=== PATIENT | female | born 1940 | race Caucasian/White ===

== ENCOUNTER → 2016-05-19 | Outpatient (CLI) | payer MEDICARE ==
--- NOTE | 2016-05-23 13:02 | MM ---
Reason for exam: screening (asymptomatic). Last mammogram was performed 1 year and 3 months ago. History: Patient is postmenopausal. Family history of breast cancer in aunt. Took hormonal contraceptives for 5 years beginning at age 24. Took estrogen for 1 year beginning at age 48. Physical Findings: A clinical breast exam by your physician is recommended on an annual basis and results should be correlated with mammographic findings. MG Screening Mammo w CAD Bilateral CC and MLO view(s) were taken. Prior study comparison: February 04, 2015, bilateral MG screening mammo w CAD. November 21, 2013, bilateral MG screening mammo w CAD. The breast tissue is almost entirely fat. There is no discrete abnormality. No significant changes when compared with prior studies. ASSESSMENT: Negative, BI-RAD 1 RECOMMENDATION: Routine screening mammogram of both breasts in 1 year.
== END | disposition home or self-care (01) ==
LOC: RADMAMWWP 14:31
PROVIDERS: ATTEND Family Medicine
DX: Z12.31 Encounter for screening mammogram for malignant neoplasm of breast (principal)

== ENCOUNTER 2017-10-17 07:08 | Day surgery (SDC) | payer MEDICARE ==
[2017-10-13 09:29] VITALS: BMI 22.6
[~2017-10-17 07:08] MED LIST: LACTATED RINGERS 1,000 ML IV SCH; LIDOCAINE 1% 20 ML VIAL (10MG/ML) FOR IV START INTRADERMA PRN
[2017-10-17 07:39] VITALS: RESP 16; TEMP 97.9
[2017-10-17] MEDS ORDERED: PROPOFOL 10 MG/ML 20 ML VIAL IV ONE (08:34)
--- NOTE | 2017-10-17 09:00 | P.PCN ---
Date of Procedure: 10/17/17 Procedure(s) Performed: Procedure: Total colonoscopy. Preoperative diagnosis: Screening for neoplasia. Postoperative diagnosis: Exam within normal limits. Preparation: HalfLytely prep. Sedation: Was provided by anesthesia. Brief clinical history: The patient is a 77-year-old female who is scheduled for this evaluation for screening for neoplasia. The patient had multiple exams over the years and had polyps removed on some these exams. Her last was around 7 years ago. The patient has no abdominal complaints, bleeding or anemia. Procedure: With the patient on her left lateral decubitus position and after informed consent and adequate sedation, the perianal area was inspected and it did not show any fissures or fistulas. There were no masses felt on digital rectal examination. The Olympus CFQ 160L video colonoscope was then inserted in the rectum in the usual fashion and advanced to the cecum. The mucosa appeared healthy. No polyps or tumors were seen or any obvious diverticular disease. I retroflexed the endoscope in the rectum before the endoscope was withdrawn. The patient tolerated the procedure well. Plan: The patient was reassured. At her age, I did not recommend further screening and that can be kept as a contingency based on her overall health in 5 years. She will discuss that with you.
[2017-10-17 09:15] VITALS: BP 143/70; PULSE 59
== END 2017-10-17 09:52 | disposition home or self-care (01) ==
LOC: ORWHC2ENDO 07:08
DX: Z12.11 Encounter for screening for malignant neoplasm of colon (principal); I12.9 Hypertensive chronic kidney disease with stage 1 through stage 4 chronic kidney disease, or unspecified chronic kidney disease; E07.9 Disorder of thyroid, unspecified; N18.9 Chronic kidney disease, unspecified; F41.9 Anxiety disorder, unspecified; F32.9 Major depressive disorder, single episode, unspecified; Z79.899 Other long term (current) drug therapy; Z79.82 Long term (current) use of aspirin
CPT/HCPCS: J2704; G0121

== ENCOUNTER → 2018-03-23 | Outpatient (CLI) | payer MEDICARE ==
--- NOTE | 2018-03-23 17:29 | BD ---
EXAMINATION TYPE: Axial Bone Density DATE OF EXAM: 03/23/2018 COMPARISON: 02/18/2010 CLINICAL HISTORY: 77-year-old female asymptomatic postmenopausal screening Height: 59.5 IN Weight: 122 LBS RISK FACTORS HISTORY OF: Active: YES Diet low in dairy products/other sources of calcium: YES Postmenopausal woman: AGE 48 HYST. Take estrogen and/or progesterone medications: NOT NOW How long: TOOK AGE 48 - 49 MEDICATIONS: Thyroid Medications: YES Which medication: Synthroid How Lon YEARS Additional Medications: SYNTHROID, BLOOD PRESSURE MEDS, XANAX, DEPRESSION EXAM MEASUREMENTS: Bone mineral densitometry was performed using the [employer] System. Bone mineral density as measured about the Lumbar spine is: ----- L1-L4(G/cm2): 1.193 T Score Values are as follows: ----- L2: -0.4 ----- L3: 0.4 ----- L4: 0.2 ----- L1-L4: 0.1 Bone mineral density has: Increased 1.1% since study of: 02/18/2010 Bone mineral density about the R hip (g/cm2): 0.752 Bone mineral density about the L hip (g/cm2): 0.739 T Score values are as follows: -----R Neck: -2.1 -----L Neck: -2.2 -----R Total: -1.1 -----L Total: -1.1 Bone mineral density has: Decreased -7.8% since study of: 02/18/2010 IMPRESSION: Osteopenia (T Score between -2.5 and -1). There is slightly increased risk of fracture and the patient may be considered for treatment. Re-Screen 2-5 years. NOTE: T-SCORE=SD OF THE YOUNG ADULT MEAN.
--- NOTE | 2018-03-27 07:02 | MM ---
Reason for exam: screening (asymptomatic). Last mammogram was performed 1 year and 10 months ago. History: Patient is postmenopausal. Family history of breast cancer in aunt. Took hormonal contraceptives for 5 years beginning at age 24. Took estrogen for 1 year beginning at age 48. Physical Findings: A clinical breast exam by your physician is recommended on an annual basis and results should be correlated with mammographic findings. MG Screening Mammo w CAD Bilateral CC and MLO view(s) were taken. Prior study comparison: May 19, 2016, bilateral MG screening mammo w CAD. February 04, 2015, bilateral MG screening mammo w CAD. There are scattered fibroglandular densities. There are vascular calcifications on the left present since 2013. No suspicious abnormality. No significant changes when compared with prior studies. ASSESSMENT: Benign, BI-RAD 2 RECOMMENDATION: Routine screening mammogram of both breasts in 1 year.
== END | disposition home or self-care (01) ==
LOC: RADMAMWWP 14:32
PROVIDERS: ATTEND Family Medicine
DX: Z12.31 Encounter for screening mammogram for malignant neoplasm of breast (principal); M85.851 Other specified disorders of bone density and structure, right thigh; M85.852 Other specified disorders of bone density and structure, left thigh; Z78.0 Asymptomatic menopausal state
CPT/HCPCS: 77067; 77080

== ENCOUNTER 2018-08-03 15:06 | Observation (INO) | payer MEDICARE ==
[2018-08-03] MEDS ORDERED: SODIUM CHLORIDE 0.9% 1,000 ML IV STA ×2 (15:21→16:54)
[2018-08-03 16:11] LABS: Albumin 3.3 g/dL (3.5-5.0); Calcium 8.2 mg/dL (8.4-10.2); Potassium 4.2 mmol/L (3.5-5.1); Total Bilirubin 0.5 mg/dL (0.2-1.3); Total Protein 5.7 g/dL (6.3-8.2)
[2018-08-03 16:23] LABS: Basophils % (A) 0 %; Eosinophils % (A) 0 %; HCT 27.7 % (34.0-46.0); HGB 9.3 gm/dL (11.4-16.0); Lymphocytes # (A) 0.7 k/uL (1.0-4.8); Lymphocytes % (A) 9 %; MCH 29.9 pg (25.0-35.0); MCHC 33.5 g/dL (31.0-37.0); MCV 89.3 fL (80.0-100.0); Mean Platelet Volume 8.9; Monocytes # (A) 0.5 k/uL (0-1.0); Monocytes % (A) 7 %; Neutrophils # (A) 5.9 k/uL (1.3-7.7); Neutrophils % (A) 81 %; Platelet Count 164 k/uL (150-450); RBC 3.11 m/uL (3.80-5.40); RDW 14.3 % (11.5-15.5); WBC 7.3 k/uL (3.8-10.6)
--- NOTE | 2018-08-03 16:32 | ED ---
Fever HPI - General Source: patient, RN notes reviewed Mode of arrival: ambulatory Limitations: no limitations <Kyle Forte - Last Filed: 08/03/18 16:31> - History of Present Illness MD Complaint: fever, weakness -: days(s) Temperature Source: subjective Associated Symptoms: chills, myalgias Treatments Prior to Arrival: none <Kayden Nieto - Last Filed: 08/03/18 19:28> - General Chief Complaint: Fever Stated Complaint: Fever/poss kidney infection Time Seen by Provider: 08/03/18 15:21 - History of Present Illness Initial Comments: 78-year-old female presents emergency Department with chief complaint of low back pain, fever, dysuria. Patient was seen in urgent care. Who said her urine was clear and sent her here for further evaluation. Patient has known kidney disease. Patient states that she has nausea no URI symptoms denies any night sweats. Denies any diarrhea constipation no melena or hematochezia. She states she just generally does not feel well. (Kyle Forte) - Related Data Home Medications Medication Instructions Recorded Confirmed ALPRAZolam [Xanax] 0.25 mg PO HS 10/13/17 08/03/18 Aspirin [Adult Low Dose Aspirin EC] 81 mg PO DAILY 10/13/17 08/03/18 Citalopram Hydrobromide 20 mg PO DAILY 10/13/17 08/03/18 [Citalopram HBr] Docusate [Colace] 100 mg PO TID 10/13/17 08/03/18 Levothyroxine Sodium [Synthroid] 75 mcg PO DAILY 10/13/17 08/03/18 Verapamil HCl [Verapamil ER] 120 mg PO DAILY 10/13/17 08/03/18 Allergies Allergy/AdvReac Type Severity Reaction Status Date / Time No Known Allergies Allergy Verified 08/03/18 16:00 Review of Systems ROS Other: All systems not noted in ROS Statement are negative. <Kyle Forte - Last Filed: 08/03/18 16:31> ROS Other: All systems not noted in ROS Statement are negative. <Kayden Nieto - Last Filed: 08/03/18 19:28> ROS Statement: Those systems with pertinent positive or pertinent negative responses have been documented in the HPI. Past Medical History Past Medical History: Hypertension, Renal Disease, Thyroid Disorder Additional Past Medical History / Comment(s): constipation, hx IBS, 29 % kidney function, History of Any Multi-Drug Resistant Organisms: None Reported Past Surgical History: Cholecystectomy, Hysterectomy Additional Past Surgical History / Comment(s): yovana cataracts Past Anesthesia/Blood Transfusion Reactions: Motion Sickness Past Psychological History: No Psychological Hx Reported Smoking Status: Never smoker Past Alcohol Use History: None Reported Past Drug Use History: None Reported - Past Family History Father Family Medical History: Cancer <Kyle Forte - Last Filed: 08/03/18 16:31> General Exam Limitations: no limitations General appearance: alert, in no apparent distress Head exam: Present: atraumatic, normocephalic, normal inspection Eye exam: Present: normal appearance, PERRL, EOMI. Absent: scleral icterus, conjunctival injection, periorbital swelling ENT exam: Present: normal exam, normal oropharynx, mucous membranes moist Neck exam: Present: normal inspection, full ROM. Absent: tenderness, meningismus, lymphadenopathy Respiratory exam: Present: normal lung sounds bilaterally. Absent: respiratory distress, wheezes, rales, rhonchi, stridor Cardiovascular Exam: Present: regular rate, normal rhythm, normal heart sounds. Absent: systolic murmur, diastolic murmur, rubs, gallop, clicks GI/Abdominal exam: Present: soft, tenderness (Mild suprapubic), normal bowel sounds. Absent: distended, guarding, rebound, rigid Back exam: Present: full ROM, tenderness (Lower), paraspinal tenderness. Absent: vertebral tenderness Neurological exam: Present: alert, oriented X3, CN II-XII intact Skin exam: Present: warm, dry, intact, normal color. Absent: rash <Kyle Forte - Last Filed: 08/03/18 16:31> General appearance: alert, in no apparent distress Head exam: Present: atraumatic, normocephalic, normal inspection Eye exam: Present: normal appearance, PERRL, EOMI. Absent: scleral icterus, conjunctival injection, periorbital swelling ENT exam: Present: normal exam, mucous membranes moist Neck exam: Present: normal inspection. Absent: tenderness, meningismus, lymphadenopathy Respiratory exam: Present: normal lung sounds bilaterally. Absent: respiratory distress, wheezes, rales, rhonchi, stridor Cardiovascular Exam: Present: regular rate, normal rhythm, normal heart sounds. Absent: systolic murmur, diastolic murmur, rubs, gallop, clicks GI/Abdominal exam: Present: soft, normal bowel sounds. Absent: distended, tenderness, guarding, rebound, rigid Extremities exam: Present: normal inspection, full ROM, normal capillary refill. Absent: tenderness, pedal edema, joint swelling, calf tenderness Back exam: Present: normal inspection Neurological exam: Present: alert, oriented X3, CN II-XII intact Psychiatric exam: Present: normal affect, normal mood Skin exam: Present: warm, dry, intact, normal color. Absent: rash <Kayden Nieto - Last Filed: 08/03/18 19:28> Course <Kayden Nieto - Last Filed: 08/03/18 19:28> Vital Signs 08/03/18 08/03/18 08/03/18 15:16 17:42 19:00 Temperature 101.7 F H 100.0 F H 98.1 F Pulse Rate 86 82 Respiratory 20 18 Rate Blood Pressure 130/63 124/58 O2 Sat by Pulse 98 95 Oximetry - Reevaluation(s) Reevaluation #1: 08/03/18 19:27 Patient unable to give urination, still dehydrated (Kayden Nieto) Medical Decision Making - Lab Data Result diagrams: 08/03/18 15:40 08/03/18 15:40 <Kyle Forte - Last Filed: 08/03/18 16:31> - Lab Data Result diagrams: 08/03/18 15:40 08/03/18 15:40 <Kayden Nieto - Last Filed: 08/03/18 19:28> - Medical Decision Making 70 female the ER for evaluation positive UTI. Patient will be admitted for IV antibiotics (Kayden Nieto) - Lab Data Lab Results 08/03/18 08/03/18 08/03/18 Range/Units 15:40 15:40 15:40 WBC 7.3 (3.8-10.6) k/uL RBC 3.11 L (3.80-5.40) m/uL Hgb 9.3 L (11.4-16.0) gm/dL Hct 27.7 L (34.0-46.0) % MCV 89.3 (80.0-100.0) fL MCH 29.9 (25.0-35.0) pg MCHC 33.5 (31.0-37.0) g/dL RDW 14.3 (11.5-15.5) % Plt Count 164 (150-450) k/uL Neutrophils % 81 % Lymphocytes % 9 % Monocytes % 7 % Eosinophils % 0 % Basophils % 0 % Neutrophils # 5.9 (1.3-7.7) k/uL Lymphocytes # 0.7 L (1.0-4.8) k/uL Monocytes # 0.5 (0-1.0) k/uL Eosinophils # 0.0 (0-0.7) k/uL Basophils # 0.0 (0-0.2) k/uL Sodium 130 L (137-145) mmol/L Potassium 4.2 (3.5-5.1) mmol/L Chloride 101 (98-107) mmol/L Carbon Dioxide 19 L (22-30) mmol/L Anion Gap 10 mmol/L BUN 31 H (7-17) mg/dL Creatinine 1.30 H (0.52-1.04) mg/dL Est GFR (CKD-EPI)AfAm 46 (>60 ml/min/1.73 sqM) Est GFR (CKD-EPI)NonAf 40 (>60 ml/min/1.73 sqM) Glucose 127 H (74-99) mg/dL Plasma Lactic Acid Carlos 0.7 (0.7-2.0) mmol/L Calcium 8.2 L (8.4-10.2) mg/dL Total Bilirubin 0.5 (0.2-1.3) mg/dL AST 34 (14-36) U/L ALT 23 (9-52) U/L Alkaline Phosphatase 50 (38-126) U/L Total Protein 5.7 L (6.3-8.2) g/dL Albumin 3.3 L (3.5-5.0) g/dL Lipase 199 (23-300) U/L Disposition <Kyle Forte - Last Filed: 08/03/18 16:31> Is patient prescribed a controlled substance at d/c from ED?: No <Kayden Nieto - Last Filed: 08/03/18 19:28> Clinical Impression: UTI (urinary tract infection), Fever, Dehydration Disposition: ADMITTED IP TO THIS [facility] Condition: Good Referrals: Kayden Trammell MD [Primary Care Provider] - 1-2 days
--- NOTE | 2018-08-03 16:51 | CT ---
EXAMINATION TYPE: CT abdomen pelvis wo con DATE OF EXAM: 08/03/2018 COMPARISON: None HISTORY: Dysuria and low back pain CT DLP: 323.1 mGycm Automated exposure control for dose reduction was used. TECHNIQUE: Helical acquisition of images was performed from the lung bases through the pelvis. FINDINGS: Within the limits of noncontrast CT the following observations are made. LUNG BASES: There are two ill-defined 3 cm consolidative opacities in the periphery of the right lung base, suggesting multifocal bronchopneumonia if clinically corroborated. LIVER/GB: No significant abnormality is appreciated. PANCREAS: No significant abnormality is seen. SPLEEN: No significant abnormality is seen. ADRENALS: No significant abnormality is seen. KIDNEYS: The kidneys and collecting systems are unremarkable. No renal or ureteral calcifications. Th e urinary bladder is not distended and has normal appearance as seen. FREE AIR: No free air is visualized RETROPERITONEAL ADENOPATHY: None visualized REPRODUCTIVE ORGANS: No significant abnormality is seen URINARY BLADDER: No significant abnormality is seen. PELVIC ADENOPATHY: None visualized. OSSEOUS STRUCTURES: No focal skeletal lesions. There is levoscoliosis apex at the L2-3 level. Mult ilevel lumbar spondylosis changes, consisting of moderate and marked degenerative facet changes and m ild and moderate degenerative disc changes. The morphology of the vertebral segments is maintained. T here is degenerative 3 mm L4 anterior listhesis with respect to L5. BOWEL: No significant abnormality is seen. IMPRESSION: NO DEFINITE ACUTE PROCESS. HOWEVER, RIGHT LUNG BASE PARTIAL AIRLESSNESS NOTED.
[2018-08-03 20:36] LABS: Amorphous Sediment,Urine Rare /hpf; Appearance,Urine Cloudy (Clear); Bilirubin,Urine Negative (Negative); Blood,Urine Negative (Negative); Color,Urine Yellow; Glucose,Urine (UA) Negative (Negative); Granular Casts,Urine 16 /lpf (0); Hyaline Casts,Urine 1 /lpf (0-2); Ketones,Urine Negative (Negative); Leukocyte Esterase,Urine Small (Negative); Mucus,Urine Rare /hpf; Nitrite,Urine Negative (Negative); PH, Urine 5.5 (5.0-8.0); Protein,Urine 1+ (Negative); RBC,Urine 1 /hpf (0-5); Specific Gravity,Urine 1.015 (1.001-1.035); Squamous Epithelial Cell,Urine 3 /hpf (0-4); Urobilinogen,Urine <2.0 mg/dL (<2.0)
[2018-08-03] MEDS ORDERED: AZITHROMYCIN 500 MG in SODIUM CHLORIDE 0.9% 250 ML IVPB STA (20:51)
[2018-08-03] MEDS: SODIUM CHLORIDE 0.9% 1,000 ML IV ONE (20:56)
--- NOTE | 2018-08-03 21:17 | XR ---
EXAMINATION: XR chest 2V DATE AND TIME: 08/03/2018 9:02 PM CLINICAL INDICATION: PHH; fever TECHNIQUE: Departmental protocol COMPARISON: None FINDINGS: There is partially-confluent consolidative opacity which is ill-defined throughout the right lower shelly ng zone. Lungs are otherwise unremarkable. The pleural spaces are negative. The cardiac silhouette is not enlarged. The remainder of the mediastinal silhouette is unremarkable. The skeletal structures and soft tissues are negative for acute findings. IMPRESSION: Right lower lung zone pneumonia. Recommend 6 week follow-up PA and lateral chest radiographs to prove resolution.
[2018-08-03 21:39] VITALS: BMI 24.7
[2018-08-03] MEDS: ASPIRIN 81 MG PO SCH (22:09)
[2018-08-03] MEDS: ALPRAZolam 0.25 MG TAB PO SCH (22:09)
[2018-08-03] MEDS: DOCUSATE 100 MG CAP PO SCH (22:51)
[2018-08-04] MEDS: ACETAMINOPHEN TAB 325 MG TAB PO PRN ×3 (00:41→23:21)
[2018-08-04] MEDS: SODIUM CHLORIDE 0.9% 1,000 ML IV ONE (04:32)
[2018-08-04] MEDS: LEVOTHYROXINE 75 MCG TAB PO SCH (07:01)
[2018-08-04] MEDS: CITALOPRAM HYDROBROMIDE 20 MG TAB PO SCH (08:53)
[2018-08-04] MEDS: DOCUSATE 100 MG CAP PO SCH ×3 (08:53→19:59)
[2018-08-04] MEDS: ASPIRIN 81 MG PO SCH (08:53)
[2018-08-04] MEDS ORDERED: VERAPAMIL SR 120 MG TABLET.ER PO SCH (09:00)
[2018-08-04] MEDS: SODIUM CHLORIDE 0.9% 1,000 ML IV SCH ×2 (12:18→20:01)
--- NOTE | 2018-08-04 13:00 | P.HPIM ---
History of Present Illness 78-year-old pleasant female came in with compensative dysuria fever patient to high-grade fever yesterday urine are not significant abnormal small leukocyte esterase and some white blood cell count but no other source of infection was appreciated CAT scan was done which did not show any pneumonia. A CAT scan was actually for abdomen chest x-ray did not show any pneumonic process patient is comparing of cough without any significant sputum production patient was started on Rocephin and azithromycin azithromycin was discontinued Rocephin is being continued at this time. Patient does have infiltrate in the chair CAT scan but no air bronchogram not consistent with pneumonia.she does have urinary symptoms. Review of Systems i REVIEW OF SYSTEMS: CONSTITUTIONAL: No fever, no malaise, no fatigue. HEENT: No recent visual problems or hearing problems. Denied any sore throat. CARDIOVASCULAR: No chest pain, orthopnea, PND, no palpitations, no syncope. PULMONARY: No shortness of breath, no cough, no hemoptysis. GASTROINTESTINAL: No diarrhea, no nausea, no vomiting, no abdominal pain. NEUROLOGICAL: No headaches, no weakness, no numbness. HEMATOLOGICAL: Denies any bleeding or petechiae. GENITOURINARY: as mentioned in HPI MUSCULOSKELETAL/RHEUMATOLOGICAL: Denies any joint pain, swelling, or any muscle pain. ENDOCRINE: Denies any polyuria or polydipsia. The rest of the 14-point review of systems is negative. Past Medical History Past Medical History: Hypertension, Renal Disease, Thyroid Disorder Additional Past Medical History / Comment(s): constipation, hx IBS, 29 % kidney function, History of Any Multi-Drug Resistant Organisms: None Reported Past Surgical History: Cholecystectomy, Hysterectomy Additional Past Surgical History / Comment(s): yovana cataracts Past Anesthesia/Blood Transfusion Reactions: No Reported Reaction Past Psychological History: No Psychological Hx Reported Smoking Status: Never smoker Past Alcohol Use History: None Reported Past Drug Use History: None Reported - Past Family History Father Family Medical History: Cancer Medications and Allergies Home Medications Medication Instructions Recorded Confirmed Type ALPRAZolam [Xanax] 0.25 mg PO HS 10/13/17 08/03/18 History Aspirin [Adult Low Dose Aspirin EC] 81 mg PO DAILY 10/13/17 08/03/18 History Citalopram Hydrobromide 20 mg PO DAILY 10/13/17 08/03/18 History [Citalopram HBr] Docusate [Colace] 100 mg PO TID 10/13/17 08/03/18 History Levothyroxine Sodium [Synthroid] 75 mcg PO DAILY 10/13/17 08/03/18 History Verapamil HCl [Verapamil ER] 120 mg PO DAILY 10/13/17 08/03/18 History Allergies Allergy/AdvReac Type Severity Reaction Status Date / Time No Known Allergies Allergy Verified 08/03/18 21:39 Physical Exam Vitals: Vital Signs Temp Pulse Pulse Resp BP BP Pulse Ox 08/04/18 08:52 92/51 08/04/18 08:25 97.8 F 71 16 85/50 96 08/04/18 04:48 97.9 F 62 18 117/69 94 L 08/04/18 00:50 98.6 F 72 18 118/56 94 L 08/04/18 00:00 72 18 08/03/18 22:54 66 16 08/03/18 21:21 98.3 F 66 16 126/64 97 08/03/18 21:19 98.3 F 66 16 126/64 97 08/03/18 20:09 100.1 F H 69 17 120/55 100 08/03/18 19:00 98.1 F 82 18 124/58 95 08/03/18 17:42 100.0 F H 08/03/18 15:16 101.7 F H 86 20 130/63 98 Intake and Output 08/03/18 08/04/18 08/04/18 22:59 06:59 14:59 Other: Voiding Method Toilet Toilet # Voids 1 1 1 Weight 53.977 kg PHYSICAL EXAMINATION: GENERAL: The patient is alert and oriented x3, not in any acute distress. Well developed, well nourished. HEENT: Pupils are round and equally reacting to light. EOMI. No scleral icterus. No conjunctival pallor. Normocephalic, atraumatic. No pharyngeal erythema. No thyromegaly. CARDIOVASCULAR: S1 and S2 present. No murmurs, rubs, or gallops. PULMONARY: Chest is clear to auscultation, no wheezing or crackles. ABDOMEN: Soft, nontender, nondistended, normoactive bowel sounds. No palpable organomegaly. MUSCULOSKELETAL: No joint swelling or deformity. EXTREMITIES: No cyanosis, clubbing, or pedal edema. NEUROLOGICAL: Gross neurological examination did not reveal any focal deficits. SKIN: No rashes. Results CBC & Chem 7: 08/03/18 15:40 08/03/18 15:40 Labs: Abnormal Lab Results - Last 24 Hours (Table) 08/03/18 08/03/18 08/03/18 Range/Units 15:40 15:40 20:00 RBC 3.11 L (3.80-5.40) m/uL Hgb 9.3 L (11.4-16.0) gm/dL Hct 27.7 L (34.0-46.0) % Lymphocytes # 0.7 L (1.0-4.8) k/uL Sodium 130 L (137-145) mmol/L Carbon Dioxide 19 L (22-30) mmol/L BUN 31 H (7-17) mg/dL Creatinine 1.30 H (0.52-1.04) mg/dL Glucose 127 H (74-99) mg/dL Calcium 8.2 L (8.4-10.2) mg/dL Total Protein 5.7 L (6.3-8.2) g/dL Albumin 3.3 L (3.5-5.0) g/dL Urine Appearance Cloudy H (Clear) Urine Protein 1+ H (Negative) Ur Leukocyte Esterase Small H (Negative) Urine WBC 7 H (0-5) /hpf Amorphous Sediment Rare H (None) /hpf Urine Mucus Rare H (None) /hpf Thrombosis Risk Factor Assmnt - Choose All That Apply Each Factor Represents 1 point: Hx of IBD, Varicose veins Other Risk Factors: No Other congenital or acquired thrombophilia - If yes, enter type in comment: No Thrombosis Risk Factor Assessment Total Risk Factor Score: 2 Thrombosis Risk Factor Assessment Level: Low Risk Assessment and Plan Plan: -sepsis secondary to urinary tract infection most probably do not believe patient has pneumonia. Patient will continue on Rocephin and azithromycin were dyspnea -Acute renal failure prerenal azotemia from sepsis and patient will continued on IV fluids and repeat the CBC and basic metabolic profile tomorrow -hypovolemic hyponatremia expected to improve with IV fluids -hypertension -Hypothyroidism For above-mentioned chronic medical problems patient will be resumed and continued on home medications. DVT prophylaxis early ambulation
[2018-08-04] MEDS: ALPRAZolam 0.25 MG TAB PO SCH (19:59)
[2018-08-04] MEDS ORDERED: CALCIUM CARBONATE 500 MG CHEWABLE PO PRN (20:50)
[2018-08-04] MEDS ORDERED: AZITHROMYCIN 500 MG in SODIUM CHLORIDE 0.9% 250 ML IVPB SCH (21:00)
[2018-08-04 22:36] VITALS: RESP 18
[2018-08-05] MEDS: LEVOTHYROXINE 75 MCG TAB PO SCH (05:23)
[2018-08-05 05:42] VITALS: BP 121/64; PULSE 86; TEMP 98.1
[2018-08-05] MEDS: DOCUSATE 100 MG CAP PO SCH ×2 (07:24→07:25)
[2018-08-05] MEDS: CITALOPRAM HYDROBROMIDE 20 MG TAB PO SCH (07:24)
[2018-08-05] MEDS: ASPIRIN 81 MG PO SCH (07:24)
[2018-08-05 08:16] LABS: Calcium 7.9 mg/dL (8.4-10.2); Potassium 4.5 mmol/L (3.5-5.1)
[2018-08-05 08:39] LABS: HCT 27.5 % (34.0-46.0); HGB 9.2 gm/dL (11.4-16.0); MCHC 33.3 g/dL (31.0-37.0); Mean Platelet Volume 8.4; Platelet Count 194 k/uL (150-450); RBC 3.05 m/uL (3.80-5.40); RDW 13.4 % (11.5-15.5); WBC 6.7 k/uL (3.8-10.6)
[2018-08-05] MEDS: SODIUM CHLORIDE 0.9% 1,000 ML IV SCH (09:17)
--- NOTE | 2018-08-05 15:27 | P.DS ---
Providers Date of admission: 08/03/18 19:25 Attending physician: Yamilex Singh Primary care physician: [facility] Course: 78-year-old pleasant female came in with compensative dysuria fever patient to high-grade fever yesterday urine are not significant abnormal small leukocyte esterase and some white blood cell count but no other source of infection was appreciated CAT scan was done which did not show any pneumonia. A CAT scan was actually for abdomen chest x-ray did not show any pneumonic process patient is comparing of cough without any significant sputum production patient was started on Rocephin and azithromycin azithromycin was discontinued Rocephin is being continued at this time. Patient does have infiltrate in the chair CAT scan but no air bronchogram not consistent with pneumonia.she does have urinary symptoms. 08/05/2018 Patient is afebrile, I do not have any urine cultures available at this time but patient is insisting on discharge because of which I'll discharged on empiric antibiotics Ceftin for 5 more days comparing total 7 day of therapy. PHYSICAL EXAMINATION: GENERAL: The patient is alert and oriented x3, not in any acute distress. Well developed, well nourished. HEENT: Pupils are round and equally reacting to light. EOMI. No scleral icterus. No conjunctival pallor. Normocephalic, atraumatic. No pharyngeal erythema. No thyromegaly. CARDIOVASCULAR: S1 and S2 present. No murmurs, rubs, or gallops. PULMONARY: Chest is clear to auscultation, no wheezing or crackles. ABDOMEN: Soft, nontender, nondistended, normoactive bowel sounds. No palpable organomegaly. MUSCULOSKELETAL: No joint swelling or deformity. EXTREMITIES: No cyanosis, clubbing, or pedal edema. NEUROLOGICAL: Gross neurological examination did not reveal any focal deficits. SKIN: No rashes. Assessment and Plan Plan: -sepsis secondary to urinary tract infection most probably do not believe patient has pneumonia. -Acute renal failure prerenal azotemia from sepsis patient has improvement in serum creatinine appears to have chronic kidney disease secondary to nephrosclerosis her C Isabelle is probably stage II or 3 -hypovolemic hyponatremia improved with IV fluids -hypertension Patient Condition at Discharge: Good Plan - Discharge Summary Discharge Rx Participant: No New Discharge Prescriptions: New Cefuroxime Axetil [Ceftin] 500 mg PO BID 5 Days #10 tab Continue Docusate [Colace] 100 mg PO TID ALPRAZolam [Xanax] 0.25 mg PO HS Verapamil HCl [Verapamil ER] 120 mg PO DAILY Levothyroxine Sodium [Synthroid] 75 mcg PO DAILY Aspirin [Adult Low Dose Aspirin EC] 81 mg PO DAILY Citalopram Hydrobromide [Citalopram HBr] 20 mg PO DAILY Discharge Medication List ALPRAZolam [Xanax] 0.25 mg PO HS 10/13/17 [History] Aspirin [Adult Low Dose Aspirin EC] 81 mg PO DAILY 10/13/17 [History] Citalopram Hydrobromide [Citalopram HBr] 20 mg PO DAILY 10/13/17 [History] Docusate [Colace] 100 mg PO TID 10/13/17 [History] Levothyroxine Sodium [Synthroid] 75 mcg PO DAILY 10/13/17 [History] Verapamil HCl [Verapamil ER] 120 mg PO DAILY 10/13/17 [History] Cefuroxime Axetil [Ceftin] 500 mg PO BID 5 Days #10 tab 08/05/18 [Rx] Follow up Appointment(s)/Referral(s): Kayden Trammell MD [Primary Care Provider] - 3 Days (call office for appt during business hours) Patient Instructions/Handouts: Urinary Tract Infection in Women (DC) Discharge Disposition: HOME SELF-CARE
== END 2018-08-05 14:48 | disposition home or self-care (01) ==
LOC: EC 15:06 → 6PED 19:25 → 4MS4W 08-04 09:31
PROVIDERS: ADMIT Hospitalist; ATTEND Hospitalist
DX: A41.9 Sepsis, unspecified organism (principal); N39.0 Urinary tract infection, site not specified; N17.9 Acute kidney failure, unspecified; R65.20 Severe sepsis without septic shock; I12.9 Hypertensive chronic kidney disease with stage 1 through stage 4 chronic kidney disease, or unspecified chronic kidney disease; N18.2 Chronic kidney disease, stage 2 (mild); E87.1 Hypo-osmolality and hyponatremia; E86.1 Hypovolemia; E03.9 Hypothyroidism, unspecified; K58.9 Irritable bowel syndrome, unspecified; K59.00 Constipation, unspecified; R91.8 Other nonspecific abnormal finding of lung field; E86.0 Dehydration; I83.90 Asymptomatic varicose veins of unspecified lower extremity; Z79.82 Long term (current) use of aspirin; Z79.890 Hormone replacement therapy; Z79.899 Other long term (current) drug therapy; Z90.49 Acquired absence of other specified parts of digestive tract; Z90.710 Acquired absence of both cervix and uterus; Z98.42 Cataract extraction status, left eye; Z98.41 Cataract extraction status, right eye; Z80.9 Family history of malignant neoplasm, unspecified
CPT/HCPCS: 96366 ×3; 96367; 96361; 96365; 99285; 36415; 80053; 80048; 83605; 83690; 85025; 85027; 81001; 87040; 71046; 74176; G0378 ×3; J0456; J0696 ×3

== ENCOUNTER → 2018-12-27 | Outpatient (CLI) | payer MEDICARE ==
--- NOTE | 2018-12-27 12:55 | US ---
EXAMINATION TYPE: US kidneys/renal and bladder DATE OF EXAM: 12/27/2018 COMPARISON: NONE CLINICAL HISTORY: N18.3 CKD Stage 3. EXAM MEASUREMENTS: Right Kidney: 7.8 x 3.5 x 3.4 cm Left Kidney: 8.7 x 4.5 x 3.6 cm Right Kidney: atrophic with cortical thinning Left Kidney: atrophic with cortical thinning Bladder: wnl Bilateral Jets seen: yes There is no evidence for hydronephrosis at this point in time. No nephrolithiasis is seen. No edgard s are identified. The urinary bladder is anechoic. Bilateral ureteral jets are seen. IMPRESSION: Sequela of chronic medical renal disease with bilateral cortical renal thinning and small size of the kidneys. No hydronephrosis of either kidney.
== END | disposition home or self-care (01) ==
LOC: RADUSWWP 12:01
PROVIDERS: ATTEND Internal Medicine Nephrology
DX: N18.3 Chronic kidney disease, stage 3 (moderate) (principal)
CPT/HCPCS: 76770

== ENCOUNTER → 2020-03-13 | Outpatient (CLI) | payer MEDICARE ==
--- NOTE | 2020-03-16 09:36 | MM ---
Reason for exam: screening (asymptomatic). Last mammogram was performed 2 years ago. History: Patient is postmenopausal. Family history of breast cancer in aunt. Took hormonal contraceptives for 5 years beginning at age 24. Took estrogen for 1 year beginning at age 48. Physical Findings: A clinical breast exam by your physician is recommended on an annual basis and results should be correlated with mammographic findings. MG 3D Screening Mammo W/Cad Bilateral CC and MLO view(s) were taken. Prior study comparison: March 23, 2018, bilateral MG screening mammo w CAD. May 19, 2016, bilateral MG screening mammo w CAD. The breast tissue is heterogeneously dense. This may lower the sensitivity of mammography. Focal asymmetry upper outer right breast posterior third position. This finding is changed when compared with previous exams. ASSESSMENT: Incomplete: need additional imaging evaluation, BI-RAD 0 RECOMMENDATION: Special view mammogram of the right breast. If lesion persists on supplemental views, image directed ultrasound is recommended. [facility] will attempt to contact patient to return for supplemental views and ultrasound if indicated.
== END | disposition home or self-care (01) ==
LOC: RADMAMWWP 09:39
PROVIDERS: ATTEND Family Medicine
DX: Z12.31 Encounter for screening mammogram for malignant neoplasm of breast (principal)
CPT/HCPCS: 77063; 77067

== ENCOUNTER → 2020-04-03 | Outpatient (CLI) | payer MEDICARE ==
--- NOTE | 2020-04-03 12:00 | MM ---
Reason for exam: additional evaluation requested from abnormal screening. Last mammogram was performed 1 month ago. History: Patient is postmenopausal. Family history of breast cancer in aunt. Took hormonal contraceptives for 5 years beginning at age 24. Took estrogen for 1 year beginning at age 48. Physical Findings: Nurse did not find any significant physical abnormalities on exam. MG 3D Work Up W/Cad RT Spot compression CC, spot compression MLO, and LM view(s) were taken of the right breast. Prior study comparison: March 13, 2020, bilateral MG 3d screening mammo w/cad. March 23, 2018, bilateral MG screening mammo w CAD. There is no discrete abnormality including area of concern. These results were verbally communicated with the patient and result sheet given to the patient on 04/03/20. ASSESSMENT: Negative, BI-RAD 1 RECOMMENDATION: Return to routine screening mammogram schedule for both breasts.
--- NOTE | 2020-04-03 12:51 | BD ---
EXAMINATION TYPE: Axial Bone Density DATE OF EXAM: 04/03/2020 COMPARISON: 03/23/2018 CLINICAL HISTORY: Height: 59 IN Weight: 114 LBS RISK FACTORS HISTORY OF: Active: YES Diet low in dairy products/other sources of calcium: YES Postmenopausal woman: TOTAL HYST Take estrogen and/or progesterone medications: NOT NOW How long: TOOK PREVIOUSLY FOR 1 YEAR MEDICATIONS: Thyroid Medications: YES Which medication: Synthroid How Lon+ YEARS Additional Medications: VIT D, VERAPAMIL, SYNTHROID, ASPIRIN, ALPRAZOLOM, STOOL SOFTENER, CITALOPRAM EXAM MEASUREMENTS: Bone mineral densitometry was performed using the [employer]. Bone mineral density as measured about the Lumbar spine is: ----- L1-L4(G/cm2): 1.189 T Score Values are as follows: ----- L2: 0.3 ----- L3: 0.8 ----- L4: -0.4 ----- L1-L4: 0.1 Bone mineral density has: Increased 1.1% since study of: 03/23/2018 Bone mineral density about the R hip (g/cm2): 0.761 Bone mineral density about the L hip (g/cm2): 0.723 T Score values are as follows: -----R Neck: -2.0 -----L Neck: -2.3 -----R Total: -1.6 -----L Total: -1.4 Bone mineral density has: Decreased -5.5% since study of: 03/23/2018 IMPRESSION: Osteopenia NOTE: T-SCORE=SD OF THE YOUNG ADULT MEAN.
== END | disposition home or self-care (01) ==
LOC: RADBDWWP 09:06
PROVIDERS: ATTEND Family Medicine
DX: M85.80 Other specified disorders of bone density and structure, unspecified site (principal); R92.8 Other abnormal and inconclusive findings on diagnostic imaging of breast; Z78.0 Asymptomatic menopausal state
CPT/HCPCS: 77080; 77065; G0279; 77061

== ENCOUNTER 2020-08-25 13:01 | Inpatient (IN) | payer MEDICARE ==
[2020-08-25] MEDS ORDERED: SODIUM CHLORIDE 0.9% 500 ML 500 ML IV STA (13:54)
--- NOTE | 2020-08-25 14:07 | ED ---
General Adult HPI - General Source: patient, EMS, RN notes reviewed, old records reviewed Mode of arrival: EMS Limitations: no limitations - History of Present Illness -: hour(s) (2) Severity scale (1-10): 0 Improves with: rest Associated Symptoms: denies other symptoms Treatments Prior to Arrival: other (CPR) <Ghassan Ricketts - Last Filed: 08/25/20 15:56> <Edin Mckeon - Last Filed: 08/25/20 15:57> - General Chief complaint: Syncope Stated complaint: Syncope - History of Present Illness Initial comments: 80-year-old white female, alert and oriented 4, presents to the emergency room with a syncopal episode at [employer] during the . Patient states that she stood up in the [employer] was doing some singing and then felt a little lightheaded she sat back down but then he has been to stand again at that point she started to walk out and felt lightheaded. She leaned over the table and that was lasting she remembered. Bystanders stated dates started CPR. Patient does not recall this. Patient is alert and oriented at this time vital signs are stable with heart rate of 78. She is well-appearing. She has a history of hypertension, renal disease, irritable bowel syndrome, CKD and anxiety. She has surgical history of cholecystectomy and hysterectomy. Patient states that she takes Xanax and is due to see her primary care doctor on September 03. Patient states at home she been taking care of her has Alzheimer's and it's been increasingly stressful. Her daughter is just moved in to help her. And then had this done in the family. She has increased stress and has not been hydra ting well. (Ghassan Ricketts) - Related Data Home Medications Medication Instructions Recorded Confirmed ALPRAZolam [Xanax] 0.25 mg PO HS 10/13/17 08/03/18 Aspirin [Adult Low Dose Aspirin EC] 81 mg PO DAILY 10/13/17 08/03/18 Citalopram Hydrobromide 20 mg PO DAILY 10/13/17 08/03/18 [Citalopram HBr] Docusate [Colace] 100 mg PO TID 10/13/17 08/03/18 Levothyroxine Sodium [Synthroid] 75 mcg PO DAILY 10/13/17 08/03/18 Verapamil HCl [Verapamil ER] 120 mg PO DAILY 10/13/17 08/03/18 Previous Rx's Medication Instructions Recorded Cefuroxime Axetil [Ceftin] 500 mg PO BID 5 Days #10 tab 08/05/18 Allergies Allergy/AdvReac Type Severity Reaction Status Date / Time No Known Allergies Allergy Verified 08/25/20 13:11 Review of Systems ROS Other: All systems not noted in ROS Statement are negative. <Ghassan Ricketts - Last Filed: 08/25/20 15:56> ROS Other: All systems not noted in ROS Statement are negative. <Edin Mckeon - Last Filed: 08/25/20 15:57> ROS Statement: Those systems with pertinent positive or pertinent negative responses have been documented in the HPI. Past Medical History Past Medical History: Hypertension, Renal Disease, Thyroid Disorder Additional Past Medical History / Comment(s): constipation, hx IBS, 29 % kidney function, History of Any Multi-Drug Resistant Organisms: None Reported Past Surgical History: Cholecystectomy, Hysterectomy Additional Past Surgical History / Comment(s): yovana cataracts Past Anesthesia/Blood Transfusion Reactions: No Reported Reaction Past Psychological History: No Psychological Hx Reported Smoking Status: Never smoker Past Alcohol Use History: None Reported Past Drug Use History: None Reported - Past Family History Father Family Medical History: Cancer <Ghassan Ricketts - Last Filed: 08/25/20 15:56> General Exam Limitations: no limitations General appearance: alert, in no apparent distress Head exam: Present: atraumatic, normocephalic, normal inspection Eye exam: Present: normal appearance, PERRL, EOMI. Absent: scleral icterus, conjunctival injection, periorbital swelling Pupils: Present: normal accommodation ENT exam: Present: normal exam, mucous membranes dry Neck exam: Present: normal inspection, full ROM. Absent: tenderness, meningismus, lymphadenopathy, thyromegaly Respiratory exam: Present: normal lung sounds bilaterally, chest wall tenderness. Absent: respiratory distress, wheezes, rales, rhonchi, stridor, a ccessory muscle use, decreased breath sounds, prolonged expiratory Cardiovascular Exam: Present: regular rate, normal rhythm, normal heart sounds. Absent: systolic murmur, diastolic murmur, rubs, gallop, clicks GI/Abdominal exam: Present: soft, normal bowel sounds. Absent: distended, tenderness, guarding, rebound, rigid Extremities exam: Present: normal inspection, full ROM, normal capillary refill. Absent: tenderness, pedal edema, joint swelling, calf tenderness Back exam: Present: normal inspection, full ROM. Absent: tenderness, CVA tenderness (R), CVA tenderness (L), muscle spasm, paraspinal tenderness, vertebral tenderness, rash noted Neurological exam: Present: alert, oriented X3, CN II-XII intact Psychiatric exam: Present: normal affect, normal mood Skin exam: Present: warm, dry, intact, normal color. Absent: rash, cyanosis, diaphoretic, erythema, petechiae, pallor, mottled <Ghassan Ricketts - Last Filed: 08/25/20 15:56> Course - Reevaluation(s) Time: 15:24 <Ghassan Ricketts - Last Filed: 08/25/20 15:56> <Edin Mckeon - Last Filed: 08/25/20 15:57> Vital Signs 08/25/20 13:03 Pulse Rate 81 Respiratory 18 Rate Blood Pressure 125/68 O2 Sat by Pulse 97 Oximetry - Reevaluation(s) Reevaluation #1: 08/25/20 15:24 Dr. Mckeon to bedside. Patient was offered to be admitted to the hospital for observation but refuses. States that she wants to go home and will follow up with her own primary Doctor or return to the emergency room with worsening symptoms. Her son is at the bedside and also agrees that he will bring her back with worsening symptoms. Patient is alert and oriented 4. (Ghassan Ricketts) Reevaluation #2: 08/25/20 15:57 PA supervision: I proceeded [id number] evaluation the patient. She did present with complaints of a syncopal episode while at a service in a hot environment. Patient did apparently have CPR performed by a bystander who does she has to stop with a were doing. Patient is awake alert oriented 3 with no apparent distress he felt back to her normal self. Was however found during the evaluation that demonstrate evidence of anemia per the labs. Patient has agreed at this time to stay in the hospital for inpatient evaluation and treatment I did discuss this with her and her son was present. I do agree with the assessment and plan. (Edin Mckeon) EKG Findings - EKG Results: EKG: sinus rhythm (Ventricular rate of 78, NC interval of 0.172, QRS of 0.112, QTC 0.490) <Ghassan Ricketts - Last Filed: 08/25/20 15:56> Medical Decision Making - Lab Data Result diagrams: 08/25/20 14:40 08/25/20 14:11 <Ghassan Ricketts - Last Filed: 08/25/20 15:56> - Lab Data Result diagrams: 08/25/20 14:40 08/25/20 14:11 <Edin Mckeon - Last Filed: 08/25/20 15:57> - Medical Decision Making EKG does not show any ST elevation or acute changes. Heart size is normal limits, there is degenerative changes of her thoracic spine and osteopenia. No pulmonary disease. There is a new wedge compression fracture deformity of the mid thoracic vertebral body which was not seen in July 2018. However patient does state that she has low back pain chronically and sees Dr. Trammell denies any recent injury or worsening pain. Patient has a negative straight leg test bilaterally. No pain with palpation to the spine. Hemoglobin is 6.4 patient states she does have a history of anemia with her last hemoglobin 9.2 in July 2018. Potassium is 4.8, BUN is 76 and creatinine is 1.66 which is consistent for patient with chronic kidney disease last labs being a BUN of 23 and a creatinine of 1.21 in July 2018. This is also consistent with patient's dehyd ration today she states she did not drink anything prior to the because she did not want to urinate. Patient has dry sticky mucous membranes, Patient was given a 500cc of normal saline, states she is feeling much better. She believes this was just dehydration. Dr. Mckeon to bedside to evaluate patient. Son at bedside. Patient will be admitted as observation for symptomatic anemia. (Ghassan Ricketts) - Lab Data Lab Results 08/25/20 08/25/20 08/25/20 Range/Units 14:11 14:11 14:40 WBC 7.9 (3.8-10.6) k/uL RBC 2.02 L (3.80-5.40) m/uL Hgb 6.4 L* (11.4-16.0) gm/dL Hct 19.8 L* (34.0-46.0) % MCV 97.6 (80.0-100.0) fL MCH 31.6 (25.0-35.0) pg MCHC 32.4 (31.0-37.0) g/dL RDW 14.5 (11.5-15.5) % Plt Count 190 (150-450) k/uL MPV 8.1 Neutrophils % 82 % Lymphocytes % 12 % Monocytes % 4 % Eosinophils % 1 % Basophils % 1 % Neutrophils # 6.5 (1.3-7.7) k/uL Lymphocytes # 1.0 (1.0-4.8) k/uL Monocytes # 0.3 (0-1.0) k/uL Eosinophils # 0.1 (0-0.7) k/uL Basophils # 0.0 (0-0.2) k/uL Sodium 135 L (137-145) mmol/L Potassium 4.8 (3.5-5.1) mmol/L Chloride 106 (98-107) mmol/L Carbon Dioxide 23 (22-30) mmol/L Anion Gap 6 mmol/L BUN 76 H (7-17) mg/dL Creatinine 1.66 H (0.52-1.04) mg/dL Est GFR (CKD-EPI)AfAm 33 (>60 ml/min/1.73 sqM) Est GFR (CKD-EPI)NonAf 29 (>60 ml/min/1.73 sqM) Glucose 112 H (74-99) mg/dL Calcium 8.5 (8.4-10.2) mg/dL Magnesium 2.2 (1.6-2.3) mg/dL Total Bilirubin 0.2 (0.2-1.3) mg/dL AST 31 (14-36) U/L ALT 17 (4-34) U/L Alkaline Phosphatase 44 (38-126) U/L Troponin I <0.012 (0.000-0.034) ng/mL Total Protein 5.1 L (6.3-8.2) g/dL Albumin 3.1 L (3.5-5.0) g/dL Disposition Decision Date: 08/25/20 Decision Time: 15:54 <Ghassan Ricketts - Last Filed: 08/25/20 15:56> <Edin Mckeon - Last Filed: 08/25/20 15:57> Clinical Impression: Dehydration, Syncope and collapse, Symptomatic anemia, Chronic kidney disease Disposition: ADMITTED IP TO THIS HOSP Condition: Good Referrals: Kayden Trammell MD [Primary Care Provider] - 1-2 days
[2020-08-25 14:34] LABS: Albumin 3.1 g/dL (3.5-5.0); Calcium 8.5 mg/dL (8.4-10.2); Magnesium 2.2 mg/dL (1.6-2.3); Potassium 4.8 mmol/L (3.5-5.1); Total Bilirubin 0.2 mg/dL (0.2-1.3); Total Protein 5.1 g/dL (6.3-8.2)
--- NOTE | 2020-08-25 14:35 | XR ---
EXAMINATION TYPE: XR chest 2V DATE OF EXAM: 08/25/2020 COMPARISON: 08/03/2018 HISTORY: Syncope in 80 year-old female today. TECHNIQUE: Frontal and lateral views of the chest are obtained. FINDINGS: Overlying leads. Heart size is within normal limits. Atherosclerotic aortic knob. No focal consolidation, pneumothorax or pleural effusion. Degenerative changes of the thoracic spine and oste openia. There is a wedge compression fracture deformity of a midthoracic vertebral body which was not seen on a prior exam from 2019. IMPRESSION: 1. No acute pulmonary disease. 2. New wedge compression fracture deformity of a midthoracic vertebral body which was not seen on shaheed or exam. A CT or MRI may be helpful if clinically indicated with focal pain.
[2020-08-25 15:18] LABS: Basophils % (A) 1 %; Eosinophils # (A) 0.1 k/uL (0-0.7); Eosinophils % (A) 1 %; Lymphocytes % (A) 12 %; MCH 31.6 pg (25.0-35.0); MCHC 32.4 g/dL (31.0-37.0); MCV 97.6 fL (80.0-100.0); Mean Platelet Volume 8.1; Monocytes # (A) 0.3 k/uL (0-1.0); Monocytes % (A) 4 %; Neutrophils # (A) 6.5 k/uL (1.3-7.7); Neutrophils % (A) 82 %; Platelet Count 190 k/uL (150-450); RBC 2.02 m/uL (3.80-5.40); RDW 14.5 % (11.5-15.5); WBC 7.9 k/uL (3.8-10.6)
[2020-08-25 15:27] LABS: HGB 6.4 gm/dL (11.4-16.0)
[2020-08-25 15:28] LABS: HCT 19.8 % (34.0-46.0)
[2020-08-25 15:29] LABS: Prothrombin Time 10.5 sec (9.0-12.0)
[2020-08-25] MEDS ORDERED: NALOXONE 0.4 MG/ML 1 ML VIAL IV PRN (15:56)
[2020-08-25] MEDS ORDERED: ACETAMINOPHEN TAB 325 MG TAB PO PRN (15:56)
[2020-08-25 16:16] LABS: Appearance,Urine Clear (Clear); Bilirubin,Urine Negative (Negative); Blood,Urine Negative (Negative); Color,Urine Light Yellow; Glucose,Urine (UA) Negative (Negative); Ketones,Urine Negative (Negative); Leukocyte Esterase,Urine Negative (Negative); Nitrite,Urine Negative (Negative); Protein,Urine Negative (Negative); Specific Gravity,Urine 1.016 (1.001-1.035); Urobilinogen,Urine <2.0 mg/dL (<2.0)
--- NOTE | 2020-08-25 17:30 | P.HPIM ---
History of Present Illness H&P Date: 08/25/20 Chief Complaint: Syncope This is a 80-year-old female with past medical history noted below. Presented to the emergency room with a syncopal episode. Patient said that she was at the today when she started feeling dizzy and had to sit down and the next thing she remembered 1 of the bystanders trying to do CPR on her. According to the report, patient had a syncopal episode and one of the bystanders started CPR then she woke up and he had that him to stop. Patient herself denies any chest pain or shortness of breath. She said that she was feeling dehydrated today and did not drink much as usual. She never had problems with syncope in the past. She was evaluated in the ER and his hemoglobin was 6.4. Patient denies any GI bleed. No black stool or blood in stool. She said her last colonoscopy was approximately 5 years ago and was reported normal. She otherwise denies any history of anemia requiring blood transfusion. Patient is otherwise stable. She is known to have chronic kidney disease and follow-up closely with nephrology in the office. Review of Systems Review of system: 14 points review of systems were obtained and were negative except to what were mentioned in the HPI. Past Medical History Past Medical History: Hypertension, Renal Disease, Thyroid Disorder Additional Past Medical History / Comment(s): constipation, hx IBS, 29 % kidney function, History of Any Multi-Drug Resistant Organisms: None Reported Past Surgical History: Cholecystectomy, Hysterectomy Additional Past Surgical History / Comment(s): yovana cataracts Past Anesthesia/Blood Transfusion Reactions: No Reported Reaction Past Psychological History: No Psychological Hx Reported Smoking Status: Never smoker Past Alcohol Use History: None Reported Past Drug Use History: None Reported - Past Family History Father Family Medical History: Cancer Medications and Allergies Home Medications Medication Instructions Recorded Confirmed Type ALPRAZolam [Xanax] 0.25 mg PO HS 10/13/17 08/25/20 History Aspirin [Adult Low Dose Aspirin EC] 81 mg PO HS 10/13/17 08/25/20 History Docusate [Colace] 100 mg PO TID 10/13/17 08/25/20 History Levothyroxine Sodium [Synthroid] 75 mcg PO DAILY 10/13/17 08/25/20 History Verapamil HCl [Verapamil ER] 120 mg PO DAILY 10/13/17 08/25/20 History Citalopram Hydrobromide [CeleXA] 40 mg PO DAILY 08/25/20 08/25/20 History allopurinoL [Zyloprim] 100 mg PO DAILY@1200 08/25/20 08/25/20 History Allergies Allergy/AdvReac Type Severity Reaction Status Date / Time No Known Allergies Allergy Verified 08/25/20 16:18 Physical Exam Vitals: Vital Signs Pulse Resp BP Pulse Ox 08/25/20 16:27 81 18 133/54 97 08/25/20 13:03 81 18 125/68 97 Intake and Output 08/25/20 08/25/20 08/25/20 06:59 14:59 22:59 Other: Weight 49.895 kg General: The patient is awake and alert, in no distress Eye: there is normal conjunctiva bilaterally. Neck: The neck is supple, there is no JVD. Cardiovascular: Normal S1-S2, no S3-S4, no murmurs. Respiratory: Lungs clear to auscultation bilaterally Gastrointestinal: Abdomen is soft, nontender Musculoskeletal: There is no pedal edema. Neurological:. Speech is normal. Skin: Skin is warm and dry Results CBC & Chem 7: 08/25/20 14:40 08/25/20 14:11 Labs: Abnormal Lab Results - Last 24 Hours (Table) 08/25/20 08/25/20 08/25/20 Range/Units 14:11 14:40 14:40 RBC 2.02 L (3.80-5.40) m/uL Hgb 6.4 L* (11.4-16.0) gm/dL Hct 19.8 L* (34.0-46.0) % APTT 20.0 L (22.0-30.0) sec Sodium 135 L (137-145) mmol/L BUN 76 H (7-17) mg/dL Creatinine 1.66 H (0.52-1.04) mg/dL Glucose 112 H (74-99) mg/dL Total Protein 5.1 L (6.3-8.2) g/dL Albumin 3.1 L (3.5-5.0) g/dL Assessment and Plan Assessment: This is a 80-year-old female with past medical history noted below who presented to the emergency room with a syncopal episode. Patient was evaluated in the ER and will be admitted to the hospital for further evaluation of her medical problems noted below. 1. Syncopal episode, probably secondary to intravascular volume depletion and anemia. I would obtain echocardiogram and carotid Doppler to complete workup. We will continue telemetry monitoring. 2. Acute on chronic anemia, patient will be transfused 1 unit of PRBC for hemoglobin of 6.4. Obtain stool Hemoccult and consult GI for further evaluation. Also obtain iron profile, vitamin B12, and folate level 3. Acute kidney injury on Stage IIIB chronic kidney disease 4. Anemia of chronic disease 5. Chronic medical problems, hypothyroidism, hypertension, 6. DVT prophylaxis with SCDs
[2020-08-25] MEDS: SODIUM CHLORIDE 0.9% 1,000 ML IV SCH (18:51)
[2020-08-25] MEDS: ASPIRIN 81 MG PO SCH (21:05)
[2020-08-25] MEDS: ALPRAZolam 0.25 MG TAB PO SCH (21:05)
--- NOTE | 2020-08-25 21:48 | US ---
EXAMINATION TYPE: US carotid duplex BILAT DATE OF EXAM: 08/25/2020 COMPARISON: NONE CLINICAL HISTORY: Syncope. Syncope per order. Hx hypertension per patient. EXAM MEASUREMENTS: RIGHT: Peak Systolic Velocity (PSV) cm/sec ----- Right CCA: 87.7 ----- Right ICA: 99.0 ----- Right ECA: 82.8 ICA/CCA ratio: 1.1 RIGHT: End Diastole cm/sec ----- Right CCA: 18.3 ----- Right ICA: 48.9 ----- Right ECA: 9.1 LEFT: Peak Systolic Velocity (PSV) cm/sec ----- Left CCA: 80.6 ----- Left ICA: 103.9 ----- Left ECA: 103.9 ICA/CCA ratio: 1.3 LEFT: End Diastole cm/sec ----- Left CCA: 19.8 ----- Left ICA: 34.0 ----- Left ECA: 14.6 VERTEBRALS (direction of flow): Right Vertebral: Antegrade Left Vertebral: Antegrade Rhythm: Normal Intimal thickening seen bilaterally. No elevated velocities at this time. Limited visibility of right distal ICA. IMPRESSION: There is antegrade flow in the vertebral arteries. The images and measurements suggest less than 15% stenosis in both internal carotid arteries. Criteria for Assigning % of Stenosis / Diameter reduction (Estimation based on the indirect measurements of the internal carotid artery velocities (ICA PSV). 1. Normal (no stenosis)=ICA PSV < 125 cm/s: ratio < 2.0: ICA EDV<40 cm/s. 2. Less than 50% stenosis=ICA PSV < 125 cm/s: ratio < 2.0: ICA EDV<40 cm/s. 3. 50 to 69% stenosis=ICA PSV of 125 to 230 cm/s: ration 2.0 ? 4.0: ICA EDV 40-100 cm/s. 4. Greater than 70% stenosis to near occlusion= ICA PSV > 230 cm/s: ratio > 4.0: ICA EDV > 100 cm/s. 5. Near occlusion= ICA PSV velocities may be low or undetectable: variable ratio and ICA EDV. 6. Total occlusion=unable to detect flow.
[2020-08-26] MEDS: DOCUSATE 100 MG CAP PO SCH ×4 (00:52→20:54)
[2020-08-26] MEDS ORDERED: MORPHINE SULFATE 4 MG/ML SYRINGE IVP STA (01:23)
[2020-08-26] MEDS: MORPHINE SULFATE 4 MG/ML SYRINGE IVP PRN ×2 (05:40→11:00)
[2020-08-26 06:43] LABS: African American GFR (CKD) 52 (>60 ml/min/1.73 sqM); Anion Gap 5 mmol/L; Blood Urea Nitrogen 56 mg/dL (7-17); Calcium 8.6 mg/dL (8.4-10.2); Carbon Dioxide 21 mmol/L (22-30); Chloride 112 mmol/L (98-107); Glucose 85 mg/dL (74-99); Non-African American GFR(CKD) 45 (>60 ml/min/1.73 sqM); Potassium 4.3 mmol/L (3.5-5.1); Sodium 138 mmol/L (137-145)
[2020-08-26 06:47] LABS: % Iron Saturation 20.55 (12.00-45.00); Iron 52 ug/dL (50-170); Total Iron Binding Capacity 253 ug/dL (228-460)
[2020-08-26] MEDS: CITALOPRAM HYDROBROMIDE 20 MG TAB PO SCH (08:57)
[2020-08-26] MEDS: LEVOTHYROXINE 75 MCG TAB PO SCH (08:58)
[2020-08-26] MEDS: VERAPAMIL SR 120 MG TABLET.ER PO SCH (08:59)
[2020-08-26 09:33] LABS: Basophils # (A) 0.03 X 10*3/uL (0.00-0.10); Basophils % (A) 0.3 %; Eosinophils % (A) 1.1 %; HCT 25.6 % (37.2-46.3); HGB 8.5 g/dL (12.0-15.0); Lymphocytes # (A) 1.64 X 10*3/uL (0.90-5.00); Lymphocytes % (A) 18.6 %; MCHC 33.2 g/dL (32.0-37.0); MCV 93.4 fL (80.0-97.0); Mean Platelet Volume 11.6 fL (9.5-12.2); Neutrophils # (A) 6.21 X 10*3/uL (1.80-7.70); Neutrophils % (A) 70.3 %; Platelet Count 183 X 10*3/uL (140-440); RBC 2.74 X 10*6/uL (4.10-5.20); RDW 14.5 % (11.5-14.5); WBC 8.84 X 10*3/uL (4.50-10.00)
[2020-08-26] MEDS ORDERED: PANTOPRAZOLE 40 MG/10 ML VIAL IVP SCH (10:15)
[2020-08-26 10:42] LABS: Folate, Serum >24.0 ng/mL
--- NOTE | 2020-08-26 10:49 | P.PN ---
Subjective Progress Note Date: 08/26/20 Patient is doing well today. She does not have any complaints. Hemoglobin improved to 8.5. No acute events overnight. Objective - Vital Signs Vital signs: Vital Signs Temp 98.7 F 08/25/20 23:00 Pulse 86 08/26/20 09:45 Resp 18 08/26/20 09:45 BP 139/60 08/26/20 09:45 Pulse Ox 97 08/26/20 09:45 Intake & Output 08/25/20 08/26/20 08/26/20 18:59 06:59 18:59 Intake Total 310 Balance 310 Weight 49.895 kg Intake: Blood Product 310 Rc As-1 Unit 310 [id number] Other: # Bowel Movements 0 - Exam General: The patient is awake and alert, in no distress Eye: there is normal conjunctiva bilaterally. Neck: The neck is supple, there is no JVD. Cardiovascular: Normal S1-S2, no S3-S4, no murmurs. Respiratory: Lungs clear to auscultation bilaterally Gastrointestinal: Abdomen is soft, nontender Musculoskeletal: There is no pedal edema. Neurological:. Speech is normal. Skin: Skin is warm and dry - Labs CBC & Chem 7: 08/26/20 06:00 08/26/20 06:00 Labs: Abnormal Lab Results - Last 24 Hours (Table) 08/25/20 08/25/20 08/25/20 Range/Units 14:11 14:40 14:40 RBC 2.02 L (3.80-5.40) m/uL Hgb 6.4 L* (11.4-16.0) gm/dL Hct 19.8 L* (34.0-46.0) % Absolute Nucleated RBC (0.00-0.00) X 10*3/uL Immature Gran # (0.00-0.04) X 10*3/uL NRBC/100 WBC Diff (0.0-0.0) /100 WBCS APTT 20.0 L (22.0-30.0) sec Sodium 135 L (137-145) mmol/L Chloride (98-107) mmol/L Carbon Dioxide (22-30) mmol/L BUN 76 H (7-17) mg/dL Creatinine 1.66 H (0.52-1.04) mg/dL Glucose 112 H (74-99) mg/dL Total Protein 5.1 L (6.3-8.2) g/dL Albumin 3.1 L (3.5-5.0) g/dL Crossmatch 08/25/20 08/26/20 08/26/20 Range/Units 16:20 06:00 06:00 RBC 2.74 L (3.80-5.40) m/uL Hgb 8.5 L (11.4-16.0) gm/dL Hct 25.6 L (34.0-46.0) % Absolute Nucleated RBC 0.02 H (0.00-0.00) X 10*3/uL Immature Gran # 0.06 H (0.00-0.04) X 10*3/uL NRBC/100 WBC Diff 0.2 H (0.0-0.0) /100 WBCS APTT (22.0-30.0) sec Sodium (137-145) mmol/L Chloride 112 H (98-107) mmol/L Carbon Dioxide 21 L (22-30) mmol/L BUN 56 H (7-17) mg/dL Creatinine 1.16 H (0.52-1.04) mg/dL Glucose (74-99) mg/dL Total Protein (6.3-8.2) g/dL Albumin (3.5-5.0) g/dL Crossmatch See Detail Assessment and Plan Assessment: This is a 80-year-old female with past medical history noted below who presented to the emergency room with a syncopal episode. Patient was evaluated in the ER and will be admitted to the hospital for further evaluation of her medical problems noted below. 1. Syncopal episode, secondary to intravascular volume depletion and anemia. Carotid Doppler showed no hemodynamically significant stenosis. I would obtain echocardiogram to complete workup. No events on property assessment monitor. 2. Acute on chronic anemia, patient transfused 1 unit of PRBC for hemoglobin of 6.4. Obtain stool Hemoccult and consult GI for further evaluation. iron profile, vitamin B12, and folate level within acceptable range 3. Acute kidney injury on Stage IIIB chronic kidney disease: Creatinine improved with IV fluid hydration 4. Anemia of chronic disease 5. Chronic medical problems, hypothyroidism, hypertension, 6. DVT prophylaxis with SCDs Plan for endoscopic evaluation with GI tomorrow.
[2020-08-26] MEDS: PANTOPRAZOLE 40 MG/10 ML VIAL IVP SCH ×2 (11:02→20:54)
[2020-08-26] MEDS: allopurinoL 100 MG TAB PO SCH (11:02)
--- NOTE | 2020-08-26 11:42 | ECHOF ---
Referral Reason:Syncope MEASUREMENTS -------- HEIGHT: 152.4 cm WEIGHT: 49.9 kg BP: 148/69 IVSd: 1.1 cm (0.6 - 1.1) LVIDd: 3.9 cm (3.9 - 5.3) LVPWd: 1.2 cm (0.6 - 1.1) IVSs: 1.1 cm LVIDs: 2.7 cm LVPWs: 1.1 cm LAESV Index (A-L): 31.18 ml/m Ao Diam: 2.7 cm (2.0 - 3.7) AV Cusp: 1.4 cm (1.5 - 2.6) LA Diam: 2.8 cm (2.7 - 3.8) MV EXCURSION: 18.829 mm (> 18.000) MV EF SLOPE: 88 mm/s (70 - 150) EPSS: 1.9 cm MV E Ramon: 1.34 m/s MV DecT: 199 ms MV A Ramon: 1.54 m/s MV E/A Ratio: 0.87 RAP: 5.00 mmHg RVSP: 25.35 mmHg FINDINGS -------- This was a technically good study. The left ventricular size is normal. There is borderline concentric left ventricular hypertrophy. Overall left ventricular systolic function is normal with, an EF between 55 - 60 %. The right ventricle is normal in size. LA is midly dilated 29-33ml/m2. The right atrial size is normal. Interatrial and interventricular septum intact. The aortic valve is trileaflet and appears structurally normal. Trace amount of aortic regurgitatio n. The mitral valve is normal. The mitral valve leaflets are mildly thickened. Mild mitral annular c alcification present. There is trace mitral regurgitation. The tricuspid valve appears structurally normal. Mild tricuspid regurgitation present. Right vent ricular systolic pressure is normal at < 35 mmHg. There is no pulmonic regurgitation present. The aortic root size is normal. Normal inferior vena cava with normal inspiratory collapse consistent with estimated right atrial pre ssure of 5 mmHg. There is no pericardial effusion. CONCLUSIONS -------- 1. The left ventricular size is normal. 2. There is borderline concentric left ventricular hypertrophy. 3. Overall left ventricular systolic function is normal with, an EF between 55 - 60 %. 4. LA is midly dilated 29-33ml/m2. 5. Trace amount of aortic regurgitation. 6. The mitral valve leaflets are mildly thickened. 7. Mild mitral annular calcification present. 8. There is trace mitral regurgitation. 9. Mild tricuspid regurgitation present. 10. There is no pericardial effusion. JAVA DEVELOPER ANALYST: Alysha Null RDCS
[2020-08-26] MEDS: SODIUM CHLORIDE 0.9% 1,000 ML IV SCH (12:43)
--- NOTE | 2020-08-26 13:40 | P.CONS ---
History of Present Illness - Reason for Consult Consult date: 08/26/20 Symptomatic anemia Requesting physician: Genesis Glynn - Chief Complaint Syncope and collapse - History of Present Illness Supplements an 80-year-old white female who presented to the emergency department with after experiencing an episode of syncope and passing out while at [employer]. She has a past medical history including IBS, anxiety, hypertension, chronic kidney disease, and anemia. states she has been feeling weak all care, she has been taking care of her 83-year-old with dementia by herself. On admission she was noted to have a hemoglobin of 6.4. Iron studies were obtained and were normal. She reports prior history of anemia, not currently taking any iron. Baseline normally in the 9 range. She has been on steroids for sciatic pain, denies use of NSAIDs only Tylenol. She does have a history of acid reflux and takes Pepcid, denies any previous history of ulcer. Denies any abdominal pain, nausea, or vomiting. Denies any black tarry stools or blood in her stool, no blood in her urine. States she has irregular bowel movements. She had a previous screening colonoscopy in September [address] Medina which was normal, previous to that in 2010 which was significant for polyps. He is status post 1 unit of PRBC transfusion with a hemoglobin of 8.5. Today's labs WBC 8.8, hemoglobin 8.5, hematocrit 25.6, platelet count 183,000, INR 1.0, total bilirubin 0.2, alkaline phosphatase 44, AST 31, ALT 17. Review of Systems REVIEW OF SYSTEMS: CARDIOPULMONARY: No chest pain. Short of breath and weakness for the last year. Gastrointestinal: No abdominal pain. No nausea or vomiting. No hematemesis, coffee-ground emesis. No rectal bleeding, or melena. Irregular bowel movements. GENITOURINARY: No dysuria or hematuria. MUSCULOSKELETAL: Reports normal range of motion., Joint pain. SKIN: No rashes. No jaundice. ENDOCRINE: No chills, fevers. No excessive weight gain or loss. No polydipsia or polyuria. PSYCHIATRIC: Unremarkable. NEUROLOGY: No change in mental status. Had dizziness, syncopal episode and collapse. ENT: Vision unremarkable. CONSTITUTIONAL: No recent weight loss. No fever, chills, night sweats. Past Medical History Past Medical History: Hypertension, Renal Disease, Thyroid Disorder Additional Past Medical History / Comment(s): constipation, hx IBS, 29 % kidney function, History of Any Multi-Drug Resistant Organisms: None Reported Past Surgical History: Cholecystectomy, Hysterectomy Additional Past Surgical History / Comment(s): yovana cataracts Past Anesthesia/Blood Transfusion Reactions: No Reported Reaction Past Psychological History: No Psychological Hx Reported Smoking Status: Never smoker Past Alcohol Use History: None Reported Past Drug Use History: None Reported - Past Family History Father Family Medical History: Cancer Medications and Allergies Home Medications Medication Instructions Recorded Confirmed Type ALPRAZolam [Xanax] 0.25 mg PO HS 10/13/17 08/25/20 History Aspirin [Adult Low Dose Aspirin EC] 81 mg PO HS 10/13/17 08/25/20 History Docusate [Colace] 100 mg PO TID 10/13/17 08/25/20 History Levothyroxine Sodium [Synthroid] 75 mcg PO DAILY 10/13/17 08/25/20 History Verapamil HCl [Verapamil ER] 120 mg PO DAILY 10/13/17 08/25/20 History Citalopram Hydrobromide [CeleXA] 40 mg PO DAILY 08/25/20 08/25/20 History allopurinoL [Zyloprim] 100 mg PO DAILY@1200 08/25/20 08/25/20 History Allergies Allergy/AdvReac Type Severity Reaction Status Date / Time No Known Allergies Allergy Verified 08/25/20 16:18 Physical Exam Vitals: Vital Signs Temp Pulse Pulse Resp BP BP Pulse Ox 08/26/20 12:18 98.3 F 83 17 136/69 97 08/26/20 12:02 97.9 F 81 125/62 96 08/26/20 09:45 86 18 139/60 97 08/26/20 08:00 84 177/70 96 08/26/20 05:44 92 16 148/69 97 08/25/20 23:00 98.7 F 81 16 163/80 97 08/25/20 21:10 98.8 F 72 16 153/68 97 08/25/20 21:03 90 16 146/75 96 08/25/20 20:40 98.8 F 90 16 137/66 98 08/25/20 20:30 99.3 F 87 16 142/65 98 08/25/20 18:56 92 18 141/66 97 08/25/20 17:43 77 18 132/63 98 08/25/20 16:27 81 18 133/54 97 08/25/20 13:03 81 18 125/68 97 Intake and Output 08/25/20 08/26/20 08/26/20 22:59 06:59 14:59 Intake Total 310 Balance 310 Intake: Blood Product 310 Rc As-1 Unit 310 [id number] Other: # Bowel Movements 0 Weight 49.895 kg General appearance: The patient is alert, oriented, appears in no acute distress. HET: Head is normocephalic and atraumatic. Conjunctiva pink. Sclera anicteric. Neck: Supple without lymphadenopathy. Trachea midline. Heart: S1 S2. Regular rate and rhythm. Lungs: Clear to auscultation. Abdomen: Soft, nontender, nondistended with bowel sounds. No guarding or rig idity. Skin: No rashes. No jaundice. Extremities: Normal skin color and turgor. No pedal edema. Neurological: No focal deficits. Alert and oriented 3.. Results CBC & Chem 7: 08/26/20 06:00 08/26/20 06:00 Labs: Abnormal Lab Results - Last 24 Hours (Table) 08/25/20 08/25/20 08/25/20 Range/Units 14:11 14:40 14:40 RBC 2.02 L (3.80-5.40) m/uL Hgb 6.4 L* (11.4-16.0) gm/dL Hct 19.8 L* (34.0-46.0) % Absolute Nucleated RBC (0.00-0.00) X 10*3/uL Immature Gran # (0.00-0.04) X 10*3/uL NRBC/100 WBC Diff (0.0-0.0) /100 WBCS APTT 20.0 L (22.0-30.0) sec Sodium 135 L (137-145) mmol/L Chloride (98-107) mmol/L Carbon Dioxide (22-30) mmol/L BUN 76 H (7-17) mg/dL Creatinine 1.66 H (0.52-1.04) mg/dL Glucose 112 H (74-99) mg/dL Total Protein 5.1 L (6.3-8.2) g/dL Albumin 3.1 L (3.5-5.0) g/dL Crossmatch 08/25/20 08/26/20 08/26/20 Range/Units 16:20 06:00 06:00 RBC 2.74 L (3.80-5.40) m/uL Hgb 8.5 L (11.4-16.0) gm/dL Hct 25.6 L (34.0-46.0) % Absolute Nucleated RBC 0.02 H (0.00-0.00) X 10*3/uL Immature Gran # 0.06 H (0.00-0.04) X 10*3/uL NRBC/100 WBC Diff 0.2 H (0.0-0.0) /100 WBCS APTT (22.0-30.0) sec Sodium (137-145) mmol/L Chloride 112 H (98-107) mmol/L Carbon Dioxide 21 L (22-30) mmol/L BUN 56 H (7-17) mg/dL Creatinine 1.16 H (0.52-1.04) mg/dL Glucose (74-99) mg/dL Total Protein (6.3-8.2) g/dL Albumin (3.5-5.0) g/dL Crossmatch See Detail Comments: Carotid ultrasound shows no significant internal carotid artery stenosis. Echocardiogram EF 55-60% Assessment and Plan (1) Symptomatic anemia Narrative/Plan: 80-year-old female presented to the emergency department after experiencing syncope and passing out at [employer]. Patient has previous history of anemia with a baseline around 9, patient was found to have a hemoglobin of 6.4 on admission and was given 1 unit PRBC transfusion. She has been feeling weak and tired with shortness of breath for the past year. She denies any signs or symptoms of GI bleed. She reports no black stools or blood in her stool. No abdominal pain, nausea, or vomiting. She does have a history of acid reflux for which he takes Pepcid. She has been on steroids for sciatic pain, denies any anticoagulation or NSAID use. She does take a baby aspirin daily. She denies any previous history of GI bleed. She states she had an EGD many years ago, last colonoscopy in 2018 which was for screening purposes and was normal. Prior to that she had a colonoscopy in 2010 significant for polyps. She does have a history of chronic kidney disease, anemia is normochromic, normocytic. Iron studies ordered pre-transfusion. Possible etiologies are anemia of chronic disease, however with patient's previous history of GERD and recent steroid use, peptic ulcer disease needs to be considered. Patient will proceed with EGD tomorrow. Current Visit: Yes Status: Acute Code(s): D64.9 - ANEMIA, UNSPECIFIED SNOMED Code(s): 435506880 (2) Chronic kidney disease Current Visit: Yes Status: Acute Code(s): N18.9 - CHRONIC KIDNEY DISEASE, UNSPECIFIED SNOMED Code(s): 951323138 (3) Syncope and collapse Current Visit: Yes Status: Acute Code(s): R55 - SYNCOPE AND COLLAPSE SNOMED Code(s): 607730133 Plan: 1. Clear liquid diet, nothing by mouth after midnight 2. Daily CBC transfuse for hemoglobin less than 7 3. Iron studies reviewed 4. Reticulocyte count ordered 5. Protonix 40 mg daily 6. Avoid NSAIDs 7. Will proceed with EGD tomorrow, procedure discussed in detail with patient including benefits and risks, patient is willing to proceed. Thank you for this consultation, we will continue to follow. Dr. Banks I agree with the dictator's note, documented as a scribe by Modesta Carrasquillo.
[2020-08-26 14:58] LABS: Reticulocyte % 1.92 % (0.10-1.80)
[2020-08-26] MEDS: ALPRAZolam 0.25 MG TAB PO SCH (20:54)
[2020-08-26] MEDS: ASPIRIN 81 MG PO SCH (20:56)
[2020-08-27] MEDS: LEVOTHYROXINE 75 MCG TAB PO SCH (05:45)
[2020-08-27] MEDS: PANTOPRAZOLE 40 MG/10 ML VIAL IVP SCH (07:27)
[2020-08-27] MEDS: DOCUSATE 100 MG CAP PO SCH (07:27)
[2020-08-27] MEDS: allopurinoL 100 MG TAB PO SCH (07:27)
[2020-08-27] MEDS: CITALOPRAM HYDROBROMIDE 20 MG TAB PO SCH (07:27)
[2020-08-27] MEDS: VERAPAMIL SR 120 MG TABLET.ER PO SCH (07:27)
[2020-08-27] MEDS: SODIUM CHLORIDE 0.9% 1,000 ML IV SCH (07:28)
[2020-08-27 11:35] LABS: Basophils # (A) 0.03 X 10*3/uL (0.00-0.10); Basophils % (A) 0.4 %; Eosinophils # (A) 0.25 X 10*3/uL (0.04-0.35); Eosinophils % (A) 3.4 %; HCT 23.9 % (37.2-46.3); HGB 7.8 g/dL (12.0-15.0); Lymphocytes # (A) 1.37 X 10*3/uL (0.90-5.00); Lymphocytes % (A) 18.6 %; MCH 31.2 pg (27.0-32.0); MCHC 32.6 g/dL (32.0-37.0); MCV 95.6 fL (80.0-97.0); Mean Platelet Volume 11.1 fL (9.5-12.2); Monocytes # (A) 0.53 X 10*3/uL (0.20-1.00); Monocytes % (A) 7.2 %; Neutrophils # (A) 5.16 X 10*3/uL (1.80-7.70); Neutrophils % (A) 69.9 %; Platelet Count 171 X 10*3/uL (140-440); RDW 14.4 % (11.5-14.5); WBC 7.38 X 10*3/uL (4.50-10.00)
[2020-08-27] MEDS ORDERED: PROPOFOL 10 MG/ML 20 ML VIAL IV ONE (11:39)
[2020-08-27] MEDS ORDERED: LIDOCAINE 1% INJ 10MG/ML (20 ML MDV) ONE (11:39)
[2020-08-27] MEDS ORDERED: IV FLUID CONTINUATION 1,000 ML IV ONE (11:40)
--- NOTE | 2020-08-27 11:57 | P.PCN ---
Date of Procedure: 08/27/20 Description of Procedure: BRIEF HISTORY: 80-year-old white female who presented to the emergency department with after experiencing an episode of syncope and passing out while at [employer]. She has a past medical history including IBS, anxiety, hypertension, chronic kidney disease, and anemia. states she has been feeling weak all care, she has been taking care of her 83-year-old with dementia by herself. On admission she was noted to have a hemoglobin of 6.4. Iron studies were obtained and were normal. She reports prior history of anemia, not currently taking any iron. Baseline normally in the 9 range. She has been on steroids for sciatic pain, denies use of NSAIDs only Tylenol. She does have a history of acid reflux and takes Pepcid, denies any previous history of ulcer. Denies any abdominal pain, nausea, or vomiting. Denies any black tarry stools or blood in her stool, no blood in her urine. States she has irregular bowel movements. She had a previous screening colonoscopy in September [address] Medina which was normal, previous to that in 2010 which was significant for polyps. He is status post 1 unit of PRBC transfusion. PROCEDURE PERFORMED: Esophagogastroduodenoscopy with biopsy . PREOPERATIVE DIAGNOSIS: Anemia. ESTIMATED BLOOD LOSS: Minimal. IV sedation per anesthesia. PROCEDURE: After informed consent was obtained, the patient was brought into the endoscopy unit. IV sedation was administered by Anesthesia under continuous monitoring. Initially the Olympus GIF-190 video endoscope was inserted into the mouth. Esophagus intubated without any difficulty. It was gradually advanced into the stomach and duodenum and carefully examined. The bulb and the second part of the duodenumwas significant for 2 cratered ulcers in the duodenum measuring 1 cm in size and 5 mm in size with biopsies of the duodenal ulcers taken as well as the duodenum. The scope at this time was withdrawn to the stomach, adequately insufflated with air, and upon careful examination, mucosa of the antrum, body, cardia and the fundus appeared normal except for a small linear ulcer in the antrum which was biopsied as well as biopsies of the antrum and body. The scope was then withdrawn into the esophagus. The GE junction was located at 35 cm from the incisors, With a small 1 cm hiatal hernia noted . The esophagus appeared normal. There were no erosions or ulcerations seen and the patient tolerated the procedure well. IMPRESSION: 1. 2 cratered duodenal ulcers without active bleeding or stigmata for bleeding. 2. Small linear antral ulcer. 3. Small hiatal hernia. 4. Biopsies of the duodenum, duodenal ulcer, antral ulcer, and antrum and body. RECOMMENDATIONS: The findings of this examination were discussed with the patient. Okay to resume diet. Okay to resume medications. Await pathology from biopsies. Patient should remain on Protonix 40 mg twice daily and follow-up after discharge with consideration for repeat EGD in 2 months to check for ulcer healing. Strict avoidance of NSAID therapy. Continue to monitor hemoglobin and hematocrit and transfuse as needed. Okay for diet.
--- NOTE | 2020-08-27 13:59 | P.DS ---
Providers Date of admission: 08/25/20 15:58 Expected date of discharge: 08/27/20 Attending physician: Genesis Glynn Consults: 08/25/20 17:22 Consult Physician Routine Consulting Provider: Darlene Barnard Consult Reason/Comments: Anemia Do you want consulting provider notified?: Yes Primary care physician: [facility] Course: This is a 80-year-old female with past medical history noted below who presented to the emergency room with a syncopal episode. Patient was evaluated in the ER and will be admitted to the hospital for further evaluation of her medical problems noted below. 1. Syncopal episode, secondary to intravascular volume depletion and anemia. Carotid Doppler showed no hemodynamically significant stenosis. Echocardiogram showed preserved ejection fraction with no significant valvular abnormality. No events on quality assurance monitor body. 2. Acute on chronic anemia, patient transfused 1 unit of PRBC for hemoglobin of 6.4. Hemoglobin stabilized around 7.5. iron profile, vitamin B12, and folate level within acceptable range 3. Acute kidney injury on Stage IIIB chronic kidney disease: Creatinine improved with IV fluid hydration 4. Anemia of chronic disease 5. Chronic medical problems, hypothyroidism, hypertension, Patient was seen, examined, and evaluated by me on the day of discharge. She was seen and evaluated by GI during this admission. She underwent EGD showing small duodenal ulcers without active bleeding or stigmata for bleeding. Biopsies obtained. She will continue Protonix 40 mg twice daily and follow-up with GI in the office for biopsy results in the next 3-4 weeks. Home dose of aspirin will be held as well as patient does not have significant history of coronary artery disease. She will follow-up with her PCP as directed in the office next week for repeat CBC. Physical exam: General: The patient is awake and alert, in no distress Eye: there is normal conjunctiva bilaterally. Neck: The neck is supple, there is no JVD. Cardiovascular: Normal S1-S2, no S3-S4, no murmurs. Respiratory: Lungs clear to auscultation bilaterally Gastrointestinal: Abdomen is soft, nontender Musculoskeletal: There is no pedal edema. Neurological:. Speech is normal. Skin: Skin is warm and dry Patient will be discharged home in a stable condition. For further details about this hospitalization please refer to the electronic chart. Time spent on discharge > 30 minutes including counseling and coordination of care Patient Condition at Discharge: Stable Plan - Discharge Summary Discharge Rx Participant: Yes New Discharge Prescriptions: New Pantoprazole Sodium [Protonix] 40 mg PO BID #60 tablet. Ferrous Sulfate [Feosol] 325 mg PO DAILY #30 tab Continue Docusate [Colace] 100 mg PO TID ALPRAZolam [Xanax] 0.25 mg PO HS Verapamil HCl [Verapamil ER] 120 mg PO DAILY Levothyroxine Sodium [Synthroid] 75 mcg PO DAILY allopurinoL [Zyloprim] 100 mg PO DAILY@1200 Citalopram Hydrobromide [CeleXA] 40 mg PO DAILY Discontinued Aspirin [Adult Low Dose Aspirin EC] 81 mg PO HS Discharge Medication List ALPRAZolam [Xanax] 0.25 mg PO HS 10/13/17 [History] Docusate [Colace] 100 mg PO TID 10/13/17 [History] Levothyroxine Sodium [Synthroid] 75 mcg PO DAILY 10/13/17 [History] Verapamil HCl [Verapamil ER] 120 mg PO DAILY 10/13/17 [History] Citalopram Hydrobromide [CeleXA] 40 mg PO DAILY 08/25/20 [History] allopurinoL [Zyloprim] 100 mg PO DAILY@1200 08/25/20 [History] Ferrous Sulfate [Feosol] 325 mg PO DAILY #30 tab 08/27/20 [Rx] Pantoprazole Sodium [Protonix] 40 mg PO BID #60 tablet. 08/27/20 [Rx] Follow up Appointment(s)/Referral(s): Kayden Trammell MD [Primary Care Provider] - 1-2 days Cristian Banks MD [STAFF PHYSICIAN] - 3 Weeks Discharge Disposition: HOME SELF-CARE
[2020-08-27 14:50] VITALS: BP 160/74; PULSE 72; RESP 18; TEMP 97.8
== END 2020-08-27 15:40 | disposition home or self-care (01) | DRG 312 ==
LOC: EC 13:01 → 4SSUR 15:58
PROVIDERS: ADMIT Internal Medicine; ATTEND Internal Medicine
PROC: 30233N1 Transfusion of Nonautologous Red Blood Cells into Peripheral Vein, Percutaneous Approach (ICD-10-PCS; 2020-08-25)
PROC: 0DB78ZX Excision of Stomach, Pylorus, Via Natural or Artificial Opening Endoscopic, Diagnostic (ICD-10-PCS; 2020-08-27)
PROC: 0DB98ZX Excision of Duodenum, Via Natural or Artificial Opening Endoscopic, Diagnostic (ICD-10-PCS; 2020-08-27)
PROC: 0DB68ZX Excision of Stomach, Via Natural or Artificial Opening Endoscopic, Diagnostic (ICD-10-PCS; principal; 2020-08-27 13:15)
DX: R55 Syncope and collapse (principal); N17.9 Acute kidney failure, unspecified; K21.9 Gastro-esophageal reflux disease without esophagitis; K58.9 Irritable bowel syndrome, unspecified; F41.9 Anxiety disorder, unspecified; D63.8 Anemia in other chronic diseases classified elsewhere; E03.9 Hypothyroidism, unspecified; E86.0 Dehydration; I12.9 Hypertensive chronic kidney disease with stage 1 through stage 4 chronic kidney disease, or unspecified chronic kidney disease; K25.9 Gastric ulcer, unspecified as acute or chronic, without hemorrhage or perforation; K26.9 Duodenal ulcer, unspecified as acute or chronic, without hemorrhage or perforation; K44.9 Diaphragmatic hernia without obstruction or gangrene; M54.40 Lumbago with sciatica, unspecified side; M85.80 Other specified disorders of bone density and structure, unspecified site; N18.32 Chronic kidney disease, stage 3b; Z79.82 Long term (current) use of aspirin; Z79.890 Hormone replacement therapy; Z79.899 Other long term (current) drug therapy; Z90.710 Acquired absence of both cervix and uterus
CPT/HCPCS: 36415; 43239; 71046; 80048; 80053; 81003; 82607; 82746; 83540; 83550; 83735; 84484; 85025; 85045; 85610; 85730; 86850; 86900; 86901; 86920; 88305; 88342; 93005; 93306; 93880; 96360; 96361; 99285

== ENCOUNTER → 2020-10-30 | Outpatient (CLI) | payer MEDICARE ==
--- NOTE | 2020-10-30 16:36 | US ---
EXAMINATION TYPE: US kidneys/renal and bladder DATE OF EXAM: 10/30/2020 COMPARISON: Prior renal ultrasound December 27, 2018 CLINICAL HISTORY: N18.32 Chronic kidney disease,. CKD EXAM MEASUREMENTS: Right Kidney: 8.4 x 3.3 x 3.5 cm Left Kidney: 9.1 x 3.6 x 4.2 cm Right Kidney: atrophic, thin renal cortex, dilated collecting system Left Kidney: appears wnl Bladder: wnl Bilateral Jets seen: yes There is no evidence for hydronephrosis at this point in time. Right side shows increased cortical ec hogenicity cortical thinning. No nephrolithiasis is seen. No masses are identified. The urinary kaya dder is satisfactorily distended. Bilateral ureteral jets are seen. IMPRESSION: Evidence of chronic medical renal disease redemonstrated. No hydronephrosis seen qi gonzalez.
== END | disposition home or self-care (01) ==
LOC: RADUSWWP 15:33
PROVIDERS: ATTEND Internal Medicine Nephrology
DX: N18.32 Chronic kidney disease, stage 3b (principal)
CPT/HCPCS: 76770

== ENCOUNTER 2020-11-11 07:25 | Day surgery (SDC) | payer MEDICARE ==
[2020-11-09 10:30] VITALS: BMI 20.7
[~2020-11-11 07:25] MED LIST changes: -LIDOCAINE 1% 20 ML VIAL (10MG/ML) FOR IV START INTRADERMA PRN
[2020-11-11 08:12] VITALS: RESP 16; TEMP 97.9
[2020-11-11] MEDS ORDERED: LIDOCAINE 1% (10MG/ML) FOR IV START INTRADERMA ONE (08:24)
[2020-11-11] MEDS ORDERED: LIDOCAINE 1% INJ 10MG/ML (20 ML MDV) ONE (08:32)
[2020-11-11] MEDS ORDERED: PROPOFOL 10 MG/ML 20 ML VIAL IV ONE (08:32)
--- NOTE | 2020-11-11 08:40 | P.PCN ---
Date of Procedure: 11/11/20 Procedure(s) Performed: BRIEF HISTORY: Patient is a 80-year-old, pleasant, white female scheduled for an upper endoscopy as a part of follow-up of gastric and duodenal ulcers noted on an upper endoscopy done in August 2020 for evaluation of acute GI bleed. She was noted to have a gastric ulcer in 2 large duodenal ulcers. Patient presently on Protonix 40 mg daily and remains asymptomatic. PROCEDURE PERFORMED: Esophagogastroduodenoscopy. PREOPERATIVE DIAGNOSIS: Follow-up of gastric and duodenal ulcers. IV sedation per anesthesia. PROCEDURE: After informed consent was obtained, the patient was brought into the endoscopy unit. IV sedation was administered by Anesthesia under continuous monitoring. Initially the Olympus GIF-140 video endoscope was inserted into the mouth. Esophagus intubated without any difficulty. It was gradually advanced into the stomach and duodenum and carefully examined. The bulb and the second part of the duodenum appeared normal. The scope at this time was withdrawn to the stomach, adequately insufflated with air, and upon careful examination, mucosa of the antrum, body, cardia and the fundus appeared normal. Previously noted antral and duodenal ulcers have completely healed. The scope was then withdrawn into the esophagus. The GE junction was located at 39 cm from the incisors. A small sliding type hiatal hernia noted. The esophagus appeared normal. There were no erosions or ulcerations seen and the patient tolerated the procedure well. IMPRESSION: 1. Completely healed gastric and duodenal ulcers. 2. Small sliding type hiatal hernia. RECOMMENDATIONS: The findings of this examination were discussed with the patient as well as a family. She was advised to stop Protonix at this time. Avoid NSAIDs. Follow up in office as needed.
[2020-11-11 08:45] VITALS: PULSE 67
[2020-11-11 08:59] VITALS: BP 119/63
== END 2020-11-11 09:15 | disposition home or self-care (01) ==
LOC: ORWHC2ENDO 07:25
PROVIDERS: ATTEND Internal Medicine Gastroenterology
DX: K25.9 Gastric ulcer, unspecified as acute or chronic, without hemorrhage or perforation (principal); K26.9 Duodenal ulcer, unspecified as acute or chronic, without hemorrhage or perforation; K44.9 Diaphragmatic hernia without obstruction or gangrene; I10 Essential (primary) hypertension; N28.9 Disorder of kidney and ureter, unspecified; F41.8 Other specified anxiety disorders; E07.9 Disorder of thyroid, unspecified; Z79.890 Hormone replacement therapy; Z79.899 Other long term (current) drug therapy
CPT/HCPCS: 43235; J2001; J2704

== ENCOUNTER → 2021-06-28 | Outpatient (CLI) | payer MEDICARE ==
--- NOTE | 2021-06-28 10:43 | XR ---
EXAMINATION TYPE: XR chest 1V DATE OF EXAM: 06/28/2021 COMPARISON: Chest x-ray August 25, 2020 HISTORY: Chronic upper back pain and shortness of breath TECHNIQUE: Single frontal view of the chest is obtained. FINDINGS: There is chronic parenchymal change without suspicious new focal air space opacity, pleura l effusion, or pneumothorax seen. The cardiac silhouette size remains within normal limits. Cholecys tectomy clips are noted. Osseous structures are demineralized with underlying scoliosis redemonstrate d. IMPRESSION: Chronic changes without acute pulmonary process.
== END | disposition home or self-care (01) ==
LOC: RADXRWHC 10:18
PROVIDERS: ATTEND Nurse Practitioner Family
DX: R06.02 Shortness of breath (principal); M54.6 Pain in thoracic spine; G89.29 Other chronic pain
CPT/HCPCS: 71045

== ENCOUNTER 2021-06-30 10:21 | Observation (INO) | payer MEDICARE ==
--- NOTE | 2021-06-30 10:51 | ED ---
Recheck HPI - General Chief Complaint: Recheck/Abnormal Lab/Rx Stated Complaint: Dehydration Time Seen by Provider: 06/30/21 10:35 Source: patient, RN notes reviewed Mode of arrival: wheelchair Limitations: no limitations - History of Present Illness Initial Comments: -year-old female presents with complaints of feeling weak and dehydrated she had lab work done yesterday at an outpatient clinic and apparently was found have low sodium as well as evidence of dehydration. She did call her physician who did refer her to the emergency department for evaluation. She denies any chest pain shortness breath fevers chills sweats no nausea vomiting this decreased oral intake. No headaches no focal deficits. - Related Data Home Medications Medication Instructions Recorded Confirmed ALPRAZolam [Xanax] 0.25 mg PO HS 10/13/17 06/30/21 Levothyroxine Sodium [Synthroid] 75 mcg PO AC-BRKFST 10/13/17 06/30/21 Verapamil HCl [Verapamil ER] 120 mg PO W/BRKFST 10/13/17 06/30/21 Citalopram Hydrobromide [CeleXA] 40 mg PO W/BRKFST 08/25/20 06/30/21 allopurinoL [Zyloprim] 100 mg PO DAILY@1200 08/25/20 06/30/21 Ferrous Sulfate [Feosol] 325 mg PO W/BRKFST 06/30/21 06/30/21 Allergies Allergy/AdvReac Type Severity Reaction Status Date / Time No Known Allergies Allergy Verified 06/30/21 12:25 Review of Systems ROS Statement: Those systems with pertinent positive or pertinent negative responses have been documented in the HPI. ROS Other: All systems not noted in ROS Statement are negative. Past Medical History Past Medical History: Hypertension, Renal Disease, Thyroid Disorder Additional Past Medical History / Comment(s): constipation, hx IBS, 29 % kidney function, History of Any Multi-Drug Resistant Organisms: None Reported Past Surgical History: Cholecystectomy, Hysterectomy Additional Past Surgical History / Comment(s): yovana cataracts Past Anesthesia/Blood Transfusion Reactions: No Reported Reaction Past Psychological History: No Psychological Hx Reported Smoking Status: Never smoker Past Alcohol Use History: None Reported Past Drug Use History: None Reported - Past Family History Father Family Medical History: Cancer General Exam - General Exam Comments Initial Comments: This is a well-developed well-nourished awake alert oriented 3 female Limitations: no limitations General appearance: alert, in no apparent distress Head exam: Present: atraumatic, normocephalic, normal inspection Eye exam: Present: normal appearance, PERRL, EOMI. Absent: scleral icterus, conjunctival injection, periorbital swelling ENT exam: Present: mucous membranes dry Neck exam: Present: normal inspection, full ROM, other (No stridor JVD or bruits). Absent: tenderness, meningismus, lymphadenopathy Respiratory exam: Present: normal lung sounds bilaterally. Absent: respiratory distress, wheezes, rales, rhonchi, stridor Cardiovascular Exam: Present: regular rate, normal rhythm, normal heart sounds. Absent: systolic murmur, diastolic murmur, rubs, gallop, clicks GI/Abdominal exam: Present: soft, normal bowel sounds. Absent: distended, tenderness, guarding, rebound, rigid Extremities exam: Present: normal inspection, full ROM, normal capillary refill. Absent: tenderness, pedal edema, joint swelling, calf tenderness Back exam: Present: normal inspection Neurological exam: Present: alert, oriented X3, CN II-XII intact Psychiatric exam: Present: normal affect, normal mood Skin exam: Present: warm, dry, intact, normal color. Absent: rash Course Vital Signs 06/30/21 10:27 Temperature 97.9 F Pulse Rate 67 Respiratory 16 Rate Blood Pressure 142/73 O2 Sat by Pulse 100 Oximetry Medical Decision Making - Medical Decision Making I did discuss the findings with the patient and family as well as with Dr. Varela with the patient be admitted for inpatient evaluation and treatment of dehydration and appendectomy to anemia Dr. Gonzalez will be consulted - Lab Data Result diagrams: 06/30/21 11:24 06/30/21 11:24 Lab Results 06/30/21 06/30/21 06/30/21 Range/Units 11:24 11:24 11:24 WBC 4.3 (3.8-10.6) k/uL RBC 3.49 L (3.80-5.40) m/uL Hgb 10.9 L (11.4-16.0) gm/dL Hct 32.9 L (34.0-46.0) % MCV 94.3 (80.0-100.0) fL MCH 31.1 (25.0-35.0) pg MCHC 33.0 (31.0-37.0) g/dL RDW 13.6 (11.5-15.5) % Plt Count 177 (150-450) k/uL MPV 8.3 Neutrophils % 61 % Lymphocytes % 27 % Monocytes % 6 % Eosinophils % 4 % Basophils % 1 % Neutrophils # 2.6 (1.3-7.7) k/uL Lymphocytes # 1.1 (1.0-4.8) k/uL Monocytes # 0.3 (0-1.0) k/uL Eosinophils # 0.2 (0-0.7) k/uL Basophils # 0.0 (0-0.2) k/uL Sodium (137-145) mmol/L Potassium (3.5-5.1) mmol/L Chloride (98-107) mmol/L Carbon Dioxide (22-30) mmol/L Anion Gap mmol/L BUN (7-17) mg/dL Creatinine (0.52-1.04) mg/dL Est GFR (CKD-EPI)AfAm (>60 ml/min/1.73 sqM) Est GFR (CKD-EPI)NonAf (>60 ml/min/1.73 sqM) Glucose (74-99) mg/dL Calcium (8.4-10.2) mg/dL Magnesium (1.6-2.3) mg/dL Total Bilirubin (0.2-1.3) mg/dL AST (14-36) U/L ALT (4-34) U/L Alkaline Phosphatase (38-126) U/L Creatine Kinase (30-135) U/L Troponin I <0.012 (0.000-0.034) ng/mL Total Protein (6.3-8.2) g/dL Albumin (3.5-5.0) g/dL Urine Color Light Yellow Urine Appearance Clear (Clear) Urine pH 6.5 (5.0-8.0) Ur Specific [place] 1.005 (1.001-1.035) Urine Protein Negative (Negative) Urine Glucose (UA) Negative (Negative) Urine Ketones Negative (Negative) Urine Blood Negative (Negative) Urine Nitrite Negative (Negative) Urine Bilirubin Negative (Negative) Urine Urobilinogen <2.0 (<2.0) mg/dL Ur Leukocyte Esterase Negative (Negative) 06/30/21 Range/Units 11:24 WBC (3.8-10.6) k/uL RBC (3.80-5.40) m/uL Hgb (11.4-16.0) gm/dL Hct (34.0-46.0) % MCV (80.0-100.0) fL MCH (25.0-35.0) pg MCHC (31.0-37.0) g/dL RDW (11.5-15.5) % Plt Count (150-450) k/uL MPV Neutrophils % % Lymphocytes % % Monocytes % % Eosinophils % % Basophils % % Neutrophils # (1.3-7.7) k/uL Lymphocytes # (1.0-4.8) k/uL Monocytes # (0-1.0) k/uL Eosinophils # (0-0.7) k/uL Basophils # (0-0.2) k/uL Sodium 121 L (137-145) mmol/L Potassium 4.2 (3.5-5.1) mmol/L Chloride 94 L (98-107) mmol/L Carbon Dioxide 20 L (22-30) mmol/L Anion Gap 7 mmol/L BUN 30 H (7-17) mg/dL Creatinine 1.64 H (0.52-1.04) mg/dL Est GFR (CKD-EPI)AfAm 34 (>60 ml/min/1.73 sqM) Est GFR (CKD-EPI)NonAf 29 (>60 ml/min/1.73 sqM) Glucose 76 (74-99) mg/dL Calcium 8.3 L (8.4-10.2) mg/dL Magnesium 1.6 (1.6-2.3) mg/dL Total Bilirubin 0.6 (0.2-1.3) mg/dL AST 35 (14-36) U/L ALT 19 (4-34) U/L Alkaline Phosphatase 62 (38-126) U/L Creatine Kinase 280 H (30-135) U/L Troponin I (0.000-0.034) ng/mL Total Protein 5.9 L (6.3-8.2) g/dL Albumin 3.6 (3.5-5.0) g/dL Urine Color Urine Appearance (Clear) Urine pH (5.0-8.0) Ur Specific [place] (1.001-1.035) Urine Protein (Negative) Urine Glucose (UA) (Negative) Urine Ketones (Negative) Urine Blood (Negative) Urine Nitrite (Negative) Urine Bilirubin (Negative) Urine Urobilinogen (<2.0) mg/dL Ur Leukocyte Esterase (Negative) - EKG Data -: EKG Interpreted by Me EKG shows normal: sinus rhythm (Sinus rhythm 62 OH interval 237 QRS duration 142 QT since QTC 465/471 right bundle-branch block pattern moderate voltage criteria for LVH nonspecific septal changes) Disposition Clinical Impression: Hyponatremia, Dehydration, Renal insufficiency, Weakness Disposition: ADMITTED IP TO THIS [facility] Condition: Fair Referrals: Kayden Trammell MD [Primary Care Provider] - 1-2 days Decision Date: 06/30/21 Decision Time: 14:00
[2021-06-30 11:33] LABS: Basophils % (A) 1 %; Eosinophils # (A) 0.2 k/uL (0-0.7); Eosinophils % (A) 4 %; HCT 32.9 % (34.0-46.0); HGB 10.9 gm/dL (11.4-16.0); Lymphocytes # (A) 1.1 k/uL (1.0-4.8); Lymphocytes % (A) 27 %; MCH 31.1 pg (25.0-35.0); MCV 94.3 fL (80.0-100.0); Mean Platelet Volume 8.3; Monocytes # (A) 0.3 k/uL (0-1.0); Monocytes % (A) 6 %; Neutrophils # (A) 2.6 k/uL (1.3-7.7); Neutrophils % (A) 61 %; Platelet Count 177 k/uL (150-450); RBC 3.49 m/uL (3.80-5.40); RDW 13.6 % (11.5-15.5); WBC 4.3 k/uL (3.8-10.6)
[2021-06-30 11:43] LABS: Albumin 3.6 g/dL (3.5-5.0); Calcium 8.3 mg/dL (8.4-10.2); Magnesium 1.6 mg/dL (1.6-2.3); Potassium 4.2 mmol/L (3.5-5.1); Total Bilirubin 0.6 mg/dL (0.2-1.3); Total Protein 5.9 g/dL (6.3-8.2)
[2021-06-30 12:22] LABS: Appearance,Urine Clear (Clear); Bilirubin,Urine Negative (Negative); Blood,Urine Negative (Negative); Color,Urine Light Yellow; Glucose,Urine (UA) Negative (Negative); Ketones,Urine Negative (Negative); Leukocyte Esterase,Urine Negative (Negative); Nitrite,Urine Negative (Negative); PH, Urine 6.5 (5.0-8.0); Protein,Urine Negative (Negative); Specific Gravity,Urine 1.005 (1.001-1.035); Urobilinogen,Urine <2.0 mg/dL (<2.0)
[2021-06-30] MEDS ORDERED: NALOXONE 0.4 MG/ML 1 ML VIAL IV PRN (14:39)
--- NOTE | 2021-06-30 15:28 | P.HPIM ---
History of Present Illness H&P Date: 06/30/21 Chief Complaint: Hyponatremia Patient is an 80-year-old female with of hypothyroidism, depression, hypertension that presents the ED for abnormal lab work. She reports chronic diarrhea this pain ongoing for the past 6 months. She describes her stool as loose, brown in color, no blood. She reports having 3 bowel movements a day. She went to urgent care where she dropped off a stool sample. Lab work was done which showed the patient was hyponatremic. Her infectious disease technician Dr. Gonzalez advised her to come to the ED. She denies any headache, lower extremity edema, nausea or vomiting, fever or chills, cough, chest pain, shortness of breath, palpitations, changes in urination or bowel habits. No changes in appetite or weight. She denies any dizziness, numbness/weakness/tingling of the extremities. In the ED, her vital signs are stable. CBC showed hemoglobin of 10.9. CMP showed sodium of 121, chloride 94, bicarb of 20, BUN of 30, creatinine 1.64, calcium of 8.3. Creatinine kinase was 280. Urinalysis negative. Troponin less than 0.012 with EKG showing no ST elevation. Patient is admitted for workup of hyponatremia with nephrology on consult. Review of systems was completed and is negative except above. General: [non toxic], [no distress], [appears at stated age] Derm: [warm], [dry] Head: [atraumatic], [normocephalic], [symmetric] Eyes: [EOMI], [no lid lag], [anicteric sclera] Mouth: [no lip lesion], [mucus membranes moist] Cardiovascular: [S1S2 reg], [no murmur], [positive posterior tibial pulse bilateral], Lungs: [CTA bilateral], [no rhonchi, no rales] , [no accessory muscle use] Abdominal: [soft], [ nontender to palpation], [no guarding], [no appreciable organomegaly] Ext: [no gross muscle atrophy], [no edema], [no contractures] Neuro: [ CN II-XI grossly intact], [no focal neuro deficits] Psych: [Alert], [oriented], [appropriate affect] #Hyponatremia #Metabolic acidosis #Acute kidney injury #Diarrhea Chronic conditions: Hypothyroidism, depression, hypertension Patient presents with diarrhea for 6 months. She was advised to go to the ED for abnormal blood work. Her CMP is significant for hyponatremia and acute kidney injury. This is likely related to dehydration and her ongoing diarrhea. She'll be started on normal saline at 75 mL per hour. BMP will be repeated tomorrow morning. Nephrology has been consulted for further management of this patient. She will need to follow-up with her PCP and GI Dr. Stanton in the outpatient setting for workup of chronic diarrhea. She'll be restarted on Synthroid for history of hypothyroidism. Restart citalopram and Xanax for history of depression. Restart verapamil for history of hypertension. DVT prophylaxis: [Heparin] Discussed with: [Patient and son] Anticipated discharge: [1-2 days] Anticipated discharge place: [Home] A total of [45] minutes was spent on the care of this complex patient more than 50% of the time was spent in counseling and care coordination. Patient names her son decision maker if she can't make decisions for herself. Patient would like to be no code. Past Medical History Past Medical History: Hypertension, Renal Disease, Thyroid Disorder Additional Past Medical History / Comment(s): constipation, hx IBS, 29 % kidney function, History of Any Multi-Drug Resistant Organisms: None Reported Past Surgical History: Cholecystectomy, Hysterectomy Additional Past Surgical History / Comment(s): yovana cataracts Past Anesthesia/Blood Transfusion Reactions: No Reported Reaction Past Psychological History: No Psychological Hx Reported Smoking Status: Never smoker Past Alcohol Use History: None Reported Past Drug Use History: None Reported - Past Family History Father Family Medical History: Cancer Medications and Allergies Home Medications Medication Instructions Recorded Confirmed Type ALPRAZolam [Xanax] 0.25 mg PO HS 10/13/17 06/30/21 History Levothyroxine Sodium [Synthroid] 75 mcg PO AC-BRKFST 10/13/17 06/30/21 History Verapamil HCl [Verapamil ER] 120 mg PO W/BRKFST 10/13/17 06/30/21 History Citalopram Hydrobromide [CeleXA] 40 mg PO W/BRKFST 08/25/20 06/30/21 History allopurinoL [Zyloprim] 100 mg PO DAILY@1200 08/25/20 06/30/21 History Ferrous Sulfate [Feosol] 325 mg PO W/BRKFST 06/30/21 06/30/21 History Allergies Allergy/AdvReac Type Severity Reaction Status Date / Time No Known Allergies Allergy Verified 06/30/21 12:25 Physical Exam Vitals: Vital Signs Temp Pulse Resp BP Pulse Ox 06/30/21 10:27 97.9 F 67 16 142/73 100 Intake and Output 06/30/21 06/30/21 06/30/21 06:59 14:59 22:59 Other: Weight 53.07 kg Results CBC & Chem 7: 06/30/21 11:24 06/30/21 11:24 Labs: Abnormal Lab Results - Last 24 Hours (Table) 06/30/21 06/30/21 Range/Units 11:24 11:24 RBC 3.49 L (3.80-5.40) m/uL Hgb 10.9 L (11.4-16.0) gm/dL Hct 32.9 L (34.0-46.0) % Sodium 121 L (137-145) mmol/L Chloride 94 L (98-107) mmol/L Carbon Dioxide 20 L (22-30) mmol/L BUN 30 H (7-17) mg/dL Creatinine 1.64 H (0.52-1.04) mg/dL Calcium 8.3 L (8.4-10.2) mg/dL Creatine Kinase 280 H (30-135) U/L Total Protein 5.9 L (6.3-8.2) g/dL
[2021-06-30] MEDS: SODIUM CHLORIDE 0.9% 1,000 ML IV SCH (15:38)
[2021-06-30] MEDS: HEPARIN SODIUM,PORCINE/PF 5,000 UNIT/0.5 ML SYRINGE SQ SCH (17:23)
[2021-06-30 20:08] LABS: African American GFR (CKD) 34 (>60 ml/min/1.73 sqM); Anion Gap 7 mmol/L; Blood Urea Nitrogen 30 mg/dL (7-17); Calcium 8.4 mg/dL (8.4-10.2); Carbon Dioxide 23 mmol/L (22-30); Chloride 93 mmol/L (98-107); Glucose 97 mg/dL (74-99); Non-African American GFR(CKD) 29 (>60 ml/min/1.73 sqM); Potassium 4.4 mmol/L (3.5-5.1); Sodium 123 mmol/L (137-145)
[2021-06-30] MEDS: ALPRAZolam 0.25 MG TAB PO SCH (21:00)
[2021-06-30] MEDS: ACETAMINOPHEN TAB 325 MG TAB PO PRN (22:01)
[2021-07-01] MEDS: SODIUM CHLORIDE 0.9% 1,000 ML IV SCH ×2 (00:30→19:29)
[2021-07-01] MEDS: HEPARIN SODIUM,PORCINE/PF 5,000 UNIT/0.5 ML SYRINGE SQ SCH ×4 (00:30→23:02)
[2021-07-01 06:05] LABS: African American GFR (CKD) 36 (>60 ml/min/1.73 sqM); Anion Gap 6 mmol/L; Blood Urea Nitrogen 26 mg/dL (7-17); Calcium 8.5 mg/dL (8.4-10.2); Carbon Dioxide 22 mmol/L (22-30); Chloride 97 mmol/L (98-107); Glucose 77 mg/dL (74-99); Non-African American GFR(CKD) 32 (>60 ml/min/1.73 sqM); Potassium 4.3 mmol/L (3.5-5.1); Sodium 125 mmol/L (137-145)
[2021-07-01] MEDS: CITALOPRAM HYDROBROMIDE 20 MG TAB PO SCH (09:36)
[2021-07-01] MEDS: FERROUS SULFATE 325 MG TAB PO SCH (09:36)
[2021-07-01] MEDS: LEVOTHYROXINE 75 MCG TAB PO SCH (09:36)
[2021-07-01] MEDS: VERAPAMIL SR 120 MG TABLET.ER PO SCH (09:36)
[2021-07-01] MEDS ORDERED: allopurinoL 100 MG TAB PO SCH (12:00)
--- NOTE | 2021-07-01 12:45 | P.PN ---
Subjective Progress Note Date: 07/01/21 Principal diagnosis: Hyponatremia Patient was seen and examined. No acute events overnight. No bowel movements today. She has no complaints. Objective - Vital Signs Vital signs: Vital Signs Temp 98 F 07/01/21 08:25 Pulse 79 07/01/21 08:25 Resp 19 07/01/21 08:25 BP 132/65 07/01/21 08:25 Pulse Ox 100 07/01/21 08:25 Intake & Output 06/30/21 07/01/21 07/01/21 18:59 06:59 18:59 Intake Total 180 180 Output Total 500 Balance 180 -500 180 Weight 53.07 kg Intake: Oral 180 180 Output: Urine 500 Other: # Voids 2 - Exam General: [non toxic], [no distress], [appears at stated age] Derm: [warm], [dry] Head: [atraumatic], [normocephalic], [symmetric] Eyes: [EOMI], [no lid lag], [anicteric sclera] Mouth: [no lip lesion], [mucus membranes moist] Cardiovascular: [S1S2 reg], [no murmur], [positive DP pulse bilateral], Lungs: [CTA bilateral], [no rhonchi, no rales] , [no accessory muscle use] Ext: [no gross muscle atrophy], [no edema], [no contractures] Neuro: [no focal neuro deficits] Psych: [Alert], [oriented], [appropriate affect] - Labs CBC & Chem 7: 06/30/21 11:24 07/01/21 05:31 Labs: Abnormal Lab Results - Last 24 Hours (Table) 06/30/21 07/01/21 Range/Units 19:10 05:31 Sodium 123 L 125 L (137-145) mmol/L Chloride 93 L 97 L (98-107) mmol/L BUN 30 H 26 H (7-17) mg/dL Creatinine 1.64 H 1.54 H (0.52-1.04) mg/dL Assessment and Plan Assessment: #Hyponatremia #Acute kidney injury #Diarrhea Resolved: Metabolic acidosis Chronic conditions: Hypothyroidism, depression, hypertension Patient presents with diarrhea for 6 months. She was advised to go to the ED for abnormal blood work. Her CMP is significant for hyponatremia and acute kidney injury. This is likely related to dehydration and her ongoing diarrhea. Normal saline has been increased to 100 mL per hour. BMP will be repeated tomorrow morning. Nephrology has been consulted for further management of this patient. She will need to follow-[facility]. She'll be restarted on Synthroid for history of hypothyroidism. Restart citalopram and Xanax for history of depression. Restart verapamil for history of hypertension. DVT prophylaxis: [Heparin] Discussed with: [Patient and son] Anticipated discharge: [1-2 days] Anticipated discharge place: [Home] A total of [45] minutes was spent on the care of this complex patient more than 50% of the time was spent in counseling and care coordination. Patient names her son decision maker if she can't make decisions for herself. Patient would like to be no code. Sodium slowly improving. Likely hypovolemic hyponatremia from dehydration and diarrhea. Nephrology consult pending. Anticipate DC in 1-2 days with improvement in sodium and kidney function.
--- NOTE | 2021-07-01 13:21 | P.NPCON ---
History of Present Illness - Reason for Consult acute renal failure, hyponatremia - History of Present Illness Patient is a 80-year-old female with history of chronic kidney disease NKF stage IIIB with baseline creatinine about 1.2 mg/dL. Patient is admitted to the hospital with history of diarrhea. Patient has underlying chronic diarrhea which seems to have worsened prior to admission. Labs as outpatient showed low sodium and patient was advised to go into the ER. Sodium was 121. Patient's blood pressure was not low. Patient has been started on normal saline her sodium has improved to 125 today. No significant nausea vomiting or abdominal pain fever chills chest pains or shortness of breath. Diarrhea seems to have improved. Review of Systems As per HPI, other systems negative Past Medical History Past Medical History: GERD/Reflux, GI Bleed, Hypertension, Osteoarthritis (OA), Renal Disease, Syncope, Thyroid Disorder, Vascular Disorder Additional Past Medical History / Comment(s): CKD stage III, IBS, past constipation but diarrhea past few months, duodenal and antral ulcer/acute anemia with transfusion, chronic anemia, hiatal hernia, varicosities, L side sciatica, arthritis in neck and L hip, hypothyroid, sinus problems. History of Any Multi-Drug Resistant Organisms: None Reported Past Surgical History: Appendectomy, Cholecystectomy, Hysterectomy Additional Past Surgical History / Comment(s): D&C, EGD, colonoscopy, yovana cataracts Past Anesthesia/Blood Transfusion Reactions: No Reported Reaction Additional Past Anesthesia/Blood Transfusion Reaction / Comment(s): Pt has received blood in past without reaction. Smoking Status: Never smoker - Past Family History Father Family Medical History: Cancer Additional Family Medical History / Comment(s): Father at the age of 57yrs from cancer which pt thinks was esophageal. Mother Family Medical History: No Reported History Additional Family Medical History / Comment(s): Mother lived to be 97yrs old. Medications and Allergies Home Medications Medication Instructions Recorded Confirmed Type ALPRAZolam [Xanax] 0.25 mg PO HS 10/13/17 06/30/21 History Levothyroxine Sodium [Synthroid] 75 mcg PO AC-BRKFST 10/13/17 06/30/21 History Verapamil HCl [Verapamil ER] 120 mg PO W/BRKFST 10/13/17 06/30/21 History Citalopram Hydrobromide [CeleXA] 40 mg PO W/BRKFST 08/25/20 06/30/21 History allopurinoL [Zyloprim] 100 mg PO DAILY@1200 08/25/20 06/30/21 History Ferrous Sulfate [Feosol] 325 mg PO W/BRKFST 06/30/21 06/30/21 History Allergies Allergy/AdvReac Type Severity Reaction Status Date / Time No Known Allergies Allergy Verified 06/30/21 12:25 Physical Exam Vitals: Vital Signs Temp Pulse Pulse Resp BP BP Pulse Ox 07/01/21 08:25 98 F 79 19 132/65 100 07/01/21 02:00 97.9 F 70 16 175/70 99 06/30/21 20:00 97.9 F 66 16 151/71 99 06/30/21 15:41 97.8 F 73 16 134/57 100 Intake and Output 06/30/21 07/01/21 07/01/21 22:59 06:59 14:59 Intake Total 180 180 Output Total 500 Balance 180 -500 180 Intake: Oral 180 180 Output: Urine 500 Other: # Voids 2 Weight 53.07 kg Patient is awake, comfortable, not in any acute distress. Examination of the heart S1 and S2 Exertion lungs bilateral breath sounds are heard Abdomen is soft nontender Examination of lower extremities shows no evidence of edema [employer]PER exam is grossly intact Results - Lab Results Most recent lab results Calcium 8.5 mg/dL (8.4-10.2) 07/01/21 05:31 Magnesium 1.6 mg/dL (1.6-2.3) 06/30/21 11:24 06/30/21 11:24 07/01/21 05:31 Assessment and Plan Assessment: 1. Hypovolemic hyponatremia currently improving with normal saline. Continue with normal saline recheck sodium this afternoon. Patient is also encouraged to increase oral intake particularly protein. No thiazide diuretics noted. 2. Acute kidney injury prerenal, currently improving with IV hydration 3. Chronic kidney disease NKF stage IIIB secondary to nephrosclerosis, baseline creatinine around 1.2 mg/dL. UA is completely benign 4. Mild non-gap metabolic acidosis associated with diarrhea, currently improved 5. Diarrhea, improving. Plan: Continue with normal saline Check serum sodium this afternoon Encourage increased oral intake Repeat labs in a.m. next Thank you for the consultation. We will continue to follow the patient with you during her hospitalization
[2021-07-01] MEDS: DICLOFENAC SODIUM GEL 100 GM TUBE TOPICAL PRN ×2 (13:53→21:20)
[2021-07-01] MEDS: ALPRAZolam 0.25 MG TAB PO SCH (21:19)
[2021-07-01] MEDS: ACETAMINOPHEN TAB 325 MG TAB PO PRN (21:19)
[2021-07-02 06:50] LABS: African American GFR (CKD) 34 (>60 ml/min/1.73 sqM); Anion Gap 4 mmol/L; Blood Urea Nitrogen 29 mg/dL (7-17); Carbon Dioxide 21 mmol/L (22-30); Chloride 106 mmol/L (98-107); Glucose 76 mg/dL (74-99); Non-African American GFR(CKD) 29 (>60 ml/min/1.73 sqM); Potassium 4.4 mmol/L (3.5-5.1); Sodium 131 mmol/L (137-145)
[2021-07-02] MEDS: VERAPAMIL SR 120 MG TABLET.ER PO SCH (07:44)
[2021-07-02] MEDS: CITALOPRAM HYDROBROMIDE 20 MG TAB PO SCH (07:44)
[2021-07-02] MEDS: LEVOTHYROXINE 75 MCG TAB PO SCH (07:44)
[2021-07-02] MEDS: HEPARIN SODIUM,PORCINE/PF 5,000 UNIT/0.5 ML SYRINGE SQ SCH ×2 (07:44→15:30)
[2021-07-02] MEDS: FERROUS SULFATE 325 MG TAB PO SCH (07:44)
--- NOTE | 2021-07-02 10:42 | P.DS ---
Providers Date of admission: 06/30/21 14:39 Expected date of discharge: 07/02/21 Attending physician: Sue Modi MD Consults: 06/30/21 14:40 Consult Physician Routine Consulting Provider: Latisha Gonzalez Consult Reason/Comments: Hyponatremia, renal insufficiency Do you want consulting provider notified?: Yes Primary care physician: [facility] Course: Patient is an 80-year-old female with of hypothyroidism, depression, hypertension that presents the ED for abnormal lab work. She reports chronic diarrhea this pain ongoing for the past 6 months. She describes her stool as loose, brown in color, no blood. She reports having 3 bowel movements a day. She went to urgent care where she dropped off a stool sample. Lab work was done which showed the patient was hyponatremic. Her lay out former Dr. Gonzalez advised her to come to the ED. She denies any headache, lower extremity edema, nausea or vomiting, fever or chills, cough, chest pain, shortness of breath, palpitations, changes in urination or bowel habits. No changes in appetite or weight. She denies any dizziness, numbness/weakness/tingling of the extremities. In the ED, her vital signs are stable. CBC showed hemoglobin of 10.9. CMP showed sodium of 121, chloride 94, bicarb of 20, BUN of 30, creatinine 1.64, calcium of 8.3. Creatinine kinase was 280. Urinalysis negative. Troponin less than 0.012 with EKG showing no ST elevation. Patient is admitted for workup of hyponatremia with nephrology on consult. Her hyponatremia and acute kidney injury was thought to be related to dehydration and diarrhea. She started on normal saline. Her sodium improved from 121-131 at the time of discharge. Creatinine remained stable from 1.64- 1.65 at the time of discharge. She was seen and examined on 07/02/2021. She was retaining about 500 mL of urine on bladder scan. Nephrology recommended straight cath and repeat bladder scan this afternoon. Patient is to be discharged home if her urinary retention results. This complex discharge took about 45 minutes to complete. General: [non toxic], [no distress], [appears at stated age] Derm: [warm], [dry] Head: [atraumatic], [normocephalic], [symmetric] Eyes: [EOMI], [no lid lag], [anicteric sclera] Mouth: [no lip lesion], [mucus membranes moist] Cardiovascular: [S1S2 reg], [no murmur], [positive DP pulse bilateral], Lungs: [CTA bilateral], [no rhonchi, no rales] , [no accessory muscle use] Ext: [no gross muscle atrophy], [no edema], [no contractures] Neuro: [no focal neuro deficits] Psych: [Alert], [oriented], [appropriate affect] Discharge Diagnosis: #Hyponatremia #Acute kidney injury #Diarrhea Resolved: Metabolic acidosis Chronic conditions: Hypothyroidism, depression, hypertension Procedures: Straight cath with bladder scan Patient Condition at Discharge: Stable Plan - Discharge Summary Discharge Rx Participant: No New Discharge Prescriptions: Continue ALPRAZolam [Xanax] 0.25 mg PO HS Verapamil HCl [Verapamil ER] 120 mg PO W/BRKFST Levothyroxine Sodium [Synthroid] 75 mcg PO AC-BRKFST allopurinoL [Zyloprim] 100 mg PO DAILY@1200 Citalopram Hydrobromide [CeleXA] 40 mg PO W/BRKFST Ferrous Sulfate [Feosol] 325 mg PO W/BRKFST Discharge Medication List ALPRAZolam [Xanax] 0.25 mg PO HS 10/13/17 [History] Levothyroxine Sodium [Synthroid] 75 mcg PO AC-BRKFST 10/13/17 [History] Verapamil HCl [Verapamil ER] 120 mg PO W/BRKFST 10/13/17 [History] Citalopram Hydrobromide [CeleXA] 40 mg PO W/BRKFST 08/25/20 [History] allopurinoL [Zyloprim] 100 mg PO DAILY@1200 08/25/20 [History] Ferrous Sulfate [Feosol] 325 mg PO W/BRKFST 06/30/21 [History] Follow up Appointment(s)/Referral(s): Latisha Gonzalez MD [STAFF PHYSICIAN] - 1 Week Kayden Trammell MD [Primary Care Provider] - 1-2 days Activity/Diet/Wound Care/Special Instructions: Diet: Regular FU with PCP within 1-2 days of discharge. FU with Nephrology Dr. Gonzalez within 1 week of discharge. Take all medications as advised. Come back to the ED for chest pain, shortness of breath, palpitations, lightheadedness. Discharge Disposition: HOME SELF-CARE
--- NOTE | 2021-07-02 10:50 | P.PN ---
Subjective Patient is seen for follow-up for acute kidney injury and hyponatremia which was mostly hypovolemic. Patient is maintained on IV fluids. Her sodium has improved to 131 today. Serum creatinine however is higher at 1.65. Patient does have an external catheter. Need to rule out urine retention. No evidence of hypotension. Overall feeling much better. Objective - Vital Signs Vital signs: Vital Signs Temp 98.6 F 07/02/21 08:00 Pulse 71 07/02/21 08:00 Resp 18 07/02/21 08:00 BP 176/72 07/02/21 08:00 Pulse Ox 98 07/02/21 08:00 Intake & Output 07/01/21 07/02/21 07/02/21 18:59 06:59 18:59 Intake Total 540 Output Total 900 Balance -360 Intake: Oral 540 Output: Urine 900 Other: Voiding Method Toilet External Catheter - Exam Awake, comfortable, not in any acute distress Alert oriented 3 Examination of the heart S1 and S2 Exertion lungs bilateral breath sounds are heard Abdomen is soft nontender Exertion lower extremity shows no evidence of edema [employer]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 Hypovolemic hyponatremia currently improving with normal saline. Patient is also encouraged to increase oral intake particularly protein. No thiazide diuretics noted. 2. Acute kidney injury prerenal, currently improving with IV hydration. Serum creatinine slightly higher today, rule out urine retention 3. Chronic kidney disease NKF stage IIIB secondary to nephrosclerosis, baseline creatinine around 1.2 mg/dL. UA is completely benign 4. Mild non-gap metabolic acidosis associated with diarrhea, currently improved 5. Diarrhea, improved Plan: Check bladder scan to rule out urine retention Continue with saline Patient is encouraged to increase oral intake If there is urine retention consider straight And the patient may benefit from Flomax.
[2021-07-02] MEDS: SODIUM CHLORIDE 0.9% 1,000 ML IV SCH ×2 (14:24→23:04)
[2021-07-02] MEDS ORDERED: TAMSULOSIN 0.4 MG CAP.ER.24H PO STA (15:18)
[2021-07-02] MEDS ORDERED: polyethylene glycoL 3350 17 GM POWD.PACK PO STA (21:17)
[2021-07-02] MEDS: ACETAMINOPHEN TAB 325 MG TAB PO PRN (23:04)
[2021-07-02] MEDS: ALPRAZolam 0.25 MG TAB PO SCH (23:04)
[2021-07-03] MEDS: HEPARIN SODIUM,PORCINE/PF 5,000 UNIT/0.5 ML SYRINGE SQ SCH ×2 (00:12→07:25)
[2021-07-03] MEDS: FERROUS SULFATE 325 MG TAB PO SCH (07:25)
[2021-07-03] MEDS: LEVOTHYROXINE 75 MCG TAB PO SCH (07:25)
[2021-07-03] MEDS: VERAPAMIL SR 120 MG TABLET.ER PO SCH (07:25)
[2021-07-03] MEDS: CITALOPRAM HYDROBROMIDE 20 MG TAB PO SCH (07:25)
[2021-07-03 08:04] VITALS: TEMP 97.5
[2021-07-03] MEDS ORDERED: TAMSULOSIN 0.4 MG CAP.ER.24H PO SCH (08:30)
[2021-07-03] MEDS: DICLOFENAC SODIUM GEL 100 GM TUBE TOPICAL PRN (09:32)
[2021-07-03] MEDS: SODIUM CHLORIDE 0.9% 1,000 ML IV SCH (09:33)
[2021-07-03] MEDS ORDERED: LACTULOSE 20 GM/30 ML CUP PO SCH ×2 (10:30)
--- NOTE | 2021-07-03 11:34 | P.PN ---
Subjective Patient is seen for follow-up for acute kidney injury and hyponatremia which was mostly hypovolemic. Patient is maintained on IV fluids. Her sodium has improved to 131 yesterday. Serum creatinine however is higher at 1.65. Patient was noted to have urine retention yesterday Patient does have an external catheter. Complaining of constipation. Objective - Vital Signs Vital signs: Vital Signs Temp 97.5 F L 07/03/21 08:00 Pulse 82 07/03/21 08:00 Resp 18 07/03/21 08:00 BP 170/80 07/03/21 08:00 Pulse Ox 96 07/03/21 08:00 Intake & Output 07/02/21 07/03/21 07/03/21 18:59 06:59 18:59 Output Total 400 850 600 Balance -400 -850 -600 Output: Urine 400 850 600 Straight 400 Other: Voiding Method Toilet External Catheter # Voids 3 1 # Bowel Movements 0 - Exam Awake, comfortable, not in any acute distress Alert oriented 3 Examination of the heart S1 and S2 Exertion lungs bilateral breath sounds are heard Abdomen is soft nontender Exertion lower extremity shows no evidence of edema 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 Hypovolemic hyponatremia currently improving with normal saline. Patient is also encouraged to increase oral intake particularly protein. No thiazide diuretics noted. 2. Acute kidney injury prerenal, currently improving with IV hydration. Serum creatinine slightly higher today, rule out urine retention 3. Chronic kidney disease NKF stage IIIB secondary to nephrosclerosis, baseline creatinine around 1.2 mg/dL. UA is completely benign 4. Mild non-gap metabolic acidosis associated with diarrhea, currently improved 5. Diarrhea, improved 6. Urine retention, started on Flomax yesterday. This is probably exacerbated by underlying constipation. This will be treated as well. Plan: Continue with Flomax Treat constipation Okay for discharge from nephrology standpoint. Patient should see urology as outpatient for urine retention
--- NOTE | 2021-07-03 12:31 | P.DS ---
Providers Date of admission: 06/30/21 14:39 Expected date of discharge: 07/03/21 Attending physician: Sue Modi MD Consults: 06/30/21 14:40 Consult Physician Routine Consulting Provider: Latisha Gonzalez Consult Reason/Comments: Hyponatremia, renal insufficiency Do you want consulting provider notified?: Yes Primary care physician: [facility] Course: Patient is an 80-year-old female with of hypothyroidism, depression, hypertension that presents the ED for abnormal lab work. She reports chronic diarrhea this pain ongoing for the past 6 months. She describes her stool as loose, brown in color, no blood. She reports having 3 bowel movements a day. She went to urgent care where she dropped off a stool sample. Lab work was done which showed the patient was hyponatremic. 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 She denies any headache, lower extremity edema, nausea or vomiting, fever or chills, cough, chest pain, shortness of breath, palpitations, changes in urination or bowel habits. No changes in appetite or weight. She denies any dizziness, numbness/weakness/tingling of the extremities. In the ED, her vital signs are stable. CBC showed hemoglobin of 10.9. CMP showed sodium of 121, chloride 94, bicarb of 20, BUN of 30, creatinine 1.64, calcium of 8.3. Creatinine kinase was 280. Urinalysis negative. Troponin less than 0.012 with EKG showing no ST elevation. Patient is admitted for workup of hyponatremia with nephrology on consult. Her hyponatremia and acute kidney injury was thought to be related to dehydration and diarrhea. She started on normal saline. Her sodium improved from 121-131 at the time of discharge. Creatinine remained stable from 1.64- 1.65 at the time of discharge. She was seen and examined on 07/02/2021. She was retaining about 500 mL of urine on bladder scan. Nephrology recommended straight cath and repeat bladder scan this afternoon. She was unable to urinate at that point and her discharge was held. She was started on Flomax. She was urinating freely when seen and examined on 07/03/2021. She was subsequently discharged on Flomax to follow up with Urology within a week of discharge. Patient is to be discharged home if her urinary retention results. This complex discharge took about 45 minutes to complete. General: [non toxic], [no distress], [appears at stated age] Derm: [warm], [dry] Head: [atraumatic], [normocephalic], [symmetric] Eyes: [EOMI], [no lid lag], [anicteric sclera] Mouth: [no lip lesion], [mucus membranes moist] Cardiovascular: [S1S2 reg], [no murmur], [positive DP pulse bilateral], Lungs: [CTA bilateral], [no rhonchi, no rales] , [no accessory muscle use] Ext: [no gross muscle atrophy], [no edema], [no contractures] Neuro: [no focal neuro deficits] Psych: [Alert], [oriented], [appropriate affect] Discharge Diagnosis: #Hyponatremia #Acute kidney injury #Diarrhea #Metabolic acidosis Chronic conditions: Hypothyroidism, depression, hypertension Patient Condition at Discharge: Stable Plan - Discharge Summary Discharge Rx Participant: No New Discharge Prescriptions: New Tamsulosin [Flomax] 0.4 mg PO DAILY #30 cap Continue ALPRAZolam [Xanax] 0.25 mg PO HS Verapamil HCl [Verapamil ER] 120 mg PO W/BRKFST Levothyroxine Sodium [Synthroid] 75 mcg PO AC-BRKFST allopurinoL [Zyloprim] 100 mg PO DAILY@1200 Citalopram Hydrobromide [CeleXA] 40 mg PO W/BRKFST Ferrous Sulfate [Feosol] 325 mg PO W/BRKFST Discharge Medication List ALPRAZolam [Xanax] 0.25 mg PO HS 10/13/17 [History] Levothyroxine Sodium [Synthroid] 75 mcg PO AC-BRKFST 10/13/17 [History] Verapamil HCl [Verapamil ER] 120 mg PO W/BRKFST 10/13/17 [History] Citalopram Hydrobromide [CeleXA] 40 mg PO W/BRKFST 08/25/20 [History] allopurinoL [Zyloprim] 100 mg PO DAILY@1200 08/25/20 [History] Ferrous Sulfate [Feosol] 325 mg PO W/BRKFST 06/30/21 [History] Tamsulosin [Flomax] 0.4 mg PO DAILY #30 cap 07/02/21 [Rx] Follow up Appointment(s)/Referral(s): Latisha Gonzalez MD [STAFF PHYSICIAN] - 08/03/21 11:20 am Kayden Trammell MD [Primary Care Provider] - 1-2 days (Office will call you with your appointment.) Mat Holt MD [STAFF PHYSICIAN] - 07/09/21 9:00 am ([facility] [NON-STAFF] - ([facility] will call you to schedule your in home nursing and physical therapy visits. ) Patient Instructions/Handouts: Dehydration (DC), Hyponatremia (DC), Weakness (DC) Activity/Diet/Wound Care/Special Instructions: Diet: Regular Follow up with primary care provider within 1-2 days of discharge. Follow up with Nephrology Dr. Gonzalez within 1 week of discharge. Follow up with Urology within 1 week of discharge. Take all medications as advised. Come back to the ED for chest pain, shortness of breath, palpitations, lightheadedness. Discharge Disposition: HOME SELF-CARE
[2021-07-03 14:45] VITALS: BP 104/54; PULSE 61; RESP 16
== END 2021-07-03 15:26 | disposition home or self-care (01) ==
LOC: EC 10:21 → INTOOBSV 14:39 → 4SSUR 14:39
PROVIDERS: ADMIT Internal Medicine; ATTEND Internal Medicine
DX: E87.1 Hypo-osmolality and hyponatremia (principal); N17.9 Acute kidney failure, unspecified; E87.2 Acidosis; K58.2 Mixed irritable bowel syndrome; E86.0 Dehydration; I12.9 Hypertensive chronic kidney disease with stage 1 through stage 4 chronic kidney disease, or unspecified chronic kidney disease; N18.32 Chronic kidney disease, stage 3b; E86.1 Hypovolemia; R33.9 Retention of urine, unspecified; I45.10 Unspecified right bundle-branch block; E03.9 Hypothyroidism, unspecified; K21.9 Gastro-esophageal reflux disease without esophagitis; M19.90 Unspecified osteoarthritis, unspecified site; D64.9 Anemia, unspecified; K44.9 Diaphragmatic hernia without obstruction or gangrene; M54.32 Sciatica, left side; F32.A Depression, unspecified; Z79.890 Hormone replacement therapy; Z79.899 Other long term (current) drug therapy; Z90.710 Acquired absence of both cervix and uterus; Z90.49 Acquired absence of other specified parts of digestive tract; Z87.11 Personal history of peptic ulcer disease; Z87.19 Personal history of other diseases of the digestive system; Z98.42 Cataract extraction status, left eye; Z98.41 Cataract extraction status, right eye; Z80.9 Family history of malignant neoplasm, unspecified
CPT/HCPCS: 96372 ×4; 99285; 36415; 93005; 80053; 80048 ×3; 82550; 83735; 84484; 85025; 81003; G0378 ×4; J1644 ×4

== ENCOUNTER → 2021-08-24 | Outpatient (CLI) | payer MEDICARE ==
--- NOTE | 2021-08-24 12:43 | FL ---
Modified barium swallow. HISTORY: Dysphagia. Modified barium swallow was performed with the department of speech pathology. The patient was prese nted with various consistencies of barium. There is no evidence for aspiration or penetration. Full report is to follow from the department of speech pathology. Impression: Normal study.
[2021-08-24 20:11] LABS: Gliadin AB IgA, Deaminated NEGATIVE (NEGATIVE)
[2021-08-24 20:14] LABS: Gliadin AB IgG, Deaminated NEGATIVE (NEGATIVE); Gliadin AB IgG, Unit 3.1 U/mL
== END | disposition home or self-care (01) ==
LOC: RADFLMAIN 10:55
PROVIDERS: ATTEND Internal Medicine Gastroenterology
DX: R13.10 Dysphagia, unspecified (principal)
CPT/HCPCS: 74230; 83516; 85652; 86140

== ENCOUNTER 2021-11-13 16:57 | Inpatient (IN) | payer MEDICARE ==
[2021-11-13] MEDS ORDERED: SODIUM CHLORIDE 0.9% 1,000 ML IV STA (17:11)
--- NOTE | 2021-11-13 17:11 | ED ---
Dizziness HPI - General Chief Complaint: Syncope Stated Complaint: syncope Time Seen by Provider: 11/13/21 16:57 Source: patient, EMS, RN notes reviewed, old records reviewed Mode of arrival: EMS Limitations: no limitations - History of Present Illness Initial Comments: 81-year-old female history of stage III kidney disease among other medical issues who states that she got up about 2 hours ago try to go the bathroom and felt very profoundly weak and dizzy and let her self down to the floor. No trauma no complaints of pain she has feels weak dizzy and nauseated. EMS was called she was transported here. Initially was noted to have a blood pressure 76/36 and that was after 400 mL of fluid. Is given Zofran as well as 324 mg of aspirin. Initially she had a heart rate of 20 4 repeat heart rate was in the mid 40s with a blood pressure 76/41. No chest pain no palpitations no prior episodes of this. She denies any history of any overt heart disease or rhythm disturbance. No new medications no recent illnesses. MD Complaint: dizziness, lightheadedness, near syncope - Related Data Home Medications Medication Instructions Recorded Confirmed ALPRAZolam [Xanax] 0.5 mg PO HS 10/13/17 10/06/21 Levothyroxine Sodium [Synthroid] 75 mcg PO AC-BRKFST 10/13/17 10/06/21 Verapamil HCl [Verapamil ER] 120 mg PO W/BRKFST 10/13/17 10/06/21 Citalopram Hydrobromide [CeleXA] 40 mg PO W/BRKFST 08/25/20 10/06/21 allopurinoL [Zyloprim] 100 mg PO DAILY@1200 08/25/20 10/06/21 Ferrous Sulfate [Iron] 325 mg PO DAILY@1200 11/13/21 11/13/21 Pantoprazole Sodium [Protonix] 40 mg PO BID-W/MEALS 11/13/21 11/13/21 Allergies Allergy/AdvReac Type Severity Reaction Status Date / Time No Known Allergies Allergy Verified 11/13/21 19:43 Review of Systems ROS Statement: Those systems with pertinent positive or pertinent negative responses have been documented in the HPI. ROS Other: All systems not noted in ROS Statement are negative. Past Medical History Past Medical History: GERD/Reflux, GI Bleed, Hypertension, Osteoarthritis (OA), Renal Disease, Syncope, Thyroid Disorder, Vascular Disorder Additional Past Medical History / Comment(s): CKD stage III, IBS, past constipation but diarrhea past few months, duodenal and antral ulcer/acute anemia with transfusion, chronic anemia, hiatal hernia, varicosities, L side sc iatica, arthritis in neck and L hip, hypothyroid, sinus problems. History of Any Multi-Drug Resistant Organisms: None Reported Past Surgical History: Appendectomy, Cholecystectomy, Hysterectomy Additional Past Surgical History / Comment(s): D&C, EGD, colonoscopy, yovana cataracts Past Anesthesia/Blood Transfusion Reactions: No Reported Reaction Additional Past Anesthesia/Blood Transfusion Reaction / Comment(s): Pt has received blood in past without reaction. Past Psychological History: Anxiety, Depression Smoking Status: Never smoker Past Alcohol Use History: None Reported Past Drug Use History: None Reported - Past Family History Father Family Medical History: Cancer Additional Family Medical History / Comment(s): Father at the age of 57yrs from cancer which pt thinks was esophageal. Mother Family Medical History: No Reported History Additional Family Medical History / Comment(s): Mother lived to be 97yrs old. General Exam - General Exam Comments Initial Comments: This is a well up well-nourished awake alert oriented 4 female. Blood pressure at the time of my exam 85/50 with a heart rate of 53. Limitations: no limitations General appearance: alert, anxious Head exam: Present: atraumatic, normocephalic, normal inspection Eye exam: Present: normal appearance, PERRL, EOMI. Absent: scleral icterus, conjunctival injection, periorbital swelling ENT exam: Present: mucous membranes dry Neck exam: Present: normal inspection, full ROM, other. Absent: tenderness, meningismus, lymphadenopathy Respiratory exam: Present: normal lung sounds bilaterally. Absent: respiratory distress, wheezes, rales, rhonchi, stridor Cardiovascular Exam: Present: normal rhythm, bradycardia (No stridor JVD or bruits). Absent: systolic murmur, diastolic murmur, rubs, gallop, clicks GI/Abdominal exam: Present: soft, normal bowel sounds. Absent: distended, tenderness, guarding, rebound, rigid Extremities exam: Present: normal inspection, full ROM, normal capillary refill. Absent: tenderness, pedal edema, joint swelling, calf tenderness Back exam: Present: normal inspection Neurological exam: Present: alert, oriented X3, CN II-XII intact Psychiatric exam: Present: normal affect, normal mood Skin exam: Present: warm, dry, intact, pallor. Absent: rash Course Vital Signs 11/13/21 11/13/21 11/13/21 17:03 17:06 17:08 Pulse Rate 53 L Pulse Rate [ 50 L Crtts ] Respiratory 20 18 Rate Blood Pressure 85/50 85/50 O2 Sat by Pulse 97 Oximetry 11/13/21 11/13/21 11/13/21 17:11 17:30 18:00 Pulse Rate 53 L 53 L 53 L Pulse Rate [ Crtts ] Respiratory 16 20 18 Rate Blood Pressure 83/47 90/48 93/48 O2 Sat by Pulse 97 89 L 94 L Oximetry 11/13/21 18:30 Pulse Rate 51 L Pulse Rate [ Crtts ] Respiratory 20 Rate Blood Pressure 86/54 O2 Sat by Pulse 93 L Oximetry - Reevaluation(s) Reevaluation #1: 11/13/21 19:40 The patient did seem to respond to IV fluids. The heart rate has improved into the 50s blood pressure has gradually improved the. IV fluid replacement is being performed cautiously. Patient remains awake and alert no chest pain no other symptoms at this time Medical Decision Making - Medical Decision Making I did discuss the findings with the patient as well as with Dr. Jc and Dr. Quintero. Patient will be admitted to the telemetry unit with Dr. Quintero closely following. IV sodium bicarb drip is started. Cardiology will be consulted. Patient is awake alert oriented 4 family members at bedside. No pain at this time. Rhythm is still in the 50s atrial fibrillation is suspected additionally the patient does have a bicarb of 12 ohto infectious process is identified likely secondary to poor perfusion a viral depletion poor cardiac L put - Lab Data Result diagrams: 11/13/21 17:13 11/13/21 17:13 Lab Results 11/13/21 11/13/21 11/13/21 Range/Units 17:13 17:13 17:13 WBC 9.3 (3.8-10.6) k/uL RBC 3.16 L (3.80-5.40) m/uL Hgb 9.8 L (11.4-16.0) gm/dL Hct 30.4 L (34.0-46.0) % MCV 96.2 (80.0-100.0) fL MCH 31.0 (25.0-35.0) pg MCHC 32.2 (31.0-37.0) g/dL RDW 13.8 (11.5-15.5) % Plt Count 197 (150-450) k/uL MPV 9.7 Neutrophils % 69 % Lymphocytes % 24 % Monocytes % 3 % Eosinophils % 1 % Basophils % 0 % Neutrophils # 6.4 (1.3-7.7) k/uL Lymphocytes # 2.2 (1.0-4.8) k/uL Monocytes # 0.3 (0-1.0) k/uL Eosinophils # 0.1 (0-0.7) k/uL Basophils # 0.0 (0-0.2) k/uL PT 10.6 (9.0-12.0) sec INR 1.0 (<1.2) APTT 23.0 (22.0-30.0) sec Sodium 127 L (137-145) mmol/L Potassium 5.1 (3.5-5.1) mmol/L Chloride 101 (98-107) mmol/L Carbon Dioxide 12 L (22-30) mmol/L Anion Gap 14 mmol/L BUN 44 H (7-17) mg/dL Creatinine 2.26 H (0.52-1.04) mg/dL Est GFR (CKD-EPI)AfAm 23 (>60 ml/min/1.73 sqM) Est GFR (CKD-EPI)NonAf 20 (>60 ml/min/1.73 sqM) Glucose 216 H (74-99) mg/dL Calcium 8.3 L (8.4-10.2) mg/dL Magnesium 2.1 (1.6-2.3) mg/dL Total Bilirubin 0.6 (0.2-1.3) mg/dL AST 310 H (14-36) U/L ALT 156 H (4-34) U/L Alkaline Phosphatase 89 (38-126) U/L Troponin I (0.000-0.034) ng/mL Total Protein 5.2 L (6.3-8.2) g/dL Albumin 3.3 L (3.5-5.0) g/dL TSH 5.610 H (0.465-4.680) mIU/L Urine Color Urine Appearance (Clear) Urine pH (5.0-8.0) Ur Specific [place] (1.001-1.035) Urine Protein (Negative) Urine Glucose (UA) (Negative) Urine Ketones (Negative) Urine Blood (Negative) Urine Nitrite (Negative) Urine Bilirubin (Negative) Urine Urobilinogen (<2.0) mg/dL Ur Leukocyte Esterase (Negative) Urine RBC (0-5) /hpf Urine WBC (0-5) /hpf Ur Squamous Epith Cells (0-4) /hpf Urine Bacteria (None) /hpf Hyaline Casts (0-2) /lpf Urine Mucus (None) /hpf 11/13/21 11/13/21 Range/Units 17:13 18:52 WBC (3.8-10.6) k/uL RBC (3.80-5.40) m/uL Hgb (11.4-16.0) gm/dL Hct (34.0-46.0) % MCV (80.0-100.0) fL MCH (25.0-35.0) pg MCHC (31.0-37.0) g/dL RDW (11.5-15.5) % Plt Count (150-450) k/uL MPV Neutrophils % % Lymphocytes % % Monocytes % % Eosinophils % % Basophils % % Neutrophils # (1.3-7.7) k/uL Lymphocytes # (1.0-4.8) k/uL Monocytes # (0-1.0) k/uL Eosinophils # (0-0.7) k/uL Basophils # (0-0.2) k/uL PT (9.0-12.0) sec INR (<1.2) APTT (22.0-30.0) sec Sodium (137-145) mmol/L Potassium (3.5-5.1) mmol/L Chloride (98-107) mmol/L Carbon Dioxide (22-30) mmol/L Anion Gap mmol/L BUN (7-17) mg/dL Creatinine (0.52-1.04) mg/dL Est GFR (CKD-EPI)AfAm (>60 ml/min/1.73 sqM) Est GFR (CKD-EPI)NonAf (>60 ml/min/1.73 sqM) Glucose (74-99) mg/dL Calcium (8.4-10.2) mg/dL Magnesium (1.6-2.3) mg/dL Total Bilirubin (0.2-1.3) mg/dL AST (14-36) U/L ALT (4-34) U/L Alkaline Phosphatase (38-126) U/L Troponin I <0.012 (0.000-0.034) ng/mL Total Protein (6.3-8.2) g/dL Albumin (3.5-5.0) g/dL TSH (0.465-4.680) mIU/L Urine Color Dark Brown Urine Appearance Cloudy H (Clear) Urine pH 5.5 (5.0-8.0) Ur Specific [place] 1.021 (1.001-1.035) Urine Protein 2+ H (Negative) Urine Glucose (UA) Trace H (Negative) Urine Ketones Trace H (Negative) Urine Blood Negative (Negative) Urine Nitrite Negative (Negative) Urine Bilirubin 1+ H (Negative) Urine Urobilinogen 8.0 (<2.0) mg/dL Ur Leukocyte Esterase Small H (Negative) Urine RBC 10 H (0-5) /hpf Urine WBC 5 (0-5) /hpf Ur Squamous Epith Cells 1 (0-4) /hpf Urine Bacteria Few H (None) /hpf Hyaline Casts 90 H (0-2) /lpf Urine Mucus Few H (None) /hpf - Radiology Data Radiology results: report reviewed (Imaging reviewed as well as report evidence of increased cardiovascular markings CHF is considered), image reviewed Critical Care Time Critical Care Time: Yes Total Critical Care Time: 39 Critical Care Time: Critical care time includes initial presentation with history physical labs x- rays discussed with paramedics on arrival multiple reevaluation the patient response to therapy discuss with the patient family regarding findings discussed with multiple physicians admission orders and documentation of the above Disposition Clinical Impression: Near syncope, Bradycardia, Hypotensive episode, Acute kidney injury, Metabolic acidosis, Dehydration Disposition: ADMITTED IP TO THIS [facility] Condition: Fair Referrals: Kayden Trammell MD [Primary Care Provider] - 1-2 days Decision Date: 11/13/21 Decision Time: 19:30
[2021-11-13 17:24] LABS: Basophils % (A) 0 %; Eosinophils # (A) 0.1 k/uL (0-0.7); Eosinophils % (A) 1 %; HCT 30.4 % (34.0-46.0); HGB 9.8 gm/dL (11.4-16.0); Lymphocytes # (A) 2.2 k/uL (1.0-4.8); Lymphocytes % (A) 24 %; MCHC 32.2 g/dL (31.0-37.0); MCV 96.2 fL (80.0-100.0); Mean Platelet Volume 9.7; Monocytes # (A) 0.3 k/uL (0-1.0); Monocytes % (A) 3 %; Neutrophils # (A) 6.4 k/uL (1.3-7.7); Neutrophils % (A) 69 %; Platelet Count 197 k/uL (150-450); RBC 3.16 m/uL (3.80-5.40); RDW 13.8 % (11.5-15.5); WBC 9.3 k/uL (3.8-10.6)
[2021-11-13 17:32] LABS: Prothrombin Time 10.6 sec (9.0-12.0)
[2021-11-13 17:34] LABS: Albumin 3.3 g/dL (3.5-5.0); Calcium 8.3 mg/dL (8.4-10.2); Magnesium 2.1 mg/dL (1.6-2.3); Potassium 5.1 mmol/L (3.5-5.1); Total Bilirubin 0.6 mg/dL (0.2-1.3); Total Protein 5.2 g/dL (6.3-8.2)
--- NOTE | 2021-11-13 18:05 | XR ---
EXAMINATION TYPE: XR chest 1V portable DATE OF EXAM: 11/13/2021 COMPARISON: 08/25/2020 and 06/28/2021 HISTORY: Dysrhythmia TECHNIQUE: Single view FINDINGS: There is coarsening of the interstitial markings. There is slight blunting of the costophr enic angles. There are chest leads. There are no hilar masses. IMPRESSION: Mild increased interstitial markings compared to old exam. This could be mild pulmonary v ascular congestion. Mild heart failure is possible.
[2021-11-13] MEDS ORDERED: SODIUM CHLORIDE 0.9% 500 ML 500 ML IV STA (18:36)
[2021-11-13 19:13] LABS: Appearance,Urine Cloudy (Clear); Bacteria,Urine Few /hpf; Bilirubin,Urine 1+ (Negative); Blood,Urine Negative (Negative); Color,Urine Dark Brown; Glucose,Urine (UA) Trace (Negative); Hyaline Casts,Urine 90 /lpf (0-2); Ketones,Urine Trace (Negative); Leukocyte Esterase,Urine Small (Negative); Mucus,Urine Few /hpf; Nitrite,Urine Negative (Negative); PH, Urine 5.5 (5.0-8.0); Protein,Urine 2+ (Negative); RBC,Urine 10 /hpf (0-5); Specific Gravity,Urine 1.021 (1.001-1.035); Squamous Epithelial Cell,Urine 1 /hpf (0-4); WBC,Urine 5 /hpf (0-5)
[2021-11-13] MEDS ORDERED: NALOXONE 0.4 MG/ML 1 ML VIAL IV PRN (20:03)
[2021-11-13] MEDS: DEXTROSE 5% IN WATER 1,000 ML with SODIUM BICARB (1 MEQ/ML) 150 ML IV SCH (22:24)
[2021-11-13] MEDS: ALPRAZolam 0.5 MG TAB PO SCH (22:24)
[2021-11-13] MEDS: SODIUM CHLORIDE 0.9% 1,000 ML IV SCH (22:43)
--- NOTE | 2021-11-13 23:50 | P.HPIM ---
History of Present Illness H&P Date: 11/13/21 The patient is a 81-year-old female with a PMH of chronic kidney disease, hypertension, and hypothyroidism who presented to the emergency room with complaints of lightheadedness and fatigue. The patient reports that she has been experiencing worsening diarrhea over the past several days, and states that she believes she is dehydrated. Earlier today as she was trying to walk to the restroom, she became severely lightheaded and had to sit down. She denied losing consciousness. She reports being able to crawl to the phone at which time she called her family members activated EMS. Upon arrival at the scene, the patient was hypotensive with BP 76/36 and was given IV fluids, Zofran, and aspirin. The patient was also noted to be bradycardic with heart rate in the 40s. The patient however denied experiencing chest discomfort or shortness of breath. At time of interview, she reports mild diffuse abdominal discomfort as well as feeling thirsty. She reports a long-standing history of constipation with intermittent diarrhea. She was previously admitted to the hospital for diarrhea back in June 2021. Chest x-ray in the emergency room revealed possible mild pulmonary vascular congestion. EKG revealed A. fib with SVR with an incomplete right bundle branch block at 52 bpm. Laboratory evaluation was remarkable for hemoglobin of 9.8, sodium 127, CO2 12, BUN 44 (baseline 29) creatinine 2.26 (previously 1.6) AST 310, ALT 156, troponin less than 0.012 with UA not consistent with UTI. The patient's blood pressure at time of evaluation in the emergency room had improved to 104/73. Review of systems: Pertinent positives and negatives as discussed in HPI, a complete review of systems was performed and all other systems are negative. Physical examination: General: non toxic, no distress, appears at stated age, normal weight Derm: no unusual rashes/lesions, warm Head: atraumatic, normocephalic, symmetric Eyes: EOMI, no lid lag, anicteric sclera, pupils equal round reactive to light ENT: Nose and ears atraumatic Neck: No cervical lymphadenopathy, trachea midline, supple Mouth: no lip lesion, mucus membranes moist Cardiovascular: S1S2 reg, no murmur, positive dorsalis pedis pulse bilateral, no edema Lungs: CTA bilateral, no rhonchi, no rales, no accessory muscle use Abdominal: soft, nontender to palpation, no guarding Ext: muscle strength 5 out of 5 in all 4 extremities grossly, no gross muscle atrophy, no contractures, Neuro: CN II-XI grossly intact, no gross focal neuro deficits Psych: Alert, oriented, appropriate affect Assessment/plan Hypotension with lightheadedness, suspected secondary to dehydration from diarrhea -IV fluids -Fall precautions -F/u C. diff studies -NPO for now A. fib with SVR -Cardiology consult -Cardiac monitoring Acute kidney injury on chronic kidney disease -Nephrology consult -Continue IV fluids -Monitor BMP Abnormal LFTs -Likely due to severe dehydration with acute kidney injury and hypotension -Monitor for now DVT prophylaxis -Heparin subq The patient is admitted with an anticipated greater than 2 midnight stay for evaluation of hypotension CODE STATUS: No Code Discussed with: Patient Anticipated discharge date: 2-[address]: Home Past Medical History Past Medical History: GERD/Reflux, GI Bleed, Hypertension, Osteoarthritis (OA), Renal Disease, Syncope, Thyroid Disorder, Vascular Disorder Additional Past Medical History / Comment(s): CKD stage III, IBS, past constipation but diarrhea past few months, duodenal and antral ulcer/acute anemia with transfusion, chronic anemia, hiatal hernia, varicosities, L side sciatica, arthritis in neck and L hip, hypothyroid, sinus problems. History of Any Multi-Drug Resistant Organisms: None Reported Past Surgical History: Appendectomy, Cholecystectomy, Hysterectomy Additional Past Surgical History / Comment(s): D&C, EGD, colonoscopy, yovana cataracts Past Anesthesia/Blood Transfusion Reactions: No Reported Reaction Additional Past Anesthesia/Blood Transfusion Reaction / Comment(s): Pt has received blood in past without reaction. Past Psychological History: Anxiety, Depression Additional Psychological History / Comment(s): Pt resides alone. She is independent. Smoking Status: Never smoker Past Alcohol Use History: None Reported Past Drug Use History: None Reported - Past Family History Father Family Medical History: Cancer Additional Family Medical History / Comment(s): Father at the age of 57yrs from cancer which pt thinks was esophageal. Mother Family Medical History: Hypertension Additional Family Medical History / Comment(s): Mother lived to be 97yrs old. Medications and Allergies Home Medications Medication Instructions Recorded Confirmed Type ALPRAZolam [Xanax] 0.5 mg PO HS 10/13/17 11/13/21 History Levothyroxine Sodium [Synthroid] 75 mcg PO DAILY 10/13/17 11/13/21 History Verapamil HCl [Verapamil ER] 120 mg PO W/BRKFST 10/13/17 11/13/21 History Citalopram Hydrobromide [CeleXA] 40 mg PO W/BRKFST 08/25/20 11/13/21 History allopurinoL [Zyloprim] 100 mg PO DAILY@1200 08/25/20 11/13/21 History Ferrous Sulfate [Iron] 325 mg PO DAILY@1200 11/13/21 11/13/21 History Pantoprazole Sodium [Protonix] 40 mg PO BID-W/MEALS 11/13/21 11/13/21 History Allergies Allergy/AdvReac Type Severity Reaction Status Date / Time No Known Allergies Allergy Verified 11/13/21 19:43 Physical Exam Vitals: Vital Signs Temp Pulse Pulse Resp BP BP Pulse Ox 11/13/21 22:10 97.9 F 51 L 18 93/55 93 L 11/13/21 22:00 50 L 20 102/74 91 L 11/13/21 21:35 50 L 20 102/59 91 L 11/13/21 20:20 50 L 20 90/58 90 L 11/13/21 18:30 51 L 20 86/54 93 L 11/13/21 18:00 53 L 18 93/48 94 L 11/13/21 17:30 53 L 20 90/48 89 L 11/13/21 17:11 53 L 16 83/47 97 11/13/21 17:08 18 85/50 11/13/21 17:06 50 L 11/13/21 17:03 53 L 20 85/50 97 Intake and Output 11/13/21 11/13/21 11/14/21 14:59 22:59 06:59 Output Total 5 Balance -5 Output: Urine 5 Uretheral (Person) 5 Other: Voiding Method Indwelling Catheter # Bowel Movements 1 2 Weight 56.699 kg Results CBC & Chem 7: 11/13/21 17:13 11/13/21 17:13 Labs: Abnormal Lab Results - Last 24 Hours (Table) 11/13/21 11/13/21 11/13/21 Range/Units 17:13 17:13 18:52 RBC 3.16 L (3.80-5.40) m/uL Hgb 9.8 L (11.4-16.0) gm/dL Hct 30.4 L (34.0-46.0) % Sodium 127 L (137-145) mmol/L Carbon Dioxide 12 L (22-30) mmol/L BUN 44 H (7-17) mg/dL Creatinine 2.26 H (0.52-1.04) mg/dL Glucose 216 H (74-99) mg/dL Calcium 8.3 L (8.4-10.2) mg/dL AST 310 H (14-36) U/L ALT 156 H (4-34) U/L Total Protein 5.2 L (6.3-8.2) g/dL Albumin 3.3 L (3.5-5.0) g/dL TSH 5.610 H (0.465-4.680) mIU/L Urine Appearance Cloudy H (Clear) Urine Protein 2+ H (Negative) Urine Glucose (UA) Trace H (Negative) Urine Ketones Trace H (Negative) Urine Bilirubin 1+ H (Negative) Ur Leukocyte Esterase Small H (Negative) Urine RBC 10 H (0-5) /hpf Urine Bacteria Few H (None) /hpf Hyaline Casts 90 H (0-2) /lpf Urine Mucus Few H (None) /hpf Thrombosis Risk Factor Assmnt - Choose All That Apply Any of the Below Risk Factors Present?: Yes Each Factor Represents 1 point: Medical pt on bed rest Each Risk Factor Represents 3 Points: Age 75 years or older Other congenital or acquired thrombophilia - If yes, enter type in comment: No Thrombosis Risk Factor Assessment Total Risk Factor Score: 4 Thrombosis Risk Factor Assessment Level: Moderate Risk
[2021-11-14] MEDS: HEPARIN SODIUM,PORCINE/PF 5,000 UNIT/0.5 ML SYRINGE SQ SCH ×3 (00:12→16:31)
--- NOTE | 2021-11-14 02:34 | P.PN ---
Progress Note - Text Progress Note Date: 11/13/21 Advanced Care Planning: Diagnoses: Dehydration, acute kidney injury Discussion: Person(s) present and participating in discussion: Patient, grandson Summary: Discussed the patient's care in great detail. The patient reported that in light of her advanced age and her multiple chronic conditions, that she does not wish to undergo CPR or be placed on life support in the event of cardiac arrest. Patient reports that her had a prolonged dorantes with Alzheimer's and that she sees what advance medical conditions can do to person's quality of life. She reports that she does not wish to undergo life-support even for elective reasons. She would not like to have a feeding tube placed or be placed on dialysis etc.. She may consider certain forms of life support on a [id number] basis. The patient was AAOx3 and noted that she has previously filled out paperwork outlining her wishes. The grandson at the bedside noted that this was in line with her previous believes. Will make the patient a No Code as per her wishes. A total of 16 minutes of face to face time was spent discussing advanced care planning.
[2021-11-14] MEDS: SODIUM CHLORIDE 0.9% 1,000 ML IV SCH ×2 (05:11→07:45)
[2021-11-14] MEDS: LEVOTHYROXINE 75 MCG TAB PO SCH (06:24)
[2021-11-14] MEDS: PANTOPRAZOLE 40 MG TABLET PO SCH ×2 (06:24→16:31)
[2021-11-14] MEDS: CITALOPRAM HYDROBROMIDE 20 MG TAB PO SCH (06:24)
[2021-11-14] MEDS: DEXTROSE 5% IN WATER 1,000 ML with SODIUM BICARB (1 MEQ/ML) 150 ML IV SCH (07:50)
[2021-11-14 10:23] LABS: HCT 29.2 % (34.0-46.0); HGB 9.5 gm/dL (11.4-16.0); MCH 31.4 pg (25.0-35.0); MCHC 32.6 g/dL (31.0-37.0); MCV 96.2 fL (80.0-100.0); Mean Platelet Volume 8.8; Platelet Count 172 k/uL (150-450); RBC 3.03 m/uL (3.80-5.40); RDW 13.7 % (11.5-15.5); WBC 11.4 k/uL (3.8-10.6)
[2021-11-14 10:35] LABS: Albumin 3.1 g/dL (3.5-5.0); Total Protein 4.8 g/dL (6.3-8.2)
[2021-11-14 10:36] LABS: Calcium 7.5 mg/dL (8.4-10.2); Total Bilirubin 0.6 mg/dL (0.2-1.3)
[2021-11-14 10:51] LABS: T4, Free (Free Thyroxine) 1.22 ng/dL (0.78-2.19)
[2021-11-14] MEDS: FERROUS SULFATE 325 MG TAB PO SCH (11:15)
[2021-11-14] MEDS: allopurinoL 100 MG TAB PO SCH (11:15)
--- NOTE | 2021-11-14 12:26 | P.CNPUL ---
History of Present Illness Consult date: 11/14/21 History of present illness: 81-year-old female patient, presented emergency department because of dehydration, lightheadedness and fatigue.. She's been having diarrhea for the past 24-48 hours and she was getting progressively more dehydrated. She was trying to move around that she became lightheaded. No loss of consciousness. No abdominal pain. No emesis. Upon arrival to the emergency, the patient had a blood pressure 76/36. She was also bradycardic. I reviewed the EKGs and there is no clear indication for atrial fibrillation. She had sinus bradycardia. I confirmed this with cardiology. Note that the patient was taking verapamil with slow down her heart rate. The patient about blood work and she was in non-anion gap metabolic acidosis. The serum bicarbonate was 12. She is known to have chronic kidney disease and her baseline creatinine is at 1.6 and creatinine came up to 2.26 with a mean of 44. Troponin was 0.01. UA was negative. The patient started resuscitated with IV fluids and initially she was going to be transferred to the ICU following that she improved and she was sent to the medical floor. She is was resuscitated for now and she remains on a bicarb infusion at the rate of 100 mL an hour. Cardiology will be seeing her regarding this bradycardia. No clear indication for atrial fibrillation. She is on room air oxygen. Chest x-ray essentially negative for an acute process. No aspiration. She has received COVID 19 vaccination. COVID 19 status is not known. Review of Systems Constitutional: Reports fatigue, Reports poor appetite, Reports weakness Eyes: denies as per HPI, denies blurred vision, denies bulging eye, denies decreased vision, denies diplopia, denies discharge, denies dry eye, denies irritation, denies itching, denies pain, denies photophobia, denies loss of peripheral vision, denies loss of vision, denies tunnel vision/blind spots Ears: deny: decreased hearing, ear discharge, earache, tinnitus Ears, nose, mouth and throat: Reports as per HPI Breasts: absent: as per HPI, change in shape, gynecomastia, masses, nipple discharge, pain, skin changes, swelling Cardiovascular: Reports as per HPI Respiratory: Reports as per HPI Gastrointestinal: Reports diarrhea Genitourinary: Reports as per HPI Menstruation: Reports as per HPI Musculoskeletal: Reports as per HPI Musculoskeletal: absent: ankle pain, ankle stiffness, ankle swelling, as per HPI, elbow pain, elbow stiffness, elbow swelling, foot pain, foot stiffness, foot swelling, hand pain, hand stiffness, hand swelling, hip pain, hip stiffness, hip swelling, knee pain, knee stiffness, knee swelling, shoulder pain, shoulder stiffness, shoulder swelling, wrist pain, wrist stiffness, wrist swelling Integumentary: Reports as per HPI Neurological: Reports as per HPI Psychiatric: Reports as per HPI Endocrine: Reports as per HPI Hematologic/Lymphatic: Reports as per HPI Allergic/Immunologic: Reports as per HPI Past Medical History Past Medical History: GERD/Reflux, GI Bleed, Hypertension, Osteoarthritis (OA), Renal Disease, Syncope, Thyroid Disorder, Vascular Disorder Additional Past Medical History / Comment(s): CKD stage III, IBS, past constipation but diarrhea past few months, duodenal and antral ulcer/acute anemia with transfusion, chronic anemia, hiatal hernia, varicosities, L side sciatica, arthritis in neck and L hip, hypothyroid, sinus problems. History of Any Multi-Drug Resistant Organisms: None Reported Past Surgical History: Appendectomy, Cholecystectomy, Hysterectomy Additional Past Surgical History / Comment(s): D&C, EGD, colonoscopy, yovana cataracts Past Anesthesia/Blood Transfusion Reactions: No Reported Reaction Additional Past Anesthesia/Blood Transfusion Reaction / Comment(s): Pt has received blood in past without reaction. Past Psychological History: Anxiety, Depression Additional Psychological History / Comment(s): Pt resides alone. She is independent. Smoking Status: Never smoker Past Alcohol Use History: None Reported Past Drug Use History: None Reported - Past Family History Father Family Medical History: Cancer Additional Family Medical History / Comment(s): Father at the age of 57yrs from cancer which pt thinks was esophageal. Mother Family Medical History: Hypertension Additional Family Medical History / Comment(s): Mother lived to be 97yrs old. Medications and Allergies Home Medications Medication Instructions Recorded Confirmed Type ALPRAZolam [Xanax] 0.5 mg PO HS 10/13/17 11/13/21 History Levothyroxine Sodium [Synthroid] 75 mcg PO DAILY 10/13/17 11/13/21 History Verapamil HCl [Verapamil ER] 120 mg PO W/BRKFST 10/13/17 11/13/21 History Citalopram Hydrobromide [CeleXA] 40 mg PO W/BRKFST 08/25/20 11/13/21 History allopurinoL [Zyloprim] 100 mg PO DAILY@1200 08/25/20 11/13/21 History Ferrous Sulfate [Iron] 325 mg PO DAILY@1200 11/13/21 11/13/21 History Pantoprazole Sodium [Protonix] 40 mg PO BID-W/MEALS 11/13/21 11/13/21 History Allergies Allergy/AdvReac Type Severity Reaction Status Date / Time No Known Allergies Allergy Verified 11/13/21 19:43 Physical Exam Vitals: Vital Signs Temp Pulse Pulse Resp BP BP Pulse Ox 11/14/21 07:53 99.6 F 81 16 150/62 91 L 11/14/21 07:46 81 11/14/21 04:00 98.7 F 57 L 16 163/66 94 L 11/13/21 22:10 97.9 F 51 L 18 93/55 93 L 11/13/21 22:00 50 L 20 102/74 91 L 11/13/21 21:35 50 L 20 102/59 91 L 11/13/21 20:20 50 L 20 90/58 90 L 11/13/21 18:30 51 L 20 86/54 93 L 11/13/21 18:00 53 L 18 93/48 94 L 11/13/21 17:30 53 L 20 90/48 89 L 11/13/21 17:11 53 L 16 83/47 97 11/13/21 17:08 18 85/50 11/13/21 17:06 50 L 11/13/21 17:03 53 L 20 85/50 97 Intake and Output 11/13/21 11/14/21 11/14/21 22:59 06:59 14:59 Intake Total 118 Output Total 5 200 Balance -5 -200 118 Intake: Oral 118 Output: Urine 5 200 Uretheral (Person) 5 Other: Voiding Method Indwelling Catheter Indwelling Catheter Indwelling Catheter # Bowel Movements 1 2 Weight 56.699 kg General: non toxic, no distress, appears at stated age, normal weight, room air oxygen with a body mass index of 24.4 Derm: no unusual rashes/lesions, warm Head: atraumatic, normocephalic, symmetric Eyes: EOMI, no lid lag, anicteric sclera, pupils equal round reactive to light ENT: Nose and ears atraumatic Neck: No cervical lymphadenopathy, trachea midline, supple Mouth: no lip lesion, mucus membranes moist Cardiovascular: S1S2 reg, no murmur, positive dorsalis pedis pulse bilateral, no edema Lungs: CTA bilateral, no rhonchi, no rales, no accessory muscle use Abdominal: soft, nontender to palpation, no guarding Ext: muscle strength 5 out of 5 in all 4 extremities grossly, no gross muscle atrophy, no contractures, Neuro: CN II-XI grossly intact, no gross focal neuro deficits Psych: Alert, oriented, appropriate affect Results - Laboratory Findings CBC and BMP: 11/14/21 10:03 11/14/21 10:03 PT/INR, D-dimer PT 10.6 sec (9.0-12.0) 11/13/21 17:13 INR 1.0 (<1.2) 11/13/21 17:13 Abnormal lab findings: Abnormal Labs 11/13/21 11/13/21 11/13/21 17:13 17:13 18:52 WBC RBC 3.16 L Hgb 9.8 L Hct 30.4 L Sodium 127 L Chloride Carbon Dioxide 12 L BUN 44 H Creatinine 2.26 H Glucose 216 H Plasma Lactic Acid Carlos Calcium 8.3 L AST 310 H ALT 156 H Total Protein 5.2 L Albumin 3.3 L TSH 5.610 H Urine Appearance Cloudy H Urine Protein 2+ H Urine Glucose (UA) Trace H Urine Ketones Trace H Urine Bilirubin 1+ H Ur Leukocyte Esterase Small H Urine RBC 10 H Urine Bacteria Few H Hyaline Casts 90 H Urine Mucus Few H 11/14/21 11/14/21 11/14/21 00:10 04:32 10:03 WBC 11.4 H RBC 3.03 L Hgb 9.5 L Hct 29.2 L Sodium Chloride Carbon Dioxide BUN Creatinine Glucose Plasma Lactic Acid Carlos 3.2 H* 2.4 H* Calcium AST ALT Total Protein Albumin TSH Urine Appearance Urine Protein Urine Glucose (UA) Urine Ketones Urine Bilirubin Ur Leukocyte Esterase Urine RBC Urine Bacteria Hyaline Casts Urine Mucus 11/14/21 10:03 WBC RBC Hgb Hct Sodium 125 L Chloride 96 L Carbon Dioxide 21 L BUN 47 H Creatinine 2.11 H Glucose 128 H Plasma Lactic Acid Carlos Calcium 7.5 L AST 283 H ALT 201 H Total Protein 4.8 L Albumin 3.1 L TSH Urine Appearance Urine Protein Urine Glucose (UA) Urine Ketones Urine Bilirubin Ur Leukocyte Esterase Urine RBC Urine Bacteria Hyaline Casts Urine Mucus - Diagnostic Findings Chest x-ray: image reviewed Assessment and Plan Plan: Acute dehydration secondary to diarrhea, improved Acute non-anion gap metabolic acidosis secondary to diarrhea, treated with bicarb infusion and the bicarb that is closing Diarrhea on that investigation. Stool for C. diff will be evaluated.: COVID 19 needs to be checked. Bradycardia, likely drug-induced Acute on chronic stage III chronic kidney disease Irritable bowel syndrome History of constipation Duodenal and antral ulcer with a previous history of bleed requiring transfusion History of sciatica Hypothyroidism Hypertension Acid reflux Plan Continue the bicarb infusion for another 24 hours Check stool for C. diff Check COVID 19 by PCR Monitor electrolytes Cardiology consultation Pulmonary status is stable Patient is on room air oxygen No need to come in to the ICU at this point
--- NOTE | 2021-11-14 12:57 | P.CRDCN ---
History of Present Illness Consult date: 11/14/21 Requesting physician: Tea Jc Reason for Consult (text): Atrial fibrillation, hypotensive episode Chief complaint: weakness, lightheaded History of present illness: This is a pleasant 81-year-old female patient with history of hypertension does not follow regularly with the vice president medical affairs denies any history of cardiac issues. Denies history of diabetes or hyperlipidemia. Presented to the emergency department via EMS after developing some significant weakness and dizziness at home. She apparently was on her couch felt as if she had to go to the bathroom to have a bowel movement and when she got up she lowered herself to the floor because she was quite weak. She had been having some diarrhea at home which she has quite frequently. Upon arrival it is noted in the ER notes that the patient's blood pressure was in the 70s systolic with a heart rate in the 20s. There was question of atrial fibrillation but upon review of the EKG it appears the patient had a AV block she is currently maintaining sinus mechanism. Verapamil on hold. TSH is elevated and free T4 is pending. Labs on admission showed evidence of acute kidney injury with a creatinine of 2.26 with previous 1.65. Troponins negative 3. She does have a history of chronic kidney disease, duodenal antral ulcer which were showed to be healed in October 2020 and history of anemia. Upon examination the patient is resting comfortably in bed. She is feeling a bit better but continues to feel weak. She denies any shortness of breath, dizziness or chest pain. She has no orthopnea, PND or edema. Past Medical History Past Medical History: GERD/Reflux, GI Bleed, Hypertension, Osteoarthritis (OA), Renal Disease, Syncope, Thyroid Disorder, Vascular Disorder Additional Past Medical History / Comment(s): CKD stage III, IBS, past constipat ion but diarrhea past few months, duodenal and antral ulcer/acute anemia with transfusion, chronic anemia, hiatal hernia, varicosities, L side sciatica, arthritis in neck and L hip, hypothyroid, sinus problems. History of Any Multi-Drug Resistant Organisms: None Reported Past Surgical History: Appendectomy, Cholecystectomy, Hysterectomy Additional Past Surgical History / Comment(s): D&C, EGD, colonoscopy, yovana cataracts Past Anesthesia/Blood Transfusion Reactions: No Reported Reaction Additional Past Anesthesia/Blood Transfusion Reaction / Comment(s): Pt has received blood in past without reaction. Past Psychological History: Anxiety, Depression Additional Psychological History / Comment(s): Pt resides alone. She is independent. Smoking Status: Never smoker Past Alcohol Use History: None Reported Past Drug Use History: None Reported - Past Family History Father Family Medical History: Cancer Additional Family Medical History / Comment(s): Father at the age of 57yrs from cancer which pt thinks was esophageal. Mother Family Medical History: Hypertension Additional Family Medical History / Comment(s): Mother lived to be 97yrs old. Medications and Allergies Home Medications Medication Instructions Recorded Confirmed Type ALPRAZolam [Xanax] 0.5 mg PO HS 10/13/17 11/13/21 History Levothyroxine Sodium [Synthroid] 75 mcg PO DAILY 10/13/17 11/13/21 History Verapamil HCl [Verapamil ER] 120 mg PO W/BRKFST 10/13/17 11/13/21 History Citalopram Hydrobromide [CeleXA] 40 mg PO W/BRKFST 08/25/20 11/13/21 History allopurinoL [Zyloprim] 100 mg PO DAILY@1200 08/25/20 11/13/21 History Ferrous Sulfate [Iron] 325 mg PO DAILY@1200 11/13/21 11/13/21 History Pantoprazole Sodium [Protonix] 40 mg PO BID-W/MEALS 11/13/21 11/13/21 History Allergies Allergy/AdvReac Type Severity Reaction Status Date / Time No Known Allergies Allergy Verified 11/13/21 19:43 Physical Exam Vitals: Vital Signs Temp Pulse Pulse Resp BP BP Pulse Ox 11/14/21 11:37 90 18 150/66 90 L 11/14/21 07:53 99.6 F 81 16 150/62 91 L 11/14/21 07:46 81 11/14/21 04:00 98.7 F 57 L 16 163/66 94 L 11/13/21 22:10 97.9 F 51 L 18 93/55 93 L 11/13/21 22:00 50 L 20 102/74 91 L 11/13/21 21:35 50 L 20 102/59 91 L 11/13/21 20:20 50 L 20 90/58 90 L 11/13/21 18:30 51 L 20 86/54 93 L 11/13/21 18:00 53 L 18 93/48 94 L 11/13/21 17:30 53 L 20 90/48 89 L 11/13/21 17:11 53 L 16 83/47 97 11/13/21 17:08 18 85/50 11/13/21 17:06 50 L 11/13/21 17:03 53 L 20 85/50 97 Intake and Output 11/13/21 11/14/21 11/14/21 22:59 06:59 14:59 Intake Total 118 Output Total 5 200 Balance -5 -200 118 Intake: Oral 118 Output: Urine 5 200 Uretheral (Person) 5 Other: Voiding Method Indwelling Catheter Indwelling Catheter Indwelling Catheter # Bowel Movements 1 2 Weight 56.699 kg PHYSICAL EXAMINATION: This is a 81-year-old female in no apparent distress at the time of my examination. VITAL SIGNS: Blood pressure 150/62, heart rate 81, respirations 16, temp 99.6F. Patient is 91% on room air. HEENT: Head is atraumatic, normocephalic. Pupils are equal, round. Sclerae anicteric. Conjunctivae are clear. Mucous membranes of the mouth are moist. Neck is supple. There is no elevated jugular venous pressure. No carotid bruit is heard. CHEST EXAMINATION: Clear to auscultation bilaterally. No wheezes rales or rhonchi. Respirations even and nonlabored. HEART EXAMINATION: Heart regular, positive S1 and S2. No S3. No S4. Systolic ejection murmur. ABDOMEN: Soft, nontender. Bowel sounds are heard. No organomegaly noted. EXTREMITIES: 2+ peripheral pulses with no evidence of peripheral edema and no calf tenderness noted. NEUROLOGIC EXAMINATION: Patient is awake, alert and oriented x3. Results 11/14/21 10:03 11/14/21 10:03 Cardiac Enzymes 11/13/21 11/13/21 11/13/21 Range/Units 17:13 17:13 20:43 AST 310 H (14-36) U/L Troponin I <0.012 <0.012 (0.000-0.034) ng/mL 11/14/21 11/14/21 Range/Units 00:10 10:03 AST 283 H (14-36) U/L Troponin I <0.012 (0.000-0.034) ng/mL Coagulation 11/13/21 Range/Units 17:13 PT 10.6 (9.0-12.0) sec APTT 23.0 (22.0-30.0) sec CBC 11/13/21 11/14/21 Range/Units 17:13 10:03 WBC 9.3 11.4 H (3.8-10.6) k/uL RBC 3.16 L 3.03 L (3.80-5.40) m/uL Hgb 9.8 L 9.5 L (11.4-16.0) gm/dL Hct 30.4 L 29.2 L (34.0-46.0) % Plt Count 197 172 (150-450) k/uL Comprehensive Metabolic Panel 11/13/21 11/14/21 Range/Units 17:13 10:03 Sodium 127 L 125 L (137-145) mmol/L Potassium 5.1 5.0 (3.5-5.1) mmol/L Chloride 101 96 L (98-107) mmol/L Carbon Dioxide 12 L 21 L (22-30) mmol/L BUN 44 H 47 H (7-17) mg/dL Creatinine 2.26 H 2.11 H (0.52-1.04) mg/dL Glucose 216 H 128 H (74-99) mg/dL Calcium 8.3 L 7.5 L (8.4-10.2) mg/dL AST 310 H 283 H (14-36) U/L ALT 156 H 201 H (4-34) U/L Alkaline Phosphatase 89 80 (38-126) U/L Total Protein 5.2 L 4.8 L (6.3-8.2) g/dL Albumin 3.3 L 3.1 L (3.5-5.0) g/dL Current Medications Generic Name Dose Route Start Last Admin Trade Name Freq PRN Reason Stop Dose Admin Acetaminophen 650 mg 11/13/21 20:03 Acetaminophen Tab 325 Mg Tab PO Q6HR PRN Mild Pain or Fever > 100.5 Allopurinol 100 mg 11/14/21 12:00 11/14/21 11:15 Allopurinol 100 Mg Tab PO 100 mg DAILY@1200 SHARMIN Administration Alprazolam 0.5 mg 11/13/21 21:00 11/13/21 22:24 Alprazolam 0.5 Mg Tab PO 0.5 mg HS SHARMIN Administration Citalopram Hydrobromide 40 mg 11/14/21 07:30 11/14/21 06:24 Citalopram Hydrobromide 20 Mg Tab PO 40 mg W/BRKFST SHARMIN Administration Ferrous Sulfate 325 mg 11/14/21 12:00 11/14/21 11:15 Ferrous Sulfate 325 Mg Tab PO 325 mg DAILY@1200 SHARMIN Administration Heparin Sodium (Porcine) 5,000 unit 11/14/21 00:00 11/14/21 07:50 Heparin Sodium,Porcine/Pf 5,000 Unit/0.5 Ml Syringe SQ 5,000 unit Q8HR SHARMIN Administration Sodium Bicarbonate 150 ml/ 1,150 mls @ 100 mls/hr 11/13/21 19:30 11/14/21 07:50 Dextrose/Water IV 100 mls/hr .[id number] SHARMIN Administration Sodium Chloride 1,000 mls @ 130 mls/hr 11/13/21 20:15 11/14/21 07:45 Saline 0.9% IV Not Given .[id number] SHARMIN Levothyroxine Sodium 75 mcg 11/14/21 06:30 11/14/21 06:24 Levothyroxine 75 Mcg Tab PO 75 mcg DAILY@0630 SHARMIN Administration Naloxone HCl 0.2 mg 11/13/21 20:03 Naloxone 0.4 Mg/Ml 1 Ml Vial IV Q2M PRN Opioid Reversal Pantoprazole Sodium 40 mg 11/14/21 07:30 11/14/21 06:24 Pantoprazole 40 Mg Tablet PO 40 mg BID-W/MEALS SHARMIN Administration Intake and Output 11/13/21 11/14/21 11/14/21 22:59 06:59 14:59 Intake Total 118 Output Total 5 200 Balance -5 -200 118 Intake: Oral 118 Output: Urine 5 200 Uretheral (Person) 5 Other: Voiding Method Indwelling Catheter Indwelling Catheter Indwelling Catheter # Bowel Movements 1 2 Weight 56.699 kg 11/14/21 10:03 11/14/21 10:03 Assessment and Plan Assessment: #1 symptoms of weakness and lightheadedness in the setting of hypotension and bradycardia #2 dehydration #3 chronic kidney disease with acute kidney injury #4 History of duodenal and antral ulcers, resolved #5 chronic diarrhea with intermittent constipation after use of Immodium Plan: From vice president medical affairs perspective we will obtain a 2-D echo with Doppler study to assess cardiac structure and function. Awaiting free T4 results. Continue to h old verapamil. We will continue to follow the patient and provide further recommendations accordingly. TANK WASHER note has been reviewed, I agree with a documented findings and plan of care. Patient was seen and examined.
--- NOTE | 2021-11-14 13:43 | P.PN ---
Subjective Progress Note Date: 11/14/21 Hospital course: Patient is a very pleasant 81-year-old female with a past medical history of chronic kidney disease, hypertension, and hypothyroidism. She presented to the emergency room on 11/13/21 with complaints of lightheadedness and fatigue. The patient reports that she has been experiencing worsening diarrhea over the past several days, and states that she believes she is dehydrated. Earlier today as she was trying to walk to the restroom, she became severely lightheaded and had to sit down. She denied losing having any changes in her vision or hearing and denied having any loss of consciousness. She reports being able to crawl to the phone at which time she called her family members activated EMS. Upon EMS arrival at the scene, the patient was reportedly found to be hypotensive with BP 76/36 and was given IV fluids, Zofran, and aspirin. The patient was also reported to be bradycardic with heart rate in the 40s. She denied ever experie ncing any chest pain, palpitations, shortness of breath, or experiencing any numbness/tingling/weakness in her extremities.. Patient underwent full evaluation in the emergency department. Initial EKG was completed revealing sinus bradycardia with occasional PAC at 52 bpm with an incomplete right bundle- branch, there were no T-wave or ST abnormalities showing no signs of acute ischemia. Repeat EKG revealed sinus bradycardia at 59 bpm with incomplete right bundle branch block. Chest x-ray completed showing mild pulmonary vascular congestion. CBC revealing normocytic normochromic anemia with hemoglobin stable at 9.8 which is at baseline level. Coags normal findings. CMP revealing hyponatremia with sodium of 127, and non-anion gap metabolic acidosis with lactate of 3.2, chloride of 101, carbon dioxide of 12, an anion gap of 14, acute on chronic kidney injury with BUN of 44, creatinine 2.26, and GFR of 20 with baseline creatinine of 1.6, Elevated renal function with AST of 310 and ALT of 156. Troponin was negative at less than 0.012. Urinalysis cloudy and dark brown in color positive for protein, ketones, and bilirubin but negative for infection. C. diff negative and Covid PCR also negative. Patient received a 1 L bolus of 0.9% normal saline and was started on sodium bicarb infusion. Patient admitted under our services with consultation to cardiology, intensive care, and nephrology. Physical exam: Patient seen and fully evaluated at the bedside. She reports feeling significantly better than she did upon arrival and states having significant improvement in diarrhea. Patient does have a Person that was placed in the emergency department and per RN the patient has been oliguric with only 200 mL of output since arrival to our facility despite IV fluid hydration. Daily labs reviewed revealing worsening hyponatremia with sodium decreasing to 125 renal function showing BUN of 47, creatinine of 2.11, and GFR of 122. Non-anion gap metabolic acidosis resolved with repeat lactate of 2.0, chloride 96, and CO2 of 21. Discussed renal function and worsening hyponatremia with lvn lpn and he recommended renal ultrasound and decreasing bicarb drip to 50 mL's per hour and a fluid restriction of [address] at this time. Orders also placed for uric acid, serum osmolality, urine osmolality, and serum sodium. Updated RN on new orders and importance of maintaining strict I's and O's. Patient currently denies having any headache, lightheadedness, dizziness, chest pain, palpitations, shortness of breath, abdominal pain or discomfort, experiencing any nausea, vomiting, or having any numbness/tingling/weakness in her extremities. Vital signs reviewed and stable. General: Nontoxic, no distress and appears stated age. Derm: Skin warm and dry, normal coloration for ethnicity. Head: Atraumatic, normocephalic and symmetric. Eyes: EOMs intact, no lid lag, and anicteric sclera Mouth: no lip lesions, mucus membranes moist Cardiovascular: regular rate and rhythm with normal S1S2, Systolic murmur, posi tive posterior tibial pulses bilaterally, and cap refill < 2 seconds. Lungs: Respirations even, regular, and unlabored on room air. Lungs CTA bilaterally, no rhonchi, no rales, no wheezing, and no accessory muscle usage. Abdominal: soft, nontender to palpation, no guarding, no appreciable organom egaly Ext: ROM intact. No gross muscle atrophy, no edema, no contractures Neuro: Speech clear, face symmetrical and CN II-XII grossly intact with no noted focal neuro deficits Psych: Alert and oriented to person, place, time, and situation. Appropriate and pleasant affect. Assessment and Plan of Care: Hypotension with lightheadedness, suspected secondary to dehydration from diarrhea Acute non-anion gap metabolic acidosis resulting from diarrhea, improving Hyponatremia Acute kidney injury on stage III chronic kidney disease Symptomatic bradycardia, resolved Dehydration Diarrhea, patient reports significant improvement Elevated LFTs, likely secondary to dehydration with reports of diarrhea and hypotension -Telemetry monitoring -Cardiology following, appreciate further recommendations. -Nephrology consulted, recommending decreased bicarb drip to 50 mL's per hour and fluid restriction of 1200 mL -Continue bicarb infusion at 50 mL's per hour pending further recommendations from nephrology. -TSH with free T4, , urine osmolality, urine sodium, serum osmolality, and uric acid. -Continued close monitoring of renal function, liver enzymes and sodium levels with repeat a.m. labs. -Continue heart healthy diet with fluid restriction of 1200 mL -Ultrasound kidney/renal and bladder to be completed secondary to oliguria. -LFTs improving with rehydration and resolution of acidosis, C. diff negative. CODE STATUS: No Code DVT prophylaxis: Heparin Discussed with: Patient and RN Anticipated discharge date: 2-[address]: Home A total of 40 minutes was spent on the care of this complex patient more than 50% of the time was spent in counseling and care coordination. Objective - Vital Signs Vital signs: Vital Signs Temp 99.6 F 11/14/21 07:53 Pulse 81 11/14/21 07:53 Resp 16 11/14/21 07:53 BP 150/62 11/14/21 07:53 Pulse Ox 91 L 11/14/21 07:53 FiO2 Intake & Output 11/13/21 11/14/21 11/14/21 18:59 06:59 18:59 Intake Total 118 Output Total 5 200 Balance -5 -200 118 Weight 56.699 kg 56.699 kg Intake: Oral 118 Output: Urine 5 200 Uretheral (Person) 5 Other: Voiding Method Indwelling Catheter # Bowel Movements 2 - Labs CBC & Chem 7: 11/14/21 10:03 11/14/21 10:03 Labs: Abnormal Lab Results - Last 24 Hours (Table) 11/13/21 11/13/21 11/13/21 Range/Units 17:13 17:13 18:52 RBC 3.16 L (3.80-5.40) m/uL Hgb 9.8 L (11.4-16.0) gm/dL Hct 30.4 L (34.0-46.0) % Sodium 127 L (137-145) mmol/L Carbon Dioxide 12 L (22-30) mmol/L BUN 44 H (7-17) mg/dL Creatinine 2.26 H (0.52-1.04) mg/dL Glucose 216 H (74-99) mg/dL Plasma Lactic Acid Carlos (0.7-2.0) mmol/L Calcium 8.3 L (8.4-10.2) mg/dL AST 310 H (14-36) U/L ALT 156 H (4-34) U/L Total Protein 5.2 L (6.3-8.2) g/dL Albumin 3.3 L (3.5-5.0) g/dL TSH 5.610 H (0.465-4.680) mIU/L Urine Appearance Cloudy H (Clear) Urine Protein 2+ H (Negative) Urine Glucose (UA) Trace H (Negative) Urine Ketones Trace H (Negative) Urine Bilirubin 1+ H (Negative) Ur Leukocyte Esterase Small H (Negative) Urine RBC 10 H (0-5) /hpf Urine Bacteria Few H (None) /hpf Hyaline Casts 90 H (0-2) /lpf Urine Mucus Few H (None) /hpf 11/14/21 11/14/21 Range/Units 00:10 04:32 RBC (3.80-5.40) m/uL Hgb (11.4-16.0) gm/dL Hct (34.0-46.0) % Sodium (137-145) mmol/L Carbon Dioxide (22-30) mmol/L BUN (7-17) mg/dL Creatinine (0.52-1.04) mg/dL Glucose (74-99) mg/dL Plasma Lactic Acid Carlos 3.2 H* 2.4 H* (0.7-2.0) mmol/L Calcium (8.4-10.2) mg/dL AST (14-36) U/L ALT (4-34) U/L Total Protein (6.3-8.2) g/dL Albumin (3.5-5.0) g/dL TSH (0.465-4.680) mIU/L Urine Appearance (Clear) Urine Protein (Negative) Urine Glucose (UA) (Negative) Urine Ketones (Negative) Urine Bilirubin (Negative) Ur Leukocyte Esterase (Negative) Urine RBC (0-5) /hpf Urine Bacteria (None) /hpf Hyaline Casts (0-2) /lpf Urine Mucus (None) /hpf
[2021-11-14] MEDS ORDERED: SODIUM CHLORIDE 0.9% 1,000 ML IV SCH (13:45)
[2021-11-14 14:06] LABS: Uric Acid 3.9 mg/dL (3.7-7.4)
--- NOTE | 2021-11-14 14:46 | US ---
EXAMINATION TYPE: US kidneys/renal and bladder DATE OF EXAM: 11/14/2021 COMPARISON: 10/30/2020 CLINICAL HISTORY: MACI on CKD with Oliguria. EXAM MEASUREMENTS: Right Kidney: 7.4 x 3.2 x 3.3 cm Left Kidney: 8.5 x 2.8 x 4.0 cm Right Kidney: atrophied with cortical thinning, somewhat limited visualization due to overlying bowel gas Left Kidney: atrophied with cortical thinning, somewhat limited visualization due to overlying bowel gas Bladder: Person There is no evidence for hydronephrosis at this point in time. No nephrolithiasis is seen. No edgard s are identified. The urinary bladder is anechoic. Bilateral ureteral jets are seen. IMPRESSION: 1. Marked atrophy of the right kidney with marked cortical thinning but no right renal mass, hydronep hrosis or renal calculus. 2. Mild atrophy of the left kidney but no significant cortical thinning. No left renal mass, hydronep hrosis or calculus.
[2021-11-14] MEDS: ALPRAZolam 0.5 MG TAB PO SCH (20:20)
[2021-11-15] MEDS: HEPARIN SODIUM,PORCINE/PF 5,000 UNIT/0.5 ML SYRINGE SQ SCH ×4 (00:02→23:22)
[2021-11-15] MEDS: DEXTROSE 5% IN WATER 1,000 ML with SODIUM BICARB (1 MEQ/ML) 150 ML IV SCH (01:32)
[2021-11-15] MEDS: CITALOPRAM HYDROBROMIDE 20 MG TAB PO SCH (06:42)
[2021-11-15] MEDS: LEVOTHYROXINE 75 MCG TAB PO SCH (06:42)
[2021-11-15] MEDS: PANTOPRAZOLE 40 MG TABLET PO SCH ×2 (06:42→17:20)
[2021-11-15] MEDS ORDERED: VANCOMYCIN IV PER PHARMACY 1 EACH MISC MISCELLANE PRN (08:45)
[2021-11-15] MEDS ORDERED: CEFEPIME 2 GM in SODIUM CHLORIDE 0.9% 100 ML IVPB SCH (09:00)
--- NOTE | 2021-11-15 09:21 | P.PN ---
Subjective Progress Note Date: 11/15/21 Hospital course: Patient is a very pleasant 81-year-old female with a past medical history of chronic kidney disease, hypertension, and hypothyroidism. She presented to the emergency room on 11/13/21 with complaints of lightheadedness and fatigue. The patient reports that she has been experiencing worsening diarrhea over the past several days, and states that she believes she is dehydrated. Earlier today as she was trying to walk to the restroom, she became severely lightheaded and had to sit down. She denied losing having any changes in her vision or hearing and denied having any loss of consciousness. She reports being able to crawl to the phone at which time she called her family members activated EMS. Upon EMS arrival at the scene, the patient was reportedly found to be hypotensive with BP 76/36 and was given IV fluids, Zofran, and aspirin. The patient was also reported to be bradycardic with heart rate in the 40s. She denied ever experie ncing any chest pain, palpitations, shortness of breath, or experiencing any numbness/tingling/weakness in her extremities.. Patient underwent full evaluation in the emergency department. Initial EKG was completed revealing sinus bradycardia with occasional PAC at 52 bpm with an incomplete right bundle- branch, there were no T-wave or ST abnormalities showing no signs of acute ischemia. Repeat EKG revealed sinus bradycardia at 59 bpm with incomplete right bundle branch block. Chest x-ray completed showing mild pulmonary vascular congestion. CBC revealing normocytic normochromic anemia with hemoglobin stable at 9.8 which is at baseline level. Coags normal findings. CMP revealing hyponatremia with sodium of 127, and non-anion gap metabolic acidosis with lactate of 3.2, chloride of 101, carbon dioxide of 12, an anion gap of 14, acute on chronic kidney injury with BUN of 44, creatinine 2.26, and GFR of 20 with baseline creatinine of 1.6, Elevated renal function with AST of 310 and ALT of 156. Troponin was negative at less than 0.012. Urinalysis cloudy and dark brown in color positive for protein, ketones, and bilirubin but negative for infection. C. diff negative and Covid PCR also negative. Patient received a 1 L bolus of 0.9% normal saline and was started on sodium bicarb infusion. Patient admitted under our services with consultation to cardiology, intensive care, and nephrology. Ultrasound kidney/renal and bladder revealed marked atrophy of the right kidney with marked cortical thinning but no renal mass hydronephrosis or calculus as well as mild atrophy of left kidney without significant cortical thinning and again no mass, hydronephrosis or calculus. Overnight on 11/14/21, patient spiked an isolated fever of 100.6F. She was started on empiric antibiotics with vancomycin, cefepime, and Flagyl pending further results. Orders placed at this time for cultures, urinalysis, and repeat chest x-ray. Physical exam: Patient seen and fully evaluated at bedside this morning. It was noted that overnight patient spiked an isolated fever of 100.6F. Secondary to concerns of possible underlying sepsis or aspiration, patient was started on empiric antibiotics with vancomycin, cefepime, and Flagyl. Orders placed for blood cultures, lactate, repeat urinalysis with culture, and chest x-ray. Patient reports that she has not had any episodes of diarrhea and greater than 24 hours and denies currently experiencing any abdominal pain or discomfort. If diarrhea returns or patient develops abdominal pain/discomfort additional orders will be placed such as CT abdomen. Metabolic acidosis resolved. Hyponatremia slowly improving with current sodium 126. Renal function also improving with BUN 37, creatinine 1.78, and GFR of 26. Hemoglobin stable at 9.1. Nephrology and skin care instructor/oncology pharmacist continue to follow along with patient at this time. Patient currently denies having any complaints including headache, lightheadedness, dizziness, chest pain, palpitations, shortness of breath, abdominal pain, nausea, vomiting, or experiencing any further episodes of diarrhea. Patient to continue with bicarb infusion as well as empiric IV antibiotic therapy pending further results. Vital signs reviewed and stable. General: Nontoxic, no distress and appears stated age. Derm: Skin warm and dry, normal coloration for ethnicity. Head: Atraumatic, normocephalic and symmetric. Eyes: EOMs intact, no lid lag, and anicteric sclera Mouth: no lip lesions, mucus membranes moist Cardiovascular: regular rate and rhythm with normal S1S2, Systolic murmur, positive posterior tibial pulses bilaterally, and cap refill < 2 seconds. Lungs: Respirations even, regular, and unlabored on room air. Lungs CTA bilaterally, no rhonchi, no rales, no wheezing, and no accessory muscle usage. Abdominal: soft, nontender to palpation, no guarding, no appreciable organomegaly Ext: ROM intact. No gross muscle atrophy, mild 1+ pitting edema, no contractures Neuro: Speech clear, face symmetrical and CN II-XII grossly intact with no noted focal neuro deficits Psych: Alert and oriented to person, place, time, and situation. Appropriate and pleasant affect. Assessment and Plan of Care: Severe Hypotension with lightheadedness, suspected secondary to dehydration from diarrhea Acute non-anion gap metabolic acidosis resulting from diarrhea, resolved. Hyponatremia, improving. Acute kidney injury on stage III chronic kidney disease, improving. Symptomatic bradycardia, resolved Dehydration Diarrhea, resolved. Elevated LFTs, secondary to dehydration with reports of diarrhea and hypotension. Improved. Sepsis, isolated fever of unknown origin initially presented hypotensive, bradycardic with positive lactate of 3.2. Patient later spiked isolated temp erature 100.6F. -Telemetry monitoring -Cardiology following, appreciate further recommendations. -Maintenance Worker Municipal/oncology pharmacist following, appreciate further recommendations -Nephrology consulted, recommending decreased bicarb drip to 50 mL's per hour and fluid restriction of 1200 mL -Continue bicarb infusion at 50 mL's per hour pending further recommendations from nephrology. -Continued close monitoring of renal function, liver enzymes and sodium levels with repeat a.m. labs. -Continue heart healthy diet with fluid restriction of 1200 mL -Ultrasound kidney/renal and bladder revealed marked atrophy of the right kidney with marked cortical thinning but no renal mass hydronephrosis or calculus as well as mild atrophy of left kidney without significant cortical thinning and again no mass, hydronephrosis or calculus. -LFTs improving with rehydration and resolution of acidosis, C. diff negative. -Patient spiked isolated temp. Started on on empiric antibiotics: Vancomycin, cefepime, and Flagyl. -Follow up with cultures, repeat urinalysis and chest x-ray. CODE STATUS: No Code DVT prophylaxis: Heparin Discussed with: Patient and RN Anticipated discharge date: clinical course to determine Anticipated discharge place: Home A total of 39 minutes was spent on the care of this complex patient more than 50% of the time was spent in counseling and care coordination. Objective - Vital Signs Vital signs: Vital Signs Temp 98.2 F 11/15/21 08:00 Pulse 87 11/15/21 08:00 Resp 17 11/15/21 08:00 BP 136/64 11/15/21 08:00 Pulse Ox 95 11/15/21 08:00 FiO2 Intake & Output 11/14/21 11/15/21 11/15/21 18:59 06:59 18:59 Intake Total 1316 120 Output Total 500 1725 Balance 816 -1725 120 Intake: Oral 1316 120 Output: Urine 500 1725 Uretheral (Person) 1000 Other: Voiding Method Indwelling Catheter Indwelling Catheter # Bowel Movements 1 - Labs CBC & Chem 7: 11/15/21 08:21 11/15/21 08:21 Labs: Abnormal Lab Results - Last 24 Hours (Table) 11/14/21 11/14/21 11/14/21 Range/Units 10:03 10:03 10:03 WBC 11.4 H (3.8-10.6) k/uL RBC 3.03 L (3.80-5.40) m/uL Hgb 9.5 L (11.4-16.0) gm/dL Hct 29.2 L (34.0-46.0) % Sodium 125 L (137-145) mmol/L Chloride 96 L (98-107) mmol/L Carbon Dioxide 21 L (22-30) mmol/L BUN 47 H (7-17) mg/dL Creatinine 2.11 H (0.52-1.04) mg/dL Glucose 128 H (74-99) mg/dL Osmolality 279 L (280-301) mosm/kg Calcium 7.5 L (8.4-10.2) mg/dL AST 283 H (14-36) U/L ALT 201 H (4-34) U/L Total Protein 4.8 L (6.3-8.2) g/dL Albumin 3.1 L (3.5-5.0) g/dL Ur Random Sodium (40-220) mmol/L 11/14/21 Range/Units 16:35 WBC (3.8-10.6) k/uL RBC (3.80-5.40) m/uL Hgb (11.4-16.0) gm/dL Hct (34.0-46.0) % Sodium (137-145) mmol/L Chloride (98-107) mmol/L Carbon Dioxide (22-30) mmol/L BUN (7-17) mg/dL Creatinine (0.52-1.04) mg/dL Glucose (74-99) mg/dL Osmolality (280-301) mosm/kg Calcium (8.4-10.2) mg/dL AST (14-36) U/L ALT (4-34) U/L Total Protein (6.3-8.2) g/dL Albumin (3.5-5.0) g/dL Ur Random Sodium 36 L (40-220) mmol/L
[2021-11-15 09:32] LABS: HCT 27.7 % (34.0-46.0); HGB 9.1 gm/dL (11.4-16.0); MCH 31.5 pg (25.0-35.0); MCHC 32.9 g/dL (31.0-37.0); MCV 95.9 fL (80.0-100.0); Platelet Count 162 k/uL (150-450); RBC 2.89 m/uL (3.80-5.40); RDW 13.5 % (11.5-15.5); WBC 9.9 k/uL (3.8-10.6)
--- NOTE | 2021-11-15 09:33 | P.NPCON ---
History of Present Illness - Reason for Consult acute renal failure, chronic renal failure - History of Present Illness Reason for consultation: Acute kidney injury on chronic kidney disease History of present illness: Patient is a 81-year-old female seen in renal consultation for acute kidney injury on chronic kidney disease. Patient has chronic kidney disease stage IIIB with baseline creatinine 1.5-1.6 from June 2021. Creatinine on admission was 2.26 and is 2.11 today. Patient presented to the hospital with generalized weakness that was progressively worsening over the last few days. Patient st ates she went to use the bathroom and fell down on her knee and was unable to get up. She called her son hold and brought her to the hospital. Patient denies history of diabetes. She denies family history of renal disease. No history of coronary artery disease. She's currently receiving IV fluids. She does admit to intermittent diarrhea which she states is chronic. She did have a fever of 100.6F as of last night. She is receiving broad-spectrum IV antibiotics. Cultures are pending. She denies use of nonsteroidals. No vomiting. No hematuria. She is receiving IV fluids. Sodium level was 125 yesterday. Patient states appetite has been poor and she has been trying to drink fluids. Vital signs are stable. General: Awake. No acute distress. HEENT: Head exam is unremarkable. LUNGS: Breath sounds decreased. HEART: Rate and Rhythm are regular. ABDOMEN: Soft, no distention. EXTREMITITES: No edema. Past Medical History Past Medical History: GERD/Reflux, GI Bleed, Hypertension, Osteoarthritis (OA), Renal Disease, Syncope, Thyroid Disorder, Vascular Disorder Additional Past Medical History / Comment(s): CKD stage III, IBS, past constipation but diarrhea past few months, duodenal and antral ulcer/acute anemia with transfusion, chronic anemia, hiatal hernia, varicosities, L side sciatica, arthritis in neck and L hip, hypothyroid, sinus problems. History of Any Multi-Drug Resistant Organisms: None Reported Past Surgical History: Appendectomy, Cholecystectomy, Hysterectomy Additional Past Surgical History / Comment(s): D&C, EGD, colonoscopy, yovana cataracts Past Anesthesia/Blood Transfusion Reactions: No Reported Reaction Additional Past Anesthesia/Blood Transfusion Reaction / Comment(s): Pt has received blood in past without reaction. Past Psychological History: Anxiety, Depression Additional Psychological History / Comment(s): Pt resides alone. She is independent. Smoking Status: Never smoker Past Alcohol Use History: None Reported Past Drug Use History: None Reported - Past Family History Father Family Medical History: Cancer Additional Family Medical History / Comment(s): Father at the age of 57yrs from cancer which pt thinks was esophageal. Mother Family Medical History: Hypertension Additional Family Medical History / Comment(s): Mother lived to be 97yrs old. Medications and Allergies Home Medications Medication Instructions Recorded Confirmed Type ALPRAZolam [Xanax] 0.5 mg PO HS 10/13/17 11/13/21 History Levothyroxine Sodium [Synthroid] 75 mcg PO DAILY 10/13/17 11/13/21 History Verapamil HCl [Verapamil ER] 120 mg PO W/BRKFST 10/13/17 11/13/21 History Citalopram Hydrobromide [CeleXA] 40 mg PO W/BRKFST 08/25/20 11/13/21 History allopurinoL [Zyloprim] 100 mg PO DAILY@1200 08/25/20 11/13/21 History Ferrous Sulfate [Iron] 325 mg PO DAILY@1200 11/13/21 11/13/21 History Pantoprazole Sodium [Protonix] 40 mg PO BID-W/MEALS 11/13/21 11/13/21 History Allergies Allergy/AdvReac Type Severity Reaction Status Date / Time No Known Allergies Allergy Verified 11/13/21 19:43 Physical Exam Vitals: Vital Signs Temp Pulse Resp BP BP Pulse Ox 11/15/21 08:00 98.2 F 87 17 136/64 95 11/15/21 04:00 99.7 F H 93 16 146/65 95 11/15/21 01:00 90 11/15/21 00:00 99.3 F 93 16 149/67 94 L 11/14/21 20:13 100.6 F H 90 15 130/64 95 11/14/21 15:17 99.4 F 95 16 157/65 92 L 11/14/21 13:12 90 11/14/21 11:37 90 18 150/66 90 L Intake and Output 11/14/21 11/15/21 11/15/21 22:59 06:59 14:59 Intake Total 118 120 Output Total 200 1725 Balance -82 -1725 120 Intake: Oral 118 120 Output: Urine 200 1725 Uretheral (Person) 1000 Other: Voiding Method Indwelling Catheter Indwelling Catheter # Bowel Movements 1 Results - Lab Results Most recent lab results Calcium 7.5 mg/dL (8.4-10.2) L 11/14/21 10:03 Magnesium 2.1 mg/dL (1.6-2.3) 11/13/21 17:13 11/14/21 10:03 11/14/21 10:03 Assessment and Plan Plan: Assessment: 1. Acute kidney injury mostly prerenal secondary to severe sepsis. Creatinine was 2.26 on admission and was 2.11 yesterday. No hydronephrosis noted on kidney ultrasound. Kidneys noted to be atrophic. 2. Chronic kidney disease stage IIIB with baseline creatinine 1.5-1.6 secondary to nephrosclerosis. 3. Hyponatremia from poor solute intake. Urine sodium 36 and urine osmolality for 10. TSH normal. 4. Metabolic acidosis secondary to GI losses and acute kidney injury. Maintain on bicarb drip. 5. Severe sepsis. Cultures pending. On antibiotics. Plan: Maintain bicarb drip. Follow-up morning labs. Encourage oral intake. Maintain fluid restriction. Check bladder scan to rule out urinary retention. Continue to monitor renal function and urine output. Follow-up echocardiogram. Thank you for the consultation. I will continue to follow this patient with you during her hospital stay.
--- NOTE | 2021-11-15 09:46 | XR ---
EXAMINATION TYPE: XR chest 2V DATE OF EXAM: 11/15/2021 COMPARISON: 11/13/2021 HISTORY: 81 year-old female fever unknown origin TECHNIQUE: AP and lateral views FINDINGS: Heart upper limits of normal in size. Atherosclerotic arch calcifications. Diffuse interstitial and v ascular prominence. Some subtle Jeanna B lines are suggested. On the lateral view, small bilateral pl eural effusions with adjacent basilar patchy opacity. IMPRESSION: Borderline heart size with diffuse interstitial changes. Small bilateral pleural effusions with adjac ent atelectasis and/or consolidation. Correlate for CHF with pulmonary vascular congestion.
[2021-11-15 09:56] LABS: Albumin 2.6 g/dL (3.5-5.0); Calcium 7.1 mg/dL (8.4-10.2); Magnesium 1.6 mg/dL (1.6-2.3); Potassium 3.8 mmol/L (3.5-5.1); Total Bilirubin 0.7 mg/dL (0.2-1.3); Total Protein 4.2 g/dL (6.3-8.2)
[2021-11-15] MEDS ORDERED: VANCOMYCIN 1,000 MG in SODIUM CHLORIDE 0.9% 250 ML IVPB ONE (10:00)
[2021-11-15] MEDS ORDERED: FUROSEMIDE 10 MG/ML 2 ML VIAL IV ONE (10:27)
[2021-11-15] MEDS: metroNIDAZOLE-NS PMX 500 MG in SALINE 1 100ML.BAG IVPB SCH ×3 (10:29→23:22)
[2021-11-15] MEDS: LACTATED RINGERS 1,000 ML IV SCH (10:37)
--- NOTE | 2021-11-15 11:49 | P.PN ---
Subjective This is a pleasant 81-year-old female patient with history of chronic kidney disease, duodenal antral ulcer which were showed to be healed in October 2020 and history of anemia, hypertension. Does not follow regularly with the catalytic converter operator helper denies any history of cardiac issues. Denies history of diabetes or hyperlipidemia. Presented to the emergency department via EMS after developing some significant weakness and dizziness at home. She apparently was on her couch felt as if she had to go to the bathroom to have a bowel movement and when she got up she lowered herself to the floor because she was quite weak. She had been having some diarrhea at home which she has quite frequently. Upon arrival it is noted in the ER notes that the patient's blood pressure was in the 70s systolic with a heart rate in the 20s. There was question of atrial fibrillation but upon review of the EKG it appears the patient had a AV block. Verapamil on hold. Labs on admission showed evidence of acute kidney injury with a creatinine of 2.26 with previous 1.65. Troponins negative 3. 11/15 Patient seen and examined at bedside, no complaints. Overall feeling well. Denies any chest pain, shortness of breath, lightheadedness or dizziness. Echo pending. Telemetry reviewed, patient in sinus rhythm HR 70-80s, no bradycardia noted. BP 136/64. TSH rechecked and Free T4 within normal limits. GENERAL: Well-appearing, well-nourished and in no acute distress. NECK: Supple without JVD LUNGS: Breath sounds clear to auscultation bilaterally. Respiration equal and unlabored. No wheezes, rales or rhonchi. HEART: Regular rate and rhythm without murmurs, rubs or gallops. S1 and S2 heard. EXTREMITIES: Normal range of motion, no edema. No clubbing or cyanosis. Peripheral pulses intact. ASSESSMENT #1 symptoms of weakness and lightheadedness in the setting of hypotension and bradycardia, resolved. #2 dehydration #3 chronic kidney disease with acute kidney injury #4 History of duodenal and antral ulcers, resolved #5 chronic diarrhea with intermittent constipation after use of Immodium PLAN 2-D echo with Doppler study to assess cardiac structure and function. Continue to hold verapamil. Nephrology following, patient in bicarb drip Continue cardiac telemetry Bradycardia likely related to acute kidney injury, electrolyte abnormalities. Continue to monitor. Nurse Practitioner note has been reviewed, I agree with a documented findings and plan of care. Patient was seen and examined. Objective - Vital Signs Vital signs: Vital Signs Temp 99.7 F H 11/15/21 04:00 Pulse 93 11/15/21 04:00 Resp 16 11/15/21 04:00 BP 146/65 11/15/21 04:00 Pulse Ox 95 11/15/21 04:00 FiO2 Intake & Output 11/14/21 11/15/21 11/15/21 18:59 06:59 18:59 Intake Total 1316 120 Output Total 500 1725 Balance 816 -1725 120 Intake: Oral 1316 120 Output: Urine 500 1725 Uretheral (Person) 1000 Other: Voiding Method Indwelling Catheter Indwelling Catheter # Bowel Movements 1 - Labs CBC & Chem 7: 11/15/21 08:21 11/15/21 08:21 Labs: Abnormal Lab Results - Last 24 Hours (Table) 11/14/21 11/14/21 11/14/21 Range/Units 10:03 10:03 10:03 WBC 11.4 H (3.8-10.6) k/uL RBC 3.03 L (3.80-5.40) m/uL Hgb 9.5 L (11.4-16.0) gm/dL Hct 29.2 L (34.0-46.0) % Sodium 125 L (137-145) mmol/L Chloride 96 L (98-107) mmol/L Carbon Dioxide 21 L (22-30) mmol/L BUN 47 H (7-17) mg/dL Creatinine 2.11 H (0.52-1.04) mg/dL Glucose 128 H (74-99) mg/dL Osmolality 279 L (280-301) mosm/kg Calcium 7.5 L (8.4-10.2) mg/dL AST 283 H (14-36) U/L ALT 201 H (4-34) U/L Total Protein 4.8 L (6.3-8.2) g/dL Albumin 3.1 L (3.5-5.0) g/dL Ur Random Sodium (40-220) mmol/L 11/14/21 Range/Units 16:35 WBC (3.8-10.6) k/uL RBC (3.80-5.40) m/uL Hgb (11.4-16.0) gm/dL Hct (34.0-46.0) % Sodium (137-145) mmol/L Chloride (98-107) mmol/L Carbon Dioxide (22-30) mmol/L BUN (7-17) mg/dL Creatinine (0.52-1.04) mg/dL Glucose (74-99) mg/dL Osmolality (280-301) mosm/kg Calcium (8.4-10.2) mg/dL AST (14-36) U/L ALT (4-34) U/L Total Protein (6.3-8.2) g/dL Albumin (3.5-5.0) g/dL Ur Random Sodium 36 L (40-220) mmol/L
[2021-11-15] MEDS: FERROUS SULFATE 325 MG TAB PO SCH (12:30)
[2021-11-15] MEDS: ACETAMINOPHEN TAB 325 MG TAB PO PRN (12:30)
[2021-11-15] MEDS: allopurinoL 100 MG TAB PO SCH (12:31)
--- NOTE | 2021-11-15 12:38 | CA ---
Transthoracic Echo Report Name: Deanne Savage Age: 81 Gender: F : 1940 Exam Date: 11/15/2021 09:37 Exam Location: [facility] Ht (in): 60 Wt (lb): 125 Ordering Physician: Yumiko Walker MD ([id number]) Attending/Referring Phys: Pharmacy Clinical Specialist Rae Salcido RDCS Procedure CPT: Indications: HTN Cardiac Hx: Technical Quality: Fair Contrast 1: Total Dose (mL): Contrast 2: Total Dose (mL): MEASUREMENTS (Male / Female) Normal Values 2D ECHO LV Diastolic Diameter PLAX 3.6 cm 4.2 - 5.9 / 3.9 - 5.3 cm LV Systolic Diameter PLAX 2.2 cm IVS Diastolic Thickness 1.0 cm 0.6 - 1.0 / 0.6 - 0.9 cm LVPW Diastolic Thickness 1.2 cm 0.6 - 1.0 / 0.6 - 0.9 cm LV Relative Wall Thickness 0.6 RV Internal Dim ED PLAX 2.6 cm LA Volume 51.1 cm??? 18 - 58 / 22 - 52 cm??? M-MODE Aortic Root Diameter MM 2.9 cm LA Systolic Diameter MM 4.2 cm LA Ao Ratio MM 1.4 AV Cusp Separation MM 1.6 cm DOPPLER AV Peak Velocity 160.9 cm/s AV Peak Gradient 10.4 mmHg MV Area PHT 3.6 cm??? Mitral E Point Velocity 100.0 cm/s Mitral A Point Velocity 139.0 cm/s Mitral E to A Ratio 0.7 MV Deceleration Time 187.7 ms MV E' Velocity 6.1 cm/s Mitral E to MV E' Ratio 16.4 TR Peak Velocity 254.3 cm/s TR Peak Gradient 25.9 mmHg Right Ventricular Systolic Press 30.8 mmHg FINDINGS Left Ventricle Mildly increased left ventricular wall thickness. No obvious regional wall motion abnormalities. Left ventricular ejection fraction is estimated at 50-55 %. Right Ventricle Normal right ventricular size and function. Right ventricular systolic pressure within normal limits. Right Atrium Normal right atrial size. Left Atrium Mild left atrial dilatation. Mitral Valve Moderate mitral annular calcification. Mitral valve thickened. [id number] mitral regurgitation. Aortic Valve No aortic valve stenosis or regurgitation. Tricuspid Valve Mild tricuspid regurgitation. Pulmonic Valve Trace pulmonic regurgitation. Pericardium No pericardial effusion. Aorta Normal size aortic root and proximal ascending aorta. CONCLUSIONS Normal left ventricular dimension and systolic function Previewed by: Dr. Jamel Chowdary MD (Electronically Signed) Final Date: 15 November 2021 12:37
[2021-11-15] MEDS: CEFEPIME 1 GM in SODIUM CHLORIDE 0.9% 50 ML IVPB SCH ×2 (13:31→20:46)
--- NOTE | 2021-11-15 15:04 | P.PN ---
Subjective Progress Note Date: 11/15/21 Principal diagnosis: Acute dehydration secondary to diarrhea 81-year-old female patient, presented emergency department because of dehydration, lightheadedness and fatigue.. She's been having diarrhea for the past 24-48 hours and she was getting progressively more dehydrated. She was trying to move around that she became lightheaded. No loss of consciousness. No abdominal pain. No emesis. Upon arrival to the emergency, the patient had a blood pressure 76/36. She was also bradycardic. I reviewed the EKGs and there is no clear indication for atrial fibrillation. She had sinus bradycardia. I confirmed this with cardiology. Note that the patient was taking verapamil with slow down her heart rate. The patient about blood work and she was in non-anion gap metabolic acidosis. The serum bicarbonate was 12. She is known to have chronic kidney disease and her baseline creatinine is at 1.6 and creatinine came up to 2.26 with a mean of 44. Troponin was 0.01. UA was negative. The patient started resuscitated with IV fluids and initially she was going to be tra nsferred to the ICU following that she improved and she was sent to the medical floor. She is was resuscitated for now and she remains on a bicarb infusion at the rate of 100 mL an hour. Cardiology will be seeing her regarding this bradycardia. No clear indication for atrial fibrillation. She is on room air oxygen. Chest x-ray essentially negative for an acute process. No aspiration. She has received COVID 19 vaccination. COVID 19 status is not known. Patient was reevaluated today on 11/15/21, seems to be doing fairly well, patient is asymptomatic, her diarrhea significantly improved, blood pressure seems to be better, patient is doing great, she was seen by Dr. Quintero yesterday for possible transfer to the ICU and apparently she did not require transfer and she still does not require transfer to ICU. From the pulmonary perspective and ICU perspective patient is doing well and should be managed properly on the regular medical floor Objective - Vital Signs Vital signs: Vital Signs Temp 98.4 F 11/15/21 12:00 Pulse 86 11/15/21 14:00 Resp 18 11/15/21 14:00 BP 131/62 11/15/21 12:00 Pulse Ox 97 11/15/21 12:00 FiO2 Intake & Output 11/14/21 11/15/21 11/15/21 18:59 06:59 18:59 Intake Total 1316 240 Output Total 500 1725 550 Balance 816 -1725 -310 Intake: Oral 1316 240 Output: Urine 500 1725 550 Uretheral (Person) 1000 Other: Voiding Method Indwelling Catheter Indwelling Catheter Indwelling Catheter # Bowel Movements 1 - Exam Physical Exam HEENT:: Revealed a 81-year-old female in no distress. [No neck masses.] [No thyromegaly.] [No JVD.] Chest: [Clear throughout, no crackles, no rhonchi, no wheezes.] Cardiac Exam: [Normal S1 and S2, no S3 gallop, no murmur.] Abdomen: [Soft, nontender, no megaly, no rebound, no guarding, normal bowel sounds.] Extremities: [No clubbing, no edema, no cyanosis.] Neurological Exam: [No focal neurologic deficit.] Psychiatric: Normal mood affect and normal mental status examination. Skin: No rashes. [place] skeletal: No deformities and no limitation in range of motion - Labs CBC & Chem 7: 11/15/21 08:21 11/15/21 08:21 Labs: Abnormal Lab Results - Last 24 Hours (Table) 11/14/21 11/15/21 11/15/21 Range/Units 16:35 08:21 08:21 RBC 2.89 L (3.80-5.40) m/uL Hgb 9.1 L (11.4-16.0) gm/dL Hct 27.7 L (34.0-46.0) % Sodium 126 L (137-145) mmol/L Chloride 93 L (98-107) mmol/L BUN 37 H (7-17) mg/dL Creatinine 1.78 H (0.52-1.04) mg/dL Glucose 128 H (74-99) mg/dL Plasma Lactic Acid Carlos (0.7-2.0) mmol/L Calcium 7.1 L (8.4-10.2) mg/dL AST 116 H (14-36) U/L ALT 104 H (4-34) U/L Total Protein 4.2 L (6.3-8.2) g/dL Albumin 2.6 L (3.5-5.0) g/dL Ur Random Sodium 36 L (40-220) mmol/L 11/15/21 11/15/21 Range/Units 08:54 12:05 RBC (3.80-5.40) m/uL Hgb (11.4-16.0) gm/dL Hct (34.0-46.0) % Sodium (137-145) mmol/L Chloride (98-107) mmol/L BUN (7-17) mg/dL Creatinine (0.52-1.04) mg/dL Glucose (74-99) mg/dL Plasma Lactic Acid Carlos 2.2 H* 0.6 L (0.7-2.0) mmol/L Calcium (8.4-10.2) mg/dL AST (14-36) U/L ALT (4-34) U/L Total Protein (6.3-8.2) g/dL Albumin (3.5-5.0) g/dL Ur Random Sodium (40-220) mmol/L Assessment and Plan Assessment: Impression: Acute dehydration secondary to diarrhea, improved Acute non-anion gap metabolic acidosis secondary to diarrhea, treated with bicarb infusion and the bicarb that is closing Bradycardia, likely drug-induced Acute on chronic stage III chronic kidney disease Irritable bowel syndrome History of constipation Duodenal and antral ulcer with a previous history of bleed requiring transfusion History of sciatica Hypothyroidism Hypertension Recommendation: Continue present supportive care measures Her sodium bicarb infusion has been discontinued Continue to monitor electrolytes Again no need to transfer to ICU We will sign off and see the patient on when necessary basis. Time with Patient: Less than 30
[2021-11-15 15:49] LABS: Appearance,Urine Cloudy (Clear); Bacteria,Urine Many /hpf; Bilirubin,Urine Negative (Negative); Blood,Urine Trace (Negative); Budding Yeast,Urine Few /hpf; Color,Urine Yellow; Glucose,Urine (UA) Negative (Negative); Ketones,Urine Negative (Negative); Leukocyte Esterase,Urine Large (Negative); Nitrite,Urine Negative (Negative); Protein,Urine Trace (Negative); RBC,Urine 5 /hpf (0-5); Specific Gravity,Urine 1.008 (1.001-1.035); Squamous Epithelial Cell,Urine <1 /hpf (0-4); Triple Phosphate Crystal,Urine Rare /hpf; Urobilinogen,Urine <2.0 mg/dL (<2.0); WBC,Urine 23 /hpf (0-5)
[2021-11-15] MEDS: MAGNESIUM SULFATE-D5W PMX 1 GM in DEXTROSE/WATER 1 100ML.BAG IVPB SCH ×2 (17:20→21:40)
[2021-11-15] MEDS: ALPRAZolam 0.5 MG TAB PO SCH (20:46)
[2021-11-16] MEDS: CITALOPRAM HYDROBROMIDE 20 MG TAB PO SCH (05:10)
[2021-11-16] MEDS: PANTOPRAZOLE 40 MG TABLET PO SCH ×2 (05:10→16:56)
[2021-11-16] MEDS: LACTATED RINGERS 1,000 ML IV SCH (05:10)
[2021-11-16] MEDS: LEVOTHYROXINE 75 MCG TAB PO SCH (05:10)
[2021-11-16] MEDS: HEPARIN SODIUM,PORCINE/PF 5,000 UNIT/0.5 ML SYRINGE SQ SCH ×2 (07:53→15:58)
[2021-11-16] MEDS: metroNIDAZOLE-NS PMX 500 MG in SALINE 1 100ML.BAG IVPB SCH ×2 (07:58→18:17)
[2021-11-16] MEDS ORDERED: VANCOMYCIN 1,000 MG in SODIUM CHLORIDE 0.9% 250 ML IVPB ONE (09:00)
[2021-11-16 09:03] LABS: HCT 27.2 % (34.0-46.0); HGB 8.9 gm/dL (11.4-16.0); MCHC 32.7 g/dL (31.0-37.0); Mean Platelet Volume 8.8; Platelet Count 151 k/uL (150-450); RBC 2.77 m/uL (3.80-5.40); RDW 13.6 % (11.5-15.5); WBC 9.2 k/uL (3.8-10.6)
[2021-11-16 09:16] LABS: Albumin 2.6 g/dL (3.5-5.0); Calcium 7.2 mg/dL (8.4-10.2); Magnesium 2.2 mg/dL (1.6-2.3); Potassium 3.9 mmol/L (3.5-5.1); Total Bilirubin 0.5 mg/dL (0.2-1.3); Total Protein 4.3 g/dL (6.3-8.2)
[2021-11-16] MEDS ORDERED: FUROSEMIDE 10 MG/ML 2 ML VIAL IV ONE (09:38)
--- NOTE | 2021-11-16 09:39 | P.PN ---
Subjective Patient is seen in follow-up for acute kidney injury and hyponatremia. Renal function stable. Sodium level better. Blood pressure stable. Nonoliguric. Has a Person catheter. No vomiting or diarrhea. Vital signs are stable. General: Awake. No acute distress. HEENT: Head exam is unremarkable. On nasal cannula. LUNGS: Breath sounds decreased. HEART: Rate and Rhythm are regular. ABDOMEN: Soft, no distention. EXTREMITITES: No edema. Objective - Vital Signs Vital signs: Vital Signs Temp 98.6 F 11/16/21 07:36 Pulse 74 11/16/21 09:05 Resp 16 11/16/21 09:05 BP 150/66 11/16/21 07:36 Pulse Ox 94 L 11/16/21 07:36 FiO2 Intake & Output 11/15/21 11/16/21 11/16/21 18:59 06:59 18:59 Intake Total 540 Output Total 1150 1750 500 Balance -610 -1750 -500 Intake: Oral 540 Output: Urine 1150 1750 500 Uretheral (Person) 1000 Other: Voiding Method Indwelling Catheter Indwelling Catheter Indwelling Catheter # Bowel Movements 1 - Labs CBC & Chem 7: 11/16/21 07:57 11/16/21 07:57 Labs: Abnormal Lab Results - Last 24 Hours (Table) 11/15/21 11/15/21 11/15/21 Range/Units 08:21 08:21 08:54 RBC 2.89 L (3.80-5.40) m/uL Hgb 9.1 L (11.4-16.0) gm/dL Hct 27.7 L (34.0-46.0) % Sodium 126 L (137-145) mmol/L Chloride 93 L (98-107) mmol/L BUN 37 H (7-17) mg/dL Creatinine 1.78 H (0.52-1.04) mg/dL Glucose 128 H (74-99) mg/dL Plasma Lactic Acid Carlos 2.2 H* (0.7-2.0) mmol/L Calcium 7.1 L (8.4-10.2) mg/dL AST 116 H (14-36) U/L ALT 104 H (4-34) U/L Total Protein 4.2 L (6.3-8.2) g/dL Albumin 2.6 L (3.5-5.0) g/dL Urine Appearance (Clear) Urine Protein (Negative) Urine Blood (Negative) Ur Leukocyte Esterase (Negative) Urine WBC (0-5) /hpf Triple Phos Crystals (None) /hpf Urine Bacteria (None) /hpf Urine Yeast (Budding) (None) /hpf 11/15/21 11/15/21 11/16/21 Range/Units 12:05 15:29 07:57 RBC (3.80-5.40) m/uL Hgb (11.4-16.0) gm/dL Hct (34.0-46.0) % Sodium 128 L (137-145) mmol/L Chloride 96 L (98-107) mmol/L BUN 36 H (7-17) mg/dL Creatinine 1.83 H (0.52-1.04) mg/dL Glucose 101 H (74-99) mg/dL Plasma Lactic Acid Carlos 0.6 L (0.7-2.0) mmol/L Calcium 7.2 L (8.4-10.2) mg/dL AST 69 H (14-36) U/L ALT 79 H (4-34) U/L Total Protein 4.3 L (6.3-8.2) g/dL Albumin 2.6 L (3.5-5.0) g/dL Urine Appearance Cloudy H (Clear) Urine Protein Trace H (Negative) Urine Blood Trace H (Negative) Ur Leukocyte Esterase Large H (Negative) Urine WBC 23 H (0-5) /hpf Triple Phos Crystals Rare H (None) /hpf Urine Bacteria Many H (None) /hpf Urine Yeast (Budding) Few H (None) /hpf 11/16/21 Range/Units 07:57 RBC 2.77 L (3.80-5.40) m/uL Hgb 8.9 L (11.4-16.0) gm/dL Hct 27.2 L (34.0-46.0) % Sodium (137-145) mmol/L Chloride (98-107) mmol/L BUN (7-17) mg/dL Creatinine (0.52-1.04) mg/dL Glucose (74-99) mg/dL Plasma Lactic Acid Carlos (0.7-2.0) mmol/L Calcium (8.4-10.2) mg/dL AST (14-36) U/L ALT (4-34) U/L Total Protein (6.3-8.2) g/dL Albumin (3.5-5.0) g/dL Urine Appearance (Clear) Urine Protein (Negative) Urine Blood (Negative) Ur Leukocyte Esterase (Negative) Urine WBC (0-5) /hpf Triple Phos Crystals (None) /hpf Urine Bacteria (None) /hpf Urine Yeast (Budding) (None) /hpf Assessment and Plan Plan: Assessment: 1. Acute kidney injury mostly prerenal secondary to severe sepsis. Creatinine was 2.26 on admission - 1.83 today. No hydronephrosis noted on kidney ultrasound. Kidneys noted to be atrophic. 2. Chronic kidney disease stage IIIB with baseline creatinine 1.5-1.6 secondary to nephrosclerosis. 3. Hyponatremia from poor solute intake. Urine sodium 36 and urine osmolality for 10. TSH normal. Better. Hypervolemic. 4. Metabolic acidosis secondary to GI losses and acute kidney injury. Status post bicarb drip. Resolved. 5. Severe sepsis. Cultures pending. On antibiotics. UA suggestive of UTI. 6. Urinary retention. Has a Person catheter. 7. Acute on chronic diastolic CHF with mild to moderate mitral regurgitation. Plan: Remains off IV fluids. Repeat IV Lasix 20 mg once today. Encourage oral intake. Maintain fluid restriction. Follow-up chest x-ray. Add Flomax. Continue to monitor renal function and urine output.
--- NOTE | 2021-11-16 11:51 | XR ---
EXAMINATION TYPE: XR chest 1V DATE OF EXAM: 11/16/2021 HISTORY: Shortness of breath. COMPARISON: 11/15/2021 TECHNIQUE: Single view of the chest is submitted. FINDINGS: Demonstrated are scattered senescent parenchymal change. Continued mild cardiomegaly with pulmonary venous congestion and interstitial edema with small effusi ons. Slight improvement suggested. Hilar and mediastinal structures are within normal limits. Degenerative changes are seen of the dorsal spine. IMPRESSION: 1. Continued mild cardiomegaly with pulmonary venous congestion and interstitial edema with small ef fusions. Slight improvement suggested.
[2021-11-16] MEDS: allopurinoL 100 MG TAB PO SCH (11:53)
[2021-11-16] MEDS: FERROUS SULFATE 325 MG TAB PO SCH (11:53)
[2021-11-16] MEDS: TAMSULOSIN 0.4 MG CAP.ER.24H PO SCH (11:54)
--- NOTE | 2021-11-16 11:56 | P.PN ---
Subjective This is a pleasant 81-year-old female patient with history of chronic kidney disease, duodenal antral ulcer which were showed to be healed in October 2020 and history of anemia, hypertension. 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 Denies history of diabetes or hyperlipidemia. Presented to the emergency department via EMS after developing some significant weakness and dizziness at home. She apparently was on her couch felt as if she had to go to the bathroom to have a bowel movement and when she got up she lowered herself to the floor because she was quite weak. She had been having some diarrhea at home which she has quite frequently. Upon arrival it is noted in the ER notes that the patient's blood pressure was in the 70s systolic with a heart rate in the 20s. There was question of atrial fibrillation but upon review of the EKG it appears the patient had a AV block. Verapamil on hold. Labs on admission showed evidence of acute kidney injury with a creatinine of 2.26 with previous 1.65. Troponins negative 3. 11/16 Patient seen and examined at bedside, no complaints. Overall feeling well. Denies any chest pain, shortness of breath, lightheadedness or dizziness. Echo revealed 50-55%, mild to moderate mitral regurgitation. Telemetry reviewed, patient in sinus rhythm HR 70-80s, no bradycardia noted. BP 150/66 TSH rechecked and Free T4 within normal limits. Chest xray revealed mild cardiomegaly, pulmonary venous congestion with interstitial edema with small effusions. GENERAL: Well-appearing, well-nourished and in no acute distress. NECK: Supple without JVD LUNGS: Breath sounds crackles in the bases to auscultation bilaterally. Respiration equal and unlabored. No wheezes, rales or rhonchi. HEART: Regular rate and rhythm without murmurs, rubs or gallops. S1 and S2 heard. EXTREMITIES: Normal range of motion, no edema. No clubbing or cyanosis. Peripheral pulses intact. ASSESSMENT Symptoms of weakness and lightheadedness in the setting of hypotension and keyon cardia, resolved. Dehydration Diarrhea Chronic kidney disease with acute kidney injury History of duodenal and antral ulcers, resolved Chronic diarrhea with intermittent constipation after use of Immodium PLAN Echo revealed EF 50-55%, Continue to hold verapamil. Consider amlodipine for elevated BP. Nephrology following, patient started on IV Lasix Continue cardiac telemetry Further recommendations based on clinical course Nurse Practitioner note has been reviewed, I agree with a documented findings and plan of care. Patient was seen and examined. Objective - Vital Signs Vital signs: Vital Signs Temp 98.6 F 11/16/21 07:36 Pulse 74 11/16/21 09:05 Resp 16 11/16/21 09:05 BP 150/66 11/16/21 07:36 Pulse Ox 94 L 11/16/21 07:36 FiO2 Intake & Output 11/15/21 11/16/21 11/16/21 18:59 06:59 18:59 Intake Total 540 120 Output Total 1150 1750 500 Balance -610 -1750 -380 Intake: Oral 540 120 Output: Urine 1150 1750 500 Uretheral (Person) 1000 Other: Voiding Method Indwelling Catheter Indwelling Catheter Indwelling Catheter # Bowel Movements 1 - Labs CBC & Chem 7: 11/16/21 07:57 11/16/21 07:57 Labs: Abnormal Lab Results - Last 24 Hours (Table) 11/15/21 11/15/21 11/16/21 Range/Units 12:05 15:29 07:57 RBC (3.80-5.40) m/uL Hgb (11.4-16.0) gm/dL Hct (34.0-46.0) % Sodium 128 L (137-145) mmol/L Chloride 96 L (98-107) mmol/L BUN 36 H (7-17) mg/dL Creatinine 1.83 H (0.52-1.04) mg/dL Glucose 101 H (74-99) mg/dL Plasma Lactic Acid Carlos 0.6 L (0.7-2.0) mmol/L Calcium 7.2 L (8.4-10.2) mg/dL AST 69 H (14-36) U/L ALT 79 H (4-34) U/L Total Protein 4.3 L (6.3-8.2) g/dL Albumin 2.6 L (3.5-5.0) g/dL Urine Appearance Cloudy H (Clear) Urine Protein Trace H (Negative) Urine Blood Trace H (Negative) Ur Leukocyte Esterase Large H (Negative) Urine WBC 23 H (0-5) /hpf Triple Phos Crystals Rare H (None) /hpf Urine Bacteria Many H (None) /hpf Urine Yeast (Budding) Few H (None) /hpf 11/16/21 Range/Units 07:57 RBC 2.77 L (3.80-5.40) m/uL Hgb 8.9 L (11.4-16.0) gm/dL Hct 27.2 L (34.0-46.0) % Sodium (137-145) mmol/L Chloride (98-107) mmol/L BUN (7-17) mg/dL Creatinine (0.52-1.04) mg/dL Glucose (74-99) mg/dL Plasma Lactic Acid Carlos (0.7-2.0) mmol/L Calcium (8.4-10.2) mg/dL AST (14-36) U/L ALT (4-34) U/L Total Protein (6.3-8.2) g/dL Albumin (3.5-5.0) g/dL Urine Appearance (Clear) Urine Protein (Negative) Urine Blood (Negative) Ur Leukocyte Esterase (Negative) Urine WBC (0-5) /hpf Triple Phos Crystals (None) /hpf Urine Bacteria (None) /hpf Urine Yeast (Budding) (None) /hpf
--- NOTE | 2021-11-16 11:57 | CT ---
EXAMINATION TYPE: CT abdomen pelvis wo con DATE OF EXAM: 11/16/2021 COMPARISON: 08/03/2018 HISTORY: 81-year-old female Diarrhea, abd discomfort r/o source of sepsis CT DLP: 484.7 mGycm. Automated exposure control for dose reduction was used. TECHNIQUE: Contiguous axial scanning of the abdomen and pelvis without IV contrast. Coronal and sagit haley reconstructions performed. FINDINGS: Generalized anasarca change. Heart upper limits of normal in size with LAD coronary artery calcificat ions. Cneeb-[id number] bilateral effusions with prominent volume loss, consolidation, and air bronch ograms within the dependent lower lobes. [id number] size hiatal hernia. Noncontrast appearance of the liver, adrenal glands, spleen with tiny hilar splenule, and pancreas sh ow no gross abnormality. Somewhat bulbous appearance to the tail of the pancreas remains unchanged fr om the 2019 exam. Bilateral perinephric edema likely relates to the anasarca change. Extrarenal pelvis involving both k idneys. No dilated small bowel or free air. Mild overall stool burden. Mildly redundant sigmoid colon. There is moderate to severe circumferentia l wall thickening rectosigmoid junction and rectum with prominent perirectal edema and confluent pres acral edema. Mild pelvic ascites. Person catheter decompresses the bladder. Uterus not well seen. Bones: Advanced hypertrophic facet arthropathy. Degenerative grade 1, nearly grade 2 anterolisthesis L4-L5. Grade 1 retrolisthesis L1-L2 and L2-L3. Osteopenia. Superior endplate deformities of T12 and L 1, new from 08/03/2018 are age indeterminant and will need further clinical correlation. IMPRESSION: 1. Moderate to severe rectosigmoid colitis and proctitis. Moderate to severe surrounding inflammator y edema and mild pelvic ascites. No free air. 2. Generalized anasarca along with zohqg-[id number]-[id number] effusions. Query fluid overload state/third spa cing. 3. Prominent dependent consolidation and volume loss involving the lower lobes. Correlate to exclude underlying pneumonia or aspiration. 4. Person catheter in place. Bladder wall appears mildly thickened. Correlate to exclude cystitis. 5. Mild superior endplate deformities at T12 and L1, new from 08/03/2018 but still age indeterminate. Correlate for any focal pain at these levels. 6. Small to moderate-sized hiatal hernia.
--- NOTE | 2021-11-16 12:38 | P.PN ---
Subjective Progress Note Date: 11/16/21 Hospital course: Patient is a very pleasant 81-year-old female with a past medical history of chronic kidney disease, hypertension, and hypothyroidism. She presented to the emergency room on 11/13/21 with complaints of lightheadedness and fatigue. The patient reported that she has been experiencing diarrhea over the past several days, and states that she believes she is dehydrated. Per documentation pt was initially very hypotensive with BP 76/36 and bradycardic with HR in 40's. Pt underwent full evaluation in the emergency department. Initial EKG was completed revealing sinus bradycardia with occasional PAC at 52 bpm with an incomplete right bundle-branch, there were no T-wave or ST abnormalities showing no signs of acute ischemia. Repeat EKG revealed sinus bradycardia at 59 bpm with incomplete right bundle branch block. Chest x-ray completed showing mild pulmonary vascular congestion. CBC revealing normocytic normochromic anemia with hemoglobin stable at 9.8 which is at baseline level. Coags normal findings. CMP revealing hyponatremia with sodium of 127, and non-anion gap metabolic acidosis with lactate of 3.2, chloride of 101, carbon dioxide of 12, an anion gap of 14, acute on chronic kidney injury with BUN of 44, creatinine 2.26, and GFR of 20 with baseline creatinine of 1.6, Elevated renal function with AST of 310 and ALT of 156. Troponin was negative at less than 0.012. Urinalysis cloudy and dark brown in color positive for protein, ketones, and bilirubin but negative for infection. C. diff negative and Covid PCR also neg ative. Patient received a 1 L bolus of 0.9% normal saline and was started on sodium bicarb infusion. Patient admitted under our services with consultation to cardiology, intensive care, and nephrology. Ultrasound kidney/renal and bladder revealed marked atrophy of the right kidney with marked cortical thinning but no renal mass hydronephrosis or calculus as well as mild atrophy of left kidney without significant cortical thinning and again no mass, hydronephrosis or calculus. Overnight on 11/14/21, patient spiked an isolated fever of 100.6F. She was started on empiric antibiotics with vancomycin, cefepime, and Flagyl pending further results. CT abdomen and pelvis revealing moderate to severe rectosigmoid colitis and proctitis with moderate to severe surrounding inflammatory edema and mild pelvic ascites with no free air, generalized and eschars with mild to moderate effusions, prominent dependent consolidation and volume loss involving the lower lobes, unable to rule out underlying pneumonia or aspiration, mild superior endplate deformities at T12 and L1, and small to moderate sized hiatal hernia. Chest x-ray revealing continued mild cardiomegaly with pulmonary venous congestion and interstitial edema with small effusions. Physical exam: Patient seen and fully evaluated at bedside this morning. She denies having any further episodes of diarrhea but reports having a single episode of bloody/mucousy stool and is now reporting right lower and left lower quadrant abdominal pain. CT abdomen and pelvis without contrast completed revealing moderate to severe rectosigmoid colitis and proctitis with moderate to severe surrounding inflammatory edema and mild pelvic ascites with no free air. GI consulted at this time. morning labs reviewed. Hemoglobin 8.9, sodium 128, chloride 96, BUN 36, creatinine 1.83, and GFR of 26. Liver enzymes continued to improve with AST of 69, ALT of 79, and alkaline phosphatase of 68. At this time patient to continue IV antibiotic regimen with vancomycin, cefepime, and Flagyl pending further culture results. Patient has been afebrile for the past 24 hours and leukocytosis has resolved. Vital signs reviewed and stable. General: Nontoxic, no distress and appears stated age. Derm: Skin warm and dry, normal coloration for ethnicity. Head: Atraumatic, normocephalic and symmetric. Eyes: EOMs intact, no lid lag, and anicteric sclera Mouth: no lip lesions, mucus membranes moist Cardiovascular: regular rate and rhythm with normal S1S2, Systolic murmur, positive posterior tibial pulses bilaterally, and cap refill < 2 seconds. Lungs: Respirations even, regular, and unlabored on room air. Lungs CTA bilaterally, no rhonchi, no rales, no wheezing, and no accessory muscle usage. Abdominal: soft, nontender to palpation, no guarding, no appreciable organomegaly Ext: ROM intact. No gross muscle atrophy, mild 1+ pitting edema and generalized edema, no contractures Neuro: Speech clear, face symmetrical and CN II-XII grossly intact with no noted focal neuro deficits Psych: Alert and oriented to person, place, time, and situation. Appropriate and pleasant affect. Assessment and Plan of Care: Moderate to severe rectosigmoid colitis Elevated LFTs, Improving. Severe Sepsis resulting from moderate to severe rectosigmoid colitis Hiatal hernia Leukocytosis, resolved -GI consult placed, appreciate further recommendations. -Continue IV antibiotics with vancomycin, cefepime, and Flagyl pending further culture results. -Ultrasound kidney/renal and bladder revealed marked atrophy of the right kidney with marked cortical thinning but no renal mass hydronephrosis or calculus as well as mild atrophy of left kidney without significant cortical thinning and again no mass, hydronephrosis or calculus. -LFTs improving with rehydration and resolution of acidosis, C. diff negative. -Follow up with Blood cultures. Generalized anasarca and fluid volume overload Acute diastolic heart failure with preserved EF 50-55% Generalized anasarca with mild to moderate effusions Prominent dependent consolidation and lung volume loss involving bilateral lower lobes, unable to rule out underlying pneumonia or aspiration -Telemetry monitoring -Cardiology and pulmonary following, appreciate further recommendations. -Continue heart healthy diet with fluid restriction of 1200 mL -Daily weights -Strict I's and O's -Lasix 20 mg IVP daily -Continue IV antibiotics as above Hyponatremia, improving. Acute kidney injury on stage III chronic kidney disease, improving. Urinary retention, mejia catheter placed. -Nephrology consulted, recommending decreased bicarb drip to 50 mL's per hour and fluid restriction of 1200 mL -Bicarb infusion completed. -Follow-up with urine cultures Severe Hypotension with lightheadedness, suspected secondary to dehydration from diarrhea Symptomatic bradycardia, resolved Acute non-anion gap metabolic acidosis resulting from diarrhea, resolved. -Resolved after treatment with IV fluids and bicarb infusion. Hypothyroidism -TSH 3.230 with free T4 of 1.22. -Continue daily medication regimen with levothyroxine. Mild superior endplate deformities at T12 and L1 -Patient asymptomatic at this time. -Follow up outpatient with orthospine as needed. CODE STATUS: No Code DVT prophylaxis: Heparin Discussed with: Patient and RN Anticipated discharge date: clinical course to determine Anticipated discharge place: Home A total of 39 minutes was spent on the care of this complex patient more than 50% of the time was spent in counseling and care coordination. I reviewed the documentation as provided by the ALAN above, who is the original author of this note. I agree with the documented assessment and plan, with the following changes: none Objective - Vital Signs Vital signs: Vital Signs Temp 98.6 F 11/16/21 07:36 Pulse 74 09/27/22 07:36 Resp 16 11/16/21 07:36 BP 150/66 11/16/21 07:36 Pulse Ox 94 L 11/16/21 07:36 FiO2 Intake & Output 11/15/21 11/16/21 11/16/21 18:59 06:59 18:59 Intake Total 540 Output Total 1150 1750 Balance -610 -1750 Intake: Oral 540 Output: Urine 1150 1750 Uretheral (Mejia) 1000 Other: Voiding Method Indwelling Catheter Indwelling Catheter - Labs CBC & Chem 7: 11/19/21 07:09 11/19/21 07:09 Labs: Abnormal Lab Results - Last 24 Hours (Table) 11/15/21 11/15/21 11/15/21 Range/Units 08:21 08:21 08:54 RBC 2.89 L (3.80-5.40) m/uL Hgb 9.1 L (11.4-16.0) gm/dL Hct 27.7 L (34.0-46.0) % Sodium 126 L (137-145) mmol/L Chloride 93 L (98-107) mmol/L BUN 37 H (7-17) mg/dL Creatinine 1.78 H (0.52-1.04) mg/dL Glucose 128 H (74-99) mg/dL Plasma Lactic Acid Carlos 2.2 H* (0.7-2.0) mmol/L Calcium 7.1 L (8.4-10.2) mg/dL AST 116 H (14-36) U/L ALT 104 H (4-34) U/L Total Protein 4.2 L (6.3-8.2) g/dL Albumin 2.6 L (3.5-5.0) g/dL Urine Appearance (Clear) Urine Protein (Negative) Urine Blood (Negative) Ur Leukocyte Esterase (Negative) Urine WBC (0-5) /hpf Triple Phos Crystals (None) /hpf Urine Bacteria (None) /hpf Urine Yeast (Budding) (None) /hpf 11/15/21 11/15/21 Range/Units 12:05 15:29 RBC (3.80-5.40) m/uL Hgb (11.4-16.0) gm/dL Hct (34.0-46.0) % Sodium (137-145) mmol/L Chloride (98-107) mmol/L BUN (7-17) mg/dL Creatinine (0.52-1.04) mg/dL Glucose (74-99) mg/dL Plasma Lactic Acid Carlos 0.6 L (0.7-2.0) mmol/L Calcium (8.4-10.2) mg/dL AST (14-36) U/L ALT (4-34) U/L Total Protein (6.3-8.2) g/dL Albumin (3.5-5.0) g/dL Urine Appearance Cloudy H (Clear) Urine Protein Trace H (Negative) Urine Blood Trace H (Negative) Ur Leukocyte Esterase Large H (Negative) Urine WBC 23 H (0-5) /hpf Triple Phos Crystals Rare H (None) /hpf Urine Bacteria Many H (None) /hpf Urine Yeast (Budding) Few H (None) /hpf
[2021-11-16] MEDS: CEFEPIME 1 GM in SODIUM CHLORIDE 0.9% 50 ML IVPB SCH ×2 (13:42→20:19)
[2021-11-16] MEDS: amLODIPine 5 MG TAB PO SCH (15:57)
[2021-11-16] MEDS: BENZOCAINE/MENTHOL LOZENG 1 EACH LOZENGE MUCOUS MEM PRN (18:17)
[2021-11-16] MEDS: ACETAMINOPHEN TAB 325 MG TAB PO PRN (18:17)
[2021-11-16] MEDS: ALPRAZolam 0.5 MG TAB PO SCH (20:19)
[2021-11-17] MEDS: HEPARIN SODIUM,PORCINE/PF 5,000 UNIT/0.5 ML SYRINGE SQ SCH ×3 (00:45→17:02)
[2021-11-17] MEDS: metroNIDAZOLE-NS PMX 500 MG in SALINE 1 100ML.BAG IVPB SCH ×3 (00:45→17:03)
[2021-11-17 06:05] LABS: Albumin 2.6 g/dL (3.5-5.0); Calcium 7.4 mg/dL (8.4-10.2); Magnesium 1.9 mg/dL (1.6-2.3); Potassium 3.7 mmol/L (3.5-5.1); Total Bilirubin 0.4 mg/dL (0.2-1.3); Total Protein 4.3 g/dL (6.3-8.2)
[2021-11-17 06:08] LABS: HGB 8.5 gm/dL (11.4-16.0); MCH 30.5 pg (25.0-35.0); MCHC 31.7 g/dL (31.0-37.0); MCV 96.4 fL (80.0-100.0); Mean Platelet Volume 9.4; Platelet Count 166 k/uL (150-450); RDW 13.9 % (11.5-15.5); WBC 7.4 k/uL (3.8-10.6)
[2021-11-17 06:10] LABS: Vancomycin,Random 13.9 ug/mL
[2021-11-17] MEDS: LEVOTHYROXINE 75 MCG TAB PO SCH (06:44)
[2021-11-17] MEDS: PANTOPRAZOLE 40 MG TABLET PO SCH ×2 (06:44→17:02)
[2021-11-17] MEDS: LACTATED RINGERS 1,000 ML IV SCH (06:45)
[2021-11-17] MEDS: CEFEPIME 1 GM in SODIUM CHLORIDE 0.9% 50 ML IVPB SCH ×2 (08:26→20:30)
[2021-11-17] MEDS ORDERED: FUROSEMIDE 10 MG/ML 2 ML VIAL IV SCH (09:00)
[2021-11-17] MEDS: amLODIPine 5 MG TAB PO SCH (09:00)
[2021-11-17] MEDS: TAMSULOSIN 0.4 MG CAP.ER.24H PO SCH (09:00)
[2021-11-17] MEDS ORDERED: VANCOMYCIN 1,000 MG in SODIUM CHLORIDE 0.9% 250 ML IVPB ONE (09:00)
[2021-11-17] MEDS ORDERED: POTASSIUM CHLORIDE ER 20 MEQ TAB.ER PO STA (10:15)
--- NOTE | 2021-11-17 10:16 | P.PN ---
Subjective Patient is seen in follow-up for acute kidney injury and hyponatremia. Renal function stable. Sodium level better. Blood pressure stable. Nonoliguric. Has a Person catheter. No vomiting or diarrhea. On nasal cannula. No active complaints. Vital signs are stable. General: Awake. No acute distress. HEENT: Head exam is unremarkable. On nasal cannula. LUNGS: Breath sounds decreased. HEART: Rate and Rhythm are regular. ABDOMEN: Soft, no distention. EXTREMITITES: Trace edema. Objective - Vital Signs Vital signs: Vital Signs Temp 97.9 F 11/17/21 07:32 Pulse 75 11/17/21 07:32 Resp 17 11/17/21 07:32 BP 129/68 11/17/21 07:32 Pulse Ox 96 11/17/21 07:32 FiO2 Intake & Output 11/16/21 11/17/21 11/17/21 18:59 06:59 18:59 Intake Total 580 118 Output Total 2100 2049 650 Balance -1520 -2049 -532 Weight 62.5 kg Intake: Oral 580 118 Output: Urine 2099 2049 650 Uretheral (Person) 350 Other: Voiding Method Indwelling Catheter Indwelling Catheter # Bowel Movements 1 - Labs CBC & Chem 7: 11/17/21 05:03 11/17/21 05:03 Labs: Abnormal Lab Results - Last 24 Hours (Table) 11/17/21 11/17/21 Range/Units 05:03 05:03 RBC 2.80 L (3.80-5.40) m/uL Hgb 8.5 L (11.4-16.0) gm/dL Hct 27.0 L (34.0-46.0) % Sodium 130 L (137-145) mmol/L Chloride 97 L (98-107) mmol/L BUN 34 H (7-17) mg/dL Creatinine 1.79 H (0.52-1.04) mg/dL Calcium 7.4 L (8.4-10.2) mg/dL AST 45 H (14-36) U/L ALT 61 H (4-34) U/L Total Protein 4.3 L (6.3-8.2) g/dL Albumin 2.6 L (3.5-5.0) g/dL Microbiology - Last 24 Hours (Table) 11/16/21 15:40 Urine Culture - Preliminary Urine,Catheterized Assessment and Plan Plan: Assessment: 1. Acute kidney injury mostly prerenal secondary to severe sepsis. Creatinine was 2.26 on admission - 1.79 today. No hydronephrosis noted on kidney ultrasound. Kidneys noted to be atrophic. 2. Chronic kidney disease stage IIIB with baseline creatinine 1.5-1.6 secondary to nephrosclerosis. 3. Hyponatremia from poor solute intake. Urine sodium 36 and urine osmolality for 10. TSH normal. Better. Hypervolemic. 4. Metabolic acidosis secondary to GI losses and acute kidney injury. Status post bicarb drip. Resolved. 5. Severe sepsis. Cultures pending. On antibiotics. UA suggestive of UTI. 6. Urinary retention. Has a Person catheter. On Flomax. 7. Acute on chronic diastolic CHF with mild to moderate mitral regurgitation. 8. Hypokalemia from diuresis. 9. Anemia of chronic kidney disease. Rule out iron deficiency. Plan: Maintain IV Lasix -increase to twice a day. Encourage oral intake. Maintain fluid restriction. Replace potassium. Continue to monitor renal function and urine output. Check iron studies.
--- NOTE | 2021-11-17 11:26 | P.PN ---
Subjective This is a pleasant 81-year-old female patient with history of chronic kidney disease, duodenal antral ulcer which were showed to be healed in October 2020 and history of anemia, hypertension. 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 Denies history of diabetes or hyperlipidemia. Presented to the emergency department via EMS after developing some significant weakness and dizziness at home. She apparently was on her couch felt as if she had to go to the bathroom to have a bowel movement and when she got up she lowered herself to the floor because she was quite weak. She had been having some diarrhea at home which she has quite frequently. Upon arrival it is noted in the ER notes that the patient's blood pressure was in the 70s systolic with a heart rate in the 20s. There was question of atrial fibrillation but upon review of the EKG it appears the patient had a AV block. Verapamil on hold. Labs on admission showed evidence of acute kidney injury with a creatinine of 2.26 with previous 1.65. Troponins negative 3. 11/17 Patient seen and examined at bedside, no complaints. Overall feeling well. Denies any chest pain, shortness of breath, lightheadedness or dizziness. Echo revealed 50-55%, mild to moderate mitral regurgitation. Telemetry reviewed, patient in sinus rhythm HR 70-80s, no bradycardia noted. BP improved after starting amlodipine 129/68 TSH rechecked and Free T4 within normal limits. Patient started on IV Lasix per nephrology Labs: Sodium 130, potassium 3.7, BUN 34, serum creatinine 1.7, Mag 1.9 GENERAL: Well-appearing, well-nourished and in no acute distress. NECK: Supple without JVD LUNGS: Breath sounds diminished in the bases to auscultation bilaterally. Respiration equal and unlabored. HEART: Regular rate and rhythm without murmurs, rubs or gallops. S1 and S2 heard. EXTREMITIES: Normal range of motion, no edema. No clubbing or cyanosis. Peripheral pulses intact. ASSESSMENT Symptoms of weakness and lightheadedness in the setting of hypotension and bradycardia, resolved. Dehydration Diarrhea Chronic kidney disease with acute kidney injury History of duodenal and antral ulcers, resolved Chronic diarrhea with intermittent constipation after use of Immodium PLAN Echo revealed EF 50-55%, Continue to hold verapamil. Continue amlodipine 5mg daily Nephrology following Continue cardiac telemetry No further changes from a cardiology perspective. We will follow the patient as needed. Please reconsult if needed. Nurse Practitioner note has been reviewed, I agree with a documented findings and plan of care. Patient was seen and examined. Objective - Vital Signs Vital signs: Vital Signs Temp 97.9 F 11/17/21 07:32 Pulse 75 11/17/21 07:32 Resp 17 11/17/21 07:32 BP 129/68 11/17/21 07:32 Pulse Ox 96 11/17/21 07:32 FiO2 Intake & Output 11/16/21 11/17/21 11/17/21 18:59 06:59 18:59 Intake Total 580 118 Output Total 2099 2049 650 Balance -152 -2049 -532 Weight 62.5 kg Intake: Oral 580 118 Output: Urine 2099 2049 650 Uretheral (Person) 350 Other: Voiding Method Indwelling Catheter Indwelling Catheter # Bowel Movements 1 - Labs CBC & Chem 7: 11/17/21 05:03 11/17/21 05:03 Labs: Abnormal Lab Results - Last 24 Hours (Table) 11/17/21 11/17/21 Range/Units 05:03 05:03 RBC 2.80 L (3.80-5.40) m/uL Hgb 8.5 L (11.4-16.0) gm/dL Hct 27.0 L (34.0-46.0) % Sodium 130 L (137-145) mmol/L Chloride 97 L (98-107) mmol/L BUN 34 H (7-17) mg/dL Creatinine 1.79 H (0.52-1.04) mg/dL Calcium 7.4 L (8.4-10.2) mg/dL AST 45 H (14-36) U/L ALT 61 H (4-34) U/L Total Protein 4.3 L (6.3-8.2) g/dL Albumin 2.6 L (3.5-5.0) g/dL Microbiology - Last 24 Hours (Table) 11/16/21 15:40 Urine Culture - Preliminary Urine,Catheterized
[2021-11-17] MEDS: allopurinoL 100 MG TAB PO SCH (12:04)
[2021-11-17] MEDS: BENZOCAINE/MENTHOL LOZENG 1 EACH LOZENGE MUCOUS MEM PRN (12:04)
[2021-11-17] MEDS: FERROUS SULFATE 325 MG TAB PO SCH (12:04)
--- NOTE | 2021-11-17 14:01 | P.PN ---
Subjective Progress Note Date: 11/17/21 No new complaints today. Patient is overall improving. Kidney function is stable. Sepsis is under control. Gen: awake, alert HEENT: normocephalic, atraumatic, good hearing acuity, moist mucous membranes Resp: good air exchange, breathing comfortably with no accessory muscle use CVS: good distal perfusion x 4, GI: soft, NTTP, ND : no SPT, no CVAT, mejia catheter is present MSK: no pitting edema, no clubbing Neuro: non-focal, moving all extremities Psych: cooperative, euthymic mood Assessment/plan: Moderate to severe rectosigmoid colitis Elevated LFTs, Improving. Severe Sepsis resulting from moderate to severe rectosigmoid colitis Hiatal hernia -GI consult placed, appreciate further recommendations. -Continue IV antibiotics with vancomycin, cefepime, and Flagyl pending further culture results. -Ultrasound kidney/renal and bladder revealed marked atrophy of the right kidney with marked cortical thinning but no renal mass hydronephrosis or calculus as well as mild atrophy of left kidney without significant cortical thinning and again no mass, hydronephrosis or calculus. -LFTs improving with rehydration and resolution of acidosis, C. diff negative. -Follow up with Blood cultures. Generalized anasarca and fluid volume overload Acute diastolic heart failure with preserved EF 50-55% Prominent dependent consolidation and lung volume loss involving bilateral lower lobes, unable to rule out underlying pneumonia or aspiration -Telemetry monitoring -Cardiology and pulmonary following, appreciate further recommendations. -Continue heart healthy diet with fluid restriction of 1200 mL -Daily weights -Strict I's and O's -Lasix per nephrology -Continue IV antibiotics as above Hyponatremia, improving. Acute kidney injury on stage III chronic kidney disease, improving. Urinary retention, mejia catheter placed. -Nephrology consulted, recommending decreased bicarb drip to 50 mL's per hour and fluid restriction of 1200 mL -Bicarb infusion completed. -Follow-up with urine cultures Severe Hypotension with lightheadedness, suspected secondary to dehydration from diarrhea Symptomatic bradycardia, resolved Acute non-anion gap metabolic acidosis resulting from diarrhea, resolved. -Resolved after treatment with IV fluids and bicarb infusion. Hypothyroidism -TSH 3.230 with free T4 of 1.22. -Continue daily medication regimen with levothyroxine. Mild superior endplate deformities at T12 and L1 -Patient asymptomatic at this time. -Follow up outpatient with orthospine as needed. CODE STATUS: No Code DVT prophylaxis: Heparin Anticipated discharge date: clinical course to determine Anticipated discharge place: Home Objective - Vital Signs Vital signs: Vital Signs Temp 97.4 F L 11/17/21 11:36 Pulse 73 11/17/21 11:36 Resp 18 11/17/21 11:36 BP 135/63 11/17/21 11:36 Pulse Ox 94 L 11/17/21 11:36 FiO2 Intake & Output 11/16/21 11/17/21 11/17/21 18:59 06:59 18:59 Intake Total 580 118 Output Total 2099 2049 650 Balance -1520 -2049 -532 Weight 62.5 kg Intake: Oral 580 118 Output: Urine 2099 2049 650 Uretheral (Mejia) 350 Other: Voiding Method Indwelling Catheter Indwelling Catheter Indwelling Catheter # Bowel Movements 1 - Labs CBC & Chem 7: 11/17/21 05:03 11/17/21 05:03 Labs: Abnormal Lab Results - Last 24 Hours (Table) 11/17/21 11/17/21 Range/Units 05:03 05:03 RBC 2.80 L (3.80-5.40) m/uL Hgb 8.5 L (11.4-16.0) gm/dL Hct 27.0 L (34.0-46.0) % Sodium 130 L (137-145) mmol/L Chloride 97 L (98-107) mmol/L BUN 34 H (7-17) mg/dL Creatinine 1.79 H (0.52-1.04) mg/dL Calcium 7.4 L (8.4-10.2) mg/dL AST 45 H (14-36) U/L ALT 61 H (4-34) U/L Total Protein 4.3 L (6.3-8.2) g/dL Albumin 2.6 L (3.5-5.0) g/dL Microbiology - Last 24 Hours (Table) 11/16/21 15:40 Urine Culture - Preliminary Urine,Catheterized
[2021-11-17] MEDS ORDERED: METHYL SALICYLATE/MENTHOL CREAM 5 OZ TOPICAL PRN (15:43)
[2021-11-17 16:13] LABS: % Iron Saturation 16.6 (12.00-45.00)
--- NOTE | 2021-11-17 16:14 | P.CONS ---
History of Present Illness - Reason for Consult Consult date: 11/17/21 Colitis Requesting physician: Lester Vega - Chief Complaint Diarrhea, weakness - History of Present Illness This is a very pleasant 81-year-old female who presented to the emergency department 4 days ago with complaints of diarrhea, weakness, and fatigue. Patient states she thought she was dehydrated so came in for further evaluation. She states that she was very dizzy and lightheaded. She was found to be hyponatremic, hypotensive, and bradycardic. She was admitted for further evaluation. She has a past medical history of chronic kidney disease, hypertension, hypothyroidism, and chronic diarrhea. Patient states she intermittently has chronic constipation and chronic diarrhea. Gastroenterology was consulted for colitis. She was admitted given IV fluids. Yesterday she started complaining of some left lower quadrant discomfort however states she did not have any pain or cramping prior to her coming in. They did a CT of the abdomen and pelvis that reported patient was admitted and has been on IV antibiotics for suspected pneumonia, CT also showing generalized anasarca along with [id number] effusions. She states that diarrhea has improved, she actually is only passing gas with small amount of diarrhea with the passing of gas. She states abdominal pain has improved today. She's not had any nausea or vomiting and her appetite is good. She has been afebrile. She recently underwent an EGD for dysphagia on 10/06/[address] Lilly and had a patent Schatzki ring with dilation and a small hiatal hernia. Prior to that she did have a history of August 2020 for bleeding gastric and duodenal ulcer, with a repeat in September 2020 showing healed ulcers. Last colonoscopy was [address] Osuna which was normal. Review of Systems REVIEW OF SYSTEMS: CARDIOPULMONARY: No chest pain or shortness of breath. Gastrointestinal: Left lower quadrant abdominal pain. No nausea or vomiting. No hematemesis, coffee-ground emesis. History of chronic constipation/diarrhea. No rectal bleeding, or melena. GENITOURINARY: No dysuria or hematuria. MUSCULOSKELETAL: Reports normal range of motion. SKIN: No rashes. No jaundice. ENDOCRINE: No chills, fevers. No excessive weight gain or loss. No polydipsia or polyuria. PSYCHIATRIC: Unremarkable. NEUROLOGY: No change in mental status. Denies dizziness, headache. ENT: Vision unremarkable. CONSTITUTIONAL: No recent weight loss. Increased weakness and fatigue. Past Medical History Past Medical History: GERD/Reflux, GI Bleed, Hypertension, Osteoarthritis (OA), Renal Disease, Syncope, Thyroid Disorder, Vascular Disorder Additional Past Medical History / Comment(s): CKD stage III, IBS, past constip ation but diarrhea past few months, duodenal and antral ulcer/acute anemia with transfusion, chronic anemia, hiatal hernia, varicosities, L side sciatica, arthritis in neck and L hip, hypothyroid, sinus problems. History of Any Multi-Drug Resistant Organisms: None Reported Past Surgical History: Appendectomy, Cholecystectomy, Hysterectomy Additional Past Surgical History / Comment(s): D&C, EGD, colonoscopy, yovana cataracts Past Anesthesia/Blood Transfusion Reactions: No Reported Reaction Additional Past Anesthesia/Blood Transfusion Reaction / Comm: Pt has received blood in past without reaction. Past Psychological History: Anxiety, Depression Additional Psychological History / Comment(s): Pt resides alone. She is ind ependent. Smoking Status: Never smoker Past Alcohol Use History: None Reported Past Drug Use History: None Reported - Past Family History Father Family Medical History: Cancer Additional Family Medical History / Comment(s): Father at the age of 57yrs from cancer which pt thinks was esophageal. Mother Family Medical History: Hypertension Additional Family Medical History / Comment(s): Mother lived to be 97yrs old. Medications and Allergies Home Medications Medication Instructions Recorded Confirmed Type ALPRAZolam [Xanax] 0.5 mg PO HS 10/13/17 11/13/21 History Levothyroxine Sodium [Synthroid] 75 mcg PO DAILY 10/13/17 11/13/21 History Verapamil HCl [Verapamil ER] 120 mg PO W/BRKFST 10/13/17 11/13/21 History Citalopram Hydrobromide [CeleXA] 40 mg PO W/BRKFST 08/25/20 11/13/21 History allopurinoL [Zyloprim] 100 mg PO DAILY@1200 08/25/20 11/13/21 History Ferrous Sulfate [Iron] 325 mg PO DAILY@1200 11/13/21 11/13/21 History Pantoprazole Sodium [Protonix] 40 mg PO BID-W/MEALS 11/13/21 11/13/21 History Allergies Allergy/AdvReac Type Severity Reaction Status Date / Time No Known Allergies Allergy Verified 11/13/21 19:43 Physical Exam Vitals: Vital Signs Temp Pulse Resp BP Pulse Ox 11/17/21 07:32 97.9 F 75 17 129/68 96 11/17/21 03:45 98.4 F 68 16 142/69 95 11/17/21 01:43 90 11/17/21 00:44 98.1 F 72 15 150/67 93 L 11/16/21 19:30 99.4 F 78 17 128/63 93 L 11/16/21 16:00 98.3 F 78 17 154/71 95 11/16/21 14:00 77 17 11/16/21 11:51 98.4 F 77 18 171/79 94 L Intake and Output 11/16/21 11/17/21 11/17/21 22:59 06:59 14:59 Intake Total 360 Output Total 1200 0 650 Balance -840 -2049 -650 Intake: Oral 360 Output: Urine 1200 2049 650 Uretheral (Person) 350 Other: Voiding Method Indwelling Catheter Indwelling Catheter Weight 62.5 kg General appearance: The patient is alert, oriented, appears in no acute distress. HET: Head is normocephalic and atraumatic. Conjunctiva pink. Sclera anicteric. Neck: Supple without lymphadenopathy. Trachea midline. Heart: S1 S2. Regular rate and rhythm. Lungs: Clear to auscultation. Abdomen: Soft, nontender, nondistended with bowel sounds. No guarding or rigidity. Skin: No rashes. No jaundice. Extremities: Normal skin color and turgor. No pedal edema. Neurological: No focal deficits. Alert and oriented x3. Results CBC & Chem 7: 11/17/21 05:03 11/17/21 05:03 Labs: Abnormal Lab Results - Last 24 Hours (Table) 11/17/21 11/17/21 Range/Units 05:03 05:03 RBC 2.80 L (3.80-5.40) m/uL Hgb 8.5 L (11.4-16.0) gm/dL Hct 27.0 L (34.0-46.0) % Sodium 130 L (137-145) mmol/L Chloride 97 L (98-107) mmol/L BUN 34 H (7-17) mg/dL Creatinine 1.79 H (0.52-1.04) mg/dL Calcium 7.4 L (8.4-10.2) mg/dL AST 45 H (14-36) U/L ALT 61 H (4-34) U/L Total Protein 4.3 L (6.3-8.2) g/dL Albumin 2.6 L (3.5-5.0) g/dL Microbiology - Last 24 Hours (Table) 11/16/21 15:40 Urine Culture - Preliminary Urine,Catheterized Comments: CT abdomen and pelvis doubt contrast: Moderate to severe rectosigmoid colitis and proctitis. Moderate to severe surrounding inflammatory edema and mild pelvic ascites. No free air. Generalized anasarca along with mild small to moderate effusions. Query fluid overload state/third spacing. Prominent dependent consolidation volume loss involving the lower lobes. Correlate to exclude underlying pneumonia or aspiration. Person catheter in place bladder wall appears mildly thickened. Correlate to exclude cystitis. Mild superior endplate deformities at T12 and L1, new from 08/03/2018 but still age indeterm inate. Correlate for any focal pain at these levels. Small to moderate size hiatal hernia. Assessment and Plan (1) Colitis Narrative/Plan: 81-year-old female with a history of chronic constipation with intermittent diarrhea presented to the emergency department with weakness, fatigue, dizziness and diarrhea. Patient was found to be hyponatremic and hypotensive as well as bradycardic. At that time she had no complaints of abdominal pain, nausea or vomiting. However yesterday she developed some left lower quadrant discomfort and a CT of the abdomen and pelvis without contrast was obtained showing colitis. She denied any blood in her stool, or blood per rectum. Abdominal pain actually has improved at this point. No nausea or vomiting. Unknown etiology however likely infectious or inflammatory. Continue IV antibiotics. Last colonoscopy [address] Osuna, within normal colon. No plans on colonoscopy at this time. Current Visit: Yes Status: Acute Code(s): K52.9 - NONINFECTIVE GASTROENTERITIS AND COLITIS, UNSPECIFIED SNOMED Code(s): 73926472 (2) Normochromic normocytic anemia Current Visit: Yes Status: Acute Code(s): D64.9 - ANEMIA, UNSPECIFIED SNOMED Code(s): 69989350 (3) Chronic kidney disease Current Visit: No Status: Acute Code(s): N18.9 - CHRONIC KIDNEY DISEASE, UNSPECIFIED SNOMED Code(s): 526446798 (4) Hyponatremia Current Visit: No Status: Acute Code(s): E87.1 - HYPO-OSMOLALITY AND HYPONATREMIA SNOMED Code(s): 05694167 Plan: 1. Continue symptomatic and supportive care 2. Continue IV antibiotics 3. Advance to full liquid diet, then diet as tolerated 5. No plans on endoscopic evaluation at this time Thank you for this consultation, we will continue to follow. Dr. Sveta Barnard I agree with the dictator's note, documented as a scribe by Modesta Carrasquillo.
[2021-11-17] MEDS: ALPRAZolam 0.5 MG TAB PO SCH (20:30)
[2021-11-17] MEDS: FUROSEMIDE 10 MG/ML 2 ML VIAL IV SCH (20:30)
[2021-11-18] MEDS: HEPARIN SODIUM,PORCINE/PF 5,000 UNIT/0.5 ML SYRINGE SQ SCH ×4 (00:24→23:54)
[2021-11-18] MEDS: metroNIDAZOLE-NS PMX 500 MG in SALINE 1 100ML.BAG IVPB SCH ×4 (00:24→23:54)
[2021-11-18] MEDS: LEVOTHYROXINE 75 MCG TAB PO SCH (06:45)
[2021-11-18] MEDS: PANTOPRAZOLE 40 MG TABLET PO SCH ×2 (06:45→15:58)
[2021-11-18 08:24] LABS: Calcium 7.8 mg/dL (8.4-10.2); Magnesium 1.5 mg/dL (1.6-2.3); Potassium 3.9 mmol/L (3.5-5.1)
[2021-11-18] MEDS: FUROSEMIDE 10 MG/ML 2 ML VIAL IV SCH ×2 (09:32→19:57)
[2021-11-18] MEDS: amLODIPine 5 MG TAB PO SCH (09:42)
[2021-11-18] MEDS: TAMSULOSIN 0.4 MG CAP.ER.24H PO SCH (09:46)
[2021-11-18] MEDS ORDERED: POTASSIUM CHLORIDE ER 20 MEQ TAB.ER PO STA (10:28)
--- NOTE | 2021-11-18 10:31 | P.PN ---
Subjective Patient is seen in follow-up for acute kidney injury and hyponatremia. Renal function serially stable. Sodium level stable. Blood pressure stable. Nonoliguric. Has a Person catheter. No vomiting or diarrhea. On nasal cannula. No active complaints. Vital signs are stable. General: Awake. No acute distress. HEENT: Head exam is unremarkable. On nasal cannula. LUNGS: Breath sounds decreased. HEART: Rate and Rhythm are regular. ABDOMEN: Soft, no distention. EXTREMITITES: Trace edema. Objective - Vital Signs Vital signs: Vital Signs Temp 98.0 F 11/18/21 08:00 Pulse 81 11/18/21 08:00 Resp 16 11/18/21 08:00 BP 113/62 11/18/21 08:00 Pulse Ox 96 11/18/21 08:00 FiO2 Intake & Output 11/17/21 11/18/21 11/18/21 18:59 06:59 18:59 Intake Total 866 120 Output Total 2800 1000 Balance -1934 -1000 120 Weight 56.7 kg Intake: Oral 866 120 Output: Urine 2800 1000 Other: Voiding Method Indwelling Catheter Indwelling Catheter # Bowel Movements 1 - Labs CBC & Chem 7: 11/17/21 05:03 11/18/21 07:22 Labs: Abnormal Lab Results - Last 24 Hours (Table) 11/17/21 11/18/21 Range/Units 05:03 07:22 Sodium 130 L (137-145) mmol/L Chloride 95 L (98-107) mmol/L BUN 29 H (7-17) mg/dL Creatinine 1.67 H (0.52-1.04) mg/dL Glucose 116 H (74-99) mg/dL Calcium 7.8 L (8.4-10.2) mg/dL Magnesium 1.5 L (1.6-2.3) mg/dL Iron 35 L (50-170) ug/dL TIBC 211 L (228-460) ug/dL Transferrin 151.0 L (204.0-354.0) mg/dL Ferritin 367.0 H (10.0-291.0) ng/mL Microbiology - Last 24 Hours (Table) 11/17/21 12:00 Stool Culture - Preliminary Stool 11/16/21 15:40 Urine Culture - Final Urine,Catheterized Assessment and Plan Plan: Assessment: 1. Acute kidney injury mostly prerenal secondary to severe sepsis. Creatinine was 2.26 on admission - 1.67 today. No hydronephrosis noted on kidney ultrasound. Kidneys noted to be atrophic. 2. Chronic kidney disease stage IIIB with baseline creatinine 1.5-1.6 secondary to nephrosclerosis. 3. Hyponatremia from poor solute intake. Urine sodium 36 and urine osmolality 410. TSH normal. Hypervolemic. 4. Metabolic acidosis secondary to GI losses and acute kidney injury. Status post bicarb drip. Resolved. 5. Severe sepsis. Cultures pending. On antibiotics. UA suggestive of UTI. 6. Urinary retention. Has a Person catheter. On Flomax. 7. Acute on chronic diastolic CHF with mild to moderate mitral regurgitation. 8. Hypokalemia from diuresis. Potassium 3.9 today. 9. Anemia of chronic kidney disease. Iron deficiency noted. 10. Hypomagnesemia from diuresis. Plan: Maintain IV Lasix. Encourage oral intake. Maintain fluid restriction. Replace potassium and magnesium. Continue to monitor renal function and urine output. Add IV iron. Hold amlodipine for systolic blood pressure less than 120. Samsca 7.5 mg once today.
[2021-11-18] MEDS: CEFEPIME 1 GM in SODIUM CHLORIDE 0.9% 50 ML IVPB SCH (10:45)
[2021-11-18] MEDS ORDERED: TOLVAPTAN 15 MG 1/2 TABLET PO ONE (12:00)
[2021-11-18] MEDS: SODIUM FERRIC GLUCONAT-SUCROSE 125 MG in SODIUM CHLORIDE 0.9% 100 ML IVPB SCH (12:03)
--- NOTE | 2021-11-18 12:04 | P.PN ---
Subjective Progress Note Date: 11/18/21 No new complaints today. Patient is overall improving. Kidney function is stable. Sepsis is under control. Gen: awake, alert HEENT: normocephalic, atraumatic, good hearing acuity, moist mucous membranes Resp: good air exchange, breathing comfortably with no accessory muscle use CVS: good distal perfusion x 4, GI: soft, NTTP, ND : no SPT, no CVAT, mejia catheter is present MSK: no pitting edema, no clubbing Neuro: non-focal, moving all extremities Psych: cooperative, euthymic mood Assessment/plan: Moderate to severe rectosigmoid colitis Elevated LFTs, Improving. Severe Sepsis resulting from moderate to severe rectosigmoid colitis Hiatal hernia -GI consult placed, appreciate further recommendations. -Abx de-escalated to ceftriaxone and flagyl - will treat with 7 day course total of abx between IV and PO upon discharge -Ultrasound kidney/renal and bladder revealed marked atrophy of the right kidney with marked cortical thinning but no renal mass hydronephrosis or calculus as well as mild atrophy of left kidney without significant cortical thinning and again no mass, hydronephrosis or calculus. -Follow up with Blood cultures = NGTD Generalized anasarca and fluid volume overload Acute diastolic heart failure with preserved EF 50-55% Prominent dependent consolidation and lung volume loss involving bilateral lower lobes, unable to rule out underlying pneumonia or aspiration -Telemetry monitoring -Cardiology and pulmonary following, appreciate further recommendations. -Continue heart healthy diet with fluid restriction of 1200 mL -Daily weights -Strict I's and O's -Lasix per nephrology -Continue IV antibiotics as above Hyponatremia, improving. Acute kidney injury on stage III chronic kidney disease, improving. Urinary retention, mejia catheter placed. -Nephrology consulted, recommending decreased bicarb drip to 50 mL's per hour and fluid restriction of 1200 mL -Bicarb infusion completed. -Follow-up with urine cultures = No growth Severe Hypotension with lightheadedness, suspected secondary to dehydration from diarrhea Symptomatic bradycardia, resolved Acute non-anion gap metabolic acidosis resulting from diarrhea, resolved. -Resolved after treatment with IV fluids and bicarb infusion. Hypothyroidism -TSH 3.230 with free T4 of 1.22. -Continue daily medication regimen with levothyroxine. Mild superior endplate deformities at T12 and L1 -Patient asymptomatic at this time. -Follow up outpatient with orthospine as needed. CODE STATUS: No Code DVT prophylaxis: Heparin Anticipated discharge date: clinical course to determine Anticipated discharge place: Home Objective - Vital Signs Vital signs: Vital Signs Temp 98.0 F 11/18/21 08:00 Pulse 81 11/18/21 08:00 Resp 16 11/18/21 08:00 BP 113/62 11/18/21 08:00 Pulse Ox 96 11/18/21 08:00 FiO2 Intake & Output 11/17/21 11/18/21 11/18/21 18:59 06:59 18:59 Intake Total 866 120 Output Total 2800 1000 Balance -1934 -1000 120 Weight 56.7 kg Intake: Oral 866 120 Output: Urine 2800 1000 Other: Voiding Method Indwelling Catheter Indwelling Catheter Indwelling Catheter # Bowel Movements 1 - Labs CBC & Chem 7: 11/17/21 05:03 11/18/21 07:22 Labs: Abnormal Lab Results - Last 24 Hours (Table) 11/17/21 11/18/21 Range/Units 05:03 07:22 Sodium 130 L (137-145) mmol/L Chloride 95 L (98-107) mmol/L BUN 29 H (7-17) mg/dL Creatinine 1.67 H (0.52-1.04) mg/dL Glucose 116 H (74-99) mg/dL Calcium 7.8 L (8.4-10.2) mg/dL Magnesium 1.5 L (1.6-2.3) mg/dL Iron 35 L (50-170) ug/dL TIBC 211 L (228-460) ug/dL Transferrin 151.0 L (204.0-354.0) mg/dL Ferritin 367.0 H (10.0-291.0) ng/mL Microbiology - Last 24 Hours (Table) 11/17/21 12:00 Stool Culture - Preliminary Stool 11/16/21 15:40 Urine Culture - Final Urine,Catheterized
[2021-11-18] MEDS: allopurinoL 100 MG TAB PO SCH (12:25)
[2021-11-18] MEDS: MAGNESIUM SULFATE-D5W PMX 1 GM in DEXTROSE/WATER 1 100ML.BAG IVPB SCH ×2 (12:36→15:57)
--- NOTE | 2021-11-18 16:16 | P.PN ---
Subjective Progress Note Date: 11/18/21 Principal diagnosis: Colitis This is a very pleasant 81-year-old female who presented to the emergency department 4 days ago with complaints of diarrhea, weakness, and fatigue. P at[place]a states she thought she was dehydrated so came in for further evaluation. She states that she was very dizzy and lightheaded. She was found to be hyponatremic, hypotensive, and bradycardic. She was admitted for further evaluation. She has a past medical history of chronic kidney disease, h ypertension, hypothyroidism, and chronic diarrhea. Patient states she intermittently has chronic constipation and chronic diarrhea. Gastroenterology was consulted for colitis. She was admitted given IV fluids. Yesterday she started complaining of some left lower quadrant discomfort however states she did not have any pain or cramping prior to her coming in. They did a CT of the abdomen and pelvis that reported patient was admitted and has been on IV antibiotics for suspected pneumonia, CT also showing generalized anasarca along with [id number] effusions. She states that diarrhea has improved, she actually is only passing gas with small amount of diarrhea with the passing of gas. She states abdominal pain has improved today. She's not had any nausea or vomiting and her appetite is good. She has been afebrile. She recently underwent an EGD for dysphagia on 10/06/[address] Lilly and had a patent Schatzki ring with dilation and a small hiatal hernia. Prior to that she did have a history of August 2020 for bleeding gastric and duodenal ulcer, with a repeat in September 2020 showing healed ulcers. Last colonoscopy was [address] Osuna which was normal. 11/18/2021: Patient seen and examined as a follow-up. Continues to deny any abdominal pain, nausea or vomiting. States that she passes gas and she may have a little small amount of diarrhea at that time but no other diarrhea. She's been afebrile. She remains on IV antibiotics. Objective - Vital Signs Vital signs: Vital Signs Temp 98.0 F 11/18/21 08:00 Pulse 81 11/18/21 08:00 Resp 16 11/18/21 08:00 BP 113/62 11/18/21 08:00 Pulse Ox 96 11/18/21 08:00 FiO2 Intake & Output 11/17/21 11/18/21 11/18/21 18:59 06:59 18:59 Intake Total 866 Output Total 2800 1000 Balance -1933 -999 Weight 56.7 kg Intake: Oral 866 Output: Urine 2800 1000 Other: Voiding Method Indwelling Catheter Indwelling Catheter # Bowel Movements 1 - Exam General appearance: The patient is alert, oriented, appears in no acute distress. HET: Head is normocephalic and atraumatic. Conjunctiva pink. Sclera anicteric. Neck: Supple without lymphadenopathy. Abdomen: Soft, nontender, nondistended with bowel sounds. No guarding or rigidity. Extremities: Normal skin color and turgor. No pedal edema Skin: No rashes, no jaundice Neurological: No focal deficits. Alert and oriented -3. - Labs CBC & Chem 7: 11/17/21 05:03 11/18/21 07:22 Labs: Abnormal Lab Results - Last 24 Hours (Table) 11/17/21 11/18/21 Range/Units 05:03 07:22 Sodium 130 L (137-145) mmol/L Chloride 95 L (98-107) mmol/L BUN 29 H (7-17) mg/dL Creatinine 1.67 H (0.52-1.04) mg/dL Glucose 116 H (74-99) mg/dL Calcium 7.8 L (8.4-10.2) mg/dL Magnesium 1.5 L (1.6-2.3) mg/dL Iron 35 L (50-170) ug/dL TIBC 211 L (228-460) ug/dL Transferrin 151.0 L (204.0-354.0) mg/dL Ferritin 367.0 H (10.0-291.0) ng/mL Microbiology - Last 24 Hours (Table) 11/17/21 12:00 Stool Culture - Preliminary Stool 11/16/21 15:40 Urine Culture - Final Urine,Catheterized Assessment and Plan (1) Colitis Narrative/Plan: 81-year-old female with a history of chronic constipation with intermittent diarrhea presented to the emergency department with weakness, fatigue, dizziness and diarrhea. Patient was found to be hyponatremic and hypotensive as well as bradycardic. At that time she had no complaints of abdominal pain, nausea or vomiting. However yesterday she developed some left lower quadrant discomfort and a CT of the abdomen and pelvis without contrast was obtained showing colitis. She denied any blood in her stool, or blood per rectum. Abdominal pain actually has improved at this point. No nausea or vomiting. Unknown etiology however likely infectious or inflammatory. Continue IV antibiotics. Last colonoscopy [address] Osuna, within normal colon. No plans on colonoscopy at this time. Current Visit: Yes Status: Acute Code(s): K52.9 - NONINFECTIVE GASTROENTERITIS AND COLITIS, UNSPECIFIED SNOMED Code(s): 29833874 (2) Normochromic normocytic anemia Current Visit: Yes Status: Acute Code(s): D64.9 - ANEMIA, UNSPECIFIED SNOMED Code(s): 85426163 (3) Chronic kidney disease Current Visit: No Status: Acute Code(s): N18.9 - CHRONIC KIDNEY DISEASE, UNSPECIFIED SNOMED Code(s): 580634758 (4) Hyponatremia Current Visit: No Status: Acute Code(s): E87.1 - HYPO-OSMOLALITY AND HYPONATREMIA SNOMED Code(s): 83578508 Plan: 1. Continue symptomatic and supportive care 2. Continue IV antibiotics 3. Advanced a heart healthy diet 5. No plans on endoscopic evaluation at this time, diarrhea has improved Thank you for this consultation, we will continue to follow. Dr. Sveta Barnard I agree with the dictator's note, documented as a scribe by Modesta Carrasquillo.
[2021-11-18] MEDS: ALPRAZolam 0.5 MG TAB PO SCH (19:57)
[2021-11-18] MEDS: ACETAMINOPHEN TAB 325 MG TAB PO PRN (19:59)
[2021-11-19] MEDS: PANTOPRAZOLE 40 MG TABLET PO SCH ×2 (06:30→15:50)
[2021-11-19] MEDS: LEVOTHYROXINE 75 MCG TAB PO SCH (06:30)
[2021-11-19 07:35] LABS: Basophils % (A) 0 %; Eosinophils # (A) 0.3 k/uL (0-0.7); Eosinophils % (A) 3 %; HGB 9.7 gm/dL (11.4-16.0); Lymphocytes # (A) 1.6 k/uL (1.0-4.8); Lymphocytes % (A) 17 %; MCHC 32.2 g/dL (31.0-37.0); MCV 96.3 fL (80.0-100.0); Mean Platelet Volume 8.7; Monocytes # (A) 0.6 k/uL (0-1.0); Monocytes % (A) 6 %; Neutrophils % (A) 72 %; Platelet Count 201 k/uL (150-450); RBC 3.12 m/uL (3.80-5.40); RDW 13.6 % (11.5-15.5); WBC 9.7 k/uL (3.8-10.6)
[2021-11-19 07:57] LABS: Calcium 7.9 mg/dL (8.4-10.2); Potassium 4.2 mmol/L (3.5-5.1)
[2021-11-19] MEDS: SODIUM FERRIC GLUCONAT-SUCROSE 125 MG in SODIUM CHLORIDE 0.9% 100 ML IVPB SCH (09:31)
[2021-11-19] MEDS: metroNIDAZOLE-NS PMX 500 MG in SALINE 1 100ML.BAG IVPB SCH ×2 (09:32→15:54)
[2021-11-19] MEDS: HEPARIN SODIUM,PORCINE/PF 5,000 UNIT/0.5 ML SYRINGE SQ SCH ×2 (09:32→15:54)
[2021-11-19] MEDS: amLODIPine 5 MG TAB PO SCH (09:32)
[2021-11-19] MEDS: TAMSULOSIN 0.4 MG CAP.ER.24H PO SCH (09:32)
[2021-11-19] MEDS: FUROSEMIDE 10 MG/ML 2 ML VIAL IV SCH (09:33)
--- NOTE | 2021-11-19 09:38 | P.PN ---
Subjective Patient is seen in follow-up for acute kidney injury and hyponatremia. Renal function fairly stable. Sodium level better. Blood pressure stable. Nonoliguric. Has a Person catheter. No vomiting or diarrhea. On room air. No active complaints. Vital signs are stable. General: Awake. No acute distress. HEENT: Head exam is unremarkable. LUNGS: Breath sounds decreased. HEART: Rate and Rhythm are regular. ABDOMEN: Soft, no distention. EXTREMITITES: Trace edema. Objective - Vital Signs Vital signs: Vital Signs Temp 98.3 F 11/19/21 07:51 Pulse 80 11/19/21 08:00 Resp 13 11/19/21 08:00 BP 113/63 11/19/21 07:51 Pulse Ox 95 11/19/21 09:03 FiO2 Intake & Output 11/18/21 11/19/21 11/19/21 18:59 06:59 18:59 Intake Total 120 550 118 Output Total 1000 2850 300 Balance -880 -2300 -182 Intake: Intake, IV Titration 100 Amount metroNIDAZOLE-NS PMX 500 100 mg In Saline 1 100ml.bag @ 100 mls/hr IVPB Q8HR [facility] Rx#:[id number] Oral 120 450 118 Output: Urine 1000 2850 300 Uretheral (Person) 1000 Other: Voiding Method Indwelling Catheter Indwelling Catheter Indwelling Catheter - Labs CBC & Chem 7: 11/19/21 07:09 11/19/21 07:09 Labs: Abnormal Lab Results - Last 24 Hours (Table) 11/19/21 11/19/21 Range/Units 07:09 07:09 RBC 3.12 L (3.80-5.40) m/uL Hgb 9.7 L (11.4-16.0) gm/dL Hct 30.0 L (34.0-46.0) % Sodium 131 L (137-145) mmol/L Chloride 95 L (98-107) mmol/L Carbon Dioxide 31 H (22-30) mmol/L BUN 29 H (7-17) mg/dL Creatinine 1.75 H (0.52-1.04) mg/dL Calcium 7.9 L (8.4-10.2) mg/dL Assessment and Plan Plan: Assessment: 1. Acute kidney injury mostly prerenal secondary to severe sepsis. Creatinine was 2.26 on admission - 1.75 today. No hydronephrosis noted on kidney u ltrasound. Kidneys noted to be atrophic. 2. Chronic kidney disease stage IIIB with baseline creatinine 1.5-1.6 secondary to nephrosclerosis. 3. Hyponatremia from poor solute intake. Urine sodium 36 and urine osmolality 410. TSH normal. Hypervolemic. Improved. 4. Metabolic acidosis secondary to GI losses and acute kidney injury. Status post bicarb drip. Resolved. 5. Severe sepsis. Cultures pending. On antibiotics. UA suggestive of UTI. 6. Urinary retention. Has a Person catheter. On Flomax. 7. Acute on chronic diastolic CHF with mild to moderate mitral regurgitation. 8. Hypokalemia from diuresis. Potassium 4.2 today. 9. Anemia of chronic kidney disease. Iron deficiency noted. 10. Hypomagnesemia from diuresis. Replaced. Better. Plan: Stop IV Lasix and start oral Lasix 40 mg once daily. Encourage oral intake. Maintain fluid restriction. Continue to monitor renal function and urine output. Maintain IV iron. Hold amlodipine for systolic blood pressure less than 120. Status post Samsca yesterday. Repeat another dose today. DC Person catheter and monitor serial postvoid residuals to make sure no urinary retention. Repeat BMP and magnesium level 2-3 days postdischarge. Follow up outpatient in 1 week.
[2021-11-19] MEDS ORDERED: TOLVAPTAN 15 MG 1/2 TABLET PO ONE (11:00)
[2021-11-19 11:45] VITALS: BP 120/68; PULSE 72; RESP 18; TEMP 97.9
--- NOTE | 2021-11-19 12:22 | P.PN ---
Subjective Progress Note Date: 11/19/21 No new complaints today. Patient is overall improving. Kidney function is stable. Sepsis is under control. Pt does appear to be less independent today - family and patient requesting rehab placement. Insurance auth is pending. Gen: awake, alert HEENT: normocephalic, atraumatic, good hearing acuity, moist mucous membranes Resp: good air exchange, breathing comfortably with no accessory muscle use CVS: good distal perfusion x 4, GI: soft, NTTP, ND : no SPT, no CVAT, mejia catheter is present MSK: no pitting edema, no clubbing Neuro: non-focal, moving all extremities Psych: cooperative, euthymic mood Assessment/plan: Moderate to severe rectosigmoid colitis Elevated LFTs, Improving. Severe Sepsis resulting from moderate to severe rectosigmoid colitis Hiatal hernia -GI consult placed, appreciate further recommendations. -Abx de-escalated to ceftriaxone and flagyl - will treat with 7 day course total of abx between IV and PO upon discharge -Ultrasound kidney/renal and bladder revealed marked atrophy of the right kidney with marked cortical thinning but no renal mass hydronephrosis or calculus as well as mild atrophy of left kidney without significant cortical thinning and again no mass, hydronephrosis or calculus. -Follow up with Blood cultures = NGTD Generalized anasarca and fluid volume overload Acute diastolic heart failure with preserved EF 50-55% Prominent dependent consolidation and lung volume loss involving bilateral lower lobes, unable to rule out underlying pneumonia or aspiration -Telemetry monitoring -Cardiology and pulmonary following, appreciate further recommendations. -Continue heart healthy diet with fluid restriction of 1200 mL -Daily weights -Strict I's and O's -Lasix per nephrology -Continue IV antibiotics as above Hyponatremia, improving. Acute kidney injury on stage III chronic kidney disease, improving. Urinary retention, mejia catheter placed. -Nephrology consulted, recommending decreased bicarb drip to 50 mL's per hour and fluid restriction of 1200 mL -Bicarb infusion completed. -Follow-up with urine cultures = No growth Severe Hypotension with lightheadedness, suspected secondary to dehydration from diarrhea Symptomatic bradycardia, resolved Acute non-anion gap metabolic acidosis resulting from diarrhea, resolved. -Resolved after treatment with IV fluids and bicarb infusion. Hypothyroidism -TSH 3.230 with free T4 of 1.22. -Continue daily medication regimen with levothyroxine. Mild superior endplate deformities at T12 and L1 -Patient asymptomatic at this time. -Follow up outpatient with orthospine as needed. CODE STATUS: No Code DVT prophylaxis: Heparin Anticipated discharge date: clinical course to determine Anticipated discharge place: Home Objective - Vital Signs Vital signs: Vital Signs Temp 97.9 F 11/19/21 11:44 Pulse 72 11/19/21 11:44 Resp 18 11/19/21 11:44 BP 120/68 11/19/21 11:44 Pulse Ox 96 11/19/21 11:44 FiO2 Intake & Output 11/18/21 11/19/21 11/19/21 18:59 06:59 18:59 Intake Total 120 550 118 Output Total 1000 2850 300 Balance -880 -2300 -182 Intake: Intake, IV Titration 100 Amount metroNIDAZOLE-NS PMX 500 100 mg In Saline 1 100ml.bag @ 100 mls/hr IVPB Q8HR [facility] Rx#:[id number] Oral 120 450 118 Output: Urine 1000 2850 300 Uretheral (Mejia) 1000 Other: Voiding Method Indwelling Catheter Indwelling Catheter Indwelling Catheter - Labs CBC & Chem 7: 11/19/21 07:09 11/19/21 07:09 Labs: Abnormal Lab Results - Last 24 Hours (Table) 11/19/21 11/19/21 Range/Units 07:09 07:09 RBC 3.12 L (3.80-5.40) m/uL Hgb 9.7 L (11.4-16.0) gm/dL Hct 30.0 L (34.0-46.0) % Sodium 131 L (137-145) mmol/L Chloride 95 L (98-107) mmol/L Carbon Dioxide 31 H (22-30) mmol/L BUN 29 H (7-17) mg/dL Creatinine 1.75 H (0.52-1.04) mg/dL Calcium 7.9 L (8.4-10.2) mg/dL
--- NOTE | 2021-11-19 13:04 | P.PN ---
Subjective Progress Note Date: 11/19/21 Principal diagnosis: Colitis This is a very pleasant 81-year-old female who presented to the emergency department 4 days ago with complaints of diarrhea, weakness, and fatigue. P atient states she thought she was dehydrated so came in for further evaluation. She states that she was very dizzy and lightheaded. She was found to be hyponatremic, hypotensive, and bradycardic. She was admitted for further evaluation. She has a past medical history of chronic kidney disease, h ypertension, hypothyroidism, and chronic diarrhea. Patient states she intermittently has chronic constipation and chronic diarrhea. Gastroenterology was consulted for colitis. She was admitted given IV fluids. Yesterday she started complaining of some left lower quadrant discomfort however states she did not have any pain or cramping prior to her coming in. They did a CT of the abdomen and pelvis that reported patient was admitted and has been on IV antibiotics for suspected pneumonia, CT also showing generalized anasarca along with [id number] effusions. She states that diarrhea has improved, she actually is only passing gas with small amount of diarrhea with the passing of gas. She states abdominal pain has improved today. She's not had any nausea or vomiting and her appetite is good. She has been afebrile. She recently underwent an EGD for dysphagia on 10/06/[address] Lilly and had a patent Schatzki ring with dilation and a small hiatal hernia. Prior to that she did have a history of August 2020 for bleeding gastric and duodenal ulcer, with a repeat in September 2020 showing healed ulcers. Last colonoscopy was [address] Osuna which was normal. 11/18/2021: Patient seen and examined as a follow-up. Continues to deny any abdominal pain, nausea or vomiting. States that she passes gas and she may have a little small amount of diarrhea at that time but no other diarrhea. She's been afebrile. She remains on IV antibiotics. 11/19/2021: Patient is seen as follow-up. She continues to deny abdominal pain, nausea or vomiting. Her stool is more formed. She is only going small amounts and diarrhea has resolved. She's been afebrile. Objective - Vital Signs Vital signs: Vital Signs Temp 98.3 F 11/19/21 07:51 Pulse 80 11/19/21 08:00 Resp 13 11/19/21 08:00 BP 113/63 11/19/21 07:51 Pulse Ox 94 L 11/19/21 07:51 FiO2 Intake & Output 11/18/21 11/19/21 11/19/21 18:59 06:59 18:59 Intake Total 120 550 118 Output Total 1000 2850 Balance -880 -2300 118 Intake: Intake, IV Titration 100 Amount metroNIDAZOLE-NS PMX 500 100 mg In Saline 1 100ml.bag @ 100 mls/hr IVPB Q8HR [facility] Rx#:[id number] Oral 120 450 118 Output: Urine 1000 2850 Uretheral (Person) 1000 Other: Voiding Method Indwelling Catheter Indwelling Catheter Indwelling Catheter - Exam General appearance: The patient is alert, oriented, appears in no acute distress. HET: Head is normocephalic and atraumatic. Conjunctiva pink. Sclera anicteric. Neck: Supple without lymphadenopathy. Abdomen: Soft, nontender, nondistended with bowel sounds. No guarding or rigidity. Extremities: Normal skin color and turgor. No pedal edema Skin: No rashes, no jaundice Neurological: No focal deficits. Alert and oriented -3. - Labs CBC & Chem 7: 11/19/21 07:09 11/19/21 07:09 Labs: Abnormal Lab Results - Last 24 Hours (Table) 11/19/21 11/19/21 Range/Units 07:09 07:09 RBC 3.12 L (3.80-5.40) m/uL Hgb 9.7 L (11.4-16.0) gm/dL Hct 30.0 L (34.0-46.0) % Sodium 131 L (137-145) mmol/L Chloride 95 L (98-107) mmol/L Carbon Dioxide 31 H (22-30) mmol/L BUN 29 H (7-17) mg/dL Creatinine 1.75 H (0.52-1.04) mg/dL Calcium 7.9 L (8.4-10.2) mg/dL Assessment and Plan (1) Colitis Narrative/Plan: 81-year-old female with a history of chronic constipation with intermittent diarrhea presented to the emergency department with weakness, fatigue, dizziness and diarrhea. Patient was found to be hyponatremic and hypotensive as well as bradycardic. At that time she had no complaints of abdominal pain, nausea or vomiting. However yesterday she developed some left lower quadrant discomfort and a CT of the abdomen and pelvis without contrast was obtained showing colitis. She denied any blood in her stool, or blood per rectum. Abdominal pain actually has improved at this point. No nausea or vomiting. Unknown etiology however likely infectious or inflammatory. Continue IV antibiotics. Last colonoscopy [address] Osuna, within normal colon. No plans on colonoscopy at this time. Current Visit: Yes Status: Acute Code(s): K52.9 - NONINFECTIVE GASTROENTERITIS AND COLITIS, UNSPECIFIED SNOMED Code(s): 59789302 (2) Normochromic normocytic anemia Current Visit: Yes Status: Acute Code(s): D64.9 - ANEMIA, UNSPECIFIED SNOMED Code(s): 36058999 (3) Chronic kidney disease Current Visit: No Status: Acute Code(s): N18.9 - CHRONIC KIDNEY DISEASE, UNSPECIFIED SNOMED Code(s): 447634368 (4) Hyponatremia Current Visit: No Status: Acute Code(s): E87.1 - HYPO-OSMOLALITY AND HYPONATREMIA SNOMED Code(s): 69181760 Plan: 1. Continue symptomatic and supportive care 2. Plans on endoscopic evaluation at this time, diarrhea has improved. 3. Patient cleared for discharge from gastroenterology once otherwise medically cleared. Thank you for this consultation, we will sign off at this time. Dr. Sveta Barnard I agree with the dictator's note, documented as a scribe by Modesta Carrasquillo.
[2021-11-19 13:31] VITALS: BMI 24.4
--- NOTE | 2021-11-19 15:39 | P.DS ---
Providers Date of admission: 11/13/21 20:03 Expected date of discharge: 11/19/21 Attending physician: Tea Jc MD Consults: 11/13/21 20:03 Consult Physician Urgent Consulting Provider: Yumiko Walker Consult Reason/Comments: Atrial fibrillation, hypotensive episode Do you want consulting provider notified?: Already Contacted Consult Physician Urgent Consulting Provider: Ronald Quintero Consult Reason/Comments: Intensive care management, Do you want consulting provider notified?: Already Contacted 11/14/21 13:27 Consult Physician Routine Consulting Provider: Aníbal Cesar Consult Reason/Comments: hyponatremia Do you want consulting provider notified?: Yes 11/16/21 12:12 Consult Physician Routine Consulting Provider: Darlene Barnard Consult Reason/Comments: LLQ and RLQ pain with diarrhea, CT moderate to s evere rectosigmoid colitis Do you want consulting provider notified?: Yes Primary care physician: [facility] Course: Moderate to severe rectosigmoid colitis Elevated LFTs, Improving. Severe Sepsis resulting from moderate to severe rectosigmoid colitis Hiatal hernia Leukocytosis, resolved Generalized anasarca and fluid volume overload Acute diastolic heart failure with preserved EF 50-55% Generalized anasarca with mild to moderate effusions Prominent dependent consolidation and lung volume loss involving bilateral lower lobes, unable to rule out underlying pneumonia or aspiration Hyponatremia, improving. Acute kidney injury on stage III chronic kidney disease, improving. Urinary retention, mejia catheter placed. Severe Hypotension with lightheadedness, suspected secondary to dehydration from diarrhea Symptomatic bradycardia, resolved Acute non-anion gap metabolic acidosis resulting from diarrhea, resolved. Hypothyroidism Mild superior endplate deformities at T12 and L1 Patient is a very pleasant 81-year-old female with a past medical history of chronic kidney disease, hypertension, and hypothyroidism. She presented to the emergency room on 11/13/21 with complaints of lightheadedness and fatigue. Pt underwent full evaluation in the emergency department. Initial EKG was completed revealing sinus bradycardia with occasional PAC at 52 bpm with an incomplete right bundle-branch, there were no T-wave or ST abnormalities showing no signs of acute ischemia. Repeat EKG revealed sinus bradycardia at 59 bpm with incomplete right bundle branch block. Chest x-ray completed showing mild pulmonary vascular congestion. CBC revealing normocytic normochromic anemia with hemoglobin stable at 9.8 which is at baseline level. Coags normal findings. CMP revealing hyponatremia with sodium of 127, and non-anion gap meta bolic acidosis with lactate of 3.2, chloride of 101, carbon dioxide of 12, an anion gap of 14, acute on chronic kidney injury with BUN of 44, creatinine 2.26, and GFR of 20 with baseline creatinine of 1.6, Elevated renal function with AST of 310 and ALT of 156. Troponin was negative at less than 0.012. Urinalysis cloudy and dark brown in color positive for protein, ketones, and bilirubin but negative for infection. C. diff negative and Covid PCR also negative. Patient received a 1 L bolus of 0.9% normal saline and was started on sodium bicarb infusion. Patient admitted under our services with consultation to cardiology, intensive care, and nephrology. Ultrasound kidney/renal and bladder revealed marked atrophy of the right kidney with marked cortical thinning but no renal mass hydronephrosis or calculus as well as mild atrophy of left kidney without significant cortical thinning and again no mass, hydronephrosis or calculus. Overnight on 11/14/21, patient spiked an isolated fever of 100.6F. She was started on empiric antibiotics with vancomycin, cefepime, and Flagyl pending further results. CT abdomen and pelvis revealing moderate to severe rectosigmoid colitis and proctitis with moderate to severe surrounding inflammatory edema and mild pelvic ascites with no free air, generalized and eschars with mild to moderate effusions, prominent dependent consolidation and volume loss involving the lower lobes, unable to rule out underlying pneumonia or aspiration, mild superior endplate deformities at T12 and L1, and small to moderate sized hiatal hernia. Chest x-ray revealing continued mild cardiomegaly with pulmonary venous congestion and interstitial edema with small effusions. Pts sodium and kidney function improved with diuresis. Pts sepsis resolved with abx - no culture data available to guide abx duration. She was downtitrated to ceftriaxone/flagyl, then d/c'd with cefdinir/flagyl to complete 7 day course. Pt initially did well with PT, but did have some deconditioning due to prolonged hospitalization - she was therefore d/c'd to rehab. I spent 45 minutes coordinating this complex discharge. See same day progress note for physical exam. . Patient Condition at Discharge: Good Plan - Discharge Summary Discharge Rx Participant: No New Discharge Prescriptions: New metroNIDAZOLE [Flagyl] 500 mg PO TID #3 tab Tamsulosin [Flomax] 0.4 mg PO PC-BRKFST cap Cefdinir [Omnicef] 300 mg PO Q12HR #2 capsule Acetaminophen Tab [Tylenol] 650 mg PO Q6HR PRN tab PRN Reason: Mild Pain Or Fever > 100.5 Furosemide [Lasix] 40 mg PO DAILY #30 tab amLODIPine [Norvasc] 5 mg PO DAILY #30 tab Continue ALPRAZolam [Xanax] 0.5 mg PO HS Verapamil HCl [Verapamil ER] 120 mg PO W/BRKFST Levothyroxine Sodium [Synthroid] 75 mcg PO DAILY allopurinoL [Zyloprim] 100 mg PO DAILY@1200 Ferrous Sulfate [Iron] 325 mg PO DAILY@1200 Pantoprazole Sodium [Protonix] 40 mg PO BID-W/MEALS Citalopram Hydrobromide [CeleXA] 40 mg PO W/BRKFST Discharge Medication List ALPRAZolam [Xanax] 0.5 mg PO HS 10/13/17 [History] Levothyroxine Sodium [Synthroid] 75 mcg PO DAILY 10/13/17 [History] Verapamil HCl [Verapamil ER] 120 mg PO W/BRKFST 10/13/17 [History] Citalopram Hydrobromide [CeleXA] 40 mg PO W/BRKFST 08/25/20 [History] allopurinoL [Zyloprim] 100 mg PO DAILY@1200 08/25/20 [History] Ferrous Sulfate [Iron] 325 mg PO DAILY@1200 11/13/21 [History] Pantoprazole Sodium [Protonix] 40 mg PO BID-W/MEALS 11/13/21 [History] Acetaminophen Tab [Tylenol] 650 mg PO Q6HR PRN tab 11/19/21 [Rx] Cefdinir [Omnicef] 300 mg PO Q12HR #2 capsule 11/19/21 [Rx] Furosemide [Lasix] 40 mg PO DAILY #30 tab 11/19/21 [Rx] Tamsulosin [Flomax] 0.4 mg PO PC-BRKFST cap 11/19/21 [Rx] amLODIPine [Norvasc] 5 mg PO DAILY #30 tab 11/19/21 [Rx] metroNIDAZOLE [Flagyl] 500 mg PO TID #3 tab 11/19/21 [Rx] Follow up Appointment(s)/Referral(s): Yumiko Walker MD [STAFF PHYSICIAN] - 10 Days Kayden Trammell MD [Primary Care Provider] - 1-2 days Discharge Disposition: TRANSFER TO SNF/ECF
[2021-11-19] MEDS: allopurinoL 100 MG TAB PO SCH (15:50)
[2021-11-20] MEDS ORDERED: FUROSEMIDE 40 MG TAB PO SCH (09:00)
== END 2021-11-19 17:28 | DRG 871 ==
LOC: EC 16:57 → 3SCARD 20:03
PROVIDERS: ADMIT Internal Medicine; ATTEND Internal Medicine
DX: A41.9 Sepsis, unspecified organism (principal); I50.33 Acute on chronic diastolic (congestive) heart failure; E87.1 Hypo-osmolality and hyponatremia; E87.2 Acidosis; I13.0 Hypertensive heart and chronic kidney disease with heart failure and stage 1 through stage 4 chronic kidney disease, or unspecified chronic kidney disease; N17.9 Acute kidney failure, unspecified; R18.8 Other ascites; D63.1 Anemia in chronic kidney disease; E03.9 Hypothyroidism, unspecified; D50.9 Iron deficiency anemia, unspecified; E83.42 Hypomagnesemia; E86.0 Dehydration; E87.6 Hypokalemia; F32.A Depression, unspecified; F41.9 Anxiety disorder, unspecified; K22.2 Esophageal obstruction; I34.0 Nonrheumatic mitral (valve) insufficiency; I44.30 Unspecified atrioventricular block; R65.20 Severe sepsis without septic shock; N18.32 Chronic kidney disease, stage 3b; R94.5 Abnormal results of liver function studies; K52.9 Noninfective gastroenteritis and colitis, unspecified; I45.10 Unspecified right bundle-branch block; I48.91 Unspecified atrial fibrillation; I49.1 Atrial premature depolarization; Z20.822 Contact with and (suspected) exposure to COVID-19; R33.9 Retention of urine, unspecified; Z87.11 Personal history of peptic ulcer disease; K44.9 Diaphragmatic hernia without obstruction or gangrene; M43.8X5 Other specified deforming dorsopathies, thoracolumbar region; M54.32 Sciatica, left side; K62.89 Other specified diseases of anus and rectum; R13.10 Dysphagia, unspecified; Z79.890 Hormone replacement therapy; Z91.81 History of falling; Z79.899 Other long term (current) drug therapy; Z82.49 Family history of ischemic heart disease and other diseases of the circulatory system; Z60.2 Problems related to living alone
CPT/HCPCS: 36415; 71045; 71046; 74176; 76770; 80048; 80053; 80202; 81001; 82728; 83540; 83550; 83605; 83735; 83930; 83935; 84300; 84439; 84443; 84484; 84550; 85025; 85027; 85610; 85730; 87045; 87046; 87086; 87324; 87635; 93005; 93306; 94760; 99291

== ENCOUNTER 2022-07-02 03:00 | Inpatient (IN) | payer MEDICARE ==
[2022-07-02] MEDS ORDERED: ONDANSETRON 4 MG/2 ML VIAL IVP STA (03:46)
[2022-07-02] MEDS ORDERED: PANTOPRAZOLE 40 MG/10 ML VIAL IVP STA (03:46)
[2022-07-02] MEDS ORDERED: SODIUM CHLORIDE 0.9% 1,000 ML IV STA (03:46)
[2022-07-02] MEDS ORDERED: KETOROLAC 15 MG/ML 1 ML VIAL IVP STA (03:47)
[2022-07-02 04:19] LABS: Partial Thromboplastin Time 22.1 sec (22.0-30.0); Prothrombin Time 10.1 sec (9.0-12.0)
[2022-07-02 04:23] LABS: Albumin 4.2 g/dL (3.5-5.0); Basophils % (A) 0 %; Calcium 9.2 mg/dL (8.4-10.2); Eosinophils # (A) 0.1 k/uL (0-0.7); Eosinophils % (A) 1 %; HCT 39.3 % (34.0-46.0); HGB 12.6 gm/dL (11.4-16.0); Lymphocytes # (A) 0.9 k/uL (1.0-4.8); Lymphocytes % (A) 8 %; MCH 31.1 pg (25.0-35.0); MCHC 32.1 g/dL (31.0-37.0); MCV 96.8 fL (80.0-100.0); Mean Platelet Volume 9.7; Monocytes # (A) 0.4 k/uL (0-1.0); Monocytes % (A) 4 %; Neutrophils # (A) 9.2 k/uL (1.3-7.7); Neutrophils % (A) 87 %; Platelet Count 247 k/uL (150-450); RBC 4.06 m/uL (3.80-5.40); RDW 15.5 % (11.5-15.5); Total Bilirubin 1.1 mg/dL (0.2-1.3); Total Protein 6.8 g/dL (6.3-8.2); WBC 10.6 k/uL (3.8-10.6)
--- NOTE | 2022-07-02 05:03 | ED ---
General Adult HPI - General Chief complaint: Abdominal Pain Stated complaint: ABD PAIN Time Seen by Provider: 07/02/22 03:36 Source: patient, family, RN notes reviewed, old records reviewed Mode of arrival: wheelchair - History of Present Illness Initial comments: Patient is an 81-year-old female who presents with Department complaining of abdominal pain, nausea, vomiting. Symptoms started last night around 11 PM. Waited to come to the emergency department to later in the evening. Has been having some epigastric abdominal discomfort with belching. Endorses nausea and no episodes of bilious emesis but does have some nonbloody emesis. Denies diarrhea that is abnormal for her. Denies any blood in her stool. Last bowel movement was yesterday. Denies any chest pain or shortness of breath. No other acute complaints at this time. Presents for further evaluation at this time. - Related Data Home Medications Medication Instructions Recorded Confirmed Levothyroxine Sodium [Synthroid] 75 mcg PO DAILY 10/13/17 11/13/21 Verapamil HCl [Verapamil ER] 120 mg PO W/BRKFST 10/13/17 11/13/21 Citalopram Hydrobromide [CeleXA] 40 mg PO W/BRKFST 08/25/20 11/13/21 allopurinoL [Zyloprim] 100 mg PO DAILY@1200 08/25/20 11/13/21 Ferrous Sulfate [Iron] 325 mg PO DAILY@119911/13/21 11/13/21 Pantoprazole Sodium [Protonix] 40 mg PO BID-W/MEALS 11/13/21 11/13/21 Previous Rx's Medication Instructions Recorded ALPRAZolam [Xanax] 0.5 mg PO HS #3 tab 11/19/21 Acetaminophen Tab [Tylenol] 650 mg PO Q6HR PRN tab 11/19/21 Cefdinir [Omnicef] 300 mg PO Q12HR #2 capsule 11/19/21 Furosemide [Lasix] 40 mg PO DAILY #30 tab 11/19/21 Tamsulosin [Flomax] 0.4 mg PO PC-BRKFST cap 11/19/21 amLODIPine [Norvasc] 5 mg PO DAILY #30 tab 11/19/21 metroNIDAZOLE [Flagyl] 500 mg PO TID #3 tab 11/19/21 Baclofen 5 mg PO QID PRN #20 tablet 03/27/22 Allergies Allergy/AdvReac Type Severity Reaction Status Date / Time No Known Allergies Allergy Verified 07/02/22 03:10 Review of Systems ROS Statement: Those systems with pertinent positive or pertinent negative responses have been documented in the HPI. Review of Systems: CONST: Denies fever EYES: Denies blurry vision ENT: Denies nasal congestion C/V: Denies Chest pain RESP: Denies shortness of breath GI: Endorses abdominal pain : Denies dysuria SKIN: Denies rash. MSK: Denies joint pain. NEURO: Denies headache ROS Other: All systems not noted in ROS Statement are negative. Past Medical History Past Medical History: GERD/Reflux, GI Bleed, Hypertension, Osteoarthritis (OA), Renal Disease, Syncope, Thyroid Disorder, Vascular Disorder Additional Past Medical History / Comment(s): CKD stage III, IBS, past constipation but diarrhea past few months, duodenal and antral ulcer/acute anemia with transfusion, chronic anemia, hiatal hernia, varicosities, L side sciatica, arthritis in neck and L hip, hypothyroid, sinus problems. History of Any Multi-Drug Resistant Organisms: None Reported Past Surgical History: Appendectomy, Cholecystectomy, Hysterectomy Additional Past Surgical History / Comment(s): D&C, EGD, colonoscopy, yovana cataracts Past Anesthesia/Blood Transfusion Reactions: No Reported Reaction Additional Past Anesthesia/Blood Transfusion Reaction / Comment(s): Pt has received blood in past without reaction. Past Psychological History: Anxiety, Depression Smoking Status: Never smoker Past Alcohol Use History: None Reported Past Drug Use History: None Reported - Past Family History Father Family Medical History: Cancer Additional Family Medical History / Comment(s): Father at the age of 57yrs from cancer which pt thinks was esophageal. Mother Family Medical History: Hypertension Additional Family Medical History / Comment(s): Mother lived to be 97yrs old. General Exam - General Exam Comments Initial Comments: General: Appears in mild distress secondary to abdominal discomfort. HEAD: Normal with no signs of head trauma. EYES: PERRLA, EOMI, conjunctiva normal, no discharge. ENT: Hearing grossly intact, normal oropharynx. RESPIRATORY: Clear breath sounds bilaterally. No wheezes, rales, or rhonchi. C/V: Regular rate and rhythm. S1 and S2 auscultated, no edema, peripheral pulses 2+ and intact throughout ABD: Abdomen soft, mildly distended in the epigastric region with some ten derness to palpation there and periumbilically. No guarding. No peritoneal signs. No rebound tenderness. EXT: Normal range of motion, no obvious deformity SKIN: No rashes or lesions observed on exposed skin. NEURO: Alert and oriented 4. Course Vital Signs 07/02/22 07/02/22 07/02/22 03:04 04:45 06:40 Temperature 97.5 F L Pulse Rate 85 79 82 Respiratory 19 18 18 Rate Blood Pressure 93/64 112/78 133/74 O2 Sat by Pulse 99 96 97 Oximetry 07/02/22 06:50 Temperature Pulse Rate 73 Respiratory 16 Rate Blood Pressure 135/88 O2 Sat by Pulse 100 Oximetry Medical Decision Making - Medical Decision Making Was pt. sent in by a medical professional or institution (, PA, ANIMAL COP, urgent care, hospital, or halfway...) When possible be specific @ -No Did you speak to anyone other than the patient for history (EMS, parent, family, police, friend...)? What history was obtained from this source @ -No Did you review nursing and triage notes (agree or disagree)? Why? @ -I reviewed and agree with nursing and triage notes Were old charts reviewed (outside hosp., previous admission, EMS record, old EKG, old radiological studies, urgent care reports/EKG's, halfway records)? Report findings @ -Old charts reviewed from October 2021 Differential Diagnosis (chest pain, altered mental status, abdominal pain women, abdominal pain men, vaginal bleeding, weakness, fever, dyspnea, syncope, headache, dizziness, GI bleed, back pain, seizure, CVA, palpatations, mental health, musculoskeletal)? @ -Differential Abdominal Pain Women: Appendicitis, Cholecystitis, diverticulosis, ischemic bowel, pancreatitis, hepatitis, UTI, gastroenteritis, AAA, incarcerated hernia, bowel obstruction, constipation, inflammatory bowel, hepatitis, peptic ulcer disease, splenic infarction, perforated viscus, vulvitis, ovarian torsion, PID, kidney stone, placenta abruption, this is not meant to be an all-inclusive list EKG interpreted by me (3pts min.). @ -As above X-rays interpreted by me (1pt min.). @ -Chest x-ray reveals no obvious acute cardio pulmonary process. CT interpreted by me (1pt min.). @ -Patient's CT imaging revealed no specific findings. There are fluid-filled prominent bowel loops within the pelvis recommend correlation for ileus which is less likely as the patient is having active bowel movement still. Radiology believes less likely to be a low-grade small bowel obstruction... Patient does have ascites as well as liver cirrhosis. Old pubic symphysis fracture. U/S interpreted by me (1pt. min.). @ -None done What testing was considered but not performed or refused? (CT, X-rays, U/S, labs)? Why? @ -None What meds were considered but not given or refused? Why? @ -None Did you discuss the management of the patient with other professionals (professionals i.e. , PA, ANIMAL COP, lab, RT, psych nurse, social media assistant, analytics intern, teacher, parcel post officer, residential case manager)? Give summary @ -Discussed the case with the admitting team Dr. Stock who accepted the patient. Was smoking cessation discussed for >3mins.? @ -No Was critical care preformed (if so, how long)? @ -No Were there social determinants of health that impacted care today? How? (Homelessness, low income, unemployed, alcoholism, drug addiction, transportation, low edu. Level, literacy, decrease access to med. care, shelter, rehab)? @ -No Was there de-escalation of care discussed even if they declined (Discuss DNR or withdrawal of care, Hospice)? DNR status @ -No What co-morbidities impacted this encounter? (DM, HTN, Smoking, COPD, CAD, Cancer, CVA, ARF, Chemo, Hep., AIDS, mental health diagnosis, sleep apnea, morbid obesity)? @ -None Was patient admitted / discharged? Hospital course, mention meds given and route, prescriptions, significant lab abnormalities, going to OR and other pertinent info. @ -Based on the patient's presentation and physical exam, she presents compl aining of abdominal pain. We will obtain abdominal labs as well as atypical ACS labs. She will require CT imaging of the abdomen and pelvis. She was in agreement this plan. Vital signs within acceptable limits. Will be symptomatically treated with a single dose of Toradol as well as IV Zofran and Protonix and IV fluids. She was in agreement this plan. EKG showed no signs of acute ischemia.Patient's laboratory studies returned remarkable for chronic CK D. patient's creatinine appears to be near her baseline. Potassium is 5.1. Remainder the patient's labs are within acceptable limits. Patient is redosed analgesic medications. Was a long delay in obtaining imaging results. Secondary to stat read. CT imaging shows no obvious acute findings. Findings concerning for possible ileus which clinically does not fit the current picture versus possible small bowel obstruction but also does not clinically fit the picture at this time. I did discuss results with the admitting physician Dr. Stock. He did accept the patient. Patient will be admitted for intractable abdominal pain. Surgery consulted. Undiagnosed new problem with uncertain prognosis? @ -No Drug Therapy requiring intensive monitoring for toxicity (Heparin, Nitro, Insulin, Cardizem)? @ -No Were any procedures done? @ -No Diagnosis/symptom? @ -Intractable abdominal pain, nausea Acute, or Chronic, or Acute on Chronic? @ -Acute Uncomplicated (without systemic symptoms) or Complicated (systemic symptoms)? @ -Complicated Side effects of treatment? @ -none Exacerbation, Progression, or Severe Exacerbation] @ -no Poses a threat to life or bodily function? @ -no - Lab Data Result diagrams: 07/02/22 03:55 07/02/22 06:00 Lab Results 07/02/22 07/02/22 07/02/22 Range/Units 03:55 03:55 03:55 WBC 10.6 (3.8-10.6) k/uL RBC 4.06 (3.80-5.40) m/uL Hgb 12.6 (11.4-16.0) gm/dL Hct 39.3 (34.0-46.0) % MCV 96.8 (80.0-100.0) fL MCH 31.1 (25.0-35.0) pg MCHC 32.1 (31.0-37.0) g/dL RDW 15.5 (11.5-15.5) % Plt Count 247 (150-450) k/uL MPV 9.7 Neutrophils % 87 % Lymphocytes % 8 % Monocytes % 4 % Eosinophils % 1 % Basophils % 0 % Neutrophils # 9.2 H (1.3-7.7) k/uL Lymphocytes # 0.9 L (1.0-4.8) k/uL Monocytes # 0.4 (0-1.0) k/uL Eosinophils # 0.1 (0-0.7) k/uL Basophils # 0.0 (0-0.2) k/uL PT 10.1 (9.0-12.0) sec INR 1.0 (<1.2) APTT 22.1 (22.0-30.0) sec Sodium 134 L (137-145) mmol/L Potassium 5.9 H (3.5-5.1) mmol/L Chloride 106 (98-107) mmol/L Carbon Dioxide 15 L (22-30) mmol/L Anion Gap 13 mmol/L BUN 64 H (7-17) mg/dL Creatinine 2.07 H (0.52-1.04) mg/dL Est GFR (CKD-EPI)AfAm 25 (>60 ml/min/1.73 sqM) Est GFR (CKD-EPI)NonAf 22 (>60 ml/min/1.73 sqM) Glucose 222 H (74-99) mg/dL Plasma Lactic Acid Carlos (0.7-2.0) mmol/L Calcium 9.2 (8.4-10.2) mg/dL Total Bilirubin 1.1 (0.2-1.3) mg/dL AST 48 H (14-36) U/L ALT 39 H (4-34) U/L Alkaline Phosphatase 89 (38-126) U/L Troponin I (0.000-0.034) ng/mL Total Protein 6.8 (6.3-8.2) g/dL Albumin 4.2 (3.5-5.0) g/dL Amylase 92 (30-110) U/L Lipase 154 (23-300) U/L Urine Color Urine Appearance (Clear) Urine pH (5.0-8.0) Ur Specific [place] (1.001-1.035) Urine Protein (Negative) Urine Glucose (UA) (Negative) Urine Ketones (Negative) Urine Blood (Negative) Urine Nitrite (Negative) Urine Bilirubin (Negative) Urine Urobilinogen (<2.0) mg/dL Ur Leukocyte Esterase (Negative) Urine RBC (0-5) /hpf Urine WBC (0-5) /hpf Urine Bacteria (None) /hpf Hyaline Casts (0-2) /lpf Granular Casts (0) /lpf Urine Mucus (None) /hpf 07/02/22 07/02/22 07/02/22 Range/Units 03:55 03:55 05:55 WBC (3.8-10.6) k/uL RBC (3.80-5.40) m/uL Hgb (11.4-16.0) gm/dL Hct (34.0-46.0) % MCV (80.0-100.0) fL MCH (25.0-35.0) pg MCHC (31.0-37.0) g/dL RDW (11.5-15.5) % Plt Count (150-450) k/uL MPV Neutrophils % % Lymphocytes % % Monocytes % % Eosinophils % % Basophils % % Neutrophils # (1.3-7.7) k/uL Lymphocytes # (1.0-4.8) k/uL Monocytes # (0-1.0) k/uL Eosinophils # (0-0.7) k/uL Basophils # (0-0.2) k/uL PT (9.0-12.0) sec INR (<1.2) APTT (22.0-30.0) sec Sodium (137-145) mmol/L Potassium (3.5-5.1) mmol/L Chloride (98-107) mmol/L Carbon Dioxide (22-30) mmol/L Anion Gap mmol/L BUN (7-17) mg/dL Creatinine (0.52-1.04) mg/dL Est GFR (CKD-EPI)AfAm (>60 ml/min/1.73 sqM) Est GFR (CKD-EPI)NonAf (>60 ml/min/1.73 sqM) Glucose (74-99) mg/dL Plasma Lactic Acid Carlos 1.6 (0.7-2.0) mmol/L Calcium (8.4-10.2) mg/dL Total Bilirubin (0.2-1.3) mg/dL AST (14-36) U/L ALT (4-34) U/L Alkaline Phosphatase (38-126) U/L Troponin I 0.012 (0.000-0.034) ng/mL Total Protein (6.3-8.2) g/dL Albumin (3.5-5.0) g/dL Amylase (30-110) U/L Lipase (23-300) U/L Urine Color Yellow Urine Appearance Clear (Clear) Urine pH 5.5 (5.0-8.0) Ur Specific [place] 1.022 (1.001-1.035) Urine Protein 1+ H (Negative) Urine Glucose (UA) Negative (Negative) Urine Ketones Negative (Negative) Urine Blood Negative (Negative) Urine Nitrite Negative (Negative) Urine Bilirubin Negative (Negative) Urine Urobilinogen <2.0 (<2.0) mg/dL Ur Leukocyte Esterase Negative (Negative) Urine RBC <1 (0-5) /hpf Urine WBC 1 (0-5) /hpf Urine Bacteria Rare H (None) /hpf Hyaline Casts 7 H (0-2) /lpf Granular Casts 4 (0) /lpf Urine Mucus Rare H (None) /hpf 07/02/22 Range/Units 06:00 WBC (3.8-10.6) k/uL RBC (3.80-5.40) m/uL Hgb (11.4-16.0) gm/dL Hct (34.0-46.0) % MCV (80.0-100.0) fL MCH (25.0-35.0) pg MCHC (31.0-37.0) g/dL RDW (11.5-15.5) % Plt Count (150-450) k/uL MPV Neutrophils % % Lymphocytes % % Monocytes % % Eosinophils % % Basophils % % Neutrophils # (1.3-7.7) k/uL Lymphocytes # (1.0-4.8) k/uL Monocytes # (0-1.0) k/uL Eosinophils # (0-0.7) k/uL Basophils # (0-0.2) k/uL PT (9.0-12.0) sec INR (<1.2) APTT (22.0-30.0) sec Sodium (137-145) mmol/L Potassium 5.1 (3.5-5.1) mmol/L Chloride (98-107) mmol/L Carbon Dioxide (22-30) mmol/L Anion Gap mmol/L BUN (7-17) mg/dL Creatinine (0.52-1.04) mg/dL Est GFR (CKD-EPI)AfAm (>60 ml/min/1.73 sqM) Est GFR (CKD-EPI)NonAf (>60 ml/min/1.73 sqM) Glucose (74-99) mg/dL Plasma Lactic Acid Carlos (0.7-2.0) mmol/L Calcium (8.4-10.2) mg/dL Total Bilirubin (0.2-1.3) mg/dL AST (14-36) U/L ALT (4-34) U/L Alkaline Phosphatase (38-126) U/L Troponin I (0.000-0.034) ng/mL Total Protein (6.3-8.2) g/dL Albumin (3.5-5.0) g/dL Amylase (30-110) U/L Lipase (23-300) U/L Urine Color Urine Appearance (Clear) Urine pH (5.0-8.0) Ur Specific [place] (1.001-1.035) Urine Protein (Negative) Urine Glucose (UA) (Negative) Urine Ketones (Negative) Urine Blood (Negative) Urine Nitrite (Negative) Urine Bilirubin (Negative) Urine Urobilinogen (<2.0) mg/dL Ur Leukocyte Esterase (Negative) Urine RBC (0-5) /hpf Urine WBC (0-5) /hpf Urine Bacteria (None) /hpf Hyaline Casts (0-2) /lpf Granular Casts (0) /lpf Urine Mucus (None) /hpf - EKG Data -: EKG Interpreted by Me EKG Comments: 12-lead Electrocardiogram Interpretation Note EKG was reviewed and interpreted by myself. 12-lead ECG performed at 0346 is interpreted by me as revealing normal sinus rhythm at a rate of 82 beats per minute. [place] is normal. UT interval is 190 ms, QRS duration is 112 ms, QTc is 448 ms.. Appears a partial right bundle branch block which is chronic. There were no ST or T wave abnormalities to suggest myocardial ischemia or injury. R wave progression across the precordium was satisfactory. By my interpretation this EKG is non-diagnostic for acute ischemia. Compared with EKG from October 2021, no significant change. Disposition Clinical Impression: Intractable abdominal pain, Nausea Disposition: ADMITTED IP TO THIS [facility] Condition: Stable Referrals: Kayden Trammell MD [Primary Care Provider] - 1-2 days Time of Disposition: 07:55
[2022-07-02 05:20] LABS: Potassium 5.9 mmol/L (3.5-5.1)
[2022-07-02] MEDS ORDERED: MORPHINE SULFATE 2 MG/ML SYRINGE IVP STA (05:36)
[2022-07-02] MEDS ORDERED: METOCLOPRAMIDE 5 MG/ML 2 ML VIAL IVP STA (05:36)
[2022-07-02 06:04] LABS: Appearance,Urine Clear (Clear); Bacteria,Urine Rare /hpf; Bilirubin,Urine Negative (Negative); Blood,Urine Negative (Negative); Color,Urine Yellow; Glucose,Urine (UA) Negative (Negative); Granular Casts,Urine 4 /lpf (0); Hyaline Casts,Urine 7 /lpf (0-2); Ketones,Urine Negative (Negative); Leukocyte Esterase,Urine Negative (Negative); Mucus,Urine Rare /hpf; Nitrite,Urine Negative (Negative); PH, Urine 5.5 (5.0-8.0); Protein,Urine 1+ (Negative); RBC,Urine <1 /hpf (0-5); Specific Gravity,Urine 1.022 (1.001-1.035); Urobilinogen,Urine <2.0 mg/dL (<2.0); WBC,Urine 1 /hpf (0-5)
[2022-07-02] MEDS ORDERED: MORPHINE SULFATE 4 MG/ML SYRINGE IVP STA (06:40)
--- NOTE | 2022-07-02 07:59 | CT ---
EXAMINATION TYPE: CT abdomen pelvis wo con DATE OF EXAM: 07/02/2022 COMPARISON: 11/16/2021 INDICATION: Abdomen pain DLP: 396.6 mGycm, Automated exposure control for dose reduction was used. CONTRAST: 0 mL of Isovue 300. Study performed without Oral Contrast TECHNIQUE: Axial images were obtained from above the diaphragm to the pubic rami in the axial plane a t 5 mm thick sections. Reconstructed images are reviewed on the computer in the coronal plane. FINDINGS: Limited CT sections are obtained the lung bases. The lung bases are clear. CT ABDOMEN: Liver: Liver appears somewhat lobulated and small. Small amount of fluid is adjacent. Spleen: Normal. Ascites is adjacent. Pancreas: Normal Adrenal glands: The adrenal glands are normal. Gallbladder: Surgically absent Kidneys: Kidneys are small. No masses are evident.. No hydronephrosis is present. No cysts are pres ent. No renal stones identified. Aorta: Vascular calcification is within the aorta. Inferior vena cava: Normal. CT PELVIS: Fluid-filled small bowel loops are within the pelvis. These appear somewhat prominent. Correlate for ileus. No zone of transition is identified. Colon appears normal. No rectal wall thickening and this exam Appendix: Not identified. No dilated tubular structure inflammatory change evident. Urinary bladder: Decompressed limiting evaluation. Genitourinary structures: Uterus and ovaries are not identified. Osseous structures: Old fracture of the left pubic symphysis appears to be present. Correlate with hi story. This is an interval finding from 11/16/2021. Scoliosis in the lumbar spine. IMPRESSIONS: 1. Fluid-filled prominent small bowel loops within the pelvis. Correlate for ileus. Low-grade small bowel obstruction is considered less likely. No stone transition is identified. 2. ascites. 3. Small lobular liver. Correlate for cirrhosis. 4. 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
[2022-07-02] MEDS ORDERED: NALOXONE 0.4 MG/ML 1 ML VIAL IV PRN (08:33)
--- NOTE | 2022-07-02 08:51 | XR ---
EXAMINATION TYPE: XR chest 1V portable DATE OF EXAM: 07/02/2022 COMPARISON: 11/16/2021 INDICATION: Abdomen pain TECHNIQUE: Single frontal view of the chest is obtained. FINDINGS: The heart size is normal. The pulmonary vasculature is normal. The lungs are clear. IMPRESSION: 1. No acute pulmonary process.
[2022-07-02] MEDS: SODIUM CHLORIDE 0.9% 1,000 ML IV SCH (11:08)
[2022-07-02] MEDS: HEPARIN SODIUM,PORCINE/PF 5,000 UNIT/0.5 ML SYRINGE SQ SCH ×2 (11:10→20:37)
[2022-07-02] MEDS ORDERED: DOCUSATE 100 MG CAP PO PRN (12:06)
--- NOTE | 2022-07-02 12:10 | P.HPIM ---
History of Present Illness H&P Date: 07/02/22 Patient is a 81-year-old female with history of IBS, hypothyroidism, depression, gout, anxiety presenting with acute abdominal pain. She claims that her pain started last night, acute, severe 10/10, periumbilical, sharp in nature. He was also associated with nausea and vomiting. She is unable to keep anything down. She has history of IBS, and occasionally has diarrhea and constipation. She denies any chest pain, shortness of breath, acute urinary complaints. She denies any fevers or chills. In the ED, temperature 97.5, pulse 85, respiratory rate 19, blood pressure 93/64 , saturating at 99% on room air. WBC 10.6, sodium 134, potassium 5.1, bicarb 15, creatinine 2.07, glucose 222, AST 48, ALT 39, troponin 0.012. 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 EKG showed normal sinus rhythm, right bundle branch block. Chest x-ray showed no acute process. Patient admitted for abdominal pain, nausea vomiting, possible ileus. Surgery consulted. Pertinent positives and negatives as discussed in HPI, a complete review of systems was performed and all other systems are negative. Patient seen and examined at bedside. Vital signs reviewed General: nontoxic, no distress, appears at stated age Derm: warm, dry Head: atraumatic, normocephalic, symmetric Eyes: EOMI, no lid lag, anicteric sclera, pupils equal round reactive to light ENT: Nose and ears atraumatic Neck: No thyromegaly, supple Mouth: no lip lesion, mucus membranes moist Cardiovascular: S1S2 reg, no murmur, no edema Lungs: clear to auscultation bilateral, no rhonchi, no rales, no wheeze, no accessory muscle use Abdominal: soft, tender to palpation in the periumbilical region, no guarding, no appreciable organomegaly Ext: no gross muscle atrophy, muscle strength muscle strength 5 out of 5 in all 4 extremities, no contractures Neuro: CN II-XII grossly intact Psych: Alert, oriented, appropriate affect Assessment/Plan: Active: Acute abdominal pain Possible ileus, possible low grade small bowel obstruction History of IBS Transaminitis Ascites Possible cirrhosis Right bundle branch block -CT findings concerning for ileus, possible low grade small bowel obstruction -Surgery consulted -Pain control with IV morphine as needed -Zofran as needed for nausea and vomiting -Continue normal saline IV 75 mL an hour, encourage oral intake -Due to acute nature of abdominal pain, less likely to be peritonitis -Does need further evaluation as outpatient for possible cirrhosis -EKG independently interpreted, shows sinus rhythm with right bundle branch block Chronic: Hypothyroidism Depression Gout Anxiety Chronic kidney disease The patient is admitted with an anticipated less than 2 midnight stay as observation status for evaluation of abdominal pain. Surrogate decision-maker: son CODE STATUS: Full code DVT prophylaxis: Subcu heparin Anticipated discharge date: Pending clinical course Anticipated discharge place: Pending clinical course A total of 55 minutes was spent on the care of this complex patient more than 50% of the time was spent in counseling and care coordination. Past Medical History Past Medical History: GERD/Reflux, GI Bleed, Hypertension, Osteoarthritis (OA), Renal Disease, Syncope, Thyroid Disorder, Vascular Disorder Additional Past Medical History / Comment(s): CKD stage III, IBS, past constipation but diarrhea past few months, duodenal and antral ulcer/acute anemia with transfusion, chronic anemia, hiatal hernia, varicosities, L side sciatica, arthritis in neck and L hip, hypothyroid, sinus problems. History of Any Multi-Drug Resistant Organisms: None Reported Past Surgical History: Appendectomy, Cholecystectomy, Hysterectomy Additional Past Surgical History / Comment(s): D&C, EGD, colonoscopy, yovana cat aracts Past Anesthesia/Blood Transfusion Reactions: No Reported Reaction Additional Past Anesthesia/Blood Transfusion Reaction / Comment(s): Pt has re ceived blood in past without reaction. Past Psychological History: Anxiety, Depression Smoking Status: Never smoker Past Alcohol Use History: None Reported Past Drug Use History: None Reported - Past Family History Father Family Medical History: Cancer Additional Family Medical History / Comment(s): Father at the age of 57yrs from cancer which pt thinks was esophageal. Mother Family Medical History: Hypertension Additional Family Medical History / Comment(s): Mother lived to be 97yrs old. Medications and Allergies Home Medications Medication Instructions Recorded Confirmed Type Levothyroxine Sodium [Synthroid] 75 mcg PO DAILY 10/13/17 07/02/22 History Citalopram Hydrobromide [CeleXA] 40 mg PO DAILY 08/25/20 07/02/22 History allopurinoL [Zyloprim] 100 mg PO DAILY 08/25/20 07/02/22 History Pantoprazole Sodium [Protonix] 40 mg PO HS 11/13/21 07/02/22 History ALPRAZolam [Xanax] 0.5 mg PO HS 07/02/22 07/02/22 History Cholecalciferol [Vitamin D3 (10 10 mcg PO DAILY 07/02/22 07/02/22 History Mcg = 400 Iu)] Cyanocobalamin [Vitamin B-12] 500 mcg PO DAILY 07/02/22 07/02/22 History Docusate [Colace] 100 mg PO DAILY PRN 07/02/22 07/02/22 History Ferrous Gluconate 240 mg PO DAILY 07/02/22 07/02/22 History Furosemide [Lasix] 20 mg PO DAILY PRN 07/02/22 07/02/22 History Tamsulosin [Flomax] 0.4 mg PO DAILY 07/02/22 07/02/22 History Allergies Allergy/AdvReac Type Severity Reaction Status Date / Time No Known Allergies Allergy Verified 07/02/22 11:26 Physical Exam Vitals: Vital Signs Temp Pulse Resp BP Pulse Ox 07/02/22 11:11 67 16 121/75 97 07/02/22 06:50 73 16 135/88 100 07/02/22 06:40 82 18 133/74 97 07/02/22 04:45 79 18 112/78 96 07/02/22 03:04 97.5 F L 85 19 93/64 99 Intake and Output 07/01/22 07/02/22 07/02/22 22:59 06:59 14:59 Other: Weight 52.163 kg Results CBC & Chem 7: 07/02/22 03:55 07/02/22 06:00 Labs: Abnormal Lab Results - Last 24 Hours (Table) 07/02/22 07/02/22 07/02/22 Range/Units 03:55 03:55 05:55 Neutrophils # 9.2 H (1.3-7.7) k/uL Lymphocytes # 0.9 L (1.0-4.8) k/uL Sodium 134 L (137-145) mmol/L Potassium 5.9 H (3.5-5.1) mmol/L Carbon Dioxide 15 L (22-30) mmol/L BUN 64 H (7-17) mg/dL Creatinine 2.07 H (0.52-1.04) mg/dL Glucose 222 H (74-99) mg/dL AST 48 H (14-36) U/L ALT 39 H (4-34) U/L Urine Protein 1+ H (Negative) Urine Bacteria Rare H (None) /hpf Hyaline Casts 7 H (0-2) /lpf Urine Mucus Rare H (None) /hpf
--- NOTE | 2022-07-02 12:27 | P.GSCN ---
History of Present Illness Consult date: 07/02/22 Reason for Consult: Abdominal pain History of present illness: Patient is a 81-year-old female who went to the emergency room because of a sudd en onset of abdominal pain. It started about 11 PM. She's never had anything like this in the past. She didn't have fevers or chills. There was some nausea and vomiting. She feels better now than when she initially went to the ER. She tolerated clear liquids and would like more to eat. Patient hasn't been ill. Hasn't been around anyone that's been ill. Review of Systems All systems: negative Past Medical History Past Medical History: GERD/Reflux, GI Bleed, Hypertension, Osteoarthritis (OA), Renal Disease, Syncope, Thyroid Disorder, Vascular Disorder Additional Past Medical History / Comment(s): CKD stage III, IBS, past constipation but diarrhea past few months, duodenal and antral ulcer/acute anemia with transfusion, chronic anemia, hiatal hernia, varicosities, L side sciatica, arthritis in neck and L hip, hypothyroid, sinus problems. History of Any Multi-Drug Resistant Organisms: None Reported Past Surgical History: Appendectomy, Cholecystectomy, Hysterectomy Additional Past Surgical History / Comment(s): D&C, EGD, colonoscopy, yovana cataracts Past Anesthesia/Blood Transfusion Reactions: No Reported Reaction Additional Past Anesthesia/Blood Transfusion Reaction / Comm: Pt has received blood in past without reaction. Past Psychological History: Anxiety, Depression Smoking Status: Never smoker Past Alcohol Use History: None Reported Past Drug Use History: None Reported - Past Family History Father Family Medical History: Cancer Additional Family Medical History / Comment(s): Father at the age of 57yrs from cancer which pt thinks was esophageal. Mother Family Medical History: Hypertension Additional Family Medical History / Comment(s): Mother lived to be 97yrs old. Medications and Allergies Home Medications Medication Instructions Recorded Confirmed Type Levothyroxine Sodium [Synthroid] 75 mcg PO DAILY 10/13/17 07/02/22 History Citalopram Hydrobromide [CeleXA] 40 mg PO DAILY 08/25/20 07/02/22 History allopurinoL [Zyloprim] 100 mg PO DAILY 08/25/20 07/02/22 History Pantoprazole Sodium [Protonix] 40 mg PO HS 11/13/21 07/02/22 History ALPRAZolam [Xanax] 0.5 mg PO HS 07/02/22 07/02/22 History Cholecalciferol [Vitamin D3 (10 10 mcg PO DAILY 07/02/22 07/02/22 History Mcg = 400 Iu)] Cyanocobalamin [Vitamin B-12] 500 mcg PO DAILY 07/02/22 07/02/22 History Docusate [Colace] 100 mg PO DAILY PRN 07/02/22 07/02/22 History Ferrous Gluconate 240 mg PO DAILY 07/02/22 07/02/22 History Furosemide [Lasix] 20 mg PO DAILY PRN 07/02/22 07/02/22 History Tamsulosin [Flomax] 0.4 mg PO DAILY 07/02/22 07/02/22 History Allergies Allergy/AdvReac Type Severity Reaction Status Date / Time No Known Allergies Allergy Verified 07/02/22 11:26 Surgical - Exam Osteopathic Statement: *. No significant issues noted on an osteopathic structural exam other than those noted in the History and Physical/Consult. Vital Signs Temp Pulse Resp BP Pulse Ox 97.5 F L 85 19 93/64 99 07/02/22 03:04 07/02/22 03:04 07/02/22 03:04 07/02/22 03:04 07/02/22 03:04 - General well developed, well nourished, no distress - Eyes normal ocular movement - Neck trachea midline - Respiratory normal respiratory effort, clear to auscultation - Cardiovascular Rhythm: regular - Abdomen Abdomen: soft, non tender, bowel sounds (Hypoactive), no guarding, no rigid, no rebound, no distended Results - Labs 07/02/22 03:55 07/02/22 06:00 Abnormal Lab Results - Last 24 Hours (Table) 07/02/22 07/02/22 07/02/22 Range/Units 03:55 03:55 05:55 Neutrophils # 9.2 H (1.3-7.7) k/uL Lymphocytes # 0.9 L (1.0-4.8) k/uL Sodium 134 L (137-145) mmol/L Potassium 5.9 H (3.5-5.1) mmol/L Carbon Dioxide 15 L (22-30) mmol/L BUN 64 H (7-17) mg/dL Creatinine 2.07 H (0.52-1.04) mg/dL Glucose 222 H (74-99) mg/dL AST 48 H (14-36) U/L ALT 39 H (4-34) U/L Urine Protein 1+ H (Negative) Urine Bacteria Rare H (None) /hpf Hyaline Casts 7 H (0-2) /lpf Urine Mucus Rare H (None) /hpf Diabetes panel 07/02/22 07/02/22 Range/Units 03:55 06:00 Sodium 134 L (137-145) mmol/L Potassium 5.9 H 5.1 (3.5-5.1) mmol/L Chloride 106 (98-107) mmol/L Carbon Dioxide 15 L (22-30) mmol/L BUN 64 H (7-17) mg/dL Creatinine 2.07 H (0.52-1.04) mg/dL Glucose 222 H (74-99) mg/dL Calcium 9.2 (8.4-10.2) mg/dL AST 48 H (14-36) U/L ALT 39 H (4-34) U/L Alkaline Phosphatase 89 (38-126) U/L Total Protein 6.8 (6.3-8.2) g/dL Albumin 4.2 (3.5-5.0) g/dL Calcium panel 07/02/22 Range/Units 03:55 Calcium 9.2 (8.4-10.2) mg/dL Albumin 4.2 (3.5-5.0) g/dL Pituitary panel 07/02/22 07/02/22 Range/Units 03:55 06:00 Sodium 134 L (137-145) mmol/L Potassium 5.9 H 5.1 (3.5-5.1) mmol/L Chloride 106 (98-107) mmol/L Carbon Dioxide 15 L (22-30) mmol/L BUN 64 H (7-17) mg/dL Creatinine 2.07 H (0.52-1.04) mg/dL Glucose 222 H (74-99) mg/dL Calcium 9.2 (8.4-10.2) mg/dL Adrenal panel 07/02/22 07/02/22 Range/Units 03:55 06:00 Sodium 134 L (137-145) mmol/L Potassium 5.9 H 5.1 (3.5-5.1) mmol/L Chloride 106 (98-107) mmol/L Carbon Dioxide 15 L (22-30) mmol/L BUN 64 H (7-17) mg/dL Creatinine 2.07 H (0.52-1.04) mg/dL Glucose 222 H (74-99) mg/dL Calcium 9.2 (8.4-10.2) mg/dL Total Bilirubin 1.1 (0.2-1.3) mg/dL AST 48 H (14-36) U/L ALT 39 H (4-34) U/L Alkaline Phosphatase 89 (38-126) U/L Total Protein 6.8 (6.3-8.2) g/dL Albumin 4.2 (3.5-5.0) g/dL - Imaging CT scan - abdomen: report reviewed Assessment and Plan (1) Abdominal pain Current Visit: Yes Status: Acute Code(s): R10.9 - UNSPECIFIED ABDOMINAL PAIN SNOMED Code(s): 54867142 (2) Ileus Current Visit: Yes Status: Acute Code(s): K56.7 - ILEUS, UNSPECIFIED SNOMED Code(s): 070966620 Plan: Patient is feeling better. No acute surgical problem was seen on the CT other than a mild ileus. White count is normal. She is status post cholecystectomy. No evidence of acute appendicitis. She is currently nonsurgical. Advance diet as tolerated. I will see her if her pain returns.
[2022-07-02 14:50] LABS: Glucose,Whole Blood 259 mg/dL (70-110)
[2022-07-02] MEDS: ALPRAZolam 0.5 MG TAB PO SCH (20:37)
[2022-07-02] MEDS ORDERED: PANTOPRAZOLE 40 MG TABLET PO SCH (21:00)
[2022-07-02] MEDS: ONDANSETRON 4 MG/2 ML VIAL IVP PRN (21:55)
[2022-07-03] MEDS: MORPHINE SULFATE 4 MG/ML SYRINGE IV PRN ×3 (00:14→09:40)
[2022-07-03] MEDS: SODIUM CHLORIDE 0.9% 1,000 ML IV SCH ×2 (04:05→12:37)
[2022-07-03] MEDS: ONDANSETRON 4 MG/2 ML VIAL IVP PRN (05:18)
[2022-07-03] MEDS: LEVOTHYROXINE 75 MCG TAB PO SCH (05:59)
[2022-07-03 06:38] LABS: HCT 35.1 % (34.0-46.0); HGB 10.8 gm/dL (11.4-16.0); Hypochromasia Slight; MCH 30.9 pg (25.0-35.0); MCHC 30.8 g/dL (31.0-37.0); MCV 100.3 fL (80.0-100.0); Macrocytosis Slight; Platelet Count 207 k/uL (150-450); RDW 15.6 % (11.5-15.5); WBC 16.1 k/uL (3.8-10.6)
[2022-07-03 06:53] LABS: Calcium 7.8 mg/dL (8.4-10.2)
[2022-07-03 07:02] LABS: Potassium 6.9 mmol/L (3.5-5.1)
[2022-07-03 07:12] LABS: Band Neutrophils % 14 %; Lymphocytes # (M) 2.74 k/uL (1.0-4.8); Monocytes # (M) 0.48 k/uL (0-1.0); Neutrophils % (M) 67 %; Nucleated Red Blood Cells 0 /100 WBC (0-0); Total Cells Counted 200
[2022-07-03 07:13] LABS: Anisocytosis (M) Present
[2022-07-03 07:15] LABS: Large Platelets Present; Poikilocytosis (M) Present
[2022-07-03] MEDS ORDERED: SODIUM BICARB 8.4% 50 ML SYR (1 MEQ/ML) IV STA ×2 (09:43→19:30)
[2022-07-03] MEDS ORDERED: CALCIUM GLUCONATE IN NACL 1 GM in SALINE 1 100ML.BAG IVPB ONE (09:43)
[2022-07-03] MEDS ORDERED: LACTATED RINGERS 1,000 ML IV SCH (09:45)
[2022-07-03] MEDS ORDERED: SODIUM CHLORIDE 0.9% 500 ML 500 ML IV ONE (09:58)
--- NOTE | 2022-07-03 10:16 | XR ---
EXAMINATION TYPE: XR abdomen 1V DATE OF EXAM: 07/03/2022 COMPARISON: None HISTORY: Pain TECHNIQUE: Abdomen is examined in the supine and upright views FINDINGS: No free air is identified. Organomegaly was not evident. Cholecystectomy clips are present . Nonspecific bowel gas is present. Small bowel loops are somewhat prominent. Significant colonic bow el gas is not evident. No mass effect is evident. No suspicious air-fluid levels are evident. If ther e is concern for small bowel obstruction, close follow-up is recommended. IMPRESSION: 1. Nonspecific abdomen. Mildly prominent air-filled small bowel loops are present. Consider ileus. F ollow-up can be performed.
[2022-07-03] MEDS ORDERED: LIDOCAINE VISCOUS 2000 MG/100 ML BOTTLE MUCOUS MEM ONE (10:41)
[2022-07-03] MEDS: CHOLECALCIFEROL 10 MCG (400 IU) TABLET PO SCH (10:42)
[2022-07-03] MEDS: CITALOPRAM HYDROBROMIDE 20 MG TAB PO SCH (10:42)
[2022-07-03] MEDS: allopurinoL 100 MG TAB PO SCH (10:42)
[2022-07-03] MEDS: FERROUS SULFATE 325 MG TAB PO SCH (10:42)
[2022-07-03] MEDS: CYANOCOBALAMIN 500 MCG TAB PO SCH (10:42)
[2022-07-03] MEDS: TAMSULOSIN 0.4 MG CAP.ER.24H PO SCH (10:43)
--- NOTE | 2022-07-03 11:19 | P.PN ---
Subjective Progress Note Date: 07/03/22 The patient is seen on rounds. She was feeling worse this morning and had abdominal pain along with a large emesis. Just prior to my arrival she had received some pain medication. She says she feels better. The patient is sleepy but in no acute distress. Nursing reports that lab was unable to obtain a specimen for lactic acid. Patient also currently has no peripheral IV access. Objective - Vital Signs Vital signs: Vital Signs Temp 98 F 07/03/22 07:00 Pulse 112 H 07/03/22 07:00 Resp 98 H 07/03/22 07:00 BP 90/59 07/03/22 07:00 Pulse Ox 98 07/03/22 02:00 FiO2 Intake & Output 07/02/22 07/03/22 07/03/22 18:59 06:59 18:59 Intake Total 950 10 Output Total 61 60 Balance 889 -50 Intake: IV 10 Invasive Line 1 10 Intake, IV Titration 900 Amount Sodium Chloride 0.9% 1, 900 000 ml @ 75 mls/hr IV . [id number] [facility] Rx#:[id number] Oral 50 Output: Urine 1 Emesis 60 60 - Constitutional General appearance: Present: cooperative, no acute distress - Respiratory Respiratory: bilateral: CTA - Cardiovascular Rhythm: regular - Gastrointestinal General gastrointestinal: Present: decreased bowel sounds, distended (Softly distended), tenderness (Mild centralized tenderness without guarding or rebound) - Labs CBC & Chem 7: 07/03/22 05:18 07/03/22 06:25 Labs: Abnormal Lab Results - Last 24 Hours (Table) 07/02/22 07/03/22 07/03/22 Range/Units 14:48 05:18 06:25 WBC 16.1 H (3.8-10.6) k/uL RBC 3.50 L (3.80-5.40) m/uL Hgb 10.8 L (11.4-16.0) gm/dL MCV 100.3 H (80.0-100.0) fL MCHC 30.8 L (31.0-37.0) g/dL RDW 15.6 H (11.5-15.5) % Neutrophils # (Manual) 13.00 H (1.3-7.7) k/uL Sodium 136 L (137-145) mmol/L Potassium 6.9 H* (3.5-5.1) mmol/L Chloride 110 H (98-107) mmol/L Carbon Dioxide 12 L (22-30) mmol/L BUN 81 H (7-17) mg/dL Creatinine 3.75 H (0.52-1.04) mg/dL Glucose 207 H (74-99) mg/dL POC Glucose (mg/dL) 259 H (70-110) mg/dL Calcium 7.8 L (8.4-10.2) mg/dL - Imaging and Cardiology Abdominal x-ray: report reviewed, image reviewed (Dilated loops of small bowel along with marked gaseous distention of the stomach) Assessment and Plan (1) Abdominal pain Current Visit: Yes Status: Acute Code(s): R10.9 - UNSPECIFIED ABDOMINAL PAIN SNOMED Code(s): 12244733 (2) Ileus Current Visit: Yes Status: Acute Code(s): K56.7 - ILEUS, UNSPECIFIED SNOMED Code(s): 526838341 Plan: When I saw the patient yesterday afternoon she felt better so was started on a diet. She's having vomiting today and her lab appears worse. There is marked gaseous distention of the stomach along with ileus. An NG tube will be placed. We'll attempt to get a peripheral IV, possibly have a midline placed. Needs a fluid bolus, that will be given as soon as an IV is accessed. Nurse will call me with lactic acid results. She'll be reevaluated with further recommendations to follow.
[2022-07-03] MEDS: HEPARIN SODIUM,PORCINE/PF 5,000 UNIT/0.5 ML SYRINGE SQ SCH (11:59)
[2022-07-03] MEDS: PIPERACILLIN-TAZOBACTAM 3.375 GM in SODIUM CHLORIDE 0.9% 100 ML IVPB SCH (12:00)
[2022-07-03 14:49] LABS: VBG PH 7.1 (7.31-7.41)
[2022-07-03] MEDS ORDERED: DEXTROSE 5% IN WATER 1,000 ML with SODIUM BICARB (1 MEQ/ML) 150 ML IV SCH (15:15)
[2022-07-03] MEDS ORDERED: CALCIUM GLUCONATE IN NACL 2 GM in SALINE 1 100ML.BAG IVPB ONE (15:16)
--- NOTE | 2022-07-03 15:27 | P.PN ---
Subjective Progress Note Date: 07/03/22 Hospital Course: 81-year-old female with history of IBS, hypothyroidism, depression, gout, anxiety presenting with acute abdominal pain. In the ED, temperature 97.5, pulse 85, respiratory rate 19, blood pressure 93/64, saturating at 99% on room air. WBC 10.6, sodium 134, potassium 5.1, bicarb 15, creatinine 2.07, glucose 222, AST 48, ALT 39, troponin 0.012. 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 EKG showed normal sinus rhythm, right bundle branch block. Chest x- ray showed no acute process. Patient admitted for abdominal pain, nausea vomiting, possible ileus. Surgery consulted. Yesterday in the ER, patient had a syncopal episode. Today however, patient clearly has signs of severe sepsis, lactate is trending up, severe leukocytosis with bandemia. Likely sources abdomen. On broad-spectrum antibiotics, also has worsening acute kidney injury. For acidosis, started on IV sodium bicarbonate. Subjective: Patient seen and examined at bedside. No complaining of severe abdominal pain. Still has some nausea. He pulled to tolerate a little amounts of food. Denies any urinary complaints. Per nursing, patient not making much urine. Pertinent positives and negatives as discussed above, a complete review of systems was performed and all other systems are negative. Vitals Signs Reviewed. General: nontoxic, no distress, appears at stated age Derm: warm, dry Head: atraumatic, normocephalic, symmetric Eyes: EOMI, no lid lag, anicteric sclera, pupils equal round reactive to light ENT: Nose and ears atraumatic Neck: No thyromegaly, supple Mouth: no lip lesion, mucus membranes moist Cardiovascular: S1S2 reg, no murmur, no edema Lungs: clear to auscultation bilateral, no rhonchi, no rales, no wheeze, no accessory muscle use Abdominal: soft, tender to palpation in the periumbilical region, no guarding, no appreciable organomegaly Ext: no gross muscle atrophy, muscle strength muscle strength 5 out of 5 in all 4 extremities, no contractures Neuro: CN II-XII grossly intact Psych: Alert, oriented, appropriate affect Data Reviewed Today: Pertinent Labs: WBC 16.1, hemoglobin 10.8, sodium 136, potassium 6.9, creatinine 3.75, pH 7.1 Imaging: Abdominal x-ray independently reviewed, no free air under the diaphragm Assessment and Plan: Severe sepsis, likely abdominal source Nausea and vomiting Possible ileus, possible low grade small bowel obstruction Acute kidney injury on chronic kidney disease Lactic acidosis High anion gap metabolic acidosis Hyperkalemia Transaminitis Ascites Possible cirrhosis Right bundle branch block -Surgery note reviewed, NG tube placed -Patient started on IV Zosyn -Blood cultures pending -Currently blood pressure within normal limits -Given 1 L of LR this morning, now started on sodium bicarb IV -Nephrology consulted -Patient is critically ill, may need medical ICU DVT ppx: Subcu heparin Code status: Full code Anticipated discharge place: Pending clinical course Anticipated discharge time: Pending clinical course Objective - Vital Signs Vital signs: Vital Signs Temp 97.5 F L 07/03/22 12:00 Pulse 84 07/03/22 12:00 Resp 16 07/03/22 12:00 BP 122/74 07/03/22 12:00 Pulse Ox 99 07/03/22 12:00 FiO2 Intake & Output 07/02/22 07/03/22 07/03/22 18:59 06:59 18:59 Intake Total 950 2150 Output Total 61 960 Balance 889 1190 Intake: Intake, IV Titration 900 2150 Amount Calcium Gluconate in NaCl 100 1 gm In Saline 1 100ml. bag @ 400 mls/hr IVPB ONCE ONE Rx#:[id number] Lactated Ringers 1,000 ml 1000 @ 999 mls/hr IV .Q1H1M [facility] Rx#:[id number] Piperacillin-Tazobactam 3 100 .375 gm In Sodium Chloride 0.9% 100 ml @ 25 mls/hr IVPB Q12HR [facility] Rx #:[id number] Sodium Chloride 0.9% 1, 900 450 000 ml @ 75 mls/hr IV . [id number] [facility] Rx#:[id number] Sodium Chloride 0.9% 500 500 ml 500 ml @ 999 mls/hr IV .Q31M ONE Rx#:[id number] Oral 50 0 Output: Gastric Drainage 800 Urine 1 0 Emesis 60 160 - Labs CBC & Chem 7: 07/03/22 05:18 07/03/22 14:38 Labs: Abnormal Lab Results - Last 24 Hours (Table) 07/03/22 07/03/22 07/03/22 Range/Units 05:18 06:25 14:38 WBC 16.1 H (3.8-10.6) k/uL RBC 3.50 L (3.80-5.40) m/uL Hgb 10.8 L (11.4-16.0) gm/dL MCV 100.3 H (80.0-100.0) fL MCHC 30.8 L (31.0-37.0) g/dL RDW 15.6 H (11.5-15.5) % Neutrophils # (Manual) 13.00 H (1.3-7.7) k/uL VBG pH (7.31-7.41) VBG HCO3 (24-28) mmol/L Sodium 136 L (137-145) mmol/L Potassium 6.9 H* 6.7 H* (3.5-5.1) mmol/L Chloride 110 H (98-107) mmol/L Carbon Dioxide 12 L (22-30) mmol/L BUN 81 H (7-17) mg/dL Creatinine 3.75 H (0.52-1.04) mg/dL Glucose 207 H (74-99) mg/dL Plasma Lactic Acid Carlos (0.7-2.0) mmol/L Calcium 7.8 L (8.4-10.2) mg/dL 07/03/22 07/03/22 Range/Units 14:38 14:39 WBC (3.8-10.6) k/uL RBC (3.80-5.40) m/uL Hgb (11.4-16.0) gm/dL MCV (80.0-100.0) fL MCHC (31.0-37.0) g/dL RDW (11.5-15.5) % Neutrophils # (Manual) (1.3-7.7) k/uL VBG pH 7.10 L* (7.31-7.41) VBG HCO3 12 L (24-28) mmol/L Sodium (137-145) mmol/L Potassium (3.5-5.1) mmol/L Chloride (98-107) mmol/L Carbon Dioxide (22-30) mmol/L BUN (7-17) mg/dL Creatinine (0.52-1.04) mg/dL Glucose (74-99) mg/dL Plasma Lactic Acid Carlos 6.6 H* (0.7-2.0) mmol/L Calcium (8.4-10.2) mg/dL
--- NOTE | 2022-07-03 16:34 | P.PN ---
Progress Note - Text Progress Note Date: 07/03/22 The patient was reevaluated. Nursing was able to place 2 peripheral IVs. An NG tube was inserted with aspiration of about a liter of ileus fluid. The patient's abdomen is slightly distended and still has some nonspecific tenderness. Lactic acid is elevated. I discussed the findings with patient and her family at bedside. I recommended exploratory laparotomy with possible bowel resection. Due to the sepsis she may need to be in the ICU afterwards. She may need in the ventilator. The procedure risks and complications were discussed. Questions were encouraged and answered. Son asked the mother if she understood and she indicated understanding.
[2022-07-03] MEDS ORDERED: HEPARIN SODIUM,PORCINE 5,000 UNIT/ML 1 ML VIAL SQ ONE (17:24)
[2022-07-03] MEDS ORDERED: ONDANSETRON 4 MG/2 ML VIAL IVP ONE (17:35)
[2022-07-03] MEDS ORDERED: DEXAMETHASONE SOD PHOSPHATE 4 MG/ML 1 ML VIAL IVP ONE (17:35)
[2022-07-03] MEDS ORDERED: SODIUM CHLORIDE 0.9% 100 ML with ceFAZolin 1,000 MG IV ONE ×2 (17:37)
[2022-07-03] MEDS ORDERED: INSULIN REGULAR 100 UNIT/ML VIAL (IV) IV ONE (17:37)
[2022-07-03] MEDS ORDERED: IV FLUID CONTINUATION 1,000 ML IV ONE (17:37)
[2022-07-03] MEDS ORDERED: ALBUTEROL NEBULIZED (CONC) 5 MG, SODIUM CHLORIDE 0.9% NEBULIZ 3 ML INHALATION STA ×2 (17:38)
[2022-07-03] MEDS ORDERED: DEXTROSE 50% SYRINGE 50 ML IVP STA ×2 (17:38→19:34)
[2022-07-03] MEDS ORDERED: fentaNYL (PF) 50 MCG/ML 2 ML AMP ONE (17:39)
[2022-07-03] MEDS ORDERED: ETOMIDATE 2 MG/ML 10 ML VIAL ONE (17:39)
[2022-07-03] MEDS ORDERED: MIDAZOLAM 2 MG/2 ML VIAL ONE (17:39)
[2022-07-03] MEDS ORDERED: ROCURONIUM 10 MG/ML (5 ML VIAL) IV ONE (17:39)
[2022-07-03] MEDS ORDERED: SODIUM CHLORIDE 0.9% 1,000 ML IV ONE ×3 (17:43→19:33)
--- NOTE | 2022-07-03 17:44 | XR ---
EXAMINATION TYPE: XR abdomen 1V DATE OF EXAM: 07/03/2022 COMPARISON: 07/03/2012 INDICATION: Nasogastric tube placement TECHNIQUE: Single view abdomen upright view FINDINGS: Nasogastric tube tip is in the left upper quadrant of the abdomen. There are prominent air-filled sma ll bowel loops within the midabdomen. Small amount of colonic bowel gas may be within the hepatic fle xure region. up No mass effect is evident. IMPRESSION: 1. Suspected ileus. Continued follow-up is recommended
[2022-07-03] MEDS ORDERED: SODIUM CHLORIDE 0.9% 1,000 ML IV SCH (17:45)
--- NOTE | 2022-07-03 17:47 | P.NPCON ---
History of Present Illness - Reason for Consult Consult date: 07/03/22 acute renal failure, hyperkalemia - Chief Complaint Abdominal pain - History of Present Illness 81-year-old white female coming to the hospital with the above complaints. Computed tomography scan showed small bowel obstruction, currently has an NG tube which is draining. She sees Dr. Gonzalez in the office, history of chronic kidney disease stage IV with a baseline creatinine about 2.0 MG per DL. On admission serum creatinine 2.75 MG per DL with a potassium of 6.9. No urine output. History of decreased oral intake with nausea vomiting. No NSAID use or recent contrast studies. Medically treated for hyperkalemia. Not on potassium replacements or alpesh inhibitors or Aldactone at home. She got 2 L of IV fluid boluses. Review of Systems Constitutional: Reports as per HPI Past Medical History Past Medical History: GERD/Reflux, GI Bleed, Hypertension, Osteoarthritis (OA), Renal Disease, Syncope, Thyroid Disorder, Vascular Disorder Additional Past Medical History / Comment(s): CKD stage III, IBS, past constipation but diarrhea past few months, duodenal and antral ulcer/acute anemi a with transfusion, chronic anemia, hiatal hernia, varicosities, (L) side sciatica, arthritis in neck and L hip, hypothyroid, sinus problems. History of Any Multi-Drug Resistant Organisms: None Reported Past Surgical History: Appendectomy, Cholecystectomy, Hysterectomy Additional Past Surgical History / Comment(s): D&C, EGD, colonoscopy, yovana cataracts Past Anesthesia/Blood Transfusion Reactions: No Reported Reaction Additional Past Anesthesia/Blood Transfusion Reaction / Comment(s): Pt has received blood in past without reaction. Smoking Status: Never smoker - Past Family History Father Family Medical History: Cancer Additional Family Medical History / Comment(s): Father at the age of 57yrs from cancer which pt thinks was esophageal. Mother Family Medical History: Hypertension Additional Family Medical History / Comment(s): Mother lived to be 97yrs old. Medications and Allergies Home Medications Medication Instructions Recorded Confirmed Type Levothyroxine Sodium [Synthroid] 75 mcg PO DAILY 10/13/17 07/02/22 History Citalopram Hydrobromide [CeleXA] 40 mg PO DAILY 08/25/20 07/02/22 History allopurinoL [Zyloprim] 100 mg PO DAILY 08/25/20 07/02/22 History Pantoprazole Sodium [Protonix] 40 mg PO HS 11/13/21 07/02/22 History ALPRAZolam [Xanax] 0.5 mg PO HS 07/02/22 07/02/22 History Cholecalciferol [Vitamin D3 (10 10 mcg PO DAILY 07/02/22 07/02/22 History Mcg = 400 Iu)] Cyanocobalamin [Vitamin B-12] 500 mcg PO DAILY 07/02/22 07/02/22 History Docusate [Colace] 100 mg PO DAILY PRN 07/02/22 07/02/22 History Ferrous Gluconate 240 mg PO DAILY 07/02/22 07/02/22 History Furosemide [Lasix] 20 mg PO DAILY PRN 07/02/22 07/02/22 History Tamsulosin [Flomax] 0.4 mg PO DAILY 07/02/22 07/02/22 History Allergies Allergy/AdvReac Type Severity Reaction Status Date / Time No Known Allergies Allergy Verified 07/02/22 11:26 Physical Exam Vitals: Vital Signs Temp Pulse Pulse Resp BP BP Pulse Ox 07/03/22 15:00 97.5 F L 70 14 68/46 98 07/03/22 12:00 97.5 F L 84 16 122/74 99 07/03/22 07:00 98 F 112 H 98 H 90/59 99 07/03/22 02:00 98.0 F 97 16 117/62 98 07/02/22 20:00 98.5 F 97 16 125/63 98 07/02/22 19:03 98.0 F 96 16 115/52 07/02/22 19:00 90 24 114/60 07/02/22 18:50 92 22 112/56 07/02/22 18:40 90 23 118/59 07/02/22 18:30 92 24 116/55 07/02/22 18:20 96 14 107/58 07/02/22 18:10 110 H 5 L 116/62 07/02/22 18:00 93 20 115/61 86 L 07/02/22 17:50 95 14 123/68 07/02/22 17:40 92 24 111/62 97 Intake and Output 07/03/22 07/03/22 07/03/22 06:59 14:59 22:59 Intake Total 225 2150 Output Total 60 960 Balance 165 1190 Intake: Intake, IV Titration 225 2150 Amount Calcium Gluconate in NaCl 100 1 gm In Saline 1 100ml. bag @ 400 mls/hr IVPB ONCE ONE Rx#:[id number] Lactated Ringers 1,000 ml 1000 @ 999 mls/hr IV .Q1H1M [facility] Rx#:[id number] Piperacillin-Tazobactam 3 100 .375 gm In Sodium Chloride 0.9% 100 ml @ 25 mls/hr IVPB Q12HR [facility] Rx #:[id number] Sodium Chloride 0.9% 1, 225 450 000 ml @ 75 mls/hr IV . [id number] [facility] Rx#:[id number] Sodium Chloride 0.9% 500 500 ml 500 ml @ 999 mls/hr IV .Q31M [facility] Rx#:[id number] Oral 0 Output: Gastric Drainage 800 Urine 0 Emesis 60 160 No acute distress NG tube S1-S2 heard Decreased breath sounds Abdomen distended No edema Results - Lab Results Most recent lab results Calcium 7.8 mg/dL (8.4-10.2) L 07/03/22 06:25 07/03/22 05:18 07/03/22 14:38 Assessment and Plan Assessment: #1 acute kidney injury suspect hemodynamic ATN with low blood pressures -Baseline creatinine 2.0 MG per DL. -Urinalysis 1+ protein and hyaline cast. #2 chronic kidney disease stage IV suspect nephrosclerosis. #3 hyperkalemia secondary to acute kidney injury -Rule out urinary retention #4 metabolic acidosis #5 small bowel obstruction Plan: #1 status post 2 L of IV fluid boluses. Give 1 more liter as she is still hypotensive and continue bicarb at 100 ML's an hour. #2 she still she does not respond and the family wants everything than transferred to ICU for pressor support. #3 the current management for hyperkalemia #4 discussed with the family if continues to remain high needs dialysis #5 prognosis guarded
[2022-07-03] MEDS ORDERED: LACTATED RINGERS 1,000 ML IV ONE (18:15)
--- NOTE | 2022-07-03 18:55 | P.OP ---
Date of Procedure: 07/03/22 Preoperative Diagnosis: Small bowel obstruction with sepsis Postoperative Diagnosis: Small bowel obstruction with ischemic bowel Procedure(s) Performed: Exploratory laparotomy with segmental small bowel resection Anesthesia: KERRY Surgeon: Amira Winn Estimated Blood Loss (ml): 50 Pathology: other Condition: critical Disposition: ICU Indications for Procedure: Patient presented with abdominal pain. Initial CT was suggestive of a partial bowel obstruction. She was monitored overnight and became worse. She is therefore given some fluid boluses and NG tube decompression. Description of Procedure: Patient's taken the operative suite where she is prepped and draped in the usual sterile manner under a general endotracheal anesthetic the abdomen was entered through a midline incision. There are some blood-tinged fluid in the abdomen. The small bowel was brought up through the incision and she is noted to have a very tight band of adhesion which resulted in ischemic bowel. The band was lysed. The bowel just proximal and distal to the band were viable. Opening was made in the mesentery and a PHILIP stapler was placed and fired. The mesentery of the affected small bowel was taken down with the LigaSure device. Larger vessels clamped, cut and tied with 0 Vicryl suture. The small bowel was then run. There was a section more proximal that was about 5 mm in length where it appeared that there was starting to be some gangrenous changes. This segment was resected. There were some slightly dusky areas on other portions of the small bowel without efrain gangrene. Decision was made to close the patient and bring her back for a second look operation. The abdomen was then irrigated and aspirated. The fascia was loosely approximated using 1 PDS. A wound VAC was placed. She tolerated the procedure. Required pressors for blood pressure support. Will be taken to the ICU on the ventilator. She does well hemodynamically, will do a second look operation on her on Monday.
[2022-07-03 19:13] LABS: ABG Base Excess -21.4 mmol/L; ABG Oxygen Saturation 99.9 % (94-97); ABG PCO2 43 mmHg (35-45); ABG PO2 >400 mmHg (83-108); ABG TCO2 12 mmol/L (19-24)
[2022-07-03 19:14] LABS: ABG PH 6.98 (7.35-7.45)
[2022-07-03 19:15] LABS: ABG HCO3 10 mmol/L (21-25); Allen Test Performed? no
[2022-07-03 19:22] LABS: Glucose,Whole Blood 66 mg/dL (70-110)
--- NOTE | 2022-07-03 19:35 | XR ---
EXAMINATION TYPE: XR chest 1V portable DATE OF EXAM: 07/03/2022 HISTORY: Shortness of breath. COMPARISON: 07/02/2022 TECHNIQUE: Single view of the chest is submitted. FINDINGS: Demonstrated are scattered senescent parenchymal change. Endotracheal tube is 2.4 cm from the amanda. NG tube is seen coursing into the stomach. There is no evidence for focal infiltrate. The heart is stable. Pulmonary venous congestion without overt failure. Hilar and mediastinal structures are within normal limits. Degenerative changes are seen of the dorsal spine. IMPRESSION: 1. Pulmonary venous congestion without overt failure.
[2022-07-03 19:40] LABS: Glucose,Whole Blood 195 mg/dL (70-110)
[2022-07-03 19:41] LABS: Anisocytosis Slight; HCT 22.6 % (34.0-46.0); Hypochromasia Marked; MCH 31.5 pg (25.0-35.0); MCHC 29.8 g/dL (31.0-37.0); Macrocytosis Moderate; Platelet Count 159 k/uL (150-450); RBC 2.14 m/uL (3.80-5.40); RDW 16.1 % (11.5-15.5); WBC 8.7 k/uL (3.8-10.6)
[2022-07-03 19:48] LABS: Albumin 1.9 g/dL (3.5-5.0); Total Bilirubin 0.5 mg/dL (0.2-1.3); Total Protein 3.6 g/dL (6.3-8.2)
[2022-07-03] MEDS: DEXTROSE 5% IN WATER 1,000 ML with SODIUM BICARB (1 MEQ/ML) 150 ML IV SCH (20:00)
[2022-07-03 20:18] LABS: HGB 6.7 gm/dL (11.4-16.0); MCV 105.6 fL (80.0-100.0)
[2022-07-03 20:21] LABS: Hypochromasia Moderate; MCV 103.1 fL (80.0-100.0); Macrocytosis Moderate; Platelet Count 113 k/uL (150-450); RBC 1.78 m/uL (3.80-5.40); WBC 4.8 k/uL (3.8-10.6)
[2022-07-03 20:22] LABS: HCT 18.4 % (34.0-46.0); HGB 5.5 gm/dL (11.4-16.0)
[2022-07-03 20:39] LABS: ABG Base Excess -13.2 mmol/L; ABG HCO3 16 mmol/L (21-25); ABG Oxygen Saturation 99.8 % (94-97); ABG PCO2 50 mmHg (35-45); ABG PO2 262 mmHg (83-108); ABG TCO2 18 mmol/L (19-24); Allen Test Performed? Yes
[2022-07-03 20:41] LABS: ABG PH 7.12 (7.35-7.45)
[2022-07-03 20:53] LABS: Calcium 6.4 mg/dL (8.4-10.2); Potassium 6.7 mmol/L (3.5-5.1)
[2022-07-03 21:06] LABS: Anisocytosis (M) Present; Band Neutrophils % 51 %; Lymphocytes # (M) 1.48 k/uL (1.0-4.8); Metamyelocytes # (M) 0.09 k/uL (0); Metamyelocytes % 1 %; Monocytes # (M) 1.13 k/uL (0-1.0); Myelocytes # (M) 0.09 k/uL (0); Myelocytes % 1 %; Neutrophils % (M) 17 %; Nucleated Red Blood Cells 0 /100 WBC (0-0); Ovalocytes Present; Poikilocytosis (M) Present; Polychromasia Present; Total Cells Counted 200
[2022-07-03] MEDS: ALPRAZolam 0.5 MG TAB PO SCH (21:10)
[2022-07-03] MEDS: NOREPINEPHRINE 32 MG in SODIUM CHLORIDE 0.9% 218 ML IV SCH (22:13)
[2022-07-03 22:25] LABS: ABG Base Excess -12.8 mmol/L; ABG HCO3 15 mmol/L (21-25); ABG PCO2 34 mmHg (35-45); ABG PH 7.24 (7.35-7.45); ABG PO2 134 mmHg (83-108); ABG TCO2 16 mmol/L (19-24); Allen Test Performed? Yes
[2022-07-03] MEDS: CHLORHEXIDINE GLUCONATE 15 ML CUP MUCOUS MEM SCH (23:21)
[2022-07-03 23:45] LABS: Glucose,Whole Blood 96 mg/dL (70-110)
[2022-07-04] MEDS: IPRATROPIUM-ALBUTEROL 3 ML NEB INHALATION SCH ×6 (00:19→20:11)
[2022-07-04] MEDS: PIPERACILLIN-TAZOBACTAM 3.375 GM in SODIUM CHLORIDE 0.9% 100 ML IVPB SCH ×2 (00:22→11:05)
[2022-07-04] MEDS: HEPARIN SODIUM,PORCINE/PF 5,000 UNIT/0.5 ML SYRINGE SQ SCH ×2 (00:22→11:05)
--- NOTE | 2022-07-04 01:13 | P.CNPUL ---
History of Present Illness Consult date: 07/04/22 Requesting physician: Johnathan Stock Reason for consult: other (ICU management) Chief complaint: Abdominal pain History of present illness: I'm seeing this patient in new consultation today 07/04/2022 for ICU management post exploratory laparotomy and segmental small bowel resection for a small bowel obstruction. Patient is a 81-year-old white female with past medical history significant for irritable bowel syndrome, peptic ulcers with previous anemia and PRBC transfusions, GERD, hiatal hernia, chronic kidney disease stage IV, hypothyroidism, hypertension. Patient presented to the emergency room on July 02 with a chief complaint of abdominal pain, nausea, and vomiting for approximately one day. Patient reportedly had a bowel movement the day prior. A follow-up CT of the abdomen and pelvis without contrast showed fluid-filled prominent small bowel loops within the pelvis that could correlate for ileus. A low-grade small bowel obstruction was felt to be less likely at that time. There was also some ascites, and a small lobular liver. NG tube was originally inserted for gastric decompression, and the patient was observed overnight. The patient's condition progressively worsened, and was taken to surgery yesterday. Patient underwent an exploratory laparotomy with segmental small bowel resection. The abdomen was left open, and a wound VAC was applied. Postoperatively, the patient was left on the mechanical ventilator, and is currently in the intensive care unit. She is synchronous with the ventilator. Initial ventilator settings were assist control, respiratory rate 14, tidal volume 350, FiO2 100%, and a PEEP of 5. Initial chest x-ray showed the endotracheal tube 2.4 cm from the amanda, NG tube was seen within the stomach, and there was some pulmonary vascular congestion without overt heart failure. Initial ABG on these settings showed a pO2 of 262, pCO2 of 50, pH of 7.12. Respiratory rate was increased to 26, tidal volume was increased to 400, and Fi O2 reduced to 40%. A follow-up ABG showed a pO2 of 134, pCO2 of 34, and pH is 7.24. Propofol infusing at 15 mics per kilogram per minute for sedation. Patient was given 3 A of sodium bicarb and started on a sodium bicarb infusion 3 amps in D5W at 125 ML's per hour. There was an acute drop in hemoglobin from 10.8 g/dL preoperatively to 5.5 g/dL postoperatively. Patient is currently receiving 2 u nits PRBC transfusion. Patient was also fluid resuscitated with a total of 4 L normal saline. Patient's hypotension was refractory to fluid resuscitation, and was subsequently started on a norepinephrine infusion which is currently infusing at 0.12 mics per kilogram per minute through a right IJ double-lumen central line catheter. NG tube has a small amount of brown-green bilious drainage. Most recent CBC shows a WBC count of 4.8, hemoglobin 5.5, hematocrit 18.4, platelets 113,000. Most recent BMP postoperatively shows a sodium of 137, potassium 6.7, chloride 115, serum CO2 10, BUN 76, creatinine 4.14, glucose 96. Patient's hyperkalemia was treated with 8 units of insulin, an amp of D50W, 2 g of calcium gluconate, as well as the as the above-mentioned sodium bicarbonate. Patient has a component of acute on chronic kidney injury, and is currently anuric. Patient's lactic was also 6.6, and this will be rechecked. LFTs are mildly elevated. Patient was started on empiric Zosyn. The plan per surgical services, is to take the patient back to the operating room on Monday, once mor e hemodynamically stable. Review of Systems Unable to obtain a review of systems due to the patient being intubated mechanical ventilator Past Medical History Past Medical History: GERD/Reflux, GI Bleed, Hypertension, Osteoarthritis (OA), Renal Disease, Syncope, Thyroid Disorder, Vascular Disorder Additional Past Medical History / Comment(s): CKD stage III, IBS, past constipation but diarrhea past few months, duodenal and antral ulcer/acute anemia with transfusion, chronic anemia, hiatal hernia, varicosities, (L) side sciatica, arthritis in neck and L hip, hypothyroid, sinus problems. History of Any Multi-Drug Resistant Organisms: None Reported Past Surgical History: Appendectomy, Cholecystectomy, Hysterectomy Additional Past Surgical History / Comment(s): D&C, EGD, colonoscopy, yovana cataracts Past Anesthesia/Blood Transfusion Reactions: No Reported Reaction Additional Past Anesthesia/Blood Transfusion Reaction / Comment(s): Pt has received blood in past without reaction. Smoking Status: Never smoker - Past Family History Father Family Medical History: Cancer Additional Family Medical History / Comment(s): Father at the age of 57yrs from cancer which pt thinks was esophageal. Mother Family Medical History: Hypertension Additional Family Medical History / Comment(s): Mother lived to be 97yrs old. Medications and Allergies Home Medications Medication Instructions Recorded Confirmed Type Levothyroxine Sodium [Synthroid] 75 mcg PO DAILY 10/13/17 07/02/22 History Citalopram Hydrobromide [CeleXA] 40 mg PO DAILY 08/25/20 07/02/22 History allopurinoL [Zyloprim] 100 mg PO DAILY 08/25/20 07/02/22 History Pantoprazole Sodium [Protonix] 40 mg PO HS 11/13/21 07/02/22 History ALPRAZolam [Xanax] 0.5 mg PO HS 07/02/22 07/02/22 History Cholecalciferol [Vitamin D3 (10 10 mcg PO DAILY 07/02/22 07/02/22 History Mcg = 400 Iu)] Cyanocobalamin [Vitamin B-12] 500 mcg PO DAILY 07/02/22 07/02/22 History Docusate [Colace] 100 mg PO DAILY PRN 07/02/22 07/02/22 History Ferrous Gluconate 240 mg PO DAILY 07/02/22 07/02/22 History Furosemide [Lasix] 20 mg PO DAILY PRN 07/02/22 07/02/22 History Tamsulosin [Flomax] 0.4 mg PO DAILY 07/02/22 07/02/22 History Allergies Allergy/AdvReac Type Severity Reaction Status Date / Time No Known Allergies Allergy Verified 07/02/22 11:26 Physical Exam Vitals: Vital Signs Temp Pulse Pulse Resp BP BP Pulse Ox 07/04/22 00:00 07/03/22 23:17 97.3 F L 112 H 26 H 117/48 100 07/03/22 23:15 97.3 F L 111 H 26 H 96 07/03/22 23:00 109 H 26 H 100 07/03/22 22:57 97.5 F L 111 H 26 H 120/49 07/03/22 22:47 97.4 F L 112 H 26 H 79/37 07/03/22 22:45 112 H 26 H 95 07/03/22 22:30 112 H 26 H 96 07/03/22 22:17 07/03/22 22:15 108 H 26 H 88 L 07/03/22 22:00 109 H 26 H 07/03/22 21:45 111 H 27 H 07/03/22 21:30 111 H 26 H 07/03/22 21:15 111 H 18 100 07/03/22 21:00 108 H 17 100 07/03/22 20:45 108 H 16 99 07/03/22 20:41 07/03/22 20:30 108 H 17 96 07/03/22 20:15 108 H 17 100 07/03/22 20:03 94 F L 110 H 14 97 07/03/22 20:00 07/03/22 19:41 07/03/22 19:07 07/03/22 17:30 97.6 F 103 H 14 87/50 90 L 07/03/22 15:00 97.5 F L 70 14 68/46 98 07/03/22 12:00 97.5 F L 84 16 122/74 99 07/03/22 07:00 98 F 112 H 98 H 90/59 99 07/03/22 02:00 98.0 F 97 16 117/62 98 FiO2 07/04/22 00:00 40 07/03/22 23:17 07/03/22 23:15 07/03/22 23:00 07/03/22 22:57 07/03/22 22:47 07/03/22 22:45 07/03/22 22:30 07/03/22 22:17 40 07/03/22 22:15 07/03/22 22:00 07/03/22 21:45 07/03/22 21:30 07/03/22 21:15 40 07/03/22 21:00 07/03/22 20:45 07/03/22 20:41 40 07/03/22 20:30 60 07/03/22 20:15 07/03/22 20:03 60 07/03/22 20:00 100 07/03/22 19:41 60 07/03/22 19:07 100 07/03/22 17:30 07/03/22 15:00 07/03/22 12:00 07/03/22 07:00 07/03/22 02:00 Intake and Output 07/03/22 07/03/22 07/04/22 14:59 22:59 06:59 Intake Total 2150 3327.244 17.539 Output Total 960 35 0 Balance 1190 3292.244 17.539 Intake: IV 3325 Calcium Gluconate in NaCl 100 2 gm In Saline 1 100ml. bag @ 100 mls/hr IVPB ONCE [facility] Rx#:[id number] Dextrose 5% in Water 1, 125 000 ml @ 125 mls/hr IV . Q9H12M [facility] with Sodium Bicarb (1 Meq/ml) 150 ml Rx#:[id number] Sodium Chloride 0.9% 1, 1000 000 ml @ 999 mls/hr IV . Q1H1M [facility] Rx#:[id number] Sodium Chloride 0.9% 1, 1000 000 ml @ 999 mls/hr IV . Q1H1M [facility] Rx#:[id number] Intake, IV Titration 2150 2.244 17.539 Amount Calcium Gluconate in NaCl 100 1 gm In Saline 1 100ml. bag @ 400 mls/hr IVPB ONCE [facility] Rx#:[id number] Lactated Ringers 1,000 ml 1000 @ 999 mls/hr IV .Q1H1M [facility] Rx#:[id number] Norepinephrine 32 mg In 0.131 0.22 Sodium Chloride 0.9% 218 ml @ 0.05 MCG/KG/MIN 1. 223 mls/hr IV .Q24H [facility] Rx#:[id number] Piperacillin-Tazobactam 3 100 .375 gm In Sodium Chloride 0.9% 100 ml @ 25 mls/hr IVPB Q12HR [facility] Rx #:[id number] Sodium Chloride 0.9% 1, 450 000 ml @ 75 mls/hr IV . [id number] [facility] Rx#:[id number] Sodium Chloride 0.9% 500 500 ml 500 ml @ 999 mls/hr IV .Q31M [facility] Rx#:[id number] propofoL 1,000 mg In 2.113 17.319 Empty Bag 1 bag @ 15 MCG/ KG/MIN 4.695 mls/hr IV . [id number] [facility] Rx#:[id number] Oral 0 Blood Product 0 Rc As-1 Unit 0 [id number] Output: Gastric Drainage 800 Urine 0 35 0 Emesis 160 ABP, PAP, CO, CI - Last 8 Hours Arterial Blood Pressure 122/48 Arterial Blood Pressure 106/45 Arterial Blood Pressure 83/38 Arterial Blood Pressure 136/52 Arterial Blood Pressure 99/43 Arterial Blood Pressure 116/50 Arterial Blood Pressure 124/49 Arterial Blood Pressure 113/47 Arterial Blood Pressure 108/41 Arterial Blood Pressure 101/39 Arterial Blood Pressure 104/39 Arterial Blood Pressure 106/40 Arterial Blood Pressure 110/41 Arterial Blood Pressure 114/43 GENERAL EXAM: Sedated, 81-year-old white female, Abbie with mechanical ventilator. HEAD: Normocephalic and atraumatic EYES: Normal reaction of pupils, equal size. NOSE: Clear with pink turbinates. THROAT: No erythema or exudates. NECK: No masses, no JVD. Right IJ double-lumen catheter in place CHEST: No chest wall deformity. LUNGS: Equal air entry with no crackles, wheeze, rhonchi or dullness. Intubated to the mechanical ventilator. CVS: S1 and S2 normal with no audible murmur, regular rhythm. No extra heart sounds. Heart rate 116 bpm ABDOMEN: Postsurgical midline abdominal incision with wound VAC in place. No he patosplenomegaly, no bowel sounds, no guarding or rigidity. SPINE: No scoliosis or deformity SKIN: Generalized pallor CENTRAL NERVOUS SYSTEM: No focal deficits, tone is normal in all 4 extremities. EXTREMITIES: There is mild nonpitting edema to the bilateral lower extremities. clubbing, or cyanosis. Peripheral pulses are intact. There is a right femoral arterial line in place. Results - Laboratory Findings CBC and BMP: 07/03/22 20:07 07/03/22 20:00 ABG ABG pH 7.24 (7.35-7.45) L 07/03/22 22:16 ABG pCO2 34 mmHg (35-45) L 07/03/22 22:16 ABG pO2 134 mmHg (83-108) H 07/03/22 22:16 ABG O2 Saturation 99.0 % (94-97) H 07/03/22 22:16 PT/INR, D-dimer PT 10.1 sec (9.0-12.0) 07/02/22 03:55 INR 1.0 (<1.2) 07/02/22 03:55 Abnormal lab findings: Abnormal Labs 07/02/22 07/02/22 07/02/22 03:55 03:55 05:55 WBC RBC Hgb Hct MCV MCHC RDW Plt Count Neutrophils # 9.2 H Neutrophils # (Manual) Lymphocytes # 0.9 L Monocytes # (Manual) Metamyelocytes # (Man) Myelocytes # (Manual) ABG pH ABG pCO2 ABG pO2 ABG HCO3 ABG Total CO2 ABG O2 Saturation VBG pH VBG HCO3 Sodium 134 L Potassium 5.9 H Chloride Carbon Dioxide 15 L BUN 64 H Creatinine 2.07 H Glucose 222 H POC Glucose (mg/dL) Plasma Lactic Acid Carlos Calcium AST 48 H ALT 39 H Total Protein Albumin Urine Protein 1+ H Urine Bacteria Rare H Hyaline Casts 7 H Urine Mucus Rare H Crossmatch 07/02/22 07/03/22 07/03/22 14:48 05:18 06:25 WBC 16.1 H RBC 3.50 L Hgb 10.8 L Hct MCV 100.3 H MCHC 30.8 L RDW 15.6 H Plt Count Neutrophils # Neutrophils # (Manual) 13.00 H Lymphocytes # Monocytes # (Manual) Metamyelocytes # (Man) Myelocytes # (Manual) ABG pH ABG pCO2 ABG pO2 ABG HCO3 ABG Total CO2 ABG O2 Saturation VBG pH VBG HCO3 Sodium 136 L Potassium 6.9 H* Chloride 110 H Carbon Dioxide 12 L BUN 81 H Creatinine 3.75 H Glucose 207 H POC Glucose (mg/dL) 259 H Plasma Lactic Acid Carlos Calcium 7.8 L AST ALT Total Protein Albumin Urine Protein Urine Bacteria Hyaline Casts Urine Mucus Crossmatch 07/03/22 07/03/22 07/03/22 14:38 14:38 14:39 WBC RBC Hgb Hct MCV MCHC RDW Plt Count Neutrophils # Neutrophils # (Manual) Lymphocytes # Monocytes # (Manual) Metamyelocytes # (Man) Myelocytes # (Manual) ABG pH ABG pCO2 ABG pO2 ABG HCO3 ABG Total CO2 ABG O2 Saturation VBG pH 7.10 L* VBG HCO3 12 L Sodium Potassium 6.7 H* Chloride Carbon Dioxide BUN Creatinine Glucose POC Glucose (mg/dL) Plasma Lactic Acid Carlos 6.6 H* Calcium AST ALT Total Protein Albumin Urine Protein Urine Bacteria Hyaline Casts Urine Mucus Crossmatch 07/03/22 07/03/22 07/03/22 19:10 19:11 19:14 WBC RBC 2.14 L Hgb 6.7 L* D Hct 22.6 L MCV 105.6 H D MCHC 29.8 L RDW 16.1 H Plt Count Neutrophils # Neutrophils # (Manual) Lymphocytes # Monocytes # (Manual) 1.13 H Metamyelocytes # (Man) 0.09 H Myelocytes # (Manual) 0.09 H ABG pH 6.98 L* ABG pCO2 ABG pO2 >400 H ABG HCO3 10 L* ABG Total CO2 12 L ABG O2 Saturation 99.9 H VBG pH VBG HCO3 Sodium Potassium Chloride Carbon Dioxide BUN Creatinine Glucose POC Glucose (mg/dL) 66 L Plasma Lactic Acid Carlos Calcium AST ALT Total Protein Albumin Urine Protein Urine Bacteria Hyaline Casts Urine Mucus Crossmatch 07/03/22 07/03/22 07/03/22 19:38 20:00 20:07 WBC RBC 1.78 L Hgb 5.5 L* Hct 18.4 L* MCV 103.1 H MCHC 30.0 L RDW 16.0 H Plt Count 113 L Neutrophils # Neutrophils # (Manual) Lymphocytes # Monocytes # (Manual) Metamyelocytes # (Man) Myelocytes # (Manual) ABG pH ABG pCO2 ABG pO2 ABG HCO3 ABG Total CO2 ABG O2 Saturation VBG pH VBG HCO3 Sodium Potassium 6.7 H* Chloride 115 H Carbon Dioxide 10 L BUN 76 H Creatinine 4.14 H Glucose 56 L POC Glucose (mg/dL) 195 H Plasma Lactic Acid Carlos Calcium 6.4 L* AST 206 H ALT 116 H Total Protein 3.6 L Albumin 1.9 L Urine Protein Urine Bacteria Hyaline Casts Urine Mucus Crossmatch 07/03/22 07/03/22 07/03/22 20:36 20:48 22:16 WBC RBC Hgb Hct MCV MCHC RDW Plt Count Neutrophils # Neutrophils # (Manual) Lymphocytes # Monocytes # (Manual) Metamyelocytes # (Man) Myelocytes # (Manual) ABG pH 7.12 L* 7.24 L ABG pCO2 50 H 34 L ABG pO2 262 H 134 H ABG HCO3 16 L 15 L ABG Total CO2 18 L 16 L ABG O2 Saturation 99.8 H 99.0 H VBG pH VBG HCO3 Sodium Potassium Chloride Carbon Dioxide BUN Creatinine Glucose POC Glucose (mg/dL) Plasma Lactic Acid Carlos Calcium AST ALT Total Protein Albumin Urine Protein Urine Bacteria Hyaline Casts Urine Mucus Crossmatch See Detail - Diagnostic Findings Chest x-ray: image reviewed Assessment and Plan Assessment: Postop day #1 status post exploratory laparotomy with segmental small bowel resection for a small bowel obstruction. The abdomen was left open, and a wound VAC was applied. Hypotension related to a component of hypovolemic shock and most likely abdominal sepsis. Patient has received a total of 4 L normal saline bolus and is currently on Levophed. Acute blood loss anemia, currently receiving 2 units PRBC. Lactic acidemia Anion gap metabolic acidosis secondary to above On the mechanical ventilator postoperatively Acute on chronic kidney injury with a creatinine of 4.14 Hyperkalemia, treated with 8 units of regular insulin, 1 amp D50 W, 2 g calcium gluconate, and 3 amps sodium bicarbonate Chronic kidney disease stage IV Shock liver Hypothyroidism History of peptic ulcers and GI bleed requiring PRBC transfusions in the past GERD Hiatal hernia Irritable bowel syndrome Plan: Patient's medications, labs, chest x-ray reviewed The patient will remain on the mechanical ventilator for tonight Increase respiratory rate 26 breaths per minute and tidal volume 400 Titrate FiO2 Bronchodilators every 4 hours Repeat labs including hemoglobin, potassium, lactic acid Continue empiric antibiotics The norepinephrine infusion for refractory hypotension Continue sodium bicarbonate 3 A and D5W at 125 ML's per hour Propofol for sedation maintaining a RASS between 1 in -1 NG tube to low intermittent suction Accu-Cheks every 6 hours DVT prophylaxis per surgery Protonix for GI prophylaxis The plan per surgical services, is to take the patient back to the operating room on Monday, once more hemodynamically stable The patient will continue to be monitored in the intensive care unit Prognosis is poor and guarded I have personally seen and examined the patient, performed the documentation and the assessment and plan as written. Number of minutes spent on the visit:20 Time with Patient: Greater than 30
[2022-07-04] MEDS: INSULIN ASPART (NovoLOG) 100 UNIT/ML VIAL SQ SCH ×4 (01:29→18:47)
[2022-07-04] MEDS: MORPHINE SULFATE 4 MG/ML SYRINGE IV PRN ×3 (01:52→17:16)
[2022-07-04] MEDS: metroNIDAZOLE-NS PMX 500 MG in SALINE 1 100ML.BAG IVPB SCH ×3 (02:56→17:18)
[2022-07-04 04:32] LABS: Anisocytosis Slight; HCT 37.2 % (34.0-46.0); MCH 30.8 pg (25.0-35.0); MCHC 32.8 g/dL (31.0-37.0); Mean Platelet Volume 9.9; Platelet Count 131 k/uL (150-450); RBC 3.97 m/uL (3.80-5.40); RDW 17.2 % (11.5-15.5)
[2022-07-04 04:40] LABS: HGB 12.2 gm/dL (11.4-16.0); MCV 93.6 fL (80.0-100.0)
[2022-07-04 04:57] LABS: Albumin 2.1 g/dL (3.5-5.0); Calcium 6.5 mg/dL (8.4-10.2); Total Bilirubin 1.4 mg/dL (0.2-1.3); Total Protein 3.9 g/dL (6.3-8.2)
[2022-07-04 04:58] LABS: Band Neutrophils % 46 %; Lymphocytes # (M) 0.82 k/uL (1.0-4.8); Metamyelocytes # (M) 0.97 k/uL (0); Metamyelocytes % 19 %; Monocytes # (M) 0.31 k/uL (0-1.0); Neutrophils % (M) 13 %; Nucleated Red Blood Cells 2 /100 WBC (0-0); Total Cells Counted 200; WBC 5.1 k/uL (3.8-10.6)
[2022-07-04 05:00] LABS: Anisocytosis (M) Present; Crenated RBC Present; Poikilocytosis (M) Present
[2022-07-04 05:44] LABS: Glucose,Whole Blood 113 mg/dL (70-110)
[2022-07-04] MEDS: LEVOTHYROXINE 75 MCG TAB PO SCH (05:54)
[2022-07-04 06:06] LABS: ABG Base Excess -9.5 mmol/L; ABG HCO3 17 mmol/L (21-25); ABG Oxygen Saturation 97.2 % (94-97); ABG PCO2 34 mmHg (35-45); ABG PH 7.31 (7.35-7.45); ABG PO2 103 mmHg (83-108); ABG TCO2 18 mmol/L (19-24); Allen Test Performed? Yes
[2022-07-04] MEDS: PANTOPRAZOLE 40 MG/10 ML VIAL IVP SCH (08:43)
[2022-07-04] MEDS: CYANOCOBALAMIN 500 MCG TAB PO SCH (08:43)
[2022-07-04] MEDS: allopurinoL 100 MG TAB PO SCH (08:43)
[2022-07-04] MEDS: CITALOPRAM HYDROBROMIDE 20 MG TAB PO SCH (08:43)
[2022-07-04] MEDS: CHLORHEXIDINE GLUCONATE 15 ML CUP MUCOUS MEM SCH ×2 (08:43→20:16)
[2022-07-04] MEDS: CHOLECALCIFEROL 10 MCG (400 IU) TABLET PO SCH (08:43)
[2022-07-04] MEDS: FERROUS SULFATE 325 MG TAB PO SCH (08:43)
[2022-07-04] MEDS: DEXTROSE 5% IN WATER 1,000 ML with SODIUM BICARB (1 MEQ/ML) 150 ML IV SCH ×3 (08:44→15:44)
[2022-07-04] MEDS: TAMSULOSIN 0.4 MG CAP.ER.24H PO SCH (08:44)
[2022-07-04 08:48] LABS: Glucose,Whole Blood 188 mg/dL (70-110)
--- NOTE | 2022-07-04 09:15 | P.PN ---
Subjective Patient is seen in follow-up for acute kidney injury on chronic kidney disease. Oliguric. Underwent small bowel resection 07/03/2022. Remains acidotic with bicarb level of 15. Currently on bicarb drip. Vital signs - afebrile. Tachycardic. On vasopressor support. General: Resting in bed. HEENT: Intubated. LUNGS: Scattered rhonchi. HEART: Tachycardic. ABDOMEN: Wound VAC noted. EXTREMITITES: No edema. Objective - Vital Signs Vital signs: Vital Signs Temp 97.6 F 07/04/22 04:00 Pulse 120 H 07/04/22 08:37 Resp 26 H 07/04/22 07:00 BP 128/59 07/04/22 03:51 Pulse Ox 97 07/04/22 07:00 FiO2 40 07/04/22 08:30 Intake & Output 07/03/22 07/04/22 07/04/22 18:59 06:59 18:59 Intake Total 3250 3714.852 125 Output Total 960 595 0 Balance 2290 3119.852 125 Weight 59 kg Intake: IV 1100 3100 125 Calcium Gluconate in NaCl 100 2 gm In Saline 1 100ml. bag @ 100 mls/hr IVPB ONCE ONE Rx#:[id number] Dextrose 5% in Water 1, 1000 125 000 ml @ 125 mls/hr IV . Q9H12M [facility] with Sodium Bicarb (1 Meq/ml) 150 ml Rx#:[id number] Sodium Chloride 0.9% 1, 1000 000 ml @ 999 mls/hr IV . Q1H1M ONE Rx#:[id number] Sodium Chloride 0.9% 1, 1000 000 ml @ 999 mls/hr IV . Q1H1M [facility] Rx#:[id number] Intake, IV Titration 2150 22.852 Amount Calcium Gluconate in NaCl 100 1 gm In Saline 1 100ml. bag @ 400 mls/hr IVPB ONCE ONE Rx#:[id number] Lactated Ringers 1,000 ml 1000 @ 999 mls/hr IV .Q1H1M [facility] Rx#:[id number] Norepinephrine 32 mg In 3.420 Sodium Chloride 0.9% 218 ml @ 0.05 MCG/KG/MIN 1. 223 mls/hr IV .Q24H [facility] Rx#:[id number] Piperacillin-Tazobactam 3 100 .375 gm In Sodium Chloride 0.9% 100 ml @ 25 mls/hr IVPB Q12HR [facility] Rx #:[id number] Sodium Chloride 0.9% 1, 450 000 ml @ 75 mls/hr IV . [id number] [facility] Rx#:[id number] Sodium Chloride 0.9% 500 500 ml 500 ml @ 999 mls/hr IV .Q31M [facility] Rx#:[id number] propofoL 1,000 mg In 19.432 Empty Bag 1 bag @ 15 MCG/ KG/MIN 4.695 mls/hr IV . [id number] [facility] Rx#:[id number] Oral 0 Blood Product 592 Rc As-1 Unit 310 [id number] Rc Pheresis 2 As3 Unit 282 [id number] Output: Gastric Drainage 800 350 Drainage 200 Medial Abdomen 200 Urine 0 45 0 Emesis 160 Other: Voiding Method Indwelling Catheter ABP, PAP, CO, CI - Last Documented Arterial Blood Pressure 114/53 - Labs CBC & Chem 7: 07/04/22 04:01 07/04/22 04:01 Labs: Abnormal Lab Results - Last 24 Hours (Table) 07/03/22 07/03/22 07/03/22 Range/Units 14:38 14:38 14:39 RBC (3.80-5.40) m/uL Hgb (11.4-16.0) gm/dL Hct (34.0-46.0) % MCV (80.0-100.0) fL MCHC (31.0-37.0) g/dL RDW (11.5-15.5) % Plt Count (150-450) k/uL Lymphocytes # (Manual) (1.0-4.8) k/uL Monocytes # (Manual) (0-1.0) k/uL Metamyelocytes # (Man) (0) k/uL Myelocytes # (Manual) (0) k/uL Nucleated RBCs (0-0) /100 WBC ABG pH (7.35-7.45) ABG pCO2 (35-45) mmHg ABG pO2 (83-108) mmHg ABG HCO3 (21-25) mmol/L ABG Total CO2 (19-24) mmol/L ABG O2 Saturation (94-97) % VBG pH 7.10 L* (7.31-7.41) VBG HCO3 12 L (24-28) mmol/L Potassium 6.7 H* (3.5-5.1) mmol/L Chloride (98-107) mmol/L Carbon Dioxide (22-30) mmol/L BUN (7-17) mg/dL Creatinine (0.52-1.04) mg/dL Glucose (74-99) mg/dL POC Glucose (mg/dL) (70-110) mg/dL Plasma Lactic Acid Carlos 6.6 H* (0.7-2.0) mmol/L Calcium (8.4-10.2) mg/dL Total Bilirubin (0.2-1.3) mg/dL AST (14-36) U/L ALT (4-34) U/L Total Protein (6.3-8.2) g/dL Albumin (3.5-5.0) g/dL Crossmatch 07/03/22 07/03/22 07/03/22 Range/Units 19:10 19:11 19:14 RBC 2.14 L (3.80-5.40) m/uL Hgb 6.7 L* D (11.4-16.0) gm/dL Hct 22.6 L (34.0-46.0) % MCV 105.6 H D (80.0-100.0) fL MCHC 29.8 L (31.0-37.0) g/dL RDW 16.1 H (11.5-15.5) % Plt Count (150-450) k/uL Lymphocytes # (Manual) (1.0-4.8) k/uL Monocytes # (Manual) 1.13 H (0-1.0) k/uL Metamyelocytes # (Man) 0.09 H (0) k/uL Myelocytes # (Manual) 0.09 H (0) k/uL Nucleated RBCs (0-0) /100 WBC ABG pH 6.98 L* (7.35-7.45) ABG pCO2 (35-45) mmHg ABG pO2 >400 H (83-108) mmHg ABG HCO3 10 L* (21-25) mmol/L ABG Total CO2 12 L (19-24) mmol/L ABG O2 Saturation 99.9 H (94-97) % VBG pH (7.31-7.41) VBG HCO3 (24-28) mmol/L Potassium (3.5-5.1) mmol/L Chloride (98-107) mmol/L Carbon Dioxide (22-30) mmol/L BUN (7-17) mg/dL Creatinine (0.52-1.04) mg/dL Glucose (74-99) mg/dL POC Glucose (mg/dL) 66 L (70-110) mg/dL Plasma Lactic Acid Carlos (0.7-2.0) mmol/L Calcium (8.4-10.2) mg/dL Total Bilirubin (0.2-1.3) mg/dL AST (14-36) U/L ALT (4-34) U/L Total Protein (6.3-8.2) g/dL Albumin (3.5-5.0) g/dL Crossmatch 07/03/22 07/03/22 07/03/22 Range/Units 19:38 20:00 20:07 RBC 1.78 L (3.80-5.40) m/uL Hgb 5.5 L* (11.4-16.0) gm/dL Hct 18.4 L* (34.0-46.0) % MCV 103.1 H (80.0-100.0) fL MCHC 30.0 L (31.0-37.0) g/dL RDW 16.0 H (11.5-15.5) % Plt Count 113 L (150-450) k/uL Lymphocytes # (Manual) (1.0-4.8) k/uL Monocytes # (Manual) (0-1.0) k/uL Metamyelocytes # (Man) (0) k/uL Myelocytes # (Manual) (0) k/uL Nucleated RBCs (0-0) /100 WBC ABG pH (7.35-7.45) ABG pCO2 (35-45) mmHg ABG pO2 (83-108) mmHg ABG HCO3 (21-25) mmol/L ABG Total CO2 (19-24) mmol/L ABG O2 Saturation (94-97) % VBG pH (7.31-7.41) VBG HCO3 (24-28) mmol/L Potassium 6.7 H* (3.5-5.1) mmol/L Chloride 115 H (98-107) mmol/L Carbon Dioxide 10 L (22-30) mmol/L BUN 76 H (7-17) mg/dL Creatinine 4.14 H (0.52-1.04) mg/dL Glucose 56 L (74-99) mg/dL POC Glucose (mg/dL) 195 H (70-110) mg/dL Plasma Lactic Acid Carlos (0.7-2.0) mmol/L Calcium 6.4 L* (8.4-10.2) mg/dL Total Bilirubin (0.2-1.3) mg/dL AST 206 H (14-36) U/L ALT 116 H (4-34) U/L Total Protein 3.6 L (6.3-8.2) g/dL Albumin 1.9 L (3.5-5.0) g/dL Crossmatch 07/03/22 07/03/22 07/03/22 Range/Units 20:36 20:48 22:16 RBC (3.80-5.40) m/uL Hgb (11.4-16.0) gm/dL Hct (34.0-46.0) % MCV (80.0-100.0) fL MCHC (31.0-37.0) g/dL RDW (11.5-15.5) % Plt Count (150-450) k/uL Lymphocytes # (Manual) (1.0-4.8) k/uL Monocytes # (Manual) (0-1.0) k/uL Metamyelocytes # (Man) (0) k/uL Myelocytes # (Manual) (0) k/uL Nucleated RBCs (0-0) /100 WBC ABG pH 7.12 L* 7.24 L (7.35-7.45) ABG pCO2 50 H 34 L (35-45) mmHg ABG pO2 262 H 134 H (83-108) mmHg ABG HCO3 16 L 15 L (21-25) mmol/L ABG Total CO2 18 L 16 L (19-24) mmol/L ABG O2 Saturation 99.8 H 99.0 H (94-97) % VBG pH (7.31-7.41) VBG HCO3 (24-28) mmol/L Potassium (3.5-5.1) mmol/L Chloride (98-107) mmol/L Carbon Dioxide (22-30) mmol/L BUN (7-17) mg/dL Creatinine (0.52-1.04) mg/dL Glucose (74-99) mg/dL POC Glucose (mg/dL) (70-110) mg/dL Plasma Lactic Acid Carlos (0.7-2.0) mmol/L Calcium (8.4-10.2) mg/dL Total Bilirubin (0.2-1.3) mg/dL AST (14-36) U/L ALT (4-34) U/L Total Protein (6.3-8.2) g/dL Albumin (3.5-5.0) g/dL Crossmatch See Detail 07/04/22 07/04/22 07/04/22 Range/Units 04:01 04:01 04:01 RBC (3.80-5.40) m/uL Hgb (11.4-16.0) gm/dL Hct (34.0-46.0) % MCV (80.0-100.0) fL MCHC (31.0-37.0) g/dL RDW 17.2 H (11.5-15.5) % Plt Count 131 L (150-450) k/uL Lymphocytes # (Manual) 0.82 L (1.0-4.8) k/uL Monocytes # (Manual) (0-1.0) k/uL Metamyelocytes # (Man) 0.97 H (0) k/uL Myelocytes # (Manual) (0) k/uL Nucleated RBCs 2 H (0-0) /100 WBC ABG pH (7.35-7.45) ABG pCO2 (35-45) mmHg ABG pO2 (83-108) mmHg ABG HCO3 (21-25) mmol/L ABG Total CO2 (19-24) mmol/L ABG O2 Saturation (94-97) % VBG pH (7.31-7.41) VBG HCO3 (24-28) mmol/L Potassium (3.5-5.1) mmol/L Chloride 114 H (98-107) mmol/L Carbon Dioxide 15 L (22-30) mmol/L BUN 79 H (7-17) mg/dL Creatinine 3.77 H (0.52-1.04) mg/dL Glucose 126 H (74-99) mg/dL POC Glucose (mg/dL) (70-110) mg/dL Plasma Lactic Acid Carlos 3.4 H* (0.7-2.0) mmol/L Calcium 6.5 L (8.4-10.2) mg/dL Total Bilirubin 1.4 H (0.2-1.3) mg/dL AST 1175 H (14-36) U/L ALT 610 H (4-34) U/L Total Protein 3.9 L (6.3-8.2) g/dL Albumin 2.1 L (3.5-5.0) g/dL Crossmatch 07/04/22 07/04/22 07/04/22 Range/Units 05:43 06:02 08:47 RBC (3.80-5.40) m/uL Hgb (11.4-16.0) gm/dL Hct (34.0-46.0) % MCV (80.0-100.0) fL MCHC (31.0-37.0) g/dL RDW (11.5-15.5) % Plt Count (150-450) k/uL Lymphocytes # (Manual) (1.0-4.8) k/uL Monocytes # (Manual) (0-1.0) k/uL Metamyelocytes # (Man) (0) k/uL Myelocytes # (Manual) (0) k/uL Nucleated RBCs (0-0) /100 WBC ABG pH 7.31 L (7.35-7.45) ABG pCO2 34 L (35-45) mmHg ABG pO2 (83-108) mmHg ABG HCO3 17 L (21-25) mmol/L ABG Total CO2 18 L (19-24) mmol/L ABG O2 Saturation 97.2 H (94-97) % VBG pH (7.31-7.41) VBG HCO3 (24-28) mmol/L Potassium (3.5-5.1) mmol/L Chloride (98-107) mmol/L Carbon Dioxide (22-30) mmol/L BUN (7-17) mg/dL Creatinine (0.52-1.04) mg/dL Glucose (74-99) mg/dL POC Glucose (mg/dL) 113 H 188 H (70-110) mg/dL Plasma Lactic Acid Carlos (0.7-2.0) mmol/L Calcium (8.4-10.2) mg/dL Total Bilirubin (0.2-1.3) mg/dL AST (14-36) U/L ALT (4-34) U/L Total Protein (6.3-8.2) g/dL Albumin (3.5-5.0) g/dL Crossmatch Assessment and Plan Plan: Assessment: 1. Acute kidney injury secondary to ATN secondary to hypotension/septic shock. Creatinine 3.77 today. Oliguric. No hydronephrosis noted on CAT scan. 2. Chronic kidney disease stage IV with baseline creatinine near 2 secondary to nephrosclerosis. 3. Metabolic acidosis secondary to acute kidney injury and lactic acidosis on bicarbonate drip. 4. Hyperkalemia secondary to acute kidney injury, acidosis. Improved with medical management. 5. Small bowel obstruction with ischemic bowel status post exploratory laparotomy with segmental small bowel resection 07/03/2022. Plan: Maintain bicarb drip. Avoid nephrotoxins. Wean FiO2 and vasopressors. Due to oliguria, acidosis, hyperkalemia, initiate renal replacement therapy. Plan for first treatment of hemodialysis today and second treatment tomorrow.
[2022-07-04] MEDS ORDERED: SODIUM CHLORIDE 0.9% 1,000 ML IV ONE (09:27)
[2022-07-04] MEDS ORDERED: FUROSEMIDE 10 MG/ML 10 ML VIAL IV STA (10:48)
[2022-07-04 11:15] LABS: Glucose,Whole Blood 187 mg/dL (70-110)
--- NOTE | 2022-07-04 11:22 | P.PN ---
Subjective Progress Note Date: 07/04/22 Hospital Course: 81-year-old female with history of IBS, hypothyroidism, depression, gout, anxie ty presenting with acute abdominal pain. In the ED, temperature 97.5, pulse 85, respiratory rate 19, blood pressure 93/64, saturating at 99% on room air. WBC 10.6, sodium 134, potassium 5.1, bicarb 15, creatinine 2.07, glucose 222, AST 48, ALT 39, troponin 0.012. 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 EKG showed normal sinus rhythm, right bundle branch block. Chest x-ray showed no acute process. Patient admitted for abdominal pain, nausea vomiting, possible ileus. Surgery consulted. In the ER, patient had a syncopal episode. A,, patient clearly has signs of severe sepsis, lactate is trending up, severe leukocytosis with bandemia. Likely source is abdomen. On broad-spectrum antibiotics, also has worsening acute kidney injury. For acidosis, started on IV sodium bicarbonate. Patient continued to worsen, and septic and hypovolemic shock. She was taken emergently for surgery. She had exploratory laparoscopy with segmental small bowel resection, was noted to have bowel ischemia. Currently she is intubated and sedated in the medical ICU. Subjective: Patient seen and examined at bedside. Patient has been stable since surgery. Currently intubated and sedated. She did receive 2 units of PRBCs overnight. Pertinent positives and negatives as discussed above, a complete review of systems was performed and all other systems are negative. Vitals Signs Reviewed. General: Intubated and sedated Derm: warm, dry Head: atraumatic, normocephalic, symmetric Eyes: pupils equal round reactive to light ENT: Nose and ears atraumatic Neck: No thyromegaly, supple Mouth: no lip lesion, mucus membranes moist Cardiovascular: S1S2 reg, tachycardic, no murmur, no edema Lungs: clear to auscultation bilateral, no rhonchi, no rales, no wheeze, no accessory muscle use, intubated Abdominal: soft, has a wound VAC, nondistended Ext: no gross muscle atrophy, no contractures Neuro: Sedated Psych: Unable to assess Data Reviewed Today: Pertinent Labs: WBC 5.1, hemoglobin 12.2, platelet 131, pH 7.31, pCO2 34, pota ssium 5, creatinine 3.77, lactate 4.7, AST 1175, ALT 610 Imaging: Chest x-ray independently interpreted, no significant opacities Assessment and Plan: Septic shock not requiring pressors at the moment Bowel ischemia Ischemic hepatitis Mechanical ventilation Acute kidney injury on chronic kidney disease Lactic acidosis High anion gap metabolic acidosis Possible cirrhosis Right bundle branch block -Pulmonology note reviewed, continue empiric antibiotics, on sodium bicarbonate drip at 1 25 mL an hour -Surgery following, possible repeat surgery today -Patient on IV Zosyn, and Flagyl -Blood cultures pending -Sodium bicarb drip at 1 25 mL an hour -Nephrology note reviewed, maintain the bicarb drip, hemodialysis today -Patient is critically ill, in medical ICU. Resolved: Hyperkalemia DVT ppx: Subcu heparin Code status: Full code Anticipated discharge place: Pending clinical course Anticipated discharge time: Pending clinical course Objective - Vital Signs Vital signs: Vital Signs Temp 98.8 F 07/04/22 08:00 Pulse 120 H 07/04/22 10:45 Resp 26 H 07/04/22 10:45 BP 128/59 07/04/22 03:51 Pulse Ox 100 07/04/22 10:45 FiO2 40 07/04/22 08:30 Intake & Output 07/03/22 07/04/22 07/04/22 18:59 06:59 18:59 Intake Total 3250 3714.852 624.695 Output Total 960 595 0 Balance 2290 3119.852 624.695 Weight 59 kg Intake: IV 1100 3100 500 Calcium Gluconate in NaCl 100 2 gm In Saline 1 100ml. bag @ 100 mls/hr IVPB ONCE ONE Rx#:[id number] Dextrose 5% in Water 1, 1000 500 000 ml @ 125 mls/hr IV . Q9H12M [facility] with Sodium Bicarb (1 Meq/ml) 150 ml Rx#:[id number] Sodium Chloride 0.9% 1, 1000 000 ml @ 999 mls/hr IV . Q1H1M [facility] Rx#:[id number] Sodium Chloride 0.9% 1, 1000 000 ml @ 999 mls/hr IV . Q1H1M [facility] Rx#:[id number] Intake, IV Titration 2150 22.852 124.695 Amount Calcium Gluconate in NaCl 100 1 gm In Saline 1 100ml. bag @ 400 mls/hr IVPB ONCE ONE Rx#:[id number] Lactated Ringers 1,000 ml 1000 @ 999 mls/hr IV .Q1H1M [facility] Rx#:[id number] Norepinephrine 32 mg In 3.420 24.695 Sodium Chloride 0.9% 218 ml @ 0.05 MCG/KG/MIN 1. 223 mls/hr IV .Q24H [facility] Rx#:[id number] Piperacillin-Tazobactam 3 100 .375 gm In Sodium Chloride 0.9% 100 ml @ 25 mls/hr IVPB Q12HR [facility] Rx #:[id number] Sodium Chloride 0.9% 1, 450 000 ml @ 75 mls/hr IV . [id number] [facility] Rx#:[id number] Sodium Chloride 0.9% 500 500 ml 500 ml @ 999 mls/hr IV .Q31M [facility] Rx#:[id number] metroNIDAZOLE-NS PMX 500 100 mg In Saline 1 100ml.bag @ 100 mls/hr IVPB Q8H [facility] Rx#:[id number] propofoL 1,000 mg In 19.432 Empty Bag 1 bag @ 15 MCG/ KG/MIN 4.695 mls/hr IV . [id number] [facility] Rx#:[id number] Oral 0 Blood Product 592 Rc As-1 Unit 310 [id number] Rc Pheresis 2 As3 Unit 282 [id number] Output: Gastric Drainage 800 350 Drainage 200 Medial Abdomen 200 Urine 0 45 0 Emesis 160 Other: Voiding Method Indwelling Catheter Indwelling Catheter ABP, PAP, CO, CI - Last Documented Arterial Blood Pressure 124/50 - Labs CBC & Chem 7: 07/04/22 04:01 07/04/22 04:01 Labs: Abnormal Lab Results - Last 24 Hours (Table) 07/03/22 07/03/22 07/03/22 Range/Units 14:38 14:38 14:39 RBC (3.80-5.40) m/uL Hgb (11.4-16.0) gm/dL Hct (34.0-46.0) % MCV (80.0-100.0) fL MCHC (31.0-37.0) g/dL RDW (11.5-15.5) % Plt Count (150-450) k/uL Lymphocytes # (Manual) (1.0-4.8) k/uL Monocytes # (Manual) (0-1.0) k/uL Metamyelocytes # (Man) (0) k/uL Myelocytes # (Manual) (0) k/uL Nucleated RBCs (0-0) /100 WBC ABG pH (7.35-7.45) ABG pCO2 (35-45) mmHg ABG pO2 (83-108) mmHg ABG HCO3 (21-25) mmol/L ABG Total CO2 (19-24) mmol/L ABG O2 Saturation (94-97) % VBG pH 7.10 L* (7.31-7.41) VBG HCO3 12 L (24-28) mmol/L Potassium 6.7 H* (3.5-5.1) mmol/L Chloride (98-107) mmol/L Carbon Dioxide (22-30) mmol/L BUN (7-17) mg/dL Creatinine (0.52-1.04) mg/dL Glucose (74-99) mg/dL POC Glucose (mg/dL) (70-110) mg/dL Plasma Lactic Acid Carlos 6.6 H* (0.7-2.0) mmol/L Calcium (8.4-10.2) mg/dL Total Bilirubin (0.2-1.3) mg/dL AST (14-36) U/L ALT (4-34) U/L Total Protein (6.3-8.2) g/dL Albumin (3.5-5.0) g/dL Crossmatch 07/03/22 07/03/22 07/03/22 Range/Units 19:10 19:11 19:14 RBC 2.14 L (3.80-5.40) m/uL Hgb 6.7 L* D (11.4-16.0) gm/dL Hct 22.6 L (34.0-46.0) % MCV 105.6 H D (80.0-100.0) fL MCHC 29.8 L (31.0-37.0) g/dL RDW 16.1 H (11.5-15.5) % Plt Count (150-450) k/uL Lymphocytes # (Manual) (1.0-4.8) k/uL Monocytes # (Manual) 1.13 H (0-1.0) k/uL Metamyelocytes # (Man) 0.09 H (0) k/uL Myelocytes # (Manual) 0.09 H (0) k/uL Nucleated RBCs (0-0) /100 WBC ABG pH 6.98 L* (7.35-7.45) ABG pCO2 (35-45) mmHg ABG pO2 >400 H (83-108) mmHg ABG HCO3 10 L* (21-25) mmol/L ABG Total CO2 12 L (19-24) mmol/L ABG O2 Saturation 99.9 H (94-97) % VBG pH (7.31-7.41) VBG HCO3 (24-28) mmol/L Potassium (3.5-5.1) mmol/L Chloride (98-107) mmol/L Carbon Dioxide (22-30) mmol/L BUN (7-17) mg/dL Creatinine (0.52-1.04) mg/dL Glucose (74-99) mg/dL POC Glucose (mg/dL) 66 L (70-110) mg/dL Plasma Lactic Acid Carlos (0.7-2.0) mmol/L Calcium (8.4-10.2) mg/dL Total Bilirubin (0.2-1.3) mg/dL AST (14-36) U/L ALT (4-34) U/L Total Protein (6.3-8.2) g/dL Albumin (3.5-5.0) g/dL Crossmatch 07/03/22 07/03/22 07/03/22 Range/Units 19:38 20:00 20:07 RBC 1.78 L (3.80-5.40) m/uL Hgb 5.5 L* (11.4-16.0) gm/dL Hct 18.4 L* (34.0-46.0) % MCV 103.1 H (80.0-100.0) fL MCHC 30.0 L (31.0-37.0) g/dL RDW 16.0 H (11.5-15.5) % Plt Count 113 L (150-450) k/uL Lymphocytes # (Manual) (1.0-4.8) k/uL Monocytes # (Manual) (0-1.0) k/uL Metamyelocytes # (Man) (0) k/uL Myelocytes # (Manual) (0) k/uL Nucleated RBCs (0-0) /100 WBC ABG pH (7.35-7.45) ABG pCO2 (35-45) mmHg ABG pO2 (83-108) mmHg ABG HCO3 (21-25) mmol/L ABG Total CO2 (19-24) mmol/L ABG O2 Saturation (94-97) % VBG pH (7.31-7.41) VBG HCO3 (24-28) mmol/L Potassium 6.7 H* (3.5-5.1) mmol/L Chloride 115 H (98-107) mmol/L Carbon Dioxide 10 L (22-30) mmol/L BUN 76 H (7-17) mg/dL Creatinine 4.14 H (0.52-1.04) mg/dL Glucose 56 L (74-99) mg/dL POC Glucose (mg/dL) 195 H (70-110) mg/dL Plasma Lactic Acid Carlos (0.7-2.0) mmol/L Calcium 6.4 L* (8.4-10.2) mg/dL Total Bilirubin (0.2-1.3) mg/dL AST 206 H (14-36) U/L ALT 116 H (4-34) U/L Total Protein 3.6 L (6.3-8.2) g/dL Albumin 1.9 L (3.5-5.0) g/dL Crossmatch 07/03/22 07/03/22 07/03/22 Range/Units 20:36 20:48 22:16 RBC (3.80-5.40) m/uL Hgb (11.4-16.0) gm/dL Hct (34.0-46.0) % MCV (80.0-100.0) fL MCHC (31.0-37.0) g/dL RDW (11.5-15.5) % Plt Count (150-450) k/uL Lymphocytes # (Manual) (1.0-4.8) k/uL Monocytes # (Manual) (0-1.0) k/uL Metamyelocytes # (Man) (0) k/uL Myelocytes # (Manual) (0) k/uL Nucleated RBCs (0-0) /100 WBC ABG pH 7.12 L* 7.24 L (7.35-7.45) ABG pCO2 50 H 34 L (35-45) mmHg ABG pO2 262 H 134 H (83-108) mmHg ABG HCO3 16 L 15 L (21-25) mmol/L ABG Total CO2 18 L 16 L (19-24) mmol/L ABG O2 Saturation 99.8 H 99.0 H (94-97) % VBG pH (7.31-7.41) VBG HCO3 (24-28) mmol/L Potassium (3.5-5.1) mmol/L Chloride (98-107) mmol/L Carbon Dioxide (22-30) mmol/L BUN (7-17) mg/dL Creatinine (0.52-1.04) mg/dL Glucose (74-99) mg/dL POC Glucose (mg/dL) (70-110) mg/dL Plasma Lactic Acid Carlos (0.7-2.0) mmol/L Calcium (8.4-10.2) mg/dL Total Bilirubin (0.2-1.3) mg/dL AST (14-36) U/L ALT (4-34) U/L Total Protein (6.3-8.2) g/dL Albumin (3.5-5.0) g/dL Crossmatch See Detail 07/04/22 07/04/22 07/04/22 Range/Units 04:01 04:01 04:01 RBC (3.80-5.40) m/uL Hgb (11.4-16.0) gm/dL Hct (34.0-46.0) % MCV (80.0-100.0) fL MCHC (31.0-37.0) g/dL RDW 17.2 H (11.5-15.5) % Plt Count 131 L (150-450) k/uL Lymphocytes # (Manual) 0.82 L (1.0-4.8) k/uL Monocytes # (Manual) (0-1.0) k/uL Metamyelocytes # (Man) 0.97 H (0) k/uL Myelocytes # (Manual) (0) k/uL Nucleated RBCs 2 H (0-0) /100 WBC ABG pH (7.35-7.45) ABG pCO2 (35-45) mmHg ABG pO2 (83-108) mmHg ABG HCO3 (21-25) mmol/L ABG Total CO2 (19-24) mmol/L ABG O2 Saturation (94-97) % VBG pH (7.31-7.41) VBG HCO3 (24-28) mmol/L Potassium (3.5-5.1) mmol/L Chloride 114 H (98-107) mmol/L Carbon Dioxide 15 L (22-30) mmol/L BUN 79 H (7-17) mg/dL Creatinine 3.77 H (0.52-1.04) mg/dL Glucose 126 H (74-99) mg/dL POC Glucose (mg/dL) (70-110) mg/dL Plasma Lactic Acid Carlos 3.4 H* (0.7-2.0) mmol/L Calcium 6.5 L (8.4-10.2) mg/dL Total Bilirubin 1.4 H (0.2-1.3) mg/dL AST 1175 H (14-36) U/L ALT 610 H (4-34) U/L Total Protein 3.9 L (6.3-8.2) g/dL Albumin 2.1 L (3.5-5.0) g/dL Crossmatch 07/04/22 07/04/22 07/04/22 Range/Units 05:43 06:02 08:47 RBC (3.80-5.40) m/uL Hgb (11.4-16.0) gm/dL Hct (34.0-46.0) % MCV (80.0-100.0) fL MCHC (31.0-37.0) g/dL RDW (11.5-15.5) % Plt Count (150-450) k/uL Lymphocytes # (Manual) (1.0-4.8) k/uL Monocytes # (Manual) (0-1.0) k/uL Metamyelocytes # (Man) (0) k/uL Myelocytes # (Manual) (0) k/uL Nucleated RBCs (0-0) /100 WBC ABG pH 7.31 L (7.35-7.45) ABG pCO2 34 L (35-45) mmHg ABG pO2 (83-108) mmHg ABG HCO3 17 L (21-25) mmol/L ABG Total CO2 18 L (19-24) mmol/L ABG O2 Saturation 97.2 H (94-97) % VBG pH (7.31-7.41) VBG HCO3 (24-28) mmol/L Potassium (3.5-5.1) mmol/L Chloride (98-107) mmol/L Carbon Dioxide (22-30) mmol/L BUN (7-17) mg/dL Creatinine (0.52-1.04) mg/dL Glucose (74-99) mg/dL POC Glucose (mg/dL) 113 H 188 H (70-110) mg/dL Plasma Lactic Acid Carlos (0.7-2.0) mmol/L Calcium (8.4-10.2) mg/dL Total Bilirubin (0.2-1.3) mg/dL AST (14-36) U/L ALT (4-34) U/L Total Protein (6.3-8.2) g/dL Albumin (3.5-5.0) g/dL Crossmatch 07/04/22 07/04/22 Range/Units 09:00 11:14 RBC (3.80-5.40) m/uL Hgb (11.4-16.0) gm/dL Hct (34.0-46.0) % MCV (80.0-100.0) fL MCHC (31.0-37.0) g/dL RDW (11.5-15.5) % Plt Count (150-450) k/uL Lymphocytes # (Manual) (1.0-4.8) k/uL Monocytes # (Manual) (0-1.0) k/uL Metamyelocytes # (Man) (0) k/uL Myelocytes # (Manual) (0) k/uL Nucleated RBCs (0-0) /100 WBC ABG pH (7.35-7.45) ABG pCO2 (35-45) mmHg ABG pO2 (83-108) mmHg ABG HCO3 (21-25) mmol/L ABG Total CO2 (19-24) mmol/L ABG O2 Saturation (94-97) % VBG pH (7.31-7.41) VBG HCO3 (24-28) mmol/L Potassium (3.5-5.1) mmol/L Chloride (98-107) mmol/L Carbon Dioxide (22-30) mmol/L BUN (7-17) mg/dL Creatinine (0.52-1.04) mg/dL Glucose (74-99) mg/dL POC Glucose (mg/dL) 187 H (70-110) mg/dL Plasma Lactic Acid Carlos 4.7 H* (0.7-2.0) mmol/L Calcium (8.4-10.2) mg/dL Total Bilirubin (0.2-1.3) mg/dL AST (14-36) U/L ALT (4-34) U/L Total Protein (6.3-8.2) g/dL Albumin (3.5-5.0) g/dL Crossmatch Microbiology - Last 24 Hours (Table) 07/03/22 22:37 Sputum Culture - Preliminary Sputum
--- NOTE | 2022-07-04 11:36 | P.PN ---
Subjective Progress Note Date: 07/04/22 Principal diagnosis: Ischemic bowel Objective - Vital Signs Vital signs: Vital Signs Temp 98.8 F 07/04/22 08:00 Pulse 120 H 07/04/22 10:45 Resp 26 H 07/04/22 10:45 BP 128/59 07/04/22 03:51 Pulse Ox 100 07/04/22 10:45 FiO2 40 07/04/22 08:30 Intake & Output 07/03/22 07/04/22 07/04/22 18:59 06:59 18:59 Intake Total 3250 3714.852 624.695 Output Total 960 595 0 Balance 2290 3119.852 624.695 Weight 59 kg Intake: IV 1100 3100 500 Calcium Gluconate in NaCl 100 2 gm In Saline 1 100ml. bag @ 100 mls/hr IVPB ONCE ONE Rx#:[id number] Dextrose 5% in Water 1, 1000 500 000 ml @ 125 mls/hr IV . Q9H12M SHARMIN with Sodium Bicarb (1 Meq/ml) 150 ml Rx#:[id number] Sodium Chloride 0.9% 1, 1000 000 ml @ 999 mls/hr IV . Q1H1M ONE Rx#:[id number] Sodium Chloride 0.9% 1, 1000 000 ml @ 999 mls/hr IV . Q1H1M ONE Rx#:[id number] Intake, IV Titration 2150 22.852 124.695 Amount Calcium Gluconate in NaCl 100 1 gm In Saline 1 100ml. bag @ 400 mls/hr IVPB ONCE ONE Rx#:[id number] Lactated Ringers 1,000 ml 1000 @ 999 mls/hr IV .Q1H1M [facility] Rx#:[id number] Norepinephrine 32 mg In 3.420 24.695 Sodium Chloride 0.9% 218 ml @ 0.05 MCG/KG/MIN 1. 223 mls/hr IV .Q24H [facility] Rx#:[id number] Piperacillin-Tazobactam 3 100 .375 gm In Sodium Chloride 0.9% 100 ml @ 25 mls/hr IVPB Q12HR [facility] Rx #:[id number] Sodium Chloride 0.9% 1, 450 000 ml @ 75 mls/hr IV . [id number] [facility] Rx#:[id number] Sodium Chloride 0.9% 500 500 ml 500 ml @ 999 mls/hr IV .Q31M ONE Rx#:[id number] metroNIDAZOLE-NS PMX 500 100 mg In Saline 1 100ml.bag @ 100 mls/hr IVPB Q8H [facility] Rx#:[id number] propofoL 1,000 mg In 19.432 Empty Bag 1 bag @ 15 MCG/ KG/MIN 4.695 mls/hr IV . [id number] [facility] Rx#:[id number] Oral 0 Blood Product 592 Rc As-1 Unit 310 [id number] Rc Pheresis 2 As3 Unit 282 [id number] Output: Gastric Drainage 800 350 Drainage 200 Medial Abdomen 200 Urine 0 45 0 Emesis 160 Other: Voiding Method Indwelling Catheter Indwelling Catheter ABP, PAP, CO, CI - Last Documented Arterial Blood Pressure 124/50 - Constitutional Constitutional Comment(s): Sedated on the ventilator, does respond with grimace - Respiratory Respiratory: bilateral: CTA - Cardiovascular Rhythm: regular (slight tachycardia) - Gastrointestinal Gastrointestinal Comment(s): Dressing is intact, minimal serosanguineous output from the wound VAC General gastrointestinal: Present: decreased bowel sounds, soft - Labs CBC & Chem 7: 07/04/22 04:01 07/04/22 04:01 Labs: Abnormal Lab Results - Last 24 Hours (Table) 07/03/22 07/03/22 07/03/22 Range/Units 14:38 14:38 14:39 RBC (3.80-5.40) m/uL Hgb (11.4-16.0) gm/dL Hct (34.0-46.0) % MCV (80.0-100.0) fL MCHC (31.0-37.0) g/dL RDW (11.5-15.5) % Plt Count (150-450) k/uL Lymphocytes # (Manual) (1.0-4.8) k/uL Monocytes # (Manual) (0-1.0) k/uL Metamyelocytes # (Man) (0) k/uL Myelocytes # (Manual) (0) k/uL Nucleated RBCs (0-0) /100 WBC ABG pH (7.35-7.45) ABG pCO2 (35-45) mmHg ABG pO2 (83-108) mmHg ABG HCO3 (21-25) mmol/L ABG Total CO2 (19-24) mmol/L ABG O2 Saturation (94-97) % VBG pH 7.10 L* (7.31-7.41) VBG HCO3 12 L (24-28) mmol/L Potassium 6.7 H* (3.5-5.1) mmol/L Chloride (98-107) mmol/L Carbon Dioxide (22-30) mmol/L BUN (7-17) mg/dL Creatinine (0.52-1.04) mg/dL Glucose (74-99) mg/dL POC Glucose (mg/dL) (70-110) mg/dL Plasma Lactic Acid Carlos 6.6 H* (0.7-2.0) mmol/L Calcium (8.4-10.2) mg/dL Total Bilirubin (0.2-1.3) mg/dL AST (14-36) U/L ALT (4-34) U/L Total Protein (6.3-8.2) g/dL Albumin (3.5-5.0) g/dL Crossmatch 07/03/22 07/03/22 07/03/22 Range/Units 19:10 19:11 19:14 RBC 2.14 L (3.80-5.40) m/uL Hgb 6.7 L* D (11.4-16.0) gm/dL Hct 22.6 L (34.0-46.0) % MCV 105.6 H D (80.0-100.0) fL MCHC 29.8 L (31.0-37.0) g/dL RDW 16.1 H (11.5-15.5) % Plt Count (150-450) k/uL Lymphocytes # (Manual) (1.0-4.8) k/uL Monocytes # (Manual) 1.13 H (0-1.0) k/uL Metamyelocytes # (Man) 0.09 H (0) k/uL Myelocytes # (Manual) 0.09 H (0) k/uL Nucleated RBCs (0-0) /100 WBC ABG pH 6.98 L* (7.35-7.45) ABG pCO2 (35-45) mmHg ABG pO2 >400 H (83-108) mmHg ABG HCO3 10 L* (21-25) mmol/L ABG Total CO2 12 L (19-24) mmol/L ABG O2 Saturation 99.9 H (94-97) % VBG pH (7.31-7.41) VBG HCO3 (24-28) mmol/L Potassium (3.5-5.1) mmol/L Chloride (98-107) mmol/L Carbon Dioxide (22-30) mmol/L BUN (7-17) mg/dL Creatinine (0.52-1.04) mg/dL Glucose (74-99) mg/dL POC Glucose (mg/dL) 66 L (70-110) mg/dL Plasma Lactic Acid Carlos (0.7-2.0) mmol/L Calcium (8.4-10.2) mg/dL Total Bilirubin (0.2-1.3) mg/dL AST (14-36) U/L ALT (4-34) U/L Total Protein (6.3-8.2) g/dL Albumin (3.5-5.0) g/dL Crossmatch 07/03/22 07/03/22 07/03/22 Range/Units 19:38 20:00 20:07 RBC 1.78 L (3.80-5.40) m/uL Hgb 5.5 L* (11.4-16.0) gm/dL Hct 18.4 L* (34.0-46.0) % MCV 103.1 H (80.0-100.0) fL MCHC 30.0 L (31.0-37.0) g/dL RDW 16.0 H (11.5-15.5) % Plt Count 113 L (150-450) k/uL Lymphocytes # (Manual) (1.0-4.8) k/uL Monocytes # (Manual) (0-1.0) k/uL Metamyelocytes # (Man) (0) k/uL Myelocytes # (Manual) (0) k/uL Nucleated RBCs (0-0) /100 WBC ABG pH (7.35-7.45) ABG pCO2 (35-45) mmHg ABG pO2 (83-108) mmHg ABG HCO3 (21-25) mmol/L ABG Total CO2 (19-24) mmol/L ABG O2 Saturation (94-97) % VBG pH (7.31-7.41) VBG HCO3 (24-28) mmol/L Potassium 6.7 H* (3.5-5.1) mmol/L Chloride 115 H (98-107) mmol/L Carbon Dioxide 10 L (22-30) mmol/L BUN 76 H (7-17) mg/dL Creatinine 4.14 H (0.52-1.04) mg/dL Glucose 56 L (74-99) mg/dL POC Glucose (mg/dL) 195 H (70-110) mg/dL Plasma Lactic Acid Carlos (0.7-2.0) mmol/L Calcium 6.4 L* (8.4-10.2) mg/dL Total Bilirubin (0.2-1.3) mg/dL AST 206 H (14-36) U/L ALT 116 H (4-34) U/L Total Protein 3.6 L (6.3-8.2) g/dL Albumin 1.9 L (3.5-5.0) g/dL Crossmatch 07/03/22 07/03/22 07/03/22 Range/Units 20:36 20:48 22:16 RBC (3.80-5.40) m/uL Hgb (11.4-16.0) gm/dL Hct (34.0-46.0) % MCV (80.0-100.0) fL MCHC (31.0-37.0) g/dL RDW (11.5-15.5) % Plt Count (150-450) k/uL Lymphocytes # (Manual) (1.0-4.8) k/uL Monocytes # (Manual) (0-1.0) k/uL Metamyelocytes # (Man) (0) k/uL Myelocytes # (Manual) (0) k/uL Nucleated RBCs (0-0) /100 WBC ABG pH 7.12 L* 7.24 L (7.35-7.45) ABG pCO2 50 H 34 L (35-45) mmHg ABG pO2 262 H 134 H (83-108) mmHg ABG HCO3 16 L 15 L (21-25) mmol/L ABG Total CO2 18 L 16 L (19-24) mmol/L ABG O2 Saturation 99.8 H 99.0 H (94-97) % VBG pH (7.31-7.41) VBG HCO3 (24-28) mmol/L Potassium (3.5-5.1) mmol/L Chloride (98-107) mmol/L Carbon Dioxide (22-30) mmol/L BUN (7-17) mg/dL Creatinine (0.52-1.04) mg/dL Glucose (74-99) mg/dL POC Glucose (mg/dL) (70-110) mg/dL Plasma Lactic Acid Carlos (0.7-2.0) mmol/L Calcium (8.4-10.2) mg/dL Total Bilirubin (0.2-1.3) mg/dL AST (14-36) U/L ALT (4-34) U/L Total Protein (6.3-8.2) g/dL Albumin (3.5-5.0) g/dL Crossmatch See Detail 07/04/22 07/04/22 07/04/22 Range/Units 04:01 04:01 04:01 RBC (3.80-5.40) m/uL Hgb (11.4-16.0) gm/dL Hct (34.0-46.0) % MCV (80.0-100.0) fL MCHC (31.0-37.0) g/dL RDW 17.2 H (11.5-15.5) % Plt Count 131 L (150-450) k/uL Lymphocytes # (Manual) 0.82 L (1.0-4.8) k/uL Monocytes # (Manual) (0-1.0) k/uL Metamyelocytes # (Man) 0.97 H (0) k/uL Myelocytes # (Manual) (0) k/uL Nucleated RBCs 2 H (0-0) /100 WBC ABG pH (7.35-7.45) ABG pCO2 (35-45) mmHg ABG pO2 (83-108) mmHg ABG HCO3 (21-25) mmol/L ABG Total CO2 (19-24) mmol/L ABG O2 Saturation (94-97) % VBG pH (7.31-7.41) VBG HCO3 (24-28) mmol/L Potassium (3.5-5.1) mmol/L Chloride 114 H (98-107) mmol/L Carbon Dioxide 15 L (22-30) mmol/L BUN 79 H (7-17) mg/dL Creatinine 3.77 H (0.52-1.04) mg/dL Glucose 126 H (74-99) mg/dL POC Glucose (mg/dL) (70-110) mg/dL Plasma Lactic Acid Carlos 3.4 H* (0.7-2.0) mmol/L Calcium 6.5 L (8.4-10.2) mg/dL Total Bilirubin 1.4 H (0.2-1.3) mg/dL AST 1175 H (14-36) U/L ALT 610 H (4-34) U/L Total Protein 3.9 L (6.3-8.2) g/dL Albumin 2.1 L (3.5-5.0) g/dL Crossmatch 07/04/22 07/04/22 07/04/22 Range/Units 05:43 06:02 08:47 RBC (3.80-5.40) m/uL Hgb (11.4-16.0) gm/dL Hct (34.0-46.0) % MCV (80.0-100.0) fL MCHC (31.0-37.0) g/dL RDW (11.5-15.5) % Plt Count (150-450) k/uL Lymphocytes # (Manual) (1.0-4.8) k/uL Monocytes # (Manual) (0-1.0) k/uL Metamyelocytes # (Man) (0) k/uL Myelocytes # (Manual) (0) k/uL Nucleated RBCs (0-0) /100 WBC ABG pH 7.31 L (7.35-7.45) ABG pCO2 34 L (35-45) mmHg ABG pO2 (83-108) mmHg ABG HCO3 17 L (21-25) mmol/L ABG Total CO2 18 L (19-24) mmol/L ABG O2 Saturation 97.2 H (94-97) % VBG pH (7.31-7.41) VBG HCO3 (24-28) mmol/L Potassium (3.5-5.1) mmol/L Chloride (98-107) mmol/L Carbon Dioxide (22-30) mmol/L BUN (7-17) mg/dL Creatinine (0.52-1.04) mg/dL Glucose (74-99) mg/dL POC Glucose (mg/dL) 113 H 188 H (70-110) mg/dL Plasma Lactic Acid Carlos (0.7-2.0) mmol/L Calcium (8.4-10.2) mg/dL Total Bilirubin (0.2-1.3) mg/dL AST (14-36) U/L ALT (4-34) U/L Total Protein (6.3-8.2) g/dL Albumin (3.5-5.0) g/dL Crossmatch 07/04/22 07/04/22 Range/Units 09:00 11:14 RBC (3.80-5.40) m/uL Hgb (11.4-16.0) gm/dL Hct (34.0-46.0) % MCV (80.0-100.0) fL MCHC (31.0-37.0) g/dL RDW (11.5-15.5) % Plt Count (150-450) k/uL Lymphocytes # (Manual) (1.0-4.8) k/uL Monocytes # (Manual) (0-1.0) k/uL Metamyelocytes # (Man) (0) k/uL Myelocytes # (Manual) (0) k/uL Nucleated RBCs (0-0) /100 WBC ABG pH (7.35-7.45) ABG pCO2 (35-45) mmHg ABG pO2 (83-108) mmHg ABG HCO3 (21-25) mmol/L ABG Total CO2 (19-24) mmol/L ABG O2 Saturation (94-97) % VBG pH (7.31-7.41) VBG HCO3 (24-28) mmol/L Potassium (3.5-5.1) mmol/L Chloride (98-107) mmol/L Carbon Dioxide (22-30) mmol/L BUN (7-17) mg/dL Creatinine (0.52-1.04) mg/dL Glucose (74-99) mg/dL POC Glucose (mg/dL) 187 H (70-110) mg/dL Plasma Lactic Acid Carlos 4.7 H* (0.7-2.0) mmol/L Calcium (8.4-10.2) mg/dL Total Bilirubin (0.2-1.3) mg/dL AST (14-36) U/L ALT (4-34) U/L Total Protein (6.3-8.2) g/dL Albumin (3.5-5.0) g/dL Crossmatch Microbiology - Last 24 Hours (Table) 07/03/22 22:37 Sputum Culture - Preliminary Sputum Assessment and Plan (1) Abdominal pain Current Visit: Yes Status: Acute Code(s): R10.9 - UNSPECIFIED ABDOMINAL PAIN SNOMED Code(s): 72606897 (2) Ischemic bowel disease Current Visit: Yes Status: Acute Code(s): K55.9 - VASCULAR DISORDER OF INTESTINE, UNSPECIFIED SNOMED Code(s): 86609868 (3) Renal insufficiency Current Visit: No Status: Acute Code(s): N28.9 - DISORDER OF KIDNEY AND URETER, UNSPECIFIED SNOMED Code(s): 004640094 Plan: Patient is fairly stable at this point. Pressors have been weaned down. She is having some oligoanuria and was treated with additional fluid bolus, possible dose of Lasix. Nephrology is considering hemodialysis. We will continue the IV antibiotics. As long as the patient is hemodynamically stable she will go to the OR tomorrow for second look operation. Check the viability of the remaining small bowel length at that time hopefully she could have an anastomosis.
--- NOTE | 2022-07-04 12:45 | XR ---
EXAMINATION TYPE: XR chest 1V portable DATE OF EXAM: 07/04/2022 COMPARISON: 07/03/2022 INDICATION: Short of breath TECHNIQUE: Single frontal view of the chest is obtained. FINDINGS: The heart size is normal. The pulmonary vasculature is normal. Small left pleural effusion is present. Right central venous catheter tip is within the right atrium. Nasogastric tube transverses the thorax. Endotracheal tube is 1.7 cm above the amanda IMPRESSION: 1. Small left pleural effusion. 2. Lines and catheters discussed above
--- NOTE | 2022-07-04 12:50 | P.GSCN ---
History of Present Illness Consult date: 07/04/22 Reason for Consult: HD catheter placement Requesting physician: Aníbal Cesar History of present illness: 81-year-old female who presented to the emergency department 2 days ago with complaints of acute onset of abdominal pain. She has a past medical history including IBS, peptic ulcers, GI bleed, GERD, chronic kidney disease, hypothyroidism and hypertension. Patient was admitted for abdominal pain with surgical consult for ileus/small bowel obstruction. NG tube has been placed for decompression, apparently the patient's condition progressively worsened throughout the day she was taken to surgery. She underwent exploratory laparotomy with findings of small bowel obstruction with ischemic bowel status post segmental bowel resection yesterday with Dr. Winn. Patient was admitted to the ICU post surgery with sepsis, currently sedated and intubated. She was noted to be anemic with a hemoglobin down to 5.5 post surgery and was transfused 2 units of blood. Patient with acute on chronic kidney injury, oliguric. Sodium 140 potassium 5.0 BUN 79 creatinine 3.7 Vascular surgery was consulted for temporary hemodialysis catheter placement. Review of Systems ROS unobtainable: due to endotracheal tube Past Medical History Past Medical History: GERD/Reflux, GI Bleed, Hypertension, Osteoarthritis (OA), Renal Disease, Syncope, Thyroid Disorder, Vascular Disorder Additional Past Medical History / Comment(s): CKD stage III, IBS, past constipation but diarrhea past few months, duodenal and antral ulcer/acute anemia with transfusion, chronic anemia, hiatal hernia, varicosities, (L) side sciatica, arthritis in neck and L hip, hypothyroid, sinus problems. History of Any Multi-Drug Resistant Organisms: None Reported Past Surgical History: Appendectomy, Cholecystectomy, Hysterectomy Additional Past Surgical History / Comment(s): D&C, EGD, colonoscopy, yovana cataracts Past Anesthesia/Blood Transfusion Reactions: No Reported Reaction Additional Past Anesthesia/Blood Transfusion Reaction / Comm: Pt has received blood in past without reaction. Smoking Status: Never smoker - Past Family History Father Family Medical History: Cancer Additional Family Medical History / Comment(s): Father at the age of 57yrs from cancer which pt thinks was esophageal. Mother Family Medical History: Hypertension Additional Family Medical History / Comment(s): Mother lived to be 97yrs old. Medications and Allergies Home Medications Medication Instructions Recorded Confirmed Type Levothyroxine Sodium [Synthroid] 75 mcg PO DAILY 10/13/17 07/02/22 History Citalopram Hydrobromide [CeleXA] 40 mg PO DAILY 08/25/20 07/02/22 History allopurinoL [Zyloprim] 100 mg PO DAILY 08/25/20 07/02/22 History Pantoprazole Sodium [Protonix] 40 mg PO HS 11/13/21 07/02/22 History ALPRAZolam [Xanax] 0.5 mg PO HS 07/02/22 07/02/22 History Cholecalciferol [Vitamin D3 (10 10 mcg PO DAILY 07/02/22 07/02/22 History Mcg = 400 Iu)] Cyanocobalamin [Vitamin B-12] 500 mcg PO DAILY 07/02/22 07/02/22 History Docusate [Colace] 100 mg PO DAILY PRN 07/02/22 07/02/22 History Ferrous Gluconate 240 mg PO DAILY 07/02/22 07/02/22 History Furosemide [Lasix] 20 mg PO DAILY PRN 07/02/22 07/02/22 History Tamsulosin [Flomax] 0.4 mg PO DAILY 07/02/22 07/02/22 History Allergies Allergy/AdvReac Type Severity Reaction Status Date / Time No Known Allergies Allergy Verified 07/02/22 11:26 Surgical - Exam Vital Signs Temp Pulse Resp BP Pulse Ox 97.5 F L 85 19 93/64 99 07/02/22 03:04 07/02/22 03:04 07/02/22 03:04 07/02/22 03:04 07/02/22 03:04 General appearance: The patient sedated and intubated on mechanical ventilation. HET: Head is normocephalic and atraumatic. Neck: Supple without lymphadenopathy. Trachea midline. Heart: Regular. Lungs: Equal expansion, mechanical ventilation. Abdomen: Soft, nondistended, wound VAC in place with good suction. Extremities: Normal skin color and turgor. Right groin was central line. Neurological: Sedated and intubated. Results - Labs 07/04/22 04:01 07/04/22 04:01 Abnormal Lab Results - Last 24 Hours (Table) 07/03/22 07/03/22 07/03/22 Range/Units 14:38 14:38 14:39 RBC (3.80-5.40) m/uL Hgb (11.4-16.0) gm/dL Hct (34.0-46.0) % MCV (80.0-100.0) fL MCHC (31.0-37.0) g/dL RDW (11.5-15.5) % Plt Count (150-450) k/uL Lymphocytes # (Manual) (1.0-4.8) k/uL Monocytes # (Manual) (0-1.0) k/uL Metamyelocytes # (Man) (0) k/uL Myelocytes # (Manual) (0) k/uL Nucleated RBCs (0-0) /100 WBC ABG pH (7.35-7.45) ABG pCO2 (35-45) mmHg ABG pO2 (83-108) mmHg ABG HCO3 (21-25) mmol/L ABG Total CO2 (19-24) mmol/L ABG O2 Saturation (94-97) % VBG pH 7.10 L* (7.31-7.41) VBG HCO3 12 L (24-28) mmol/L Potassium 6.7 H* (3.5-5.1) mmol/L Chloride (98-107) mmol/L Carbon Dioxide (22-30) mmol/L BUN (7-17) mg/dL Creatinine (0.52-1.04) mg/dL Glucose (74-99) mg/dL POC Glucose (mg/dL) (70-110) mg/dL Plasma Lactic Acid Carlos 6.6 H* (0.7-2.0) mmol/L Calcium (8.4-10.2) mg/dL Total Bilirubin (0.2-1.3) mg/dL AST (14-36) U/L ALT (4-34) U/L Total Protein (6.3-8.2) g/dL Albumin (3.5-5.0) g/dL Crossmatch 07/03/22 07/03/22 07/03/22 Range/Units 19:10 19:11 19:14 RBC 2.14 L (3.80-5.40) m/uL Hgb 6.7 L* D (11.4-16.0) gm/dL Hct 22.6 L (34.0-46.0) % MCV 105.6 H D (80.0-100.0) fL MCHC 29.8 L (31.0-37.0) g/dL RDW 16.1 H (11.5-15.5) % Plt Count (150-450) k/uL Lymphocytes # (Manual) (1.0-4.8) k/uL Monocytes # (Manual) 1.13 H (0-1.0) k/uL Metamyelocytes # (Man) 0.09 H (0) k/uL Myelocytes # (Manual) 0.09 H (0) k/uL Nucleated RBCs (0-0) /100 WBC ABG pH 6.98 L* (7.35-7.45) ABG pCO2 (35-45) mmHg ABG pO2 >400 H (83-108) mmHg ABG HCO3 10 L* (21-25) mmol/L ABG Total CO2 12 L (19-24) mmol/L ABG O2 Saturation 99.9 H (94-97) % VBG pH (7.31-7.41) VBG HCO3 (24-28) mmol/L Potassium (3.5-5.1) mmol/L Chloride (98-107) mmol/L Carbon Dioxide (22-30) mmol/L BUN (7-17) mg/dL Creatinine (0.52-1.04) mg/dL Glucose (74-99) mg/dL POC Glucose (mg/dL) 66 L (70-110) mg/dL Plasma Lactic Acid Carlos (0.7-2.0) mmol/L Calcium (8.4-10.2) mg/dL Total Bilirubin (0.2-1.3) mg/dL AST (14-36) U/L ALT (4-34) U/L Total Protein (6.3-8.2) g/dL Albumin (3.5-5.0) g/dL Crossmatch 07/03/22 07/03/22 07/03/22 Range/Units 19:38 20:00 20:07 RBC 1.78 L (3.80-5.40) m/uL Hgb 5.5 L* (11.4-16.0) gm/dL Hct 18.4 L* (34.0-46.0) % MCV 103.1 H (80.0-100.0) fL MCHC 30.0 L (31.0-37.0) g/dL RDW 16.0 H (11.5-15.5) % Plt Count 113 L (150-450) k/uL Lymphocytes # (Manual) (1.0-4.8) k/uL Monocytes # (Manual) (0-1.0) k/uL Metamyelocytes # (Man) (0) k/uL Myelocytes # (Manual) (0) k/uL Nucleated RBCs (0-0) /100 WBC ABG pH (7.35-7.45) ABG pCO2 (35-45) mmHg ABG pO2 (83-108) mmHg ABG HCO3 (21-25) mmol/L ABG Total CO2 (19-24) mmol/L ABG O2 Saturation (94-97) % VBG pH (7.31-7.41) VBG HCO3 (24-28) mmol/L Potassium 6.7 H* (3.5-5.1) mmol/L Chloride 115 H (98-107) mmol/L Carbon Dioxide 10 L (22-30) mmol/L BUN 76 H (7-17) mg/dL Creatinine 4.14 H (0.52-1.04) mg/dL Glucose 56 L (74-99) mg/dL POC Glucose (mg/dL) 195 H (70-110) mg/dL Plasma Lactic Acid Carlos (0.7-2.0) mmol/L Calcium 6.4 L* (8.4-10.2) mg/dL Total Bilirubin (0.2-1.3) mg/dL AST 206 H (14-36) U/L ALT 116 H (4-34) U/L Total Protein 3.6 L (6.3-8.2) g/dL Albumin 1.9 L (3.5-5.0) g/dL Crossmatch 07/03/22 07/03/22 07/03/22 Range/Units 20:36 20:48 22:16 RBC (3.80-5.40) m/uL Hgb (11.4-16.0) gm/dL Hct (34.0-46.0) % MCV (80.0-100.0) fL MCHC (31.0-37.0) g/dL RDW (11.5-15.5) % Plt Count (150-450) k/uL Lymphocytes # (Manual) (1.0-4.8) k/uL Monocytes # (Manual) (0-1.0) k/uL Metamyelocytes # (Man) (0) k/uL Myelocytes # (Manual) (0) k/uL Nucleated RBCs (0-0) /100 WBC ABG pH 7.12 L* 7.24 L (7.35-7.45) ABG pCO2 50 H 34 L (35-45) mmHg ABG pO2 262 H 134 H (83-108) mmHg ABG HCO3 16 L 15 L (21-25) mmol/L ABG Total CO2 18 L 16 L (19-24) mmol/L ABG O2 Saturation 99.8 H 99.0 H (94-97) % VBG pH (7.31-7.41) VBG HCO3 (24-28) mmol/L Potassium (3.5-5.1) mmol/L Chloride (98-107) mmol/L Carbon Dioxide (22-30) mmol/L BUN (7-17) mg/dL Creatinine (0.52-1.04) mg/dL Glucose (74-99) mg/dL POC Glucose (mg/dL) (70-110) mg/dL Plasma Lactic Acid Carlos (0.7-2.0) mmol/L Calcium (8.4-10.2) mg/dL Total Bilirubin (0.2-1.3) mg/dL AST (14-36) U/L ALT (4-34) U/L Total Protein (6.3-8.2) g/dL Albumin (3.5-5.0) g/dL Crossmatch See Detail 07/04/22 07/04/22 07/04/22 Range/Units 04:01 04:01 04:01 RBC (3.80-5.40) m/uL Hgb (11.4-16.0) gm/dL Hct (34.0-46.0) % MCV (80.0-100.0) fL MCHC (31.0-37.0) g/dL RDW 17.2 H (11.5-15.5) % Plt Count 131 L (150-450) k/uL Lymphocytes # (Manual) 0.82 L (1.0-4.8) k/uL Monocytes # (Manual) (0-1.0) k/uL Metamyelocytes # (Man) 0.97 H (0) k/uL Myelocytes # (Manual) (0) k/uL Nucleated RBCs 2 H (0-0) /100 WBC ABG pH (7.35-7.45) ABG pCO2 (35-45) mmHg ABG pO2 (83-108) mmHg ABG HCO3 (21-25) mmol/L ABG Total CO2 (19-24) mmol/L ABG O2 Saturation (94-97) % VBG pH (7.31-7.41) VBG HCO3 (24-28) mmol/L Potassium (3.5-5.1) mmol/L Chloride 114 H (98-107) mmol/L Carbon Dioxide 15 L (22-30) mmol/L BUN 79 H (7-17) mg/dL Creatinine 3.77 H (0.52-1.04) mg/dL Glucose 126 H (74-99) mg/dL POC Glucose (mg/dL) (70-110) mg/dL Plasma Lactic Acid Carlos 3.4 H* (0.7-2.0) mmol/L Calcium 6.5 L (8.4-10.2) mg/dL Total Bilirubin 1.4 H (0.2-1.3) mg/dL AST 1175 H (14-36) U/L ALT 610 H (4-34) U/L Total Protein 3.9 L (6.3-8.2) g/dL Albumin 2.1 L (3.5-5.0) g/dL Crossmatch 07/04/22 07/04/22 07/04/22 Range/Units 05:43 06:02 08:47 RBC (3.80-5.40) m/uL Hgb (11.4-16.0) gm/dL Hct (34.0-46.0) % MCV (80.0-100.0) fL MCHC (31.0-37.0) g/dL RDW (11.5-15.5) % Plt Count (150-450) k/uL Lymphocytes # (Manual) (1.0-4.8) k/uL Monocytes # (Manual) (0-1.0) k/uL Metamyelocytes # (Man) (0) k/uL Myelocytes # (Manual) (0) k/uL Nucleated RBCs (0-0) /100 WBC ABG pH 7.31 L (7.35-7.45) ABG pCO2 34 L (35-45) mmHg ABG pO2 (83-108) mmHg ABG HCO3 17 L (21-25) mmol/L ABG Total CO2 18 L (19-24) mmol/L ABG O2 Saturation 97.2 H (94-97) % VBG pH (7.31-7.41) VBG HCO3 (24-28) mmol/L Potassium (3.5-5.1) mmol/L Chloride (98-107) mmol/L Carbon Dioxide (22-30) mmol/L BUN (7-17) mg/dL Creatinine (0.52-1.04) mg/dL Glucose (74-99) mg/dL POC Glucose (mg/dL) 113 H 188 H (70-110) mg/dL Plasma Lactic Acid Carlos (0.7-2.0) mmol/L Calcium (8.4-10.2) mg/dL Total Bilirubin (0.2-1.3) mg/dL AST (14-36) U/L ALT (4-34) U/L Total Protein (6.3-8.2) g/dL Albumin (3.5-5.0) g/dL Crossmatch 07/04/22 07/04/22 Range/Units 09:00 11:14 RBC (3.80-5.40) m/uL Hgb (11.4-16.0) gm/dL Hct (34.0-46.0) % MCV (80.0-100.0) fL MCHC (31.0-37.0) g/dL RDW (11.5-15.5) % Plt Count (150-450) k/uL Lymphocytes # (Manual) (1.0-4.8) k/uL Monocytes # (Manual) (0-1.0) k/uL Metamyelocytes # (Man) (0) k/uL Myelocytes # (Manual) (0) k/uL Nucleated RBCs (0-0) /100 WBC ABG pH (7.35-7.45) ABG pCO2 (35-45) mmHg ABG pO2 (83-108) mmHg ABG HCO3 (21-25) mmol/L ABG Total CO2 (19-24) mmol/L ABG O2 Saturation (94-97) % VBG pH (7.31-7.41) VBG HCO3 (24-28) mmol/L Potassium (3.5-5.1) mmol/L Chloride (98-107) mmol/L Carbon Dioxide (22-30) mmol/L BUN (7-17) mg/dL Creatinine (0.52-1.04) mg/dL Glucose (74-99) mg/dL POC Glucose (mg/dL) 187 H (70-110) mg/dL Plasma Lactic Acid Carlos 4.7 H* (0.7-2.0) mmol/L Calcium (8.4-10.2) mg/dL Total Bilirubin (0.2-1.3) mg/dL AST (14-36) U/L ALT (4-34) U/L Total Protein (6.3-8.2) g/dL Albumin (3.5-5.0) g/dL Crossmatch Microbiology - Last 24 Hours (Table) 07/03/22 22:37 Sputum Culture - Preliminary Sputum Diabetes panel 07/03/22 07/03/22 07/04/22 Range/Units 14:38 20:00 04:01 Sodium 137 140 (137-145) mmol/L Potassium 6.7 H* 6.7 H* 5.0 (3.5-5.1) mmol/L Chloride 115 H 114 H (98-107) mmol/L Carbon Dioxide 10 L 15 L (22-30) mmol/L BUN 76 H 79 H (7-17) mg/dL Creatinine 4.14 H 3.77 H (0.52-1.04) mg/dL Glucose 56 L 126 H (74-99) mg/dL Calcium 6.4 L* 6.5 L (8.4-10.2) mg/dL AST 206 H 1175 H (14-36) U/L ALT 116 H 610 H (4-34) U/L Alkaline Phosphatase 61 86 (38-126) U/L Total Protein 3.6 L 3.9 L (6.3-8.2) g/dL Albumin 1.9 L 2.1 L (3.5-5.0) g/dL Calcium panel 07/03/22 07/04/22 Range/Units 20:00 04:01 Calcium 6.4 L* 6.5 L (8.4-10.2) mg/dL Albumin 1.9 L 2.1 L (3.5-5.0) g/dL Pituitary panel 07/03/22 07/03/22 07/04/22 Range/Units 14:38 20:00 04:01 Sodium 137 140 (137-145) mmol/L Potassium 6.7 H* 6.7 H* 5.0 (3.5-5.1) mmol/L Chloride 115 H 114 H (98-107) mmol/L Carbon Dioxide 10 L 15 L (22-30) mmol/L BUN 76 H 79 H (7-17) mg/dL Creatinine 4.14 H 3.77 H (0.52-1.04) mg/dL Glucose 56 L 126 H (74-99) mg/dL Calcium 6.4 L* 6.5 L (8.4-10.2) mg/dL Adrenal panel 07/03/22 07/03/22 07/04/22 Range/Units 14:38 20:00 04:01 Sodium 137 140 (137-145) mmol/L Potassium 6.7 H* 6.7 H* 5.0 (3.5-5.1) mmol/L Chloride 115 H 114 H (98-107) mmol/L Carbon Dioxide 10 L 15 L (22-30) mmol/L BUN 76 H 79 H (7-17) mg/dL Creatinine 4.14 H 3.77 H (0.52-1.04) mg/dL Glucose 56 L 126 H (74-99) mg/dL Calcium 6.4 L* 6.5 L (8.4-10.2) mg/dL Total Bilirubin 0.5 1.4 H (0.2-1.3) mg/dL AST 206 H 1175 H (14-36) U/L ALT 116 H 610 H (4-34) U/L Alkaline Phosphatase 61 86 (38-126) U/L Total Protein 3.6 L 3.9 L (6.3-8.2) g/dL Albumin 1.9 L 2.1 L (3.5-5.0) g/dL Assessment and Plan Assessment: 1. Acute on chronic kidney disease requiring hemodialysis 2. Metabolic acidosis 3. Sepsis 4. Small bowel obstruction with ischemic bowel status post exploratory lap and segmental bowel resection 5. Acute blood loss anemia status post 2 units of blood transfusion Plan: Plan for bedside temporary femoral HD catheter placement this afternoon. Hemodialysis per recommendations from nephrology. Please have ultrasound and equipment to bedside. Thank you for this consultation. The impression and plan of care has been dictated as directed. I performed a history and examination of this patient, discussed the same with the dictator. I agree with the dictator's note ,documented as a scribe. Any additional findings or plans will be noted.
[2022-07-04 13:13] LABS: Magnesium 1.6 mg/dL (1.6-2.3); Potassium 4.6 mmol/L (3.5-5.1)
[2022-07-04 13:19] LABS: Anisocytosis Slight; HCT 33.9 % (34.0-46.0); HGB 11.2 gm/dL (11.4-16.0); MCHC 33.1 g/dL (31.0-37.0); MCV 93.7 fL (80.0-100.0); Mean Platelet Volume 10.2; Platelet Count 112 k/uL (150-450); RBC 3.62 m/uL (3.80-5.40); RDW 17.5 % (11.5-15.5)
[2022-07-04] MEDS: MAGNESIUM SULFATE-D5W PMX 1 GM in DEXTROSE/WATER 1 100ML.BAG IVPB SCH ×2 (14:49→15:44)
[2022-07-04] MEDS ORDERED: CALCIUM GLUCONATE IN NACL 2 GM in SALINE 1 100ML.BAG IVPB ONE (15:00)
[2022-07-04 15:01] LABS: Band Neutrophils % 23 %; Lymphocytes # (M) 1.04 k/uL (1.0-4.8); Metamyelocytes # (M) 0.21 k/uL (0); Metamyelocytes % 4 %; Monocytes # (M) 0.21 k/uL (0-1.0); Myelocytes # (M) 0.05 k/uL (0); Myelocytes % 1 %; Neutrophils % (M) 50 %; Nucleated Red Blood Cells 7 /100 WBC (0-0); Total Cells Counted 200; WBC 5.2 k/uL (3.8-10.6)
[2022-07-04 15:03] LABS: Toxic Vacuolation Present
[2022-07-04 15:04] LABS: Crenated RBC Present; Polychromasia Present
[2022-07-04 17:23] LABS: Glucose,Whole Blood 151 mg/dL (70-110)
[2022-07-04] MEDS: NOREPINEPHRINE 32 MG in SODIUM CHLORIDE 0.9% 218 ML IV SCH (18:47)
[2022-07-04] MEDS ORDERED: HEPARIN SODIUM 1,000 UN/ML (10ML VL) IVP ONE (19:00)
--- NOTE | 2022-07-04 19:01 | P.PCN ---
Date of Procedure: 07/04/22 Description of Procedure: Surgeon: Gavin Mota DO Preoperative Diagnosis: Acute Renal Failure Postoperative Diagnosis: Same Procedure: Ultrasound guided left common femoral veins temporary dialysis catheter placement. Anesthesia: local EBL: minimal Complications: none Indication for procedure: 81-year-old female with acute renal failure after exploratory laparotomy is in need of hemodialysis. Operative narrative: After written informed consent was obtained and all risks, benefits, co mpetitions were described the procedure was performed at bedside. Utilizing ultrasound the left common femoral vein was visualized and shown to be patent without any thrombus. Utilizing a multipurpose needle the left common femoral vein was accessed. Dark nonpulsatile blood flow was visualized. Guidewire was placed and needle was removed. Serial dilation was then performed and a 16 cm Mahurkar dialysis catheter was then guided over the guidewire. Guidewire was then removed and ports were assessed for patency. All ports were easily flushed and hep-locked. The catheter was then sutured in place with nylon suture. The area was then cleansed and dressings were placed. Patient tolerated procedure well.
[2022-07-04] MEDS: ALPRAZolam 0.5 MG TAB PO SCH (19:56)
[2022-07-04 23:46] LABS: Glucose,Whole Blood 90 mg/dL (70-110)
[2022-07-05] MEDS: IPRATROPIUM-ALBUTEROL 3 ML NEB INHALATION SCH ×6 (00:13→20:36)
[2022-07-05 02:44] LABS: Glucose,Whole Blood 67 mg/dL (70-110)
[2022-07-05] MEDS: DEXTROSE 50% SYRINGE 50 ML IVP PRN ×3 (02:52→18:22)
[2022-07-05] MEDS ORDERED: PIPERACILLIN-TAZOBACTAM 3.375 GM in SODIUM CHLORIDE 0.9% 100 ML IVPB SCH (03:00)
[2022-07-05] MEDS: INSULIN ASPART (NovoLOG) 100 UNIT/ML VIAL SQ SCH ×4 (03:07→18:16)
[2022-07-05 03:18] LABS: Glucose,Whole Blood 179 mg/dL (70-110)
[2022-07-05] MEDS: DEXTROSE 5% IN WATER 1,000 ML with SODIUM BICARB (1 MEQ/ML) 150 ML IV SCH (03:32)
[2022-07-05] MEDS: metroNIDAZOLE-NS PMX 500 MG in SALINE 1 100ML.BAG IVPB SCH ×3 (03:35→18:15)
[2022-07-05 05:21] LABS: Albumin 1.7 g/dL (3.5-5.0); Potassium 4.4 mmol/L (3.5-5.1); Total Bilirubin 1.1 mg/dL (0.2-1.3); Total Protein 3.3 g/dL (6.3-8.2)
[2022-07-05 05:36] LABS: Calcium 5.8 mg/dL (8.4-10.2)
[2022-07-05] MEDS: HEPARIN SODIUM,PORCINE/PF 5,000 UNIT/0.5 ML SYRINGE SQ SCH ×2 (05:46→18:15)
[2022-07-05] MEDS: LEVOTHYROXINE 75 MCG TAB PO SCH (05:47)
[2022-07-05 05:57] LABS: ABG Base Excess 1.5 mmol/L; ABG HCO3 26 mmol/L (21-25); ABG Oxygen Saturation 97.2 % (94-97); ABG PCO2 39 mmHg (35-45); ABG PH 7.43 (7.35-7.45); ABG PO2 99 mmHg (83-108); ABG TCO2 27 mmol/L (19-24); Allen Test Performed? Yes
[2022-07-05 05:57] LABS: Anisocytosis Slight; HCT 33.5 % (34.0-46.0); HGB 11.2 gm/dL (11.4-16.0); MCH 30.7 pg (25.0-35.0); MCHC 33.3 g/dL (31.0-37.0); MCV 92.2 fL (80.0-100.0); Mean Platelet Volume 11.1; RBC 3.64 m/uL (3.80-5.40); RDW 18.2 % (11.5-15.5)
[2022-07-05 06:04] LABS: Glucose,Whole Blood 114 mg/dL (70-110)
[2022-07-05 07:28] LABS: Calcium 5.7 mg/dL (8.4-10.2)
[2022-07-05 07:39] LABS: Band Neutrophils % 13 %; Metamyelocytes # (M) 0.18 k/uL (0); Metamyelocytes % 2 %; Monocytes # (M) 0.18 k/uL (0-1.0); Myelocytes # (M) 0.09 k/uL (0); Myelocytes % 1 %; Neutrophils % (M) 73 %; Nucleated Red Blood Cells 7 /100 WBC (0-0); Total Cells Counted 200
[2022-07-05 07:40] LABS: Platelet Count 78 k/uL (150-450)
[2022-07-05 07:41] LABS: Crenated RBC Present; Poikilocytosis (M) Present
--- NOTE | 2022-07-05 08:08 | XR ---
EXAMINATION TYPE: XR chest 1V portable DATE OF EXAM: 07/05/2022 Comparison: 07/04/2022 Clinical History: 81-year-old female Tube placement Findings: ET tube tip just below the level of the medial clavicular heads, satisfactory. NG tube courses below the diaphragm. Patient rotated slightly towards the left altering the normal cardiac mediastinal cont ours. Heart normal size. There is some hazy left basilar density and some blunting of the costophreni c angle. Mild interstitial prominence is similar. Impression: Suspect a small left effusion with adjacent left basilar atelectasis and/or consolidation, similar to prior. Background mild interstitial densities are similar as well.
[2022-07-05] MEDS: PANTOPRAZOLE 40 MG/10 ML VIAL IVP SCH (09:16)
[2022-07-05] MEDS: CHLORHEXIDINE GLUCONATE 15 ML CUP MUCOUS MEM SCH ×2 (09:16→20:13)
[2022-07-05] MEDS: MORPHINE SULFATE 4 MG/ML SYRINGE IV PRN ×3 (09:52→22:49)
[2022-07-05] MEDS: CITALOPRAM HYDROBROMIDE 20 MG TAB PO SCH (09:56)
[2022-07-05] MEDS: TAMSULOSIN 0.4 MG CAP.ER.24H PO SCH (09:56)
[2022-07-05] MEDS: FERROUS SULFATE 325 MG TAB PO SCH (09:56)
[2022-07-05] MEDS: CYANOCOBALAMIN 500 MCG TAB PO SCH (09:56)
[2022-07-05] MEDS: CHOLECALCIFEROL 10 MCG (400 IU) TABLET PO SCH (09:56)
[2022-07-05] MEDS: allopurinoL 100 MG TAB PO SCH (09:56)
[2022-07-05] MEDS ORDERED: SODIUM CHLORIDE 0.9% 500 ML 500 ML IV ONE (09:58)
--- NOTE | 2022-07-05 10:00 | P.PN ---
Subjective Progress Note Date: 07/05/22 Principal diagnosis: Acute kidney injury requiring hemodialysis Patient was seen and examined today in the ICU. She remains sedated and intubated on mechanical ventilation. Patient scheduled to return to the operating room with general surgery. Temporary hemodialysis catheter placed in left femoral vein yesterday. She did undergo dialysis without any complications. Objective - Vital Signs Vital signs: Vital Signs Temp 98.2 F 07/05/22 02:34 Pulse 117 H 07/05/22 08:10 Resp 26 H 07/05/22 07:00 BP 153/61 07/05/22 02:34 Pulse Ox 100 07/05/22 07:00 FiO2 40 07/05/22 08:09 Intake & Output 07/04/22 07/05/22 07/05/22 18:59 06:59 18:59 Intake Total 3156.826 2089.179 125 Output Total 395 360 0 Balance 2761.826 1729.179 125 Weight 59 kg 63 kg Intake: IV 1625 1500 125 Dextrose 5% in Water 1, 1625 1500 125 000 ml @ 125 mls/hr IV . Q9H12M SHARMIN with Sodium Bicarb (1 Meq/ml) 150 ml Rx#:[id number] Intake, IV Titration 1531.826 89.179 Amount Calcium Gluconate in NaCl 100 2 gm In Saline 1 100ml. bag @ 100 mls/hr IVPB ONCE ONE Rx#:[id number] Magnesium Sulfate-D5w Pmx 200 1 gm In Dextrose/Water 1 100ml.bag @ 100 mls/hr IVPB Q1H SHARMIN Rx#: [id number] Norepinephrine 32 mg In 45.829 50.367 Sodium Chloride 0.9% 218 ml @ 0.05 MCG/KG/MIN 1. 223 mls/hr IV .Q24H SHARMIN Rx#:[id number] Sodium Chloride 0.9% 1, 1000 000 ml @ 999 mls/hr IV . Q1H1M ONE Rx#:[id number] metroNIDAZOLE-NS PMX 500 100 mg In Saline 1 100ml.bag @ 100 mls/hr IVPB Q8H SHARMIN Rx#:[id number] propofoL 1,000 mg In 85.997 38.812 Empty Bag 1 bag @ 15 MCG/ KG/MIN 4.695 mls/hr IV . [id number] SHARMIN Rx#:[id number] Hemodialysis 500 Output: Gastric Drainage 250 200 Drainage 100 150 Medial Abdomen 100 150 Urine 45 10 0 Hemodialysis 0 Other: Voiding Method Indwelling Catheter Indwelling Catheter ABP, PAP, CO, CI - Last Documented Arterial Blood Pressure 128/52 - Exam General appearance: The patient sedated and intubated on mechanical ventilation. HET: Head is normocephalic and atraumatic. Neck: Supple without lymphadenopathy. Trachea midline. Heart: Regular. Lungs: Equal expansion, mechanical ventilation. Abdomen: Soft, nondistended, wound VAC in place with good suction. Extremities: Normal skin color and turgor. Right groin central line. Left groin with femoral temporary HD catheter in place, no bleeding, no hematoma noted. Neurological: Sedated and intubated. - Labs CBC & Chem 7: 07/05/22 04:59 07/05/22 04:59 Labs: Abnormal Lab Results - Last 24 Hours (Table) 07/04/22 07/04/22 07/04/22 Range/Units 09:00 11:14 12:45 RBC (3.80-5.40) m/uL Hgb (11.4-16.0) gm/dL Hct (34.0-46.0) % RDW (11.5-15.5) % Plt Count (150-450) k/uL Lymphocytes # (Manual) (1.0-4.8) k/uL Metamyelocytes # (Man) (0) k/uL Myelocytes # (Manual) (0) k/uL Nucleated RBCs (0-0) /100 WBC ABG HCO3 (21-25) mmol/L ABG Total CO2 (19-24) mmol/L ABG O2 Saturation (94-97) % Sodium (137-145) mmol/L Chloride (98-107) mmol/L Carbon Dioxide (22-30) mmol/L BUN (7-17) mg/dL Creatinine (0.52-1.04) mg/dL Glucose (74-99) mg/dL POC Glucose (mg/dL) 187 H (70-110) mg/dL Plasma Lactic Acid Carlos 4.7 H* 4.3 H* (0.7-2.0) mmol/L Calcium (8.4-10.2) mg/dL AST (14-36) U/L ALT (4-34) U/L Total Protein (6.3-8.2) g/dL Albumin (3.5-5.0) g/dL 07/04/22 07/04/22 07/04/22 Range/Units 12:45 12:45 17:22 RBC 3.62 L (3.80-5.40) m/uL Hgb 11.2 L (11.4-16.0) gm/dL Hct 33.9 L (34.0-46.0) % RDW 17.5 H (11.5-15.5) % Plt Count 112 L (150-450) k/uL Lymphocytes # (Manual) (1.0-4.8) k/uL Metamyelocytes # (Man) 0.21 H (0) k/uL Myelocytes # (Manual) 0.05 H (0) k/uL Nucleated RBCs 7 H (0-0) /100 WBC ABG HCO3 (21-25) mmol/L ABG Total CO2 (19-24) mmol/L ABG O2 Saturation (94-97) % Sodium (137-145) mmol/L Chloride 110 H (98-107) mmol/L Carbon Dioxide 18 L (22-30) mmol/L BUN 84 H (7-17) mg/dL Creatinine 3.93 H (0.52-1.04) mg/dL Glucose 183 H (74-99) mg/dL POC Glucose (mg/dL) 151 H (70-110) mg/dL Plasma Lactic Acid Carlos (0.7-2.0) mmol/L Calcium 5.7 L* (8.4-10.2) mg/dL AST (14-36) U/L ALT (4-34) U/L Total Protein (6.3-8.2) g/dL Albumin (3.5-5.0) g/dL 07/05/22 07/05/22 07/05/22 Range/Units 02:42 03:15 04:59 RBC 3.64 L (3.80-5.40) m/uL Hgb 11.2 L (11.4-16.0) gm/dL Hct 33.5 L (34.0-46.0) % RDW 18.2 H (11.5-15.5) % Plt Count 78 L (150-450) k/uL Lymphocytes # (Manual) 0.90 L (1.0-4.8) k/uL Metamyelocytes # (Man) 0.18 H (0) k/uL Myelocytes # (Manual) 0.09 H (0) k/uL Nucleated RBCs 7 H (0-0) /100 WBC ABG HCO3 (21-25) mmol/L ABG Total CO2 (19-24) mmol/L ABG O2 Saturation (94-97) % Sodium (137-145) mmol/L Chloride (98-107) mmol/L Carbon Dioxide (22-30) mmol/L BUN (7-17) mg/dL Creatinine (0.52-1.04) mg/dL Glucose (74-99) mg/dL POC Glucose (mg/dL) 67 L 179 H (70-110) mg/dL Plasma Lactic Acid Carlos (0.7-2.0) mmol/L Calcium (8.4-10.2) mg/dL AST (14-36) U/L ALT (4-34) U/L Total Protein (6.3-8.2) g/dL Albumin (3.5-5.0) g/dL 07/05/22 07/05/22 07/05/22 Range/Units 04:59 05:54 06:02 RBC (3.80-5.40) m/uL Hgb (11.4-16.0) gm/dL Hct (34.0-46.0) % RDW (11.5-15.5) % Plt Count (150-450) k/uL Lymphocytes # (Manual) (1.0-4.8) k/uL Metamyelocytes # (Man) (0) k/uL Myelocytes # (Manual) (0) k/uL Nucleated RBCs (0-0) /100 WBC ABG HCO3 26 H (21-25) mmol/L ABG Total CO2 27 H (19-24) mmol/L ABG O2 Saturation 97.2 H (94-97) % Sodium 134 L (137-145) mmol/L Chloride (98-107) mmol/L Carbon Dioxide (22-30) mmol/L BUN 58 H (7-17) mg/dL Creatinine 3.03 H (0.52-1.04) mg/dL Glucose 142 H (74-99) mg/dL POC Glucose (mg/dL) 114 H (70-110) mg/dL Plasma Lactic Acid Carlos (0.7-2.0) mmol/L Calcium 5.8 L* (8.4-10.2) mg/dL AST 419 H (14-36) U/L ALT 393 H (4-34) U/L Total Protein 3.3 L (6.3-8.2) g/dL Albumin 1.7 L (3.5-5.0) g/dL Microbiology - Last 24 Hours (Table) 07/03/22 22:37 Gram Stain - Preliminary Sputum Sputum Culture - Preliminary Assessment and Plan Assessment: 1. Acute on chronic kidney disease requiring hemodialysis status post temporary HD catheter placement 2. Metabolic acidosis 3. Sepsis 4. Small bowel obstruction with ischemic bowel status post exploratory lap and segmental bowel resection 5. Acute blood loss anemia status post 2 units of blood transfusion Plan: Continue with recommendations from nephrology for hemodialysis. Will be on standby if further needed please return to us. Thank you for this consultation. The impression and plan of care has been dictated as directed. I performed a history and examination of this patient, discussed the same with the dictator. I agree with the dictator's note ,documented as a scribe. Any additional findings or plans will be noted.
--- NOTE | 2022-07-05 10:21 | P.PN ---
Subjective Progress Note Date: 07/05/22 Pt is tachycardic, levophed running at .18. Undergoing iHD. Plans for repeat ex lap today. General: intubated, sedated HEENT: normocephalic, atraumatic, no tracheal deviation Respiratory: symmetric chest rise, no cyanosis, ventilator dependent CVS: perfusing all extremities, no distal gangrene, no pitting edema GI: soft, ND : no SPT, no CVAT, mejia is present Neuro: sedated Hospital course: 81-year-old female with history of IBS, hypothyroidism, depression, gout, anxiety presenting with acute abdominal pain. In the ED, temperature 97.5, pulse 85, respiratory rate 19, blood pressure 93/64, saturating at 99% on room air. WBC 10.6, sodium 134, potassium 5.1, bicarb 15, creatinine 2.07, glucose 222, AST 48, ALT 39, troponin 0.012. 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 EKG showed normal sinus rhythm, right bundle branch block. Chest x- ray showed no acute process. Patient admitted for abdominal pain, nausea vomiting, possible ileus. Surgery consulted. In the ER, patient had a syncopal episode. A,, patient clearly had signs of severe sepsis, lactate was trending up, severe leukocytosis with bandemia. Likely source is abdomen. On broad- spectrum antibiotics, also had worsening acute kidney injury. For acidosis, started on IV sodium bicarbonate. Patient continued to worsen, and septic and hypovolemic shock. She was taken emergently for surgery. She had exploratory laparoscopy with segmental small bowel resection, was noted to have bowel ischemia. Currently she is intubated and sedated in the medical ICU. She had temp dialysis catheter placed and was started on iHD. Assessment: Septic shock Bowel ischemia Ischemic hepatitis Mechanical ventilation Acute kidney injury on chronic kidney disease, now requiring dialysis Lactic acidosis High anion gap metabolic acidosis Possible cirrhosis Right bundle branch block Plan: Today, patient is afebrile, 128/52, heart rate 115, 100% on mechanical ventilation with FiO2 40% CBC demonstrate anemia down to 11.2, thrombocytopenia to 78, thrombocytopenia seems to be worsening Basic metabolic panel shows hyponatremia to 134, BUN is 58, creatinine is 3.03, calcium is 5.8 Liver function tests show AST of 419, ALT of 393, total protein 3.3, albumin of 1.7 Ordered CBC, basic metabolic panel, magnesium, liver function tests for tomorrow Continue levophed, monitor blood pressure for titration with goal map greater than 65 Plan is to proceed to exploratory laparotomy today with general surgery Will switch zosyn to meropenem, renally dosed, given thrombocytopenia Continue dosing flagyl 500mg q8h Continue morphine 4mg q4hPRN for pain Pt is Full Code DVT PPx with heparin BID Objective - Vital Signs Vital signs: Vital Signs Temp 98.2 F 07/05/22 02:34 Pulse 117 H 07/05/22 08:10 Resp 26 H 07/05/22 07:00 BP 153/61 07/05/22 02:34 Pulse Ox 100 07/05/22 07:00 FiO2 40 07/05/22 08:09 Intake & Output 07/04/22 07/05/22 07/05/22 18:59 06:59 18:59 Intake Total 3156.826 2089.179 125 Output Total 395 360 0 Balance 2761.826 1729.179 125 Weight 59 kg 63 kg Intake: IV 1625 1500 125 Dextrose 5% in Water 1, 1625 1500 125 000 ml @ 125 mls/hr IV . Q9H12M [facility] with Sodium Bicarb (1 Meq/ml) 150 ml Rx#:[id number] Intake, IV Titration 1531.826 89.179 Amount Calcium Gluconate in NaCl 100 2 gm In Saline 1 100ml. bag @ 100 mls/hr IVPB ONCE ONE Rx#:[id number] Magnesium Sulfate-D5w Pmx 200 1 gm In Dextrose/Water 1 100ml.bag @ 100 mls/hr IVPB Q1H [facility] Rx#: [id number] Norepinephrine 32 mg In 45.829 50.367 Sodium Chloride 0.9% 218 ml @ 0.05 MCG/KG/MIN 1. 223 mls/hr IV .Q24H [facility] Rx#:[id number] Sodium Chloride 0.9% 1, 1000 000 ml @ 999 mls/hr IV . Q1H1M ONE Rx#:[id number] metroNIDAZOLE-NS PMX 500 100 mg In Saline 1 100ml.bag @ 100 mls/hr IVPB Q8H [facility] Rx#:[id number] propofoL 1,000 mg In 85.997 38.812 Empty Bag 1 bag @ 15 MCG/ KG/MIN 4.695 mls/hr IV . [id number] [facility] Rx#:[id number] Hemodialysis 500 Output: Gastric Drainage 250 200 Drainage 100 150 Medial Abdomen 100 150 Urine 45 10 0 Hemodialysis 0 Other: Voiding Method Indwelling Catheter Indwelling Catheter ABP, PAP, CO, CI - Last Documented Arterial Blood Pressure 128/52 - Labs CBC & Chem 7: 07/05/22 04:59 07/05/22 04:59 Labs: Abnormal Lab Results - Last 24 Hours (Table) 07/04/22 07/04/22 07/04/22 Range/Units 11:14 12:45 12:45 RBC 3.62 L (3.80-5.40) m/uL Hgb 11.2 L (11.4-16.0) gm/dL Hct 33.9 L (34.0-46.0) % RDW 17.5 H (11.5-15.5) % Plt Count 112 L (150-450) k/uL Lymphocytes # (Manual) (1.0-4.8) k/uL Metamyelocytes # (Man) 0.21 H (0) k/uL Myelocytes # (Manual) 0.05 H (0) k/uL Nucleated RBCs 7 H (0-0) /100 WBC ABG HCO3 (21-25) mmol/L ABG Total CO2 (19-24) mmol/L ABG O2 Saturation (94-97) % Sodium (137-145) mmol/L Chloride (98-107) mmol/L Carbon Dioxide (22-30) mmol/L BUN (7-17) mg/dL Creatinine (0.52-1.04) mg/dL Glucose (74-99) mg/dL POC Glucose (mg/dL) 187 H (70-110) mg/dL Plasma Lactic Acid Carlos 4.3 H* (0.7-2.0) mmol/L Calcium (8.4-10.2) mg/dL AST (14-36) U/L ALT (4-34) U/L Total Protein (6.3-8.2) g/dL Albumin (3.5-5.0) g/dL 07/04/22 07/04/2223 Range/Units 12:45 17:22 02:42 RBC (3.80-5.40) m/uL Hgb (11.4-16.0) gm/dL Hct (34.0-46.0) % RDW (11.5-15.5) % Plt Count (150-450) k/uL Lymphocytes # (Manual) (1.0-4.8) k/uL Metamyelocytes # (Man) (0) k/uL Myelocytes # (Manual) (0) k/uL Nucleated RBCs (0-0) /100 WBC ABG HCO3 (21-25) mmol/L ABG Total CO2 (19-24) mmol/L ABG O2 Saturation (94-97) % Sodium (137-145) mmol/L Chloride 110 H (98-107) mmol/L Carbon Dioxide 18 L (22-30) mmol/L BUN 84 H (7-17) mg/dL Creatinine 3.93 H (0.52-1.04) mg/dL Glucose 183 H (74-99) mg/dL POC Glucose (mg/dL) 151 H 67 L (70-110) mg/dL Plasma Lactic Acid Carlos (0.7-2.0) mmol/L Calcium 5.7 L* (8.4-10.2) mg/dL AST (14-36) U/L ALT (4-34) U/L Total Protein (6.3-8.2) g/dL Albumin (3.5-5.0) g/dL 07/05/22 07/05/22 07/05/22 Range/Units 03:15 04:59 04:59 RBC 3.64 L (3.80-5.40) m/uL Hgb 11.2 L (11.4-16.0) gm/dL Hct 33.5 L (34.0-46.0) % RDW 18.2 H (11.5-15.5) % Plt Count 78 L (150-450) k/uL Lymphocytes # (Manual) 0.90 L (1.0-4.8) k/uL Metamyelocytes # (Man) 0.18 H (0) k/uL Myelocytes # (Manual) 0.09 H (0) k/uL Nucleated RBCs 7 H (0-0) /100 WBC ABG HCO3 (21-25) mmol/L ABG Total CO2 (19-24) mmol/L ABG O2 Saturation (94-97) % Sodium 134 L (137-145) mmol/L Chloride (98-107) mmol/L Carbon Dioxide (22-30) mmol/L BUN 58 H (7-17) mg/dL Creatinine 3.03 H (0.52-1.04) mg/dL Glucose 142 H (74-99) mg/dL POC Glucose (mg/dL) 179 H (70-110) mg/dL Plasma Lactic Acid Carlos (0.7-2.0) mmol/L Calcium 5.8 L* (8.4-10.2) mg/dL AST 419 H (14-36) U/L ALT 393 H (4-34) U/L Total Protein 3.3 L (6.3-8.2) g/dL Albumin 1.7 L (3.5-5.0) g/dL 07/05/22 07/05/22 Range/Units 05:54 06:02 RBC (3.80-5.40) m/uL Hgb (11.4-16.0) gm/dL Hct (34.0-46.0) % RDW (11.5-15.5) % Plt Count (150-450) k/uL Lymphocytes # (Manual) (1.0-4.8) k/uL Metamyelocytes # (Man) (0) k/uL Myelocytes # (Manual) (0) k/uL Nucleated RBCs (0-0) /100 WBC ABG HCO3 26 H (21-25) mmol/L ABG Total CO2 27 H (19-24) mmol/L ABG O2 Saturation 97.2 H (94-97) % Sodium (137-145) mmol/L Chloride (98-107) mmol/L Carbon Dioxide (22-30) mmol/L BUN (7-17) mg/dL Creatinine (0.52-1.04) mg/dL Glucose (74-99) mg/dL POC Glucose (mg/dL) 114 H (70-110) mg/dL Plasma Lactic Acid Carlos (0.7-2.0) mmol/L Calcium (8.4-10.2) mg/dL AST (14-36) U/L ALT (4-34) U/L Total Protein (6.3-8.2) g/dL Albumin (3.5-5.0) g/dL Microbiology - Last 24 Hours (Table) 07/03/22 22:37 Gram Stain - Preliminary Sputum Sputum Culture - Preliminary
[2022-07-05] MEDS ORDERED: CALCIUM GLUCONATE IN NACL 2 GM in SALINE 1 100ML.BAG IVPB ONE ×2 (10:30→12:02)
--- NOTE | 2022-07-05 10:43 | CA ---
Transthoracic Echo Report Name: Deanne Savage Age: 81 Gender: F : 1940 Exam Date: 07/04/2022 14:03 Exam Location: [facility] Ht (in): 60 Wt (lb): 130 Ordering Physician: Johnathan Stock MD Attending/Referring Phys: [employer] Rae Salcido RDCS Procedure CPT: Indications: Syncope Cardiac Hx: Technical Quality: Technically difficult study Contrast 1: Lumason Total Dose (mL): 4 Contrast 2: Total Dose (mL): MEASUREMENTS (Male / Female) Normal Values 2D ECHO LV Diastolic Diameter PLAX 2.6 cm 4.2 - 5.9 / 3.9 - 5.3 cm LV Systolic Diameter PLAX 2.2 cm IVS Diastolic Thickness 1.1 cm 0.6 - 1.0 / 0.6 - 0.9 cm LVPW Diastolic Thickness 1.1 cm 0.6 - 1.0 / 0.6 - 0.9 cm LV Relative Wall Thickness 0.8 RV Internal Dim ED PLAX 3.1 cm LA Volume 34.8 cm??? 18 - 58 / 22 - 52 cm??? DOPPLER AV Peak Velocity 122.2 cm/s AV Peak Gradient 6.0 mmHg LVOT Peak Velocity 77.6 cm/s LVOT Peak Gradient 2.4 mmHg MV E' Velocity 6.0 cm/s FINDINGS Left Ventricle Left ventricular cavity size normal. Mildly increased left ventricular wall thickness. Abnormal septal motion consistent with an intraventricular conduction defect. Left ventricular ejection fraction is estimated at 55%. Echo contrast was used to enhance the quality of images.. Right Ventricle Normal right ventricular size and function. Right ventricular systolic pressure within normal limits. Right Atrium Normal right atrial size. Left Atrium Normal left atrial size. Mitral Valve Structurally normal mitral valve. No mitral stenosis or prolapse. Trace MR. Aortic Valve No aortic valve stenosis or regurgitation. Tricuspid Valve Mild tricuspid regurgitation. Pulmonic Valve Trace pulmonic regurgitation. Pericardium No pericardial effusion. Aorta Normal size aortic root and proximal ascending aorta. CONCLUSIONS Technically difficult study. Overall left frontal systolic function is normal. There is minimal mitral and tricuspid regurgitation. No pericardial effusion. Overall Doppler study is suboptimal Previewed by: Dr. Kelly Gordon MD (Electronically Signed) Final Date: 05 Jul 2022 10:42
[2022-07-05] MEDS: MEROPENEM 500 MG in SODIUM CHLORIDE 0.9% 100 ML IVPB SCH (10:47)
--- NOTE | 2022-07-05 11:05 | P.PN ---
Subjective Patient is seen in follow-up for acute kidney injury on chronic kidney disease. Oliguric. Underwent small bowel resection 07/03/2022. Scheduled for another surgery today. Acidosis improved. Bicarb drip stopped. Intubated. Tolerated hemodialysis well yesterday. This morning she went into SVT so treatment was stopped. Vital signs - afebrile. Tachycardic. On vasopressor support. General: Resting in bed. HEENT: Intubated. NG tube noted. LUNGS: Scattered rhonchi. HEART: Tachycardic. ABDOMEN: Wound VAC noted. EXTREMITITES: No edema. Objective - Vital Signs Vital signs: Vital Signs Temp 99.3 F 07/05/22 08:00 Pulse 125 H 07/05/22 10:00 Resp 26 H 07/05/22 10:00 BP 153/61 07/05/22 02:34 Pulse Ox 94 L 07/05/22 10:00 FiO2 40 07/05/22 08:09 Intake & Output 07/04/22 07/05/22 07/05/22 18:59 06:59 18:59 Intake Total 3156.826 2089.179 266.87 Output Total 395 360 335 Balance 2761.826 1729.179 -68.13 Weight 59 kg 63 kg Intake: IV 1625 1500 250 Dextrose 5% in Water 1, 1625 1500 250 000 ml @ 125 mls/hr IV . Q9H12M [facility] with Sodium Bicarb (1 Meq/ml) 150 ml Rx#:[id number] Intake, IV Titration 1531.826 89.179 16.87 Amount Calcium Gluconate in NaCl 100 2 gm In Saline 1 100ml. bag @ 100 mls/hr IVPB ONCE ONE Rx#:[id number] Magnesium Sulfate-D5w Pmx 200 1 gm In Dextrose/Water 1 100ml.bag @ 100 mls/hr IVPB Q1H [facility] Rx#: [id number] Norepinephrine 32 mg In 45.829 50.367 16.87 Sodium Chloride 0.9% 218 ml @ 0.05 MCG/KG/MIN 1. 223 mls/hr IV .Q24H [facility] Rx#:[id number] Sodium Chloride 0.9% 1, 1000 000 ml @ 999 mls/hr IV . Q1H1M ONE Rx#:[id number] metroNIDAZOLE-NS PMX 500 100 mg In Saline 1 100ml.bag @ 100 mls/hr IVPB Q8H [facility] Rx#:[id number] propofoL 1,000 mg In 85.997 38.812 Empty Bag 1 bag @ 15 MCG/ KG/MIN 4.695 mls/hr IV . [id number] [facility] Rx#:[id number] Hemodialysis 500 Output: Gastric Drainage 250 200 200 Drainage 100 150 125 Medial Abdomen 100 150 125 Urine 45 10 10 Hemodialysis 0 Other: Voiding Method Indwelling Catheter Indwelling Catheter Indwelling Catheter ABP, PAP, CO, CI - Last Documented Arterial Blood Pressure 111/53 - Labs CBC & Chem 7: 07/05/22 04:59 07/05/22 04:59 Labs: Abnormal Lab Results - Last 24 Hours (Table) 07/04/22 07/04/22 07/04/22 Range/Units 11:14 12:45 12:45 RBC 3.62 L (3.80-5.40) m/uL Hgb 11.2 L (11.4-16.0) gm/dL Hct 33.9 L (34.0-46.0) % RDW 17.5 H (11.5-15.5) % Plt Count 112 L (150-450) k/uL Lymphocytes # (Manual) (1.0-4.8) k/uL Metamyelocytes # (Man) 0.21 H (0) k/uL Myelocytes # (Manual) 0.05 H (0) k/uL Nucleated RBCs 7 H (0-0) /100 WBC ABG HCO3 (21-25) mmol/L ABG Total CO2 (19-24) mmol/L ABG O2 Saturation (94-97) % Sodium (137-145) mmol/L Chloride (98-107) mmol/L Carbon Dioxide (22-30) mmol/L BUN (7-17) mg/dL Creatinine (0.52-1.04) mg/dL Glucose (74-99) mg/dL POC Glucose (mg/dL) 187 H (70-110) mg/dL Plasma Lactic Acid Carlos 4.3 H* (0.7-2.0) mmol/L Calcium (8.4-10.2) mg/dL AST (14-36) U/L ALT (4-34) U/L Total Protein (6.3-8.2) g/dL Albumin (3.5-5.0) g/dL 07/04/22 07/04/22 07/05/22 Range/Units 12:45 17:22 02:42 RBC (3.80-5.40) m/uL Hgb (11.4-16.0) gm/dL Hct (34.0-46.0) % RDW (11.5-15.5) % Plt Count (150-450) k/uL Lymphocytes # (Manual) (1.0-4.8) k/uL Metamyelocytes # (Man) (0) k/uL Myelocytes # (Manual) (0) k/uL Nucleated RBCs (0-0) /100 WBC ABG HCO3 (21-25) mmol/L ABG Total CO2 (19-24) mmol/L ABG O2 Saturation (94-97) % Sodium (137-145) mmol/L Chloride 110 H (98-107) mmol/L Carbon Dioxide 18 L (22-30) mmol/L BUN 84 H (7-17) mg/dL Creatinine 3.93 H (0.52-1.04) mg/dL Glucose 183 H (74-99) mg/dL POC Glucose (mg/dL) 151 H 67 L (70-110) mg/dL Plasma Lactic Acid Carlos (0.7-2.0) mmol/L Calcium 5.7 L* (8.4-10.2) mg/dL AST (14-36) U/L ALT (4-34) U/L Total Protein (6.3-8.2) g/dL Albumin (3.5-5.0) g/dL 07/05/22 07/05/22 07/05/22 Range/Units 03:15 04:59 04:59 RBC 3.64 L (3.80-5.40) m/uL Hgb 11.2 L (11.4-16.0) gm/dL Hct 33.5 L (34.0-46.0) % RDW 18.2 H (11.5-15.5) % Plt Count 78 L (150-450) k/uL Lymphocytes # (Manual) 0.90 L (1.0-4.8) k/uL Metamyelocytes # (Man) 0.18 H (0) k/uL Myelocytes # (Manual) 0.09 H (0) k/uL Nucleated RBCs 7 H (0-0) /100 WBC ABG HCO3 (21-25) mmol/L ABG Total CO2 (19-24) mmol/L ABG O2 Saturation (94-97) % Sodium 134 L (137-145) mmol/L Chloride (98-107) mmol/L Carbon Dioxide (22-30) mmol/L BUN 58 H (7-17) mg/dL Creatinine 3.03 H (0.52-1.04) mg/dL Glucose 142 H (74-99) mg/dL POC Glucose (mg/dL) 179 H (70-110) mg/dL Plasma Lactic Acid Carlos (0.7-2.0) mmol/L Calcium 5.8 L* (8.4-10.2) mg/dL AST 419 H (14-36) U/L ALT 393 H (4-34) U/L Total Protein 3.3 L (6.3-8.2) g/dL Albumin 1.7 L (3.5-5.0) g/dL 07/05/22 07/05/22 Range/Units 05:54 06:02 RBC (3.80-5.40) m/uL Hgb (11.4-16.0) gm/dL Hct (34.0-46.0) % RDW (11.5-15.5) % Plt Count (150-450) k/uL Lymphocytes # (Manual) (1.0-4.8) k/uL Metamyelocytes # (Man) (0) k/uL Myelocytes # (Manual) (0) k/uL Nucleated RBCs (0-0) /100 WBC ABG HCO3 26 H (21-25) mmol/L ABG Total CO2 27 H (19-24) mmol/L ABG O2 Saturation 97.2 H (94-97) % Sodium (137-145) mmol/L Chloride (98-107) mmol/L Carbon Dioxide (22-30) mmol/L BUN (7-17) mg/dL Creatinine (0.52-1.04) mg/dL Glucose (74-99) mg/dL POC Glucose (mg/dL) 114 H (70-110) mg/dL Plasma Lactic Acid Carlos (0.7-2.0) mmol/L Calcium (8.4-10.2) mg/dL AST (14-36) U/L ALT (4-34) U/L Total Protein (6.3-8.2) g/dL Albumin (3.5-5.0) g/dL Microbiology - Last 24 Hours (Table) 07/03/22 14:35 Blood Culture - Preliminary Blood 07/03/22 14:38 Blood Culture - Preliminary Blood 07/03/22 22:37 Gram Stain - Preliminary Sputum Sputum Culture - Preliminary Assessment and Plan Plan: Assessment: 1. Acute kidney injury secondary to ATN secondary to hypotension/septic shock. Creatinine peaked at 3.93 this admission. Oliguric. No hydronephrosis noted on CAT scan. Started on hemodialysis 07/04/2022. Has a femoral catheter. 2. Chronic kidney disease stage IV with baseline creatinine near 2 secondary to nephrosclerosis. 3. Metabolic acidosis secondary to acute kidney injury and lactic acidosis s/p bicarbonate drip. Improved. 4. Hyperkalemia secondary to acute kidney injury, acidosis. Improved with medical management and HD. 5. Small bowel obstruction with ischemic bowel status post exploratory laparotomy with segmental small bowel resection 07/03/2022. Scheduled for another surgery today. 6. Hypocalcemia secondary to acute kidney injury. Corrected calcium near 7.6. Plan: Normal saline 50 mL an hour for maintenance fluids. Avoid nephrotoxins. Wean FiO2 and vasopressors. Went into SVT during dialysis today. Reassess tomorrow. Replace calcium. Check ionized calcium.
--- NOTE | 2022-07-05 12:12 | P.PN ---
Subjective Progress Note Date: 07/05/22 Principal diagnosis: Postoperative day #2 status post exploratory laparotomy with segmental bowel resection for small bowel obstruction I'm seeing this patient in new consultation today 07/04/2022 for ICU management post exploratory laparotomy and segmental small bowel resection for a small bowel obstruction. Patient is a 81-year-old white female with past medical history significant for irritable bowel syndrome, peptic ulcers with previous anemia and PRBC transfusions, GERD, hiatal hernia, chronic kidney disease stage IV, hypothyroidism, hypertension. Patient presented to the emergency room on July 02 with a chief complaint of abdominal pain, nausea, and vomiting for approximately one day. Patient reportedly had a bowel movement the day prior. A follow-up CT of the abdomen and pelvis without contrast showed fluid-filled prominent small bowel loops within the pelvis that could correlate for ileus. A low-grade small bowel obstruction was felt to be less likely at that time. There was also some ascites, and a small lobular liver. NG tube was originally inserted for gastric decompression, and the patient was observed overnight. The patient's condition progressively worsened, and was taken to surgery yesterday. Patient underwent an exploratory laparotomy with segmental small bowel resection. The abdomen was left open, and a wound VAC was applied. Postoperatively, the patient was left on the mechanical ventilator, and is currently in the intensive care unit. She is synchronous with the ventilator. Initial ventilator settings were assist control, respiratory rate 14, tidal volume 350, FiO2 100%, and a PEEP of 5. Initial chest x-ray showed the en dotracheal tube 2.4 cm from the amanda, NG tube was seen within the stomach, and there was some pulmonary vascular congestion without overt heart failure. Initial ABG on these settings showed a pO2 of 262, pCO2 of 50, pH of 7.12. Respiratory rate was increased to 26, tidal volume was increased to 400, and FiO2 reduced to 40%. A follow-up ABG showed a pO2 of 134, pCO2 of 34, and pH is 7.24. Propofol infusing at 15 mics per kilogram per minute for sedation. Patient was given 3 A of sodium bicarb and started on a sodium bicarb infusion 3 amps in D5W at 125 ML's per hour. There was an acute drop in hemoglobin from 10.8 g/dL preoperatively to 5.5 g/dL postoperatively. Patient is currently receiving 2 units PRBC transfusion. Patient was also fluid resuscitated with a total of 4 L normal saline. Patient's hypotension was refractory to fluid resuscitation, and was subsequently started on a norepinephrine infusion which is currently infusing at 0.12 mics per kilogram per minute through a right IJ double-lumen central line catheter. NG tube has a small amount of brown-green bilious nilton inage. Most recent CBC shows a WBC count of 4.8, hemoglobin 5.5, hematocrit 18.4, platelets 113,000. Most recent BMP postoperatively shows a sodium of 137, potassium 6.7, chloride 115, serum CO2 10, BUN 76, creatinine 4.14, glucose 96. Patient's hyperkalemia was treated with 8 units of insulin, an amp of D50W, 2 g of calcium gluconate, as well as the as the above-mentioned sodium bicarbonate. Patient has a component of acute on chronic kidney injury, and is currently anuric. Patient's lactic was also 6.6, and this will be rechecked. LFTs are mildly elevated. Patient was started on empiric Zosyn. The plan per surgical services, is to take the patient back to the operating room on Monday, once more hemodynamically stable. Shunt was reevaluated today on 07/05/2022, remains in the ICU, intubated and mechanically ventilated. Patient is on assist control rate of 26 tidal volume 400 FiO2 40% PEEP of 5 ABG showed a pO2 of 99 pCO2 39 pH of 7.43, hence no vent changes were made. Patient is on norepinephrine at 0.18 mcg/kg/m propofol at 10 mcg/kg/m she is also on bicarb drip which I have discontinued today, patient received dialysis last night. She is scheduled to have reexploration today and possibly closure of her abdominal incision sometime later today. Hence no plans to hold sedation or assess weaning at this point since the patient is going back to surgery. Chest x-ray showed mostly small left pleural effusion and atelectasis minimal increased interstitial densities. Labs were reviewed her WBC count is 9 hemoglobin 11.2. Platelets are 78,000 basic metabolic profile is normal however her BUN is 58 creatinine 3.03. Her enzymes remain elevated with AST of 419 ALT of 393. Antibiotics reno, patient is on Merrem and she is also on metronidazole. Objective - Vital Signs Vital signs: Vital Signs Temp 99.3 F 07/05/22 08:00 Pulse 121 H 05/16/23 11:35 Resp 24 07/05/22 11:00 BP 153/61 07/05/22 02:34 Pulse Ox 92 L 07/05/22 11:00 FiO2 40 07/05/22 11:36 Intake & Output 07/04/22 07/05/22 07/05/22 18:59 06:59 18:59 Intake Total 3156.826 2089.179 670.574 Output Total 395 360 335 Balance 2761.826 1729.179 335.574 Weight 59 kg 63 kg Intake: IV 1625 1500 250 Dextrose 5% in Water 1, 1625 1500 250 000 ml @ 125 mls/hr IV . Q9H12M SHARMIN with Sodium Bicarb (1 Meq/ml) 150 ml Rx#:[id number] Intake, IV Titration 1531.826 89.179 120.574 Amount Calcium Gluconate in NaCl 100 2 gm In Saline 1 100ml. bag @ 100 mls/hr IVPB ONCE ONE Rx#:[id number] Calcium Gluconate in NaCl 100 2 gm In Saline 1 100ml. bag @ 100 mls/hr IVPB ONCE ONE Rx#:[id number] Magnesium Sulfate-D5w Pmx 200 1 gm In Dextrose/Water 1 100ml.bag @ 100 mls/hr IVPB Q1H [facility] Rx#: [id number] Norepinephrine 32 mg In 45.829 50.367 20.574 Sodium Chloride 0.9% 218 ml @ 0.05 MCG/KG/MIN 1. 223 mls/hr IV .Q24H [facility] Rx#:[id number] Sodium Chloride 0.9% 1, 1000 000 ml @ 999 mls/hr IV . Q1H1M ONE Rx#:[id number] metroNIDAZOLE-NS PMX 500 100 mg In Saline 1 100ml.bag @ 100 mls/hr IVPB Q8H [facility] Rx#:[id number] propofoL 1,000 mg In 85.997 38.812 Empty Bag 1 bag @ 15 MCG/ KG/MIN 4.695 mls/hr IV . [id number] [facility] Rx#:[id number] Hemodialysis 500 300 Output: Gastric Drainage 250 200 200 Drainage 100 150 125 Medial Abdomen 100 150 125 Urine 45 10 10 Hemodialysis 0 0 Other: Voiding Method Indwelling Catheter Indwelling Catheter Indwelling Catheter ABP, PAP, CO, CI - Last Documented Arterial Blood Pressure 126/55 - Exam GENERAL EXAM: Revealed an 81-year-old female, sedated, mechanically ventilated, not in distress. HEAD: Normocephalic and atraumatic HEENT: PERRLA, EOMI, nonicteric, neck masses no JVD, nasogastric tube and endotracheal tube are intact. CHEST: No chest wall deformity. LUNGS: Diminished breath sounds at the bases minimal crackles nor rhonchi no wheezes CVS: S1 and S2 normal with no audible murmur, regular rhythm. No extra heart sounds. Heart rate 116 bpm ABDOMEN: Postsurgical midline abdominal incision with wound VAC in place. No rebound, no guarding SKIN: No rashes. CENTRAL NERVOUS SYSTEM: Could not assess patient is sedated. EXTREMITIES: There is mild nonpitting edema to the bilateral lower extremities. Diminished distal pulses in the feet bilaterally - Labs CBC & Chem 7: 07/05/22 04:59 07/05/22 04:59 Labs: Abnormal Lab Results - Last 24 Hours (Table) 07/04/22 07/04/22 07/04/22 Range/Units 12:45 12:45 12:45 RBC 3.62 L (3.80-5.40) m/uL Hgb 11.2 L (11.4-16.0) gm/dL Hct 33.9 L (34.0-46.0) % RDW 17.5 H (11.5-15.5) % Plt Count 112 L (150-450) k/uL Lymphocytes # (Manual) (1.0-4.8) k/uL Metamyelocytes # (Man) 0.21 H (0) k/uL Myelocytes # (Manual) 0.05 H (0) k/uL Nucleated RBCs 7 H (0-0) /100 WBC ABG HCO3 (21-25) mmol/L ABG Total CO2 (19-24) mmol/L ABG O2 Saturation (94-97) % Sodium (137-145) mmol/L Chloride 110 H (98-107) mmol/L Carbon Dioxide 18 L (22-30) mmol/L BUN 84 H (7-17) mg/dL Creatinine 3.93 H (0.52-1.04) mg/dL Glucose 183 H (74-99) mg/dL POC Glucose (mg/dL) (70-110) mg/dL Plasma Lactic Acid Carlos 4.3 H* (0.7-2.0) mmol/L Calcium 5.7 L* (8.4-10.2) mg/dL AST (14-36) U/L ALT (4-34) U/L Total Protein (6.3-8.2) g/dL Albumin (3.5-5.0) g/dL 07/04/22 07/05/22 07/05/22 Range/Units 17:22 02:42 03:15 RBC (3.80-5.40) m/uL Hgb (11.4-16.0) gm/dL Hct (34.0-46.0) % RDW (11.5-15.5) % Plt Count (150-450) k/uL Lymphocytes # (Manual) (1.0-4.8) k/uL Metamyelocytes # (Man) (0) k/uL Myelocytes # (Manual) (0) k/uL Nucleated RBCs (0-0) /100 WBC ABG HCO3 (21-25) mmol/L ABG Total CO2 (19-24) mmol/L ABG O2 Saturation (94-97) % Sodium (137-145) mmol/L Chloride (98-107) mmol/L Carbon Dioxide (22-30) mmol/L BUN (7-17) mg/dL Creatinine (0.52-1.04) mg/dL Glucose (74-99) mg/dL POC Glucose (mg/dL) 151 H 67 L 179 H (70-110) mg/dL Plasma Lactic Acid Carlos (0.7-2.0) mmol/L Calcium (8.4-10.2) mg/dL AST (14-36) U/L ALT (4-34) U/L Total Protein (6.3-8.2) g/dL Albumin (3.5-5.0) g/dL 07/05/22 07/05/22 07/05/22 Range/Units 04:59 04:59 05:54 RBC 3.64 L (3.80-5.40) m/uL Hgb 11.2 L (11.4-16.0) gm/dL Hct 33.5 L (34.0-46.0) % RDW 18.2 H (11.5-15.5) % Plt Count 78 L (150-450) k/uL Lymphocytes # (Manual) 0.90 L (1.0-4.8) k/uL Metamyelocytes # (Man) 0.18 H (0) k/uL Myelocytes # (Manual) 0.09 H (0) k/uL Nucleated RBCs 7 H (0-0) /100 WBC ABG HCO3 26 H (21-25) mmol/L ABG Total CO2 27 H (19-24) mmol/L ABG O2 Saturation 97.2 H (94-97) % Sodium 134 L (137-145) mmol/L Chloride (98-107) mmol/L Carbon Dioxide (22-30) mmol/L BUN 58 H (7-17) mg/dL Creatinine 3.03 H (0.52-1.04) mg/dL Glucose 142 H (74-99) mg/dL POC Glucose (mg/dL) (70-110) mg/dL Plasma Lactic Acid Carlos (0.7-2.0) mmol/L Calcium 5.8 L* (8.4-10.2) mg/dL AST 419 H (14-36) U/L ALT 393 H (4-34) U/L Total Protein 3.3 L (6.3-8.2) g/dL Albumin 1.7 L (3.5-5.0) g/dL / Range/Units 06:02 RBC (3.80-5.40) m/uL Hgb (11.4-16.0) gm/dL Hct (34.0-46.0) % RDW (11.5-15.5) % Plt Count (150-450) k/uL Lymphocytes # (Manual) (1.0-4.8) k/uL Metamyelocytes # (Man) (0) k/uL Myelocytes # (Manual) (0) k/uL Nucleated RBCs (0-0) /100 WBC ABG HCO3 (21-25) mmol/L ABG Total CO2 (19-24) mmol/L ABG O2 Saturation (94-97) % Sodium (137-145) mmol/L Chloride (98-107) mmol/L Carbon Dioxide (22-30) mmol/L BUN (7-17) mg/dL Creatinine (0.52-1.04) mg/dL Glucose (74-99) mg/dL POC Glucose (mg/dL) 114 H (70-110) mg/dL Plasma Lactic Acid Carlos (0.7-2.0) mmol/L Calcium (8.4-10.2) mg/dL AST (14-36) U/L ALT (4-34) U/L Total Protein (6.3-8.2) g/dL Albumin (3.5-5.0) g/dL Microbiology - Last 24 Hours (Table) 07/03/22 14:35 Blood Culture - Preliminary Blood 07/03/22 14:38 Blood Culture - Preliminary Blood 07/03/22 22:37 Gram Stain - Preliminary Sputum Sputum Culture - Preliminary Assessment and Plan Assessment: Impression: Acute hypoxic respiratory failure secondary to abdominal sepsis and surgical abdomen requiring expiratory laparotomy, segmental small bowel resection for small bowel obstruction postoperative day #2 Septic shock secondary to abdominal sepsis requiring pressors. Acute blood loss anemia with hypovolemia contributing to her hypotension Anion gap metabolic acidosis Acute on chronic kidney injury requiring hemodialysis Electrolytes imbalance including hyperkalemia and hypocalcemia secondary to acute kidney injury Chronic kidney disease stage IV Shock liver Irritable bowel syndrome History of hiatal hernia History of GERD Recommendation: Continue ventilatory support no changes made were made in the vent settings today after reviewing the ABG Continue hemodynamic support and pressors as well as fluids Continue hemodialysis for acute on chronic kidney injury Nutritional support/TPN Continue bronchodilators Address abnormal electrolytes and treat accordingly Continue empiric antibiotics including Merrem and Flagyl Continue GI and DVT prophylaxis Continue nasogastric tube to low intermittent suction Agree with plans to go back to surgery today hence no weaning will be attempted today. Patient remains critically ill, and she has multiple complex medical issues as noted above. Prognosis is definitely guarded Critical care time is over 30 Time with Patient: Greater than 30
[2022-07-05] MEDS: SODIUM CHLORIDE 0.9% 1,000 ML IV SCH (12:30)
[2022-07-05 12:41] LABS: Glucose,Whole Blood 74 mg/dL (70-110)
[2022-07-05 14:24] LABS: Hepatitis B Surface Antigen Nonreactive (Nonreactive)
[2022-07-05 14:35] LABS: Glucose,Whole Blood 65 mg/dL (70-110)
[2022-07-05 14:57] LABS: Glucose,Whole Blood 128 mg/dL (70-110)
[2022-07-05 15:09] LABS: Hepatitis B Surface AB- Quant 3.5 mIU/mL; Hepatitis B Surface Antibody Nonreactive (Nonreactive)
[2022-07-05 15:19] LABS: Magnesium 1.8 mg/dL (1.6-2.3)
[2022-07-05] MEDS ORDERED: CALCIUM GLUCONATE IN NACL 1 GM in SALINE 1 100ML.BAG IVPB ONE (15:37)
[2022-07-05] MEDS ORDERED: PHENYLEPHRINE-0.9% NACL SYG 1,000 MCG/10 ML SYRINGE ONE (16:14)
[2022-07-05] MEDS ORDERED: MIDAZOLAM 2 MG/2 ML VIAL ONE (16:14)
[2022-07-05] MEDS ORDERED: fentaNYL (PF) 50 MCG/ML 2 ML AMP ONE (16:14)
[2022-07-05] MEDS ORDERED: ROCURONIUM 10 MG/ML (5 ML VIAL) IV ONE (16:14)
[2022-07-05 16:15] LABS: Glucose,Whole Blood 85 mg/dL (70-110)
[2022-07-05] MEDS ORDERED: LACTATED RINGERS 1,000 ML IV ONE (16:18)
--- NOTE | 2022-07-05 17:37 | P.OP ---
Date of Procedure: 07/05/22 Preoperative Diagnosis: History of ischemic bowel, second look operation Postoperative Diagnosis: History of ischemic bowel, second-look operation, ischemic bowel Procedure(s) Performed: Exploratory laparotomy, segmental small bowel resection, formation of ileostomy with mucous fistula, placement of feeding tube and MAGNOLIA drain Anesthesia: KERRY Surgeon: Amira Winn Estimated Blood Loss (ml): 50 Condition: critical Disposition: ICU Indications for Procedure: The patient had an acute abdomen with ischemia. She underwent a laparotomy with resection of the small bowel on Monday. There were some areas that were dusky. Due to her being hemodynamically unstable the abdomen was closed with plan for taking her back for a second-look operation. Description of Procedure: Patient's taken the operative suite where she is prepped and draped in the usual sterile manner. The sutures in the fascia were removed. There is little serosanguineous fluid in the abdomen. The small bowel was brought up through the incision. The bowel was run from proximal. There several feet of small intestine that are pink and viable. There is a couple areas where the serosa appeared ecchymotic but the areas peristalsed when stimulated. A mid section of small bowel, which should previously looked compromised, was reexamined. There is a few areas of gangrenous change there. An area about 8 inches was resected. And then area of the terminal ileum also had a section about a centimeter by 2 cm where it was full-thickness gangrenous change. That area was resected and several inches of healthy ileum were left. The abdomen was then irrigated and aspirated. Decision was made to place a feeding tube in that was placed through small skin neck and the left upper quadrant. The anterior wall of the stomach was tacked to the posterior fascia and peritoneum with 3-0 Vicryl. A small enterotomy was made and the 18-Amharic feeding tube was placed through the abdominal wall and into the enterotomy. The balloon was inflated with 7 mL's of sterile water. The gastric wall was then tacked to the posterior fascia and peritoneum circumferentially. A small stab incision was made in the left lower quadrant and a drain was placed allowing to loop in the pelvis and right lower quadrant/paracolic gutter. A disc of skin and subcutaneous tissue were then removed in the right lower quadrant. The jejunum was brought up along with a limb of the ileum. The loops of bowel were tacked to the posterior fascia and peritoneum using 0 Vicryl. The fascia was closed with 0 PDS. The skin was then closed with pola. The ileostomy was matured taking bites of the cut edge of the ileum, deep dermal and seromuscular. This everted the bowel. The small area of ileum was tacked to the jejunum and skin using 3-0 Vicryl forming a mucous fistula. An ostomy appliance was applied. A sterile dressing was applied. She tolerated the procedure without difficulty and will be taken back to the operating room on the ventilator.
[2022-07-05 18:23] LABS: Glucose,Whole Blood 66 mg/dL (70-110)
[2022-07-05] MEDS: NOREPINEPHRINE 32 MG in SODIUM CHLORIDE 0.9% 218 ML IV SCH (18:55)
[2022-07-05 18:56] LABS: Glucose,Whole Blood 26 mg/dL (70-110)
[2022-07-05 19:06] LABS: Glucose,Whole Blood 100 mg/dL (70-110)
[2022-07-05 19:19] LABS: Anisocytosis Slight; HCT 30.6 % (34.0-46.0); HGB 10.2 gm/dL (11.4-16.0); MCH 31.2 pg (25.0-35.0); MCHC 33.4 g/dL (31.0-37.0); MCV 93.6 fL (80.0-100.0); Mean Platelet Volume 11.5; RBC 3.27 m/uL (3.80-5.40); RDW 17.5 % (11.5-15.5)
[2022-07-05 19:34] LABS: Platelet Count 59 k/uL (150-450)
[2022-07-05 20:08] LABS: Glucose,Whole Blood 88 mg/dL (70-110)
[2022-07-05] MEDS: ALPRAZolam 0.5 MG TAB PO SCH (20:11)
[2022-07-05] MEDS ORDERED: SODIUM CHLORIDE 0.9% 1,000 ML IV ONE (20:24)
[2022-07-05 20:34] LABS: Band Neutrophils % 11 %; Eosinophils # (M) 0.07 k/uL (0-0.7); Lymphocytes # (M) 1.38 k/uL (1.0-4.8); Metamyelocytes % 13 %; Monocytes # (M) 0.28 k/uL (0-1.0); Myelocytes # (M) 0.28 k/uL (0); Myelocytes % 4 %; Neutrophils % (M) 49 %; Nucleated Red Blood Cells 18 /100 WBC (0-0); Total Cells Counted 200; WBC 6.9 k/uL (3.8-10.6)
[2022-07-05 20:35] LABS: Large Platelets Present; Polychromasia Present; Toxic Granulation Present; Toxic Vacuolation Present
[2022-07-05 20:38] LABS: INR 1.3 (<1.2); Partial Thromboplastin Time 63.9 sec (22.0-30.0); Prothrombin Time 13.6 sec (9.0-12.0)
[2022-07-05 21:40] LABS: Glucose,Whole Blood 75 mg/dL (70-110)
[2022-07-05] MEDS: VASOPRESSIN 20 UNIT in SODIUM CHLORIDE 0.9% 50 ML IV SCH (22:48)
[2022-07-05 22:57] LABS: Glucose,Whole Blood 78 mg/dL (70-110)
[2022-07-06 00:18] LABS: Glucose,Whole Blood 74 mg/dL (70-110)
[2022-07-06] MEDS: IPRATROPIUM-ALBUTEROL 3 ML NEB INHALATION SCH ×6 (00:24→20:39)
[2022-07-06] MEDS: INSULIN ASPART (NovoLOG) 100 UNIT/ML VIAL SQ SCH ×5 (01:11→23:55)
[2022-07-06 01:14] LABS: Anisocytosis Slight; HCT 27.3 % (34.0-46.0); HGB 9.2 gm/dL (11.4-16.0); MCHC 33.8 g/dL (31.0-37.0); MCV 91.9 fL (80.0-100.0); Mean Platelet Volume 12.1; RBC 2.97 m/uL (3.80-5.40); WBC 10.8 k/uL (3.8-10.6)
[2022-07-06 01:19] LABS: Platelet Count 45 k/uL (150-450)
[2022-07-06 01:26] LABS: Magnesium 1.8 mg/dL (1.6-2.3); Potassium 4.8 mmol/L (3.5-5.1)
[2022-07-06] MEDS: metroNIDAZOLE-NS PMX 500 MG in SALINE 1 100ML.BAG IVPB SCH ×3 (01:34→18:05)
[2022-07-06 01:35] LABS: INR 1.1 (<1.2); Partial Thromboplastin Time 44.1 sec (22.0-30.0); Prothrombin Time 11.8 sec (9.0-12.0)
[2022-07-06 01:36] LABS: Calcium 6.1 mg/dL (8.4-10.2)
[2022-07-06] MEDS ORDERED: CALCIUM GLUCONATE IN NACL 2 GM in SALINE 1 100ML.BAG IVPB ONE (02:06)
[2022-07-06 02:54] LABS: Glucose,Whole Blood 71 mg/dL (70-110)
[2022-07-06] MEDS: HEPARIN SODIUM,PORCINE/PF 5,000 UNIT/0.5 ML SYRINGE SQ SCH (04:03)
[2022-07-06] MEDS: MORPHINE SULFATE 4 MG/ML SYRINGE IV PRN ×3 (04:17→23:53)
[2022-07-06 05:29] LABS: Glucose,Whole Blood 72 mg/dL (70-110)
[2022-07-06] MEDS: LEVOTHYROXINE 75 MCG TAB PO SCH (05:31)
[2022-07-06 05:38] LABS: Anisocytosis Slight; HGB 9.1 gm/dL (11.4-16.0); MCH 30.1 pg (25.0-35.0); MCHC 33.9 g/dL (31.0-37.0); MCV 88.7 fL (80.0-100.0); Mean Platelet Volume 11.6; RBC 3.04 m/uL (3.80-5.40); RDW 17.9 % (11.5-15.5)
[2022-07-06] MEDS: SODIUM CHLORIDE 0.9% 1,000 ML IV SCH (05:46)
[2022-07-06 05:47] LABS: Platelet Count 41 k/uL (150-450)
[2022-07-06 05:50] LABS: ABG Base Excess 0.4 mmol/L; ABG HCO3 26 mmol/L (21-25); ABG PCO2 44 mmHg (35-45); ABG PH 7.38 (7.35-7.45); ABG PO2 117 mmHg (83-108); ABG TCO2 27 mmol/L (19-24)
[2022-07-06 05:55] LABS: Ionized Calcium 4.2 mg/dL (4.5-5.3)
[2022-07-06 06:04] LABS: Albumin 1.7 g/dL (3.5-5.0); Bilirubin, Conjugated 0.4 mg/dL (0.0-0.3); Bilirubin, Delta 0.9 mg/dL (0.0-0.2); Bilirubin,Unconjugated 0.8 mg/dL (0.0-1.1); Calcium 6.7 mg/dL (8.4-10.2); Magnesium 1.8 mg/dL (1.6-2.3); Potassium 4.9 mmol/L (3.5-5.1); Total Bilirubin 2.1 mg/dL (0.2-1.3); Total Protein 3.3 g/dL (6.3-8.2)
[2022-07-06 06:10] LABS: Band Neutrophils % 24 %; Metamyelocytes % 3 %; Neutrophils % (M) 59 %; Nucleated Red Blood Cells 15 /100 WBC (0-0); Total Cells Counted 200
[2022-07-06 06:11] LABS: Anisocytosis (M) Present; Lymphocytes # (M) 0.87 k/uL (1.0-4.8); Metamyelocytes # (M) 0.26 k/uL (0); Monocytes # (M) 0.52 k/uL (0-1.0); Polychromasia Present; Target Cells Present; WBC 8.7 k/uL (3.8-10.6)
[2022-07-06 06:12] LABS: Large Platelets Present
[2022-07-06 06:53] LABS: Glucose,Whole Blood 71 mg/dL (70-110)
--- NOTE | 2022-07-06 07:40 | XR ---
EXAMINATION TYPE: XR chest 1V portable DATE OF EXAM: 07/06/2022 6:06 AM COMPARISON: Chest radiograph from one day prior. TECHNIQUE: XR chest 1V portable Frontal view of the chest. CLINICAL INDICATION:Female, 81 years old with history of Tube placement; FINDINGS: Lungs/Pleura: Blunting of the left costophrenic angle with superimposed atelectasis. Pulmonary vascularity: Unremarkable. Heart/mediastinum: Cardiomediastinal silhouette is unremarkable. Atherosclerotic calcifications are seen in the aorta. Musculoskeletal: No acute osseous pathology. Other findings: None Lines/Tubes: Endotracheal tube with distal tip 3.9 cm above the amanda. Nasogastric tube with its distal tip and side-port projecting under the diaphragm and projecting over the gastric lumen. Right internal jugular central venous catheter with distal tip at the cavoatrial junction. IMPRESSION: 1. Stable support line and tubes. 2. Stable suspected left pleural effusion with atelectasis.
[2022-07-06] MEDS: NOREPINEPHRINE 32 MG in SODIUM CHLORIDE 0.9% 218 ML IV SCH (08:03)
[2022-07-06 08:13] LABS: Glucose,Whole Blood 38 mg/dL (70-110)
[2022-07-06] MEDS: DEXTROSE 50% SYRINGE 50 ML IVP PRN ×3 (08:19→14:55)
[2022-07-06] MEDS: CITALOPRAM HYDROBROMIDE 20 MG TAB PO SCH (08:22)
[2022-07-06] MEDS: CHOLECALCIFEROL 10 MCG (400 IU) TABLET PO SCH (08:22)
[2022-07-06] MEDS: allopurinoL 100 MG TAB PO SCH (08:22)
[2022-07-06] MEDS: CYANOCOBALAMIN 500 MCG TAB PO SCH (08:22)
[2022-07-06] MEDS: VASOPRESSIN 20 UNIT in SODIUM CHLORIDE 0.9% 50 ML IV SCH (08:22)
[2022-07-06] MEDS: TAMSULOSIN 0.4 MG CAP.ER.24H PO SCH (08:23)
[2022-07-06] MEDS: FERROUS SULFATE 325 MG TAB PO SCH (08:23)
[2022-07-06 08:30] LABS: Glucose,Whole Blood 196 mg/dL (70-110)
[2022-07-06] MEDS: MEROPENEM 500 MG in SODIUM CHLORIDE 0.9% 100 ML IVPB SCH (08:35)
[2022-07-06] MEDS: PANTOPRAZOLE 40 MG/10 ML VIAL IVP SCH (08:35)
[2022-07-06] MEDS: CHLORHEXIDINE GLUCONATE 15 ML CUP MUCOUS MEM SCH ×2 (08:35→19:45)
[2022-07-06 09:33] LABS: INR 1.2 (<1.2); Partial Thromboplastin Time 39.6 sec (22.0-30.0); Prothrombin Time 11.9 sec (9.0-12.0)
[2022-07-06 10:07] LABS: Glucose,Whole Blood 112 mg/dL (70-110)
--- NOTE | 2022-07-06 10:27 | P.PN ---
Subjective Progress Note Date: 07/06/22 Pt is tachycardic, levophed running at .06. Undergoing iHD. Had additional bowel surgery yesterday with removal of gangrenous bowel. General: intubated, sedated HEENT: normocephalic, atraumatic, no tracheal deviation Respiratory: symmetric chest rise, no cyanosis, ventilator dependent CVS: perfusing all extremities, no distal gangrene, no pitting edema GI: soft, ND : no SPT, no CVAT, mejia is present Neuro: sedated Hospital course: 81-year-old female with history of IBS, hypothyroidism, depression, gout, anxiety presenting with acute abdominal pain. In the ED, temperature 97.5, pulse 85, respiratory rate 19, blood pressure 93/64, saturating at 99% on room air. WBC 10.6, sodium 134, potassium 5.1, bicarb 15, creatinine 2.07, glucose 222, AST 48, ALT 39, troponin 0.012. 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 EKG showed normal sinus rhythm, right bundle branch block. Chest x- ray showed no acute process. Patient admitted for abdominal pain, nausea vomiting, possible ileus. Surgery consulted. In the ER, patient had a syncopal episode. A,, patient clearly had signs of severe sepsis, lactate was trending up, severe leukocytosis with bandemia. Likely source is abdomen. On broad- spectrum antibiotics, also had worsening acute kidney injury. For acidosis, started on IV sodium bicarbonate. Patient continued to worsen, and septic and hypovolemic shock. She was taken emergently for surgery. She had exploratory laparoscopy with segmental small bowel resection, was noted to have bowel ischemia. Currently she is intubated and sedated in the medical ICU. She had temp dialysis catheter placed and was started on iHD. Had second look operation on 07/05, had necrotic bowel removed and had ileostomy placement. Pt continued to have blood loss and thrombocytopenia issues. Assessment: Septic shock Bowel ischemia Ischemic hepatitis Mechanical ventilation Acute kidney injury on chronic kidney disease, now requiring dialysis Lactic acidosis High anion gap metabolic acidosis Possible cirrhosis Right bundle branch block Plan: Today, patient is afebrile, 99/44, heart rate 110, 100% on mechanical venti lation with FiO2 40% CBC demonstrate anemia down to 9.1, thrombocytopenia to 41, anemia/thrombocytop enia is worsening Basic metabolic panel shows hyponatremia to 134, BUN is 59, creatinine is 3.3, calcium is 5.8 Liver function tests show AST of 231, ALT of 220, total protein 3.3, albumin of 1.7 Sputum culture growing klebsiella oxytoca, resistent to cephalosporin Ordered CBC, basic metabolic panel, magnesium, liver function tests for tomorrow Continue levophed, monitor blood pressure for titration with goal map greater than 65 Continue meropenem, renally dosed, given thrombocytopenia Continue dosing flagyl 500mg q8h Continue morphine 4mg q4hPRN for pain Pt is Full Code DVT PPx with heparin BID Objective - Vital Signs Vital signs: Vital Signs Temp 98.1 F 07/06/22 04:25 Pulse 118 H 07/06/22 08:52 Resp 26 H 07/06/22 07:00 BP 110/45 07/06/22 04:25 Pulse Ox 99 07/06/22 07:00 FiO2 40 07/06/22 08:32 Intake & Output 07/05/22 07/06/22 07/06/22 18:59 06:59 18:59 Intake Total 9772.667 5734.420 251.663 Output Total 990 495 75 Balance 919.340 0480.420 176.663 Weight 69.1 kg Intake: IV 650 1950 250 Calcium Gluconate in NaCl 100 2 gm In Saline 1 100ml. bag @ 100 mls/hr IVPB ONCE ONE Rx#:[id number] Dextrose 5% in Water 1, 250 000 ml @ 125 mls/hr IV . Q9H12M [facility] with Sodium Bicarb (1 Meq/ml) 150 ml Rx#:[id number] FFP 600 Meropenem 500 mg In 100 Sodium Chloride 0.9% 100 ml @ 33.3 mls/hr IVPB Q24HR [facility] Rx#:[id number] RBC 700 Sodium Chloride 0.9% 1, 550 150 000 ml @ 50 mls/hr IV . Q20H [facility] Rx#:[id number] Intake, IV Titration 691.408 130.420 1.663 Amount Calcium Gluconate in NaCl 200 2 gm In Saline 1 100ml. bag @ 100 mls/hr IVPB ONCE ONE Rx#:[id number] Calcium Gluconate in NaCl 100 2 gm In Saline 1 100ml. bag @ 100 mls/hr IVPB ONCE ONE Rx#:[id number] Norepinephrine 32 mg In 41.408 35.661 1.663 Sodium Chloride 0.9% 218 ml @ 0.05 MCG/KG/MIN 1. 223 mls/hr IV .Q24H REPLACED BY [facility] Rx#:[id number] Sodium Chloride 0.9% 1, 350 50 000 ml @ 50 mls/hr IV . Q20H REPLACED BY [facility] Rx#:[id number] propofoL 1,000 mg In 44.759 Empty Bag 1 bag @ 15 MCG/ KG/MIN 4.695 mls/hr IV . [id number] REPLACED BY [facility] Rx#:[id number] Blood Product 1258 Ffp 24 Cpd Unit 306 [id number] Ffp 24 Cpd Unit 332 [id number] Rc As-1 Unit 310 [id number] Rc As-1 Unit 310 [id number] Hemodialysis 300 Output: Gastric Drainage 450 250 Drainage 475 240 70 Medial Abdomen 475 240 70 Urine 15 5 5 Hemodialysis 0 Estimated Blood Loss 50 Other: Voiding Method Indwelling Catheter Indwelling Catheter ABP, PAP, CO, CI - Last Documented Arterial Blood Pressure 108/45 - Labs CBC & Chem 7: 07/06/22 05:30 07/06/22 05:30 Labs: Abnormal Lab Results - Last 24 Hours (Table) 07/03/22 07/05/22 07/05/22 Range/Units 20:48 14:33 14:40 WBC (3.8-10.6) k/uL RBC (3.80-5.40) m/uL Hgb (11.4-16.0) gm/dL Hct (34.0-46.0) % RDW (11.5-15.5) % Plt Count (150-450) k/uL Lymphocytes # (Manual) (1.0-4.8) k/uL Metamyelocytes # (Man) (0) k/uL Myelocytes # (Manual) (0) k/uL Nucleated RBCs (0-0) /100 WBC PT (9.0-12.0) sec INR (<1.2) APTT (22.0-30.0) sec ABG pO2 (83-108) mmHg ABG HCO3 (21-25) mmol/L ABG Total CO2 (19-24) mmol/L ABG O2 Saturation (94-97) % Sodium (137-145) mmol/L BUN (7-17) mg/dL Creatinine (0.52-1.04) mg/dL Glucose (74-99) mg/dL POC Glucose (mg/dL) 65 L (70-110) mg/dL Calcium (8.4-10.2) mg/dL Ionized Calcium Vance 4.0 L (4.5-5.3) mg/dL Phosphorus (2.5-4.5) mg/dL Total Bilirubin (0.2-1.3) mg/dL Conjugated Bilirubin (0.0-0.3) mg/dL Delta Bilirubin (0.0-0.2) mg/dL AST (14-36) U/L ALT (4-34) U/L Total Protein (6.3-8.2) g/dL Albumin (3.5-5.0) g/dL Crossmatch See Detail 07/05/22 07/05/22 07/05/22 Range/Units 14:56 18:22 18:55 WBC (3.8-10.6) k/uL RBC (3.80-5.40) m/uL Hgb (11.4-16.0) gm/dL Hct (34.0-46.0) % RDW (11.5-15.5) % Plt Count (150-450) k/uL Lymphocytes # (Manual) (1.0-4.8) k/uL Metamyelocytes # (Man) (0) k/uL Myelocytes # (Manual) (0) k/uL Nucleated RBCs (0-0) /100 WBC PT (9.0-12.0) sec INR (<1.2) APTT (22.0-30.0) sec ABG pO2 (83-108) mmHg ABG HCO3 (21-25) mmol/L ABG Total CO2 (19-24) mmol/L ABG O2 Saturation (94-97) % Sodium (137-145) mmol/L BUN (7-17) mg/dL Creatinine (0.52-1.04) mg/dL Glucose (74-99) mg/dL POC Glucose (mg/dL) 128 H 66 L 26 L (70-110) mg/dL Calcium (8.4-10.2) mg/dL Ionized Calcium Vance (4.5-5.3) mg/dL Phosphorus (2.5-4.5) mg/dL Total Bilirubin (0.2-1.3) mg/dL Conjugated Bilirubin (0.0-0.3) mg/dL Delta Bilirubin (0.0-0.2) mg/dL AST (14-36) U/L ALT (4-34) U/L Total Protein (6.3-8.2) g/dL Albumin (3.5-5.0) g/dL Crossmatch 07/05/22 07/05/22 07/06/22 Range/Units 19:10 20:08 01:00 WBC 10.8 H (3.8-10.6) k/uL RBC 3.27 L 2.97 L (3.80-5.40) m/uL Hgb 10.2 L 9.2 L (11.4-16.0) gm/dL Hct 30.6 L 27.3 L (34.0-46.0) % RDW 17.5 H 18.0 H (11.5-15.5) % Plt Count 59 L 45 L (150-450) k/uL Lymphocytes # (Manual) (1.0-4.8) k/uL Metamyelocytes # (Man) 0.90 H (0) k/uL Myelocytes # (Manual) 0.28 H (0) k/uL Nucleated RBCs 18 H (0-0) /100 WBC PT 13.6 H (9.0-12.0) sec INR 1.3 H (<1.2) APTT 63.9 H (22.0-30.0) sec ABG pO2 (83-108) mmHg ABG HCO3 (21-25) mmol/L ABG Total CO2 (19-24) mmol/L ABG O2 Saturation (94-97) % Sodium (137-145) mmol/L BUN (7-17) mg/dL Creatinine (0.52-1.04) mg/dL Glucose (74-99) mg/dL POC Glucose (mg/dL) (70-110) mg/dL Calcium (8.4-10.2) mg/dL Ionized Calcium Vance (4.5-5.3) mg/dL Phosphorus (2.5-4.5) mg/dL Total Bilirubin (0.2-1.3) mg/dL Conjugated Bilirubin (0.0-0.3) mg/dL Delta Bilirubin (0.0-0.2) mg/dL AST (14-36) U/L ALT (4-34) U/L Total Protein (6.3-8.2) g/dL Albumin (3.5-5.0) g/dL Crossmatch 07/06/22 07/06/22 07/06/22 Range/Units 01:00 01:00 05:30 WBC (3.8-10.6) k/uL RBC 3.04 L (3.80-5.40) m/uL Hgb 9.1 L (11.4-16.0) gm/dL Hct 27.0 L (34.0-46.0) % RDW 17.9 H (11.5-15.5) % Plt Count 41 L (150-450) k/uL Lymphocytes # (Manual) 0.87 L (1.0-4.8) k/uL Metamyelocytes # (Man) 0.26 H (0) k/uL Myelocytes # (Manual) (0) k/uL Nucleated RBCs 15 H (0-0) /100 WBC PT (9.0-12.0) sec INR (<1.2) APTT 44.1 H (22.0-30.0) sec ABG pO2 (83-108) mmHg ABG HCO3 (21-25) mmol/L ABG Total CO2 (19-24) mmol/L ABG O2 Saturation (94-97) % Sodium 134 L (137-145) mmol/L BUN 57 H (7-17) mg/dL Creatinine 3.19 H (0.52-1.04) mg/dL Glucose 65 L (74-99) mg/dL POC Glucose (mg/dL) (70-110) mg/dL Calcium 6.1 L* (8.4-10.2) mg/dL Ionized Calcium Vance (4.5-5.3) mg/dL Phosphorus 5.0 H (2.5-4.5) mg/dL Total Bilirubin (0.2-1.3) mg/dL Conjugated Bilirubin (0.0-0.3) mg/dL Delta Bilirubin (0.0-0.2) mg/dL AST (14-36) U/L ALT (4-34) U/L Total Protein (6.3-8.2) g/dL Albumin (3.5-5.0) g/dL Crossmatch 07/06/22 07/06/22 07/06/22 Range/Units 05:30 05:48 08:11 WBC (3.8-10.6) k/uL RBC (3.80-5.40) m/uL Hgb (11.4-16.0) gm/dL Hct (34.0-46.0) % RDW (11.5-15.5) % Plt Count (150-450) k/uL Lymphocytes # (Manual) (1.0-4.8) k/uL Metamyelocytes # (Man) (0) k/uL Myelocytes # (Manual) (0) k/uL Nucleated RBCs (0-0) /100 WBC PT (9.0-12.0) sec INR (<1.2) APTT (22.0-30.0) sec ABG pO2 117 H (83-108) mmHg ABG HCO3 26 H (21-25) mmol/L ABG Total CO2 27 H (19-24) mmol/L ABG O2 Saturation 99.0 H (94-97) % Sodium 134 L (137-145) mmol/L BUN 59 H (7-17) mg/dL Creatinine 3.32 H (0.52-1.04) mg/dL Glucose 64 L (74-99) mg/dL POC Glucose (mg/dL) 38 L (70-110) mg/dL Calcium 6.7 L (8.4-10.2) mg/dL Ionized Calcium Vance 4.2 L (4.5-5.3) mg/dL Phosphorus (2.5-4.5) mg/dL Total Bilirubin 2.1 H (0.2-1.3) mg/dL Conjugated Bilirubin 0.4 H (0.0-0.3) mg/dL Delta Bilirubin 0.9 H (0.0-0.2) mg/dL AST 231 H (14-36) U/L ALT 220 H (4-34) U/L Total Protein 3.3 L (6.3-8.2) g/dL Albumin 1.7 L (3.5-5.0) g/dL Crossmatch 07/06/22 07/06/22 07/06/22 Range/Units 08:29 09:01 10:05 WBC (3.8-10.6) k/uL RBC (3.80-5.40) m/uL Hgb (11.4-16.0) gm/dL Hct (34.0-46.0) % RDW (11.5-15.5) % Plt Count (150-450) k/uL Lymphocytes # (Manual) (1.0-4.8) k/uL Metamyelocytes # (Man) (0) k/uL Myelocytes # (Manual) (0) k/uL Nucleated RBCs (0-0) /100 WBC PT (9.0-12.0) sec INR 1.2 H (<1.2) APTT 39.6 H (22.0-30.0) sec ABG pO2 (83-108) mmHg ABG HCO3 (21-25) mmol/L ABG Total CO2 (19-24) mmol/L ABG O2 Saturation (94-97) % Sodium (137-145) mmol/L BUN (7-17) mg/dL Creatinine (0.52-1.04) mg/dL Glucose (74-99) mg/dL POC Glucose (mg/dL) 196 H 112 H (70-110) mg/dL Calcium (8.4-10.2) mg/dL Ionized Calcium Vance (4.5-5.3) mg/dL Phosphorus (2.5-4.5) mg/dL Total Bilirubin (0.2-1.3) mg/dL Conjugated Bilirubin (0.0-0.3) mg/dL Delta Bilirubin (0.0-0.2) mg/dL AST (14-36) U/L ALT (4-34) U/L Total Protein (6.3-8.2) g/dL Albumin (3.5-5.0) g/dL Crossmatch Microbiology - Last 24 Hours (Table) 07/03/22 14:35 Blood Culture - Preliminary Blood 07/03/22 14:38 Blood Culture - Preliminary Blood 07/03/22 22:37 Gram Stain - Final Sputum Sputum Culture - Final Klebsiella oxytoca
--- NOTE | 2022-07-06 11:26 | P.PN ---
Subjective Patient is seen in follow-up for acute kidney injury on chronic kidney disease. Oliguric. Underwent small bowel resection 07/03/2022 and another surgery with segmental small bowel resection, formation of ileostomy with mucous fistula and placement of PEG tube 07/05/2022.. Intubated. Patient has been bleeding from the ileostomy site and has received blood transfusions as well as platelets and FFP. Vital signs - afebrile. Tachycardic. On vasopressor support. General: Resting in bed. HEENT: Intubated. NG tube noted. LUNGS: Scattered rhonchi. HEART: Tachycardic. ABDOMEN: Ileostomy and PEG tube noted. Bleeding from ileostomy site noted. EXTREMITITES: No edema. Objective - Vital Signs Vital signs: Vital Signs Temp 98.1 F 07/06/22 10:44 Pulse 107 H 07/06/22 10:44 Resp 26 H 07/06/22 10:44 BP 94/43 07/06/22 10:44 Pulse Ox 99 07/06/22 10:44 FiO2 40 07/06/22 08:32 Intake & Output 07/05/22 07/06/22 07/06/22 18:59 06:59 18:59 Intake Total 4962.725 9335.420 301.663 Output Total 990 495 155 Balance 915.063 3480.420 146.663 Weight 69.1 kg Intake: IV 650 1950 300 Calcium Gluconate in NaCl 100 2 gm In Saline 1 100ml. bag @ 100 mls/hr IVPB ONCE ONE Rx#:[id number] Dextrose 5% in Water 1, 250 000 ml @ 125 mls/hr IV . Q9H12M [facility] with Sodium Bicarb (1 Meq/ml) 150 ml Rx#:[id number] FFP 600 Meropenem 500 mg In 100 Sodium Chloride 0.9% 100 ml @ 33.3 mls/hr IVPB Q24HR [facility] Rx#:[id number] RBC 700 Sodium Chloride 0.9% 1, 550 200 000 ml @ 50 mls/hr IV . Q20H ON LICENSE OF [facility] Rx#:[id number] Intake, IV Titration 691.408 130.420 1.663 Amount Calcium Gluconate in NaCl 200 2 gm In Saline 1 100ml. bag @ 100 mls/hr IVPB ONCE ONE Rx#:[id number] Calcium Gluconate in NaCl 100 2 gm In Saline 1 100ml. bag @ 100 mls/hr IVPB ONCE ONE Rx#:[id number] Norepinephrine 32 mg In 41.408 35.661 1.663 Sodium Chloride 0.9% 218 ml @ 0.05 MCG/KG/MIN 1. 223 mls/hr IV .Q24H ON LICENSE OF [facility] Rx#:[id number] Sodium Chloride 0.9% 1, 350 50 000 ml @ 50 mls/hr IV . Q20H ON LICENSE OF [facility] Rx#:[id number] propofoL 1,000 mg In 44.759 Empty Bag 1 bag @ 15 MCG/ KG/MIN 4.695 mls/hr IV . [id number] ON LICENSE OF [facility] Rx#:[id number] Blood Product 1258 0 Unit 0 Ffp 24 Cpd Unit 306 [id number] Ffp 24 Cpd Unit 332 [id number] Rc As-1 Unit 310 [id number] Rc As-1 Unit 310 [id number] Hemodialysis 300 Output: Gastric Drainage 450 250 Drainage 475 240 145 Medial Abdomen 475 240 145 Urine 15 5 10 Hemodialysis 0 Estimated Blood Loss 50 Other: Voiding Method Indwelling Catheter Indwelling Catheter ABP, PAP, CO, CI - Last Documented Arterial Blood Pressure 108/45 - Labs CBC & Chem 7: 07/06/22 05:30 07/06/22 05:30 Labs: Abnormal Lab Results - Last 24 Hours (Table) 07/03/22 07/05/22 07/05/22 Range/Units 20:48 14:33 14:40 WBC (3.8-10.6) k/uL RBC (3.80-5.40) m/uL Hgb (11.4-16.0) gm/dL Hct (34.0-46.0) % RDW (11.5-15.5) % Plt Count (150-450) k/uL Lymphocytes # (Manual) (1.0-4.8) k/uL Metamyelocytes # (Man) (0) k/uL Myelocytes # (Manual) (0) k/uL Nucleated RBCs (0-0) /100 WBC PT (9.0-12.0) sec INR (<1.2) APTT (22.0-30.0) sec ABG pO2 (83-108) mmHg ABG HCO3 (21-25) mmol/L ABG Total CO2 (19-24) mmol/L ABG O2 Saturation (94-97) % Sodium (137-145) mmol/L BUN (7-17) mg/dL Creatinine (0.52-1.04) mg/dL Glucose (74-99) mg/dL POC Glucose (mg/dL) 65 L (70-110) mg/dL Calcium (8.4-10.2) mg/dL Ionized Calcium Vance 4.0 L (4.5-5.3) mg/dL Phosphorus (2.5-4.5) mg/dL Total Bilirubin (0.2-1.3) mg/dL Conjugated Bilirubin (0.0-0.3) mg/dL Delta Bilirubin (0.0-0.2) mg/dL AST (14-36) U/L ALT (4-34) U/L Total Protein (6.3-8.2) g/dL Albumin (3.5-5.0) g/dL Crossmatch See Detail 07/05/22 07/05/22 07/05/22 Range/Units 14:56 18:22 18:55 WBC (3.8-10.6) k/uL RBC (3.80-5.40) m/uL Hgb (11.4-16.0) gm/dL Hct (34.0-46.0) % RDW (11.5-15.5) % Plt Count (150-450) k/uL Lymphocytes # (Manual) (1.0-4.8) k/uL Metamyelocytes # (Man) (0) k/uL Myelocytes # (Manual) (0) k/uL Nucleated RBCs (0-0) /100 WBC PT (9.0-12.0) sec INR (<1.2) APTT (22.0-30.0) sec ABG pO2 (83-108) mmHg ABG HCO3 (21-25) mmol/L ABG Total CO2 (19-24) mmol/L ABG O2 Saturation (94-97) % Sodium (137-145) mmol/L BUN (7-17) mg/dL Creatinine (0.52-1.04) mg/dL Glucose (74-99) mg/dL POC Glucose (mg/dL) 128 H 66 L 26 L (70-110) mg/dL Calcium (8.4-10.2) mg/dL Ionized Calcium Vance (4.5-5.3) mg/dL Phosphorus (2.5-4.5) mg/dL Total Bilirubin (0.2-1.3) mg/dL Conjugated Bilirubin (0.0-0.3) mg/dL Delta Bilirubin (0.0-0.2) mg/dL AST (14-36) U/L ALT (4-34) U/L Total Protein (6.3-8.2) g/dL Albumin (3.5-5.0) g/dL Crossmatch 07/05/22 07/05/22 07/06/22 Range/Units 19:10 20:08 01:00 WBC 10.8 H (3.8-10.6) k/uL RBC 3.27 L 2.97 L (3.80-5.40) m/uL Hgb 10.2 L 9.2 L (11.4-16.0) gm/dL Hct 30.6 L 27.3 L (34.0-46.0) % RDW 17.5 H 18.0 H (11.5-15.5) % Plt Count 59 L 45 L (150-450) k/uL Lymphocytes # (Manual) (1.0-4.8) k/uL Metamyelocytes # (Man) 0.90 H (0) k/uL Myelocytes # (Manual) 0.28 H (0) k/uL Nucleated RBCs 18 H (0-0) /100 WBC PT 13.6 H (9.0-12.0) sec INR 1.3 H (<1.2) APTT 63.9 H (22.0-30.0) sec ABG pO2 (83-108) mmHg ABG HCO3 (21-25) mmol/L ABG Total CO2 (19-24) mmol/L ABG O2 Saturation (94-97) % Sodium (137-145) mmol/L BUN (7-17) mg/dL Creatinine (0.52-1.04) mg/dL Glucose (74-99) mg/dL POC Glucose (mg/dL) (70-110) mg/dL Calcium (8.4-10.2) mg/dL Ionized Calcium Vance (4.5-5.3) mg/dL Phosphorus (2.5-4.5) mg/dL Total Bilirubin (0.2-1.3) mg/dL Conjugated Bilirubin (0.0-0.3) mg/dL Delta Bilirubin (0.0-0.2) mg/dL AST (14-36) U/L ALT (4-34) U/L Total Protein (6.3-8.2) g/dL Albumin (3.5-5.0) g/dL Crossmatch 07/06/22 07/06/22 07/06/22 Range/Units 01:00 01:00 05:30 WBC (3.8-10.6) k/uL RBC 3.04 L (3.80-5.40) m/uL Hgb 9.1 L (11.4-16.0) gm/dL Hct 27.0 L (34.0-46.0) % RDW 17.9 H (11.5-15.5) % Plt Count 41 L (150-450) k/uL Lymphocytes # (Manual) 0.87 L (1.0-4.8) k/uL Metamyelocytes # (Man) 0.26 H (0) k/uL Myelocytes # (Manual) (0) k/uL Nucleated RBCs 15 H (0-0) /100 WBC PT (9.0-12.0) sec INR (<1.2) APTT 44.1 H (22.0-30.0) sec ABG pO2 (83-108) mmHg ABG HCO3 (21-25) mmol/L ABG Total CO2 (19-24) mmol/L ABG O2 Saturation (94-97) % Sodium 134 L (137-145) mmol/L BUN 57 H (7-17) mg/dL Creatinine 3.19 H (0.52-1.04) mg/dL Glucose 65 L (74-99) mg/dL POC Glucose (mg/dL) (70-110) mg/dL Calcium 6.1 L* (8.4-10.2) mg/dL Ionized Calcium Vance (4.5-5.3) mg/dL Phosphorus 5.0 H (2.5-4.5) mg/dL Total Bilirubin (0.2-1.3) mg/dL Conjugated Bilirubin (0.0-0.3) mg/dL Delta Bilirubin (0.0-0.2) mg/dL AST (14-36) U/L ALT (4-34) U/L Total Protein (6.3-8.2) g/dL Albumin (3.5-5.0) g/dL Crossmatch 07/06/22 07/06/22 07/06/22 Range/Units 05:30 05:48 08:11 WBC (3.8-10.6) k/uL RBC (3.80-5.40) m/uL Hgb (11.4-16.0) gm/dL Hct (34.0-46.0) % RDW (11.5-15.5) % Plt Count (150-450) k/uL Lymphocytes # (Manual) (1.0-4.8) k/uL Metamyelocytes # (Man) (0) k/uL Myelocytes # (Manual) (0) k/uL Nucleated RBCs (0-0) /100 WBC PT (9.0-12.0) sec INR (<1.2) APTT (22.0-30.0) sec ABG pO2 117 H (83-108) mmHg ABG HCO3 26 H (21-25) mmol/L ABG Total CO2 27 H (19-24) mmol/L ABG O2 Saturation 99.0 H (94-97) % Sodium 134 L (137-145) mmol/L BUN 59 H (7-17) mg/dL Creatinine 3.32 H (0.52-1.04) mg/dL Glucose 64 L (74-99) mg/dL POC Glucose (mg/dL) 38 L (70-110) mg/dL Calcium 6.7 L (8.4-10.2) mg/dL Ionized Calcium Vance 4.2 L (4.5-5.3) mg/dL Phosphorus (2.5-4.5) mg/dL Total Bilirubin 2.1 H (0.2-1.3) mg/dL Conjugated Bilirubin 0.4 H (0.0-0.3) mg/dL Delta Bilirubin 0.9 H (0.0-0.2) mg/dL AST 231 H (14-36) U/L ALT 220 H (4-34) U/L Total Protein 3.3 L (6.3-8.2) g/dL Albumin 1.7 L (3.5-5.0) g/dL Crossmatch 07/06/22 07/06/22 07/06/22 Range/Units 08:29 09:01 10:05 WBC (3.8-10.6) k/uL RBC (3.80-5.40) m/uL Hgb (11.4-16.0) gm/dL Hct (34.0-46.0) % RDW (11.5-15.5) % Plt Count (150-450) k/uL Lymphocytes # (Manual) (1.0-4.8) k/uL Metamyelocytes # (Man) (0) k/uL Myelocytes # (Manual) (0) k/uL Nucleated RBCs (0-0) /100 WBC PT (9.0-12.0) sec INR 1.2 H (<1.2) APTT 39.6 H (22.0-30.0) sec ABG pO2 (83-108) mmHg ABG HCO3 (21-25) mmol/L ABG Total CO2 (19-24) mmol/L ABG O2 Saturation (94-97) % Sodium (137-145) mmol/L BUN (7-17) mg/dL Creatinine (0.52-1.04) mg/dL Glucose (74-99) mg/dL POC Glucose (mg/dL) 196 H 112 H (70-110) mg/dL Calcium (8.4-10.2) mg/dL Ionized Calcium Vance (4.5-5.3) mg/dL Phosphorus (2.5-4.5) mg/dL Total Bilirubin (0.2-1.3) mg/dL Conjugated Bilirubin (0.0-0.3) mg/dL Delta Bilirubin (0.0-0.2) mg/dL AST (14-36) U/L ALT (4-34) U/L Total Protein (6.3-8.2) g/dL Albumin (3.5-5.0) g/dL Crossmatch Microbiology - Last 24 Hours (Table) 07/03/22 14:35 Blood Culture - Preliminary Blood 07/03/22 14:38 Blood Culture - Preliminary Blood 07/03/22 22:37 Gram Stain - Final Sputum Sputum Culture - Final Klebsiella oxytoca Assessment and Plan Plan: Assessment: 1. Acute kidney injury secondary to ATN secondary to hypotension/septic shock. Creatinine peaked at 3.93 this admission. Oliguric. No hydronephrosis noted on CAT scan. Started on hemodialysis 07/04/2022. Has a femoral catheter. 2. Chronic kidney disease stage IV with baseline creatinine near 2 secondary to nephrosclerosis. 3. Metabolic acidosis secondary to acute kidney injury and lactic acidosis s/p bicarbonate drip. Improved. 4. Hyperkalemia secondary to acute kidney injury, acidosis. Improved with medical management and HD. 5. Small bowel obstruction with ischemic bowel status post exploratory laparotomy with segmental small bowel resection 07/03/2022. Underwent another exploratory laparotomy with segmental small bowel resection, ileostomy formation and PEG tube placement 07/05/2022. 6. Hypocalcemia secondary to acute kidney injury. Replaced. Improved. 7. Acute blood loss anemia status post blood transfusions, FFP and platelets. Plan: Normal saline 50 mL an hour for maintenance fluids. Avoid nephrotoxins. Wean FiO2 and vasopressors. Attempt SLED today. DDAVP IV 1 today.
[2022-07-06 11:32] LABS: Glucose,Whole Blood 95 mg/dL (70-110)
[2022-07-06] MEDS ORDERED: DESMOPRESSIN ACETATE 16 MCG in SODIUM CHLORIDE 0.9% 50 ML IVPB ONE (11:45)
[2022-07-06 12:11] LABS: Glucose,Whole Blood 94 mg/dL (70-110)
[2022-07-06 14:18] LABS: Glucose,Whole Blood 48 mg/dL (70-110)
--- NOTE | 2022-07-06 14:40 | P.PN ---
Subjective Progress Note Date: 07/06/22 Principal diagnosis: Ischemic bowel Patient was seen on rounds twice today. She remained sedated on the ventilator. Hemodynamically she's being more stable. The lead was fed has been decreased substantially. She has had no further oozing from the incision. Objective - Vital Signs Vital signs: Vital Signs Temp 97.9 F 07/06/22 12:24 Pulse 108 H 07/06/22 14:00 Resp 26 H 07/06/22 14:00 BP 106/47 07/06/22 12:24 Pulse Ox 100 07/06/22 14:00 FiO2 40 07/06/22 14:00 Intake & Output 07/05/22 07/06/22 07/06/22 18:59 06:59 18:59 Intake Total 1215.384 0076.420 780.076 Output Total 990 495 230 Balance 251.816 3954.420 550.076 Weight 69.1 kg 69.1 kg Intake: IV 650 1950 500 Calcium Gluconate in NaCl 100 2 gm In Saline 1 100ml. bag @ 100 mls/hr IVPB ONCE ONE Rx#:[id number] Desmopressin Acetate 16 50 mcg In Sodium Chloride 0. 9% 50 ml @ 200 mls/hr IVPB ONCE ONE Rx#: [id number] Dextrose 5% in Water 1, 250 000 ml @ 125 mls/hr IV . Q9H12M SHARMIN with Sodium Bicarb (1 Meq/ml) 150 ml Rx#:[id number] FFP 600 Meropenem 500 mg In 100 Sodium Chloride 0.9% 100 ml @ 33.3 mls/hr IVPB Q24HR SHARMIN Rx#:[id number] RBC 700 Sodium Chloride 0.9% 1, 550 350 000 ml @ 50 mls/hr IV . Q20H SHARMIN Rx#:[id number] Intake, IV Titration 691.408 130.420 11.076 Amount Calcium Gluconate in NaCl 200 2 gm In Saline 1 100ml. bag @ 100 mls/hr IVPB ONCE ONE Rx#:[id number] Calcium Gluconate in NaCl 100 2 gm In Saline 1 100ml. bag @ 100 mls/hr IVPB ONCE ONE Rx#:[id number] Norepinephrine 32 mg In 41.408 35.661 11.076 Sodium Chloride 0.9% 218 ml @ 0.05 MCG/KG/MIN 1. 223 mls/hr IV .Q24H SHARMIN Rx#:[id number] Sodium Chloride 0.9% 1, 350 50 000 ml @ 50 mls/hr IV . Q20H SHARMIN Rx#:[id number] propofoL 1,000 mg In 44.759 Empty Bag 1 bag @ 15 MCG/ KG/MIN 4.695 mls/hr IV . [id number] SHARMIN Rx#:[id number] Blood Product 1258 269 Ffp 24 Cpd Unit 306 [id number] Ffp 24 Cpd Unit 332 [id number] Platelet Pheresis Pas 269 Psoralen Unit [id number] Rc As-1 Unit 310 [id number] Rc As-1 Unit 310 [id number] Hemodialysis 300 Output: Gastric Drainage 450 250 Drainage 475 240 220 Medial Abdomen 475 240 220 Urine 15 5 10 Hemodialysis 0 Estimated Blood Loss 50 Other: Voiding Method Indwelling Catheter Indwelling Catheter Indwelling Catheter ABP, PAP, CO, CI - Last Documented Arterial Blood Pressure 114/55 - Constitutional Constitutional Comment(s): Sedated on the ventilator - Gastrointestinal Gastrointestinal Comment(s): Incision is intact with no bleeding. Ostomy is ready red with no output. MAGNOLIA is serosanguineous. 750 MLS since OR. Small amount of blood in the tubing of the feeding tube, this is not unexpected General gastrointestinal: Present: decreased bowel sounds, soft - Labs CBC & Chem 7: 07/06/22 05:30 07/06/22 05:30 Labs: Abnormal Lab Results - Last 24 Hours (Table) 07/03/22 07/05/22 07/05/22 Range/Units 20:48 14:33 14:40 WBC (3.8-10.6) k/uL RBC (3.80-5.40) m/uL Hgb (11.4-16.0) gm/dL Hct (34.0-46.0) % RDW (11.5-15.5) % Plt Count (150-450) k/uL Lymphocytes # (Manual) (1.0-4.8) k/uL Metamyelocytes # (Man) (0) k/uL Myelocytes # (Manual) (0) k/uL Nucleated RBCs (0-0) /100 WBC PT (9.0-12.0) sec INR (<1.2) APTT (22.0-30.0) sec ABG pO2 (83-108) mmHg ABG HCO3 (21-25) mmol/L ABG Total CO2 (19-24) mmol/L ABG O2 Saturation (94-97) % Sodium (137-145) mmol/L BUN (7-17) mg/dL Creatinine (0.52-1.04) mg/dL Glucose (74-99) mg/dL POC Glucose (mg/dL) 65 L (70-110) mg/dL Calcium (8.4-10.2) mg/dL Ionized Calcium Vance 4.0 L (4.5-5.3) mg/dL Phosphorus (2.5-4.5) mg/dL Total Bilirubin (0.2-1.3) mg/dL Conjugated Bilirubin (0.0-0.3) mg/dL Delta Bilirubin (0.0-0.2) mg/dL AST (14-36) U/L ALT (4-34) U/L Total Protein (6.3-8.2) g/dL Albumin (3.5-5.0) g/dL Crossmatch See Detail 07/05/22 07/05/22 07/05/22 Range/Units 14:56 18:22 18:55 WBC (3.8-10.6) k/uL RBC (3.80-5.40) m/uL Hgb (11.4-16.0) gm/dL Hct (34.0-46.0) % RDW (11.5-15.5) % Plt Count (150-450) k/uL Lymphocytes # (Manual) (1.0-4.8) k/uL Metamyelocytes # (Man) (0) k/uL Myelocytes # (Manual) (0) k/uL Nucleated RBCs (0-0) /100 WBC PT (9.0-12.0) sec INR (<1.2) APTT (22.0-30.0) sec ABG pO2 (83-108) mmHg ABG HCO3 (21-25) mmol/L ABG Total CO2 (19-24) mmol/L ABG O2 Saturation (94-97) % Sodium (137-145) mmol/L BUN (7-17) mg/dL Creatinine (0.52-1.04) mg/dL Glucose (74-99) mg/dL POC Glucose (mg/dL) 128 H 66 L 26 L (70-110) mg/dL Calcium (8.4-10.2) mg/dL Ionized Calcium Vance (4.5-5.3) mg/dL Phosphorus (2.5-4.5) mg/dL Total Bilirubin (0.2-1.3) mg/dL Conjugated Bilirubin (0.0-0.3) mg/dL Delta Bilirubin (0.0-0.2) mg/dL AST (14-36) U/L ALT (4-34) U/L Total Protein (6.3-8.2) g/dL Albumin (3.5-5.0) g/dL Crossmatch 07/05/22 07/05/22 07/06/22 Range/Units 19:10 20:08 01:00 WBC 10.8 H (3.8-10.6) k/uL RBC 3.27 L 2.97 L (3.80-5.40) m/uL Hgb 10.2 L 9.2 L (11.4-16.0) gm/dL Hct 30.6 L 27.3 L (34.0-46.0) % RDW 17.5 H 18.0 H (11.5-15.5) % Plt Count 59 L 45 L (150-450) k/uL Lymphocytes # (Manual) (1.0-4.8) k/uL Metamyelocytes # (Man) 0.90 H (0) k/uL Myelocytes # (Manual) 0.28 H (0) k/uL Nucleated RBCs 18 H (0-0) /100 WBC PT 13.6 H (9.0-12.0) sec INR 1.3 H (<1.2) APTT 63.9 H (22.0-30.0) sec ABG pO2 (83-108) mmHg ABG HCO3 (21-25) mmol/L ABG Total CO2 (19-24) mmol/L ABG O2 Saturation (94-97) % Sodium (137-145) mmol/L BUN (7-17) mg/dL Creatinine (0.52-1.04) mg/dL Glucose (74-99) mg/dL POC Glucose (mg/dL) (70-110) mg/dL Calcium (8.4-10.2) mg/dL Ionized Calcium Vance (4.5-5.3) mg/dL Phosphorus (2.5-4.5) mg/dL Total Bilirubin (0.2-1.3) mg/dL Conjugated Bilirubin (0.0-0.3) mg/dL Delta Bilirubin (0.0-0.2) mg/dL AST (14-36) U/L ALT (4-34) U/L Total Protein (6.3-8.2) g/dL Albumin (3.5-5.0) g/dL Crossmatch 07/06/22 07/06/22 07/06/22 Range/Units 01:00 01:00 05:30 WBC (3.8-10.6) k/uL RBC 3.04 L (3.80-5.40) m/uL Hgb 9.1 L (11.4-16.0) gm/dL Hct 27.0 L (34.0-46.0) % RDW 17.9 H (11.5-15.5) % Plt Count 41 L (150-450) k/uL Lymphocytes # (Manual) 0.87 L (1.0-4.8) k/uL Metamyelocytes # (Man) 0.26 H (0) k/uL Myelocytes # (Manual) (0) k/uL Nucleated RBCs 15 H (0-0) /100 WBC PT (9.0-12.0) sec INR (<1.2) APTT 44.1 H (22.0-30.0) sec ABG pO2 (83-108) mmHg ABG HCO3 (21-25) mmol/L ABG Total CO2 (19-24) mmol/L ABG O2 Saturation (94-97) % Sodium 134 L (137-145) mmol/L BUN 57 H (7-17) mg/dL Creatinine 3.19 H (0.52-1.04) mg/dL Glucose 65 L (74-99) mg/dL POC Glucose (mg/dL) (70-110) mg/dL Calcium 6.1 L* (8.4-10.2) mg/dL Ionized Calcium Vance (4.5-5.3) mg/dL Phosphorus 5.0 H (2.5-4.5) mg/dL Total Bilirubin (0.2-1.3) mg/dL Conjugated Bilirubin (0.0-0.3) mg/dL Delta Bilirubin (0.0-0.2) mg/dL AST (14-36) U/L ALT (4-34) U/L Total Protein (6.3-8.2) g/dL Albumin (3.5-5.0) g/dL Crossmatch 07/06/22 07/06/22 07/06/22 Range/Units 05:30 05:48 08:11 WBC (3.8-10.6) k/uL RBC (3.80-5.40) m/uL Hgb (11.4-16.0) gm/dL Hct (34.0-46.0) % RDW (11.5-15.5) % Plt Count (150-450) k/uL Lymphocytes # (Manual) (1.0-4.8) k/uL Metamyelocytes # (Man) (0) k/uL Myelocytes # (Manual) (0) k/uL Nucleated RBCs (0-0) /100 WBC PT (9.0-12.0) sec INR (<1.2) APTT (22.0-30.0) sec ABG pO2 117 H (83-108) mmHg ABG HCO3 26 H (21-25) mmol/L ABG Total CO2 27 H (19-24) mmol/L ABG O2 Saturation 99.0 H (94-97) % Sodium 134 L (137-145) mmol/L BUN 59 H (7-17) mg/dL Creatinine 3.32 H (0.52-1.04) mg/dL Glucose 64 L (74-99) mg/dL POC Glucose (mg/dL) 38 L (70-110) mg/dL Calcium 6.7 L (8.4-10.2) mg/dL Ionized Calcium Vance 4.2 L (4.5-5.3) mg/dL Phosphorus (2.5-4.5) mg/dL Total Bilirubin 2.1 H (0.2-1.3) mg/dL Conjugated Bilirubin 0.4 H (0.0-0.3) mg/dL Delta Bilirubin 0.9 H (0.0-0.2) mg/dL AST 231 H (14-36) U/L ALT 220 H (4-34) U/L Total Protein 3.3 L (6.3-8.2) g/dL Albumin 1.7 L (3.5-5.0) g/dL Crossmatch 07/06/22 07/06/22 07/06/22 Range/Units 08:29 09:01 10:05 WBC (3.8-10.6) k/uL RBC (3.80-5.40) m/uL Hgb (11.4-16.0) gm/dL Hct (34.0-46.0) % RDW (11.5-15.5) % Plt Count (150-450) k/uL Lymphocytes # (Manual) (1.0-4.8) k/uL Metamyelocytes # (Man) (0) k/uL Myelocytes # (Manual) (0) k/uL Nucleated RBCs (0-0) /100 WBC PT (9.0-12.0) sec INR 1.2 H (<1.2) APTT 39.6 H (22.0-30.0) sec ABG pO2 (83-108) mmHg ABG HCO3 (21-25) mmol/L ABG Total CO2 (19-24) mmol/L ABG O2 Saturation (94-97) % Sodium (137-145) mmol/L BUN (7-17) mg/dL Creatinine (0.52-1.04) mg/dL Glucose (74-99) mg/dL POC Glucose (mg/dL) 196 H 112 H (70-110) mg/dL Calcium (8.4-10.2) mg/dL Ionized Calcium Vance (4.5-5.3) mg/dL Phosphorus (2.5-4.5) mg/dL Total Bilirubin (0.2-1.3) mg/dL Conjugated Bilirubin (0.0-0.3) mg/dL Delta Bilirubin (0.0-0.2) mg/dL AST (14-36) U/L ALT (4-34) U/L Total Protein (6.3-8.2) g/dL Albumin (3.5-5.0) g/dL Crossmatch 07/06/22 Range/Units 14:16 WBC (3.8-10.6) k/uL RBC (3.80-5.40) m/uL Hgb (11.4-16.0) gm/dL Hct (34.0-46.0) % RDW (11.5-15.5) % Plt Count (150-450) k/uL Lymphocytes # (Manual) (1.0-4.8) k/uL Metamyelocytes # (Man) (0) k/uL Myelocytes # (Manual) (0) k/uL Nucleated RBCs (0-0) /100 WBC PT (9.0-12.0) sec INR (<1.2) APTT (22.0-30.0) sec ABG pO2 (83-108) mmHg ABG HCO3 (21-25) mmol/L ABG Total CO2 (19-24) mmol/L ABG O2 Saturation (94-97) % Sodium (137-145) mmol/L BUN (7-17) mg/dL Creatinine (0.52-1.04) mg/dL Glucose (74-99) mg/dL POC Glucose (mg/dL) 48 L (70-110) mg/dL Calcium (8.4-10.2) mg/dL Ionized Calcium Vance (4.5-5.3) mg/dL Phosphorus (2.5-4.5) mg/dL Total Bilirubin (0.2-1.3) mg/dL Conjugated Bilirubin (0.0-0.3) mg/dL Delta Bilirubin (0.0-0.2) mg/dL AST (14-36) U/L ALT (4-34) U/L Total Protein (6.3-8.2) g/dL Albumin (3.5-5.0) g/dL Crossmatch Microbiology - Last 24 Hours (Table) 07/03/22 14:35 Blood Culture - Preliminary Blood 07/03/22 14:38 Blood Culture - Preliminary Blood 07/03/22 22:37 Gram Stain - Final Sputum Sputum Culture - Final Klebsiella oxytoca Assessment and Plan (1) Abdominal pain Current Visit: Yes Status: Acute Code(s): R10.9 - UNSPECIFIED ABDOMINAL PAIN SNOMED Code(s): 09815625 (2) Ischemic bowel disease Current Visit: Yes Status: Acute Code(s): K55.9 - VASCULAR DISORDER OF INTESTINE, UNSPECIFIED SNOMED Code(s): 42817743 (3) Renal insufficiency Current Visit: No Status: Acute Code(s): N28.9 - DISORDER OF KIDNEY AND URETER, UNSPECIFIED SNOMED Code(s): 951769406 (4) Shock liver Current Visit: Yes Status: Acute Code(s): K72.00 - ACUTE AND SUBACUTE HEPATIC FAILURE WITHOUT COMA SNOMED Code(s): 337370133 (5) Coagulopathy Current Visit: Yes Status: Acute Code(s): D68.9 - COAGULATION DEFECT, UNSPECIFIED SNOMED Code(s): 80343555 (6) Thrombocytopenia Current Visit: Yes Status: Acute Code(s): D69.6 - THROMBOCYTOPENIA, UNSPECIFIED SNOMED Code(s): 359450401 Plan: Patient received 2 units of FFP last night along with platelets. She received 1 unit of packed red blood cells. There is no evidence of ongoing bleeding. I spoke with pulmonary critical care earlier today. The plan on trying a sedation holiday to see how her mentation is. Continue to wean the pressors. Monitor platelets and coagulation studies. Slowly progressing
[2022-07-06 14:42] LABS: Glucose,Whole Blood 57 mg/dL (70-110)
--- NOTE | 2022-07-06 14:56 | P.PN ---
Subjective Progress Note Date: 07/06/22 Principal diagnosis: Postoperative day #3 status post exploratory laparotomy with segmental bowel resection for small bowel obstruction I'm seeing this patient in new consultation today 07/04/2022 for ICU management post exploratory laparotomy and segmental small bowel resection for a small bowel obstruction. Patient is a 81-year-old white female with past medical history significant for irritable bowel syndrome, peptic ulcers with previous anemia and PRBC transfusions, GERD, hiatal hernia, chronic kidney disease stage IV, hypothyroidism, hypertension. Patient presented to the emergency room on July 02 with a chief complaint of abdominal pain, nausea, and vomiting for approximately one day. Patient reportedly had a bowel movement the day prior. A follow-up CT of the abdomen and pelvis without contrast showed fluid-filled prominent small bowel loops within the pelvis that could correlate for ileus. A low-grade small bowel obstruction was felt to be less likely at that time. There was also some ascites, and a small lobular liver. NG tube was originally inserted for gastric decompression, and the patient was observed overnight. The patient's condition progressively worsened, and was taken to surgery yesterday. Patient underwent an exploratory laparotomy with segmental small bowel resection. The abdomen was left open, and a wound VAC was applied. Postoperatively, the patient was left on the mechanical ventilator, and is currently in the intensive care unit. She is synchronous with the ventilator. Initial ventilator settings were assist control, respiratory rate 14, tidal volume 350, FiO2 100%, and a PEEP of 5. Initial chest x-ray showed the en dotracheal tube 2.4 cm from the amanda, NG tube was seen within the stomach, and there was some pulmonary vascular congestion without overt heart failure. Initial ABG on these settings showed a pO2 of 262, pCO2 of 50, pH of 7.12. Respiratory rate was increased to 26, tidal volume was increased to 400, and FiO2 reduced to 40%. A follow-up ABG showed a pO2 of 134, pCO2 of 34, and pH is 7.24. Propofol infusing at 15 mics per kilogram per minute for sedation. Patient was given 3 A of sodium bicarb and started on a sodium bicarb infusion 3 amps in D5W at 125 ML's per hour. There was an acute drop in hemoglobin from 10.8 g/dL preoperatively to 5.5 g/dL postoperatively. Patient is currently receiving 2 units PRBC transfusion. Patient was also fluid resuscitated with a total of 4 L normal saline. Patient's hypotension was refractory to fluid resuscitation, and was subsequently started on a norepinephrine infusion which is currently infusing at 0.12 mics per kilogram per minute through a right IJ double-lumen central line catheter. NG tube has a small amount of brown-green bilious nilton inage. Most recent CBC shows a WBC count of 4.8, hemoglobin 5.5, hematocrit 18.4, platelets 113,000. Most recent BMP postoperatively shows a sodium of 137, potassium 6.7, chloride 115, serum CO2 10, BUN 76, creatinine 4.14, glucose 96. Patient's hyperkalemia was treated with 8 units of insulin, an amp of D50W, 2 g of calcium gluconate, as well as the as the above-mentioned sodium bicarbonate. Patient has a component of acute on chronic kidney injury, and is currently anuric. Patient's lactic was also 6.6, and this will be rechecked. LFTs are mildly elevated. Patient was started on empiric Zosyn. The plan per surgical services, is to take the patient back to the operating room on Monday, once more hemodynamically stable. Shunt was reevaluated today on 07/05/2022, remains in the ICU, intubated and mechanically ventilated. Patient is on assist control rate of 26 tidal volume 400 FiO2 40% PEEP of 5 ABG showed a pO2 of 99 pCO2 39 pH of 7.43, hence no vent changes were made. Patient is on norepinephrine at 0.18 mcg/kg/m propofol at 10 mcg/kg/m she is also on bicarb drip which I have discontinued today, patient received dialysis last night. She is scheduled to have reexploration today and possibly closure of her abdominal incision sometime later today. Hence no plans to hold sedation or assess weaning at this point since the patient is going back to surgery. Chest x-ray showed mostly small left pleural effusion and atelectasis minimal increased interstitial densities. Labs were reviewed her WBC count is 9 hemoglobin 11.2. Platelets are 78,000 basic metabolic profile is normal however her BUN is 58 creatinine 3.03. Her enzymes remain elevated with AST of 419 ALT of 393. Antibiotics reno, patient is on Merrem and she is also on metronidazole. Patient was reevaluated today on 07/06/2022, remains intubated and mechanically ventilated. On 5/16/yesterday patient underwent another exploratory laparotomy segmental small bowel resection, formation of ileostomy with mucous fistula placement of feeding tube and MAGNOLIA drain. Postoperatively patient was sent back to the ICU. She is now on assist control rate of 26 tidal volume 400 FiO2 40% and PEEP of 5 ABG showed a pO2 of 117 pCO2 44 pH of 7.38. Patient is still requiring propofol at 10 mcg/kg/m and norepinephrine at 0.06 mcg/kg/m IV fluid is 0.9 normal saline at 50 mL an hour. Patient is undergoing intermittent hemodialysis. She had some intermittent bleeding at the surgical site, and she received so far a total of 4 units of packed RBCs, 2 units of fresh was a plasma and 1 unit of platelets. Chest x-ray showed small left pleural effusion and atelectasis. WBC count today is 8.7 hemoglobin is 9.1, electrolytes are normal renal profile showed a BUN of 59 and creatinine of 3.2, calcium is up to 6.7 l iver enzymes are improving compared to levels in the last few days definitely better and improved Objective - Vital Signs Vital signs: Vital Signs Temp 97.9 F 07/06/22 12:24 Pulse 108 H 07/06/22 14:00 Resp 26 H 07/06/22 14:00 BP 106/47 07/06/22 12:24 Pulse Ox 100 07/06/22 14:00 FiO2 40 07/06/22 14:00 Intake & Output 07/05/22 07/06/22 07/06/22 18:59 06:59 18:59 Intake Total 6205.916 6323.420 780.076 Output Total 990 495 230 Balance 270.687 4254.420 550.076 Weight 69.1 kg 69.1 kg Intake: IV 650 1950 500 Calcium Gluconate in NaCl 100 2 gm In Saline 1 100ml. bag @ 100 mls/hr IVPB ONCE ONE Rx#:[id number] Desmopressin Acetate 16 50 mcg In Sodium Chloride 0. 9% 50 ml @ 200 mls/hr IVPB ONCE ONE Rx#: [id number] Dextrose 5% in Water 1, 250 000 ml @ 125 mls/hr IV . Q9H12M SHARMIN with Sodium Bicarb (1 Meq/ml) 150 ml Rx#:[id number] FFP 600 Meropenem 500 mg In 100 Sodium Chloride 0.9% 100 ml @ 33.3 mls/hr IVPB Q24HR [facility] Rx#:[id number] RBC 700 Sodium Chloride 0.9% 1, 550 350 000 ml @ 50 mls/hr IV . Q20H [facility] Rx#:[id number] Intake, IV Titration 691.408 130.420 11.076 Amount Calcium Gluconate in NaCl 200 2 gm In Saline 1 100ml. bag @ 100 mls/hr IVPB ONCE ONE Rx#:[id number] Calcium Gluconate in NaCl 100 2 gm In Saline 1 100ml. bag @ 100 mls/hr IVPB ONCE ONE Rx#:[id number] Norepinephrine 32 mg In 41.408 35.661 11.076 Sodium Chloride 0.9% 218 ml @ 0.05 MCG/KG/MIN 1. 223 mls/hr IV .Q24H [facility] Rx#:[id number] Sodium Chloride 0.9% 1, 350 50 000 ml @ 50 mls/hr IV . Q20H [facility] Rx#:[id number] propofoL 1,000 mg In 44.759 Empty Bag 1 bag @ 15 MCG/ KG/MIN 4.695 mls/hr IV . [id number] [facility] Rx#:[id number] Blood Product 1258 269 Ffp 24 Cpd Unit 306 [id number] Ffp 24 Cpd Unit 332 [id number] Platelet Pheresis Pas 269 Psoralen Unit [id number] Rc As-1 Unit 310 [id number] Rc As-1 Unit 310 [id number] Hemodialysis 300 Output: Gastric Drainage 450 250 Drainage 475 240 220 Medial Abdomen 475 240 220 Urine 15 5 10 Hemodialysis 0 Estimated Blood Loss 50 Other: Voiding Method Indwelling Catheter Indwelling Catheter Indwelling Catheter ABP, PAP, CO, CI - Last Documented Arterial Blood Pressure 114/55 - Exam GENERAL EXAM: Revealed an 81-year-old female, sedated, mechanically ventilated, not in distress. HEAD: Normocephalic and atraumatic HEENT: PERRLA, EOMI, nonicteric, neck masses no JVD, nasogastric tube and endotracheal tube are intact. CHEST: No chest wall deformity. LUNGS: Diminished breath sounds at the bases minimal crackles at the bases. CVS: S1 and S2 normal with no audible murmur, regular rhythm. No extra heart sounds. Heart rate 116 bpm ABDOMEN: Postsurgical ileostomy is noted, feeding tube is noted, and MAGNOLIA drains are noted SKIN: No rashes. CENTRAL NERVOUS SYSTEM: Could not assess patient is sedated. However the patient is arousable to painful stimuli opens eyes, she is presently on propofol EXTREMITIES: Trace of bipedal edema noted. Diminished distal pulses - Labs CBC & Chem 7: 07/06/22 05:30 07/06/22 05:30 Labs: Abnormal Lab Results - Last 24 Hours (Table) 07/03/22 07/05/22 07/05/22 Range/Units 20:48 14:40 14:56 WBC (3.8-10.6) k/uL RBC (3.80-5.40) m/uL Hgb (11.4-16.0) gm/dL Hct (34.0-46.0) % RDW (11.5-15.5) % Plt Count (150-450) k/uL Lymphocytes # (Manual) (1.0-4.8) k/uL Metamyelocytes # (Man) (0) k/uL Myelocytes # (Manual) (0) k/uL Nucleated RBCs (0-0) /100 WBC PT (9.0-12.0) sec INR (<1.2) APTT (22.0-30.0) sec ABG pO2 (83-108) mmHg ABG HCO3 (21-25) mmol/L ABG Total CO2 (19-24) mmol/L ABG O2 Saturation (94-97) % Sodium (137-145) mmol/L BUN (7-17) mg/dL Creatinine (0.52-1.04) mg/dL Glucose (74-99) mg/dL POC Glucose (mg/dL) 128 H (70-110) mg/dL Calcium (8.4-10.2) mg/dL Ionized Calcium Vance 4.0 L (4.5-5.3) mg/dL Phosphorus (2.5-4.5) mg/dL Total Bilirubin (0.2-1.3) mg/dL Conjugated Bilirubin (0.0-0.3) mg/dL Delta Bilirubin (0.0-0.2) mg/dL AST (14-36) U/L ALT (4-34) U/L Total Protein (6.3-8.2) g/dL Albumin (3.5-5.0) g/dL Crossmatch See Detail 07/05/22 07/05/22 07/05/22 Range/Units 18:22 18:55 19:10 WBC (3.8-10.6) k/uL RBC 3.27 L (3.80-5.40) m/uL Hgb 10.2 L (11.4-16.0) gm/dL Hct 30.6 L (34.0-46.0) % RDW 17.5 H (11.5-15.5) % Plt Count 59 L (150-450) k/uL Lymphocytes # (Manual) (1.0-4.8) k/uL Metamyelocytes # (Man) 0.90 H (0) k/uL Myelocytes # (Manual) 0.28 H (0) k/uL Nucleated RBCs 18 H (0-0) /100 WBC PT (9.0-12.0) sec INR (<1.2) APTT (22.0-30.0) sec ABG pO2 (83-108) mmHg ABG HCO3 (21-25) mmol/L ABG Total CO2 (19-24) mmol/L ABG O2 Saturation (94-97) % Sodium (137-145) mmol/L BUN (7-17) mg/dL Creatinine (0.52-1.04) mg/dL Glucose (74-99) mg/dL POC Glucose (mg/dL) 66 L 26 L (70-110) mg/dL Calcium (8.4-10.2) mg/dL Ionized Calcium Vance (4.5-5.3) mg/dL Phosphorus (2.5-4.5) mg/dL Total Bilirubin (0.2-1.3) mg/dL Conjugated Bilirubin (0.0-0.3) mg/dL Delta Bilirubin (0.0-0.2) mg/dL AST (14-36) U/L ALT (4-34) U/L Total Protein (6.3-8.2) g/dL Albumin (3.5-5.0) g/dL Crossmatch 07/05/22 07/06/22 07/06/22 Range/Units 20:08 01:00 01:00 WBC 10.8 H (3.8-10.6) k/uL RBC 2.97 L (3.80-5.40) m/uL Hgb 9.2 L (11.4-16.0) gm/dL Hct 27.3 L (34.0-46.0) % RDW 18.0 H (11.5-15.5) % Plt Count 45 L (150-450) k/uL Lymphocytes # (Manual) (1.0-4.8) k/uL Metamyelocytes # (Man) (0) k/uL Myelocytes # (Manual) (0) k/uL Nucleated RBCs (0-0) /100 WBC PT 13.6 H (9.0-12.0) sec INR 1.3 H (<1.2) APTT 63.9 H 44.1 H (22.0-30.0) sec ABG pO2 (83-108) mmHg ABG HCO3 (21-25) mmol/L ABG Total CO2 (19-24) mmol/L ABG O2 Saturation (94-97) % Sodium (137-145) mmol/L BUN (7-17) mg/dL Creatinine (0.52-1.04) mg/dL Glucose (74-99) mg/dL POC Glucose (mg/dL) (70-110) mg/dL Calcium (8.4-10.2) mg/dL Ionized Calcium Vance (4.5-5.3) mg/dL Phosphorus (2.5-4.5) mg/dL Total Bilirubin (0.2-1.3) mg/dL Conjugated Bilirubin (0.0-0.3) mg/dL Delta Bilirubin (0.0-0.2) mg/dL AST (14-36) U/L ALT (4-34) U/L Total Protein (6.3-8.2) g/dL Albumin (3.5-5.0) g/dL Crossmatch 07/06/22 07/06/22 07/06/22 Range/Units 01:00 05:30 05:30 WBC (3.8-10.6) k/uL RBC 3.04 L (3.80-5.40) m/uL Hgb 9.1 L (11.4-16.0) gm/dL Hct 27.0 L (34.0-46.0) % RDW 17.9 H (11.5-15.5) % Plt Count 41 L (150-450) k/uL Lymphocytes # (Manual) 0.87 L (1.0-4.8) k/uL Metamyelocytes # (Man) 0.26 H (0) k/uL Myelocytes # (Manual) (0) k/uL Nucleated RBCs 15 H (0-0) /100 WBC PT (9.0-12.0) sec INR (<1.2) APTT (22.0-30.0) sec ABG pO2 (83-108) mmHg ABG HCO3 (21-25) mmol/L ABG Total CO2 (19-24) mmol/L ABG O2 Saturation (94-97) % Sodium 134 L 134 L (137-145) mmol/L BUN 57 H 59 H (7-17) mg/dL Creatinine 3.19 H 3.32 H (0.52-1.04) mg/dL Glucose 65 L 64 L (74-99) mg/dL POC Glucose (mg/dL) (70-110) mg/dL Calcium 6.1 L* 6.7 L (8.4-10.2) mg/dL Ionized Calcium Vance 4.2 L (4.5-5.3) mg/dL Phosphorus 5.0 H (2.5-4.5) mg/dL Total Bilirubin 2.1 H (0.2-1.3) mg/dL Conjugated Bilirubin 0.4 H (0.0-0.3) mg/dL Delta Bilirubin 0.9 H (0.0-0.2) mg/dL AST 231 H (14-36) U/L ALT 220 H (4-34) U/L Total Protein 3.3 L (6.3-8.2) g/dL Albumin 1.7 L (3.5-5.0) g/dL Crossmatch 07/06/22 07/06/22 07/06/22 Range/Units 05:48 08:11 08:29 WBC (3.8-10.6) k/uL RBC (3.80-5.40) m/uL Hgb (11.4-16.0) gm/dL Hct (34.0-46.0) % RDW (11.5-15.5) % Plt Count (150-450) k/uL Lymphocytes # (Manual) (1.0-4.8) k/uL Metamyelocytes # (Man) (0) k/uL Myelocytes # (Manual) (0) k/uL Nucleated RBCs (0-0) /100 WBC PT (9.0-12.0) sec INR (<1.2) APTT (22.0-30.0) sec ABG pO2 117 H (83-108) mmHg ABG HCO3 26 H (21-25) mmol/L ABG Total CO2 27 H (19-24) mmol/L ABG O2 Saturation 99.0 H (94-97) % Sodium (137-145) mmol/L BUN (7-17) mg/dL Creatinine (0.52-1.04) mg/dL Glucose (74-99) mg/dL POC Glucose (mg/dL) 38 L 196 H (70-110) mg/dL Calcium (8.4-10.2) mg/dL Ionized Calcium Vance (4.5-5.3) mg/dL Phosphorus (2.5-4.5) mg/dL Total Bilirubin (0.2-1.3) mg/dL Conjugated Bilirubin (0.0-0.3) mg/dL Delta Bilirubin (0.0-0.2) mg/dL AST (14-36) U/L ALT (4-34) U/L Total Protein (6.3-8.2) g/dL Albumin (3.5-5.0) g/dL Crossmatch 07/06/22 07/06/22 07/06/22 Range/Units 09:01 10:05 14:16 WBC (3.8-10.6) k/uL RBC (3.80-5.40) m/uL Hgb (11.4-16.0) gm/dL Hct (34.0-46.0) % RDW (11.5-15.5) % Plt Count (150-450) k/uL Lymphocytes # (Manual) (1.0-4.8) k/uL Metamyelocytes # (Man) (0) k/uL Myelocytes # (Manual) (0) k/uL Nucleated RBCs (0-0) /100 WBC PT (9.0-12.0) sec INR 1.2 H (<1.2) APTT 39.6 H (22.0-30.0) sec ABG pO2 (83-108) mmHg ABG HCO3 (21-25) mmol/L ABG Total CO2 (19-24) mmol/L ABG O2 Saturation (94-97) % Sodium (137-145) mmol/L BUN (7-17) mg/dL Creatinine (0.52-1.04) mg/dL Glucose (74-99) mg/dL POC Glucose (mg/dL) 112 H 48 L (70-110) mg/dL Calcium (8.4-10.2) mg/dL Ionized Calcium Vance (4.5-5.3) mg/dL Phosphorus (2.5-4.5) mg/dL Total Bilirubin (0.2-1.3) mg/dL Conjugated Bilirubin (0.0-0.3) mg/dL Delta Bilirubin (0.0-0.2) mg/dL AST (14-36) U/L ALT (4-34) U/L Total Protein (6.3-8.2) g/dL Albumin (3.5-5.0) g/dL Crossmatch 07/06/22 Range/Units 14:40 WBC (3.8-10.6) k/uL RBC (3.80-5.40) m/uL Hgb (11.4-16.0) gm/dL Hct (34.0-46.0) % RDW (11.5-15.5) % Plt Count (150-450) k/uL Lymphocytes # (Manual) (1.0-4.8) k/uL Metamyelocytes # (Man) (0) k/uL Myelocytes # (Manual) (0) k/uL Nucleated RBCs (0-0) /100 WBC PT (9.0-12.0) sec INR (<1.2) APTT (22.0-30.0) sec ABG pO2 (83-108) mmHg ABG HCO3 (21-25) mmol/L ABG Total CO2 (19-24) mmol/L ABG O2 Saturation (94-97) % Sodium (137-145) mmol/L BUN (7-17) mg/dL Creatinine (0.52-1.04) mg/dL Glucose (74-99) mg/dL POC Glucose (mg/dL) 57 L (70-110) mg/dL Calcium (8.4-10.2) mg/dL Ionized Calcium Vance (4.5-5.3) mg/dL Phosphorus (2.5-4.5) mg/dL Total Bilirubin (0.2-1.3) mg/dL Conjugated Bilirubin (0.0-0.3) mg/dL Delta Bilirubin (0.0-0.2) mg/dL AST (14-36) U/L ALT (4-34) U/L Total Protein (6.3-8.2) g/dL Albumin (3.5-5.0) g/dL Crossmatch Microbiology - Last 24 Hours (Table) 07/03/22 14:35 Blood Culture - Preliminary Blood 07/03/22 14:38 Blood Culture - Preliminary Blood 07/03/22 22:37 Gram Stain - Final Sputum Sputum Culture - Final Klebsiella oxytoca Assessment and Plan Assessment: Impression: Acute hypoxic respiratory failure secondary to abdominal sepsis and surgical abdomen requiring expiratory laparotomy, segmental small bowel resection for small bowel obstruction postoperative day #3 Status post repeat expiratory laparotomy segmental small bowel resection, ileostomy, feeding tube placement, and MAGNOLIA drains placement postoperative day #1 Septic shock secondary to abdominal sepsis requiring pressors. Acute blood loss anemia with hypovolemia contributing to her hypotension, responded to blood transfusions and fresh was a plasma as well as platelets Acute on chronic kidney injury requiring hemodialysis Chronic kidney disease stage IV Shock liver Irritable bowel syndrome History of hiatal hernia History of GERD Recommendation: Continue ventilatory support , vent settings were addressed based on ABG today. Continue hemodynamic support and pressors as well as fluids Continue hemodialysis for acute on chronic kidney injury Nutritional support/TPN Continue bronchodilators Continue empiric antibiotics including Merrem and Flagyl Continue GI and DVT prophylaxis Continue nasogastric tube to low intermittent suction Patient remains critically ill, and she has multiple complex medical issues Prognosis is definitely guarded Discussed her condition over the phone with Dr. Winn and updated on her overall ICU status Critical care time is over 30 Time with Patient: Greater than 30
[2022-07-06 14:58] LABS: Anisocytosis Slight; HGB 9.2 gm/dL (11.4-16.0); MCH 30.3 pg (25.0-35.0); MCHC 34.2 g/dL (31.0-37.0); MCV 88.7 fL (80.0-100.0); Mean Platelet Volume 9.1; Poikilocytosis Slight; RBC 3.05 m/uL (3.80-5.40); RDW 18.5 % (11.5-15.5); WBC 12.3 k/uL (3.8-10.6)
[2022-07-06 15:06] LABS: Glucose,Whole Blood 228 mg/dL (70-110)
[2022-07-06 15:22] LABS: Platelet Count 64 k/uL (150-450)
[2022-07-06] MEDS ORDERED: MVI, ADULT NO.4 WITH VIT K 10 ML, TRACE (CONC-1ML/DOSE) 1 ML, SODIUM ACETATE 30 MEQ, MA... IV SCH ×6 (16:00)
[2022-07-06 18:23] LABS: Glucose,Whole Blood 108 mg/dL (70-110)
[2022-07-06] MEDS: ALPRAZolam 0.5 MG TAB PO SCH (19:22)
[2022-07-06 19:27] LABS: Glucose,Whole Blood 114 mg/dL (70-110)
[2022-07-06 21:57] LABS: Glucose,Whole Blood 117 mg/dL (70-110)
[2022-07-06 23:55] LABS: Glucose,Whole Blood 117 mg/dL (70-110)
[2022-07-07] MEDS: IPRATROPIUM-ALBUTEROL 3 ML NEB INHALATION SCH ×6 (00:17→21:13)
[2022-07-07] MEDS: metroNIDAZOLE-NS PMX 500 MG in SALINE 1 100ML.BAG IVPB SCH ×3 (01:44→18:06)
[2022-07-07] MEDS: SODIUM CHLORIDE 0.9% 1,000 ML IV SCH (01:44)
[2022-07-07 04:21] LABS: Anisocytosis Slight; HCT 25.3 % (34.0-46.0); HGB 8.6 gm/dL (11.4-16.0); MCH 30.1 pg (25.0-35.0); MCV 88.6 fL (80.0-100.0); Mean Platelet Volume 10.7; Poikilocytosis Slight; RBC 2.86 m/uL (3.80-5.40); RDW 18.4 % (11.5-15.5); WBC 12.9 k/uL (3.8-10.6)
[2022-07-07 04:32] LABS: Platelet Count 43 k/uL (150-450)
[2022-07-07 05:06] LABS: Band Neutrophils % 8 %; Lymphocytes # (M) 1.16 k/uL (1.0-4.8); Metamyelocytes # (M) 0.13 k/uL (0); Metamyelocytes % 1 %; Monocytes # (M) 0.52 k/uL (0-1.0); Neutrophils % (M) 78 %; Nucleated Red Blood Cells 0 /100 WBC (0-0); Total Cells Counted 100
[2022-07-07 05:09] LABS: Albumin 1.5 g/dL (3.5-5.0); Bilirubin, Delta 0.8 mg/dL (0.0-0.2); Bilirubin,Unconjugated 0.2 mg/dL (0.0-1.1); Calcium 6.5 mg/dL (8.4-10.2); Magnesium 1.9 mg/dL (1.6-2.3); Potassium 3.7 mmol/L (3.5-5.1); Total Protein 3.1 g/dL (6.3-8.2)
[2022-07-07 05:28] LABS: ABG HCO3 28 mmol/L (21-25); ABG Oxygen Saturation 99.2 % (94-97); ABG PCO2 39 mmHg (35-45); ABG PH 7.46 (7.35-7.45); ABG PO2 117 mmHg (83-108); ABG TCO2 29 mmol/L (19-24)
[2022-07-07] MEDS: LEVOTHYROXINE 75 MCG TAB PO SCH (05:41)
[2022-07-07] MEDS: INSULIN ASPART (NovoLOG) 100 UNIT/ML VIAL SQ SCH ×3 (05:44→18:21)
[2022-07-07 05:45] LABS: Glucose,Whole Blood 89 mg/dL (70-110)
[2022-07-07] MEDS ORDERED: CALCIUM GLUCONATE IN NACL 2 GM in SALINE 1 100ML.BAG IVPB ONE (06:28)
--- NOTE | 2022-07-07 07:26 | XR ---
EXAMINATION TYPE: XR chest 1V portable DATE OF EXAM: 07/07/2022 Comparison: 07/06/2022 Clinical History: 81-year-old female Tube placement Findings: ET tube tip 2.37 m from the amanda. NG tube courses below the diaphragm. Somewhat limited by low lung volumes and kyphotic positioning. Heart borderline in size. Left basilar opacity and possible small left effusion persist. Right IJ CVC tip in the upper right atrium. Impression: Limited by low lung volumes and kyphotic positioning. Ongoing focal left basilar opacity with possibl e left effusion.
[2022-07-07] MEDS: FERROUS SULFATE 325 MG TAB PO SCH (08:30)
[2022-07-07] MEDS: CYANOCOBALAMIN 500 MCG TAB PO SCH (08:30)
[2022-07-07] MEDS: TAMSULOSIN 0.4 MG CAP.ER.24H PO SCH (08:30)
[2022-07-07] MEDS: allopurinoL 100 MG TAB PO SCH (08:31)
[2022-07-07] MEDS: CHOLECALCIFEROL 10 MCG (400 IU) TABLET PO SCH (08:31)
[2022-07-07] MEDS: CITALOPRAM HYDROBROMIDE 20 MG TAB PO SCH (08:31)
--- NOTE | 2022-07-07 08:57 | P.PN ---
Subjective Progress Note Date: 07/07/22 Principal diagnosis: Ischemic bowel The patient is seen on rounds. Sedation has been lowered. There will be attempt at weaning her from the ventilator today. She has been fairly stable but will go into episodes of SVT. Objective - Vital Signs Vital signs: Vital Signs Temp 98.1 F 07/07/22 04:00 Pulse 105 H 07/07/22 08:24 Resp 26 H 07/07/22 07:00 BP 106/47 07/06/22 12:24 Pulse Ox 100 07/07/22 07:00 FiO2 40 07/07/22 07:33 Intake & Output 07/06/22 07/07/22 07/07/22 18:59 06:59 18:59 Intake Total 7243.191 8000.221 180.771 Output Total 1075 620 0 Balance 179.851 380.221 180.771 Weight 69.1 kg 68.7 kg Intake: IV 710 960 180 Calcium Gluconate in NaCl 100 2 gm In Saline 1 100ml. bag @ 100 mls/hr IVPB ONCE ONE Rx#:[id number] Desmopressin Acetate 16 50 mcg In Sodium Chloride 0. 9% 50 ml @ 200 mls/hr IVPB ONCE ONE Rx#: [id number] Meropenem 500 mg In 100 Sodium Chloride 0.9% 100 ml @ 33.3 mls/hr IVPB Q24HR [facility] Rx#:[id number] Mvi, Adult No.4 with Vit 60 360 30 K 10 ml Trace (Conc-1Ml/ Dose) 1 ml Sodium Acetate 30 meq Magnesium Sulfate gm 1 gm Calcium Gluconate 2 gm In Amino Acid 5%-D15w 1,000 ml @ 30 mls/hr IV .Q24H [facility] Rx #:[id number] Sodium Chloride 0.9% 1, 500 600 50 000 ml @ 50 mls/hr IV . Q20H [facility] Rx#:[id number] Intake, IV Titration 75.851 40.221 0.771 Amount Norepinephrine 32 mg In 15.103 15.859 0.771 Sodium Chloride 0.9% 218 ml @ 0.05 MCG/KG/MIN 1. 223 mls/hr IV .Q24H [facility] Rx#:[id number] propofoL 1,000 mg In 60.748 24.362 Empty Bag 1 bag @ 15 MCG/ KG/MIN 4.695 mls/hr IV . [id number] [facility] Rx#:[id number] Blood Product 269 Platelet Pheresis Pas 269 Psoralen Unit [id number] Hemodialysis 200 Output: Gastric Drainage 500 Drainage 260 100 Medial Abdomen 260 100 Urine 15 20 0 Hemodialysis 800 Other: Voiding Method Indwelling Catheter Indwelling Catheter ABP, PAP, CO, CI - Last Documented Arterial Blood Pressure 92/52 - Constitutional Constitutional Comment(s): Eye opening on command - Gastrointestinal General gastrointestinal: Present: soft Localized gastrointestinal: surgical scar: diffuse (Incision is intact, clean and dry. MAGNOLIA has scant serosanguineous drainage ostomy is jose red with some light bloody drainage) - Labs CBC & Chem 7: 07/07/22 04:03 07/07/22 04:03 Labs: Abnormal Lab Results - Last 24 Hours (Table) 07/06/22 07/06/22 07/06/22 Range/Units 09:01 10:05 13:10 WBC 12.3 H (3.8-10.6) k/uL RBC 3.05 L (3.80-5.40) m/uL Hgb 9.2 L (11.4-16.0) gm/dL Hct 27.0 L (34.0-46.0) % RDW 18.5 H (11.5-15.5) % Plt Count 64 L D (150-450) k/uL Neutrophils # (Manual) (1.3-7.7) k/uL Metamyelocytes # (Man) (0) k/uL INR 1.2 H (<1.2) APTT 39.6 H (22.0-30.0) sec ABG pH (7.35-7.45) ABG pO2 (83-108) mmHg ABG HCO3 (21-25) mmol/L ABG Total CO2 (19-24) mmol/L ABG O2 Saturation (94-97) % Sodium (137-145) mmol/L BUN (7-17) mg/dL Creatinine (0.52-1.04) mg/dL Glucose (74-99) mg/dL POC Glucose (mg/dL) 112 H (70-110) mg/dL Calcium (8.4-10.2) mg/dL Delta Bilirubin (0.0-0.2) mg/dL AST (14-36) U/L ALT (4-34) U/L Total Protein (6.3-8.2) g/dL Albumin (3.5-5.0) g/dL 07/06/22 07/06/22 07/06/22 Range/Units 14:16 14:40 15:04 WBC (3.8-10.6) k/uL RBC (3.80-5.40) m/uL Hgb (11.4-16.0) gm/dL Hct (34.0-46.0) % RDW (11.5-15.5) % Plt Count (150-450) k/uL Neutrophils # (Manual) (1.3-7.7) k/uL Metamyelocytes # (Man) (0) k/uL INR (<1.2) APTT (22.0-30.0) sec ABG pH (7.35-7.45) ABG pO2 (83-108) mmHg ABG HCO3 (21-25) mmol/L ABG Total CO2 (19-24) mmol/L ABG O2 Saturation (94-97) % Sodium (137-145) mmol/L BUN (7-17) mg/dL Creatinine (0.52-1.04) mg/dL Glucose (74-99) mg/dL POC Glucose (mg/dL) 48 L 57 L 228 H (70-110) mg/dL Calcium (8.4-10.2) mg/dL Delta Bilirubin (0.0-0.2) mg/dL AST (14-36) U/L ALT (4-34) U/L Total Protein (6.3-8.2) g/dL Albumin (3.5-5.0) g/dL 07/06/22 07/06/22 07/06/22 Range/Units 19:25 21:56 23:52 WBC (3.8-10.6) k/uL RBC (3.80-5.40) m/uL Hgb (11.4-16.0) gm/dL Hct (34.0-46.0) % RDW (11.5-15.5) % Plt Count (150-450) k/uL Neutrophils # (Manual) (1.3-7.7) k/uL Metamyelocytes # (Man) (0) k/uL INR (<1.2) APTT (22.0-30.0) sec ABG pH (7.35-7.45) ABG pO2 (83-108) mmHg ABG HCO3 (21-25) mmol/L ABG Total CO2 (19-24) mmol/L ABG O2 Saturation (94-97) % Sodium (137-145) mmol/L BUN (7-17) mg/dL Creatinine (0.52-1.04) mg/dL Glucose (74-99) mg/dL POC Glucose (mg/dL) 114 H 117 H 117 H (70-110) mg/dL Calcium (8.4-10.2) mg/dL Delta Bilirubin (0.0-0.2) mg/dL AST (14-36) U/L ALT (4-34) U/L Total Protein (6.3-8.2) g/dL Albumin (3.5-5.0) g/dL 07/07/22 07/07/22 07/07/22 Range/Units 04:03 04:03 05:20 WBC 12.9 H (3.8-10.6) k/uL RBC 2.86 L (3.80-5.40) m/uL Hgb 8.6 L (11.4-16.0) gm/dL Hct 25.3 L (34.0-46.0) % RDW 18.4 H (11.5-15.5) % Plt Count 43 L (150-450) k/uL Neutrophils # (Manual) 11.00 H (1.3-7.7) k/uL Metamyelocytes # (Man) 0.13 H (0) k/uL INR (<1.2) APTT (22.0-30.0) sec ABG pH 7.46 H (7.35-7.45) ABG pO2 117 H (83-108) mmHg ABG HCO3 28 H (21-25) mmol/L ABG Total CO2 29 H (19-24) mmol/L ABG O2 Saturation 99.2 H (94-97) % Sodium 134 L (137-145) mmol/L BUN 48 H (7-17) mg/dL Creatinine 2.78 H (0.52-1.04) mg/dL Glucose 115 H (74-99) mg/dL POC Glucose (mg/dL) (70-110) mg/dL Calcium 6.5 L (8.4-10.2) mg/dL Delta Bilirubin 0.8 H (0.0-0.2) mg/dL AST 139 H (14-36) U/L ALT 191 H (4-34) U/L Total Protein 3.1 L (6.3-8.2) g/dL Albumin 1.5 L (3.5-5.0) g/dL Microbiology - Last 24 Hours (Table) 07/03/22 14:35 Blood Culture - Preliminary Blood 07/03/22 14:38 Blood Culture - Preliminary Blood 07/03/22 22:37 Gram Stain - Final Sputum Sputum Culture - Final Klebsiella oxytoca Assessment and Plan (1) Abdominal pain Current Visit: Yes Status: Acute Code(s): R10.9 - UNSPECIFIED ABDOMINAL PAIN SNOMED Code(s): 00942885 (2) Ischemic bowel disease Current Visit: Yes Status: Acute Code(s): K55.9 - VASCULAR DISORDER OF INTESTINE, UNSPECIFIED SNOMED Code(s): 88245163 (3) Renal insufficiency Current Visit: No Status: Acute Code(s): N28.9 - DISORDER OF KIDNEY AND URETER, UNSPECIFIED SNOMED Code(s): 510676933 (4) Shock liver Current Visit: Yes Status: Acute Code(s): K72.00 - ACUTE AND SUBACUTE HEPATIC FAILURE WITHOUT COMA SNOMED Code(s): 378679854 (5) Coagulopathy Current Visit: Yes Status: Acute Code(s): D68.9 - COAGULATION DEFECT, UNSPECIFIED SNOMED Code(s): 86483977 (6) Thrombocytopenia Current Visit: Yes Status: Acute Code(s): D69.6 - THROMBOCYTOPENIA, UNSPECIFIED SNOMED Code(s): 607994185 Plan: Patient has a little bloody drainage from her ostomy. We will check her PTT and correct that if necessary. She has been started on low-dose TPN. She is okay from a surgical standpoint to start a beta-tasha via NG for the SVT. Progressing slowly
[2022-07-07] MEDS ORDERED: FUROSEMIDE 10 MG/ML 10 ML VIAL IV STA (09:14)
[2022-07-07] MEDS: MEROPENEM 500 MG in SODIUM CHLORIDE 0.9% 100 ML IVPB SCH (09:22)
[2022-07-07] MEDS: PANTOPRAZOLE 40 MG/10 ML VIAL IVP SCH (09:22)
[2022-07-07] MEDS: CHLORHEXIDINE GLUCONATE 15 ML CUP MUCOUS MEM SCH (09:23)
[2022-07-07 11:33] LABS: Glucose,Whole Blood 88 mg/dL (70-110)
--- NOTE | 2022-07-07 11:34 | P.PN ---
Subjective Progress Note Date: 07/07/22 [facility] progressHospital Course: 81-year-old female with history of IBS, hypothyroidism, depression, gout, anxiety presenting with acute abdominal pain. In the ED, temperature 97.5, pulse 85, respiratory rate 19, blood pressure 93/64, saturating at 99% on room air. WBC 10.6, sodium 134, potassium 5.1, bicarb 15, creatinine 2.07, glucose 222, AST 48, ALT 39, troponin 0.012. 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 EKG showed normal sinus rhythm, right bundle branch block. Chest x- ray showed no acute process. Patient admitted for abdominal pain, nausea vomiting, possible ileus. Surgery consulted. In the ER, patient had a syncopal episode. A,, patient clearly has signs of severe sepsis, lactate is trending up, severe leukocytosis with bandemia. Likely source is abdomen. On broad- spectrum antibiotics, also has worsening acute kidney injury. For acidosis, started on IV sodium bicarbonate. Patient continued to worsen, and septic and hypovolemic shock. She was taken emergently for surgery. She had exploratory laparoscopy with segmental small bowel resection, was noted to have bowel ischemia. Currently she is intubated and sedated in the medical ICU. She had temp dialysis catheter placed and was started on iHD. Had second look operation on 07/05, had necrotic bowel removed and had ileostomy placement. Pt continued to have blood loss and thrombocytopenia issues. Subjective: Patient seen and examined at bedside. No acute events overnight. Currently intubated and sedated. Pertinent positives and negatives as discussed above, a complete review of systems was performed and all other systems are negative. Vitals Signs Reviewed. General: Intubated and sedated Derm: warm, dry Head: atraumatic, normocephalic, symmetric Eyes: pupils equal round reactive to light ENT: Nose and ears atraumatic Neck: No thyromegaly, supple Mouth: no lip lesion, mucus membranes moist Cardiovascular: S1S2 reg, tachycardic, no murmur, no edema Lungs: clear to auscultation bilateral, no rhonchi, no rales, no wheeze, no accessory muscle use, intubated Abdominal: soft, has a wound VAC, nondistended, ostomy in place, ET tube Ext: no gross muscle atrophy, no contractures Neuro: Sedated Psych: Unable to assess Data Reviewed Today: Pertinent Labs: WBC 12.9, hemoglobin 8.6, platelet 43, sodium 134, creatinine 2.78, AST 139, ALT 191, TSH 11.1 Imaging: Chest x-ray independently interpreted, possible left basilar opacity Assessment and Plan: Septic shock Bowel ischemia Ischemic hepatitis Mechanical ventilation Acute kidney injury on chronic kidney disease, now requiring dialysis Hypocalcemia Lactic acidosis High anion gap metabolic acidosis Possible cirrhosis Right bundle branch block Elevated TSH -Surgery note reviewed, started on TPN -[employer] following, continue meropenem and Flagyl, given 80 mg IV Lasix -Transaminitis improving -Nephrology following, 2 g IV calcium gluconate given this morning, -Currently on normal saline IV 50 mL an hour -Possibly has euthyroid sick syndrome -Patient is critically ill, in medical ICU. Resolved: Hyperkalemia DVT ppx: SCDs Code status: Full code Anticipated discharge place: Pending clinical course Anticipated discharge time: Pending clinical course Objective - Vital Signs Vital signs: Vital Signs Temp 98.6 F 07/07/22 10:12 Pulse 98 07/07/22 11:03 Resp 26 H 07/07/22 11:00 BP 103/49 07/07/22 10:32 Pulse Ox 100 07/07/22 11:00 FiO2 40 07/07/22 11:07 Intake & Output 07/06/22 07/07/22 07/07/22 18:59 06:59 18:59 Intake Total 3996.645 7756.221 406.287 Output Total 1075 620 5 Balance 179.851 380.221 401.287 Weight 69.1 kg 68.7 kg Intake: IV 710 960 300 Calcium Gluconate in NaCl 100 2 gm In Saline 1 100ml. bag @ 100 mls/hr IVPB ONCE ONE Rx#:[id number] Desmopressin Acetate 16 50 mcg In Sodium Chloride 0. 9% 50 ml @ 200 mls/hr IVPB ONCE ONE Rx#: [id number] Meropenem 500 mg In 100 Sodium Chloride 0.9% 100 ml @ 33.3 mls/hr IVPB Q24HR [facility] Rx#:[id number] Mvi, Adult No.4 with Vit 60 360 30 K 10 ml Trace (Conc-1Ml/ Dose) 1 ml Sodium Acetate 30 meq Magnesium Sulfate gm 1 gm Calcium Gluconate 2 gm In Amino Acid 5%-D15w 1,000 ml @ 30 mls/hr IV .Q24H [facility] Rx #:[id number] Sodium Chloride 0.9% 1, 500 600 170 000 ml @ 50 mls/hr IV . Q20H [facility] Rx#:[id number] Intake, IV Titration 75.851 40.221 106.287 Amount Meropenem 500 mg In 99.9 Sodium Chloride 0.9% 100 ml @ 33.3 mls/hr IVPB Q24HR [facility] Rx#:[id number] Norepinephrine 32 mg In 15.103 15.859 1.431 Sodium Chloride 0.9% 218 ml @ 0.05 MCG/KG/MIN 1. 223 mls/hr IV .Q24H [facility] Rx#:[id number] propofoL 1,000 mg In 60.748 24.362 4.956 Empty Bag 1 bag @ 15 MCG/ KG/MIN 4.695 mls/hr IV . [id number] [facility] Rx#:[id number] Blood Product 269 0 Platelet Pheresis Pas 0 Psoralen Unit [id number] Platelet Pheresis Pas 269 Psoralen Unit [id number] Hemodialysis 200 Output: Gastric Drainage 500 Drainage 260 100 Medial Abdomen 260 100 Urine 15 20 5 Hemodialysis 800 Other: Voiding Method Indwelling Catheter Indwelling Catheter Indwelling Catheter ABP, PAP, CO, CI - Last Documented Arterial Blood Pressure 119/50 - Labs CBC & Chem 7: 07/07/22 04:03 07/07/22 04:03 Labs: Abnormal Lab Results - Last 24 Hours (Table) 07/06/22 07/06/22 07/06/22 Range/Units 13:10 14:16 14:40 WBC 12.3 H (3.8-10.6) k/uL RBC 3.05 L (3.80-5.40) m/uL Hgb 9.2 L (11.4-16.0) gm/dL Hct 27.0 L (34.0-46.0) % RDW 18.5 H (11.5-15.5) % Plt Count 64 L D (150-450) k/uL Neutrophils # (Manual) (1.3-7.7) k/uL Metamyelocytes # (Man) (0) k/uL APTT (22.0-30.0) sec ABG pH (7.35-7.45) ABG pO2 (83-108) mmHg ABG HCO3 (21-25) mmol/L ABG Total CO2 (19-24) mmol/L ABG O2 Saturation (94-97) % Sodium (137-145) mmol/L BUN (7-17) mg/dL Creatinine (0.52-1.04) mg/dL Glucose (74-99) mg/dL POC Glucose (mg/dL) 48 L 57 L (70-110) mg/dL Calcium (8.4-10.2) mg/dL Delta Bilirubin (0.0-0.2) mg/dL AST (14-36) U/L ALT (4-34) U/L Total Protein (6.3-8.2) g/dL Albumin (3.5-5.0) g/dL TSH (0.465-4.680) mIU/L 07/06/22 07/06/22 07/06/22 Range/Units 15:04 19:25 21:56 WBC (3.8-10.6) k/uL RBC (3.80-5.40) m/uL Hgb (11.4-16.0) gm/dL Hct (34.0-46.0) % RDW (11.5-15.5) % Plt Count (150-450) k/uL Neutrophils # (Manual) (1.3-7.7) k/uL Metamyelocytes # (Man) (0) k/uL APTT (22.0-30.0) sec ABG pH (7.35-7.45) ABG pO2 (83-108) mmHg ABG HCO3 (21-25) mmol/L ABG Total CO2 (19-24) mmol/L ABG O2 Saturation (94-97) % Sodium (137-145) mmol/L BUN (7-17) mg/dL Creatinine (0.52-1.04) mg/dL Glucose (74-99) mg/dL POC Glucose (mg/dL) 228 H 114 H 117 H (70-110) mg/dL Calcium (8.4-10.2) mg/dL Delta Bilirubin (0.0-0.2) mg/dL AST (14-36) U/L ALT (4-34) U/L Total Protein (6.3-8.2) g/dL Albumin (3.5-5.0) g/dL TSH (0.465-4.680) mIU/L 07/06/22 07/07/22 07/07/22 Range/Units 23:52 04:03 04:03 WBC 12.9 H (3.8-10.6) k/uL RBC 2.86 L (3.80-5.40) m/uL Hgb 8.6 L (11.4-16.0) gm/dL Hct 25.3 L (34.0-46.0) % RDW 18.4 H (11.5-15.5) % Plt Count 43 L (150-450) k/uL Neutrophils # (Manual) 11.00 H (1.3-7.7) k/uL Metamyelocytes # (Man) 0.13 H (0) k/uL APTT (22.0-30.0) sec ABG pH (7.35-7.45) ABG pO2 (83-108) mmHg ABG HCO3 (21-25) mmol/L ABG Total CO2 (19-24) mmol/L ABG O2 Saturation (94-97) % Sodium 134 L (137-145) mmol/L BUN 48 H (7-17) mg/dL Creatinine 2.78 H (0.52-1.04) mg/dL Glucose 115 H (74-99) mg/dL POC Glucose (mg/dL) 117 H (70-110) mg/dL Calcium 6.5 L (8.4-10.2) mg/dL Delta Bilirubin 0.8 H (0.0-0.2) mg/dL AST 139 H (14-36) U/L ALT 191 H (4-34) U/L Total Protein 3.1 L (6.3-8.2) g/dL Albumin 1.5 L (3.5-5.0) g/dL TSH (0.465-4.680) mIU/L 07/07/22 07/07/22 07/07/22 Range/Units 04:03 05:20 09:00 WBC (3.8-10.6) k/uL RBC (3.80-5.40) m/uL Hgb (11.4-16.0) gm/dL Hct (34.0-46.0) % RDW (11.5-15.5) % Plt Count (150-450) k/uL Neutrophils # (Manual) (1.3-7.7) k/uL Metamyelocytes # (Man) (0) k/uL APTT 34.2 H (22.0-30.0) sec ABG pH 7.46 H (7.35-7.45) ABG pO2 117 H (83-108) mmHg ABG HCO3 28 H (21-25) mmol/L ABG Total CO2 29 H (19-24) mmol/L ABG O2 Saturation 99.2 H (94-97) % Sodium (137-145) mmol/L BUN (7-17) mg/dL Creatinine (0.52-1.04) mg/dL Glucose (74-99) mg/dL POC Glucose (mg/dL) (70-110) mg/dL Calcium (8.4-10.2) mg/dL Delta Bilirubin (0.0-0.2) mg/dL AST (14-36) U/L ALT (4-34) U/L Total Protein (6.3-8.2) g/dL Albumin (3.5-5.0) g/dL TSH 11.100 H (0.465-4.680) mIU/L Microbiology - Last 24 Hours (Table) 07/03/22 14:35 Blood Culture - Preliminary Blood 07/03/22 14:38 Blood Culture - Preliminary Blood 07/03/22 22:37 Gram Stain - Final Sputum Sputum Culture - Final Klebsiella oxytoca
[2022-07-07] MEDS ORDERED: DESMOPRESSIN ACETATE 20 MCG in SODIUM CHLORIDE 0.9% 50 ML IVPB ONE (11:50)
--- NOTE | 2022-07-07 11:51 | P.PN ---
Subjective Patient is seen in follow-up for acute kidney injury on chronic kidney disease. Oliguric. Underwent small bowel resection 07/03/2022 and another surgery with segmental small bowel resection, formation of ileostomy with mucous fistula and placement of PEG tube 07/05/2022.. Intubated. Patient has been bleeding from the ileostomy site and has received blood transfusions as well as platelets and FFP. Also received IV DDAVP. Vital signs - afebrile. Tachycardic. General: Resting in bed. HEENT: Intubated. NG tube noted. LUNGS: Scattered rhonchi. HEART: Tachycardic. ABDOMEN: Ileostomy and PEG tube noted. Bleeding from ileostomy site noted. EXTREMITITES: No edema. Objective - Vital Signs Vital signs: Vital Signs Temp 98.6 F 07/07/22 10:12 Pulse 98 07/07/22 11:03 Resp 26 H 07/07/22 11:00 BP 103/49 07/07/22 10:32 Pulse Ox 100 07/07/22 11:00 FiO2 40 07/07/22 11:07 Intake & Output 07/06/22 07/07/22 07/07/22 18:59 06:59 18:59 Intake Total 0297.697 8890.221 406.287 Output Total 1075 620 5 Balance 179.851 380.221 401.287 Weight 69.1 kg 68.7 kg Intake: IV 710 960 300 Calcium Gluconate in NaCl 100 2 gm In Saline 1 100ml. bag @ 100 mls/hr IVPB ONCE ONE Rx#:[id number] Desmopressin Acetate 16 50 mcg In Sodium Chloride 0. 9% 50 ml @ 200 mls/hr IVPB ONCE ONE Rx#: [id number] Meropenem 500 mg In 100 Sodium Chloride 0.9% 100 ml @ 33.3 mls/hr IVPB Q24HR [facility] Rx#:[id number] Mvi, Adult No.4 with Vit 60 360 30 K 10 ml Trace (Conc-1Ml/ Dose) 1 ml Sodium Acetate 30 meq Magnesium Sulfate gm 1 gm Calcium Gluconate 2 gm In Amino Acid 5%-D15w 1,000 ml @ 30 mls/hr IV .Q24H [facility] Rx #:[id number] Sodium Chloride 0.9% 1, 500 600 170 000 ml @ 50 mls/hr IV . Q20H [facility] Rx#:[id number] Intake, IV Titration 75.851 40.221 106.287 Amount Meropenem 500 mg In 99.9 Sodium Chloride 0.9% 100 ml @ 33.3 mls/hr IVPB Q24HR [facility] Rx#:[id number] Norepinephrine 32 mg In 15.103 15.859 1.431 Sodium Chloride 0.9% 218 ml @ 0.05 MCG/KG/MIN 1. 223 mls/hr IV .Q24H [facility] Rx#:[id number] propofoL 1,000 mg In 60.748 24.362 4.956 Empty Bag 1 bag @ 15 MCG/ KG/MIN 4.695 mls/hr IV . [id number] [facility] Rx#:[id number] Blood Product 269 0 Platelet Pheresis Pas 0 Psoralen Unit [id number] Platelet Pheresis Pas 269 Psoralen Unit [id number] Hemodialysis 200 Output: Gastric Drainage 500 Drainage 260 100 Medial Abdomen 260 100 Urine 15 20 5 Hemodialysis 800 Other: Voiding Method Indwelling Catheter Indwelling Catheter Indwelling Catheter ABP, PAP, CO, CI - Last Documented Arterial Blood Pressure 119/50 - Labs CBC & Chem 7: 07/07/22 04:03 07/07/22 04:03 Labs: Abnormal Lab Results - Last 24 Hours (Table) 07/06/22 07/06/22 07/06/22 Range/Units 13:10 14:16 14:40 WBC 12.3 H (3.8-10.6) k/uL RBC 3.05 L (3.80-5.40) m/uL Hgb 9.2 L (11.4-16.0) gm/dL Hct 27.0 L (34.0-46.0) % RDW 18.5 H (11.5-15.5) % Plt Count 64 L D (150-450) k/uL Neutrophils # (Manual) (1.3-7.7) k/uL Metamyelocytes # (Man) (0) k/uL APTT (22.0-30.0) sec ABG pH (7.35-7.45) ABG pO2 (83-108) mmHg ABG HCO3 (21-25) mmol/L ABG Total CO2 (19-24) mmol/L ABG O2 Saturation (94-97) % Sodium (137-145) mmol/L BUN (7-17) mg/dL Creatinine (0.52-1.04) mg/dL Glucose (74-99) mg/dL POC Glucose (mg/dL) 48 L 57 L (70-110) mg/dL Calcium (8.4-10.2) mg/dL Delta Bilirubin (0.0-0.2) mg/dL AST (14-36) U/L ALT (4-34) U/L Total Protein (6.3-8.2) g/dL Albumin (3.5-5.0) g/dL TSH (0.465-4.680) mIU/L 07/06/22 07/06/22 07/06/22 Range/Units 15:04 19:25 21:56 WBC (3.8-10.6) k/uL RBC (3.80-5.40) m/uL Hgb (11.4-16.0) gm/dL Hct (34.0-46.0) % RDW (11.5-15.5) % Plt Count (150-450) k/uL Neutrophils # (Manual) (1.3-7.7) k/uL Metamyelocytes # (Man) (0) k/uL APTT (22.0-30.0) sec ABG pH (7.35-7.45) ABG pO2 (83-108) mmHg ABG HCO3 (21-25) mmol/L ABG Total CO2 (19-24) mmol/L ABG O2 Saturation (94-97) % Sodium (137-145) mmol/L BUN (7-17) mg/dL Creatinine (0.52-1.04) mg/dL Glucose (74-99) mg/dL POC Glucose (mg/dL) 228 H 114 H 117 H (70-110) mg/dL Calcium (8.4-10.2) mg/dL Delta Bilirubin (0.0-0.2) mg/dL AST (14-36) U/L ALT (4-34) U/L Total Protein (6.3-8.2) g/dL Albumin (3.5-5.0) g/dL TSH (0.465-4.680) mIU/L 07/06/22 07/07/22 07/07/22 Range/Units 23:52 04:03 04:03 WBC 12.9 H (3.8-10.6) k/uL RBC 2.86 L (3.80-5.40) m/uL Hgb 8.6 L (11.4-16.0) gm/dL Hct 25.3 L (34.0-46.0) % RDW 18.4 H (11.5-15.5) % Plt Count 43 L (150-450) k/uL Neutrophils # (Manual) 11.00 H (1.3-7.7) k/uL Metamyelocytes # (Man) 0.13 H (0) k/uL APTT (22.0-30.0) sec ABG pH (7.35-7.45) ABG pO2 (83-108) mmHg ABG HCO3 (21-25) mmol/L ABG Total CO2 (19-24) mmol/L ABG O2 Saturation (94-97) % Sodium 134 L (137-145) mmol/L BUN 48 H (7-17) mg/dL Creatinine 2.78 H (0.52-1.04) mg/dL Glucose 115 H (74-99) mg/dL POC Glucose (mg/dL) 117 H (70-110) mg/dL Calcium 6.5 L (8.4-10.2) mg/dL Delta Bilirubin 0.8 H (0.0-0.2) mg/dL AST 139 H (14-36) U/L ALT 191 H (4-34) U/L Total Protein 3.1 L (6.3-8.2) g/dL Albumin 1.5 L (3.5-5.0) g/dL TSH (0.465-4.680) mIU/L 07/07/22 07/07/22 07/07/22 Range/Units 04:03 05:20 09:00 WBC (3.8-10.6) k/uL RBC (3.80-5.40) m/uL Hgb (11.4-16.0) gm/dL Hct (34.0-46.0) % RDW (11.5-15.5) % Plt Count (150-450) k/uL Neutrophils # (Manual) (1.3-7.7) k/uL Metamyelocytes # (Man) (0) k/uL APTT 34.2 H (22.0-30.0) sec ABG pH 7.46 H (7.35-7.45) ABG pO2 117 H (83-108) mmHg ABG HCO3 28 H (21-25) mmol/L ABG Total CO2 29 H (19-24) mmol/L ABG O2 Saturation 99.2 H (94-97) % Sodium (137-145) mmol/L BUN (7-17) mg/dL Creatinine (0.52-1.04) mg/dL Glucose (74-99) mg/dL POC Glucose (mg/dL) (70-110) mg/dL Calcium (8.4-10.2) mg/dL Delta Bilirubin (0.0-0.2) mg/dL AST (14-36) U/L ALT (4-34) U/L Total Protein (6.3-8.2) g/dL Albumin (3.5-5.0) g/dL TSH 11.100 H (0.465-4.680) mIU/L Microbiology - Last 24 Hours (Table) 07/03/22 14:35 Blood Culture - Preliminary Blood 07/03/22 14:38 Blood Culture - Preliminary Blood 07/03/22 22:37 Gram Stain - Final Sputum Sputum Culture - Final Klebsiella oxytoca Assessment and Plan Plan: Assessment: 1. Acute kidney injury secondary to ATN secondary to hypotension/septic shock. Creatinine peaked at 3.93 this admission. Oliguric. No hydronephrosis noted on CAT scan. Started on hemodialysis 07/04/2022. Has a femoral catheter. 2. Chronic kidney disease stage IV with baseline creatinine near 2 secondary to nephrosclerosis. 3. Metabolic acidosis secondary to acute kidney injury and lactic acidosis s/p bicarbonate drip. Improved. 4. Hyperkalemia secondary to acute kidney injury, acidosis. Improved with medical management and HD. 5. Small bowel obstruction with ischemic bowel status post exploratory laparotomy with segmental small bowel resection 07/03/2022. Underwent another exploratory laparotomy with segmental small bowel resection, ileostomy formation and PEG tube placement 07/05/2022. 6. Hypocalcemia secondary to acute kidney injury. Replaced. 7. Acute blood loss anemia status post blood transfusions, FFP and platelets. Also received IV DDAVP. Plan: Normal saline 50 mL an hour for maintenance fluids. Avoid nephrotoxins. Wean FiO2 and vasopressors. Hold off on HD today - reassess tomorrow. Repeat DDAVP IV 1 today. S/p IV lasix this AM.
[2022-07-07 11:53] LABS: T4, Free (Free Thyroxine) 0.62 ng/dL (0.78-2.19)
--- NOTE | 2022-07-07 12:42 | P.PN ---
Subjective Progress Note Date: 07/07/22 Principal diagnosis: Postoperative day #3 status post exploratory laparotomy with segmental bowel resection for small bowel obstruction I'm seeing this patient in new consultation today 07/04/2022 for ICU management post exploratory laparotomy and segmental small bowel resection for a small bowel obstruction. Patient is a 81-year-old white female with past medical history significant for irritable bowel syndrome, peptic ulcers with previous anemia and PRBC transfusions, GERD, hiatal hernia, chronic kidney disease stage IV, hypothyroidism, hypertension. Patient presented to the emergency room on July 02 with a chief complaint of abdominal pain, nausea, and vomiting for approximately one day. Patient reportedly had a bowel movement the day prior. A follow-up CT of the abdomen and pelvis without contrast showed fluid-filled prominent small bowel loops within the pelvis that could correlate for ileus. A low-grade small bowel obstruction was felt to be less likely at that time. There was also some ascites, and a small lobular liver. NG tube was originally inserted for gastric decompression, and the patient was observed overnight. The patient's condition progressively worsened, and was taken to surgery yesterday. Patient underwent an exploratory laparotomy with segmental small bowel resection. The abdomen was left open, and a wound VAC was applied. Postoperatively, the patient was left on the mechanical ventilator, and is currently in the intensive care unit. She is synchronous with the ventilator. Initial ventilator settings were assist control, respiratory rate 14, tidal volume 350, FiO2 100%, and a PEEP of 5. Initial chest x-ray showed the en dotracheal tube 2.4 cm from the amanda, NG tube was seen within the stomach, and there was some pulmonary vascular congestion without overt heart failure. Initial ABG on these settings showed a pO2 of 262, pCO2 of 50, pH of 7.12. Respiratory rate was increased to 26, tidal volume was increased to 400, and FiO2 reduced to 40%. A follow-up ABG showed a pO2 of 134, pCO2 of 34, and pH is 7.24. Propofol infusing at 15 mics per kilogram per minute for sedation. Patient was given 3 A of sodium bicarb and started on a sodium bicarb infusion 3 amps in D5W at 125 ML's per hour. There was an acute drop in hemoglobin from 10.8 g/dL preoperatively to 5.5 g/dL postoperatively. Patient is currently receiving 2 units PRBC transfusion. Patient was also fluid resuscitated with a total of 4 L normal saline. Patient's hypotension was refractory to fluid resuscitation, and was subsequently started on a norepinephrine infusion which is currently infusing at 0.12 mics per kilogram per minute through a right IJ double-lumen central line catheter. NG tube has a small amount of brown-green bilious nilton inage. Most recent CBC shows a WBC count of 4.8, hemoglobin 5.5, hematocrit 18.4, platelets 113,000. Most recent BMP postoperatively shows a sodium of 137, potassium 6.7, chloride 115, serum CO2 10, BUN 76, creatinine 4.14, glucose 96. Patient's hyperkalemia was treated with 8 units of insulin, an amp of D50W, 2 g of calcium gluconate, as well as the as the above-mentioned sodium bicarbonate. Patient has a component of acute on chronic kidney injury, and is currently anuric. Patient's lactic was also 6.6, and this will be rechecked. LFTs are mildly elevated. Patient was started on empiric Zosyn. The plan per surgical services, is to take the patient back to the operating room on Monday, once more hemodynamically stable. Shunt was reevaluated today on 07/05/2022, remains in the ICU, intubated and mechanically ventilated. Patient is on assist control rate of 26 tidal volume 400 FiO2 40% PEEP of 5 ABG showed a pO2 of 99 pCO2 39 pH of 7.43, hence no vent changes were made. Patient is on norepinephrine at 0.18 mcg/kg/m propofol at 10 mcg/kg/m she is also on bicarb drip which I have discontinued today, patient received dialysis last night. She is scheduled to have reexploration today and possibly closure of her abdominal incision sometime later today. Hence no plans to hold sedation or assess weaning at this point since the patient is going back to surgery. Chest x-ray showed mostly small left pleural effusion and atelectasis minimal increased interstitial densities. Labs were reviewed her WBC count is 9 hemoglobin 11.2. Platelets are 78,000 basic metabolic profile is normal however her BUN is 58 creatinine 3.03. Her enzymes remain elevated with AST of 419 ALT of 393. Antibiotics reno, patient is on Merrem and she is also on metronidazole. Patient was reevaluated today on 07/06/2022, remains intubated and mechanically ventilated. On 5/16/yesterday patient underwent another exploratory laparotomy segmental small bowel resection, formation of ileostomy with mucous fistula placement of feeding tube and MAGNOLIA drain. Postoperatively patient was sent back to the ICU. She is now on assist control rate of 26 tidal volume 400 FiO2 40% and PEEP of 5 ABG showed a pO2 of 117 pCO2 44 pH of 7.38. Patient is still requiring propofol at 10 mcg/kg/m and norepinephrine at 0.06 mcg/kg/m IV fluid is 0.9 normal saline at 50 mL an hour. Patient is undergoing intermittent hemodialysis. She had some intermittent bleeding at the surgical site, and she received so far a total of 4 units of packed RBCs, 2 units of fresh was a plasma and 1 unit of platelets. Chest x-ray showed small left pleural effusion and atelectasis. WBC count today is 8.7 hemoglobin is 9.1, electrolytes are normal renal profile showed a BUN of 59 and creatinine of 3.2, calcium is up to 6.7 l iver enzymes are improving compared to levels in the last few days definitely better and improved Reevaluated today on 07/07/2022, patient remains in the ICU, intubated and mechanically ventilated. She is on assist control rate of 26 tidal volume 400 FiO2 40% and PEEP of 5 ABG showed a pO2 of 117 pCO2 39 pH of 7.46 as I cut down her FiO2 to 35%. Patient is on propofol at 5 mcg/kg/m TPN at 30 mL per hour, she is also on norepinephrine at 0.02 mcg/m and IV fluid at 20 mL per hour. Patient had her last hemodialysis on 07/06 and removed 800 mL of fluid. Patient continues to have very low platelets in the 43,000 range, and I'm recommending 2 units of platelets and the patient is having bleeding into the ostomy bag patient has received a total of 4 units of packed RBCs units of fresh frozen plasma and 1 unit of platelets since admission. Clinically the patient extremely frail and weak, nonetheless she is arousable, opens her eyes, follows simple instructions seems to be very frail and weak. Discontinue propofol gave her a very short trial of pressure support of 14 and CPAP, however the patient was not moving enough tidal volume to continue with the weaning trial I believe the patient needs to be a bit more awake before we could proceed any further. In the meantime I have her off propofol completely. Antibiotics reno she remains on Merrem and Flagyl. Sputum culture has been positive for Klebsiella oxytoca, and that is well covered by Merrem on board. Patient continues to have a relatively low calcium however correcting her corrected calcium to her low albumin is actually in the range of 9-9.5, and there is no reason to continue giving the patient calcium gluconate for a calcium of 6.5 or higher her thyroid profile today showed elevated TSH and low T4 consistent with hypothyroidism, patient is on levothyroxine at 75 g, will increase the dose to 100. Chest x- ray showed left lower lobe atelectasis and possibly a small left pleural effusion. Objective - Vital Signs Vital signs: Vital Signs Temp 98.9 F 07/07/22 12:23 Pulse 103 H 07/07/22 12:23 Resp 26 H 07/07/22 12:23 BP 126/56 07/07/22 12:23 Pulse Ox 100 07/07/22 12:15 FiO2 40 07/07/22 12:00 Intake & Output 07/06/22 07/07/22 07/07/22 18:59 06:59 18:59 Intake Total 4848.828 7824.221 898.287 Output Total 1075 620 10 Balance 179.851 380.221 888.287 Weight 69.1 kg 68.7 kg Intake: IV 710 960 330 Calcium Gluconate in NaCl 100 2 gm In Saline 1 100ml. bag @ 100 mls/hr IVPB ONCE ONE Rx#:[id number] Desmopressin Acetate 16 50 mcg In Sodium Chloride 0. 9% 50 ml @ 200 mls/hr IVPB ONCE ONE Rx#: [id number] Meropenem 500 mg In 100 Sodium Chloride 0.9% 100 ml @ 33.3 mls/hr IVPB Q24HR [facility] Rx#:[id number] Mvi, Adult No.4 with Vit 60 360 30 K 10 ml Trace (Conc-1Ml/ Dose) 1 ml Sodium Acetate 30 meq Magnesium Sulfate gm 1 gm Calcium Gluconate 2 gm In Amino Acid 5%-D15w 1,000 ml @ 30 mls/hr IV .Q24H [facility] Rx #:[id number] Sodium Chloride 0.9% 1, 500 600 200 000 ml @ 50 mls/hr IV . Q20H [facility] Rx#:[id number] Intake, IV Titration 75.851 40.221 206.287 Amount Meropenem 500 mg In 99.9 Sodium Chloride 0.9% 100 ml @ 33.3 mls/hr IVPB Q24HR [facility] Rx#:[id number] Norepinephrine 32 mg In 15.103 15.859 1.431 Sodium Chloride 0.9% 218 ml @ 0.05 MCG/KG/MIN 1. 223 mls/hr IV .Q24H [facility] Rx#:[id number] metroNIDAZOLE-NS PMX 500 100 mg In Saline 1 100ml.bag @ 100 mls/hr IVPB Q8H [facility] Rx#:[id number] propofoL 1,000 mg In 60.748 24.362 4.956 Empty Bag 1 bag @ 15 MCG/ KG/MIN 4.695 mls/hr IV . [id number] [facility] Rx#:[id number] Blood Product 269 362 Platelet Pheresis Pas 0 Psoralen Unit [id number] Platelet Pheresis Pas 362 Psoralen Unit [id number] Platelet Pheresis Pas 269 Psoralen Unit [id number] Hemodialysis 200 Output: Gastric Drainage 500 Drainage 260 100 Medial Abdomen 260 100 Urine 15 20 10 Hemodialysis 800 Other: Voiding Method Indwelling Catheter Indwelling Catheter Indwelling Catheter ABP, PAP, CO, CI - Last Documented Arterial Blood Pressure 111/48 - Exam GENERAL EXAM: Revealed an 81-year-old female, sedated, but arousable and follows very simple instructions HEAD: Normocephalic and atraumatic HEENT: PERRLA, EOMI, nonicteric, neck masses no JVD, nasogastric tube and endotracheal tube are intact. CHEST: No chest wall deformity. LUNGS: Diminished breath sounds at the bases minimal crackles at the bases. CVS: S1 and S2 normal with no audible murmur, regular rhythm. No extra heart sounds. Heart rate 116 bpm ABDOMEN: Postsurgical ileostomy is noted, serosanguineous drainage noted in the ostomy bag. feeding tube is noted, and MAGNOLIA drains are noted SKIN: No rashes. CENTRAL NERVOUS SYSTEM: Arousable, generally weak, frail looking, however follows very simple instructions but very weak EXTREMITIES: Trace of bipedal edema noted. Diminished distal pulses - Labs CBC & Chem 7: 07/07/22 04:03 07/07/22 04:03 Labs: Abnormal Lab Results - Last 24 Hours (Table) 07/06/22 07/06/22 07/06/22 Range/Units 13:10 14:16 14:40 WBC 12.3 H (3.8-10.6) k/uL RBC 3.05 L (3.80-5.40) m/uL Hgb 9.2 L (11.4-16.0) gm/dL Hct 27.0 L (34.0-46.0) % RDW 18.5 H (11.5-15.5) % Plt Count 64 L D (150-450) k/uL Neutrophils # (Manual) (1.3-7.7) k/uL Metamyelocytes # (Man) (0) k/uL APTT (22.0-30.0) sec ABG pH (7.35-7.45) ABG pO2 (83-108) mmHg ABG HCO3 (21-25) mmol/L ABG Total CO2 (19-24) mmol/L ABG O2 Saturation (94-97) % Sodium (137-145) mmol/L BUN (7-17) mg/dL Creatinine (0.52-1.04) mg/dL Glucose (74-99) mg/dL POC Glucose (mg/dL) 48 L 57 L (70-110) mg/dL Calcium (8.4-10.2) mg/dL Delta Bilirubin (0.0-0.2) mg/dL AST (14-36) U/L ALT (4-34) U/L Total Protein (6.3-8.2) g/dL Albumin (3.5-5.0) g/dL TSH (0.465-4.680) mIU/L Free T4 (0.78-2.19) ng/dL 07/06/22 07/06/22 07/06/22 Range/Units 15:04 19:25 21:56 WBC (3.8-10.6) k/uL RBC (3.80-5.40) m/uL Hgb (11.4-16.0) gm/dL Hct (34.0-46.0) % RDW (11.5-15.5) % Plt Count (150-450) k/uL Neutrophils # (Manual) (1.3-7.7) k/uL Metamyelocytes # (Man) (0) k/uL APTT (22.0-30.0) sec ABG pH (7.35-7.45) ABG pO2 (83-108) mmHg ABG HCO3 (21-25) mmol/L ABG Total CO2 (19-24) mmol/L ABG O2 Saturation (94-97) % Sodium (137-145) mmol/L BUN (7-17) mg/dL Creatinine (0.52-1.04) mg/dL Glucose (74-99) mg/dL POC Glucose (mg/dL) 228 H 114 H 117 H (70-110) mg/dL Calcium (8.4-10.2) mg/dL Delta Bilirubin (0.0-0.2) mg/dL AST (14-36) U/L ALT (4-34) U/L Total Protein (6.3-8.2) g/dL Albumin (3.5-5.0) g/dL TSH (0.465-4.680) mIU/L Free T4 (0.78-2.19) ng/dL 07/06/22 07/07/22 07/07/22 Range/Units 23:52 04:03 04:03 WBC 12.9 H (3.8-10.6) k/uL RBC 2.86 L (3.80-5.40) m/uL Hgb 8.6 L (11.4-16.0) gm/dL Hct 25.3 L (34.0-46.0) % RDW 18.4 H (11.5-15.5) % Plt Count 43 L (150-450) k/uL Neutrophils # (Manual) 11.00 H (1.3-7.7) k/uL Metamyelocytes # (Man) 0.13 H (0) k/uL APTT (22.0-30.0) sec ABG pH (7.35-7.45) ABG pO2 (83-108) mmHg ABG HCO3 (21-25) mmol/L ABG Total CO2 (19-24) mmol/L ABG O2 Saturation (94-97) % Sodium 134 L (137-145) mmol/L BUN 48 H (7-17) mg/dL Creatinine 2.78 H (0.52-1.04) mg/dL Glucose 115 H (74-99) mg/dL POC Glucose (mg/dL) 117 H (70-110) mg/dL Calcium 6.5 L (8.4-10.2) mg/dL Delta Bilirubin 0.8 H (0.0-0.2) mg/dL AST 139 H (14-36) U/L ALT 191 H (4-34) U/L Total Protein 3.1 L (6.3-8.2) g/dL Albumin 1.5 L (3.5-5.0) g/dL TSH (0.465-4.680) mIU/L Free T4 (0.78-2.19) ng/dL 07/07/22 07/07/22 07/07/22 Range/Units 04:03 05:20 09:00 WBC (3.8-10.6) k/uL RBC (3.80-5.40) m/uL Hgb (11.4-16.0) gm/dL Hct (34.0-46.0) % RDW (11.5-15.5) % Plt Count (150-450) k/uL Neutrophils # (Manual) (1.3-7.7) k/uL Metamyelocytes # (Man) (0) k/uL APTT 34.2 H (22.0-30.0) sec ABG pH 7.46 H (7.35-7.45) ABG pO2 117 H (83-108) mmHg ABG HCO3 28 H (21-25) mmol/L ABG Total CO2 29 H (19-24) mmol/L ABG O2 Saturation 99.2 H (94-97) % Sodium (137-145) mmol/L BUN (7-17) mg/dL Creatinine (0.52-1.04) mg/dL Glucose (74-99) mg/dL POC Glucose (mg/dL) (70-110) mg/dL Calcium (8.4-10.2) mg/dL Delta Bilirubin (0.0-0.2) mg/dL AST (14-36) U/L ALT (4-34) U/L Total Protein (6.3-8.2) g/dL Albumin (3.5-5.0) g/dL TSH 11.100 H (0.465-4.680) mIU/L Free T4 0.62 L (0.78-2.19) ng/dL Microbiology - Last 24 Hours (Table) 07/03/22 14:35 Blood Culture - Preliminary Blood 07/03/22 14:38 Blood Culture - Preliminary Blood 07/03/22 22:37 Gram Stain - Final Sputum Sputum Culture - Final Klebsiella oxytoca Assessment and Plan Assessment: Impression: Acute hypoxic respiratory failure secondary to abdominal sepsis and surgical abdomen requiring expiratory laparotomy, segmental small bowel resection for small bowel obstruction postoperative day #4 Status post repeat expiratory laparotomy segmental small bowel resection, ileostomy, feeding tube placement, and MAGNOLIA drains placement postoperative day #2 Septic shock secondary to abdominal sepsis requiring pressors. Thrombocytopenia secondary to sepsis and septic shock. Acute blood loss anemia with hypovolemia contributing to her hypotension, resp onded to blood transfusions and fresh was a plasma as well as platelets Acute on chronic kidney injury requiring hemodialysis Chronic kidney disease stage IV Shock liver Irritable bowel syndrome History of hiatal hernia History of GERD Hypothyroidism, thyroid dose has been increased. 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 Then retry pressure support of 14 and CPAP again Continue hemodynamic support and pressors as well as fluids Continue hemodialysis for acute on chronic kidney injury Nutritional support/TPN Continue bronchodilators Continue antibiotics including Merrem and Flagyl, sputum is positive for Klebsiella oxytoca and that is sensitive to Merrem Continue GI and DVT prophylaxis, avoid heparin since the patient has low karon telets Transfused with 2 units of platelets today since the patient is having some serosanguineous drainage bloody drainage in the ostomy bag noted this morning Continue nasogastric tube to low intermittent suction Patient remains critically ill, not quite ready for weaning at this point nonetheless we'll continue to try on a daily basis weaning the patient Prognosis is definitely guarded Increase the dose of levothyroxine to 100 mcg per day. Critical care time is over 30 minutes Time with Patient: Greater than 30
[2022-07-07] MEDS ORDERED: CALCIUM GLUCONATE IV SCH ×6 (16:00)
[2022-07-07] MEDS ORDERED: [UNRECOGNIZED DRUG - OTHER] IV SCH ×6 (16:00)
[2022-07-07] MEDS ORDERED: SODIUM ACETATE IV SCH ×6 (16:00)
[2022-07-07] MEDS ORDERED: MAGNESIUM SULFATE IV SCH ×6 (16:00)
[2022-07-07] MEDS: [UNRECOGNIZED DRUG - REMARK] IV SCH ×4 (16:10)
[2022-07-07 17:35] LABS: ABG Base Excess 2.6 mmol/L; ABG HCO3 27 mmol/L (21-25); ABG Oxygen Saturation 99.5 % (94-97); ABG PCO2 44 mmHg (35-45); ABG PH 7.41 (7.35-7.45); ABG PO2 141 mmHg (83-108); ABG TCO2 29 mmol/L (19-24)
[2022-07-07 17:37] LABS: Allen Test Performed? no
[2022-07-07 18:21] LABS: Glucose,Whole Blood 147 mg/dL (70-110)
[2022-07-07] MEDS: NOREPINEPHRINE 32 MG in SODIUM CHLORIDE 0.9% 218 ML IV SCH (19:46)
[2022-07-07] MEDS: ALPRAZolam 0.5 MG TAB PO SCH (20:11)
[2022-07-08 00:12] LABS: Glucose,Whole Blood 165 mg/dL (70-110)
[2022-07-08] MEDS: IPRATROPIUM-ALBUTEROL 3 ML NEB INHALATION SCH ×6 (00:15→22:00)
[2022-07-08] MEDS: SODIUM CHLORIDE 0.9% 1,000 ML IV SCH (00:19)
[2022-07-08] MEDS: INSULIN ASPART (NovoLOG) 100 UNIT/ML VIAL SQ SCH ×4 (00:19→17:59)
[2022-07-08] MEDS: metroNIDAZOLE-NS PMX 500 MG in SALINE 1 100ML.BAG IVPB SCH ×3 (01:44→18:16)
[2022-07-08 05:16] LABS: Anisocytosis Slight; Basophils % (A) 0 %; Eosinophils # (A) 0.1 k/uL (0-0.7); Eosinophils % (A) 1 %; HCT 24.5 % (34.0-46.0); Lymphocytes # (A) 0.8 k/uL (1.0-4.8); Lymphocytes % (A) 6 %; MCH 29.8 pg (25.0-35.0); MCHC 32.9 g/dL (31.0-37.0); MCV 90.8 fL (80.0-100.0); Mean Platelet Volume 10.5; Monocytes # (A) 0.4 k/uL (0-1.0); Monocytes % (A) 3 %; Neutrophils # (A) 11.6 k/uL (1.3-7.7); Neutrophils % (A) 90 %; Platelet Count 98 k/uL (150-450); WBC 12.9 k/uL (3.8-10.6)
[2022-07-08] MEDS: [UNRECOGNIZED DRUG - REMARK] IV SCH ×8 (05:28→06:28)
[2022-07-08 05:29] LABS: Albumin 1.5 g/dL (3.5-5.0); Calcium 6.5 mg/dL (8.4-10.2); Phosphorus 5.7 mg/dL (2.5-4.5); Potassium 3.9 mmol/L (3.5-5.1); Total Bilirubin 0.8 mg/dL (0.2-1.3)
[2022-07-08] MEDS: LEVOTHYROXINE 100 MCG TAB PO SCH (06:29)
[2022-07-08] MEDS: CHOLECALCIFEROL 10 MCG (400 IU) TABLET PO SCH (08:25)
[2022-07-08] MEDS: CYANOCOBALAMIN 500 MCG TAB PO SCH (08:25)
[2022-07-08] MEDS: allopurinoL 100 MG TAB PO SCH (08:25)
[2022-07-08] MEDS: FERROUS SULFATE 325 MG TAB PO SCH (08:25)
[2022-07-08] MEDS: CITALOPRAM HYDROBROMIDE 20 MG TAB PO SCH (08:25)
[2022-07-08] MEDS: TAMSULOSIN 0.4 MG CAP.ER.24H PO SCH (08:26)
[2022-07-08] MEDS: MEROPENEM 500 MG in SODIUM CHLORIDE 0.9% 100 ML IVPB SCH (08:29)
[2022-07-08] MEDS: PANTOPRAZOLE 40 MG/10 ML VIAL IVP SCH (08:29)
[2022-07-08] MEDS: MORPHINE SULFATE 4 MG/ML SYRINGE IV PRN (08:35)
--- NOTE | 2022-07-08 11:00 | P.PN ---
Subjective Progress Note Date: 07/08/22 Hospital Course: 81-year-old female with history of IBS, hypothyroidism, depression, gout, anxiety presenting with acute abdominal pain. In the ED, temperature 97.5, pulse 85, respiratory rate 19, blood pressure 93/64, saturating at 99% on room air. WBC 10.6, sodium 134, potassium 5.1, bicarb 15, creatinine 2.07, glucose 222, AST 48, ALT 39, troponin 0.012. 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 EKG showed normal sinus rhythm, right bundle branch block. Chest x- ray showed no acute process. Patient admitted for abdominal pain, nausea vomiting, possible ileus. Surgery consulted. In the ER, patient had a syncopal episode. A,, patient clearly has signs of severe sepsis, lactate is trending up, severe leukocytosis with bandemia. Likely source is abdomen. On broad- spectrum antibiotics, also has worsening acute kidney injury. For acidosis, started on IV sodium bicarbonate. Patient continued to worsen, and septic and hypovolemic shock. She was taken emergently for surgery. She had exploratory laparoscopy with segmental small bowel resection, was noted to have bowel ischemia. Currently she is intubated and sedated in the medical ICU. She had temp dialysis catheter placed and was started on iHD. Had second look operation on 07/05, had necrotic bowel removed and had ileostomy placement. Pt continued to have blood loss and thrombocytopenia issues. Extubated, on nasal cannula. Subjective: Patient seen and examined at bedside. No acute events overnight. She is status post extubation. She claims that she is tired. Continues to have NG tube and Person catheter in place. Pertinent positives and negatives as discussed above, a complete review of systems was performed and all other systems are negative. Vitals Signs Reviewed. General: Not in acute distress, tired-appearing Derm: warm, dry Head: atraumatic, normocephalic, symmetric Eyes: pupils equal round reactive to light, EOMI ENT: Nose and ears atraumatic Neck: No thyromegaly, supple Mouth: no lip lesion, mucus membranes moist Cardiovascular: S1S2 reg, tachycardic, no murmur, no edema Lungs: clear to auscultation bilateral, no rhonchi, no rales, no wheeze, no accessory muscle use, supplemental oxygen Abdominal: soft, has a wound VAC, nondistended, ostomy in place, NG tube Ext: no gross muscle atrophy, no contractures Neuro: Oriented 3, tired appearing Psych: Cooperative Data Reviewed Today: Pertinent Labs: WBC 12.9, hemoglobin 8, platelet 98, sodium 133, creatinine 3.25, magnesium 2 Imaging: No new imaging today Assessment and Plan: Septic shock, resolved Bowel ischemia, status post surgery Ischemic hepatitis, improving Mechanical ventilation, extubated Acute kidney injury on chronic kidney disease, now requiring dialysis Hypocalcemia Lactic acidosis High anion gap metabolic acidosis, resolved Possible cirrhosis Right bundle branch block Hypothyroidism Acute normocytic anemia Thrombocytopenia -Patient no longer on pressors -Surgery following, continue TPN -Nut Grader following, continue meropenem and Flagyl -Transaminitis improving -Nephrology following -Restarted home levothyroxin -No active bleeding, on 40 mg IV Protonix daily -Platelet count improving -Patient is critically ill, in medical ICU. Resolved: Hyperkalemia DVT ppx: SCDs Code status: Full code Anticipated discharge place: Pending clinical course Anticipated discharge time: Pending clinical course Objective - Vital Signs Vital signs: Vital Signs Temp 99.3 F 07/08/22 08:00 Pulse 105 H 07/08/22 10:00 Resp 21 07/08/22 10:00 BP 106/41 07/07/22 14:06 Pulse Ox 99 07/08/22 10:00 FiO2 35 07/07/22 20:00 Intake & Output 07/07/22 07/08/22 07/08/22 18:59 06:59 18:59 Intake Total 1923.040 3611 410.6 Output Total 485 590 60 Balance 1436.638 6287 350.6 Weight 70.3 kg Intake: IV 480 1514 410.6 Calcium Gluconate 1 gm In 864 Amino Acid 5%-D15w+Lytes *E* 1,000 ml @ 72 mls/hr IV .BY DURATION [facility] Rx#: [id number] Calcium Gluconate in NaCl 100 2 gm In Saline 1 100ml. bag @ 100 mls/hr IVPB ONCE ONE Rx#:[id number] Calcium Gluconate in NaCl 100 2 gm In Saline 1 100ml. bag @ 100 mls/hr IVPB ONCE ONE Rx#:[id number] Meropenem 500 mg In 66.6 Sodium Chloride 0.9% 100 ml @ 33.3 mls/hr IVPB Q24HR [facility] Rx#:[id number] Mvi, Adult No.4 with Vit 144 K 10 ml Trace (Conc-1Ml/ Dose) 1 ml Calcium Gluconate 1 gm In Amino Acid 5%-D15w+Lytes*E* 1, 000 ml @ 72 mls/hr IV .BY DURATION [facility] Rx#: [id number] Mvi, Adult No.4 with Vit 30 K 10 ml Trace (Conc-1Ml/ Dose) 1 ml Sodium Acetate 30 meq Magnesium Sulfate gm 1 gm Calcium Gluconate 2 gm In Amino Acid 5%-D15w 1,000 ml @ 30 mls/hr IV .Q24H [facility] Rx #:[id number] Sodium Chloride 0.9% 1, 350 550 100 000 ml @ 50 mls/hr IV . Q20H [facility] Rx#:[id number] metroNIDAZOLE-NS PMX 500 100 mg In Saline 1 100ml.bag @ 100 mls/hr IVPB Q8H [facility] Rx#:[id number] Intake, IV Titration 322.165 8493 Amount Calcium Gluconate 1 gm In 1010 Amino Acid 5%-D15w+Lytes *E* 1,000 ml @ 72 mls/hr IV .BY DURATION [facility] Rx#: [id number] Desmopressin Acetate 20 50 mcg In Sodium Chloride 0. 9% 50 ml @ 200 mls/hr IVPB ONCE ONE Rx#: [id number] Meropenem 500 mg In 99.9 Sodium Chloride 0.9% 100 ml @ 33.3 mls/hr IVPB Q24HR [facility] Rx#:[id number] Norepinephrine 32 mg In 1.431 Sodium Chloride 0.9% 218 ml @ 0.05 MCG/KG/MIN 1. 223 mls/hr IV .Q24H [facility] Rx#:[id number] metroNIDAZOLE-NS PMX 500 200 mg In Saline 1 100ml.bag @ 100 mls/hr IVPB Q8H [facility] Rx#:[id number] propofoL 1,000 mg In 4.956 Empty Bag 1 bag @ 15 MCG/ KG/MIN 4.695 mls/hr IV . [id number] [facility] Rx#:[id number] Blood Product 712 Platelet Pheresis Pas 350 Psoralen Unit [id number] Platelet Pheresis Pas 362 Psoralen Unit [id number] Output: Gastric Drainage 440 450 Drainage 20 Medial Abdomen 20 Urine 45 120 60 Other: Voiding Method Indwelling Catheter Indwelling Catheter Indwelling Catheter ABP, PAP, CO, CI - Last Documented Arterial Blood Pressure 113/39 - Labs CBC & Chem 7: 07/08/22 04:50 07/08/22 04:50 Labs: Abnormal Lab Results - Last 24 Hours (Table) 07/07/22 07/07/22 07/07/22 Range/Units 04:03 17:33 18:20 WBC (3.8-10.6) k/uL RBC (3.80-5.40) m/uL Hgb (11.4-16.0) gm/dL Hct (34.0-46.0) % RDW (11.5-15.5) % Plt Count (150-450) k/uL Neutrophils # (1.3-7.7) k/uL Lymphocytes # (1.0-4.8) k/uL ABG pO2 141 H (83-108) mmHg ABG HCO3 27 H (21-25) mmol/L ABG Total CO2 29 H (19-24) mmol/L ABG O2 Saturation 99.5 H (94-97) % Sodium (137-145) mmol/L BUN (7-17) mg/dL Creatinine (0.52-1.04) mg/dL Glucose (74-99) mg/dL POC Glucose (mg/dL) 147 H (70-110) mg/dL Calcium (8.4-10.2) mg/dL Phosphorus (2.5-4.5) mg/dL AST (14-36) U/L ALT (4-34) U/L Total Protein (6.3-8.2) g/dL Albumin (3.5-5.0) g/dL Free T4 0.62 L (0.78-2.19) ng/dL 07/08/22 07/08/22 07/08/22 Range/Units 00:10 04:50 04:50 WBC 12.9 H (3.8-10.6) k/uL RBC 2.70 L (3.80-5.40) m/uL Hgb 8.0 L (11.4-16.0) gm/dL Hct 24.5 L (34.0-46.0) % RDW 18.0 H (11.5-15.5) % Plt Count 98 L D (150-450) k/uL Neutrophils # 11.6 H (1.3-7.7) k/uL Lymphocytes # 0.8 L (1.0-4.8) k/uL ABG pO2 (83-108) mmHg ABG HCO3 (21-25) mmol/L ABG Total CO2 (19-24) mmol/L ABG O2 Saturation (94-97) % Sodium 133 L (137-145) mmol/L BUN 65 H (7-17) mg/dL Creatinine 3.35 H (0.52-1.04) mg/dL Glucose 131 H (74-99) mg/dL POC Glucose (mg/dL) 165 H (70-110) mg/dL Calcium 6.5 L (8.4-10.2) mg/dL Phosphorus 5.7 H (2.5-4.5) mg/dL AST 53 H (14-36) U/L ALT 109 H (4-34) U/L Total Protein 3.0 L (6.3-8.2) g/dL Albumin 1.5 L (3.5-5.0) g/dL Free T4 (0.78-2.19) ng/dL Microbiology - Last 24 Hours (Table) 07/03/22 14:35 Blood Culture - Preliminary Blood 07/03/22 14:38 Blood Culture - Preliminary Blood
--- NOTE | 2022-07-08 11:36 | P.PN ---
Subjective Patient is seen in follow-up for acute kidney injury on chronic kidney disease. Urine output now about 15-20 mL an hour. Underwent small bowel resection 07/03/2022 and another surgery with segmental small bowel resection, formation of ileostomy with mucous fistula and placement of PEG tube 07/05/2022. Patient has been bleeding from the ileostomy site and has received blood transfusions as well as platelets and FFP. Also received IV DDAVP. Extubated 07/07/2022. Vital signs - afebrile. Tachycardic. General: Resting in bed. HEENT: NG tube noted. LUNGS: Scattered rhonchi. HEART: Tachycardic. ABDOMEN: Ileostomy and PEG tube noted. EXTREMITITES: 1+ edema. Objective - Vital Signs Vital signs: Vital Signs Temp 99.3 F 07/08/22 08:00 Pulse 104 H 07/08/22 11:00 Resp 22 07/08/22 11:00 BP 106/41 07/07/22 14:06 Pulse Ox 97 07/08/22 11:00 FiO2 35 07/07/22 20:00 Intake & Output 07/07/22 07/08/22 07/08/22 18:59 06:59 18:59 Intake Total 0437.011 0038 587.9 Output Total 485 590 90 Balance 7455.924 1056 497.9 Weight 70.3 kg Intake: IV 480 1514 587.9 Calcium Gluconate 1 gm In 864 Amino Acid 5%-D15w+Lytes *E* 1,000 ml @ 75 mls/hr IV .BY DURATION [facility] Rx#: [id number] Calcium Gluconate in NaCl 100 2 gm In Saline 1 100ml. bag @ 100 mls/hr IVPB ONCE ONE Rx#:[id number] Calcium Gluconate in NaCl 100 2 gm In Saline 1 100ml. bag @ 100 mls/hr IVPB ONCE ONE Rx#:[id number] Meropenem 500 mg In 99.9 Sodium Chloride 0.9% 100 ml @ 33.3 mls/hr IVPB Q24HR [facility] Rx#:[id number] Mvi, Adult No.4 with Vit 288 K 10 ml Trace (Conc-1Ml/ Dose) 1 ml Calcium Gluconate 1 gm In Amino Acid 5%-D15w+Lytes*E* 1, 000 ml @ 75 mls/hr IV .BY DURATION [facility] Rx#: [id number] Mvi, Adult No.4 with Vit 30 K 10 ml Trace (Conc-1Ml/ Dose) 1 ml Sodium Acetate 30 meq Magnesium Sulfate gm 1 gm Calcium Gluconate 2 gm In Amino Acid 5%-D15w 1,000 ml @ 30 mls/hr IV .Q24H [facility] Rx #:[id number] Sodium Chloride 0.9% 1, 350 550 100 000 ml @ 50 mls/hr IV . Q20H [facility] Rx#:[id number] metroNIDAZOLE-NS PMX 500 100 mg In Saline 1 100ml.bag @ 100 mls/hr IVPB Q8H [facility] Rx#:[id number] Intake, IV Titration 027.228 3770 Amount Calcium Gluconate 1 gm In 1010 Amino Acid 5%-D15w+Lytes *E* 1,000 ml @ 75 mls/hr IV .BY DURATION [facility] Rx#: [id number] Desmopressin Acetate 20 50 mcg In Sodium Chloride 0. 9% 50 ml @ 200 mls/hr IVPB ONCE ONE Rx#: [id number] Meropenem 500 mg In 99.9 Sodium Chloride 0.9% 100 ml @ 33.3 mls/hr IVPB Q24HR [facility] Rx#:[id number] Norepinephrine 32 mg In 1.431 Sodium Chloride 0.9% 218 ml @ 0.05 MCG/KG/MIN 1. 223 mls/hr IV .Q24H [facility] Rx#:[id number] metroNIDAZOLE-NS PMX 500 200 mg In Saline 1 100ml.bag @ 100 mls/hr IVPB Q8H [facility] Rx#:[id number] propofoL 1,000 mg In 4.956 Empty Bag 1 bag @ 15 MCG/ KG/MIN 4.695 mls/hr IV . [id number] [facility] Rx#:[id number] Blood Product 712 Platelet Pheresis Pas 350 Psoralen Unit [id number] Platelet Pheresis Pas 362 Psoralen Unit [id number] Output: Gastric Drainage 440 450 Drainage 20 Medial Abdomen 20 Urine 45 120 90 Other: Voiding Method Indwelling Catheter Indwelling Catheter Indwelling Catheter ABP, PAP, CO, CI - Last Documented Arterial Blood Pressure 114/38 - Labs CBC & Chem 7: 07/08/22 04:50 07/08/22 04:50 Labs: Abnormal Lab Results - Last 24 Hours (Table) 07/07/22 07/07/22 07/07/22 Range/Units 04:03 17:33 18:20 WBC (3.8-10.6) k/uL RBC (3.80-5.40) m/uL Hgb (11.4-16.0) gm/dL Hct (34.0-46.0) % RDW (11.5-15.5) % Plt Count (150-450) k/uL Neutrophils # (1.3-7.7) k/uL Lymphocytes # (1.0-4.8) k/uL ABG pO2 141 H (83-108) mmHg ABG HCO3 27 H (21-25) mmol/L ABG Total CO2 29 H (19-24) mmol/L ABG O2 Saturation 99.5 H (94-97) % Sodium (137-145) mmol/L BUN (7-17) mg/dL Creatinine (0.52-1.04) mg/dL Glucose (74-99) mg/dL POC Glucose (mg/dL) 147 H (70-110) mg/dL Calcium (8.4-10.2) mg/dL Phosphorus (2.5-4.5) mg/dL AST (14-36) U/L ALT (4-34) U/L Total Protein (6.3-8.2) g/dL Albumin (3.5-5.0) g/dL Free T4 0.62 L (0.78-2.19) ng/dL 07/08/22 07/08/22 07/08/22 Range/Units 00:10 04:50 04:50 WBC 12.9 H (3.8-10.6) k/uL RBC 2.70 L (3.80-5.40) m/uL Hgb 8.0 L (11.4-16.0) gm/dL Hct 24.5 L (34.0-46.0) % RDW 18.0 H (11.5-15.5) % Plt Count 98 L D (150-450) k/uL Neutrophils # 11.6 H (1.3-7.7) k/uL Lymphocytes # 0.8 L (1.0-4.8) k/uL ABG pO2 (83-108) mmHg ABG HCO3 (21-25) mmol/L ABG Total CO2 (19-24) mmol/L ABG O2 Saturation (94-97) % Sodium 133 L (137-145) mmol/L BUN 65 H (7-17) mg/dL Creatinine 3.35 H (0.52-1.04) mg/dL Glucose 131 H (74-99) mg/dL POC Glucose (mg/dL) 165 H (70-110) mg/dL Calcium 6.5 L (8.4-10.2) mg/dL Phosphorus 5.7 H (2.5-4.5) mg/dL AST 53 H (14-36) U/L ALT 109 H (4-34) U/L Total Protein 3.0 L (6.3-8.2) g/dL Albumin 1.5 L (3.5-5.0) g/dL Free T4 (0.78-2.19) ng/dL Microbiology - Last 24 Hours (Table) 07/03/22 14:35 Blood Culture - Preliminary Blood 07/03/22 14:38 Blood Culture - Preliminary Blood Assessment and Plan Plan: Assessment: 1. Acute kidney injury secondary to ATN secondary to hypotension/septic shock. Creatinine peaked at 3.93 this admission. Urine output a little better - 15-20 mL an hour. No hydronephrosis noted on CAT scan. Started on hemodialysis . Has a femoral catheter. 2. Chronic kidney disease stage IV with baseline creatinine near 2 secondary to nephrosclerosis. 3. Metabolic acidosis secondary to acute kidney injury and lactic acidosis s/p bicarbonate drip. Improved. 4. Hyperkalemia secondary to acute kidney injury, acidosis. Improved with medical management and HD. 5. Small bowel obstruction with ischemic bowel status post exploratory laparotomy with segmental small bowel resection 07/03/2022. Underwent another exploratory laparotomy with segmental small bowel resection, ileostomy formation and PEG tube placement 07/05/2022. 6. Hypocalcemia secondary to acute kidney injury. Replaced. Corrected calcium normal. 7. Acute blood loss anemia status post blood transfusions, FFP and platelets. Also received IV DDAVP. Plan: Hemodialysis today with goal 1 L ultrafiltration. Hep-Lock IV fluids. Avoid nephrotoxins. Continue to monitor renal function and urine output.
[2022-07-08 11:42] LABS: Glucose,Whole Blood 156 mg/dL (70-110)
[2022-07-08] MEDS: FAT EMULSION 20% 250 ML IV SCH (11:43)
--- NOTE | 2022-07-08 13:40 | P.PN ---
Subjective Progress Note Date: 07/08/22 Principal diagnosis: Postoperative day #3 status post exploratory laparotomy with segmental bowel resection for small bowel obstruction I'm seeing this patient in new consultation today 07/04/2022 for ICU management post exploratory laparotomy and segmental small bowel resection for a small bowel obstruction. Patient is a 81-year-old white female with past medical history significant for irritable bowel syndrome, peptic ulcers with previous anemia and PRBC transfusions, GERD, hiatal hernia, chronic kidney disease stage IV, hypothyroidism, hypertension. Patient presented to the emergency room on July 02 with a chief complaint of abdominal pain, nausea, and vomiting for approximately one day. Patient reportedly had a bowel movement the day prior. A follow-up CT of the abdomen and pelvis without contrast showed fluid-filled prominent small bowel loops within the pelvis that could correlate for ileus. A low-grade small bowel obstruction was felt to be less likely at that time. There was also some ascites, and a small lobular liver. NG tube was originally inserted for gastric decompression, and the patient was observed overnight. The patient's condition progressively worsened, and was taken to surgery yesterday. Patient underwent an exploratory laparotomy with segmental small bowel resection. The abdomen was left open, and a wound VAC was applied. Postoperatively, the patient was left on the mechanical ventilator, and is currently in the intensive care unit. She is synchronous with the ventilator. Initial ventilator settings were assist control, respiratory rate 14, tidal volume 350, FiO2 100%, and a PEEP of 5. Initial chest x-ray showed the en dotracheal tube 2.4 cm from the amanda, NG tube was seen within the stomach, and there was some pulmonary vascular congestion without overt heart failure. Initial ABG on these settings showed a pO2 of 262, pCO2 of 50, pH of 7.12. Respiratory rate was increased to 26, tidal volume was increased to 400, and FiO2 reduced to 40%. A follow-up ABG showed a pO2 of 134, pCO2 of 34, and pH is 7.24. Propofol infusing at 15 mics per kilogram per minute for sedation. Patient was given 3 A of sodium bicarb and started on a sodium bicarb infusion 3 amps in D5W at 125 ML's per hour. There was an acute drop in hemoglobin from 10.8 g/dL preoperatively to 5.5 g/dL postoperatively. Patient is currently receiving 2 units PRBC transfusion. Patient was also fluid resuscitated with a total of 4 L normal saline. Patient's hypotension was refractory to fluid resuscitation, and was subsequently started on a norepinephrine infusion which is currently infusing at 0.12 mics per kilogram per minute through a right IJ double-lumen central line catheter. NG tube has a small amount of brown-green bilious nilton inage. Most recent CBC shows a WBC count of 4.8, hemoglobin 5.5, hematocrit 18.4, platelets 113,000. Most recent BMP postoperatively shows a sodium of 137, potassium 6.7, chloride 115, serum CO2 10, BUN 76, creatinine 4.14, glucose 96. Patient's hyperkalemia was treated with 8 units of insulin, an amp of D50W, 2 g of calcium gluconate, as well as the as the above-mentioned sodium bicarbonate. Patient has a component of acute on chronic kidney injury, and is currently anuric. Patient's lactic was also 6.6, and this will be rechecked. LFTs are mildly elevated. Patient was started on empiric Zosyn. The plan per surgical services, is to take the patient back to the operating room on Monday, once more hemodynamically stable. Shunt was reevaluated today on 07/05/2022, remains in the ICU, intubated and mechanically ventilated. Patient is on assist control rate of 26 tidal volume 400 FiO2 40% PEEP of 5 ABG showed a pO2 of 99 pCO2 39 pH of 7.43, hence no vent changes were made. Patient is on norepinephrine at 0.18 mcg/kg/m propofol at 10 mcg/kg/m she is also on bicarb drip which I have discontinued today, patient received dialysis last night. She is scheduled to have reexploration today and possibly closure of her abdominal incision sometime later today. Hence no plans to hold sedation or assess weaning at this point since the patient is going back to surgery. Chest x-ray showed mostly small left pleural effusion and atelectasis minimal increased interstitial densities. Labs were reviewed her WBC count is 9 hemoglobin 11.2. Platelets are 78,000 basic metabolic profile is normal however her BUN is 58 creatinine 3.03. Her enzymes remain elevated with AST of 419 ALT of 393. Antibiotics reno, patient is on Merrem and she is also on metronidazole. Patient was reevaluated today on 07/06/2022, remains intubated and mechanically ventilated. On 5/16/yesterday patient underwent another exploratory laparotomy segmental small bowel resection, formation of ileostomy with mucous fistula placement of feeding tube and MAGNOLIA drain. Postoperatively patient was sent back to the ICU. She is now on assist control rate of 26 tidal volume 400 FiO2 40% and PEEP of 5 ABG showed a pO2 of 117 pCO2 44 pH of 7.38. Patient is still requiring propofol at 10 mcg/kg/m and norepinephrine at 0.06 mcg/kg/m IV fluid is 0.9 normal saline at 50 mL an hour. Patient is undergoing intermittent hemodialysis. She had some intermittent bleeding at the surgical site, and she received so far a total of 4 units of packed RBCs, 2 units of fresh was a plasma and 1 unit of platelets. Chest x-ray showed small left pleural effusion and atelectasis. WBC count today is 8.7 hemoglobin is 9.1, electrolytes are normal renal profile showed a BUN of 59 and creatinine of 3.2, calcium is up to 6.7 l iver enzymes are improving compared to levels in the last few days definitely better and improved Reevaluated today on 07/07/2022, patient remains in the ICU, intubated and mechanically ventilated. She is on assist control rate of 26 tidal volume 400 FiO2 40% and PEEP of 5 ABG showed a pO2 of 117 pCO2 39 pH of 7.46 as I cut down her FiO2 to 35%. Patient is on propofol at 5 mcg/kg/m TPN at 30 mL per hour, she is also on norepinephrine at 0.02 mcg/m and IV fluid at 20 mL per hour. Patient had her last hemodialysis on 07/06 and removed 800 mL of fluid. Patient continues to have very low platelets in the 43,000 range, and I'm recommending 2 units of platelets and the patient is having bleeding into the ostomy bag patient has received a total of 4 units of packed RBCs units of fresh frozen plasma and 1 unit of platelets since admission. Clinically the patient extremely frail and weak, nonetheless she is arousable, opens her eyes, follows simple instructions seems to be very frail and weak. Discontinue propofol gave her a very short trial of pressure support of 14 and CPAP, however the patient was not moving enough tidal volume to continue with the weaning trial I believe the patient needs to be a bit more awake before we could proceed any further. In the meantime I have her off propofol completely. Antibiotics reno she remains on Merrem and Flagyl. Sputum culture has been positive for Klebsiella oxytoca, and that is well covered by Merrem on board. Patient continues to have a relatively low calcium however correcting her corrected calcium to her low albumin is actually in the range of 9-9.5, and there is no reason to continue giving the patient calcium gluconate for a calcium of 6.5 or higher her thyroid profile today showed elevated TSH and low T4 consistent with hypothyroidism, patient is on levothyroxine at 75 g, will increase the dose to 100. Chest x- ray showed left lower lobe atelectasis and possibly a small left pleural effusion. Reevaluated today on 07/08/2022, patient remains in the ICU, patient was extubated yesterday.Underwent small bowel resection 07/03/2022 and another surgery with segmental small bowel resection, formation of ileostomy with mucous fistula and placement of PEG tube 07/05/2022. Patient has been bleeding from the ileostomy site and has received blood transfusions as well as platelets and FFP. Also received IV DDAVP. Extubated 07/07/2022. So far the patient seems to have tolerated the extubation quite well. Patient is on 2 L nasal cannula. Last night she was on BiPAP 10/6 and 35%. Patient remains very frail and extr andreas weak. Not requiring any pressors today. WBC count is 12.9 hemoglobin is 8, platelets are up to 98,000. Basic metabolic profile is normal however her BUN is 65 creatinine 3.35, being closely followed by nephrology for her acute kidney injury, and planning hemodialysis today with a goal of 1 L ultrafiltration. Urine output is roughly 15-20 mL per hour no hydronephrosis on CT scanned. Hair hemodialysis started on 07/04 and she had a femoral catheter for dialysis. Patient remains on Merrem and metronidazole for her abdominal sepsis Objective - Vital Signs Vital signs: Vital Signs Temp 99.3 F 07/08/22 08:00 Pulse 104 H 07/08/22 12:37 Resp 25 H 07/08/22 12:00 BP 106/41 07/07/22 14:06 Pulse Ox 97 07/08/22 12:00 FiO2 35 07/07/22 20:00 Intake & Output 07/07/22 07/08/22 07/08/22 18:59 06:59 18:59 Intake Total 3486.718 0384 780.7 Output Total 485 590 115 Balance 7420.408 5820 665.7 Weight 70.3 kg Intake: IV 480 1514 780.7 Calcium Gluconate 1 gm In 864 Amino Acid 5%-D15w+Lytes *E* 1,000 ml @ 75 mls/hr IV .BY DURATION [facility] Rx#: [id number] Calcium Gluconate in NaCl 100 2 gm In Saline 1 100ml. bag @ 100 mls/hr IVPB ONCE ONE Rx#:[id number] Calcium Gluconate in NaCl 100 2 gm In Saline 1 100ml. bag @ 100 mls/hr IVPB ONCE ONE Rx#:[id number] Fat Emulsion 20% 250 ml @ 20.8 20.833 mls/hr IV MoFr@ 1200 [facility] Rx#:[id number] Meropenem 500 mg In 99.9 Sodium Chloride 0.9% 100 ml @ 33.3 mls/hr IVPB Q24HR [facility] Rx#:[id number] Mvi, Adult No.4 with Vit 360 K 10 ml Trace (Conc-1Ml/ Dose) 1 ml Calcium Gluconate 1 gm In Amino Acid 5%-D15w+Lytes*E* 1, 000 ml @ 75 mls/hr IV .BY DURATION [facility] Rx#: [id number] Mvi, Adult No.4 with Vit 30 K 10 ml Trace (Conc-1Ml/ Dose) 1 ml Sodium Acetate 30 meq Magnesium Sulfate gm 1 gm Calcium Gluconate 2 gm In Amino Acid 5%-D15w 1,000 ml @ 30 mls/hr IV .Q24H [facility] Rx #:[id number] Sodium Chloride 0.9% 1, 350 550 100 000 ml @ 50 mls/hr IV . Q20H [facility] Rx#:[id number] metroNIDAZOLE-NS PMX 500 100 100 mg In Saline 1 100ml.bag @ 100 mls/hr IVPB Q8H [facility] Rx#:[id number] Intake, IV Titration 272.534 6153 Amount Calcium Gluconate 1 gm In 1010 Amino Acid 5%-D15w+Lytes *E* 1,000 ml @ 75 mls/hr IV .BY DURATION [facility] Rx#: [id number] Desmopressin Acetate 20 50 mcg In Sodium Chloride 0. 9% 50 ml @ 200 mls/hr IVPB ONCE ONE Rx#: [id number] Meropenem 500 mg In 99.9 Sodium Chloride 0.9% 100 ml @ 33.3 mls/hr IVPB Q24HR [facility] Rx#:[id number] Norepinephrine 32 mg In 1.431 Sodium Chloride 0.9% 218 ml @ 0.05 MCG/KG/MIN 1. 223 mls/hr IV .Q24H [facility] Rx#:[id number] metroNIDAZOLE-NS PMX 500 200 mg In Saline 1 100ml.bag @ 100 mls/hr IVPB Q8H [facility] Rx#:[id number] propofoL 1,000 mg In 4.956 Empty Bag 1 bag @ 15 MCG/ KG/MIN 4.695 mls/hr IV . [id number] [facility] Rx#:[id number] Blood Product 712 Platelet Pheresis Pas 350 Psoralen Unit [id number] Platelet Pheresis Pas 362 Psoralen Unit [id number] Output: Gastric Drainage 440 450 Drainage 20 Medial Abdomen 20 Urine 45 120 115 Other: Voiding Method Indwelling Catheter Indwelling Catheter Indwelling Catheter ABP, PAP, CO, CI - Last Documented Arterial Blood Pressure 120/49 - Exam GENERAL EXAM: Revealed an 81-year-old female, on nasal cannula, looks chronically ill frail and weak and not in distress. HEAD: Normocephalic and atraumatic HEENT: PERRLA, EOMI, nonicteric, neck masses no JVD, CHEST: No chest wall deformity. LUNGS: Diminished breath sounds , minimal crackles bilaterally. CVS: S1 and S2 normal with no audible murmur, regular rhythm. No extra heart sounds. ABDOMEN: Postsurgical ileostomy is noted, serosanguineous drainage noted in the ostomy bag. feeding tube is noted, and MAGNOLIA drains are noted SKIN: No rashes. CENTRAL NERVOUS SYSTEM: Generally weak, alert oriented 3, follows simple instructions no gross focal neurologic deficit except weakness. EXTREMITIES: Trace of bipedal edema noted. Diminished distal pulses Psychiatric: Normal mood, flat affect, normal mental status examination - Labs CBC & Chem 7: 07/08/22 04:50 07/08/22 04:50 Labs: Abnormal Lab Results - Last 24 Hours (Table) 07/07/22 07/07/22 07/08/22 Range/Units 17:33 18:20 00:10 WBC (3.8-10.6) k/uL RBC (3.80-5.40) m/uL Hgb (11.4-16.0) gm/dL Hct (34.0-46.0) % RDW (11.5-15.5) % Plt Count (150-450) k/uL Neutrophils # (1.3-7.7) k/uL Lymphocytes # (1.0-4.8) k/uL ABG pO2 141 H (83-108) mmHg ABG HCO3 27 H (21-25) mmol/L ABG Total CO2 29 H (19-24) mmol/L ABG O2 Saturation 99.5 H (94-97) % Sodium (137-145) mmol/L BUN (7-17) mg/dL Creatinine (0.52-1.04) mg/dL Glucose (74-99) mg/dL POC Glucose (mg/dL) 147 H 165 H (70-110) mg/dL Calcium (8.4-10.2) mg/dL Phosphorus (2.5-4.5) mg/dL AST (14-36) U/L ALT (4-34) U/L Total Protein (6.3-8.2) g/dL Albumin (3.5-5.0) g/dL 07/08/22 07/08/22 07/08/22 Range/Units 04:50 04:50 11:40 WBC 12.9 H (3.8-10.6) k/uL RBC 2.70 L (3.80-5.40) m/uL Hgb 8.0 L (11.4-16.0) gm/dL Hct 24.5 L (34.0-46.0) % RDW 18.0 H (11.5-15.5) % Plt Count 98 L D (150-450) k/uL Neutrophils # 11.6 H (1.3-7.7) k/uL Lymphocytes # 0.8 L (1.0-4.8) k/uL ABG pO2 (83-108) mmHg ABG HCO3 (21-25) mmol/L ABG Total CO2 (19-24) mmol/L ABG O2 Saturation (94-97) % Sodium 133 L (137-145) mmol/L BUN 65 H (7-17) mg/dL Creatinine 3.35 H (0.52-1.04) mg/dL Glucose 131 H (74-99) mg/dL POC Glucose (mg/dL) 156 H (70-110) mg/dL Calcium 6.5 L (8.4-10.2) mg/dL Phosphorus 5.7 H (2.5-4.5) mg/dL AST 53 H (14-36) U/L ALT 109 H (4-34) U/L Total Protein 3.0 L (6.3-8.2) g/dL Albumin 1.5 L (3.5-5.0) g/dL Microbiology - Last 24 Hours (Table) 07/03/22 14:35 Blood Culture - Preliminary Blood 07/03/22 14:38 Blood Culture - Preliminary Blood Assessment and Plan Assessment: Impression: Acute hypoxic respiratory failure secondary to abdominal sepsis and surgical abdomen requiring expiratory laparotomy, segmental small bowel resection for small bowel obstruction postoperative day #5 Status post repeat expiratory laparotomy segmental small bowel resection, ileostomy, feeding tube placement, and MAGNOLIA drains placement postoperative day #3 Septic shock secondary to abdominal sepsis requiring pressors. Thrombocytopenia secondary to sepsis and septic shock. Improving platelets on 07/08 98,000 Acute blood loss anemia with hypovolemia contributing to her hypotension, responded to blood transfusions and fresh was a plasma as well as platelets Acute on chronic kidney injury requiring hemodialysis Chronic kidney disease stage IV Shock liver Irritable bowel syndrome History of hiatal hernia History of GERD Hypothyroidism, thyroid dose has been increased. 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 Continue hemodialysis for acute on chronic kidney injury, patient is scheduled to have hemodialysis today and the goal is 1 L ultrafiltration. Nutritional support/TPN Continue bronchodilators Continue antibiotics including Merrem and Flagyl, sputum is positive for Klebsiella oxytoca and that is sensitive to Merrem Continue GI and DVT prophylaxis, avoid heparin since the patient has low platelets General surgery is addressing her nasogastric tube and her PEG tube, could potentially consider using the PEG tube hopefully today or in the next 24 hours Patient remains critically ill, and marginal hence I plan to keep the patient in the ICU today. Continue incentive spirometry. Prognosis is definitely guarded Continue levothyroxine at 100 g per day per Critical care time is over 30 minutes Time with Patient: Greater than 30
--- NOTE | 2022-07-08 17:00 | P.PN ---
Subjective Progress Note Date: 07/08/22 Principal diagnosis: Ischemic bowel The patient is seen on rounds. She has been extubated. Answers yes and no appropriately. Denies pain. Objective - Vital Signs Vital signs: Vital Signs Temp 98.4 F 07/08/22 16:00 Pulse 110 H 07/08/22 16:31 Resp 26 H 07/08/22 16:00 BP 106/41 07/07/22 14:06 Pulse Ox 98 07/08/22 16:00 FiO2 35 07/07/22 20:00 Intake & Output 07/07/22 07/08/22 07/08/22 18:59 06:59 18:59 Intake Total 3256.241 7906 966.3 Output Total 485 590 170 Balance 7780.182 4152 796.3 Weight 70.3 kg 70.3 kg Intake: IV 480 1514 966.3 Calcium Gluconate 1 gm In 864 Amino Acid 5%-D15w+Lytes *E* 1,000 ml @ 75 mls/hr IV .BY DURATION [facility] Rx#: [id number] Calcium Gluconate in NaCl 100 2 gm In Saline 1 100ml. bag @ 100 mls/hr IVPB ONCE ONE Rx#:[id number] Calcium Gluconate in NaCl 100 2 gm In Saline 1 100ml. bag @ 100 mls/hr IVPB ONCE ONE Rx#:[id number] Fat Emulsion 20% 250 ml @ 62.4 20.833 mls/hr IV MoFr@ 1200 [facility] Rx#:[id number] Meropenem 500 mg In 99.9 Sodium Chloride 0.9% 100 ml @ 33.3 mls/hr IVPB Q24HR [facility] Rx#:[id number] Mvi, Adult No.4 with Vit 504 K 10 ml Trace (Conc-1Ml/ Dose) 1 ml Calcium Gluconate 1 gm In Amino Acid 5%-D15w+Lytes*E* 1, 000 ml @ 75 mls/hr IV .BY DURATION [facility] Rx#: [id number] Mvi, Adult No.4 with Vit 30 K 10 ml Trace (Conc-1Ml/ Dose) 1 ml Sodium Acetate 30 meq Magnesium Sulfate gm 1 gm Calcium Gluconate 2 gm In Amino Acid 5%-D15w 1,000 ml @ 30 mls/hr IV .Q24H [facility] Rx #:[id number] Sodium Chloride 0.9% 1, 350 550 100 000 ml @ 50 mls/hr IV . Q20H [facility] Rx#:[id number] metroNIDAZOLE-NS PMX 500 100 100 mg In Saline 1 100ml.bag @ 100 mls/hr IVPB Q8H [facility] Rx#:[id number] Intake, IV Titration 255.480 4203 Amount Calcium Gluconate 1 gm In 1010 Amino Acid 5%-D15w+Lytes *E* 1,000 ml @ 75 mls/hr IV .BY DURATION [facility] Rx#: [id number] Desmopressin Acetate 20 50 mcg In Sodium Chloride 0. 9% 50 ml @ 200 mls/hr IVPB ONCE ONE Rx#: [id number] Meropenem 500 mg In 99.9 Sodium Chloride 0.9% 100 ml @ 33.3 mls/hr IVPB Q24HR [facility] Rx#:[id number] Norepinephrine 32 mg In 1.431 Sodium Chloride 0.9% 218 ml @ 0.05 MCG/KG/MIN 1. 223 mls/hr IV .Q24H [facility] Rx#:[id number] metroNIDAZOLE-NS PMX 500 200 mg In Saline 1 100ml.bag @ 100 mls/hr IVPB Q8H [facility] Rx#:[id number] propofoL 1,000 mg In 4.956 Empty Bag 1 bag @ 15 MCG/ KG/MIN 4.695 mls/hr IV . [id number] [facility] Rx#:[id number] Blood Product 712 Platelet Pheresis Pas 350 Psoralen Unit [id number] Platelet Pheresis Pas 362 Psoralen Unit [id number] Output: Gastric Drainage 440 450 Drainage 20 Medial Abdomen 20 Urine 45 120 170 Other: Voiding Method Indwelling Catheter Indwelling Catheter Indwelling Catheter ABP, PAP, CO, CI - Last Documented Arterial Blood Pressure 108/47 - Constitutional Constitutional Comment(s): awakens to name General appearance: Present: cooperative - Respiratory Respiratory: bilateral: CTA, diminished (at bases) - Cardiovascular Rhythm: regular - Gastrointestinal Gastrointestinal Comment(s): dressing with old blood. MAGNOLIA serosang. Ostomy jose red with no output. General gastrointestinal: Present: absent bowel sounds, soft - Labs CBC & Chem 7: 07/08/22 04:50 07/08/22 04:50 Labs: Abnormal Lab Results - Last 24 Hours (Table) 07/07/22 07/07/22 07/08/22 Range/Units 17:33 18:20 00:10 WBC (3.8-10.6) k/uL RBC (3.80-5.40) m/uL Hgb (11.4-16.0) gm/dL Hct (34.0-46.0) % RDW (11.5-15.5) % Plt Count (150-450) k/uL Neutrophils # (1.3-7.7) k/uL Lymphocytes # (1.0-4.8) k/uL ABG pO2 141 H (83-108) mmHg ABG HCO3 27 H (21-25) mmol/L ABG Total CO2 29 H (19-24) mmol/L ABG O2 Saturation 99.5 H (94-97) % Sodium (137-145) mmol/L BUN (7-17) mg/dL Creatinine (0.52-1.04) mg/dL Glucose (74-99) mg/dL POC Glucose (mg/dL) 147 H 165 H (70-110) mg/dL Calcium (8.4-10.2) mg/dL Phosphorus (2.5-4.5) mg/dL AST (14-36) U/L ALT (4-34) U/L Total Protein (6.3-8.2) g/dL Albumin (3.5-5.0) g/dL 07/08/22 07/08/22 07/08/22 Range/Units 04:50 04:50 11:40 WBC 12.9 H (3.8-10.6) k/uL RBC 2.70 L (3.80-5.40) m/uL Hgb 8.0 L (11.4-16.0) gm/dL Hct 24.5 L (34.0-46.0) % RDW 18.0 H (11.5-15.5) % Plt Count 98 L D (150-450) k/uL Neutrophils # 11.6 H (1.3-7.7) k/uL Lymphocytes # 0.8 L (1.0-4.8) k/uL ABG pO2 (83-108) mmHg ABG HCO3 (21-25) mmol/L ABG Total CO2 (19-24) mmol/L ABG O2 Saturation (94-97) % Sodium 133 L (137-145) mmol/L BUN 65 H (7-17) mg/dL Creatinine 3.35 H (0.52-1.04) mg/dL Glucose 131 H (74-99) mg/dL POC Glucose (mg/dL) 156 H (70-110) mg/dL Calcium 6.5 L (8.4-10.2) mg/dL Phosphorus 5.7 H (2.5-4.5) mg/dL AST 53 H (14-36) U/L ALT 109 H (4-34) U/L Total Protein 3.0 L (6.3-8.2) g/dL Albumin 1.5 L (3.5-5.0) g/dL Microbiology - Last 24 Hours (Table) 07/03/22 14:35 Blood Culture - Preliminary Blood 07/03/22 14:38 Blood Culture - Preliminary Blood Assessment and Plan (1) Abdominal pain Current Visit: Yes Status: Acute Code(s): R10.9 - UNSPECIFIED ABDOMINAL PAIN SNOMED Code(s): 56412181 (2) Ischemic bowel disease Current Visit: Yes Status: Acute Code(s): K55.9 - VASCULAR DISORDER OF INTESTINE, UNSPECIFIED SNOMED Code(s): 52303978 (3) Renal insufficiency Current Visit: No Status: Acute Code(s): N28.9 - DISORDER OF KIDNEY AND URETER, UNSPECIFIED SNOMED Code(s): 944575958 (4) Shock liver Current Visit: Yes Status: Acute Code(s): K72.00 - ACUTE AND SUBACUTE HEPATIC FAILURE WITHOUT COMA SNOMED Code(s): 955857914 (5) Coagulopathy Current Visit: Yes Status: Acute Code(s): D68.9 - COAGULATION DEFECT, UNSPECIFIED SNOMED Code(s): 71921855 (6) Thrombocytopenia Current Visit: Yes Status: Acute Code(s): D69.6 - THROMBOCYTOPENIA, UNSPECIFIED SNOMED Code(s): 551865098 Plan: The patient is slowly improving. She has been off vasopressors for greater than 24 hours. Has been extubated. No signs of bleeding, although hemoglobin and platelets are still low. Tolerating TPN. If needed, she may have medications through tube. Hold off oral feedings.
[2022-07-08 18:08] LABS: Glucose,Whole Blood 148 mg/dL (70-110)
[2022-07-08] MEDS: NOREPINEPHRINE 32 MG in SODIUM CHLORIDE 0.9% 218 ML IV SCH (19:54)
[2022-07-08] MEDS: ALPRAZolam 0.5 MG TAB PO SCH (19:57)
[2022-07-08] MEDS ORDERED: SODIUM ACETATE IV SCH ×7 (20:00)
[2022-07-08] MEDS ORDERED: CALCIUM GLUCONATE IV SCH ×7 (20:00)
[2022-07-08] MEDS ORDERED: POTASSIUM CHLORIDE IV SCH ×7 (20:00)
[2022-07-08] MEDS ORDERED: [UNRECOGNIZED DRUG - OTHER] IV SCH ×7 (20:00)
[2022-07-08] MEDS ORDERED: IPRATROPIUM-ALBUTEROL 3 ML NEB INHALATION PRN (22:23)
[2022-07-08] MEDS: POTASSIUM CHLORIDE IV SCH ×7 (23:01)
[2022-07-08] MEDS: SODIUM ACETATE IV SCH ×7 (23:01)
[2022-07-08] MEDS: CALCIUM GLUCONATE IV SCH ×7 (23:01)
[2022-07-08] MEDS: [UNRECOGNIZED DRUG - OTHER] IV SCH ×7 (23:01)
[2022-07-09 00:17] LABS: Glucose,Whole Blood 154 mg/dL (70-110)
[2022-07-09] MEDS: INSULIN ASPART (NovoLOG) 100 UNIT/ML VIAL SQ SCH ×4 (00:48→18:28)
[2022-07-09] MEDS: metroNIDAZOLE-NS PMX 500 MG in SALINE 1 100ML.BAG IVPB SCH ×3 (02:48→18:28)
[2022-07-09 05:38] LABS: Glucose,Whole Blood 187 mg/dL (70-110)
--- NOTE | 2022-07-09 05:42 | XR ---
EXAMINATION TYPE: XR chest 1V portable DATE OF EXAM: 07/09/2022 CLINICAL HISTORY: Difficulty breathing progress study. TECHNIQUE: Single AP portable upright view of the chest is obtained. COMPARISON: Chest x-ray from 2 days earlier and older studies. FINDINGS: Stable endotracheal and orogastric tubes. Stable right internal jugular central venous cat heter. Diminished inspiration with increasing central and basilar opacities. Cardiac silhouette size stable and within normal limits. Osseous structures are intact. Cholecystectomy clips incidentally noted. IMPRESSION: Diminished inspiration with worsening small bilateral pleural effusions and worsening mod erate central vascular congestion. Developing underlying acute infiltrates unlikely but cannot be exc luded.
[2022-07-09 05:47] LABS: Anisocytosis Slight; Basophils % (A) 0 %; Eosinophils # (A) 0.1 k/uL (0-0.7); Eosinophils % (A) 1 %; HCT 24.8 % (34.0-46.0); HGB 8.2 gm/dL (11.4-16.0); Lymphocytes # (A) 0.7 k/uL (1.0-4.8); Lymphocytes % (A) 5 %; MCHC 32.9 g/dL (31.0-37.0); MCV 91.1 fL (80.0-100.0); Monocytes # (A) 0.6 k/uL (0-1.0); Monocytes % (A) 5 %; Neutrophils # (A) 11.9 k/uL (1.3-7.7); Neutrophils % (A) 88 %; RBC 2.72 m/uL (3.80-5.40); WBC 13.5 k/uL (3.8-10.6)
[2022-07-09] MEDS: LEVOTHYROXINE 100 MCG TAB PO SCH (05:52)
[2022-07-09 05:54] LABS: Platelet Count 43 k/uL (150-450)
[2022-07-09 05:58] LABS: Albumin 1.4 g/dL (3.5-5.0); Phosphorus 3.9 mg/dL (2.5-4.5); Potassium 3.8 mmol/L (3.5-5.1); Total Bilirubin 0.9 mg/dL (0.2-1.3)
[2022-07-09 06:04] LABS: Calcium 6.4 mg/dL (8.4-10.2)
[2022-07-09] MEDS ORDERED: POTASSIUM CHLORIDE 20 MEQ in WATER FOR INJECTION 1 100ML.BAG IVPB STA (06:25)
[2022-07-09] MEDS ORDERED: CALCIUM GLUCONATE IN NACL 1 GM in SALINE 1 100ML.BAG IVPB ONE (07:30)
[2022-07-09] MEDS: IPRATROPIUM-ALBUTEROL 3 ML NEB INHALATION SCH ×4 (08:47→21:10)
[2022-07-09] MEDS: CITALOPRAM HYDROBROMIDE 20 MG TAB PO SCH ×2 (09:17→12:02)
[2022-07-09] MEDS: PANTOPRAZOLE 40 MG/10 ML VIAL IVP SCH (09:17)
[2022-07-09] MEDS: allopurinoL 100 MG TAB PO SCH ×2 (09:18→10:12)
[2022-07-09] MEDS: CYANOCOBALAMIN 500 MCG TAB PO SCH ×2 (09:18→10:12)
[2022-07-09] MEDS: CHOLECALCIFEROL 10 MCG (400 IU) TABLET PO SCH ×2 (09:18→10:12)
[2022-07-09] MEDS: TAMSULOSIN 0.4 MG CAP.ER.24H PO SCH (09:18)
[2022-07-09] MEDS: FERROUS SULFATE 325 MG TAB PO SCH ×2 (09:18→10:12)
[2022-07-09] MEDS ORDERED: FUROSEMIDE 10 MG/ML 10 ML VIAL IV STA (09:48)
[2022-07-09] MEDS: MEROPENEM 500 MG in SODIUM CHLORIDE 0.9% 100 ML IVPB SCH (10:12)
--- NOTE | 2022-07-09 10:17 | P.PN ---
Subjective Patient is seen in follow-up for acute kidney injury on chronic kidney disease. Urine output now about 10-20 mL an hour. Underwent small bowel resection 07/03/2022 and another surgery with segmental small bowel resection, formation of ileostomy with mucous fistula and placement of PEG tube 07/05/2022. Patient has been bleeding from the ileostomy site and has received blood transfusions as well as platelets and FFP. Also received IV DDAVP. Extubated 07/07/2022. Vital signs - afebrile. General: Resting in bed. HEENT: NG tube noted. LUNGS: Scattered rhonchi. HEART: Regular rate and rhythm. ABDOMEN: Ileostomy and PEG tube noted. EXTREMITITES: 1+ edema. Objective - Vital Signs Vital signs: Vital Signs Temp 98.5 F 07/09/22 09:00 Pulse 101 H 07/09/22 09:00 Resp 20 07/09/22 09:00 BP 130/50 07/08/22 17:59 Pulse Ox 100 07/09/22 09:00 FiO2 35 07/07/22 20:00 Intake & Output 07/08/22 07/09/22 07/09/22 18:59 06:59 18:59 Intake Total 1676.3 1054 355 Output Total 1890 470 45 Balance -213.7 584 310 Weight 70.3 kg 68 kg Intake: IV 1076.3 1054 355 Calcium Gluconate in NaCl 100 1 gm In Saline 1 100ml. bag @ 100 mls/hr IVPB ONCE ONE Rx#:[id number] Calcium Gluconate in NaCl 100 2 gm In Saline 1 100ml. bag @ 100 mls/hr IVPB ONCE ONE Rx#:[id number] Fat Emulsion 20% 250 ml @ 62.4 84 20.833 mls/hr IV MoFr@ 1200 [facility] Rx#:[id number] Meropenem 500 mg In 99.9 Sodium Chloride 0.9% 100 ml @ 33.3 mls/hr IVPB Q24HR [facility] Rx#:[id number] Mvi, Adult No.4 with Vit 504 K 10 ml Trace (Conc-1Ml/ Dose) 1 ml Calcium Gluconate 1 gm In Amino Acid 5%-D15w+Lytes*E* 1, 000 ml @ 75 mls/hr IV .BY DURATION [facility] Rx#: [id number] Mvi, Adult No.4 with Vit 600 225 K 10 ml Trace (Conc-1Ml/ Dose) 1 ml Sodium Acetate 30 meq Potassium Chloride 20 meq Calcium Gluconate 1.5 gm Magnesium Sulfate gm 1 gm In Amino Acid 5%-D15w 1, 000 ml @ 75 mls/hr IV .BY DURATION [facility] Rx#: [id number] Potassium Chloride 20 meq 50 In Water For Injection 1 100ml.bag @ 50 mls/hr IVPB ONCE [facility] Rx#: [id number] Sodium Chloride 0.9% 1, 110 120 30 000 ml @ 50 mls/hr IV . Q20H [facility] Rx#:[id number] metroNIDAZOLE-NS PMX 500 200 100 100 mg In Saline 1 100ml.bag @ 100 mls/hr IVPB Q8H [facility] Rx#:[id number] Hemodialysis 600 Output: Gastric Drainage 200 Drainage 20 Medial Abdomen 20 Urine 170 130 45 Stool 80 Oral Regurgitation 260 Hemodialysis 1500 Other: Voiding Method Indwelling Catheter Indwelling Catheter ABP, PAP, CO, CI - Last Documented Arterial Blood Pressure 148/58 - Labs CBC & Chem 7: 07/09/22 05:37 07/09/22 05:37 Labs: Abnormal Lab Results - Last 24 Hours (Table) 07/08/22 07/08/22 07/09/22 Range/Units 11:40 17:56 00:16 WBC (3.8-10.6) k/uL RBC (3.80-5.40) m/uL Hgb (11.4-16.0) gm/dL Hct (34.0-46.0) % RDW (11.5-15.5) % Plt Count (150-450) k/uL Neutrophils # (1.3-7.7) k/uL Lymphocytes # (1.0-4.8) k/uL Sodium (137-145) mmol/L BUN (7-17) mg/dL Creatinine (0.52-1.04) mg/dL Glucose (74-99) mg/dL POC Glucose (mg/dL) 156 H 148 H 154 H (70-110) mg/dL Calcium (8.4-10.2) mg/dL ALT (4-34) U/L Total Protein (6.3-8.2) g/dL Albumin (3.5-5.0) g/dL 07/09/22 07/09/22 07/09/22 Range/Units 05:36 05:37 05:37 WBC 13.5 H (3.8-10.6) k/uL RBC 2.72 L (3.80-5.40) m/uL Hgb 8.2 L (11.4-16.0) gm/dL Hct 24.8 L (34.0-46.0) % RDW 18.0 H (11.5-15.5) % Plt Count 43 L D (150-450) k/uL Neutrophils # 11.9 H (1.3-7.7) k/uL Lymphocytes # 0.7 L (1.0-4.8) k/uL Sodium 132 L (137-145) mmol/L BUN 65 H (7-17) mg/dL Creatinine 2.53 H (0.52-1.04) mg/dL Glucose 156 H (74-99) mg/dL POC Glucose (mg/dL) 187 H (70-110) mg/dL Calcium 6.4 L* (8.4-10.2) mg/dL ALT 67 H (4-34) U/L Total Protein 3.0 L (6.3-8.2) g/dL Albumin 1.4 L (3.5-5.0) g/dL Microbiology - Last 24 Hours (Table) 07/03/22 14:35 Blood Culture - Preliminary Blood 07/03/22 14:38 Blood Culture - Preliminary Blood Assessment and Plan Plan: Assessment: 1. Acute kidney injury secondary to ATN secondary to hypotension/septic shock. Creatinine peaked at 3.93 this admission. Urine output 10-20 mL an hour. No hydronephrosis noted on CAT scan. Started on hemodialysis 07/04/2022. Has a femoral catheter. 2. Chronic kidney disease stage IV with baseline creatinine near 2 secondary to nephrosclerosis. 3. Metabolic acidosis secondary to acute kidney injury and lactic acidosis s/p bicarbonate drip. Improved. 4. Hyperkalemia secondary to acute kidney injury, acidosis. Improved with medical management and HD. 5. Small bowel obstruction with ischemic bowel status post exploratory laparotomy with segmental small bowel resection 07/03/2022. Underwent another exploratory laparotomy with segmental small bowel resection, ileostomy formation and PEG tube placement 07/05/2022. 6. Hypocalcemia secondary to acute kidney injury. Replaced. Corrected calcium normal. 7. Acute blood loss anemia status post blood transfusions, FFP and platelets. Also received IV DDAVP. Hemoglobin stable at 8.2. Plan: Last hemodialysis 07/08/2022. Hold today. Repeat 80 mg IV Lasix once today. On TPN. Avoid nephrotoxins. Continue to monitor renal function and urine output.
--- NOTE | 2022-07-09 10:52 | P.PN ---
Subjective Progress Note Date: 07/09/22 Hospital Course: 81-year-old female with history of IBS, hypothyroidism, depression, gout, anxiety presenting with acute abdominal pain. In the ED, temperature 97.5, pulse 85, respiratory rate 19, blood pressure 93/64, saturating at 99% on room air. WBC 10.6, sodium 134, potassium 5.1, bicarb 15, creatinine 2.07, glucose 222, AST 48, ALT 39, troponin 0.012. 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 EKG showed normal sinus rhythm, right bundle branch block. Chest x- ray showed no acute process. Patient admitted for abdominal pain, nausea vomiting, possible ileus. Surgery consulted. In the ER, patient had a syncopal episode. A,, patient clearly has signs of severe sepsis, lactate is trending up, severe leukocytosis with bandemia. Likely source is abdomen. On broad- spectrum antibiotics, also has worsening acute kidney injury. For acidosis, started on IV sodium bicarbonate. Patient continued to worsen, and septic and hypovolemic shock. She was taken emergently for surgery. She had exploratory laparoscopy with segmental small bowel resection, was noted to have bowel ischemia. Currently she is intubated and sedated in the medical ICU. She had temp dialysis catheter placed and was started on iHD. Had second look operation on 07/05, had necrotic bowel removed and had ileostomy placement. Pt continued to have blood loss and thrombocytopenia issues. Extubated, on nasal cannula. NG tube still in place. Remains in the medical ICU. Subjective: Patient seen and examined at bedside. No acute events overnight. She claims that she is tired. Continues to have NG tube and Person catheter in place. Pertinent positives and negatives as discussed above, a complete review of systems was performed and all other systems are negative. Vitals Signs Reviewed. General: Not in acute distress, tired-appearing Derm: warm, dry Head: atraumatic, normocephalic, symmetric Eyes: pupils equal round reactive to light, EOMI ENT: Nose and ears atraumatic Neck: No thyromegaly, supple Mouth: no lip lesion, mucus membranes moist Cardiovascular: S1S2 reg, tachycardic, no murmur, peripheral edema Lungs: Bilateral rales at the bases, no wheeze, no accessory muscle use, supplemental oxygen Abdominal: soft, has a wound VAC, nondistended, ostomy in place, NG tube Ext: no gross muscle atrophy, no contractures Neuro: Oriented 1, tired appearing Psych: Cooperative Data Reviewed Today: Pertinent Labs: WBC 13.5, hemoglobin 8.2, platelet 43, sodium 132, potassium 3.8, creatinine 2.53, calcium 6.4, albumin 1.4, glucose ranged between 148-187 Imaging: Chest x-ray independently interpreted, bilateral pulmonary vascular congestion Assessment and Plan: Acute hypoactive delirium Septic shock, resolved Bowel ischemia, status post surgery Ischemic hepatitis, improving Mechanical ventilation, extubated Pulmonary rascal congestion Acute kidney injury on chronic kidney disease, now requiring dialysis Hypocalcemia Lactic acidosis High anion gap metabolic acidosis, resolved Possible cirrhosis Right bundle branch block Hypothyroidism Acute normocytic anemia Thrombocytopenia -Delirium likely secondary to ICU stay as well as metabolic derangements -Nephrology note reviewed, hold dialysis today, 80 mg IV Lasix -Surgery following, continue TPN -Rn Pain Management following, continue meropenem and Flagyl -Transaminitis improving -On home levothyroxine -No active bleeding, on 40 mg IV Protonix daily -Platelet count dropped again, no active bleeding -Patient is critically ill, in medical ICU. Resolved: Hyperkalemia DVT ppx: SCDs Code status: Full code Anticipated discharge place: Pending clinical course Anticipated discharge time: Pending clinical course Objective - Vital Signs Vital signs: Vital Signs Temp 98.5 F 07/09/22 09:00 Pulse 112 H 07/09/22 10:00 Resp 23 07/09/22 10:00 BP 130/50 07/08/22 17:59 Pulse Ox 99 07/09/22 10:00 FiO2 35 07/07/22 20:00 Intake & Output 07/08/22 07/09/22 07/09/22 18:59 06:59 18:59 Intake Total 1676.3 1054 540 Output Total 1890 470 65 Balance -213.7 584 475 Weight 70.3 kg 68 kg Intake: IV 1076.3 1054 540 Calcium Gluconate in NaCl 100 1 gm In Saline 1 100ml. bag @ 100 mls/hr IVPB ONCE ONE Rx#:[id number] Calcium Gluconate in NaCl 100 2 gm In Saline 1 100ml. bag @ 100 mls/hr IVPB ONCE ONE Rx#:[id number] Fat Emulsion 20% 250 ml @ 62.4 84 20.833 mls/hr IV MoFr@ 1200 [facility] Rx#:[id number] Meropenem 500 mg In 99.9 100 Sodium Chloride 0.9% 100 ml @ 33.3 mls/hr IVPB Q24HR [facility] Rx#:[id number] Mvi, Adult No.4 with Vit 504 K 10 ml Trace (Conc-1Ml/ Dose) 1 ml Calcium Gluconate 1 gm In Amino Acid 5%-D15w+Lytes*E* 1, 000 ml @ 75 mls/hr IV .BY DURATION [facility] Rx#: [id number] Mvi, Adult No.4 with Vit 600 300 K 10 ml Trace (Conc-1Ml/ Dose) 1 ml Sodium Acetate 30 meq Potassium Chloride 20 meq Calcium Gluconate 1.5 gm Magnesium Sulfate gm 1 gm In Amino Acid 5%-D15w 1, 000 ml @ 75 mls/hr IV .BY DURATION [facility] Rx#: [id number] Potassium Chloride 20 meq 50 In Water For Injection 1 100ml.bag @ 50 mls/hr IVPB ONCE [facility] Rx#: [id number] Sodium Chloride 0.9% 1, 110 120 40 000 ml @ 50 mls/hr IV . Q20H [facility] Rx#:[id number] metroNIDAZOLE-NS PMX 500 200 100 100 mg In Saline 1 100ml.bag @ 100 mls/hr IVPB Q8H [facility] Rx#:[id number] Hemodialysis 600 Output: Gastric Drainage 200 Drainage 20 Medial Abdomen 20 Urine 170 130 65 Stool 80 Oral Regurgitation 260 Hemodialysis 1500 Other: Voiding Method Indwelling Catheter Indwelling Catheter ABP, PAP, CO, CI - Last Documented Arterial Blood Pressure 116/44 - Labs CBC & Chem 7: 07/09/22 05:37 07/09/22 05:37 Labs: Abnormal Lab Results - Last 24 Hours (Table) 07/08/22 07/08/22 07/09/22 Range/Units 11:40 17:56 00:16 WBC (3.8-10.6) k/uL RBC (3.80-5.40) m/uL Hgb (11.4-16.0) gm/dL Hct (34.0-46.0) % RDW (11.5-15.5) % Plt Count (150-450) k/uL Neutrophils # (1.3-7.7) k/uL Lymphocytes # (1.0-4.8) k/uL Sodium (137-145) mmol/L BUN (7-17) mg/dL Creatinine (0.52-1.04) mg/dL Glucose (74-99) mg/dL POC Glucose (mg/dL) 156 H 148 H 154 H (70-110) mg/dL Calcium (8.4-10.2) mg/dL ALT (4-34) U/L Total Protein (6.3-8.2) g/dL Albumin (3.5-5.0) g/dL 07/09/22 07/09/22 07/09/22 Range/Units 05:36 05:37 05:37 WBC 13.5 H (3.8-10.6) k/uL RBC 2.72 L (3.80-5.40) m/uL Hgb 8.2 L (11.4-16.0) gm/dL Hct 24.8 L (34.0-46.0) % RDW 18.0 H (11.5-15.5) % Plt Count 43 L D (150-450) k/uL Neutrophils # 11.9 H (1.3-7.7) k/uL Lymphocytes # 0.7 L (1.0-4.8) k/uL Sodium 132 L (137-145) mmol/L BUN 65 H (7-17) mg/dL Creatinine 2.53 H (0.52-1.04) mg/dL Glucose 156 H (74-99) mg/dL POC Glucose (mg/dL) 187 H (70-110) mg/dL Calcium 6.4 L* (8.4-10.2) mg/dL ALT 67 H (4-34) U/L Total Protein 3.0 L (6.3-8.2) g/dL Albumin 1.4 L (3.5-5.0) g/dL Microbiology - Last 24 Hours (Table) 07/03/22 14:35 Blood Culture - Preliminary Blood 07/03/22 14:38 Blood Culture - Preliminary Blood
[2022-07-09 11:58] LABS: Glucose,Whole Blood 156 mg/dL (70-110)
--- NOTE | 2022-07-09 12:28 | P.PN ---
Subjective Progress Note Date: 07/09/22 Principal diagnosis: Small bowel is obstruction with bowel ischemia, status post abdominal exploration with staged bowel resection and ileostomy. Patient seen and examined at bedside. Denies abdominal pain, admits to some low back pain. Feeling fatigued. Nasogastric tubes in place with persistent gastric output. Continues with TPN and IV antibiotic coverage with meropenem. Not requiring pressors at present. A shown some low-grade tachycardia and tachypnea today. Vital signs otherwise stable. Chest x-ray from today shows bilateral effusions and central vascular congestion. Objective - Vital Signs Vital signs: Vital Signs Temp 99.2 F 07/09/22 12:00 Pulse 101 H 07/09/22 12:00 Resp 25 H 07/09/22 12:00 BP 130/50 07/08/22 17:59 Pulse Ox 98 07/09/22 12:00 FiO2 35 07/07/22 20:00 Intake & Output 07/08/22 07/09/22 07/09/22 18:59 06:59 18:59 Intake Total 1676.3 1054 710 Output Total 1890 470 125 Balance -213.7 584 585 Weight 70.3 kg 68 kg Intake: IV 1076.3 1054 710 0.9 20 Calcium Gluconate in NaCl 100 1 gm In Saline 1 100ml. bag @ 100 mls/hr IVPB ONCE ONE Rx#:[id number] Calcium Gluconate in NaCl 100 2 gm In Saline 1 100ml. bag @ 100 mls/hr IVPB ONCE ONE Rx#:[id number] Fat Emulsion 20% 250 ml @ 62.4 84 20.833 mls/hr IV MoFr@ 1200 [facility] LICENSE OF [facility] Rx#:[id number] Meropenem 500 mg In 99.9 100 Sodium Chloride 0.9% 100 ml @ 33.3 mls/hr IVPB Q24HR ON LICENSE OF [facility] Rx#:[id number] Mvi, Adult No.4 with Vit 504 K 10 ml Trace (Conc-1Ml/ Dose) 1 ml Calcium Gluconate 1 gm In Amino Acid 5%-D15w+Lytes*E* 1, 000 ml @ 75 mls/hr IV .BY DURATION ON LICENSE OF [facility] Rx#: [id number] Mvi, Adult No.4 with Vit 600 450 K 10 ml Trace (Conc-1Ml/ Dose) 1 ml Sodium Acetate 30 meq Potassium Chloride 20 meq Calcium Gluconate 1.5 gm Magnesium Sulfate gm 1 gm In Amino Acid 5%-D15w 1, 000 ml @ 75 mls/hr IV .BY DURATION ON LICENSE OF [facility] Rx#: [id number] Potassium Chloride 20 meq 50 In Water For Injection 1 100ml.bag @ 50 mls/hr IVPB ONCE STA Rx#: [id number] Sodium Chloride 0.9% 1, 110 120 40 000 ml @ 50 mls/hr IV . Q20H ON LICENSE OF [facility] Rx#:[id number] metroNIDAZOLE-NS PMX 500 200 100 100 mg In Saline 1 100ml.bag @ 100 mls/hr IVPB Q8H ON LICENSE OF [facility] Rx#:[id number] Hemodialysis 600 Output: Gastric Drainage 200 Drainage 20 Medial Abdomen 20 Urine 170 130 125 Stool 80 Oral Regurgitation 260 Hemodialysis 1500 Other: Voiding Method Indwelling Catheter Indwelling Catheter Indwelling Catheter ABP, PAP, CO, CI - Last Documented Arterial Blood Pressure 130/51 - Constitutional General appearance: Present: average body habitus, cooperative - EENT Eyes: Present: EOMI, PERRLA ENT: Present: NA/AT - Respiratory Details: Decreased, somewhat shallow respiratory effort without discrete crackles wheezes or rhonchi. - Cardiovascular Rhythm: regular - Gastrointestinal Gastrointestinal Comment(s): Midline incision showing ongoing serous drainage without evidence of cellulitis or purulence to suggest infection. Ileostomy show some dusky mucosa with a bit of sloughing but remains intact. Slight ongoing bleeding noted. No abdominal tenderness on exam. PEG tube is in place. General gastrointestinal: Present: decreased bowel sounds - Integumentary Integumentary Comment(s): Moderate diffuse soft tissue edema noted - Neurologic Neurologic: Present: CNII-XII intact - Musculoskeletal Musculoskeletal: Present: generalized weakness - Psychiatric Psychiatric: Present: A&O x's 3 - Labs CBC & Chem 7: 07/09/22 05:37 07/09/22 05:37 Labs: Abnormal Lab Results - Last 24 Hours (Table) 07/08/22 07/09/22 07/09/22 Range/Units 17:56 00:16 05:36 WBC (3.8-10.6) k/uL RBC (3.80-5.40) m/uL Hgb (11.4-16.0) gm/dL Hct (34.0-46.0) % RDW (11.5-15.5) % Plt Count (150-450) k/uL Neutrophils # (1.3-7.7) k/uL Lymphocytes # (1.0-4.8) k/uL Sodium (137-145) mmol/L BUN (7-17) mg/dL Creatinine (0.52-1.04) mg/dL Glucose (74-99) mg/dL POC Glucose (mg/dL) 148 H 154 H 187 H (70-110) mg/dL Calcium (8.4-10.2) mg/dL ALT (4-34) U/L Total Protein (6.3-8.2) g/dL Albumin (3.5-5.0) g/dL 07/09/22 07/09/22 07/09/22 Range/Units 05:37 05:37 11:56 WBC 13.5 H (3.8-10.6) k/uL RBC 2.72 L (3.80-5.40) m/uL Hgb 8.2 L (11.4-16.0) gm/dL Hct 24.8 L (34.0-46.0) % RDW 18.0 H (11.5-15.5) % Plt Count 43 L D (150-450) k/uL Neutrophils # 11.9 H (1.3-7.7) k/uL Lymphocytes # 0.7 L (1.0-4.8) k/uL Sodium 132 L (137-145) mmol/L BUN 65 H (7-17) mg/dL Creatinine 2.53 H (0.52-1.04) mg/dL Glucose 156 H (74-99) mg/dL POC Glucose (mg/dL) 156 H (70-110) mg/dL Calcium 6.4 L* (8.4-10.2) mg/dL ALT 67 H (4-34) U/L Total Protein 3.0 L (6.3-8.2) g/dL Albumin 1.4 L (3.5-5.0) g/dL Microbiology - Last 24 Hours (Table) 07/03/22 14:35 Blood Culture - Preliminary Blood 07/03/22 14:38 Blood Culture - Preliminary Blood - Imaging and Cardiology Chest x-ray: report reviewed, image reviewed Assessment and Plan Assessment: 81-year-old lady with presenting small bowel obstruction, status post initial abdominal exploration, stage small bowel resection and end ileostomy creation. Small bowel mucosa looking somewhat dusky but no conclusive efrain ischemia. Thrombocytopenia, multifactorial. Acute on chronic kidney injury. Presenting sepsis, status post initial abdominal source control and continuing with IV meropenem. Chest x-ray today inconclusive for pneumonia. Plan: Continue with ICU care and medical support. I expect her to have a prolonged ileus, continue with nasogastric tube decompression and TPN. I advised the patient to expect a slow recovery giving her pre-existing renal impairment. We'll continue to keep a close eye on the ileostomy. Hopefully the serous drainage from her midline incision represents a simple subcutaneous seroma that is draining. Continue with local care. Time with Patient: Greater than 30
--- NOTE | 2022-07-09 12:43 | P.PN ---
Subjective Progress Note Date: 07/09/22 Principal diagnosis: status post exploratory laparotomy with segmental bowel resection for small bowel obstruction I'm seeing this patient in new consultation today 07/04/2022 for ICU management post exploratory laparotomy and segmental small bowel resection for a small bowel obstruction. Patient is a 81-year-old white female with past medical history significant for irritable bowel syndrome, peptic ulcers with previous anemia and PRBC transfusions, GERD, hiatal hernia, chronic kidney disease stage IV, hypothyroidism, hypertension. Patient presented to the emergency room on July 02 with a chief complaint of abdominal pain, nausea, and vomiting for approximately one day. Patient reportedly had a bowel movement the day prior. A follow-up CT of the abdomen and pelvis without contrast showed fluid-filled prominent small bowel loops within the pelvis that could correlate for ileus. A low-grade small bowel obstruction was felt to be less likely at that time. There was also some ascites, and a small lobular liver. NG tube was originally inserted for gastric decompression, and the patient was observed overnight. The patient's condition progressively worsened, and was taken to surgery yesterday. Patient underwent an exploratory laparotomy with segmental small bowel resection. The abdomen was left open, and a wound VAC was applied. Postoperatively, the patient was left on the mechanical ventilator, and is currently in the intensive care unit. She is synchronous with the ventilator. Initial ventilator settings were assist control, respiratory rate 14, tidal volume 350, FiO2 100%, and a PEEP of 5. Initial chest x-ray showed the endotracheal tube 2.4 cm from the amanda, NG tube was seen within the stomach, and there was some pulmonary vascular congestion without overt heart failure. Initial ABG on these settings showed a pO2 of 262, pCO2 of 50, pH of 7.12. Respiratory rate was increased to 26, tidal volume was increased to 400, and FiO2 reduced to 40%. A follow-up ABG showed a pO2 of 134, pCO2 of 34, and pH is 7.24. Propofol infusing at 15 mics per kilogram per minute for sedation. Patient was given 3 A of sodium bicarb and started on a sodium bicarb infusion 3 amps in D5W at 125 ML's per hour. There was an acute drop in hemoglobin from 10.8 g/dL preoperatively to 5.5 g/dL postoperatively. Patient is currently receiving 2 units PRBC transfusion. Patient was also fluid resuscitated with a total of 4 L normal saline. Patient's hypotension was refractory to fluid resuscitation, and was subsequently started on a norepinephrine infusion which is currently infusing at 0.12 mics per kilogram per minute through a right IJ double-lumen central line catheter. NG tube has a small amount of brown-green bilious drainage. Most recent CBC shows a WBC count of 4.8, hemoglobin 5.5, hematocrit 18.4, platelets 113,000. Most recent BMP postoperatively shows a sodium of 137, potassium 6.7, chloride 115, serum CO2 10, BUN 76, creatinine 4.14, glucose 96. Patient's hyperkalemia was treated with 8 units of insulin, an amp of D50W, 2 g of calcium gluconate, as well as the as the above-mentioned sodium bicarbonate. Patient has a component of acute on chronic kidney injury, and is currently anuric. Patient's lactic was also 6.6, and this will be rechecked. LFTs are mildly elevated. Patient was started on empiric Zosyn. The plan per surgical services, is to take the patient back to the operating room on Monday, once more hemodynamically stable. Shunt was reevaluated today on 07/05/2022, remains in the ICU, intubated and mechanically ventilated. Patient is on assist control rate of 26 tidal volume 400 FiO2 40% PEEP of 5 ABG showed a pO2 of 99 pCO2 39 pH of 7.43, hence no vent changes were made. Patient is on norepinephrine at 0.18 mcg/kg/m propofol at 10 mcg/kg/m she is also on bicarb drip which I have discontinued today, patient received dialysis last night. She is scheduled to have reexploration today and possibly closure of her abdominal incision sometime later today. Hence no plans to hold sedation or assess weaning at this point since the patient is going back to surgery. Chest x-ray showed mostly small left pleural effusion and atelectasis minimal increased interstitial densities. Labs were reviewed her WBC count is 9 hemoglobin 11.2. Platelets are 78,000 basic metabolic profile is normal however her BUN is 58 creatinine 3.03. Her enzymes remain elevated with AST of 419 ALT of 393. Antibiotics reno, patient is on Merrem and she is also on metronidazole. Patient was reevaluated today on 07/06/2022, remains intubated and mechanically ventilated. On yesterday patient underwent another exploratory laparotomy segmental small bowel resection, formation of ileostomy with mucous fistula placement of feeding tube and MAGNOLIA drain. Postoperatively patient was sent back to the ICU. She is now on assist control rate of 26 tidal volume 400 FiO2 40% and PEEP of 5 ABG showed a pO2 of 117 pCO2 44 pH of 7.38. Patient is still requiring propofol at 10 mcg/kg/m and norepinephrine at 0.06 mcg/kg/m IV fluid is 0.9 normal saline at 50 mL an hour. Patient is undergoing intermittent hemodialysis. She had some intermittent bleeding at the surgical site, and she received so far a total of 4 units of packed RBCs, 2 units of fresh was a plasma and 1 unit of platelets. Chest x-ray showed small left pleural effusion and atelectasis. WBC count today is 8.7 hemoglobin is 9.1, electrolytes are normal renal profile showed a BUN of 59 and creatinine of 3.2, calcium is up to 6.7 liver enzymes are improving compared to levels in the last few days definitely better and improved Reevaluated today on 07/07/2022, patient remains in the ICU, intubated and mechanically ventilated. She is on assist control rate of 26 tidal volume 400 FiO2 40% and PEEP of 5 ABG showed a pO2 of 117 pCO2 39 pH of 7.46 as I cut down her FiO2 to 35%. Patient is on propofol at 5 mcg/kg/m TPN at 30 mL per hour, she is also on norepinephrine at 0.02 mcg/m and IV fluid at 20 mL per hour. Patient had her last hemodialysis on 07/06 and removed 800 mL of fluid. Patient continues to have very low platelets in the 43,000 range, and I'm recommending 2 units of platelets and the patient is having bleeding into the ostomy bag patient has received a total of 4 units of packed RBCs units of fresh frozen plasma and 1 unit of platelets since admission. Clinically the patient extremely frail and weak, nonetheless she is arousable, opens her eyes, follows simple instructions seems to be very frail and weak. Discontinue propofol gave her a very short trial of pressure support of 14 and CPAP, however the patient was not moving enough tidal volume to continue with the weaning trial I believe the patient needs to be a bit more awake before we could proceed any further. In the meantime I have her off propofol completely. Antibiotics reno she remains on Merrem and Flagyl. Sputum culture has been positive for Klebsiella oxytoca, and that is well covered by Merrem on board. Patient continues to have a relatively low calcium however correcting her corrected calcium to her low albumin is actually in the range of 9-9.5, and there is no reason to continue giving the patient calcium gluconate for a calcium of 6.5 or higher her thyroid profile today showed elevated TSH and low T4 consistent with hypothyroidism, patient is on levothyroxine at 75 g, will increase the dose to 100. Chest x- ray showed left lower lobe atelectasis and possibly a small left pleural effusion. Reevaluated today on 07/08/2022, patient remains in the ICU, patient was extubated yesterday.Underwent small bowel resection 07/03/2022 and another surgery with segmental small bowel resection, formation of ileostomy with mucous fistula and placement of PEG tube 07/05/2022. Patient has been bleeding from the ileostomy site and has received blood transfusions as well as platelets and FFP. Also received IV DDAVP. Extubated 07/07/2022. So far the patient seems to have tolerated the extubation quite well. Patient is on 2 L nasal cannula. Last night she was on BiPAP 10/6 and 35%. Patient remains very frail and extremely weak. Not requiring any pressors today. WBC count is 12.9 hemoglobin is 8, platelets are up to 98,000. Basic metabolic profile is normal however her BUN is 65 creatinine 3.35, being closely followed by nephrology for her acute kidney injury, and planning hemodialysis today with a goal of 1 L ultrafiltration. Urine output is roughly 15-20 mL per hour no hydronephrosis on CT scanned. Hair hemodialysis started on 07/04 and she had a femoral catheter for dialysis. Patient remains on Merrem and metronidazole for her abdominal sepsis Reevaluated today on 07/09/2022, patient continues to do fairly well considering her multiple medical problems, she tolerated the extubation over the last 2 days quite well, patient is on 2 L nasal cannula, not in any distress. Remains on Merrem and Flagyl she received a dose of Lasix of 80 mg IV push today nephrology not planning hemodialysis on this patient today, chest x-ray showed small bilateral pleural effusion and congestive changes IVC there is a picture of fluid overload surprisingly the patient is doing better than expected considering the abnormality noted on the chest x-ray. Remains on TPN her IV fluids at KVO her urine output is anywhere between 15 up to 20 mL per hour hopefully will pickup after giving him Lasix dose 80 mg IV push. Continues to have nasogastric tube in place, WBC 13.5 hemoglobin 8.2. Normal renal profile showed a BUN of 65 creatinine 2.53 Objective - Vital Signs Vital signs: Vital Signs Temp 99.2 F 07/09/22 12:00 Pulse 101 H 07/09/22 12:00 Resp 25 H 07/09/22 12:00 BP 130/50 07/08/22 17:59 Pulse Ox 98 07/09/22 12:00 FiO2 35 07/07/22 20:00 Intake & Output 07/08/22 07/09/22 07/09/22 18:59 06:59 18:59 Intake Total 1676.3 1054 710 Output Total 1890 470 125 Balance -213.7 584 585 Weight 70.3 kg 68 kg Intake: IV 1076.3 1054 710 0.9 20 Calcium Gluconate in NaCl 100 1 gm In Saline 1 100ml. bag @ 100 mls/hr IVPB ONCE ONE Rx#:[id number] Calcium Gluconate in NaCl 100 2 gm In Saline 1 100ml. bag @ 100 mls/hr IVPB ONCE ONE Rx#:[id number] Fat Emulsion 20% 250 ml @ 62.4 84 20.833 mls/hr IV MoFr@ 1200 [facility] Rx#:[id number] Meropenem 500 mg In 99.9 100 Sodium Chloride 0.9% 100 ml @ 33.3 mls/hr IVPB Q24HR [facility] Rx#:[id number] Mvi, Adult No.4 with Vit 504 K 10 ml Trace (Conc-1Ml/ Dose) 1 ml Calcium Gluconate 1 gm In Amino Acid 5%-D15w+Lytes*E* 1, 000 ml @ 75 mls/hr IV .BY DURATION [facility] Rx#: [id number] Mvi, Adult No.4 with Vit 600 450 K 10 ml Trace (Conc-1Ml/ Dose) 1 ml Sodium Acetate 30 meq Potassium Chloride 20 meq Calcium Gluconate 1.5 gm Magnesium Sulfate gm 1 gm In Amino Acid 5%-D15w 1, 000 ml @ 75 mls/hr IV .BY DURATION [facility] Rx#: [id number] Potassium Chloride 20 meq 50 In Water For Injection 1 100ml.bag @ 50 mls/hr IVPB ONCE STA Rx#: [id number] Sodium Chloride 0.9% 1, 110 120 40 000 ml @ 50 mls/hr IV . Q20H [facility] Rx#:[id number] metroNIDAZOLE-NS PMX 500 200 100 100 mg In Saline 1 100ml.bag @ 100 mls/hr IVPB Q8H [facility] Rx#:[id number] Hemodialysis 600 Output: Gastric Drainage 200 Drainage 20 Medial Abdomen 20 Urine 170 130 125 Stool 80 Oral Regurgitation 260 Hemodialysis 1500 Other: Voiding Method Indwelling Catheter Indwelling Catheter Indwelling Catheter ABP, PAP, CO, CI - Last Documented Arterial Blood Pressure 130/51 - Exam GENERAL EXAM: Revealed an 81-year-old female, on 2 L nasal cannula, remains chronically ill and frail looking. HEAD: Normocephalic and atraumatic HEENT: PERRLA, EOMI, nonicteric, neck masses no JVD, CHEST: No chest wall deformity. LUNGS: Diminished breath sounds , minimal crackles bilaterally. CVS: S1 and S2 normal with no audible murmur, regular rhythm. No extra heart sounds. ABDOMEN: Postsurgical ileostomy is noted, serosanguineous drainage noted in the ostomy bag. feeding tube is noted, and MAGNOLIA drains are noted SKIN: No rashes. CENTRAL NERVOUS SYSTEM: Generally weak, alert oriented 3, follows simple instructions no gross focal neurologic deficit except weakness. EXTREMITIES: Trace of bipedal edema noted. Diminished distal pulses Psychiatric: Normal mood, flat affect, normal mental status examination - Labs CBC & Chem 7: 07/09/22 05:37 07/09/22 05:37 Labs: Abnormal Lab Results - Last 24 Hours (Table) 07/08/22 07/09/22 07/09/22 Range/Units 17:56 00:16 05:36 WBC (3.8-10.6) k/uL RBC (3.80-5.40) m/uL Hgb (11.4-16.0) gm/dL Hct (34.0-46.0) % RDW (11.5-15.5) % Plt Count (150-450) k/uL Neutrophils # (1.3-7.7) k/uL Lymphocytes # (1.0-4.8) k/uL Sodium (137-145) mmol/L BUN (7-17) mg/dL Creatinine (0.52-1.04) mg/dL Glucose (74-99) mg/dL POC Glucose (mg/dL) 148 H 154 H 187 H (70-110) mg/dL Calcium (8.4-10.2) mg/dL ALT (4-34) U/L Total Protein (6.3-8.2) g/dL Albumin (3.5-5.0) g/dL 07/09/22 07/09/22 07/09/22 Range/Units 05:37 05:37 11:56 WBC 13.5 H (3.8-10.6) k/uL RBC 2.72 L (3.80-5.40) m/uL Hgb 8.2 L (11.4-16.0) gm/dL Hct 24.8 L (34.0-46.0) % RDW 18.0 H (11.5-15.5) % Plt Count 43 L D (150-450) k/uL Neutrophils # 11.9 H (1.3-7.7) k/uL Lymphocytes # 0.7 L (1.0-4.8) k/uL Sodium 132 L (137-145) mmol/L BUN 65 H (7-17) mg/dL Creatinine 2.53 H (0.52-1.04) mg/dL Glucose 156 H (74-99) mg/dL POC Glucose (mg/dL) 156 H (70-110) mg/dL Calcium 6.4 L* (8.4-10.2) mg/dL ALT 67 H (4-34) U/L Total Protein 3.0 L (6.3-8.2) g/dL Albumin 1.4 L (3.5-5.0) g/dL Microbiology - Last 24 Hours (Table) 07/03/22 14:35 Blood Culture - Preliminary Blood 07/03/22 14:38 Blood Culture - Preliminary Blood Assessment and Plan Assessment: Impression: Acute hypoxic respiratory failure secondary to abdominal sepsis and surgical abdomen requiring expiratory laparotomy, segmental small bowel resection for small bowel obstruction postoperative day #6 Status post repeat expiratory laparotomy segmental small bowel resection, ile ostomy, feeding tube placement, and MAGNOLIA drains placement postoperative day #4 Septic shock secondary to abdominal sepsis requiring pressors. Thrombocytopenia secondary to sepsis and septic shock. Improving platelets on 07/08 98,000 Acute blood loss anemia with hypovolemia contributing to her hypotension, responded to blood transfusions and fresh was a plasma as well as platelets Acute on chronic kidney injury requiring hemodialysis Chronic kidney disease stage IV Shock liver Irritable bowel syndrome History of hiatal hernia History of GERD Hypothyroidism, thyroid dose has been increased. 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 Possible left lower lobe pneumonia secondary to Klebsiella oxytoca Recommendation: Patient was extubated on 07/07/2022, tolerated the extubation well so far Continue hemodialysis for acute on chronic kidney injury, today the patient will receive a dose of Lasix 80 mg IV push, urine output today seems to be marginal 15-20 mL/h Nutritional support/TPN Continue bronchodilators Continue antibiotics including Merrem and Flagyl, sputum is positive for Klebsiella oxytoca and that is sensitive to Merrem Continue GI and DVT prophylaxis, avoid heparin since the patient has low platelets Patient remains marginal at best and will continue to monitor in the ICU over the weekend Continue incentive spirometry. Will continue to follow Time with Patient: Less than 30
[2022-07-09] MEDS: [UNRECOGNIZED DRUG - OTHER] IV SCH ×7 (13:45)
[2022-07-09] MEDS: CALCIUM GLUCONATE IV SCH ×7 (13:45)
[2022-07-09] MEDS: POTASSIUM CHLORIDE IV SCH ×7 (13:45)
[2022-07-09] MEDS: SODIUM ACETATE IV SCH ×7 (13:45)
[2022-07-09 17:50] LABS: Glucose,Whole Blood 194 mg/dL (70-110)
[2022-07-09] MEDS: NOREPINEPHRINE 32 MG in SODIUM CHLORIDE 0.9% 218 ML IV SCH (19:53)
[2022-07-09] MEDS: ALPRAZolam 0.5 MG TAB PO SCH (19:54)
[2022-07-09 23:32] LABS: Glucose,Whole Blood 139 mg/dL (70-110)
[2022-07-10] MEDS: INSULIN ASPART (NovoLOG) 100 UNIT/ML VIAL SQ SCH ×4 (00:18→18:29)
[2022-07-10] MEDS: metroNIDAZOLE-NS PMX 500 MG in SALINE 1 100ML.BAG IVPB SCH ×3 (02:13→17:37)
[2022-07-10] MEDS: SODIUM ACETATE IV SCH ×7 (04:04)
[2022-07-10] MEDS: [UNRECOGNIZED DRUG - OTHER] IV SCH ×7 (04:04)
[2022-07-10] MEDS: CALCIUM GLUCONATE IV SCH ×7 (04:04)
[2022-07-10] MEDS: POTASSIUM CHLORIDE IV SCH ×7 (04:04)
[2022-07-10] MEDS: MORPHINE SULFATE 4 MG/ML SYRINGE IV PRN ×3 (04:35→20:19)
[2022-07-10 04:40] LABS: Anisocytosis Slight; HCT 25.5 % (34.0-46.0); HGB 8.3 gm/dL (11.4-16.0); MCH 29.8 pg (25.0-35.0); MCHC 32.7 g/dL (31.0-37.0); MCV 91.2 fL (80.0-100.0); Mean Platelet Volume 11.9; RBC 2.79 m/uL (3.80-5.40); RDW 17.6 % (11.5-15.5); WBC 12.5 k/uL (3.8-10.6)
[2022-07-10 04:51] LABS: Platelet Count 57 k/uL (150-450)
[2022-07-10 04:53] LABS: Albumin 1.4 g/dL (3.5-5.0); Calcium 6.6 mg/dL (8.4-10.2); Magnesium 2.2 mg/dL (1.6-2.3); Phosphorus 3.3 mg/dL (2.5-4.5); Potassium 4.1 mmol/L (3.5-5.1); Total Bilirubin 1.4 mg/dL (0.2-1.3); Total Protein 2.9 g/dL (6.3-8.2)
[2022-07-10 05:18] LABS: Band Neutrophils % 2 %; Eosinophils # (M) 0.25 k/uL (0-0.7); Lymphocytes # (M) 0.88 k/uL (1.0-4.8); Metamyelocytes # (M) 0.13 k/uL (0); Metamyelocytes % 1 %; Neutrophils % (M) 82 %; Nucleated Red Blood Cells 0 /100 WBC (0-0); Total Cells Counted 200
[2022-07-10 05:20] LABS: Polychromasia Present
[2022-07-10] MEDS: LEVOTHYROXINE 100 MCG TAB PO SCH (05:52)
--- NOTE | 2022-07-10 06:08 | XR ---
EXAMINATION TYPE: XR chest 1V portable DATE OF EXAM: 07/10/2022 CLINICAL HISTORY: Difficulty breathing progress study. TECHNIQUE: Single AP portable semiupright view of the chest is obtained. COMPARISON: Chest x-ray from one day earlier and older studies. FINDINGS: Stable orogastric tube. Stable right internal jugular central venous catheter. Persistent bibasilar opacities. Cardiac silhouette size stable and mildly enlarged. Osseous structure s are intact. Cholecystectomy clips incidentally redemonstrated. IMPRESSION: Cardiomegaly with Persistent bibasilar opacities consistent with small moderate size bila teral pleural effusions and associated bibasilar atelectasis and/or acute infiltrates. No significant change from one day earlier accounting for technique change
[2022-07-10 06:09] LABS: Glucose,Whole Blood 173 mg/dL (70-110)
[2022-07-10] MEDS: IPRATROPIUM-ALBUTEROL 3 ML NEB INHALATION SCH ×4 (08:12→20:55)
[2022-07-10] MEDS: allopurinoL 100 MG TAB PO SCH (08:21)
[2022-07-10] MEDS: CITALOPRAM HYDROBROMIDE 20 MG TAB PO SCH (08:21)
[2022-07-10] MEDS: CHOLECALCIFEROL 10 MCG (400 IU) TABLET PO SCH (08:21)
[2022-07-10] MEDS: CYANOCOBALAMIN 500 MCG TAB PO SCH (08:22)
[2022-07-10] MEDS: FERROUS SULFATE 325 MG TAB PO SCH (08:22)
[2022-07-10] MEDS: TAMSULOSIN 0.4 MG CAP.ER.24H PO SCH (08:22)
[2022-07-10] MEDS: PANTOPRAZOLE 40 MG/10 ML VIAL IVP SCH (08:29)
[2022-07-10] MEDS: MEROPENEM 500 MG in SODIUM CHLORIDE 0.9% 100 ML IVPB SCH (09:47)
--- NOTE | 2022-07-10 10:30 | P.PN ---
Subjective Progress Note Date: 07/10/22 Hospital Course: 81-year-old female with history of IBS, hypothyroidism, depression, gout, anxie ty presenting with acute abdominal pain. In the ED, temperature 97.5, pulse 85, respiratory rate 19, blood pressure 93/64, saturating at 99% on room air. WBC 10.6, sodium 134, potassium 5.1, bicarb 15, creatinine 2.07, glucose 222, AST 48, ALT 39, troponin 0.012. 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 EKG showed normal sinus rhythm, right bundle branch block. Chest x-ray showed no acute process. Patient admitted for abdominal pain, nausea vomiting, possible ileus. Surgery consulted. In the ER, patient had a syncopal episode. A,, patient clearly has signs of severe sepsis, lactate is trending up, severe leukocytosis with bandemia. Likely source is abdomen. On broad-spectrum antibiotics, also has worsening acute kidney injury. For acidosis, started on IV sodium bicarbonate. Patient continued to worsen, and septic and hypovolemic shock. She was taken emergently for surgery. She had exploratory laparoscopy with segmental small bowel resection, was noted to have bowel ischemia. Currently she is intubated and sedated in the medical ICU. She had temp dialysis catheter placed and was started on iHD. Had second look operation on 07/05, had necrotic bowel removed and had ileostomy placement. Pt continued to have blood loss and thrombocytopenia issues. Extubated, on nasal cannula. NG tube still in place. Remains in the medical ICU. On TPN. Subjective: Patient seen and examined at bedside. No acute events overnight. Continues to have NG tube and Person catheter in place. Pertinent positives and negatives as discussed above, a complete review of systems was performed and all other systems are negative. Vitals Signs Reviewed. General: Not in acute distress, tired-appearing Derm: warm, dry Head: atraumatic, normocephalic, symmetric Eyes: pupils equal round reactive to light, EOMI ENT: Nose and ears atraumatic Neck: No thyromegaly, supple Mouth: no lip lesion, mucus membranes moist Cardiovascular: S1S2 reg, tachycardic, no murmur, peripheral edema Lungs: Bilateral rales at the bases, no wheeze, no accessory muscle use, supplemental oxygen Abdominal: soft, has a wound VAC, nondistended, ostomy in place, NG tube Ext: no gross muscle atrophy, no contractures Neuro: Oriented 1, tired appearing Psych: Cooperative Data Reviewed Today: Pertinent Labs: WBC 12.5, hemoglobin 8.3, platelet 57, sodium 131, creatinine 3.1, blood sugars range between 139-173 Imaging: Chest x-ray independently interpreted, persistent bilateral pulmonary vascular congestion Assessment and Plan: Acute hypoactive delirium, improving Septic shock, resolved Bowel ischemia, status post surgery Ischemic hepatitis, improving Mechanical ventilation, now extubated Pulmonary vascular congestion Acute kidney injury on chronic kidney disease, now requiring intermittent dialysis Hypocalcemia, resolved Hyperkalemia, resolved Lactic acidosis High anion gap metabolic acidosis, resolved Possible cirrhosis Right bundle branch block Hypothyroidism Acute normocytic anemia Thrombocytopenia -Delirium likely secondary to ICU stay as well as metabolic derangements, improving -Nephrology following, patient on intermittent hemodialysis -Surgery following, continue TPN -Bioprocess Engineer following, continue meropenem and Flagyl -Transaminitis improving -On home levothyroxine -No active bleeding, on 40 mg IV Protonix daily -Platelet count and hemoglobin was stable -Patient is critically ill, in medical ICU. DVT ppx: SCDs Code status: Full code Anticipated discharge place: Pending clinical course Anticipated discharge time: Pending clinical course Objective - Vital Signs Vital signs: Vital Signs Temp 99.1 F 07/10/22 08:00 Pulse 98 07/10/22 10:00 Resp 21 07/10/22 10:00 BP 130/50 07/08/22 17:59 Pulse Ox 94 L 07/10/22 10:00 FiO2 35 07/07/22 20:00 Intake & Output 07/09/22 07/10/22 07/10/22 18:59 06:59 18:59 Intake Total 1380 2282 450 Output Total 440 1635 325 Balance 940 647 125 Weight 71.7 kg Intake: IV 1380 1240 450 0.9 140 240 50 Meropenem 500 mg In 100 100 Sodium Chloride 0.9% 100 ml @ 33.3 mls/hr IVPB Q24HR [facility] Rx#:[id number] Mvi, Adult No.4 with Vit 900 900 300 K 10 ml Trace (Conc-1Ml/ Dose) 1 ml Sodium Acetate 30 meq Potassium Chloride 20 meq Calcium Gluconate 1.5 gm Magnesium Sulfate gm 1 gm In Amino Acid 5%-D15w 1, 000 ml @ 75 mls/hr IV .BY DURATION [facility] Rx#: [id number] Sodium Chloride 0.9% 1, 40 000 ml @ 50 mls/hr IV . Q20H [facility] Rx#:[id number] metroNIDAZOLE-NS PMX 500 200 100 mg In Saline 1 100ml.bag @ 100 mls/hr IVPB Q8H [facility] Rx#:[id number] Intake, IV Titration 1042 Amount Sodium Acetate 30 meq 1042 Potassium Chloride 20 meq Calcium Gluconate 1.5 gm Magnesium Sulfate gm 1 gm In Amino Acid 5%-D15w 1,000 ml @ 75 mls/hr IV . BY DURATION [facility] Rx#: [id number] Output: Gastric Drainage 750 Drainage 100 270 100 Medial Abdomen 100 270 100 Urine 340 615 225 Other: Voiding Method Indwelling Catheter Indwelling Catheter Indwelling Catheter ABP, PAP, CO, CI - Last Documented Arterial Blood Pressure 142/53 - Labs CBC & Chem 7: 07/10/22 04:45 07/10/22 04:30 Labs: Abnormal Lab Results - Last 24 Hours (Table) 07/09/22 07/09/22 07/09/22 Range/Units 11:56 17:49 23:28 WBC (3.8-10.6) k/uL RBC (3.80-5.40) m/uL Hgb (11.4-16.0) gm/dL Hct (34.0-46.0) % RDW (11.5-15.5) % Plt Count (150-450) k/uL Neutrophils # (Manual) (1.3-7.7) k/uL Lymphocytes # (Manual) (1.0-4.8) k/uL Metamyelocytes # (Man) (0) k/uL Sodium (137-145) mmol/L BUN (7-17) mg/dL Creatinine (0.52-1.04) mg/dL Glucose (74-99) mg/dL POC Glucose (mg/dL) 156 H 194 H 139 H (70-110) mg/dL Calcium (8.4-10.2) mg/dL Total Bilirubin (0.2-1.3) mg/dL ALT (4-34) U/L Total Protein (6.3-8.2) g/dL Albumin (3.5-5.0) g/dL 07/10/22 07/10/22 07/10/22 Range/Units 04:30 04:45 06:07 WBC 12.5 H (3.8-10.6) k/uL RBC 2.79 L (3.80-5.40) m/uL Hgb 8.3 L (11.4-16.0) gm/dL Hct 25.5 L (34.0-46.0) % RDW 17.6 H (11.5-15.5) % Plt Count 57 L (150-450) k/uL Neutrophils # (Manual) 10.50 H (1.3-7.7) k/uL Lymphocytes # (Manual) 0.88 L (1.0-4.8) k/uL Metamyelocytes # (Man) 0.13 H (0) k/uL Sodium 131 L (137-145) mmol/L BUN 88 H (7-17) mg/dL Creatinine 3.10 H (0.52-1.04) mg/dL Glucose 150 H (74-99) mg/dL POC Glucose (mg/dL) 173 H (70-110) mg/dL Calcium 6.6 L (8.4-10.2) mg/dL Total Bilirubin 1.4 H (0.2-1.3) mg/dL ALT 45 H (4-34) U/L Total Protein 2.9 L (6.3-8.2) g/dL Albumin 1.4 L (3.5-5.0) g/dL Microbiology - Last 24 Hours (Table) 07/03/22 14:35 Blood Culture - Final Blood 07/03/22 14:38 Blood Culture - Final Blood
--- NOTE | 2022-07-10 11:19 | P.PN ---
Subjective Progress Note Date: 07/10/22 Principal diagnosis: Small bowel is obstruction with bowel ischemia, status post abdominal exploration with staged bowel resection and ileostomy. Patient seen and examined at bedside. Appears comfortable, just got a dose of pain medications. She tells me she is feeling may be slightly better today than yesterday. Still no function from the ileostomy. Nasogastric tube remains in place with around 230 mL charted overnight shift. Continues with TPN, jejunostomy is in place, abdominal drains in place with high output of serous fluid. On antibiotic coverage with meropenem and Flagyl. Not requiring pressor support. Has had a hemodynamically stable afebrile appearance overnight. Tachypnea seems to have settled. Morning chest x-ray shows persistent bilateral pleural effusions and bibasilar atelectasis without discrete pneumonia. Midline incision continues to drain serous fluid. Laboratory studies continue to show a low platelet count but appears stable compared to yesterday. Laboratory studies also show a slight downtrend in leukocytosis, hemoglobin remains low but stable at 8.3.. Total bilirubin is slightly elevated at 1.4, remainder of liver function studies unimpressive. Objective - Vital Signs Vital signs: Vital Signs Temp 99.1 F 07/10/22 08:00 Pulse 96 07/10/22 11:00 Resp 23 07/10/22 11:00 BP 130/50 07/08/22 17:59 Pulse Ox 95 07/10/22 11:00 FiO2 35 07/07/22 20:00 Intake & Output 07/09/22 07/10/22 07/10/22 18:59 06:59 18:59 Intake Total 1380 2282 535 Output Total 440 1635 400 Balance 940 647 135 Weight 71.7 kg Intake: IV 1380 1240 535 0.9 140 240 60 Meropenem 500 mg In 100 100 Sodium Chloride 0.9% 100 ml @ 33.3 mls/hr IVPB Q24HR [facility] Rx#:[id number] Mvi, Adult No.4 with Vit 900 900 375 K 10 ml Trace (Conc-1Ml/ Dose) 1 ml Sodium Acetate 30 meq Potassium Chloride 20 meq Calcium Gluconate 1.5 gm Magnesium Sulfate gm 1 gm In Amino Acid 5%-D15w 1, 000 ml @ 75 mls/hr IV .BY DURATION [facility] Rx#: [id number] Sodium Chloride 0.9% 1, 40 000 ml @ 50 mls/hr IV . Q20H [facility] Rx#:[id number] metroNIDAZOLE-NS PMX 500 200 100 mg In Saline 1 100ml.bag @ 100 mls/hr IVPB Q8H [facility] Rx#:[id number] Intake, IV Titration 1042 Amount Sodium Acetate 30 meq 1042 Potassium Chloride 20 meq Calcium Gluconate 1.5 gm Magnesium Sulfate gm 1 gm In Amino Acid 5%-D15w 1,000 ml @ 75 mls/hr IV . BY DURATION [facility] Rx#: [id number] Output: Gastric Drainage 750 Drainage 100 270 100 Medial Abdomen 100 270 100 Urine 340 615 300 Other: Voiding Method Indwelling Catheter Indwelling Catheter Indwelling Catheter ABP, PAP, CO, CI - Last Documented Arterial Blood Pressure 126/49 - Constitutional Constitutional Comment(s): Appears fatigued, just at the dose of IV pain medication. Continues to display diffuse soft tissue edema throughout. - EENT Eyes: Present: PERRLA ENT: Present: NA/AT - Respiratory Respiratory: bilateral: CTA - Cardiovascular Rhythm: regular - Gastrointestinal Gastrointestinal Comment(s): Abdomen soft with mild diffuse tenderness. Ileostomy continues to show some hyperemic, slightly dusky mucosa but no efrain necrosis, remains secured at the level of the skin. No function yet. Ongoing serous drainage from midline incision without obvious infection. Abdominal drain in place with serous fluid. Jejunostomy in place. - Neurologic Neurologic: Present: CNII-XII intact - Musculoskeletal Musculoskeletal: Present: generalized weakness - Psychiatric Psychiatric: Present: A&O x's 3, appropriate affect, intact judgment & insight - Labs CBC & Chem 7: 07/10/22 04:45 07/10/22 04:30 Labs: Abnormal Lab Results - Last 24 Hours (Table) 07/09/22 07/09/22 07/09/22 Range/Units 11:56 17:49 23:28 WBC (3.8-10.6) k/uL RBC (3.80-5.40) m/uL Hgb (11.4-16.0) gm/dL Hct (34.0-46.0) % RDW (11.5-15.5) % Plt Count (150-450) k/uL Neutrophils # (Manual) (1.3-7.7) k/uL Lymphocytes # (Manual) (1.0-4.8) k/uL Metamyelocytes # (Man) (0) k/uL Sodium (137-145) mmol/L BUN (7-17) mg/dL Creatinine (0.52-1.04) mg/dL Glucose (74-99) mg/dL POC Glucose (mg/dL) 156 H 194 H 139 H (70-110) mg/dL Calcium (8.4-10.2) mg/dL Total Bilirubin (0.2-1.3) mg/dL ALT (4-34) U/L Total Protein (6.3-8.2) g/dL Albumin (3.5-5.0) g/dL 07/10/22 07/10/22 07/10/22 Range/Units 04:30 04:45 06:07 WBC 12.5 H (3.8-10.6) k/uL RBC 2.79 L (3.80-5.40) m/uL Hgb 8.3 L (11.4-16.0) gm/dL Hct 25.5 L (34.0-46.0) % RDW 17.6 H (11.5-15.5) % Plt Count 57 L (150-450) k/uL Neutrophils # (Manual) 10.50 H (1.3-7.7) k/uL Lymphocytes # (Manual) 0.88 L (1.0-4.8) k/uL Metamyelocytes # (Man) 0.13 H (0) k/uL Sodium 131 L (137-145) mmol/L BUN 88 H (7-17) mg/dL Creatinine 3.10 H (0.52-1.04) mg/dL Glucose 150 H (74-99) mg/dL POC Glucose (mg/dL) 173 H (70-110) mg/dL Calcium 6.6 L (8.4-10.2) mg/dL Total Bilirubin 1.4 H (0.2-1.3) mg/dL ALT 45 H (4-34) U/L Total Protein 2.9 L (6.3-8.2) g/dL Albumin 1.4 L (3.5-5.0) g/dL Microbiology - Last 24 Hours (Table) 07/03/22 14:35 Blood Culture - Final Blood 07/03/22 14:38 Blood Culture - Final Blood - Imaging and Cardiology Chest x-ray: report reviewed, image reviewed Assessment and Plan Assessment: 81-year-old lady with presenting small bowel obstruction, status post initial abdominal exploration, stage small bowel resection and end ileostomy creation. Small bowel mucosa looking somewhat dusky but no conclusive efrain ischemia. Thrombocytopenia, multifactorial, appears stable on today's labs. Acute on chronic kidney injury. Presenting sepsis, status post initial abdominal source control and continuing with IV meropenem. Chest x-ray today inconclusive for pneumonia. Plan: Continue with ICU care and medical support. I expect her to have a prolonged ileus, continue with TPN. May try clamping nasogastric tube today, resume mcgregor ction patient has issues with abdominal distention nausea or worsening pain. I advised the patient to expect a slow recovery giving her pre-existing renal impairment. We'll continue to keep a close eye on the ileostomy. Hopefully the serous drainage from her midline incision represents a simple subcutaneous seroma that is draining. Continue with local care. Time with Patient: Greater than 30
--- NOTE | 2022-07-10 11:43 | P.PN ---
Subjective Patient is seen in follow-up for acute kidney injury on chronic kidney disease. Received 80 mg IV Lasix yesterday. Urine output now 50-75 mL an hour. Underwent small bowel resection 07/03/2022 and another surgery with segmental small bowel resection, formation of ileostomy with mucous fistula and placement of PEG tube 07/05/2022. Patient has been bleeding from the ileostomy site and has received blood transfusions as well as platelets and FFP. Also received IV DDAVP. Extubated 07/07/2022. Last dialysis was 07/08/2022. Vital signs stable. General: Resting in bed. HEENT: NG tube noted. LUNGS: No audible rhonchi or wheezes. HEART: Regular rate and rhythm. ABDOMEN: Ileostomy and PEG tube noted. EXTREMITITES: 1+ edema. Objective - Vital Signs Vital signs: Vital Signs Temp 99.1 F 07/10/22 08:00 Pulse 96 07/10/22 11:37 Resp 23 07/10/22 11:00 BP 130/50 07/08/22 17:59 Pulse Ox 95 07/10/22 11:00 FiO2 35 07/07/22 20:00 Intake & Output 07/09/22 07/10/22 07/10/22 18:59 06:59 18:59 Intake Total 1380 2282 535 Output Total 440 1635 400 Balance 940 647 135 Weight 71.7 kg Intake: IV 1380 1240 535 0.9 140 240 60 Meropenem 500 mg In 100 100 Sodium Chloride 0.9% 100 ml @ 33.3 mls/hr IVPB Q24HR [facility] Rx#:[id number] Mvi, Adult No.4 with Vit 900 900 375 K 10 ml Trace (Conc-1Ml/ Dose) 1 ml Sodium Acetate 30 meq Potassium Chloride 20 meq Calcium Gluconate 1.5 gm Magnesium Sulfate gm 1 gm In Amino Acid 5%-D15w 1, 000 ml @ 75 mls/hr IV .BY DURATION [facility] Rx#: [id number] Sodium Chloride 0.9% 1, 40 000 ml @ 50 mls/hr IV . Q20H [facility] Rx#:[id number] metroNIDAZOLE-NS PMX 500 200 100 mg In Saline 1 100ml.bag @ 100 mls/hr IVPB Q8H [facility] Rx#:[id number] Intake, IV Titration 1042 Amount Sodium Acetate 30 meq 1042 Potassium Chloride 20 meq Calcium Gluconate 1.5 gm Magnesium Sulfate gm 1 gm In Amino Acid 5%-D15w 1,000 ml @ 75 mls/hr IV . BY DURATION [facility] Rx#: [id number] Output: Gastric Drainage 750 Drainage 100 270 100 Medial Abdomen 100 270 100 Urine 340 615 300 Other: Voiding Method Indwelling Catheter Indwelling Catheter Indwelling Catheter ABP, PAP, CO, CI - Last Documented Arterial Blood Pressure 126/49 - Labs CBC & Chem 7: 07/10/22 04:45 07/10/22 04:30 Labs: Abnormal Lab Results - Last 24 Hours (Table) 07/09/22 07/09/22 07/09/22 Range/Units 11:56 17:49 23:28 WBC (3.8-10.6) k/uL RBC (3.80-5.40) m/uL Hgb (11.4-16.0) gm/dL Hct (34.0-46.0) % RDW (11.5-15.5) % Plt Count (150-450) k/uL Neutrophils # (Manual) (1.3-7.7) k/uL Lymphocytes # (Manual) (1.0-4.8) k/uL Metamyelocytes # (Man) (0) k/uL Sodium (137-145) mmol/L BUN (7-17) mg/dL Creatinine (0.52-1.04) mg/dL Glucose (74-99) mg/dL POC Glucose (mg/dL) 156 H 194 H 139 H (70-110) mg/dL Calcium (8.4-10.2) mg/dL Total Bilirubin (0.2-1.3) mg/dL ALT (4-34) U/L Total Protein (6.3-8.2) g/dL Albumin (3.5-5.0) g/dL 07/10/22 07/10/22 07/10/22 Range/Units 04:30 04:45 06:07 WBC 12.5 H (3.8-10.6) k/uL RBC 2.79 L (3.80-5.40) m/uL Hgb 8.3 L (11.4-16.0) gm/dL Hct 25.5 L (34.0-46.0) % RDW 17.6 H (11.5-15.5) % Plt Count 57 L (150-450) k/uL Neutrophils # (Manual) 10.50 H (1.3-7.7) k/uL Lymphocytes # (Manual) 0.88 L (1.0-4.8) k/uL Metamyelocytes # (Man) 0.13 H (0) k/uL Sodium 131 L (137-145) mmol/L BUN 88 H (7-17) mg/dL Creatinine 3.10 H (0.52-1.04) mg/dL Glucose 150 H (74-99) mg/dL POC Glucose (mg/dL) 173 H (70-110) mg/dL Calcium 6.6 L (8.4-10.2) mg/dL Total Bilirubin 1.4 H (0.2-1.3) mg/dL ALT 45 H (4-34) U/L Total Protein 2.9 L (6.3-8.2) g/dL Albumin 1.4 L (3.5-5.0) g/dL Microbiology - Last 24 Hours (Table) 07/03/22 14:35 Blood Culture - Final Blood 07/03/22 14:38 Blood Culture - Final Blood Assessment and Plan Plan: Assessment: 1. Acute kidney injury secondary to ATN secondary to hypotension/septic shock. Creatinine peaked at 3.93 this admission. No hydronephrosis noted on CAT scan. Started on hemodialysis 07/04/2022. Has a femoral catheter. Last dialysis 07/08/2022. Status post 80 mg IV Lasix given 07/09/2022. Urine output now 50- 75 mL an hour. 2. Chronic kidney disease stage IV with baseline creatinine near 2 secondary to nephrosclerosis. 3. Metabolic acidosis secondary to acute kidney injury and lactic acidosis s/p bicarbonate drip. Improved. 4. Hyperkalemia secondary to acute kidney injury, acidosis. Improved with medical management and HD. 5. Small bowel obstruction with ischemic bowel status post exploratory laparotomy with segmental small bowel resection 07/03/2022. Underwent another exploratory laparotomy with segmental small bowel resection, ileostomy formation and PEG tube placement 07/05/2022. 6. Hypocalcemia secondary to acute kidney injury. Replaced. Corrected calcium normal. Ionized calcium normal. 7. Acute blood loss anemia status post blood transfusions, FFP and platelets. Also received IV DDAVP. Hemoglobin stable at 8.3. Plan: Last hemodialysis 07/08/2022. Continue to monitor for recovery. Status post IV Lasix given 07/09/2022. On TPN. Avoid nephrotoxins. Continue to monitor renal function and urine output.
--- NOTE | 2022-07-10 11:55 | P.PN ---
Subjective Progress Note Date: 07/10/22 Principal diagnosis: status post exploratory laparotomy with segmental bowel resection for small bowel obstruction I'm seeing this patient in new consultation today 07/04/2022 for ICU management post exploratory laparotomy and segmental small bowel resection for a small bowel obstruction. Patient is a 81-year-old white female with past medical history significant for irritable bowel syndrome, peptic ulcers with previous anemia and PRBC transfusions, GERD, hiatal hernia, chronic kidney disease stage IV, hypothyroidism, hypertension. Patient presented to the emergency room on July 02 with a chief complaint of abdominal pain, nausea, and vomiting for approximately one day. Patient reportedly had a bowel movement the day prior. A follow-up CT of the abdomen and pelvis without contrast showed fluid-filled prominent small bowel loops within the pelvis that could correlate for ileus. A low-grade small bowel obstruction was felt to be less likely at that time. There was also some ascites, and a small lobular liver. NG tube was originally inserted for gastric decompression, and the patient was observed overnight. The patient's condition progressively worsened, and was taken to surgery yesterday. Patient underwent an exploratory laparotomy with segmental small bowel resection. The abdomen was left open, and a wound VAC was applied. Postoperatively, the patient was left on the mechanical ventilator, and is currently in the intensive care unit. She is synchronous with the ventilator. Initial ventilator settings were assist control, respiratory rate 14, tidal volume 350, FiO2 100%, and a PEEP of 5. Initial chest x-ray showed the endotracheal tube 2.4 cm from the amanda, NG tube was seen within the stomach, and there was some pulmonary vascular congestion without overt heart failure. Initial ABG on these settings showed a pO2 of 262, pCO2 of 50, pH of 7.12. Respiratory rate was increased to 26, tidal volume was increased to 400, and FiO2 reduced to 40%. A follow-up ABG showed a pO2 of 134, pCO2 of 34, and pH is 7.24. Propofol infusing at 15 mics per kilogram per minute for sedation. Patient was given 3 A of sodium bicarb and started on a sodium bicarb infusion 3 amps in D5W at 125 ML's per hour. There was an acute drop in hemoglobin from 10.8 g/dL preoperatively to 5.5 g/dL postoperatively. Patient is currently receiving 2 units PRBC transfusion. Patient was also fluid resuscitated with a total of 4 L normal saline. Patient's hypotension was refractory to fluid resuscitation, and was subsequently started on a norepinephrine infusion which is currently infusing at 0.12 mics per kilogram per minute through a right IJ double-lumen central line catheter. NG tube has a small amount of brown-green bilious drainage. Most recent CBC shows a WBC count of 4.8, hemoglobin 5.5, hematocrit 18.4, platelets 113,000. Most recent BMP postoperatively shows a sodium of 137, potassium 6.7, chloride 115, serum CO2 10, BUN 76, creatinine 4.14, glucose 96. Patient's hyperkalemia was treated with 8 units of insulin, an amp of D50W, 2 g of calcium gluconate, as well as the as the above-mentioned sodium bicarbonate. Patient has a component of acute on chronic kidney injury, and is currently anuric. Patient's lactic was also 6.6, and this will be rechecked. LFTs are mildly elevated. Patient was started on empiric Zosyn. The plan per surgical services, is to take the patient back to the operating room on Monday, once more hemodynamically stable. Shunt was reevaluated today on 07/05/2022, remains in the ICU, intubated and mechanically ventilated. Patient is on assist control rate of 26 tidal volume 400 FiO2 40% PEEP of 5 ABG showed a pO2 of 99 pCO2 39 pH of 7.43, hence no vent changes were made. Patient is on norepinephrine at 0.18 mcg/kg/m propofol at 10 mcg/kg/m she is also on bicarb drip which I have discontinued today, patient received dialysis last night. She is scheduled to have reexploration today and possibly closure of her abdominal incision sometime later today. Hence no plans to hold sedation or assess weaning at this point since the patient is going back to surgery. Chest x-ray showed mostly small left pleural effusion and atelectasis minimal increased interstitial densities. Labs were reviewed her WBC count is 9 hemoglobin 11.2. Platelets are 78,000 basic metabolic profile is normal however her BUN is 58 creatinine 3.03. Her enzymes remain elevated with AST of 419 ALT of 393. Antibiotics reno, patient is on Merrem and she is also on metronidazole. Patient was reevaluated today on 07/06/2022, remains intubated and mechanically ventilated. On yesterday patient underwent another exploratory laparotomy segmental small bowel resection, formation of ileostomy with mucous fistula placement of feeding tube and MAGNOLIA drain. Postoperatively patient was sent back to the ICU. She is now on assist control rate of 26 tidal volume 400 FiO2 40% and PEEP of 5 ABG showed a pO2 of 117 pCO2 44 pH of 7.38. Patient is still requiring propofol at 10 mcg/kg/m and norepinephrine at 0.06 mcg/kg/m IV fluid is 0.9 normal saline at 50 mL an hour. Patient is undergoing intermittent hemodialysis. She had some intermittent bleeding at the surgical site, and she received so far a total of 4 units of packed RBCs, 2 units of fresh was a plasma and 1 unit of platelets. Chest x-ray showed small left pleural effusion and atelectasis. WBC count today is 8.7 hemoglobin is 9.1, electrolytes are normal renal profile showed a BUN of 59 and creatinine of 3.2, calcium is up to 6.7 liver enzymes are improving compared to levels in the last few days definitely better and improved Reevaluated today on 07/07/2022, patient remains in the ICU, intubated and mechanically ventilated. She is on assist control rate of 26 tidal volume 400 FiO2 40% and PEEP of 5 ABG showed a pO2 of 117 pCO2 39 pH of 7.46 as I cut down her FiO2 to 35%. Patient is on propofol at 5 mcg/kg/m TPN at 30 mL per hour, she is also on norepinephrine at 0.02 mcg/m and IV fluid at 20 mL per hour. Patient had her last hemodialysis on 07/06 and removed 800 mL of fluid. Patient continues to have very low platelets in the 43,000 range, and I'm recommending 2 units of platelets and the patient is having bleeding into the ostomy bag patient has received a total of 4 units of packed RBCs units of fresh frozen plasma and 1 unit of platelets since admission. Clinically the patient extremely frail and weak, nonetheless she is arousable, opens her eyes, follows simple instructions seems to be very frail and weak. Discontinue propofol gave her a very short trial of pressure support of 14 and CPAP, however the patient was not moving enough tidal volume to continue with the weaning trial I believe the patient needs to be a bit more awake before we could proceed any further. In the meantime I have her off propofol completely. Antibiotics reno she remains on Merrem and Flagyl. Sputum culture has been positive for Klebsiella oxytoca, and that is well covered by Merrem on board. Patient continues to have a relatively low calcium however correcting her corrected calcium to her low albumin is actually in the range of 9-9.5, and there is no reason to continue giving the patient calcium gluconate for a calcium of 6.5 or higher her thyroid profile today showed elevated TSH and low T4 consistent with hypothyroidism, patient is on levothyroxine at 75 g, will increase the dose to 100. Chest x- ray showed left lower lobe atelectasis and possibly a small left pleural effusion. Reevaluated today on 07/08/2022, patient remains in the ICU, patient was extubated yesterday.Underwent small bowel resection 07/03/2022 and another surgery with segmental small bowel resection, formation of ileostomy with mucous fistula and placement of PEG tube 07/05/2022. Patient has been bleeding from the ileostomy site and has received blood transfusions as well as platelets and FFP. Also received IV DDAVP. Extubated 07/07/2022. So far the patient seems to have tolerated the extubation quite well. Patient is on 2 L nasal cannula. Last night she was on BiPAP 10/6 and 35%. Patient remains very frail and extremely weak. Not requiring any pressors today. WBC count is 12.9 hemoglobin is 8, platelets are up to 98,000. Basic metabolic profile is normal however her BUN is 65 creatinine 3.35, being closely followed by nephrology for her acute kidney injury, and planning hemodialysis today with a goal of 1 L ultrafiltration. Urine output is roughly 15-20 mL per hour no hydronephrosis on CT scanned. Hair hemodialysis started on 07/04 and she had a femoral catheter for dialysis. Patient remains on Merrem and metronidazole for her abdominal sepsis Reevaluated today on 07/09/2022, patient continues to do fairly well considering her multiple medical problems, she tolerated the extubation over the last 2 days quite well, patient is on 2 L nasal cannula, not in any distress. Remains on Merrem and Flagyl she received a dose of Lasix of 80 mg IV push today nephrology not planning hemodialysis on this patient today, chest x-ray showed small bilateral pleural effusion and congestive changes IVC there is a picture of fluid overload surprisingly the patient is doing better than expected considering the abnormality noted on the chest x-ray. Remains on TPN her IV fluids at KVO her urine output is anywhere between 15 up to 20 mL per hour hopefully will pickup after giving him Lasix dose 80 mg IV push. Continues to have nasogastric tube in place, WBC 13.5 hemoglobin 8.2. Normal renal profile showed a BUN of 65 creatinine 2.53 Reevaluated today on 07/10/2022, patient remains in the ICU, she is on 2 L nasal cannula, remains on TPN at 76 mL per hour, remains on antibiotics in the form of Merrem and Flagyl. Sputum was positive for Klebsiella oxytoca. However her antibiotics are initially given for her abdominal sepsis. Nonetheless that will cover her Klebsiella oxytoca in the sputum. Patient is relatively asymptomatic, continues to have low platelets in the range of 57. Hence we continue to hold heparin subcu. WBC count is 12.5 hemoglobin 8.3 basic metabolic profile is normal BUN is 88 creatinine 3.10. Patient was given 80 mg of Lasix IV push, there was minimal urine output, slight improvement noted overall in her urine output. Patient is scheduled to have hemodialysis again tomorrow. Minimal ser osanguineous fluid noted in the ileostomy tube. Her nasogastric tube had about 250 ML overnight. Patient is on TPN and jejunostomy is in place. Continues to have some serous drainage from the midline incision, and continues to have low platelets, however I don't see the need for more platelet transfusion at this point but we'll continue to hold heparin. Objective - Vital Signs Vital signs: Vital Signs Temp 99.1 F 07/10/22 08:00 Pulse 94 07/10/22 11:44 Resp 23 07/10/22 11:00 BP 130/50 07/08/22 17:59 Pulse Ox 95 07/10/22 11:00 FiO2 35 07/07/22 20:00 Intake & Output 07/09/22 07/10/22 07/10/22 18:59 06:59 18:59 Intake Total 1380 2282 535 Output Total 440 1635 400 Balance 940 647 135 Weight 71.7 kg Intake: IV 1380 1240 535 0.9 140 240 60 Meropenem 500 mg In 100 100 Sodium Chloride 0.9% 100 ml @ 33.3 mls/hr IVPB Q24HR [facility] Rx#:[id number] Mvi, Adult No.4 with Vit 900 900 375 K 10 ml Trace (Conc-1Ml/ Dose) 1 ml Sodium Acetate 30 meq Potassium Chloride 20 meq Calcium Gluconate 1.5 gm Magnesium Sulfate gm 1 gm In Amino Acid 5%-D15w 1, 000 ml @ 75 mls/hr IV .BY DURATION [facility] Rx#: [id number] Sodium Chloride 0.9% 1, 40 000 ml @ 50 mls/hr IV . Q20H [facility] Rx#:[id number] metroNIDAZOLE-NS PMX 500 200 100 mg In Saline 1 100ml.bag @ 100 mls/hr IVPB Q8H [facility] Rx#:[id number] Intake, IV Titration 1042 Amount Sodium Acetate 30 meq 1042 Potassium Chloride 20 meq Calcium Gluconate 1.5 gm Magnesium Sulfate gm 1 gm In Amino Acid 5%-D15w 1,000 ml @ 75 mls/hr IV . BY DURATION [facility] Rx#: [id number] Output: Gastric Drainage 750 Drainage 100 270 100 Medial Abdomen 100 270 100 Urine 340 615 300 Other: Voiding Method Indwelling Catheter Indwelling Catheter Indwelling Catheter ABP, PAP, CO, CI - Last Documented Arterial Blood Pressure 126/49 - Exam GENERAL EXAM: Revealed an 81-year-old female, on 2 L nasal cannula, in no distress. HEAD: Normocephalic and atraumatic HEENT: PERRLA, EOMI, nonicteric, neck masses no JVD, nasogastric tube is intact, continues to have significant output from nasogastric tube CHEST: No chest wall deformity. LUNGS: Diminished breath sounds , minimal crackles bilaterally. CVS: S1 and S2 normal with no audible murmur, regular rhythm. No extra heart so unds. ABDOMEN: Postsurgical ileostomy is noted, serosanguineous drainage noted in the ostomy bag. feeding tube is noted, and MAGNOLIA drains are noted SKIN: No rashes. CENTRAL NERVOUS SYSTEM: Generally weak, alert oriented 3, follows simple instructions no gross focal neurologic deficit except weakness. EXTREMITIES: 2+ bipedal edema noted. Diminished distal pulses Psychiatric: Normal mood, flat affect, normal mental status examination - Labs CBC & Chem 7: 07/10/22 04:45 07/10/22 04:30 Labs: Abnormal Lab Results - Last 24 Hours (Table) 07/09/22 07/09/22 07/09/22 Range/Units 11:56 17:49 23:28 WBC (3.8-10.6) k/uL RBC (3.80-5.40) m/uL Hgb (11.4-16.0) gm/dL Hct (34.0-46.0) % RDW (11.5-15.5) % Plt Count (150-450) k/uL Neutrophils # (Manual) (1.3-7.7) k/uL Lymphocytes # (Manual) (1.0-4.8) k/uL Metamyelocytes # (Man) (0) k/uL Sodium (137-145) mmol/L BUN (7-17) mg/dL Creatinine (0.52-1.04) mg/dL Glucose (74-99) mg/dL POC Glucose (mg/dL) 156 H 194 H 139 H (70-110) mg/dL Calcium (8.4-10.2) mg/dL Total Bilirubin (0.2-1.3) mg/dL ALT (4-34) U/L Total Protein (6.3-8.2) g/dL Albumin (3.5-5.0) g/dL 07/10/22 07/10/22 07/10/22 Range/Units 04:30 04:45 06:07 WBC 12.5 H (3.8-10.6) k/uL RBC 2.79 L (3.80-5.40) m/uL Hgb 8.3 L (11.4-16.0) gm/dL Hct 25.5 L (34.0-46.0) % RDW 17.6 H (11.5-15.5) % Plt Count 57 L (150-450) k/uL Neutrophils # (Manual) 10.50 H (1.3-7.7) k/uL Lymphocytes # (Manual) 0.88 L (1.0-4.8) k/uL Metamyelocytes # (Man) 0.13 H (0) k/uL Sodium 131 L (137-145) mmol/L BUN 88 H (7-17) mg/dL Creatinine 3.10 H (0.52-1.04) mg/dL Glucose 150 H (74-99) mg/dL POC Glucose (mg/dL) 173 H (70-110) mg/dL Calcium 6.6 L (8.4-10.2) mg/dL Total Bilirubin 1.4 H (0.2-1.3) mg/dL ALT 45 H (4-34) U/L Total Protein 2.9 L (6.3-8.2) g/dL Albumin 1.4 L (3.5-5.0) g/dL Microbiology - Last 24 Hours (Table) 07/03/22 14:35 Blood Culture - Final Blood 07/03/22 14:38 Blood Culture - Final Blood Assessment and Plan Assessment: Impression: Acute hypoxic respiratory failure secondary to abdominal sepsis and surgical abdomen requiring expiratory laparotomy, segmental small bowel resection for small bowel obstruction postoperative day #7 Status post repeat expiratory laparotomy segmental small bowel resection, ileostomy, feeding tube placement, and MAGNOLIA drains placement postoperative day #5 Septic shock secondary to abdominal sepsis requiring pressors. Thrombocytopenia secondary to sepsis and septic shock. Improving platelets on 07/08 98,000 Acute blood loss anemia with hypovolemia contributing to her hypotension, responded to blood transfusions and fresh was a plasma as well as platelets Acute on chronic kidney injury requiring hemodialysis Chronic kidney disease stage IV Shock liver Irritable bowel syndrome History of hiatal hernia History of GERD Hypothyroidism, thyroid dose has been increased. 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 Continue hemodialysis for acute on chronic kidney injury, intermittent trial of diuretics, urine output is picking up at times quite well. Last hemodialysis was on 07/09/19 Nutritional support/TPN Continue bronchodilators Continue antibiotics including Merrem and Flagyl, sputum is positive for Klebsiella oxytoca and that is sensitive to Merrem Continue GI and DVT prophylaxis, avoid heparin since the patient has low platelets We'll continue to monitor in the ICU Continue incentive spirometry. Will continue to follow Time with Patient: Less than 30
[2022-07-10 12:04] LABS: Glucose,Whole Blood 177 mg/dL (70-110)
[2022-07-10] MEDS ORDERED: POTASSIUM CHLORIDE IV SCH ×7 (18:00)
[2022-07-10] MEDS ORDERED: SODIUM ACETATE IV SCH ×7 (18:00)
[2022-07-10] MEDS ORDERED: CALCIUM GLUCONATE IV SCH ×7 (18:00)
[2022-07-10] MEDS ORDERED: [UNRECOGNIZED DRUG - OTHER] IV SCH ×7 (18:00)
[2022-07-10 18:08] LABS: Glucose,Whole Blood 156 mg/dL (70-110)
[2022-07-10] MEDS: NOREPINEPHRINE 32 MG in SODIUM CHLORIDE 0.9% 218 ML IV SCH (19:57)
[2022-07-10] MEDS: ALPRAZolam 0.5 MG TAB PO SCH (19:57)
[2022-07-10 23:37] LABS: Glucose,Whole Blood 178 mg/dL (70-110)
[2022-07-11] MEDS: INSULIN ASPART (NovoLOG) 100 UNIT/ML VIAL SQ SCH ×4 (01:45→18:29)
[2022-07-11] MEDS: metroNIDAZOLE-NS PMX 500 MG in SALINE 1 100ML.BAG IVPB SCH (01:45)
[2022-07-11 06:01] LABS: Anisocytosis Slight; HGB 9.4 gm/dL (11.4-16.0); MCH 29.9 pg (25.0-35.0); MCHC 32.3 g/dL (31.0-37.0); MCV 92.4 fL (80.0-100.0); RBC 3.14 m/uL (3.80-5.40); RDW 17.6 % (11.5-15.5); WBC 13.1 k/uL (3.8-10.6)
[2022-07-11 06:03] LABS: Albumin 1.4 g/dL (3.5-5.0); Calcium 6.8 mg/dL (8.4-10.2); Magnesium 2.4 mg/dL (1.6-2.3); Phosphorus 3.2 mg/dL (2.5-4.5); Platelet Count 100 k/uL (150-450); Potassium 4.2 mmol/L (3.5-5.1); Total Bilirubin 1.2 mg/dL (0.2-1.3)
[2022-07-11 06:43] LABS: Band Neutrophils % 3 %; Eosinophils # (M) 0.13 k/uL (0-0.7); Lymphocytes # (M) 1.18 k/uL (1.0-4.8); Metamyelocytes # (M) 0.13 k/uL (0); Metamyelocytes % 1 %; Monocytes # (M) 0.66 k/uL (0-1.0); Neutrophils % (M) 81 %; Nucleated Red Blood Cells 0 /100 WBC (0-0); Total Cells Counted 100
[2022-07-11 06:44] LABS: Target Cells Present
[2022-07-11 06:46] LABS: Glucose,Whole Blood 132 mg/dL (70-110)
[2022-07-11] MEDS: LEVOTHYROXINE 100 MCG TAB PO SCH (06:54)
--- NOTE | 2022-07-11 08:22 | P.PN ---
Subjective Progress Note Date: 07/11/22 Principal diagnosis: Ischemic bowel The patient is seen on rounds. Responds chest and no appropriately. Denies any pain. Objective - Vital Signs Vital signs: Vital Signs Temp 98.2 F 07/11/22 04:00 Pulse 92 07/11/22 07:00 Resp 22 07/11/22 07:00 BP 130/50 07/08/22 17:59 Pulse Ox 96 07/11/22 07:00 FiO2 35 07/07/22 20:00 Intake & Output 07/10/22 07/11/22 07/11/22 18:59 06:59 18:59 Intake Total 1170 195 10 Output Total 665 615 335 Balance 505 -420 -325 Weight 71.6 kg Intake: IV 1170 195 10 0.9 170 120 10 Meropenem 500 mg In 100 Sodium Chloride 0.9% 100 ml @ 33.3 mls/hr IVPB Q24HR [facility] Rx#:[id number] Mvi, Adult No.4 with Vit 900 75 K 10 ml Trace (Conc-1Ml/ Dose) 1 ml Sodium Acetate 30 meq Potassium Chloride 20 meq Calcium Gluconate 1.5 gm Magnesium Sulfate gm 1 gm In Amino Acid 5%-D15w 1, 000 ml @ 75 mls/hr IV .BY DURATION [facility] Rx#: [id number] Output: Drainage 100 180 Medial Abdomen 100 180 Urine 565 435 60 Other 275 Other: Voiding Method Indwelling Catheter Indwelling Catheter ABP, PAP, CO, CI - Last Documented Arterial Blood Pressure 119/43 - Constitutional General appearance: Present: cooperative, no acute distress - Gastrointestinal General gastrointestinal: Present: absent bowel sounds, soft Localized gastrointestinal: surgical scar: diffuse (MAGNOLIA is serous. There is serous drainage from the incision. No cellulitis. Ostomy shows mucosal slough. Output is been strictly serosanguineous. No stool) - Labs CBC & Chem 7: 07/11/22 05:01 07/11/22 05:01 Labs: Abnormal Lab Results - Last 24 Hours (Table) 07/10/22 07/10/22 07/10/22 Range/Units 12:02 18:07 23:34 WBC (3.8-10.6) k/uL RBC (3.80-5.40) m/uL Hgb (11.4-16.0) gm/dL Hct (34.0-46.0) % RDW (11.5-15.5) % Plt Count (150-450) k/uL Neutrophils # (Manual) (1.3-7.7) k/uL Metamyelocytes # (Man) (0) k/uL Sodium (137-145) mmol/L BUN (7-17) mg/dL Creatinine (0.52-1.04) mg/dL Glucose (74-99) mg/dL POC Glucose (mg/dL) 177 H 156 H 178 H (70-110) mg/dL Calcium (8.4-10.2) mg/dL Magnesium (1.6-2.3) mg/dL Total Protein (6.3-8.2) g/dL Albumin (3.5-5.0) g/dL 07/11/22 07/11/22 07/11/22 Range/Units 05:01 05:01 06:44 WBC 13.1 H (3.8-10.6) k/uL RBC 3.14 L (3.80-5.40) m/uL Hgb 9.4 L (11.4-16.0) gm/dL Hct 29.0 L (34.0-46.0) % RDW 17.6 H (11.5-15.5) % Plt Count 100 L D (150-450) k/uL Neutrophils # (Manual) 11.00 H (1.3-7.7) k/uL Metamyelocytes # (Man) 0.13 H (0) k/uL Sodium 130 L (137-145) mmol/L BUN 111 H* (7-17) mg/dL Creatinine 3.40 H (0.52-1.04) mg/dL Glucose 133 H (74-99) mg/dL POC Glucose (mg/dL) 132 H (70-110) mg/dL Calcium 6.8 L (8.4-10.2) mg/dL Magnesium 2.4 H (1.6-2.3) mg/dL Total Protein 3.0 L (6.3-8.2) g/dL Albumin 1.4 L (3.5-5.0) g/dL Assessment and Plan (1) Abdominal pain Current Visit: Yes Status: Acute Code(s): R10.9 - UNSPECIFIED ABDOMINAL PAIN SNOMED Code(s): 20728093 (2) Ischemic bowel disease Current Visit: Yes Status: Acute Code(s): K55.9 - VASCULAR DISORDER OF INTESTINE, UNSPECIFIED SNOMED Code(s): 55395479 (3) Renal insufficiency Current Visit: No Status: Acute Code(s): N28.9 - DISORDER OF KIDNEY AND URETER, UNSPECIFIED SNOMED Code(s): 623943919 (4) Shock liver Current Visit: Yes Status: Acute Code(s): K72.00 - ACUTE AND SUBACUTE HEPATIC FAILURE WITHOUT COMA SNOMED Code(s): 869938337 (5) Coagulopathy Current Visit: Yes Status: Acute Code(s): D68.9 - COAGULATION DEFECT, UNSPECIFIED SNOMED Code(s): 02181801 (6) Thrombocytopenia Current Visit: Yes Status: Acute Code(s): D69.6 - THROMBOCYTOPENIA, UNSPECIFIED SNOMED Code(s): 297411130 Plan: Patient is having better urine output. The output from the MAGNOLIA and abdominal incision are likely due to her poor nutritional status. Her albumin is only 1.4. She is receiving TPN. We'll monitor the ostomy closely. I'll change the appliance myself tomorrow and check to see whether it's just the superficial mucosa that's sloughing. Otherwise I would not start any TPN until she begins having actual stool output. Progressing slowly.
[2022-07-11] MEDS: IPRATROPIUM-ALBUTEROL 3 ML NEB INHALATION SCH ×4 (08:24→20:57)
[2022-07-11] MEDS: [UNRECOGNIZED DRUG - OTHER] IV SCH ×14 (08:29→10:32)
[2022-07-11] MEDS: PANTOPRAZOLE 40 MG/10 ML VIAL IVP SCH (08:29)
[2022-07-11] MEDS: SODIUM ACETATE IV SCH ×20 (08:29→23:11)
[2022-07-11] MEDS: MEROPENEM 500 MG in SODIUM CHLORIDE 0.9% 100 ML IVPB SCH (08:29)
[2022-07-11] MEDS: CALCIUM GLUCONATE IV SCH ×20 (08:29→23:11)
[2022-07-11] MEDS: POTASSIUM CHLORIDE IV SCH ×20 (08:29→23:11)
[2022-07-11] MEDS: FAT EMULSION 20% 250 ML IV SCH ×2 (08:30→16:23)
[2022-07-11] MEDS: allopurinoL 100 MG TAB PO SCH (10:32)
[2022-07-11] MEDS: CITALOPRAM HYDROBROMIDE 20 MG TAB PO SCH (10:32)
[2022-07-11] MEDS: CHOLECALCIFEROL 10 MCG (400 IU) TABLET PO SCH (10:32)
[2022-07-11] MEDS: TAMSULOSIN 0.4 MG CAP.ER.24H PO SCH (10:33)
[2022-07-11] MEDS: FERROUS SULFATE 325 MG TAB PO SCH (10:33)
[2022-07-11] MEDS: MORPHINE SULFATE 4 MG/ML SYRINGE IV PRN ×2 (10:33→16:22)
[2022-07-11] MEDS: CYANOCOBALAMIN 500 MCG TAB PO SCH (10:33)
--- NOTE | 2022-07-11 11:25 | P.PN ---
Subjective Progress Note Date: 07/11/22 I'm seeing this patient in new consultation today 07/04/2022 for ICU management post exploratory laparotomy and segmental small bowel resection for a small bowel obstruction. Patient is a 81-year-old white female with past medical history significant for irritable bowel syndrome, peptic ulcers with previous anemia and PRBC transfusions, GERD, hiatal hernia, chronic kidney disease stage IV, hypothyroidism, hypertension. Patient presented to the emergency room on July 02 with a chief complaint of abdominal pain, nausea, and vomiting for approximately one day. Patient reportedly had a bowel movement the day prior. A follow-up CT of the abdomen and pelvis without contrast showed fluid-filled prominent small bowel loops within the pelvis that could correlate for ileus. A low-grade small bowel obstruction was felt to be less likely at that time. There was also some ascites, and a small lobular liver. NG tube was originally inserted for gastric decompression, and the patient was observed overnight. The patient's condition progressively worsened, and was taken to surgery yesterday. Patient underwent an exploratory laparotomy with segmental small bowel resection. The abdomen was left open, and a wound VAC was applied. Postoperatively, the patient was left on the mechanical ventilator, and is currently in the intensive care unit. She is synchronous with the ventilator. Initial ventilator settings were assist control, respiratory rate 14, tidal volume 350, FiO2 100%, and a PEEP of 5. Initial chest x-ray showed the endotracheal tube 2.4 cm from the amanda, NG tube was seen within the stomach, and there was some pulmonary vascular congestion without overt heart failure. Initial ABG on these settings showed a pO2 of 262, pCO2 of 50, pH of 7.12. Respiratory rate was increased to 26, tidal volume was increased to 400, and FiO2 reduced to 40%. A follow-up ABG showed a pO2 of 134, pCO2 of 34, and pH is 7.24. Propofol infusing at 15 mics per kilogram per minute for sedation. Patient was given 3 A of sodium bicarb and started on a sodium bicarb infusion 3 amps in D5W at 125 ML's per hour. There was an acute drop in hemoglobin from 10.8 g/dL preoperatively to 5.5 g/dL postoperatively. Patient is currently receiving 2 units PRBC transfusion. Patient was also fluid resuscitated with a total of 4 L normal saline. Patient's hypotension was refractory to fluid resuscitation, and was subsequently started on a norepinephrine infusion which is currently infusing at 0.12 mics per kilogram per minute through a right IJ double-lumen central line catheter. NG tube has a small amount of brown-green bilious drainage. Most recent CBC shows a WBC count of 4.8, hemoglobin 5.5, hematocrit 18.4, platelets 113,000. Most recent BMP postoperatively shows a sodium of 137, potassium 6.7, chloride 115, serum CO2 10, BUN 76, creatinine 4.14, glucose 96. Patient's hyperkalemia was treated with 8 units of insulin, an amp of D50W, 2 g of calcium gluconate, as well as the as the above-mentioned sodium bicarbonate. Patient has a component of acute on chronic kidney injury, and is currently anuric. Patient's lactic was also 6.6, and this will be rechecked. LFTs are mildly elevated. Patient was started on empiric Zosyn. The plan per surgical services, is to take the patient back to the operating room on Monday, once more hemodynamically stable. Shunt was reevaluated today on 07/05/2022, remains in the ICU, intubated and mechanically ventilated. Patient is on assist control rate of 26 tidal volume 400 FiO2 40% PEEP of 5 ABG showed a pO2 of 99 pCO2 39 pH of 7.43, hence no vent changes were made. Patient is on norepinephrine at 0.18 mcg/kg/m propofol at 10 mcg/kg/m she is also on bicarb drip which I have discontinued today, patient received dialysis last night. She is scheduled to have reexploration today and possibly closure of her abdominal incision sometime later today. Hence no plans to hold sedation or assess weaning at this point since the patient is going back to surgery. Chest x-ray showed mostly small left pleural effusion and atelectasis minimal increased interstitial densities. Labs were reviewed her WBC count is 9 hemoglobin 11.2. Platelets are 78,000 basic metabolic profile is normal however her BUN is 58 creatinine 3.03. Her enzymes remain elevated with AST of 419 ALT of 393. Antibiotics reno, patient is on Merrem and she is also o n metronidazole. Patient was reevaluated today on 07/06/2022, remains intubated and mechanically ventilated. On 07/05/yesterday patient underwent another exploratory laparotomy segmental small bowel resection, formation of ileostomy with mucous fistula placement of feeding tube and MAGNOLIA drain. Postoperatively patient was sent back to the ICU. She is now on assist control rate of 26 tidal volume 400 FiO2 40% and PEEP of 5 ABG showed a pO2 of 117 pCO2 44 pH of 7.38. Patient is still requiring propofol at 10 mcg/kg/m and norepinephrine at 0.06 mcg/kg/m IV fluid is 0.9 normal saline at 50 mL an hour. Patient is undergoing intermittent hemodialysis. She had some intermittent bleeding at the surgical site, and she received so far a total of 4 units of packed RBCs, 2 units of fresh was a plasma and 1 unit of platelets. Chest x-ray showed small left pleural effusion and atelectasis. WBC count today is 8.7 hemoglobin is 9.1, electrolytes are normal renal profile showed a BUN of 59 and creatinine of 3.2, calcium is up to 6.7 liver enzymes are improving compared to levels in the last few days definitely better and improved Reevaluated today on 07/07/2022, patient remains in the ICU, intubated and mechanically ventilated. She is on assist control rate of 26 tidal volume 400 FiO2 40% and PEEP of 5 ABG showed a pO2 of 117 pCO2 39 pH of 7.46 as I cut down her FiO2 to 35%. Patient is on propofol at 5 mcg/kg/m TPN at 30 mL per hour, she is also on norepinephrine at 0.02 mcg/m and IV fluid at 20 mL per hour. Patient had her last hemodialysis on 07/06 and removed 800 mL of fluid. Patient continues to have very low platelets in the 43,000 range, and I'm recommending 2 units of platelets and the patient is having bleeding into the ostomy bag patient has received a total of 4 units of packed RBCs units of fresh frozen plasma and 1 unit of platelets since admission. Clinically the patient extremely frail and weak, nonetheless she is arousable, opens her eyes, follows simple instructions seems to be very frail and weak. Discontinue propofol gave her a very short trial of pressure support of 14 and CPAP, however the patient was not moving enough tidal volume to continue with the weaning trial I believe the patient needs to be a bit more awake before we could proceed any further. In the meantime I have her off propofol completely. Antibiotics reno she remains on Merrem and Flagyl. Sputum culture has been positive for Klebsiella oxytoca, and that is well covered by Merrem on board. Patient continues to have a relatively low calcium however correcting her corrected calcium to her low albumin is actually in the range of 9-9.5, and there is no reason to continue giving the patient calcium gluconate for a calcium of 6.5 or higher her thyroid profile today showed elevated TSH and low T4 consistent with hypothyroidism, patient is on levothyroxine at 75 g, will increase the dose to 100. Chest x- ray showed left lower lobe atelectasis and possibly a small left pleural effusion. Reevaluated today on 07/08/2022, patient remains in the ICU, patient was extubated yesterday.Underwent small bowel resection 07/03/2022 and another surgery with segmental small bowel resection, formation of ileostomy with mucous fistula and placement of PEG tube 07/05/2022. Patient has been bleeding from the ileostomy site and has received blood transfusions as well as platelets and FFP. Also received IV DDAVP. Extubated 07/07/2022. So far the patient seems to have tolerated the extubation quite well. Patient is on 2 L nasal cannula. Last night she was on BiPAP 10/6 and 35%. Patient remains very frail and extremely weak. Not requiring any pressors today. WBC count is 12.9 hemoglobin is 8, platelets are up to 98,000. Basic metabolic profile is normal however her BUN is 65 creatinine 3.35, being closely followed by nephrology for her acute kidney injury, and planning hemodialysis today with a goal of 1 L ultrafiltration. Urine output is roughly 15-20 mL per hour no hydronephrosis on CT scanned. Hair hemodialysis started on 07/04 and she had a femoral catheter fo r dialysis. Patient remains on Merrem and metronidazole for her abdominal sepsis Reevaluated today on 07/09/2022, patient continues to do fairly well considering her multiple medical problems, she tolerated the extubation over the last 2 days quite well, patient is on 2 L nasal cannula, not in any distress. Remains on Merrem and Flagyl she received a dose of Lasix of 80 mg IV push today nephrology not planning hemodialysis on this patient today, chest x-ray showed small bilateral pleural effusion and congestive changes IVC there is a picture of fluid overload surprisingly the patient is doing better than expected considering the abnormality noted on the chest x-ray. Remains on TPN her IV fluids at KVO her urine output is anywhere between 15 up to 20 mL per hour hopefully will pickup after giving him Lasix dose 80 mg IV push. Continues to have nasogastric tube in place, WBC 13.5 hemoglobin 8.2. Normal renal profile showed a BUN of 65 creatinine 2.53 Reevaluated today on 07/10/2022, patient remains in the ICU, she is on 2 L nasal cannula, remains on TPN at 76 mL per hour, remains on antibiotics in the form of Merrem and Flagyl. Sputum was positive for Klebsiella oxytoca. However her antibiotics are initially given for her abdominal sepsis. Nonetheless that will cover her Klebsiella oxytoca in the sputum. Patient is relatively asymptomatic, continues to have low platelets in the range of 57. Hence we continue to hold heparin subcu. WBC count is 12.5 hemoglobin 8.3 basic metabolic profile is normal BUN is 88 creatinine 3.10. Patient was given 80 mg of Lasix IV push, there was minimal urine output, slight improvement noted overall in her urine output. Patient is scheduled to have hemodialysis again tomorrow. Minimal serosanguineous fluid noted in the ileostomy tube. Her nasogastric tube had about 250 ML overnight. Patient is on TPN and jejunostomy is in place. Continues to have some serous drainage from the midline incision, and continues to have low platelets, however I don't see the need for more platelet transfusion at this point but we'll continue to hold heparin. The patient is seen today 07/11/2022 in follow-up in the intensive care unit. She initially presented back on 07/02/2022 with abdominal pain and nausea and vomiting and found to have a small bowel obstruction. She had undergone a exploratory laparotomy and small bowel resection on 07/04/2022 and was taken back to the OR on 07/05/2022 and she was initiated on hemodialysis on 07/04/2022 as well. She is currently maintaining O2 saturations in the 90s on 2 L/m per nasal cannula. Nasogastric tube remains in place. She is being nourished with TPN at 75 ML's per hour. She has not required any BiPAP support. Her sputum culture was positive for Klebsiella oxytoca. Blood cultures revealed no growth. White count 13.1. Hemoglobin 9.4. Platelets 100,000. Sodium 130. Potassium 4.2. Bicarb 22. BUN 111. Creatinine 3.40. Glucose 133. She remains on DuoNeb inhalations. Antibiotics in the form of meropenem. She is quite weak and debilitated. Objective - Vital Signs Vital signs: Vital Signs Temp 99.5 F 07/11/22 08:00 Pulse 98 07/11/22 11:00 Resp 22 07/11/22 11:00 BP 130/50 07/08/22 17:59 Pulse Ox 97 07/11/22 11:00 FiO2 35 07/07/22 20:00 Intake & Output 07/10/22 07/11/22 07/11/22 18:59 06:59 18:59 Intake Total 1170 195 365 Output Total 665 615 605 Balance 505 -420 -240 Weight 71.6 kg Intake: IV 1170 195 365 0.9 170 120 40 Meropenem 500 mg In 100 100 Sodium Chloride 0.9% 100 ml @ 33.3 mls/hr IVPB Q24HR [facility] Rx#:[id number] Mvi, Adult No.4 with Vit 900 75 225 K 10 ml Trace (Conc-1Ml/ Dose) 1 ml Sodium Acetate 30 meq Potassium Chloride 20 meq Calcium Gluconate 1.5 gm Magnesium Sulfate gm 1 gm In Amino Acid 5%-D15w 1, 000 ml @ 75 mls/hr IV .BY DURATION [facility]ARMIN Rx#: [id number] Intake, IV Titration 0 Amount Fat Emulsion 20% 250 ml @ 0 20.833 mls/hr IV MoFr@ 1200 [facility] Rx#:[id number] Oral 0 Tube Feeding 0 Output: Drainage 100 180 60 Left Abdomen 20 Medial Abdomen 100 180 40 Urine 565 435 270 Other 275 Other: Voiding Method Indwelling Catheter Indwelling Catheter Indwelling Catheter ABP, PAP, CO, CI - Last Documented Arterial Blood Pressure 120/41 - Exam GENERAL EXAM: Alert, extremely weak debilitated 81-year-old female on 2 L nasal cannula, comfortable in no apparent distress. HEAD: Normocephalic. EYES: Normal reaction of pupils, equal size. NOSE: The gastric tube remains secured in place Clear with pink turbinates. THROAT: No erythema or exudates. NECK: No masses, no JVD. CHEST: No chest wall deformity. LUNGS: Equal air entry with no crackles, wheeze, rhonchi or dullness. CVS: S1 and S2 normal with no audible murmur, regular rhythm. ABDOMEN: Ileostomy with serosanguineous drainage. PEG tube in place. MAGNOLIA drains in place. Normal bowel sounds, no guarding or rigidity. SPINE: No scoliosis or deformity SKIN: No rashes CENTRAL NERVOUS SYSTEM: No focal deficits, tone is normal in all 4 extremities. EXTREMITIES: There is no peripheral edema. No clubbing, no cyanosis. Peripheral pulses are intact. - Labs CBC & Chem 7: 07/11/22 05:01 07/11/22 05:01 Labs: Abnormal Lab Results - Last 24 Hours (Table) 07/10/22 07/10/22 07/10/22 Range/Units 12:02 18:07 23:34 WBC (3.8-10.6) k/uL RBC (3.80-5.40) m/uL Hgb (11.4-16.0) gm/dL Hct (34.0-46.0) % RDW (11.5-15.5) % Plt Count (150-450) k/uL Neutrophils # (Manual) (1.3-7.7) k/uL Metamyelocytes # (Man) (0) k/uL Sodium (137-145) mmol/L BUN (7-17) mg/dL Creatinine (0.52-1.04) mg/dL Glucose (74-99) mg/dL POC Glucose (mg/dL) 177 H 156 H 178 H (70-110) mg/dL Calcium (8.4-10.2) mg/dL Magnesium (1.6-2.3) mg/dL Total Protein (6.3-8.2) g/dL Albumin (3.5-5.0) g/dL 07/11/22 07/11/22 07/11/22 Range/Units 05:01 05:01 06:44 WBC 13.1 H (3.8-10.6) k/uL RBC 3.14 L (3.80-5.40) m/uL Hgb 9.4 L (11.4-16.0) gm/dL Hct 29.0 L (34.0-46.0) % RDW 17.6 H (11.5-15.5) % Plt Count 100 L D (150-450) k/uL Neutrophils # (Manual) 11.00 H (1.3-7.7) k/uL Metamyelocytes # (Man) 0.13 H (0) k/uL Sodium 130 L (137-145) mmol/L BUN 111 H* (7-17) mg/dL Creatinine 3.40 H (0.52-1.04) mg/dL Glucose 133 H (74-99) mg/dL POC Glucose (mg/dL) 132 H (70-110) mg/dL Calcium 6.8 L (8.4-10.2) mg/dL Magnesium 2.4 H (1.6-2.3) mg/dL Total Protein 3.0 L (6.3-8.2) g/dL Albumin 1.4 L (3.5-5.0) g/dL Assessment and Plan Assessment: Acute hypoxic respiratory failure secondary to abdominal sepsis and surgical abdomen requiring expiratory laparotomy, segmental small bowel resection for small bowel obstruction postoperative day #8 Status post repeat expiratory laparotomy segmental small bowel resection, ileostomy, feeding tube placement, and MAGNOLIA drains placement postoperative day #6 Septic shock secondary to abdominal sepsis requiring pressors. Thrombocytopenia secondary to sepsis and septic shock. Improving platelets on 07/08 98,000 Acute blood loss anemia with hypovolemia contributing to her hypotension, responded to blood transfusions and fresh was a plasma as well as platelets Acute on chronic kidney injury requiring hemodialysis Chronic kidney disease stage IV Shock liver Irritable bowel syndrome History of hiatal hernia History of GERD Hypothyroidism, thyroid dose has been increased. 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 Number of minutes spent on the visit: 10.
--- NOTE | 2022-07-11 11:39 | P.PN ---
Subjective Progress Note Date: 07/11/22 81-year-old female with history of IBS, hypothyroidism, depression, gout, anxiety initially presenting with acute abdominal pain. In the ED, temperature 97.5F, pulse 85, respiratory rate 19, blood pressure 93/64, saturating at 99% on room air. WBC 10.6, sodium 134, potassium 5.1, bicarb 15, creatinine 2.07, glucose 222, AST 48, ALT 39, troponin 0.012. 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 Patient admitted for abdominal pain, nausea vomiting, possible ileus. Surgery consulted. In the ER, patient had a syncopal episode. She clearly has signs of severe sepsis with lactate trending up, severe leukocytosis with bandemia. Likely source is abdomen. On broad-spectrum antibiotics, also had worsening acute kidney injury. Started on IV sodium bicarbonate and levophed for septic and hypovolemic shock. She was taken emergently for surgery on 07/03. She had exploratory laparoscopy with segmental small bowel resection, was noted to h ave bowel ischemia. Currently she is intubated and sedated in the medical ICU. She had temporary dialysis catheter placed and was started on HD. Had second look operation on 07/05, had necrotic bowel removed and had ileostomy placed. Throughout this hospitalization, she has had 4 PRBCs, 2 FFP and 3 units of platelets transfused. She was extubated on 07/07. Remains in the medical ICU. She has recieved multiple days of Merrem and Flagyl. Blood cultures have remained negative. Sputum culture has grown Klebsiella oxytoca which should have been covered by Merrem. 07/11 Patient was seen and examined. Lab work today shows WBC count of 13.1, Hg 9.4 and Plt count of 100. BMP shows Na 130, BUN 111, Cr 3.40, glucose 133, Ca 6.8. Albumin is 1.4. Magnesium is 2.4. LFTs are within normal limits. Her BP is 119/42, pulse of 92, RR of 22, T of 98.2.F saturating 96% on 2L NC. CXR yesterday showed cardiomegaly with bibasilar opacities and bilateral pleural effusions. On TPN. Completed 7 days of Merrem and Flagyl which stopped today. Pressors have been discontinued since 07/07. NG tube still in place. Patient appears lethargic but nursing reports recent dose of Morphine IV. General: non toxic, no distress, appears at stated age Derm: warm, dry Head: atraumatic, normocephalic, symmetric, NG tube in place Eyes: EOMI, no lid lag, anicteric sclera Cardiovascular: Tachycardic, no murmur Lungs: CTA bilateral, no rhonchi, no rales , no accessory muscle use Abdominal: soft, no bowel sounds, no guarding, no appreciable organomegaly, ostomy + MAGNOLIA in place with serous drainage Ext: no gross muscle atrophy, + edema, no contractures Neuro: no focal neuro deficits Psych: Lethargic but answers questions appropriately Assessment and Plan: Delirium, likely related to metabolic derangements Bowel ischemia, status post small bowel resection and ileostomy 07/03 and 07/05 Pulmonary vascular congestion Acute kidney injury on chronic kidney disease, now requiring intermittent dialysis Hyponatremia Acute normocytic anemia Thrombocytopenia Pseudohypocalcemia Right bundle branch block Chronic conditions: Cirrhosis, Hypothyroidism, IBS, depression, gout, anxiety Resolved: Septic shock, Ischemic hepatitis, AHRF with mechanical ventilation extubated 07/07, HyperK, Lactic acidosis Based on my assessment of this patient, this patient meets a high complexity level of care. Patient has an acute diagnosis of bowel ischemia that poses a threat to life or bodily function. She is status post small bowel resection and ileostomy 07/03 and 07/05. Currently with NG tube. Continue NPO, TPN as directed by Dietitian, Protonix 40 mg IV QD. Zofran 4 mg IV Q8H PRN for N/V. Morphine 4 mg IV Q4H PRN for pain. Completed 7 days of Flagyl IV. Continue Meropenem 500 mg IV QD. Surgery on board. Renal function worsening today, BUN 111, creatinine 3.4, last HD session was on 07/08. She was given a dose of Lasix IV on 07/09 for volume overload and pleural effusions seen on CXR. Will discuss with Nephrology regarding increasing free water flush. Neprology on board. Hemoglobin improved to 9.4 and platelet count improved to 100 today. Status post 4 PRBCs, 2 FFP and 3 units of platelets transfused. Her Ca is within normal limits when corrected for hypoalbuminemia. Her hypoNa is likely hypervolemic. CODE STATUS: NO CODE. DVT prophylaxis: SCD boots. No heparin products due to thrombocytopenia. Anticipated discharge place: Pending clinical course Anticipated discharge time: Pending clinical course I have reviewed the following oracle adf consultant notes: I have reviewed the results of the following tests: WBC count of 13.1, Hg 9.4 and Plt count of 100. BMP shows Na 130, BUN 111, Cr 3.40, glucose 133, Ca 6.8. Albumin is 1.4. Magnesium is 2.4. LFTs are within normal limits. I have ordered the following tests: CBC ordered for tomorrow morning to evalute Hg and Plt count. BMP ordered to evaluate renal function and Na. I have discussed the care of this patient with the following independent historian: I have independently interpreted the following test below: I have discussed the management of this patient with the following physician: This patient has a high risk of morbidity due to the following reasons: She is on TPN - Requires daily monitoring of electrolytes. 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 Objective - Vital Signs Vital signs: Vital Signs Temp 98.2 F 07/11/22 04:00 Pulse 98 07/11/22 08:24 Resp 22 07/11/22 07:00 BP 130/50 07/08/22 17:59 Pulse Ox 95 07/11/22 08:24 FiO2 35 07/07/22 20:00 Intake & Output 07/10/22 07/11/22 07/11/22 18:59 06:59 18:59 Intake Total 1170 195 10 Output Total 665 615 335 Balance 505 -420 -325 Weight 71.6 kg Intake: IV 1170 195 10 0.9 170 120 10 Meropenem 500 mg In 100 Sodium Chloride 0.9% 100 ml @ 33.3 mls/hr IVPB Q24HR [facility] Rx#:[id number] Mvi, Adult No.4 with Vit 900 75 K 10 ml Trace (Conc-1Ml/ Dose) 1 ml Sodium Acetate 30 meq Potassium Chloride 20 meq Calcium Gluconate 1.5 gm Magnesium Sulfate gm 1 gm In Amino Acid 5%-D15w 1, 000 ml @ 75 mls/hr IV .BY DURATION [facility] Rx#: [id number] Output: Drainage 100 180 Medial Abdomen 100 180 Urine 565 435 60 Other 275 Other: Voiding Method Indwelling Catheter Indwelling Catheter ABP, PAP, CO, CI - Last Documented Arterial Blood Pressure 119/43 - Labs CBC & Chem 7: 07/11/22 05:01 07/11/22 05:01 Labs: Abnormal Lab Results - Last 24 Hours (Table) 07/10/22 07/10/22 07/10/22 Range/Units 12:02 18:07 23:34 WBC (3.8-10.6) k/uL RBC (3.80-5.40) m/uL Hgb (11.4-16.0) gm/dL Hct (34.0-46.0) % RDW (11.5-15.5) % Plt Count (150-450) k/uL Neutrophils # (Manual) (1.3-7.7) k/uL Metamyelocytes # (Man) (0) k/uL Sodium (137-145) mmol/L BUN (7-17) mg/dL Creatinine (0.52-1.04) mg/dL Glucose (74-99) mg/dL POC Glucose (mg/dL) 177 H 156 H 178 H (70-110) mg/dL Calcium (8.4-10.2) mg/dL Magnesium (1.6-2.3) mg/dL Total Protein (6.3-8.2) g/dL Albumin (3.5-5.0) g/dL 07/11/22 07/11/22 07/11/22 Range/Units 05:01 05:01 06:44 WBC 13.1 H (3.8-10.6) k/uL RBC 3.14 L (3.80-5.40) m/uL Hgb 9.4 L (11.4-16.0) gm/dL Hct 29.0 L (34.0-46.0) % RDW 17.6 H (11.5-15.5) % Plt Count 100 L D (150-450) k/uL Neutrophils # (Manual) 11.00 H (1.3-7.7) k/uL Metamyelocytes # (Man) 0.13 H (0) k/uL Sodium 130 L (137-145) mmol/L BUN 111 H* (7-17) mg/dL Creatinine 3.40 H (0.52-1.04) mg/dL Glucose 133 H (74-99) mg/dL POC Glucose (mg/dL) 132 H (70-110) mg/dL Calcium 6.8 L (8.4-10.2) mg/dL Magnesium 2.4 H (1.6-2.3) mg/dL Total Protein 3.0 L (6.3-8.2) g/dL Albumin 1.4 L (3.5-5.0) g/dL
[2022-07-11 11:44] LABS: Glucose,Whole Blood 139 mg/dL (70-110)
--- NOTE | 2022-07-11 11:49 | P.PN ---
Subjective Patient is seen in follow-up for acute kidney injury on chronic kidney disease. Urine output now 50-75 mL an hour. Underwent small bowel resection 07/03/2022 and another surgery with segmental small bowel resection, formation of ileostomy with mucous fistula and placement of PEG tube 07/05/2022. Patient has been bleeding from the ileostomy site and has received blood transfusions as well as platelets and FFP. Also received IV DDAVP. Extubated 07/07/2022. Last dialysis was Serum creatinine at 3.4 today which is up from 3.1 yesterday. BUN is much higher at 111. No steroids on board. Patient has had GI bleed. Currently no b leeding noted. Objective - Vital Signs Vital signs: Vital Signs Temp 99.5 F 07/11/22 08:00 Pulse 98 07/11/22 11:00 Resp 22 07/11/22 11:00 BP 130/50 07/08/22 17:59 Pulse Ox 97 07/11/22 11:00 FiO2 35 07/07/22 20:00 Intake & Output 07/10/22 07/11/22 07/11/22 18:59 06:59 18:59 Intake Total 1170 195 375 Output Total 665 615 630 Balance 505 -420 -255 Weight 71.6 kg Intake: IV 1170 195 375 0.9 170 120 50 Meropenem 500 mg In 100 100 Sodium Chloride 0.9% 100 ml @ 33.3 mls/hr IVPB Q24HR [facility] Rx#:[id number] Mvi, Adult No.4 with Vit 900 75 225 K 10 ml Trace (Conc-1Ml/ Dose) 1 ml Sodium Acetate 30 meq Potassium Chloride 20 meq Calcium Gluconate 1.5 gm Magnesium Sulfate gm 1 gm In Amino Acid 5%-D15w 1, 000 ml @ 75 mls/hr IV .BY DURATION [facility] Rx#: [id number] Intake, IV Titration 0 Amount Fat Emulsion 20% 250 ml @ 0 20.833 mls/hr IV MoFr@ 1200 [facility] Rx#:[id number] Oral 0 Tube Feeding 0 Output: Drainage 100 180 60 Left Abdomen 20 Medial Abdomen 100 180 40 Urine 565 435 295 Other 275 Other: Voiding Method Indwelling Catheter Indwelling Catheter Indwelling Catheter ABP, PAP, CO, CI - Last Documented Arterial Blood Pressure 120/41 - Exam Patient is sleeping but arousable. Not in acute distress Examination of the heart S1 and S2 Examination of the lungs decreased breath sounds at the bases Abdomen is soft Examination of lower extremities shows edema 1+ [employer] exam grossly intact - Labs CBC & Chem 7: 07/11/22 05:01 07/11/22 05:01 Labs: Abnormal Lab Results - Last 24 Hours (Table) 07/10/22 07/10/22 07/10/22 Range/Units 12:02 18:07 23:34 WBC (3.8-10.6) k/uL RBC (3.80-5.40) m/uL Hgb (11.4-16.0) gm/dL Hct (34.0-46.0) % RDW (11.5-15.5) % Plt Count (150-450) k/uL Neutrophils # (Manual) (1.3-7.7) k/uL Metamyelocytes # (Man) (0) k/uL Sodium (137-145) mmol/L BUN (7-17) mg/dL Creatinine (0.52-1.04) mg/dL Glucose (74-99) mg/dL POC Glucose (mg/dL) 177 H 156 H 178 H (70-110) mg/dL Calcium (8.4-10.2) mg/dL Magnesium (1.6-2.3) mg/dL Total Protein (6.3-8.2) g/dL Albumin (3.5-5.0) g/dL 07/11/22 07/11/22 07/11/22 Range/Units 05:01 05:01 06:44 WBC 13.1 H (3.8-10.6) k/uL RBC 3.14 L (3.80-5.40) m/uL Hgb 9.4 L (11.4-16.0) gm/dL Hct 29.0 L (34.0-46.0) % RDW 17.6 H (11.5-15.5) % Plt Count 100 L D (150-450) k/uL Neutrophils # (Manual) 11.00 H (1.3-7.7) k/uL Metamyelocytes # (Man) 0.13 H (0) k/uL Sodium 130 L (137-145) mmol/L BUN 111 H* (7-17) mg/dL Creatinine 3.40 H (0.52-1.04) mg/dL Glucose 133 H (74-99) mg/dL POC Glucose (mg/dL) 132 H (70-110) mg/dL Calcium 6.8 L (8.4-10.2) mg/dL Magnesium 2.4 H (1.6-2.3) mg/dL Total Protein 3.0 L (6.3-8.2) g/dL Albumin 1.4 L (3.5-5.0) g/dL Assessment and Plan Assessment: 1. Acute kidney injury secondary to ATN secondary to hypotension/septic shock. Creatinine peaked at 3.93 this admission. No hydronephrosis noted on CAT scan. Started on hemodialysis 07/04/2022. Has a femoral catheter. Last dialysis 07/08/2022. Status post 80 mg IV Lasix given 07/09/2022. Urine output now 50- 75 mL an hour. Serum creatinine increased from 3.1-3.4 and B UN is also higher at 111. I we'll continue to hold hemodialysis today and we will plan for her treatment tomorrow if the labs are worse. 2. Chronic kidney disease stage IV with baseline creatinine near 2 secondary to nephrosclerosis. 3. Metabolic acidosis secondary to acute kidney injury and lactic acidosis s/p bicarbonate drip. Improved. 4. Hyperkalemia secondary to acute kidney injury, acidosis. Improved with medical management and HD. 5. Small bowel obstruction with ischemic bowel status post exploratory laparotomy with segmental small bowel resection 07/03/2022. Underwent another exploratory laparotomy with segmental small bowel resection, ileostomy formation and PEG tube placement 07/05/2022. 6. Hypocalcemia secondary to acute kidney injury. Replaced. Corrected calcium normal. Ionized calcium normal. 7. Acute blood loss anemia status post blood transfusions, FFP and platelets. Also received IV DDAVP. Hemoglobin stable at 9.4. Plan: Hold hemodialysis today Repeat labs in a.m. Most likely patient will need hemodialysis tomorrow unless her labs are better
[2022-07-11 12:24] VITALS: BMI 30.8
[2022-07-11] MEDS: HEPARIN SODIUM,PORCINE/PF 5,000 UNIT/0.5 ML SYRINGE SQ SCH (15:30)
[2022-07-11] MEDS: PIPERACILLIN-TAZOBACTAM 3.375 GM in SODIUM CHLORIDE 0.9% 100 ML IVPB SCH (15:31)
[2022-07-11 18:28] LABS: Glucose,Whole Blood 168 mg/dL (70-110)
[2022-07-11] MEDS: ALPRAZolam 0.5 MG TAB PO SCH (21:23)
[2022-07-11] MEDS: [UNRECOGNIZED DRUG - OTHER] IV SCH ×6 (23:11)
[2022-07-11 23:49] LABS: Glucose,Whole Blood 141 mg/dL (70-110)
[2022-07-12] MEDS: INSULIN ASPART (NovoLOG) 100 UNIT/ML VIAL SQ SCH ×3 (00:41→13:36)
[2022-07-12] MEDS: HYDROcodone/APAP 5-325MG 1 EACH TAB PO PRN ×2 (02:24→06:37)
[2022-07-12 04:41] LABS: Magnesium 2.4 mg/dL (1.6-2.3); Phosphorus 3.6 mg/dL (2.5-4.5); Potassium 4.5 mmol/L (3.5-5.1)
[2022-07-12 04:53] LABS: Anisocytosis Slight; HCT 26.4 % (34.0-46.0); HGB 8.5 gm/dL (11.4-16.0); Hypochromasia Slight; MCH 30.1 pg (25.0-35.0); MCHC 32.2 g/dL (31.0-37.0); MCV 93.3 fL (80.0-100.0); Mean Platelet Volume 10.4; Platelet Count 138 k/uL (150-450); RBC 2.83 m/uL (3.80-5.40); RDW 17.7 % (11.5-15.5); WBC 17.3 k/uL (3.8-10.6)
[2022-07-12 05:37] LABS: Glucose,Whole Blood 170 mg/dL (70-110)
[2022-07-12] MEDS: LEVOTHYROXINE 100 MCG TAB PO SCH (05:40)
[2022-07-12] MEDS ORDERED: SODIUM CHLORIDE 0.9% 1,000 ML IV ONE (08:00)
[2022-07-12] MEDS ORDERED: HYDROmorphone 0.5 MG/0.5 ML SYRINGE IVP PRN (08:13)
[2022-07-12] MEDS: IPRATROPIUM-ALBUTEROL 3 ML NEB INHALATION SCH ×3 (08:33→12:28)
[2022-07-12] MEDS: MEROPENEM 500 MG in SODIUM CHLORIDE 0.9% 100 ML IVPB SCH (09:12)
[2022-07-12] MEDS: PANTOPRAZOLE 40 MG/10 ML VIAL IVP SCH (09:12)
[2022-07-12] MEDS: CITALOPRAM HYDROBROMIDE 20 MG TAB PO SCH (09:13)
--- NOTE | 2022-07-12 10:28 | P.PN ---
Subjective Progress Note Date: 07/12/22 I'm seeing this patient in new consultation today 07/04/2022 for ICU management post exploratory laparotomy and segmental small bowel resection for a small bowel obstruction. Patient is a 81-year-old white female with past medical history significant for irritable bowel syndrome, peptic ulcers with previous anemia and PRBC transfusions, GERD, hiatal hernia, chronic kidney disease stage IV, hypothyroidism, hypertension. Patient presented to the emergency room on July 02 with a chief complaint of abdominal pain, nausea, and vomiting for approximately one day. Patient reportedly had a bowel movement the day prior. A follow-up CT of the abdomen and pelvis without contrast showed fluid-filled prominent small bowel loops within the pelvis that could correlate for ileus. A low-grade small bowel obstruction was felt to be less likely at that time. There was also some ascites, and a small lobular liver. NG tube was originally inserted for gastric decompression, and the patient was observed overnight. The patient's condition progressively worsened, and was taken to surgery yesterday. Patient underwent an exploratory laparotomy with segmental small bowel resection. The abdomen was left open, and a wound VAC was applied. Postoperatively, the patient was left on the mechanical ventilator, and is currently in the intensive care unit. She is synchronous with the ventilator. Initial ventilator settings were assist control, respiratory rate 14, tidal volume 350, FiO2 100%, and a PEEP of 5. Initial chest x-ray showed the endotracheal tube 2.4 cm from the amanda, NG tube was seen within the stomach, and there was some pulmonary vascular congestion without overt heart failure. Initial ABG on these settings showed a pO2 of 262, pCO2 of 50, pH of 7.12. Respiratory rate was increased to 26, tidal volume was increased to 400, and FiO2 reduced to 40%. A follow-up ABG showed a pO2 of 134, pCO2 of 34, and pH is 7.24. Propofol infusing at 15 mics per kilogram per minute for sedation. Patient was given 3 A of sodium bicarb and started on a sodium bicarb infusion 3 amps in D5W at 125 ML's per hour. There was an acute drop in hemoglobin from 10.8 g/dL preoperatively to 5.5 g/dL postoperatively. Patient is currently receiving 2 units PRBC transfusion. Patient was also fluid resuscitated with a total of 4 L normal saline. Patient's hypotension was refractory to fluid resuscitation, and was subsequently started on a norepinephrine infusion which is currently infusing at 0.12 mics per kilogram per minute through a right IJ double-lumen central line catheter. NG tube has a small amount of brown-green bilious drainage. Most recent CBC shows a WBC count of 4.8, hemoglobin 5.5, hematocrit 18.4, platelets 113,000. Most recent BMP postoperatively shows a sodium of 137, potassium 6.7, chloride 115, serum CO2 10, BUN 76, creatinine 4.14, glucose 96. Patient's hyperkalemia was treated with 8 units of insulin, an amp of D50W, 2 g of calcium gluconate, as well as the as the above-mentioned sodium bicarbonate. Patient has a component of acute on chronic kidney injury, and is currently anuric. Patient's lactic was also 6.6, and this will be rechecked. LFTs are mildly elevated. Patient was started on empiric Zosyn. The plan per surgical services, is to take the patient back to the operating room on Monday, once more hemodynamically stable. Shunt was reevaluated today on 07/05/2022, remains in the ICU, intubated and mechanically ventilated. Patient is on assist control rate of 26 tidal volume 400 FiO2 40% PEEP of 5 ABG showed a pO2 of 99 pCO2 39 pH of 7.43, hence no vent changes were made. Patient is on norepinephrine at 0.18 mcg/kg/m propofol at 10 mcg/kg/m she is also on bicarb drip which I have discontinued today, patient received dialysis last night. She is scheduled to have reexploration today and possibly closure of her abdominal incision sometime later today. Hence no plans to hold sedation or assess weaning at this point since the patient is going back to surgery. Chest x-ray showed mostly small left pleural effusion and atelectasis minimal increased interstitial densities. Labs were reviewed her WBC count is 9 hemoglobin 11.2. Platelets are 78,000 basic metabolic profile is normal however her BUN is 58 creatinine 3.03. Her enzymes remain elevated with AST of 419 ALT of 393. Antibiotics reno, patient is on Merrem and she is also o n metronidazole. Patient was reevaluated today on 07/06/2022, remains intubated and mechanically ventilated. On 07/05/yesterday patient underwent another exploratory laparotomy segmental small bowel resection, formation of ileostomy with mucous fistula placement of feeding tube and MAGNOLIA drain. Postoperatively patient was sent back to the ICU. She is now on assist control rate of 26 tidal volume 400 FiO2 40% and PEEP of 5 ABG showed a pO2 of 117 pCO2 44 pH of 7.38. Patient is still requiring propofol at 10 mcg/kg/m and norepinephrine at 0.06 mcg/kg/m IV fluid is 0.9 normal saline at 50 mL an hour. Patient is undergoing intermittent hemodialysis. She had some intermittent bleeding at the surgical site, and she received so far a total of 4 units of packed RBCs, 2 units of fresh was a plasma and 1 unit of platelets. Chest x-ray showed small left pleural effusion and atelectasis. WBC count today is 8.7 hemoglobin is 9.1, electrolytes are normal renal profile showed a BUN of 59 and creatinine of 3.2, calcium is up to 6.7 liver enzymes are improving compared to levels in the last few days definitely better and improved Reevaluated today on 07/07/2022, patient remains in the ICU, intubated and mechanically ventilated. She is on assist control rate of 26 tidal volume 400 FiO2 40% and PEEP of 5 ABG showed a pO2 of 117 pCO2 39 pH of 7.46 as I cut down her FiO2 to 35%. Patient is on propofol at 5 mcg/kg/m TPN at 30 mL per hour, she is also on norepinephrine at 0.02 mcg/m and IV fluid at 20 mL per hour. Patient had her last hemodialysis on 07/06 and removed 800 mL of fluid. Patient continues to have very low platelets in the 43,000 range, and I'm recommending 2 units of platelets and the patient is having bleeding into the ostomy bag patient has received a total of 4 units of packed RBCs units of fresh frozen plasma and 1 unit of platelets since admission. Clinically the patient extremely frail and weak, nonetheless she is arousable, opens her eyes, follows simple instructions seems to be very frail and weak. Discontinue propofol gave her a very short trial of pressure support of 14 and CPAP, however the patient was not moving enough tidal volume to continue with the weaning trial I believe the patient needs to be a bit more awake before we could proceed any further. In the meantime I have her off propofol completely. Antibiotics reno she remains on Merrem and Flagyl. Sputum culture has been positive for Klebsiella oxytoca, and that is well covered by Merrem on board. Patient continues to have a relatively low calcium however correcting her corrected calcium to her low albumin is actually in the range of 9-9.5, and there is no reason to continue giving the patient calcium gluconate for a calcium of 6.5 or higher her thyroid profile today showed elevated TSH and low T4 consistent with hypothyroidism, patient is on levothyroxine at 75 g, will increase the dose to 100. Chest x- ray showed left lower lobe atelectasis and possibly a small left pleural effusion. Reevaluated today on 07/08/2022, patient remains in the ICU, patient was extubated yesterday.Underwent small bowel resection 07/03/2022 and another surgery with segmental small bowel resection, formation of ileostomy with mucous fistula and placement of PEG tube 07/05/2022. Patient has been bleeding from the ileostomy site and has received blood transfusions as well as platelets and FFP. Also received IV DDAVP. Extubated 07/07/2022. So far the patient seems to have tolerated the extubation quite well. Patient is on 2 L nasal cannula. Last night she was on BiPAP 10/6 and 35%. Patient remains very frail and extremely weak. Not requiring any pressors today. WBC count is 12.9 hemoglobin is 8, platelets are up to 98,000. Basic metabolic profile is normal however her BUN is 65 creatinine 3.35, being closely followed by nephrology for her acute kidney injury, and planning hemodialysis today with a goal of 1 L ultrafiltration. Urine output is roughly 15-20 mL per hour no hydronephrosis on CT scanned. Hair hemodialysis started on 07/04 and she had a femoral catheter fo r dialysis. Patient remains on Merrem and metronidazole for her abdominal sepsis Reevaluated today on 07/09/2022, patient continues to do fairly well considering her multiple medical problems, she tolerated the extubation over the last 2 days quite well, patient is on 2 L nasal cannula, not in any distress. Remains on Merrem and Flagyl she received a dose of Lasix of 80 mg IV push today nephrology not planning hemodialysis on this patient today, chest x-ray showed small bilateral pleural effusion and congestive changes IVC there is a picture of fluid overload surprisingly the patient is doing better than expected considering the abnormality noted on the chest x-ray. Remains on TPN her IV fluids at KVO her urine output is anywhere between 15 up to 20 mL per hour hopefully will pickup after giving him Lasix dose 80 mg IV push. Continues to have nasogastric tube in place, WBC 13.5 hemoglobin 8.2. Normal renal profile showed a BUN of 65 creatinine 2.53 Reevaluated today on 07/10/2022, patient remains in the ICU, she is on 2 L nasal cannula, remains on TPN at 76 mL per hour, remains on antibiotics in the form of Merrem and Flagyl. Sputum was positive for Klebsiella oxytoca. However her antibiotics are initially given for her abdominal sepsis. Nonetheless that will cover her Klebsiella oxytoca in the sputum. Patient is relatively asymptomatic, continues to have low platelets in the range of 57. Hence we continue to hold heparin subcu. WBC count is 12.5 hemoglobin 8.3 basic metabolic profile is normal BUN is 88 creatinine 3.10. Patient was given 80 mg of Lasix IV push, there was minimal urine output, slight improvement noted overall in her urine output. Patient is scheduled to have hemodialysis again tomorrow. Minimal serosanguineous fluid noted in the ileostomy tube. Her nasogastric tube had about 250 ML overnight. Patient is on TPN and jejunostomy is in place. Continues to have some serous drainage from the midline incision, and continues to have low platelets, however I don't see the need for more platelet transfusion at this point but we'll continue to hold heparin. The patient is seen today 07/11/2022 in follow-up in the intensive care unit. She initially presented back on 07/02/2022 with abdominal pain and nausea and vomiting and found to have a small bowel obstruction. She had undergone a exploratory laparotomy and small bowel resection on 07/04/2022 and was taken back to the OR on 07/05/2022 and she was initiated on hemodialysis on 07/04/2022 as well. She is currently maintaining O2 saturations in the 90s on 2 L/m per nasal cannula. Nasogastric tube remains in place. She is being nourished with TPN at 75 ML's per hour. She has not required any BiPAP support. Her sputum culture was positive for Klebsiella oxytoca. Blood cultures revealed no growth. White count 13.1. Hemoglobin 9.4. Platelets 100,000. Sodium 130. Potassium 4.2. Bicarb 22. BUN 111. Creatinine 3.40. Glucose 133. She remains on DuoNeb inhalations. Antibiotics in the form of meropenem. She is quite weak and debilitated. The patient is seen today 07/12/2022 in follow-up in the intensive care unit. She is currently resting fairly comfortably in bed. She denies any worsening shortness of breath, cough or congestion. She's maintaining O2 saturations in the 90s on 2 L/m per nasal cannula. Nasogastric tube remains in place. She is being nourished with TPN at 75 ML's per hour. Her main complaint is that of back pain. She is quite frail and weak. Sputum culture positive for Klebsiella oxytoca. White count 17.3. Hemodynamically 0.5. Platelets 138. Sodium 128. Potassium 4.5. Bicarb 21. BUN 135. Creatinine 3.57. Her blood pressures have been on the low side she received 500 mL fluid bolus. Nephrology is following. Plans for possible hemodialysis tomorrow. She is making urine. Currently in a -500 ML balance. Remains on antibiotics in the form of meropenem Objective - Vital Signs Vital signs: Vital Signs Temp 97.7 F 07/11/22 20:00 Pulse 86 07/12/22 08:59 Resp 19 07/12/22 07:00 BP 105/51 07/12/22 07:00 Pulse Ox 98 07/12/22 08:47 FiO2 35 07/07/22 20:00 Intake & Output 07/11/22 07/12/22 07/12/22 18:59 06:59 18:59 Intake Total 1138.2 560 85 Output Total 1680 605 45 Balance -541.8 -45 40 Weight 71.6 kg 71 kg Intake: IV 530 560 85 0.9 130 110 10 Meropenem 500 mg In 100 Sodium Chloride 0.9% 100 ml @ 33.3 mls/hr IVPB Q24HR [facility] Rx#:[id number] Mvi, Adult No.4 with Vit 300 K 10 ml Trace (Conc-1Ml/ Dose) 1 ml Sodium Acetate 30 meq Potassium Chloride 20 meq Calcium Gluconate 1.5 gm Magnesium Sulfate gm 1 gm In Amino Acid 5%-D15w 1, 000 ml @ 75 mls/hr IV .BY DURATION [facility] Rx#: [id number] Mvi, Adult No.4 with Vit 450 75 K 10 ml Trace (Conc-1Ml/ Dose) 1 ml Sodium Acetate 50 meq Potassium Chloride 20 meq Calcium Gluconate 1.5 gm Magnesium Sulfate gm 0.5 gm In Amino Acid 5%-D15w 1,000 ml @ 75 mls/hr IV . BY DURATION [facility] Rx#: [id number] Intake, IV Titration 608.2 Amount Fat Emulsion 20% 250 ml @ 83.2 20.833 mls/hr IV MoFr@ 1200 [facility] Rx#:[id number] Mvi, Adult No.4 with Vit 525 K 10 ml Trace (Conc-1Ml/ Dose) 1 ml Sodium Acetate 80 meq Potassium Chloride 20 meq Calcium Gluconate 1.5 gm In Amino Acid 5%-D15w 1,000 ml @ 75 mls/hr IV .BY DURATION [facility] Rx#:[id number] Oral 0 Tube Feeding 0 Output: Gastric Drainage 500 200 Drainage 135 40 Left Abdomen 60 40 Medial Abdomen 75 Urine 570 365 45 Stool 200 Other 275 Other: Voiding Method Indwelling Catheter Indwelling Catheter ABP, PAP, CO, CI - Last Documented Arterial Blood Pressure 94/35 - Exam GENERAL EXAM: Alert, weak, debilitated 81-year-old female, on 2 L nasal cannula, fairly comfortable in no apparent distress. HEAD: Normocephalic. EYES: Normal reaction of pupils, equal size. NOSE: The gastric tube remains secured in place Clear with pink turbinates. THROAT: No erythema or exudates. NECK: No masses, no JVD. CHEST: No chest wall deformity. LUNGS: Equal air entry with no crackles, wheeze, rhonchi or dullness. CVS: S1 and S2 normal with no audible murmur, regular rhythm. ABDOMEN: Ileostomy with serosanguineous drainage. PEG tube in place. MAGNOLIA drains in place. Normal bowel sounds, no guarding or rigidity. SPINE: No scoliosis or deformity SKIN: No rashes CENTRAL NERVOUS SYSTEM: No focal deficits, tone is normal in all 4 extremities. EXTREMITIES: There is no peripheral edema. No clubbing, no cyanosis. Peripheral pulses are intact. - Labs CBC & Chem 7: 07/12/22 04:11 07/12/22 04:11 Labs: Abnormal Lab Results - Last 24 Hours (Table) 07/11/22 07/11/22 07/11/22 Range/Units 11:42 18:28 23:46 WBC (3.8-10.6) k/uL RBC (3.80-5.40) m/uL Hgb (11.4-16.0) gm/dL Hct (34.0-46.0) % RDW (11.5-15.5) % Plt Count (150-450) k/uL Sodium (137-145) mmol/L Chloride (98-107) mmol/L Carbon Dioxide (22-30) mmol/L BUN (7-17) mg/dL Creatinine (0.52-1.04) mg/dL Glucose (74-99) mg/dL POC Glucose (mg/dL) 139 H 168 H 141 H (70-110) mg/dL Calcium (8.4-10.2) mg/dL Magnesium (1.6-2.3) mg/dL 07/12/22 07/12/22 07/12/22 Range/Units 04:11 04:11 05:36 WBC 17.3 H (3.8-10.6) k/uL RBC 2.83 L (3.80-5.40) m/uL Hgb 8.5 L (11.4-16.0) gm/dL Hct 26.4 L (34.0-46.0) % RDW 17.7 H (11.5-15.5) % Plt Count 138 L (150-450) k/uL Sodium 128 L (137-145) mmol/L Chloride 97 L (98-107) mmol/L Carbon Dioxide 21 L (22-30) mmol/L BUN 135 H* (7-17) mg/dL Creatinine 3.57 H (0.52-1.04) mg/dL Glucose 146 H (74-99) mg/dL POC Glucose (mg/dL) 170 H (70-110) mg/dL Calcium 7.0 L (8.4-10.2) mg/dL Magnesium 2.4 H (1.6-2.3) mg/dL Assessment and Plan Assessment: Acute hypoxic respiratory failure secondary to abdominal sepsis and surgical abdomen requiring expiratory laparotomy, segmental small bowel resection for small bowel obstruction postoperative day #9 Status post repeat expiratory laparotomy segmental small bowel resection, il eostomy, feeding tube placement, and MAGNOLIA drains placement postoperative day #7 Septic shock secondary to abdominal sepsis requiring pressors. Thrombocytopenia secondary to sepsis and septic shock. Improving platelets on 07/12/2022 up to 138,000 Acute blood loss anemia with hypovolemia contributing to her hypotension, responded to blood transfusions and fresh was a plasma as well as platelets Acute on chronic kidney injury requiring hemodialysis Chronic kidney disease stage IV Shock liver Hyponatremia current sodium 128 Irritable bowel syndrome History of hiatal hernia History of GERD Hypothyroidism, thyroid dose has been increased. 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 Number of minutes spent on the visit: 10.
[2022-07-12] MEDS ORDERED: SODIUM CHLORIDE 0.9% 1,000 ML IV SCH ×2 (10:30)
--- NOTE | 2022-07-12 11:28 | P.PN ---
Subjective Patient is seen in follow-up for acute kidney injury on chronic kidney disease. Urine output now 30-50 mL an hour. Underwent small bowel resection 07/03/2022 and another surgery with segmental small bowel resection, formation of ileostomy with mucous fistula and placement of PEG tube 07/05/2022. Patient had bleeding from the ileostomy site and has received blood transfusions as well as platelets and FFP. Also received IV DDAVP. Extubated 07/07/2022. Last dialysis was Serum creatinine at 3.5 today and BUN is much higher at 135. No steroids on board. Patient has had GI bleed. Currently no bleeding noted. Blood pressure has been low and patient received a fluid bolus this morning. Patient is scheduled for hemodialysis today however they may be plans for further change in CODE STATUS and possible hospice care/comfort care measures. Objective - Vital Signs Vital signs: Vital Signs Temp 98.6 F 07/12/22 08:00 Pulse 85 07/12/22 10:00 Resp 16 07/12/22 10:00 BP 103/53 07/12/22 10:00 Pulse Ox 100 07/12/22 10:00 FiO2 35 07/07/22 20:00 Intake & Output 07/11/22 07/12/22 07/12/22 18:59 06:59 18:59 Intake Total 1138.2 560 1340 Output Total 1680 605 430 Balance -541.8 -45 910 Weight 71.6 kg 71 kg Intake: IV 530 560 115 0.9 130 110 40 Meropenem 500 mg In 100 Sodium Chloride 0.9% 100 ml @ 33.3 mls/hr IVPB Q24HR [facility] Rx#:[id number] Mvi, Adult No.4 with Vit 300 K 10 ml Trace (Conc-1Ml/ Dose) 1 ml Sodium Acetate 30 meq Potassium Chloride 20 meq Calcium Gluconate 1.5 gm Magnesium Sulfate gm 1 gm In Amino Acid 5%-D15w 1, 000 ml @ 75 mls/hr IV .BY DURATION [facility] Rx#: [id number] Mvi, Adult No.4 with Vit 450 75 K 10 ml Trace (Conc-1Ml/ Dose) 1 ml Sodium Acetate 50 meq Potassium Chloride 20 meq Calcium Gluconate 1.5 gm Magnesium Sulfate gm 0.5 gm In Amino Acid 5%-D15w 1,000 ml @ 75 mls/hr IV . BY DURATION [facility] Rx#: [id number] Intake, IV Titration 608.2 1225 Amount Fat Emulsion 20% 250 ml @ 83.2 20.833 mls/hr IV MoFr@ 1200 [facility] Rx#:[id number] Mvi, Adult No.4 with Vit 225 K 10 ml Trace (Conc-1Ml/ Dose) 1 ml Sodium Acetate 100 meq Potassium Chloride 20 meq Calcium Gluconate 1.5 gm In Amino Acid 5%-D15w 1,000 ml @ 75 mls/hr IV .BY DURATION [facility] Rx#:[id number] Mvi, Adult No.4 with Vit 525 K 10 ml Trace (Conc-1Ml/ Dose) 1 ml Sodium Acetate 80 meq Potassium Chloride 20 meq Calcium Gluconate 1.5 gm In Amino Acid 5%-D15w 1,000 ml @ 75 mls/hr IV .BY DURATION [facility] Rx#:[id number] Sodium Chloride 0.9% 1, 1000 000 ml @ 999 mls/hr IV . Q1H1M [facility] Rx#:[id number] Oral 0 Tube Feeding 0 Output: Gastric Drainage 500 200 300 Drainage 135 40 0 Left Abdomen 60 40 0 Medial Abdomen 75 Urine 570 365 130 Stool 200 Other 275 Other: Voiding Method Indwelling Catheter Indwelling Catheter Indwelling Catheter ABP, PAP, CO, CI - Last Documented Arterial Blood Pressure 95/39 - Exam Patient is sleeping . Does not communicate much today. Not in acute distress Examination of the heart S1 and S2 Examination of the lungs decreased breath sounds at the bases Abdomen is soft Examination of lower extremities shows edema 1+ - Labs CBC & Chem 7: 07/12/22 04:11 07/12/22 04:11 Labs: Abnormal Lab Results - Last 24 Hours (Table) 07/11/22 07/11/22 07/11/22 Range/Units 11:42 18:28 23:46 WBC (3.8-10.6) k/uL RBC (3.80-5.40) m/uL Hgb (11.4-16.0) gm/dL Hct (34.0-46.0) % RDW (11.5-15.5) % Plt Count (150-450) k/uL Sodium (137-145) mmol/L Chloride (98-107) mmol/L Carbon Dioxide (22-30) mmol/L BUN (7-17) mg/dL Creatinine (0.52-1.04) mg/dL Glucose (74-99) mg/dL POC Glucose (mg/dL) 139 H 168 H 141 H (70-110) mg/dL Calcium (8.4-10.2) mg/dL Magnesium (1.6-2.3) mg/dL 07/12/22 07/12/22 07/12/22 Range/Units 04:11 04:11 05:36 WBC 17.3 H (3.8-10.6) k/uL RBC 2.83 L (3.80-5.40) m/uL Hgb 8.5 L (11.4-16.0) gm/dL Hct 26.4 L (34.0-46.0) % RDW 17.7 H (11.5-15.5) % Plt Count 138 L (150-450) k/uL Sodium 128 L (137-145) mmol/L Chloride 97 L (98-107) mmol/L Carbon Dioxide 21 L (22-30) mmol/L BUN 135 H* (7-17) mg/dL Creatinine 3.57 H (0.52-1.04) mg/dL Glucose 146 H (74-99) mg/dL POC Glucose (mg/dL) 170 H (70-110) mg/dL Calcium 7.0 L (8.4-10.2) mg/dL Magnesium 2.4 H (1.6-2.3) mg/dL Assessment and Plan Assessment: 1. Acute kidney injury secondary to ATN secondary to hypotension/septic shock. Creatinine peaked at 3.93 this admission. No hydronephrosis noted on CAT scan. Started on hemodialysis 07/04/2022. Has a femoral catheter. Last dialysis 07/08/2022. Urine output at 30-50 mL an hour. Serum creatinine increased to 3.5 and B UN as 135 today. Patient is scheduled for hemodialysis today however her blood pressure remains difficult currently low. 2. Chronic kidney disease stage IV with baseline creatinine near 2 secondary to nephrosclerosis. 3. Metabolic acidosis secondary to acute kidney injury and lactic acidosis s/p bicarbonate drip. Improved. 4. Hyperkalemia secondary to acute kidney injury, acidosis. Improved with medical management and HD. 5. Small bowel obstruction with ischemic bowel status post exploratory laparotomy with segmental small bowel resection 07/03/2022. Underwent another exploratory laparotomy with segmental small bowel resection, ileostomy formation and PEG tube placement 07/05/2022. 6. Hypocalcemia secondary to acute kidney injury. Replaced. Corrected calcium normal. Ionized calcium normal. 7. Acute blood loss anemia status post blood transfusions, FFP and platelets. Also received IV DDAVP. Hemoglobin at 8.5 today Plan: Hemodialysis today however patient is significantly hypotensive. Agree with plans to further discuss CODE STATUS as patient may not be able to tolerate renal replacement therapy.
[2022-07-12 11:29] LABS: Glucose,Whole Blood 143 mg/dL (70-110)
[2022-07-12 11:44] VITALS: TEMP 97.6
--- NOTE | 2022-07-12 12:13 | P.PN ---
Subjective Progress Note Date: 07/12/22 Hospital Course: 81-year-old female with history of IBS, hypothyroidism, depression, gout, anxiety presenting with acute abdominal pain. In the ED, temperature 97.5, pulse 85, respiratory rate 19, blood pressure 93/64, saturating at 99% on room air. WBC 10.6, sodium 134, potassium 5.1, bicarb 15, creatinine 2.07, glucose 222, AST 48, ALT 39, troponin 0.012. 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 EKG showed normal sinus rhythm, right bundle branch block. Chest x- ray showed no acute process. Patient admitted for abdominal pain, nausea vomiting, possible ileus. Surgery consulted. In the ER, patient had a syncopal episode. A,, patient clearly has signs of severe sepsis, lactate is trending up, severe leukocytosis with bandemia. Likely source is abdomen. On broad- spectrum antibiotics, also has worsening acute kidney injury. For acidosis, started on IV sodium bicarbonate. Patient continued to worsen, and septic and hypovolemic shock. She was taken emergently for surgery. She had exploratory laparoscopy with segmental small bowel resection, was noted to have bowel ischemia. Currently she is intubated and sedated in the medical ICU. She had temp dialysis catheter placed and was started on iHD. Had second look operation on 07/05, had necrotic bowel removed and had ileostomy placement. Pt continued to have blood loss and thrombocytopenia issues. Extubated, on nasal cannula. NG tube still in place. Remains in the medical ICU. Patient started to have acute encephalopathy. Likely in the setting of uremia. Unable to tolerate dialysis due to low blood pressure. Family decided for comfort care measures only. Subjective: Patient seen and examined at bedside. No acute events overnight. Continues to have NG tube and Person catheter in place. Patient has been very tired and encephalopathic. Also becoming hypotensive Pertinent positives and negatives as discussed above, a complete review of systems was performed and all other systems are negative. Vitals Signs Reviewed. General: Not in acute distress, tired-appearing Derm: warm, dry Head: atraumatic, normocephalic, symmetric Eyes: pupils equal round reactive to light ENT: Nose and ears atraumatic Neck: No thyromegaly, supple Mouth: no lip lesion, mucus membranes moist Cardiovascular: S1S2 reg, tachycardic, no murmur, peripheral edema Lungs: Bilateral rales at the bases, no wheeze, no accessory muscle use, supplemental oxygen Abdominal: soft, has a wound VAC, nondistended, ostomy in place, NG tube Ext: no gross muscle atrophy, no contractures Neuro: Somnolent Psych: Unable to assess Data Reviewed Today: Pertinent Labs: WBC 17.3, hemoglobin 8.5, platelet 138, creatinine 2.57, BUN/creatinine 135 Imaging: No new imaging Assessment and Plan: Acute metabolic encephalopathy, likely uremic Septic shock, resolved Bowel ischemia, status post surgery Ischemic hepatitis, improving Mechanical ventilation, now extubated Pulmonary vascular congestion Acute kidney injury on chronic kidney disease, now requiring intermittent dialysis Hypocalcemia, resolved Hyperkalemia, resolved Lactic acidosis High anion gap metabolic acidosis, resolved Possible cirrhosis Right bundle branch block Hypothyroidism Acute normocytic anemia Thrombocytopenia -Pulmonology note reviewed, patient is critical -Nephrology note reviewed, may not be able to tolerate renal replacement therapy -Had extensive discussion with son, patient can be transitioned to comfort care measures only -Hospice consulted DVT ppx: SCDs Code status: No code Anticipated discharge place/time: Patient expected to in the hospital Objective - Vital Signs Vital signs: Vital Signs Temp 97.6 F 07/12/22 11:38 Pulse 107 H 07/12/22 11:38 Resp 14 07/12/22 11:38 BP 83/34 07/12/22 11:38 Pulse Ox 100 07/12/22 10:00 FiO2 35 07/07/22 20:00 Intake & Output 07/11/22 07/12/22 07/12/22 18:59 06:59 18:59 Intake Total 1138.2 560 1640 Output Total 1680 605 450 Balance -541.8 -45 1190 Weight 71.6 kg 71 kg Intake: IV 530 560 115 0.9 130 110 40 Meropenem 500 mg In 100 Sodium Chloride 0.9% 100 ml @ 33.3 mls/hr IVPB Q24HR [facility] Rx#:[id number] Mvi, Adult No.4 with Vit 300 K 10 ml Trace (Conc-1Ml/ Dose) 1 ml Sodium Acetate 30 meq Potassium Chloride 20 meq Calcium Gluconate 1.5 gm Magnesium Sulfate gm 1 gm In Amino Acid 5%-D15w 1, 000 ml @ 75 mls/hr IV .BY DURATION [facility] Rx#: [id number] Mvi, Adult No.4 with Vit 450 75 K 10 ml Trace (Conc-1Ml/ Dose) 1 ml Sodium Acetate 50 meq Potassium Chloride 20 meq Calcium Gluconate 1.5 gm Magnesium Sulfate gm 0.5 gm In Amino Acid 5%-D15w 1,000 ml @ 75 mls/hr IV . BY DURATION [facility] Rx#: [id number] Intake, IV Titration 608.2 1225 Amount Fat Emulsion 20% 250 ml @ 83.2 20.833 mls/hr IV MoFr@ 1200 [facility] Rx#:[id number] Mvi, Adult No.4 with Vit 225 K 10 ml Trace (Conc-1Ml/ Dose) 1 ml Sodium Acetate 100 meq Potassium Chloride 20 meq Calcium Gluconate 1.5 gm In Amino Acid 5%-D15w 1,000 ml @ 75 mls/hr IV .BY DURATION [facility] Rx#:[id number] Mvi, Adult No.4 with Vit 525 K 10 ml Trace (Conc-1Ml/ Dose) 1 ml Sodium Acetate 80 meq Potassium Chloride 20 meq Calcium Gluconate 1.5 gm In Amino Acid 5%-D15w 1,000 ml @ 75 mls/hr IV .BY DURATION [facility] Rx#:[id number] Sodium Chloride 0.9% 1, 1000 000 ml @ 999 mls/hr IV . Q1H1M [facility] Rx#:[id number] Oral 0 Tube Feeding 0 Hemodialysis 300 Output: Gastric Drainage 500 200 300 Drainage 135 40 0 Left Abdomen 60 40 0 Medial Abdomen 75 Urine 570 365 130 Stool 200 Hemodialysis 20 Other 275 Other: Voiding Method Indwelling Catheter Indwelling Catheter Indwelling Catheter ABP, PAP, CO, CI - Last Documented Arterial Blood Pressure 95/39 - Labs CBC & Chem 7: 07/12/22 04:11 07/12/22 04:11 Labs: Abnormal Lab Results - Last 24 Hours (Table) 07/11/22 07/11/22 07/12/22 Range/Units 18:28 23:46 04:11 WBC (3.8-10.6) k/uL RBC (3.80-5.40) m/uL Hgb (11.4-16.0) gm/dL Hct (34.0-46.0) % RDW (11.5-15.5) % Plt Count (150-450) k/uL Sodium 128 L (137-145) mmol/L Chloride 97 L (98-107) mmol/L Carbon Dioxide 21 L (22-30) mmol/L BUN 135 H* (7-17) mg/dL Creatinine 3.57 H (0.52-1.04) mg/dL Glucose 146 H (74-99) mg/dL POC Glucose (mg/dL) 168 H 141 H (70-110) mg/dL Calcium 7.0 L (8.4-10.2) mg/dL Magnesium 2.4 H (1.6-2.3) mg/dL 07/12/22 07/12/22 07/12/22 Range/Units 04:11 05:36 11:27 WBC 17.3 H (3.8-10.6) k/uL RBC 2.83 L (3.80-5.40) m/uL Hgb 8.5 L (11.4-16.0) gm/dL Hct 26.4 L (34.0-46.0) % RDW 17.7 H (11.5-15.5) % Plt Count 138 L (150-450) k/uL Sodium (137-145) mmol/L Chloride (98-107) mmol/L Carbon Dioxide (22-30) mmol/L BUN (7-17) mg/dL Creatinine (0.52-1.04) mg/dL Glucose (74-99) mg/dL POC Glucose (mg/dL) 170 H 143 H (70-110) mg/dL Calcium (8.4-10.2) mg/dL Magnesium (1.6-2.3) mg/dL
--- NOTE | 2022-07-12 12:25 | P.PN ---
Subjective Progress Note Date: 07/12/22 Principal diagnosis: Acute kidney injury requiring hemodialysis Patient seen today as a follow-up for acute kidney injury with need for temporary hemodialysis. Patient had urine output had improved initially last hemodialysis on 07/08/2022. Patient scheduled to undergo hemodialysis today as a BUN and creatinine have been worsening. However patient's family is at bedside and considering comfort/hospice care. Objective - Vital Signs Vital signs: Vital Signs Temp 97.6 F 07/12/22 11:38 Pulse 107 H 07/12/22 11:38 Resp 14 07/12/22 11:38 BP 83/34 07/12/22 11:38 Pulse Ox 100 07/12/22 10:00 FiO2 35 07/07/22 20:00 Intake & Output 07/11/22 07/12/22 07/12/22 18:59 06:59 18:59 Intake Total 1138.2 560 1640 Output Total 1680 605 450 Balance -541.8 -45 1190 Weight 71.6 kg 71 kg Intake: IV 530 560 115 0.9 130 110 40 Meropenem 500 mg In 100 Sodium Chloride 0.9% 100 ml @ 33.3 mls/hr IVPB Q24HR [facility] Rx#:[id number] Mvi, Adult No.4 with Vit 300 K 10 ml Trace (Conc-1Ml/ Dose) 1 ml Sodium Acetate 30 meq Potassium Chloride 20 meq Calcium Gluconate 1.5 gm Magnesium Sulfate gm 1 gm In Amino Acid 5%-D15w 1, 000 ml @ 75 mls/hr IV .BY DURATION [facility] Rx#: [id number] Mvi, Adult No.4 with Vit 450 75 K 10 ml Trace (Conc-1Ml/ Dose) 1 ml Sodium Acetate 50 meq Potassium Chloride 20 meq Calcium Gluconate 1.5 gm Magnesium Sulfate gm 0.5 gm In Amino Acid 5%-D15w 1,000 ml @ 75 mls/hr IV . BY DURATION [facility] Rx#: [id number] Intake, IV Titration 608.2 1225 Amount Fat Emulsion 20% 250 ml @ 83.2 20.833 mls/hr IV MoFr@ 1200 [facility] Rx#:[id number] Mvi, Adult No.4 with Vit 225 K 10 ml Trace (Conc-1Ml/ Dose) 1 ml Sodium Acetate 100 meq Potassium Chloride 20 meq Calcium Gluconate 1.5 gm In Amino Acid 5%-D15w 1,000 ml @ 75 mls/hr IV .BY DURATION [facility] Rx#:[id number] Mvi, Adult No.4 with Vit 525 K 10 ml Trace (Conc-1Ml/ Dose) 1 ml Sodium Acetate 80 meq Potassium Chloride 20 meq Calcium Gluconate 1.5 gm In Amino Acid 5%-D15w 1,000 ml @ 75 mls/hr IV .BY DURATION [facility] Rx#:[id number] Sodium Chloride 0.9% 1, 1000 000 ml @ 999 mls/hr IV . Q1H1M [facility] Rx#:[id number] Oral 0 Tube Feeding 0 Hemodialysis 300 Output: Gastric Drainage 500 200 300 Drainage 135 40 0 Left Abdomen 60 40 0 Medial Abdomen 75 Urine 570 365 130 Stool 200 Hemodialysis 20 Other 275 Other: Voiding Method Indwelling Catheter Indwelling Catheter Indwelling Catheter ABP, PAP, CO, CI - Last Documented Arterial Blood Pressure 95/39 - Exam General appearance: The patient is sleeping, easily arousable. HET: Head is normocephalic and atraumatic. NG tube in place. Neck: Supple without lymphadenopathy. Trachea midline. Extremities: Normal skin color and turgor. Left groin with temporary HD catheter in place, no bleeding, no hematoma noted. Neurological: Alert, weak, tired. - Labs CBC & Chem 7: 07/12/22 04:11 07/12/22 04:11 Labs: Abnormal Lab Results - Last 24 Hours (Table) 07/11/22 07/11/22 07/12/22 Range/Units 18:28 23:46 04:11 WBC (3.8-10.6) k/uL RBC (3.80-5.40) m/uL Hgb (11.4-16.0) gm/dL Hct (34.0-46.0) % RDW (11.5-15.5) % Plt Count (150-450) k/uL Sodium 128 L (137-145) mmol/L Chloride 97 L (98-107) mmol/L Carbon Dioxide 21 L (22-30) mmol/L BUN 135 H* (7-17) mg/dL Creatinine 3.57 H (0.52-1.04) mg/dL Glucose 146 H (74-99) mg/dL POC Glucose (mg/dL) 168 H 141 H (70-110) mg/dL Calcium 7.0 L (8.4-10.2) mg/dL Magnesium 2.4 H (1.6-2.3) mg/dL 07/12/22 07/12/22 07/12/22 Range/Units 04:11 05:36 11:27 WBC 17.3 H (3.8-10.6) k/uL RBC 2.83 L (3.80-5.40) m/uL Hgb 8.5 L (11.4-16.0) gm/dL Hct 26.4 L (34.0-46.0) % RDW 17.7 H (11.5-15.5) % Plt Count 138 L (150-450) k/uL Sodium (137-145) mmol/L Chloride (98-107) mmol/L Carbon Dioxide (22-30) mmol/L BUN (7-17) mg/dL Creatinine (0.52-1.04) mg/dL Glucose (74-99) mg/dL POC Glucose (mg/dL) 170 H 143 H (70-110) mg/dL Calcium (8.4-10.2) mg/dL Magnesium (1.6-2.3) mg/dL Assessment and Plan Assessment: 1. Acute on chronic kidney disease requiring hemodialysis status post temporary HD catheter placement 2. Metabolic acidosis 3. Sepsis 4. Small bowel obstruction with ischemic bowel status post exploratory lap and segmental bowel resection Plan: Continue with recommendations from nephrology for hemodialysis. Await family and patient's decision on goals of care. Will be on standby if further needed please reach out to us. Thank you for this consultation. The impression and plan of care has been dictated as directed. I performed a history and examination of this patient, discussed the same with the dictator. I agree with the dictator's note ,documented as a scribe. Any additional findings or plans will be noted.
[2022-07-12 13:30] VITALS: BP 106/41; PULSE 87; RESP 13
[2022-07-12] MEDS: CALCIUM GLUCONATE IV SCH ×6 (13:36)
[2022-07-12] MEDS: SODIUM ACETATE IV SCH ×6 (13:36)
[2022-07-12] MEDS: [UNRECOGNIZED DRUG - OTHER] IV SCH ×6 (13:36)
[2022-07-12] MEDS: POTASSIUM CHLORIDE IV SCH ×6 (13:36)
--- NOTE | 2022-07-13 07:41 | P.DS ---
Providers Date of admission: 07/03/22 16:51 Expected date of discharge: 07/13/22 Attending physician: Johnathan Stock MD Consults: 07/02/22 08:33 Consult Physician Routine Consulting Provider: Amira Winn Consult Reason/Comments: intractable abd pain, inconclusive ct findings Do you want consulting provider notified?: Yes 07/03/22 09:45 Consult Physician Urgent Consulting Provider: Latisha Gonzalez Consult Reason/Comments: MACI, on CKD Do you want consulting provider notified?: Yes 07/03/22 17:03 Consult Physician Stat Consulting Provider: Ronald Quintero Consult Reason/Comments: patient going to OR, septic shock, will be coming to ICU after Do you want consulting provider notified?: Yes 07/04/22 11:56 Consult Physician Stat Consulting Provider: Gavin Mota Consult Reason/Comments: HD catheter placement Do you want consulting provider notified?: Yes Primary care physician: [facility] Course: Discharge Diagnosis: Acute metabolic encephalopathy, likely uremic Septic shock Bowel ischemia, status post surgery Ischemic hepatitis Mechanical ventilation Pulmonary vascular congestion Acute kidney injury on chronic kidney disease, now requiring intermittent dialysis Hypocalcemia Hyperkalemia Lactic acidosis High anion gap metabolic acidosis Possible cirrhosis Right bundle branch block Hypothyroidism Acute normocytic anemia Thrombocytopenia Hospital Course: 81-year-old female with history of IBS, hypothyroidism, depression, gout, anxiety presenting with acute abdominal pain. In the ED, temperature 97.5, pulse 85, respiratory rate 19, blood pressure 93/64, saturating at 99% on room air. WBC 10.6, sodium 134, potassium 5.1, bicarb 15, creatinine 2.07, glucose 222, AST 48, ALT 39, troponin 0.012. 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 EKG showed normal sinus rhythm, right bundle branch block. Chest x- ray showed no acute process. Patient admitted for abdominal pain, nausea vomiting, possible ileus. Surgery consulted. In the ER, patient had a syncopal episode. A,, patient clearly has signs of severe sepsis, lactate is trending up, severe leukocytosis with bandemia. Likely source is abdomen. On broad- spectrum antibiotics, also has worsening acute kidney injury. For acidosis, started on IV sodium bicarbonate. Patient continued to worsen, and septic and hypovolemic shock. She was taken emergently for surgery. She had exploratory laparoscopy with segmental small bowel resection, was noted to have bowel ischemia. Currently she is intubated and sedated in the medical ICU. She had temp dialysis catheter placed and was started on iHD. Had second look operation on 07/05, had necrotic bowel removed and had ileostomy placement. Pt continued to have blood loss and thrombocytopenia issues. Extubated, on nasal cannula. NG tube still in place. Remains in the medical ICU. Patient started to have acute encephalopathy. Likely in the setting of uremia. Unable to tolerate dialysis due to low blood pressure. Family decided for comfort care measures only. Patient seen and examined at bedside. Vital signs reviewed and stable. General: Not in acute distress, tired-appearing Derm: warm, dry Head: atraumatic, normocephalic, symmetric Eyes: pupils equal round reactive to light ENT: Nose and ears atraumatic Neck: No thyromegaly, supple Mouth: no lip lesion, mucus membranes moist Cardiovascular: S1S2 reg, tachycardic, no murmur, peripheral edema Lungs: Bilateral rales at the bases, no wheeze, no accessory muscle use, supplemental oxygen Abdominal: soft, has a wound VAC, nondistended, ostomy in place, NG tube Ext: no gross muscle atrophy, no contractures Neuro: Somnolent Psych: Unable to assess Patient being discharged to inpatient hospice. Discharged on 07/12/22. Patient Condition at Discharge: Stable Plan - Discharge Summary Discharge Rx Participant: No New Discharge Prescriptions: No Action Levothyroxine Sodium [Synthroid] 75 mcg PO DAILY allopurinoL [Zyloprim] 100 mg PO DAILY Pantoprazole Sodium [Protonix] 40 mg PO HS Tamsulosin [Flomax] 0.4 mg PO DAILY Ferrous Gluconate 240 mg PO DAILY Cholecalciferol [Vitamin D3 (10 Mcg = 400 Iu)] 10 mcg PO DAILY Cyanocobalamin [Vitamin B-12] 500 mcg PO DAILY Citalopram Hydrobromide [CeleXA] 40 mg PO DAILY Furosemide [Lasix] 20 mg PO DAILY PRN PRN Reason: Edema ALPRAZolam [Xanax] 0.5 mg PO HS Docusate [Colace] 100 mg PO DAILY PRN PRN Reason: Constipation Discharge Medication List Levothyroxine Sodium [Synthroid] 75 mcg PO DAILY 10/13/17 [History] Citalopram Hydrobromide [CeleXA] 40 mg PO DAILY 08/25/20 [History] allopurinoL [Zyloprim] 100 mg PO DAILY 08/25/20 [History] Pantoprazole Sodium [Protonix] 40 mg PO HS 11/13/21 [History] ALPRAZolam [Xanax] 0.5 mg PO HS 07/02/22 [History] Cholecalciferol [Vitamin D3 (10 Mcg = 400 Iu)] 10 mcg PO DAILY 07/02/22 [History] Cyanocobalamin [Vitamin B-12] 500 mcg PO DAILY 07/02/22 [History] Docusate [Colace] 100 mg PO DAILY PRN 07/02/22 [History] Ferrous Gluconate 240 mg PO DAILY 07/02/22 [History] Furosemide [Lasix] 20 mg PO DAILY PRN 07/02/22 [History] Tamsulosin [Flomax] 0.4 mg PO DAILY 07/02/22 [History] Follow up Appointment(s)/Referral(s): Kayden Trammell MD [Primary Care Provider] - 1-2 days Discharge Disposition: [facility]CH TO [facility]
[2022-07-13] MEDS ORDERED: LEVOTHYROXINE IVP 100 MCG/5 ML VIAL IV SCH (09:00)
--- NOTE | 2022-07-13 10:09 | P.ANPRN ---
Procedure Note - Anesthesia - Invasive Line Right Arterial Line Time Out Performed: Yes Date of Procedure: 07/03/22 Time of Procedure: 18:09 Location of Patient: PreOp Preparation: Sterile Prep, Sterile Dressing Arterial Line Location: Femoral Ultrasound Used: No Purpose - Visualization and Identification of Vasculature: No Image Stored and Saved: No Narrative: Central line placement per sterile protocol utilized.
--- NOTE | 2022-07-13 10:10 | P.ANPRN ---
Procedure Note - Anesthesia - Invasive Line Right Central Line Time Out Performed: Yes Date of Procedure: 07/03/22 Time of Procedure: 17:55 Location of Patient: OR Preparation: Sterile Prep, Sterile Dressing Central Line Location: Internal Jugular Ultrasound Used: No Purpose - Visualization and Identification of Vasculature: No Image Stored and Saved: No Narrative: Central line placement per sterile protocol utilized.
== END 2022-07-12 13:51 | disposition hospice, inpatient (51) | DRG 853 ==
LOC: EC 03:00 → 6NMEDSUR 08:33 → 3SCARD 15:01 → OBSVTOIN 07-03 16:51 → 2SICU 07-03 17:30
PROVIDERS: ADMIT Student in an Organized Health Care Education/Training Program; ATTEND Student in an Organized Health Care Education/Training Program
PROC: 30233N1 Transfusion of Nonautologous Red Blood Cells into Peripheral Vein, Percutaneous Approach (ICD-10-PCS; 2022-07-03)
PROC: 0D9670Z Drainage of Stomach with Drainage Device, Via Natural or Artificial Opening (ICD-10-PCS; 2022-07-03)
PROC: 5A1945Z Respiratory Ventilation, 24-96 Consecutive Hours (ICD-10-PCS; 2022-07-03)
PROC: 0DT80ZZ Resection of Small Intestine, Open Approach (ICD-10-PCS; principal; 2022-07-03 16:51)
PROC: 06HY33Z Insertion of Infusion Device into Lower Vein, Percutaneous Approach (ICD-10-PCS; 2022-07-04)
PROC: 3E033XZ Introduction of Vasopressor into Peripheral Vein, Percutaneous Approach (ICD-10-PCS; 2022-07-04)
PROC: 5A1D70Z Performance of Urinary Filtration, Intermittent, Less than 6 Hours Per Day (ICD-10-PCS; 2022-07-04)
PROC: 6A551Z3 Pheresis of Plasma, Multiple (ICD-10-PCS; 2022-07-04)
PROC: 0D1B0Z4 Bypass Ileum to Cutaneous, Open Approach (ICD-10-PCS; 2022-07-05)
PROC: 0DBB0ZZ Excision of Ileum, Open Approach (ICD-10-PCS; 2022-07-05)
PROC: 0DH60UZ Insertion of Feeding Device into Stomach, Open Approach (ICD-10-PCS; 2022-07-05)
PROC: 3E0G76Z Introduction of Nutritional Substance into Upper GI, Via Natural or Artificial Opening (ICD-10-PCS; 2022-07-05)
PROC: 30233K1 Transfusion of Nonautologous Frozen Plasma into Peripheral Vein, Percutaneous Approach (ICD-10-PCS; 2022-07-05)
PROC: 3E0336Z Introduction of Nutritional Substance into Peripheral Vein, Percutaneous Approach (ICD-10-PCS; 2022-07-05)
PROC: 30233R1 Transfusion of Nonautologous Platelets into Peripheral Vein, Percutaneous Approach (ICD-10-PCS; 2022-07-06)
DX: A41.9 Sepsis, unspecified organism (principal); G93.41 Metabolic encephalopathy; J96.01 Acute respiratory failure with hypoxia; K55.029 Acute infarction of small intestine, extent unspecified; N17.0 Acute kidney failure with tubular necrosis; R65.21 Severe sepsis with septic shock; R57.1 Hypovolemic shock; K72.00 Acute and subacute hepatic failure without coma; N18.6 End stage renal disease; K94.11 Enterostomy hemorrhage; K55.8 Other vascular disorders of intestine; E87.20 Acidosis, unspecified; D68.9 Coagulation defect, unspecified; I96 Gangrene, not elsewhere classified; I13.11 Hypertensive heart and chronic kidney disease without heart failure, with stage 5 chronic kidney disease, or end stage renal disease; D62 Acute posthemorrhagic anemia; I47.1 Supraventricular tachycardia; E87.1 Hypo-osmolality and hyponatremia; Z51.5 Encounter for palliative care; Z66 Do not resuscitate; I95.3 Hypotension of hemodialysis; E88.09 Other disorders of plasma-protein metabolism, not elsewhere classified; D63.1 Anemia in chronic kidney disease; E83.51 Hypocalcemia; K74.60 Unspecified cirrhosis of liver; D69.59 Other secondary thrombocytopenia; R54 Age-related physical debility; E03.9 Hypothyroidism, unspecified; F32.A Depression, unspecified; I45.10 Unspecified right bundle-branch block; K56.51 Intestinal adhesions [bands], with partial obstruction; K63.2 Fistula of intestine; J90 Pleural effusion, not elsewhere classified; R18.8 Other ascites; K92.2 Gastrointestinal hemorrhage, unspecified; Z16.24 Resistance to multiple antibiotics; E87.5 Hyperkalemia; F41.9 Anxiety disorder, unspecified; M10.9 Gout, unspecified; K58.2 Mixed irritable bowel syndrome; K21.9 Gastro-esophageal reflux disease without esophagitis; B96.1 Klebsiella pneumoniae [K. pneumoniae] as the cause of diseases classified elsewhere; E86.1 Hypovolemia; K44.9 Diaphragmatic hernia without obstruction or gangrene; E87.70 Fluid overload, unspecified; S32.502 Unspecified fracture of left pubis; Z99.2 Dependence on renal dialysis; Z87.11 Personal history of peptic ulcer disease; Z79.890 Hormone replacement therapy; Z79.899 Other long term (current) drug therapy; Z80.0 Family history of malignant neoplasm of digestive organs
CPT/HCPCS: 36410; 36415; 71045; 74018; 74176; 76937; 80048; 80053; 80076; 81001; 82150; 82330; 82803; 82805; 83036; 83605; 83690; 83735; 84100; 84132; 84439; 84443; 84478; 84484; 85025; 85027; 85610; 85730; 86706; 86850; 86900; 86901; 86920; 87040; 87070; 87077; 87186; 87205; 87340; 88307; 90935; 93005; 93306; 94002; 94003; 94640; 94660; 96361; 96374; 96375; 96376; 99285

== ENCOUNTER 2022-07-12 13:23 | Inpatient (IN) | payer MEDICAID ==
[2022-07-12] MEDS ORDERED: LORazepam 2 MG/ML INJ IV PRN (13:28)
[2022-07-12] MEDS ORDERED: ACETAMINOPHEN SUPPOSITORY 650 MG SUPP RECTAL PRN (13:28)
[2022-07-12] MEDS: MORPHINE SULFATE 2 MG/ML SYRINGE IV PRN ×2 (14:05→22:14)
[2022-07-12] MEDS: SCOPOLAMINE 1 MG/72 HR PATCH TRANSDERM SCH (14:05)
[2022-07-12] MEDS: MORPHINE SULFATE (100 MG/2 ML) 100 MG in SODIUM CHLORIDE 0.9% 100 ML IV SCH (14:15)
--- NOTE | 2022-07-12 14:51 | P.PN ---
Progress Note - Text Progress Note Date: 07/12/22 Patient has not been progressing. Attempt was made at dialysis today due to worsening kidney kidney function and she didn't tolerate it. Family decided to make her Comfort Care. I spoke with him. We will follow up anything changes and they would like her evaluated.
[2022-07-12 20:47] VITALS: BP 118/74; TEMP 98.9
[2022-07-13] MEDS: MORPHINE SULFATE (100 MG/2 ML) 100 MG in SODIUM CHLORIDE 0.9% 100 ML IV SCH (10:43)
--- NOTE | 2022-07-13 12:57 | P.HPIM ---
History of Present Illness H&P Date: 07/13/22 81-year-old female with history of IBS, hypothyroidism, depression, gout, anxiety presenting with acute abdominal pain. In the ED, temperature 97.5, pulse 85, respiratory rate 19, blood pressure 93/64, saturating at 99% on room air. WBC 10.6, sodium 134, potassium 5.1, bicarb 15, creatinine 2.07, glucose 222, AST 48, ALT 39, troponin 0.012. 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 EKG showed normal sinus rhythm, right bundle branch block. Chest x- ray showed no acute process. Patient admitted for abdominal pain, nausea vomiting, possible ileus. Surgery consulted. In the ER, patient had a syncopal episode. Patient was in severe sepsis, lactate is trending up, severe leukocytosis with bandemia. Likely source is abdomen. On broad-spectrum antibiotics, also has worsening acute kidney injury. For acidosis, started on IV sodium bicarbonate. Patient continued to worsen, and septic and hypovolemic shock. She was taken emergently for surgery. She had exploratory laparoscopy with segmental small bowel resection, was noted to have bowel ischemia. Was intubated and sedated in the medical ICU. She had temp dialysis catheter placed and was started on iHD. Had second look operation on 07/05, had necrotic bowel removed and had ileostomy placement. Pt continued to have blood loss and thrombocytopenia issues. Extubated, on nasal cannula. NG tube still in place. Patient started to have acute encephalopathy. Likely in the setting of uremia. Unable to tolerate dialysis due to low blood pressure. Family decided for comfort care measures only. Patient seen and examined at bedside. Vital signs reviewed General: no distress Eyes: pupils equal round reactive to light Cardiovascular: S1S2 reg, no edema Lungs: no accessory muscle use Abdominal:nontender to palpation, no guarding Neuro: Somnolent Assessment/Plan: Comfort care measures only Hospice care -On IV morphine drip, Ativan 1 mg IV every 2 hours as needed, Tylenol as needed, atropine and scopolamine for secretions -Hospice following Patient expected to during this hospitalization. Past Medical History Past Medical History: GERD/Reflux, GI Bleed, Hypertension, Osteoarthritis (OA), Renal Disease, Syncope, Thyroid Disorder, Vascular Disorder Additional Past Medical History / Comment(s): CKD stage III, IBS, past constipation but diarrhea past few months, duodenal and antral ulcer/acute anemia with transfusion, chronic anemia, hiatal hernia, varicosities, (L) side sciatica, arthritis in neck and L hip, hypothyroid, sinus problems. History of Any Multi-Drug Resistant Organisms: None Reported Past Surgical History: Appendectomy, Cholecystectomy, Hysterectomy Additional Past Surgical History / Comment(s): D&C, EGD, colonoscopy, yovana cataracts Past Anesthesia/Blood Transfusion Reactions: No Reported Reaction Additional Past Anesthesia/Blood Transfusion Reaction / Comment(s): Pt has received blood in past without reaction. Smoking Status: Never smoker - Past Family History Father Family Medical History: Cancer Additional Family Medical History / Comment(s): Father at the age of 57yrs from cancer which pt thinks was esophageal. Mother Family Medical History: Hypertension Additional Family Medical History / Comment(s): Mother lived to be 97yrs old. Medications and Allergies Home Medications Medication Instructions Recorded Confirmed Type Levothyroxine Sodium [Synthroid] 75 mcg PO DAILY 10/13/17 07/02/22 History Citalopram Hydrobromide [CeleXA] 40 mg PO DAILY 08/25/20 07/02/22 History allopurinoL [Zyloprim] 100 mg PO DAILY 08/25/20 07/02/22 History Pantoprazole Sodium [Protonix] 40 mg PO HS 11/13/21 07/02/22 History ALPRAZolam [Xanax] 0.5 mg PO HS 07/02/22 07/02/22 History Cholecalciferol [Vitamin D3 (10 10 mcg PO DAILY 07/02/22 07/02/22 History Mcg = 400 Iu)] Cyanocobalamin [Vitamin B-12] 500 mcg PO DAILY 07/02/22 07/02/22 History Docusate [Colace] 100 mg PO DAILY PRN 07/02/22 07/02/22 History Ferrous Gluconate 240 mg PO DAILY 07/02/22 07/02/22 History Furosemide [Lasix] 20 mg PO DAILY PRN 07/02/22 07/02/22 History Tamsulosin [Flomax] 0.4 mg PO DAILY 07/02/22 07/02/22 History Allergies Allergy/AdvReac Type Severity Reaction Status Date / Time No Known Allergies Allergy Verified 07/02/22 11:26 Physical Exam Vitals: Vital Signs Temp Resp BP Pulse Ox 07/13/22 07:49 16 07/13/22 07:23 16 07/13/22 06:20 14 07/13/22 02:27 13 07/12/22 21:34 17 07/12/22 21:29 17 07/12/22 20:00 98.9 F 12 118/74 100 Intake and Output 07/12/22 07/13/22 07/13/22 22:59 06:59 14:59 Intake Total 16.031 30.957 25.33 Output Total 825 Balance -808.969 30.957 25.33 Intake: Intake, IV Titration 16.031 30.957 25.33 Amount Morphine Sulfate (100 mg/ 16.031 30.957 25.33 2 ml) 100 mg In Sodium Chloride 0.9% 100 ml @ 1 MG/HR 1.02 mls/hr IV . Q24H [facility] Rx#:[id number] Oral 0 Tube Feeding 0 Output: Gastric Drainage 400 Drainage 25 Left Lower 25 Urine 300 Stool 100 Other: Voiding Method Indwelling Catheter
[2022-07-14] MEDS: MORPHINE SULFATE (100 MG/2 ML) 100 MG in SODIUM CHLORIDE 0.9% 100 ML IV SCH ×2 (05:37→15:51)
--- NOTE | 2022-07-14 12:57 | P.PN ---
Subjective Progress Note Date: 07/14/22 Subjective: Patient seen and examined at bedside. Family also present at bedside. Patient is comfortable. Pertinent positives and negatives as discussed above, a complete review of systems was performed and all other systems are negative. Vitals Signs Reviewed. General: no distress Eyes: pupils equal round reactive to light Cardiovascular: S1S2 reg, no edema Lungs: no accessory muscle use Abdominal:nontender to palpation, no guarding Neuro: Somnolent Data Reviewed Today: Respiratory rate 12, on 2 L nasal cannula Assessment and Plan: Comfort care measures only Hospice care -On IV morphine drip, Ativan 1 mg IV every 2 hours as needed, Tylenol as needed, atropine and scopolamine for secretions -Hospice following Patient expected to during this hospitalization. Objective - Vital Signs Vital signs: Vital Signs Temp 98.9 F 07/12/22 20:00 Pulse Resp 12 07/14/22 08:21 BP 118/74 07/12/22 20:00 Pulse Ox 100 07/12/22 20:00 FiO2 Intake & Output 07/13/22 07/14/22 07/14/22 18:59 06:59 18:59 Intake Total 25.33 103.054 Output Total 10 Balance 25.33 93.054 Intake: Intake, IV Titration 25.33 103.054 Amount Morphine Sulfate (100 mg/ 25.33 103.054 2 ml) 100 mg In Sodium Chloride 0.9% 100 ml @ 1 MG/HR 1.02 mls/hr IV . Q24H [facility] Rx#:[id number] Output: Drainage 10 Left Lower 10 Other: Voiding Method Indwelling Catheter
[2022-07-15] MEDS: MORPHINE SULFATE (100 MG/2 ML) 100 MG in SODIUM CHLORIDE 0.9% 100 ML IV SCH ×4 (01:52→19:25)
[2022-07-15 02:49] VITALS: RESP 16
[2022-07-15] MEDS: ATROPINE OPHTH SOLN 1% 5ML BTL SUBLINGUAL PRN ×2 (03:11→08:20)
[2022-07-15 08:00] VITALS: BMI 30.5
--- NOTE | 2022-07-15 13:09 | P.PN ---
Subjective Progress Note Date: 07/15/22 Subjective: Patient seen and examined at bedside. Patient is comfortable. Pertinent positives and negatives as discussed above, a complete review of systems was performed and all other systems are negative. Vitals Signs Reviewed. General: no distress Eyes: pupils equal round reactive to light Cardiovascular: S1S2 reg, no edema Lungs: no accessory muscle use Abdominal:nontender to palpation, no guarding Neuro: Somnolent Data Reviewed Today: Respiratory rate 16, on 2 L nasal cannula Assessment and Plan: Comfort care measures only Hospice care -On IV morphine drip currently 19mg/hr, Ativan 1 mg IV every 2 hours as needed, Tylenol as needed, atropine and scopolamine for secretions -Hospice following Patient expected to during this hospitalization. Objective - Vital Signs Vital signs: Vital Signs Temp 98.9 F 07/12/22 20:00 Pulse Resp 16 07/15/22 02:49 BP 118/74 07/12/22 20:00 Pulse Ox 99 07/15/22 08:48 FiO2 Intake & Output 07/14/22 07/15/22 07/15/22 18:59 06:59 18:59 Intake Total 94.86 110.16 151.215 Output Total 0 110 Balance 94.86 0.16 151.215 Weight 71 kg Intake: Intake, IV Titration 94.86 110.16 151.215 Amount Morphine Sulfate (100 mg/ 94.86 110.16 151.215 2 ml) 100 mg In Sodium Chloride 0.9% 100 ml @ 1 MG/HR 1.02 mls/hr IV . Q24H [facility] Rx#:[id number] Oral 0 Output: Drainage 30 Left Lower 30 Urine 0 80 Uretheral (Person) 30
[2022-07-15] MEDS: SCOPOLAMINE 1 MG/72 HR PATCH TRANSDERM SCH (17:21)
--- NOTE | 2022-07-16 14:20 | P.DS ---
Providers Date of admission: 07/12/22 13:52 Attending physician: Johnathan Stock MD Primary care physician: [facility] Course: Discharge Diagnosis: Acute metabolic encephalopathy, likely uremic Septic shock Bowel ischemia, status post surgery Ischemic hepatitis Mechanical ventilation Pulmonary vascular congestion Acute kidney injury on chronic kidney disease, now requiring intermittent dialysis Hypocalcemia Hyperkalemia Lactic acidosis High anion gap metabolic acidosis Possible cirrhosis Right bundle branch block Hypothyroidism Acute normocytic anemia Thrombocytopenia Hospital Course: 81-year-old female with history of IBS, hypothyroidism, depression, gout, anxiety presenting with acute abdominal pain. In the ED, temperature 97.5, pulse 85, respiratory rate 19, blood pressure 93/64, saturating at 99% on room air. WBC 10.6, sodium 134, potassium 5.1, bicarb 15, creatinine 2.07, glucose 222, AST 48, ALT 39, troponin 0.012. 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 EKG showed normal sinus rhythm, right bundle branch block. Chest x- ray showed no acute process. Patient admitted for abdominal pain, nausea vomiting, possible ileus. Surgery consulted. In the ER, patient had a syncopal episode. A,, patient clearly has signs of severe sepsis, lactate is trending up, severe leukocytosis with bandemia. Likely source is abdomen. On broad- spectrum antibiotics, also has worsening acute kidney injury. For acidosis, started on IV sodium bicarbonate. Patient continued to worsen, and septic and hypovolemic shock. She was taken emergently for surgery. She had exploratory laparoscopy with segmental small bowel resection, was noted to have bowel isch emia. Currently she is intubated and sedated in the medical ICU. She had temp dialysis catheter placed and was started on iHD. Had second look operation on 07/05, had necrotic bowel removed and had ileostomy placement. Pt continued to have blood loss and thrombocytopenia issues. Extubated, on nasal cannula. NG tube still in place. Remains in the medical ICU. Patient started to have acute encephalopathy. Likely in the setting of uremia. Unable to tolerate dialysis due to low blood pressure. Family decided for comfort care measures only. Was admitted as inpatient hospice. Patient on 07/15/22 at 2125. Plan - Discharge Summary New Discharge Prescriptions: No Action Levothyroxine Sodium [Synthroid] 75 mcg PO DAILY allopurinoL [Zyloprim] 100 mg PO DAILY Pantoprazole Sodium [Protonix] 40 mg PO HS Tamsulosin [Flomax] 0.4 mg PO DAILY Ferrous Gluconate 240 mg PO DAILY Cholecalciferol [Vitamin D3 (10 Mcg = 400 Iu)] 10 mcg PO DAILY Cyanocobalamin [Vitamin B-12] 500 mcg PO DAILY Citalopram Hydrobromide [CeleXA] 40 mg PO DAILY Furosemide [Lasix] 20 mg PO DAILY PRN PRN Reason: Edema ALPRAZolam [Xanax] 0.5 mg PO HS Docusate [Colace] 100 mg PO DAILY PRN PRN Reason: Constipation Discharge Medication List Levothyroxine Sodium [Synthroid] 75 mcg PO DAILY 10/13/17 [History] Citalopram Hydrobromide [CeleXA] 40 mg PO DAILY 08/25/20 [History] allopurinoL [Zyloprim] 100 mg PO DAILY 08/25/20 [History] Pantoprazole Sodium [Protonix] 40 mg PO HS 11/13/21 [History] ALPRAZolam [Xanax] 0.5 mg PO HS 07/02/22 [History] Cholecalciferol [Vitamin D3 (10 Mcg = 400 Iu)] 10 mcg PO DAILY 07/02/22 [History] Cyanocobalamin [Vitamin B-12] 500 mcg PO DAILY 07/02/22 [History] Docusate [Colace] 100 mg PO DAILY PRN 07/02/22 [History] Ferrous Gluconate 240 mg PO DAILY 07/02/22 [History] Furosemide [Lasix] 20 mg PO DAILY PRN 07/02/22 [History] Tamsulosin [Flomax] 0.4 mg PO DAILY 07/02/22 [History]
--- NOTE | 2022-07-18 21:36 | CDI ---
Documentation Clarification Form Date: 07/18/2022 09:16:29 PM From: Keiko Maya Phone: Admit Date: 07/12/2022 01:52:00 PM Patient Name: Deanne Savage I Visit Number: [id number] Discharge Date: 07/15/2022 09:25:00 PM ATTENTION: The Clinical Documentation Specialists (CDI) and [facility] Coding Staff appreciate your assistance in clarifying documentation. Please respond to the clarification below the line at the bottom and electronically sign. The CDI & [facility] Coding staff will review the response and follow-up if needed. Please note: Queries are made part of the Legal Health Record. If you have any questions, please contact the author of this message via ITS. Dr. Johnathan Stock Acutenormocytic anemia is documented per DC Summary. Additional specificity regarding the type of anemia is requested. History/Risk Factors: 81yo F, acutemetabolic encephalopathy,septic shock, Hx bowel ischemia,ischemichepatitis, vent dep, MACI on CKD III, hypocalcemia, hyperkalemia, lactic/metabolic acidosis, cirrhosis, RBBB, hypothyroidism, thrombocytopenia, ileus Clinical indicators: Had second look operation on 07/05, hadnecrotic bowelremovedand had ileostomyplacement. Pt continued to haveblood lossandthrombocytopeniaissues Treatment: Hospice Please clarify the type of anemia: [ ] Acute blood loss anemia [ ] Acute on chronic blood loss anemia [ ] Chronic blood loss anemia [ ] Unable to determine [ ] Other, please specify (Template Last Revised: March 2020) MTDD
== END 2022-07-15 21:25 | disposition expired | DRG 951 ==
LOC: 2SICU 13:52 → 4SSUR 20:19
PROVIDERS: ADMIT Student in an Organized Health Care Education/Training Program; ATTEND Student in an Organized Health Care Education/Training Program
DX: Z51.5 Encounter for palliative care (principal); K72.00 Acute and subacute hepatic failure without coma; R65.21 Severe sepsis with septic shock; A41.9 Sepsis, unspecified organism; G93.41 Metabolic encephalopathy; N17.9 Acute kidney failure, unspecified; E87.20 Acidosis, unspecified; R18.8 Other ascites; K56.7 Ileus, unspecified; S32.502 Unspecified fracture of left pubis; R57.1 Hypovolemic shock; D69.6 Thrombocytopenia, unspecified; K74.60 Unspecified cirrhosis of liver; Z66 Do not resuscitate; N18.30 Chronic kidney disease, stage 3 unspecified; Z93.2 Ileostomy status; E83.51 Hypocalcemia; D63.1 Anemia in chronic kidney disease; E03.9 Hypothyroidism, unspecified; F32.A Depression, unspecified; I12.9 Hypertensive chronic kidney disease with stage 1 through stage 4 chronic kidney disease, or unspecified chronic kidney disease; I45.10 Unspecified right bundle-branch block; E87.5 Hyperkalemia; K58.9 Irritable bowel syndrome, unspecified; F41.9 Anxiety disorder, unspecified; M10.9 Gout, unspecified; Z79.890 Hormone replacement therapy; Z79.899 Other long term (current) drug therapy; Z87.11 Personal history of peptic ulcer disease; Z90.49 Acquired absence of other specified parts of digestive tract
CPT/HCPCS: 94760